=== PATIENT | female | born 1950 | race Caucasian/White ===

== ENCOUNTER → 2019-12-20 11:59 | Outpatient (CLI) | payer OTHER, SELFPAY ==
--- NOTE | ~2019-12-20 | US_ITS ---
US renal BI DATE: 12/20/2019 12:32 INDICATION: Chronic kidney disease stage III. TECHNIQUE: Real-time imaging of kidneys and urinary bladder COMPARISON: 09/01/2014 renal ultrasound examination FINDINGS: The right kidney measures approximately 9.7 cm length, the left kidney 10.8 cm length. No h ydronephrosis of either kidney is evident. There is an up to approximately 12 mm probable right renal cyst. No suspicious renal space occupying mass lesion of either kidney. There is increased echogenicity of the renal parenchyma bilaterally, suggesting bilateral chronic denis al disease. The urinary bladder is not visualized, apparently due to evacuation. IMPRESSION: Bilateral generalized increased renal parenchymal echogenicity, consistent with chronic m edical disease 12 mm probable right renal cyst Reviewed, dictated and finalized at Location [facility]. Reviewed, dictated and finalized at location B. IMPRESSION: Bilateral generalized increased renal parenchymal echogenicity, con sistent with chronic medical disease 12 mm probable right renal cyst
== END ==
PROVIDERS: PCP Family Medicine; Visit Provider Internal Medicine Nephrology
DX: N18.3 Chronic kidney disease, stage 3 (moderate) (principal)
CPT/HCPCS: 76775

== ENCOUNTER → 2020-05-21 09:57 | Outpatient (CLI) | payer OTHER, SELFPAY ==
--- NOTE | ~2020-05-21 | CT_ITS ---
EXAMINATION: CT chest w con DATE: 05/21/2020 10:36 INDICATION: Solitary pulmonary nodule TECHNIQUE: Transaxial computed tomographic images of the chest were obtained after the administration of 75 cc of Omnipaque 350 intravenous contrast. The dose-length product (DLP) was 682.34 mGy-cm. Ite rative reconstruction was used. COMPARISON: 09/12/2018 FINDINGS: An approximately 1.5 x 0.9 cm right perihilar lung nodule on image 52 is not significantly changed in size. Areas of atelectasis in the right middle lobe are unchanged. The lungs are free of a cute opacities. There is no pleural effusion or pneumothorax. The heart size is normal. There is a tr paula pericardial effusion. There is calcified coronary artery atherosclerosis. There are no pathologic ally enlarged thoracic lymph nodes. A stable 2 cm right adrenal mass is consistent with an adenoma. T he gallbladder is surgically absent. There is moderate thoracic spondylosis. IMPRESSION: 1. Stable right middle lobe nodule, probably benign given the lack of interval change. Reviewed, dictated and finalized at location A. NING SUPERVISOR
[2020-05-21 10:24] LABS: Estimated Glomerular Filt Rate 44
== END ==
PROVIDERS: PCP Family Medicine; Visit Provider Nurse Practitioner Family
DX: R91.1 Solitary pulmonary nodule (principal)
CPT/HCPCS: 71260; Q9967

== ENCOUNTER 2020-07-30 17:39 | Observation (INO) | payer OTHER, SELFPAY ==
--- NOTE | ~2020-07-30 | XR_ITS ---
EXAMINATION: XR chest 2V DATE: 07/30/2020 18:51 INDICATION: Left-sided chest pain TECHNIQUE: PA and lateral views of the chest are obtained. COMPARISON: 06/03/2019 FINDINGS: Cardiomegaly is noted. There is a mild diffuse interstitial pattern. No pleural effusion or pneumothorax is identified. No focal airspace opacities are seen. There is moderate thoracic spondyl osis. IMPRESSION: 1. Cardiomegaly with likely mild pulmonary edema. Reviewed, dictated and finalized at location A. TS ATHLETIC TRAINER
--- NOTE | ~2020-07-30 | NM_ITS ---
EXAMINATION: NM hi stress w perfusion EXAM DATE: 07/31/2020 15:28 INDICATION: Chest pain . TECHNIQUE: Rest images were obtained following intravenous administration of 9.8 mCi Tc99m tetrofosmi n (Myoview). The patient was infused intravenously with Lexiscan (regadenoson). Then, 30.9 mCi Tc99m tetrofosmin (Myoview) was administered intravenously, and stress images were obtained. Data was recon structed into short axis and horizontal and vertical long axis SPECT images. Gated SPECT images were also obtained. There is no prior study for comparison. FINDINGS: There is no definite reversible or fixed perfusion abnormality to suggest ischemia or infar ction. There is normal left ventricular wall motion. End diastolic volume: 103 mL. End-systolic volume: 48 mL. Left ventricular ejection fraction: 53%. IMPRESSION: 1. Normal myocardial perfusion at rest and during stress. 2. Left ventricular ejection fraction measuring 53%. Reviewed, dictated and finalized at location A. O INSPECTOR
--- NOTE | 2020-07-30 18:19 | ECG_ITS ---
Measurements Intervals [place] Rate: 82 P: [place]: 0 QRS: -19 QRSD: 78 T: 33 QT: 272 QTc: 319 Interpretive Statements ATRIAL FIBRILLATION LOW QRS VOLTAGE IN PRECORDIAL LEADS POOR R WAVE PROGRESSION, ANTERIOR LEADS BORDERLINE ST ABNORMALITY- HIGH LATERAL LEADS ABNORMAL ECG Electronically Signed On 07-30-2020 19:56:47 SYSTEMS ANALYST DEVELOPER by Lucho Mederos D.O.
[2020-07-30 19:16] VITALS: BP 118/55; PULSE 58; RESP 16; TEMP 36.5; O2SAT 100
[2020-07-30 19:32] LABS: Basophils Absolute Auto 0.1 K/mm3 (0.0-0.1); Basophils Percent Auto 0.7 % (0.2-1.2); Eosinophils Absolute Auto 0.3 K/mm3 (0-0.3); Eosinophils Percent Auto 3.5 % (0-4.4); Hematocrit 40.1 % (37.0-47.0); Hemoglobin 13.5 g/dL (12.0-15.0); Immature Granulocyte Absolute 0.04 K/mm3 (0.00-0.031); Immature Granulocyte Percent A 0.5 % (0-0.5); Lymphocytes Absolute Auto 1.75 K/mm3 (0.9-3.2); Lymphocytes Percent Auto 23.7 % (18.3-44.2); Mean Corpuscular HGB Conc 33.7 g/dl (32-36); Mean Platelet Volume 9.9 fl (7.4-10.4); Monocytes Absolute Auto 0.5 K/mm3 (0.1-0.6); Neutrophils Absolute Auto 4.8 K/mm3 (1.3-6.7); Neutrophils Percent Auto 64.6 % (45.5-73.1); Platelet Count Result 195 k/mm3 (150-375); Red Blood Count 4.22 M/mm3 (4.2-5.4); Red Cell Distribution Width 13.1 % (11.5-14.5); White Blood Count 7.4 K/mm3 (4.5-10.0)
[2020-07-30 19:44] LABS: Anion Gap 3 mmol/L (8-16); Blood Urea Nitrogen 21 mg/dL (7-17); Calcium 8.8 mg/dL (8.4-10.2); Carbon Dioxide 37 mmol/L (22-30); Chloride 99 mmol/L (98-107); Estimated Glomerular Filt Rate 55; Glucose 127 mg/dL (65-105); Potassium 3.3 mmol/L (3.4-5.0); Sodium 139 mmol/L (137-145)
[2020-07-30 19:45] LABS: INR 1.1; Prothrombin Time 15.1 Seconds (11.1-14.7)
[2020-07-30 19:46] LABS: Partial Thromboplastin Time 33.8 SECONDS (22.3-36.8)
[2020-07-30 19:57] LABS: Troponin I 0.013 ng/mL (0.000-0.034)
--- NOTE | 2020-07-30 22:14 | ED.CHESTPAIN ---
HPI - Chest Pain General Chief Complaint: Chest Pain Stated Complaint: CP Time Seen by Provider: 07/30/20 22:13 Source: patient Mode of arrival: ambulatory Limitations: no limitations History of Present Illness HPI narrative: Patient is a 70-year-old female complaining of chest pain, left-sided, tightness, 6 out of 10, nonradiating, started this morning. Patient denies any shortness of breath, abdominal pain, nausea, vomiting, diaphoresis, fever or chills. Related Data Home Medications Medication Instructions Recorded Confirmed aspirin [Adult Low Dose Aspirin] 81 mg PO HS 04/28/19 04/28/20 fluticasone propionate [Flonase 1 spray INTRANASAL DAILY PRN 04/28/19 04/28/20 Allergy Relief] latanoprost 1 drp OPHTHALMIC (EYE) HS 04/28/19 04/28/20 metoprolol succinate 50 mg PO DAILY 04/28/19 04/28/20 ferrous sulfate 324 mg (65 mg 324 mg PO TID tablet 05/14/19 04/28/20 iron) tablet,delayed release diltiazem HCl 120 mg PO DAILY 06/01/19 04/28/20 acetaminophen 500 mg tablet See Rx Instructions PO DAILY 08/22/19 04/28/20 tablet Allergies Allergy/AdvReac Type Severity Reaction Status Date / Time SUZE Inhibitors Allergy Mild Cough Verified 11/13/19 13:27 amoxicillin Allergy Mild Rash Verified 11/13/19 13:27 cat dander Allergy Mild Swelling Verified 11/13/19 13:27 of the Eye clavulanic acid Allergy Mild RASH Verified 11/13/19 13:27 adhesive AdvReac Mild BLISTERS Verified 11/13/19 13:27 Review of Systems Review of Systems: All systems reviewed & are unremarkable except as noted in HPI and below Constitutional: Constitutional: Denies body ache(s), Denies chills, Denies excessive sweating, Denies fatigue, Denies fever(s), Denies headache(s), Denies lethargy, Denies malaise, Denies weakness and Denies weight loss Eyes: Eyes: Denies blurry vision, Denies change in vision and Denies loss of vision ENT: Denies dizziness, Denies ear discharge, Denies headache(s), Denies lip swelling, Denies epistaxis, Denies nasal congestion, Denies neck pain, Denies throat swelling and Denies tongue swelling Cardiovascular: Cardiovascular: Denies diaphoresis, Denies rapid heart rate, Denies edema, Denies irregular heart rhythm, Denies lightheadedness, Denies palpitations, Denies dyspnea and Denies dyspnea on exertion Respiratory: Respiratory: Denies chest congestion, Denies cough, Denies hemoptysis, Denies dyspnea and Denies dyspnea on exertion Gastrointestinal: Gastrointestinal: Denies abdominal pain, Denies melena, Denies hematochezia, Denies diarrhea, Denies nausea, Denies vomiting and Denies hematemesis Musculoskeletal: Musculoskeletal: Denies abnormal gait, Denies deformity, Denies joint swelling, Denies limited range of motion, Denies neck pain and Denies numbness Neurologic: Denies Abnormal speech present, Denies abnormal gait, Denies confusion, Denies dizziness, Denies headache(s), Denies focal weakness, Denies loss of vision, Denies numbness, Denies Other visual disturbances, Denies Sensory deficit (Neuro) and Denies weakness Psychiatric: Psychiatric: Denies confusion, Denies depression, Denies auditory hallucinations, Denies homicidal ideation and Denies suicidal ideation Endocrine: Endocrine: Denies cold intolerance, Denies excessive sweating, Denies fatigue, Denies heat intolerance and Denies palpitations Hematologic/Lymphatic: Hematologic/Lymphatic: Denies easy bleeding and Denies easy bruising Allergic/Immunologic: Allergic/Immunologic: Denies lip swelling, Denies throat swelling and Denies tongue swelling PMFSH Past Medical History Medical History Acute kidney injury Anemia With history of blood transfusion. Aortic stenosis (~2017) Moderate aortic stenosis noted on echocardiogram in December 2017. Arthritis (~2009) Asthma Atrial fibrillation, chronic Bipolar 1 disorder Body mass index (BMI) 45.0-49.9, adult (12/19/18) Body mass index (BMI) of 50-59.9 in adult (02/24/18) Calcifi
[2020-07-30 22:22] VITALS: BP 155/102; PULSE 94; RESP 18; TEMP 36.6; O2SAT 97
[2020-07-30 22:39] VITALS: BP 144/81; PULSE 96; RESP 19; O2SAT 97
[2020-07-30] MEDS: ASPIRIN 81 MG CHEWABLE TABLET 324 MG PO (22:46)
[2020-07-30] MEDS: NITROGLYCERIN SL 0.4 MG TABLET SUBLINGUAL (22:47)
[2020-07-30 23:06] VITALS: BP 151/110; PULSE 93; RESP 24; O2SAT 96
[2020-07-30] MEDS: NITROGLYCERIN OINTMENT 1 INCH DOSE TRANSDERM (23:58)
[2020-07-30] MEDS: POTASSIUM CHLORIDE 20 MEQ PACKET (FOR LIQUID) PO (23:59)
[2020-07-31] VITALS (12 sets, daily range): BP systolic 111–162; BP diastolic 63–99; PULSE 61–107; RESP 16–20; TEMP 36.3–36.7; O2SAT 93–99; BMI 46.3
--- NOTE | 2020-07-31 00:46 | PM.IMHP ---
H&P: HPI History of Present Illness Date/Time: 07/31/20 00:46 Chief Complaint: Chest pain all day yesterday Narrative: This is a pleasant 70 year old morbidly obese Diabetic female with known history of heart failure and chronically anticoagulated on Xarelto secondary to atrial fibrillation and presented to the hospital [facility] with a complaint of left sided chest pain that has been ongoing since yesterday morning. Her chest pain is not positional or exertional in nature. Her chest pain is nonradiating. She denies any associated symptoms of shortness of breath, cough, dizziness, diaphoresis, or vomiting. The patient has had a distant stress test years ago but has never had a cardiac angiogram. She relates that her Liberal Arts Dean, Dr. Shi was considering to do a cardiac angiogram recently but decided to hold off. [facility] her chest pain resolved in the ER with nitroglycerin SL. Routine labs demonstrated hypokalemia. Initial troponin was negative. She has no other symptoms. Review of Systems Review of Systems: All systems reviewed & are unremarkable except as noted in HPI and below [facility] Past Medical History Medical History Acute kidney injury Anemia With history of blood transfusion. Aortic stenosis (~2017) Moderate aortic stenosis noted on echocardiogram in December 2017. Arthritis (~2009) Asthma Atrial fibrillation, chronic Bipolar 1 disorder Body mass index (BMI) 45.0-49.9, adult (12/19/18) Body mass index (BMI) of 50-59.9 in adult (02/24/18) Calcification of left breast on mammography CHF (congestive heart failure) (~2018) Chronic kidney disease, stage 3 (~05/2019) With history of temporary dialysis during lengthy hospitalization. CKD stage 3 due to type 2 diabetes mellitus Diabetic peripheral neuropathy Diastolic congestive heart failure (~2018) On echocardiogram in December 2017. Moderate pulmonary hypertension also noted at that time. Diverticulitis Essential (primary) hypertension GERD without esophagitis Glaucoma Gout H/O: HTN (hypertension) History of angina History of pneumonia Hx: UTI (urinary tract infection) Hypercholesteremia (~2009) Hyperlipidemia (~2009) Hypertensive heart and chronic kidney disease with heart failure and stage 1 through stage 4 chronic kidney disease, or unspecified chronic kidney disease senior care (current) use of insulin Major depressive disorder, recurrent, unspecified Morbid obesity (~2009) BMI 48.9. Obstructive sleep apnea (~2014) Uses a CPAP at nighttime. Paroxysmal atrial fibrillation (~2019) Peripheral neuropathy Postmenopausal Pulmonary nodule Rhinosinusitis Shortness of breath Toe fracture lt great toe fx. Type 2 diabetes mellitus with diabetic nephropathy, with long-term current use of insulin Type 2 diabetes mellitus with diabetic neuropathy Type 2 diabetes mellitus with hyperglycemia, with long-term current use of insulin Unspecified asthma with status asthmaticus Uterine cancer Status post hysterectomy. Vitamin D deficiency Surgical History Surgical History Cataracts, bilateral History of bilateral knee replacement History of total bilateral knee replacement History of tracheostomy After lengthy hospitalization in 2014. Hx of bilateral cataract extraction Status post appendectomy Status post cataract extraction Status post cholecystectomy Status post hysterectomy For uterine cancer. Family History Family History Mother Diabetes mellitus Sibling Family history of malignant neoplasm of thyroid Family history of atrial fibrillation Parkinsons disease Father Family history of congestive heart failure Parkinsons disease Other Asthma Family history of cardiovascular disease Family history of hearing loss Social History Social History Social His
--- NOTE | 2020-07-31 00:56 | ECG_ITS ---
Measurements Intervals [place] Rate: 79 P: [place]: 0 QRS: -21 QRSD: 94 T: 54 QT: 407 QTc: 468 Interpretive Statements ATRIAL FIBRILLATION LOW QRS VOLTAGE IN PRECORDIAL LEADS BORDERLINE R WAVE PROGRESSION, ANTERIOR LEADS BORDERLINE ST-T WAVE ABNORMALITY- HIGH LATERAL LEADS BASELINE ARTIFACT- I, II, III, AVR, AVL, AVF ABNORMAL ECG Electronically Signed On 07-31-2020 7:16:43 MEDICAL MALPRACTICE PARALEGAL by Lucho Mederos D.O.
[2020-07-31 01:49] LABS: Troponin I 0.016 ng/mL (0.000-0.034)
--- NOTE | 2020-07-31 01:54 | ADMGEN ---
This patient, Laurel Rucker, was admitted to IMU Room 201-01 at 0150 on 07/31/2020. Patient/family oriented to hospital policies and general routines including ID bracelet, bed and alarms, visiting hours, pain management, procedures, bathroom and other care routines, personal items, smoking policy, room service/diet, and visiting hours. Information on how to activate the Rapid Response Team has been discussed. Patient/Family are encouraged to report perceived risks to care and to ask questions if they do not understand what they are told or what they should do.
[2020-07-31] MEDS: GABAPENTIN 300 MG CAPSULE 600 MG PO (03:16)
[2020-07-31] MEDS: RIVAROXABAN 15 MG TABLET PO ×2 (03:16→17:30)
[2020-07-31 05:41] LABS: Troponin I < 0.012 ng/mL (0.000-0.034)
[2020-07-31 08:11] LABS: Hematocrit 39.4 % (37.0-47.0); Hemoglobin 12.8 g/dL (12.0-15.0); Mean Corpuscular HGB Conc 32.5 g/dl (32-36); Mean Corpuscular Hemoglobin 31.6 pg (26-34); Mean Corpuscular Volume 97.3 fl (80-100); Mean Platelet Volume 10.3 fl (7.4-10.4); Platelet Count Result 184 k/mm3 (150-375); Red Blood Count 4.05 M/mm3 (4.2-5.4); Red Cell Distribution Width 13.2 % (11.5-14.5); White Blood Count 5.8 K/mm3 (4.5-10.0)
[2020-07-31] MEDS: METOPROLOL SUCCINATE EXT REL 50 MG TABCR PO (08:11)
[2020-07-31] MEDS: FERROUS SULFATE 324 MG TABLET PO ×3 (08:11→17:29)
[2020-07-31] MEDS: GABAPENTIN 300 MG CAPSULE 600 MG BY MOUTH ×3 (08:11→17:30)
[2020-07-31] MEDS: hydrALAZINE HCL 25 MG TABLET PO ×3 (08:12→17:30)
[2020-07-31] MEDS: ACETAMINOPHEN 500 MG TABLET 1000 MG PO (08:12)
[2020-07-31 08:32] LABS: Anion Gap 6 mmol/L (8-16); Blood Urea Nitrogen 22 mg/dL (7-17); Calcium 8.8 mg/dL (8.4-10.2); Carbon Dioxide 35 mmol/L (22-30); Chloride 99 mmol/L (98-107); Estimated CRCL calculation 54 ml/min; Estimated Glomerular Filt Rate 44; Glucose 256 mg/dL (65-105); Magnesium 1.6 mg/dL (1.6-2.3); Potassium 3.3 mmol/L (3.4-5.0); Sodium 140 mmol/L (137-145)
--- NOTE | 2020-07-31 09:23 | PM.CNCAR ---
Assessment and Plan Assessment and plan (1) Chest pain: Qualifiers: Chest pain type: unspecified Qualified Code(s): R07.9 - Chest pain, unspecified Code(s): R07.9 - Chest pain, unspecified Status: Acute Assessment and Plan: Patient presents with chest pain relieved by nitroglycerin. Will order Lexiscan stress test to rule out ischemia. Continue aspirin (2) Atrial fibrillation: Qualifiers: Atrial fibrillation type: unspecified Qualified Code(s): I48.91 - Unspecified atrial fibrillation Code(s): I48.91 - Unspecified atrial fibrillation Status: Chronic Assessment and Plan: Permanent atrial fibrillation rate controlled. Continue metoprolol and diltiazem. Continue Xarelto and aspirin (3) Aortic stenosis: Onset Date: ~2017 Qualifiers: Cardiac valve disease etiology: etiology unspecified Qualified Code(s): I35.0 - Nonrheumatic aortic (valve) stenosis Code(s): I35.0 - Nonrheumatic aortic (valve) stenosis Status: Chronic Assessment and Plan: Moderate aortic stenosis which we will observe for now. History of Present Illness History of Present Illness Consult date/time: 07/31/20 09:23 Requesting physician: Chalo Nevarez MD Consult reason: chest pain Reason For Visit: chest pain/atrial fib Narrative: This is 70-year-old female who follows up with and with past medical history of moderate aortic stenosis, permanent atrial fibrillation with good heart rate control and on anticoagulation, hypertension, hyperlipidemia, diabetes, and CKD. She comes in today because she felt epigastric discomfort that lasted all day and then when she arrived here it was relieved by sublingual nitroglycerin. No radiation and it felt dull ache. Denies a limb edema, shortness of breath, dizziness, syncope, palpitations. Transesophageal echocardiogram June 13, 2020, ejection fraction 55%, severe left atrial enlargement, moderate aortic valve stenosis with aortic valve area 1.2 cm2 RVSP 32. Creatinine on admission was 1 and today 1.2. Troponins x3 negative. Chest x-ray reviewed and analyzed myself shows cardiomegaly and mild vascular congestion. EKG interpreted and analyze myself shows atrial fibrillation with controlled heart rate, left axis deviation, poor R-wave progression Review of Systems Constitutional: Constitutional: Denies chills, Denies fever(s) and Denies poor appetite Eyes: Eyes: Denies eye discharge, Denies loss of vision, Denies eye pain and Denies photophobia ENT: Denies dizziness, Denies epistaxis, Denies nasal congestion and Denies sore throat Cardiovascular: Cardiovascular: Reports chest pain, Denies syncope, Denies pedal edema, Denies leg edema, Denies palpitations, Denies dyspnea, Denies dyspnea on exertion and Denies orthopnea Respiratory: Respiratory: Denies cough, Denies dyspnea, Denies dyspnea on exertion and Denies wheezing Gastrointestinal: Gastrointestinal: Denies abdominal pain, Denies diarrhea, Denies nausea and Denies vomiting Genitourinary: Genitourinary: Denies hematuria, Denies genital lesions and Denies dysuria Musculoskeletal: Musculoskeletal: Denies arthralgias, Denies joint swelling and Denies numbness Integumentary/Breasts: Skin/Breast: Denies pruritus and Denies rash Neurologic: Denies dizziness, Denies syncope, Denies loss of vision and Denies numbness Psychiatric: Psychiatric: Denies anxiety and Denies depression Endocrine: Endocrine: Denies cold intolerance, Denies heat intolerance and Denies palpitations Hematologic/Lymphatic: Hematologic/Lymphatic: Denies easy bleeding and Denies easy bruising Allergic/Immunologic: Allergic/Immunologic: Denies urticaria and Denies wheezing PMFSH Past Medical History Medical History Acute kidney injury Anemia With history of blood transfusion. Aortic stenosis (~2018) Moderate aortic stenosis
--- NOTE | 2020-07-31 09:42 | EST_ITS ---
Patient Info Name: Laurel Rucker Age: 70 years : 1950 Gender: Female Ht: 67 in Wt: 298 lbs BSA: 2.60 m2 Technical Quality: Excellent Exam Date: 07/31/2020 1:33 PM Exam Location: [facility] Stress Patient Status: Inpatient Admit Date: 07/30/2020 Staff Ordering Physician: Dann Majano MD Attending Provider: Arpan Bro MD Exercise Technologist: Marlene Rubio RDCS Exercise Physician: Kylie Wagner MD Exam Type: CA stress hi w NM Study Info Indications R07.9 - Chest pain, unspecified A regadenoson stress test was performed. Summary 1. No abnormal ST-T wave changes with lexiscan. 2. Atrial fibrillation with a mildly increased ventricular rate. 3. Please correlate with nuclear medicine images, reported separately. Protocol: Lexiscan Stress ECG Details Stage: REST Duration (min): 7 min : 36 sec HR (bpm): 92 SBP (mmHg): 130 DBP (mmHg): 84 Stage: REST Duration (min): 9 min : 59 sec HR (bpm): 83 SBP (mmHg): 130 DBP (mmHg): 84 Stage: STAGE 1 Duration (min): 0 min : 59 sec HR (bpm): 99 SBP (mmHg): 130 DBP (mmHg): 84 Stage: RECOVERY Duration (min): 1 min : 0 sec HR (bpm): 98 SBP (mmHg): 111 DBP (mmHg): 82 Stage: RECOVERY Duration (min): 2 min : 0 sec HR (bpm): 109 SBP (mmHg): 111 DBP (mmHg): 82 Stage: RECOVERY Duration (min): 3 min : 0 sec HR (bpm): 96 SBP (mmHg): 117 DBP (mmHg): 82 Stage: RECOVERY Duration (min): 4 min : 0 sec HR (bpm): 108 SBP (mmHg): 117 DBP (mmHg): 82 Stage: RECOVERY Duration (min): 5 min : 0 sec HR (bpm): 88 SBP (mmHg): 202 DBP (mmHg): 115 Stage: RECOVERY Duration (min): 6 min : 0 sec HR (bpm): 108 SBP (mmHg): 202 DBP (mmHg): 115 Stage: RECOVERY Duration (min): 6 min : 19 sec HR (bpm): 101 SBP (mmHg): 122 DBP (mmHg): 86 Rest HR: 83 bpm Peak HR: 116 bpm Rest Sys BP: 130 mmHg Peak Sys BP: 202 mmHg Max Pred HR: 148 bpm % Max Pred HR: 78 % Target HR: 126 bpm Max RPP: 23,432 bpm*mmHg Total Time: 1 min : 0 sec Rest [place] BP: 84 mmHg Peak [place] BP: 115 mmHg Total Dose: 0.4 mg Resting ECG Atrial fibrillation, heart rate 99 at rest. Poor R-wave progression and left anterior hemiblock. Low voltage. Stress ECG No abnormal ST/T wave changes with exercise. Arrhythmias None. Report Signatures
[2020-07-31] MEDS: ACETAMINOPHEN 500 MG TABLET PO ×2 (12:22→17:31)
--- NOTE | 2020-07-31 14:51 | PM.IMPN ---
Progress Note: A&P Assessment and Plan (1) Chest pain: Qualifiers: Chest pain type: unspecified Qualified Code(s): R07.9 - Chest pain, unspecified Code(s): R07.9 - Chest pain, unspecified Status: Acute Assessment and Plan: The patient has been placed in observation status. Chest pain currently resolved. Check another EKG. Monitor for chest pain, telemetry, trend troponin, ASA therapy daily, continue beta nelsy. check lipid panel. Nitroglycerin SL for chest pain. Cardiology consultation in am. 07/31/20 14:51 Patient is 70-year-old morbidly obese female with history of diabetes, atrial fibrillation and anticoagulated with Xarelto, and history of congestive heart failure last echo showed ejection fraction of 55%, presented emergency department with a complaint of chest pain patient stated the pain was persisting from morning will see arrived at the hospital and was given some sublingual nitro which did help with the pain, patient 3 sets of cardiac enzymes are negative there are no acute changes on EKG patient was seen her screener and blender operator to further evaluate patient scheduled to have a Lexiscan test for which he just returned, currently patient states her pain is resolved denies any chest pain shortness of breath palpitation fever or chills. (2) Hypokalemia: Code(s): E87.6 - Hypokalemia Status: Acute Assessment and Plan: KCL given in ER. monitor serum potassium. (3) Atrial fibrillation: Qualifiers: Atrial fibrillation type: unspecified Qualified Code(s): I48.91 - Unspecified atrial fibrillation Code(s): I48.91 - Unspecified atrial fibrillation Status: Chronic Assessment and Plan: rate controlled. Continue Cardizem and Xarelto. 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 Continue home hypoglycemic medications. (5) Diastolic congestive heart failure: Onset Date: ~2018 Qualifiers: Heart failure chronicity: chronic Qualified Code(s): I50.32 - Chronic diastolic (congestive) heart failure Code(s): I50.30 - Unspecified diastolic (congestive) heart failure Status: Chronic Assessment and Plan: Currently compensated. Continue lasix and beta nelsy. (6) CKD stage 3 due to type 2 diabetes mellitus: Code(s): E11.22 - Type 2 diabetes mellitus with diabetic chronic kidney disease; N18.3 - Chronic kidney disease, stage 3 (moderate) Status: Chronic Assessment and Plan: stable. monitor renal function and urine output. (7) Essential (primary) hypertension: Code(s): I10 - Essential (primary) hypertension Status: Chronic Assessment and Plan: Monitor blood pressure. Continue metoprolol. PRN hydralazine w/ parameters. Subjective Date/time seen: 07/31/20 14:51 Patient is 70-year-old morbidly obese female with history of diabetes, atrial fibrillation and anticoagulated with Xarelto, and history of congestive heart failure last echo showed ejection fraction of 55%, presented emergency department with a complaint of chest pain patient stated the pain was persisting from morning will see arrived at the hospital and was given some sublingual nitro which did help with the pain, patient 3 sets of cardiac enzymes are negative there are no acute changes on EKG patient was seen her screener and blender operator to further evaluate patient scheduled to have a Lexiscan test for which he just returned, currently patient states her pain is resolved denies any chest pain shortness of breath palpitation fever or chills. Rev
--- NOTE | 2020-07-31 16:33 | PM.DS ---
DS: Admitting Diagnosis Admitting Diagnosis Admitting Diagnosis: Chief Complaint: Chest pain all day yesterday DS: Discharge Diagnosis Discharge Diagnosis (1) Chest pain: Qualifiers: Chest pain type: unspecified Qualified Code(s): R07.9 - Chest pain, unspecified Code(s): R07.9 - Chest pain, unspecified Status: Acute Assessment and Plan: The patient has been placed in observation status. Chest pain currently resolved. Check another EKG. Monitor for chest pain, telemetry, trend troponin, ASA therapy daily, continue beta nelsy. check lipid panel. Nitroglycerin SL for chest pain. Cardiology consultation in am. 07/31/20 14:51 Patient is 70-year-old morbidly obese female with history of diabetes, atrial fibrillation and anticoagulated with Xarelto, and history of congestive heart failure last echo showed ejection fraction of 55%, presented emergency department with a complaint of chest pain patient stated the pain was persisting from morning will see arrived at the hospital and was given some sublingual nitro which did help with the pain, patient 3 sets of cardiac enzymes are negative there are no acute changes on EKG patient was seen her manager mining to further evaluate patient scheduled to have a Lexiscan test for which he just returned, currently patient states her pain is resolved denies any chest pain shortness of breath palpitation fever or chills. (2) Hypokalemia: Code(s): E87.6 - Hypokalemia Status: Acute Assessment and Plan: KCL given in ER. monitor serum potassium. (3) Atrial fibrillation: Qualifiers: Atrial fibrillation type: unspecified Qualified Code(s): I48.91 - Unspecified atrial fibrillation Code(s): I48.91 - Unspecified atrial fibrillation Status: Chronic Assessment and Plan: rate controlled. Continue Cardizem and Xarelto. 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 Continue home hypoglycemic medications. (5) Diastolic congestive heart failure: Onset Date: ~2019 Qualifiers: Heart failure chronicity: chronic Qualified Code(s): I50.32 - Chronic diastolic (congestive) heart failure Code(s): I50.30 - Unspecified diastolic (congestive) heart failure Status: Chronic Assessment and Plan: Currently compensated. Continue lasix and beta nelsy. (6) CKD stage 3 due to type 2 diabetes mellitus: Code(s): E11.22 - Type 2 diabetes mellitus with diabetic chronic kidney disease; N18.3 - Chronic kidney disease, stage 3 (moderate) Status: Chronic Assessment and Plan: stable. monitor renal function and urine output. (7) Essential (primary) hypertension: Code(s): I10 - Essential (primary) hypertension Status: Chronic Assessment and Plan: Monitor blood pressure. Continue metoprolol. PRN hydralazine w/ parameters. DS: Summary Hospital Course Reason for hospitalization: Chief Complaint: Chest pain all day yesterday Narrative: This is a pleasant 70 year old morbidly obese Diabetic female with known history of heart failure and chronically anticoagulated on Xarelto secondary to atrial fibrillation and presented to the hospital [facility] with a complaint of left sided chest pain that has been ongoing since yesterday morning. Her chest pain is not positional or exertional in nature. Her chest pain is nonradiating. She denies any associated symptoms of shortness of breath, cough, dizziness, diaphoresis, or vomiting. The patient has had a distant stress test years ago but has n
[2020-07-31] MEDS: DULoxetine HCL 30 MG CAPSULE.DR PO (17:32)
== END 2020-07-31 18:00 | disposition home or self-care (01) ==
LOC: ANHED 23:37 → ANHIMU 07-31 02:57
PROVIDERS: Emergency Medicine; Admitting Provider Family Medicine; Emergency Provider Emergency Medicine; PCP Family Medicine; Visit Provider Family Medicine
DX: R07.9 Chest pain, unspecified (principal); E87.6 Hypokalemia; I13.0 Hypertensive heart and chronic kidney disease with heart failure and stage 1 through stage 4 chronic kidney disease, or unspecified chronic kidney disease; N18.30 Chronic kidney disease, stage 3 unspecified; E11.22 Type 2 diabetes mellitus with diabetic chronic kidney disease; I50.32 Chronic diastolic (congestive) heart failure; I48.21 Permanent atrial fibrillation; I25.10 Atherosclerotic heart disease of native coronary artery without angina pectoris; D64.9 Anemia, unspecified; I35.0 Nonrheumatic aortic (valve) stenosis; F31.9 Bipolar disorder, unspecified; E11.42 Type 2 diabetes mellitus with diabetic polyneuropathy; K21.9 Gastro-esophageal reflux disease without esophagitis; M10.9 Gout, unspecified; E78.5 Hyperlipidemia, unspecified; G47.33 Obstructive sleep apnea (adult) (pediatric); E11.21 Type 2 diabetes mellitus with diabetic nephropathy; J45.909 Unspecified asthma, uncomplicated; E55.9 Vitamin D deficiency, unspecified; Z85.42 Personal history of malignant neoplasm of other parts of uterus; Z79.82 Long term (current) use of aspirin; Z79.4 Long term (current) use of insulin; Z79.01 Long term (current) use of anticoagulants; Z79.51 Long term (current) use of inhaled steroids
CPT/HCPCS: 36415; 71046; 78452; 80048; 83735; 84484; 85025; 85027; 85610; 85730; 93005; 93017; 99285; A9270; A9502; G0378; J2785

== ENCOUNTER → 2020-09-13 01:01 | Outpatient (CLI) | payer OTHER, SELFPAY ==
[2020-09-13 19:44] LABS: SARS-CoV-2 RNA PCR Negative
== END ==
PROVIDERS: PCP Family Medicine; Visit Provider Internal Medicine Gastroenterology
DX: Z01.812 Encounter for preprocedural laboratory examination (principal); Z20.822 Contact with and (suspected) exposure to COVID-19
CPT/HCPCS: C9803; U0003; U0005

== ENCOUNTER 2020-09-17 02:49 | Day surgery (SDC) | payer OTHER, SELFPAY ==
[2020-09-04 14:21] VITALS: BMI 99.4
[2020-09-17 07:55] VITALS: BP 123/78; PULSE 70; RESP 20; TEMP 36.8; O2SAT 95; BMI 46.0
[2020-09-17] MEDS: LACTATED RINGERS 1,000 ML 150 ML IV CONT (08:13)
[2020-09-17 08:16] LABS: Glucose Point of Care 175 (65-105)
--- NOTE | 2020-09-17 08:50 | WPDANESEPPF ---
Anes - Initial Pre Proc Eval Procedure: Operation Date: 09/17/20 09:00 Proposed Procedures p Screening Colonoscopy - Delmer Hernandez MD Date/Time: 09/17/20 08:50 Surgeon: Delmer Hernandez MD Pre Op Diagnosis: neoplasm screening Patient Data Age: 70 Gender: F Height: 5 ft 7 in Weight: 133.5 kg Last Vital Signs Temp 98.2 F 09/17/20 07:55 Pulse 70 09/17/20 07:55 Resp 20 09/17/20 07:55 BP 123/78 09/17/20 07:55 Pulse Ox 95 09/17/20 07:55 Allergies Allergy/AdvReac Type Severity Reaction Status Date / Time SUZE Inhibitors Allergy Mild Cough Verified 09/17/20 07:54 amoxicillin Allergy Mild Rash Verified 09/17/20 07:54 cat dander Allergy Mild Swelling Verified 09/17/20 07:54 of the Eye clavulanic acid Allergy Mild RASH Verified 09/17/20 07:54 adhesive AdvReac Mild BLISTERS Verified 09/17/20 07:54 Home Medications Medication Instructions Recorded Confirmed Type aspirin [Adult Low Dose Aspirin] 81 mg PO HS 04/28/19 09/17/20 History fluticasone propionate [Flonase 1 spray INTRANASAL PRN PRN 04/28/19 09/17/20 History Allergy Relief] latanoprost 1 drp OPHTHALMIC (EYE) HS 04/28/19 09/17/20 History metoprolol succinate 50 mg PO DAILY 04/28/19 09/17/20 History ferrous sulfate 324 mg (65 mg 324 mg PO TID tablet 05/14/19 09/17/20 History iron) tablet,delayed release rivaroxaban 15 mg tablet 15 mg PO DAILY #60 tablet 05/16/19 09/17/20 Rx diltiazem HCl 120 mg PO QPM 06/01/19 09/17/20 History albuterol sulfate 90 mcg/actuation 2 puff INHALATION Q4H PRN #18 gm 06/27/19 09/17/20 Rx aerosol inhaler acetaminophen 500 mg tablet See Rx Instructions PO DAILY 08/22/19 09/17/20 History tablet Tresiba FlexTouch U-100 100 14 unit SUB-Q QPM 90 Days #15 ml NS 04/28/20 09/17/20 Rx unit/mL (3 mL) subcutaneous pen montelukast 10 mg tablet See Rx Instructions .ROUTE 06/23/20 09/17/20 Rx .COMPLEX #90 tablet hydralazine 25 mg tablet 25 mg PO TID #270 tablet 07/21/20 09/17/20 Rx furosemide 20 mg tablet See Rx Instructions .ROUTE 07/22/20 09/17/20 Rx .COMPLEX #90 tablet furosemide 40 mg tablet See Rx Instructions .ROUTE 07/22/20 09/17/20 Rx .COMPLEX #180 tablet duloxetine 30 mg PO QPM 07/31/20 09/17/20 History insulin aspart U-100 [Novolog 1 sliding scale dose SUBCUT 07/31/20 09/17/20 History U-100 Insulin aspart] USEASDIRECTD gabapentin 300 mg capsule See Rx Instructions .ROUTE 08/10/20 09/17/20 Rx .COMPLEX #180 cap blood sugar diagnostic #200 ea 08/27/20 09/04/20 Rx lancets #200 ea 08/27/20 09/04/20 Rx rosuvastatin 5 mg tablet 5 mg PO DAILY #90 tablet 08/27/20 09/17/20 Rx Laboratory Tests 09/17/20 08:02 POC Capillary Glucose 175 mg/dl H mg/dl (65-105) Patient hx anesthesia problems: none Family hx anesthesia problems: none PMFSH Past Medical History Medical History Acute kidney injury Anemia With history of blood transfusion. Aortic stenosis (~2017) Moderate aortic stenosis noted on echocardiogram in December 2017. Arthritis (~2009) Asthma Atrial fibrillation, chronic Bipolar 1 disorder Body mass index (BMI) 45.0-49.9, adult (12/19/18) Body mass index (BMI) of 50-59.9 in adult (02/24/18) Calcification of left breast on mammography CHF (congestive heart failure) (~2018) Chronic kidney disease, stage 3 (~05/2019) With history of temporary dialysis during lengthy hospitalization. CKD stage 3 due to type 2 diabetes mellitus Diabetic peripheral neuropathy Diastolic congestive heart failure (~2018) On echocardiogram in December 2017. Moderate pulmonary hypertension also noted at that time. Diverticulitis Essential (primary) hypertension GERD without esophagitis Glaucoma Gout H/O: HTN (hypertension) History of angina History of pneumonia Hx: UTI (urinary tract infection) Hypercholesteremia (~2009) Hyperlipidemia (~2009) Hypertensive heart and chronic kidney disease with heart failure and s
--- NOTE | 2020-09-17 09:03 | PM.HPGS ---
History of Present Illness History of Present Illness Consent: Risks, benefits, and alternatives have been discussed and questions answered. Patient agrees to proceed with procedure. Chief complaint: neoplasm screening Narrative: Laurel Rucker is a 70 year old female with positive cologuard, last colonoscopy 15 years ago Review of Systems Constitutional: Constitutional: Denies headache(s) and Denies weakness Eyes: Eyes: Denies blurry vision ENT: Reports Normal hearing present, Denies headache(s) and Denies neck pain Cardiovascular: Cardiovascular: Denies chest pain and Denies dyspnea Respiratory: Respiratory: Denies dyspnea Gastrointestinal: Gastrointestinal: Reports no additional gastrointestinal complaints Genitourinary: Genitourinary: Denies dysuria Musculoskeletal: Musculoskeletal: Denies neck pain Integumentary/Breasts: Skin/Breast: Denies dry skin Neurologic: Reports Normal hearing present, Denies headache(s) and Denies weakness Psychiatric: Psychiatric: Denies anxiety Endocrine: Endocrine: Denies change in body appearance Hematologic/Lymphatic: Hematologic/Lymphatic: Denies easy bleeding Allergic/Immunologic: Allergic/Immunologic: Denies urticaria PMFSH Past Medical History Medical History Acute kidney injury Anemia With history of blood transfusion. Aortic stenosis (~2017) Moderate aortic stenosis noted on echocardiogram in December 2017. Arthritis (~2009) Asthma Atrial fibrillation, chronic Bipolar 1 disorder Body mass index (BMI) 45.0-49.9, adult (12/19/18) Body mass index (BMI) of 50-59.9 in adult (02/24/18) Calcification of left breast on mammography CHF (congestive heart failure) (~2018) Chronic kidney disease, stage 3 (~05/2019) With history of temporary dialysis during lengthy hospitalization. CKD stage 3 due to type 2 diabetes mellitus Diabetic peripheral neuropathy Diastolic congestive heart failure (~2018) On echocardiogram in December 2017. Moderate pulmonary hypertension also noted at that time. 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 Obstructive sleep apnea (~2014) Uses a CPAP at nighttime. Paroxysmal atrial fibrillation (~2019) Peripheral neuropathy Postmenopausal Pulmonary nodule Rhinosinusitis Shortness of breath Toe fracture lt great toe fx. Type 2 diabetes mellitus with diabetic nephropathy, with long-term current use of insulin Type 2 diabetes mellitus with diabetic neuropathy Type 2 diabetes mellitus with hyperglycemia, with long-term current use of insulin Unspecified asthma with status asthmaticus Uterine cancer Status post hysterectomy. Vitamin D deficiency Surgical History Surgical History Cataracts, bilateral History of bilateral knee replacement History of total bilateral knee replacement History of tracheostomy After lengthy hospitalization in 2014. Hx of bilateral cataract extraction Status post appendectomy Status post cataract extraction Status post cholecystectomy Status post hysterectomy For uterine cancer. Family History Family History Mother Diabetes mellitus Sibling Family history of malignant neoplasm of thyroid Family history of atrial fibrillation Parkinsons disease Father Family history of congestive heart failure Parkinsons disease Other Asthma Family history of cardiovascular disease Family history of he
[2020-09-17 09:44] VITALS: BP 123/81; PULSE 94; RESP 18; O2SAT 98
[2020-09-17 09:54] VITALS: BP 128/77; PULSE 107; RESP 22; O2SAT 98
[2020-09-17 10:04] VITALS: BP 139/95; PULSE 108; RESP 23; O2SAT 99
[2020-09-17 10:08] LABS: Glucose Point of Care 147 (65-105)
== END 2020-09-17 10:21 | disposition home or self-care (01) ==
PROVIDERS: PCP Family Medicine; Visit Provider Internal Medicine Gastroenterology
PROC: 0DJD8ZZ Inspection of Lower Intestinal Tract, Via Natural or Artificial Opening Endoscopic (ICD-10-PCS; CPT 45378; principal; 2020-09-17 09:00)
DX: Z12.11 Encounter for screening for malignant neoplasm of colon (principal); R19.5 Other fecal abnormalities; D12.3 Benign neoplasm of transverse colon; D12.2 Benign neoplasm of ascending colon; D12.4 Benign neoplasm of descending colon; K57.30 Diverticulosis of large intestine without perforation or abscess without bleeding; K64.8 Other hemorrhoids; I13.0 Hypertensive heart and chronic kidney disease with heart failure and stage 1 through stage 4 chronic kidney disease, or unspecified chronic kidney disease; I50.30 Unspecified diastolic (congestive) heart failure; E11.22 Type 2 diabetes mellitus with diabetic chronic kidney disease; E11.42 Type 2 diabetes mellitus with diabetic polyneuropathy; N18.30 Chronic kidney disease, stage 3 unspecified; D64.9 Anemia, unspecified; I48.20 Chronic atrial fibrillation, unspecified; K21.9 Gastro-esophageal reflux disease without esophagitis; M10.9 Gout, unspecified; H40.9 Unspecified glaucoma; F31.9 Bipolar disorder, unspecified; E78.00 Pure hypercholesterolemia, unspecified; G47.33 Obstructive sleep apnea (adult) (pediatric); E78.5 Hyperlipidemia, unspecified; E11.21 Type 2 diabetes mellitus with diabetic nephropathy; J45.909 Unspecified asthma, uncomplicated; E55.9 Vitamin D deficiency, unspecified; Z85.42 Personal history of malignant neoplasm of other parts of uterus; Z79.51 Long term (current) use of inhaled steroids; Z79.82 Long term (current) use of aspirin; Z79.4 Long term (current) use of insulin; E66.01 Morbid (severe) obesity due to excess calories; Z68.42 Body mass index [BMI] 45.0-49.9, adult
CPT/HCPCS: 45385; 82948; 88305; C9803; J2704; J7120; U0003; U0005

== ENCOUNTER 2020-10-02 22:03 | Emergency (ER) | payer OTHER, SELFPAY ==
--- NOTE | ~2020-10-02 | XR_ITS ---
EXAMINATION: XR foot LT min 3V DATE: 10/02/2020 22:25 INDICATION: Left foot pain. TECHNIQUE: 4 views of left foot were obtained. COMPARISON: Left foot radiographs 01/13/2018 FINDINGS: Bone alignment is normal. There is diffuse osteopenia. No acute fracture. There is an old h ealed fracture of base of first proximal phalanx. There is mild osteoarthritis of first metatarsophal angeal joint and some of the interphalangeal joints and midfoot joints. There are enthesophytes at th e posterior and plantar aspects of calcaneal tuberosity. IMPRESSION: 1. Mild polyarticular osteoarthritis. Reviewed, dictated and finalized at location A.
--- NOTE | ~2020-10-02 | XR_ITS ---
EXAMINATION: XR hip LT 2V w AP pelvis DATE: 10/02/2020 22:25 INDICATION: Left hip pain. TECHNIQUE: An anteroposterior view of the pelvis and 2 views of left hip were obtained. COMPARISON: None. FINDINGS: Bone alignment is normal. No fracture. The hip joint spaces are normal. There is severe low er lumbar spondylosis. Osteitis pubis is noted. IMPRESSION: 1. Osteitis pubis. 2. Severe lower lumbar spondylosis. Reviewed, dictated and finalized at location A.
[2020-10-02 22:10] VITALS: BP 147/74; PULSE 58; RESP 17; TEMP 36.3; O2SAT 100
--- NOTE | 2020-10-02 23:09 | ED.LOWEXIN ---
HPI - Extremity Injury (Lower) General Chief Complaint: Extremity Injury, Lower Stated Complaint: LEFT FOOT PAIN POST FALL Time Seen by Provider: 10/02/20 22:24 Source: patient Mode of arrival: EMS Limitations: no limitations History of Present Illness HPI Narrative: 70-year-old with history of diabetes, hypertension was brought in from home with complaints of fall. Patient states that she accidentally tripped on a box and fell. She complains of left foot and left hip pain. She denies any head injuries or loss of consciousness. MD complaint: hip injury (left), foot injury (left) and fall Onset (ago): hour(s) (1) Injury: Left: hip and foot Place: home Severity: moderate Relieving factors: nothing Exacerbating factors: weight bearing and movement Context: fall Other symptoms: none Related Data Home Medications Medication Instructions Recorded Confirmed aspirin [Adult Low Dose Aspirin] 81 mg PO HS 04/28/19 09/17/20 fluticasone propionate [Flonase 1 spray INTRANASAL PRN PRN 04/28/19 09/17/20 Allergy Relief] latanoprost 1 drp OPHTHALMIC (EYE) HS 04/28/19 09/17/20 metoprolol succinate 50 mg PO DAILY 04/28/19 09/17/20 ferrous sulfate 324 mg (65 mg 324 mg PO TID tablet 05/14/19 09/17/20 iron) tablet,delayed release diltiazem HCl 120 mg PO QPM 06/01/19 09/17/20 acetaminophen 500 mg tablet See Rx Instructions PO DAILY 08/22/19 09/17/20 tablet duloxetine 30 mg PO QPM 07/31/20 09/17/20 insulin aspart U-100 [Novolog 1 sliding scale dose SUBCUT 07/31/20 09/17/20 U-100 Insulin aspart] USEASDIRECTD Allergies Allergy/AdvReac Type Severity Reaction Status Date / Time SUZE Inhibitors Allergy Mild Cough Verified 10/02/20 22:14 amoxicillin Allergy Mild Rash Verified 10/02/20 22:14 cat dander Allergy Mild Swelling Verified 10/02/20 22:14 of the Eye clavulanic acid Allergy Mild RASH Verified 10/02/20 22:14 adhesive AdvReac Mild BLISTERS Verified 10/02/20 22:14 Review of Systems Review of Systems: All systems reviewed & are unremarkable except as noted in HPI and below Constitutional: Constitutional: Reports no additional constitutional complaints Eyes: Eyes: Reports no additional eye complaints ENT: Reports system reviewed and no additional complaints, except as documented Cardiovascular: Cardiovascular: Reports no additional cardiovascular complaints Respiratory: Respiratory: Reports no additional respiratory complaints Gastrointestinal: Gastrointestinal: Reports no additional gastrointestinal complaints Musculoskeletal: Musculoskeletal: Reports as per HPI Neurologic: Reports system reviewed and no additional complaints, except as documented [facility] Past Medical History Medical History Acute kidney injury Anemia With history of blood transfusion. Aortic stenosis (~2017) Moderate aortic stenosis noted on echocardiogram in December 2017. Arthritis (~2009) Asthma Atrial fibrillation, chronic Bipolar 1 disorder Body mass index (BMI) 45.0-49.9, adult (12/19/18) Body mass index (BMI) of 50-59.9 in adult (02/24/18) Calcification of left breast on mammography CHF (congestive heart failure) (~2018) Chronic kidney disease, stage 3 (~05/2019) With history of temporary dialysis during lengthy hospitalization. CKD stage 3 due to type 2 diabetes mellitus Diabetic peripheral neuropathy Diastolic congestive heart failure (~2018) On echocardiogram in December 2017. Moderate pulmonary hypertension also noted at that time. 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
[2020-10-02 23:40] VITALS: BP 148/105; PULSE 50; RESP 18; O2SAT 96
== END 2020-10-02 23:40 | disposition home or self-care (01) ==
PROVIDERS: Emergency Provider Family Medicine; PCP Family Medicine
DX: S70.02XA Contusion of left hip, initial encounter (principal); S90.32XA Contusion of left foot, initial encounter; I48.0 Paroxysmal atrial fibrillation; E11.22 Type 2 diabetes mellitus with diabetic chronic kidney disease; I13.0 Hypertensive heart and chronic kidney disease with heart failure and stage 1 through stage 4 chronic kidney disease, or unspecified chronic kidney disease; N18.30 Chronic kidney disease, stage 3 unspecified; I50.30 Unspecified diastolic (congestive) heart failure; E11.43 Type 2 diabetes mellitus with diabetic autonomic (poly)neuropathy; E11.21 Type 2 diabetes mellitus with diabetic nephropathy; G47.33 Obstructive sleep apnea (adult) (pediatric); K21.9 Gastro-esophageal reflux disease without esophagitis; D64.9 Anemia, unspecified; I35.0 Nonrheumatic aortic (valve) stenosis; E78.5 Hyperlipidemia, unspecified; J45.909 Unspecified asthma, uncomplicated; M10.9 Gout, unspecified; E55.9 Vitamin D deficiency, unspecified; F32.9 Major depressive disorder, single episode, unspecified; Z85.42 Personal history of malignant neoplasm of other parts of uterus; Z79.4 Long term (current) use of insulin; Z79.82 Long term (current) use of aspirin; Z79.01 Long term (current) use of anticoagulants; Z98.42 Cataract extraction status, left eye; Z98.41 Cataract extraction status, right eye; Z96.653 Presence of artificial knee joint, bilateral; W22.8XXA Striking against or struck by other objects, initial encounter
CPT/HCPCS: 73502; 73630; 99284

== ENCOUNTER 2020-10-11 00:58 | Inpatient (IN) | payer OTHER, SELFPAY ==
[2020-10-11] VITALS (11 sets, daily range): BP systolic 92–130; BP diastolic 48–81; PULSE 53–93; RESP 14–22; TEMP 36.6–36.8; O2SAT 93–98; BMI 46.0
--- NOTE | ~2020-10-11 | XR_ITS ---
XR foot LT min 3V DATE: 10/11/2020 02:19 INDICATION: Fall. Left foot pain. TECHNIQUE: 4 views COMPARISON: 10/02/2020 left foot FINDINGS: Diffuse osteopenia. Minimal plantar and posterior calcaneal enthesopathy. No recent fracture or dislocation, periosteal reaction or bone destruction. IMPRESSION: No fracture or dislocation Diffuse osteopenia Minimal calcaneal enthesopathy Reviewed, dictated and finalized at location A.
--- NOTE | ~2020-10-11 | CT_ITS ---
EXAMINATION: CT chest abdomen pelvis wo con DATE: 10/11/2020 02:08 INDICATION: Fall. Chest wall pain, back pain, hip pain TECHNIQUE: Computed tomography (CT) of the chest, abdomen, and pelvis was performed without intraveno us contrast. Automated exposure control and iterative reconstruction technique were employed. Exam do se: 1781.61 mGy-cm total exam DLP. COMPARISON: 05/21/2020 CT chest FINDINGS: CHEST CT: Cardiomegaly. Extensive coronary artery calcifications. Aortic valve calcification. Mitral annulus ca lcification Mild pericardial effusion. No pneumothorax. Multifocal subsegmental atelectasis. Mild bronchiectasis of the middle and right up per lobes. No pulmonary mass lesion is evident. ABDOMEN/PELVIS CT: Small sliding hiatal hernia. Status post cholecystectomy. No hepatic, splenic, pancreatic mass lesion. 1.6 x 2.3 cm right adrenal hypoattenuating lesion, likely a small adrenal adenoma. Adrenal glands are otherwise unremarkable. No renal mass lesion or urinary tract calculus or hydroureteronephrosis. Unremarkable urinary bladder . Status post hysterectomy. There is atherosclerotic calcification of the abdominal aorta. No abdominal aortic aneurysm. No intra peritoneal or retroperitoneal or pelvic mass lesion or adenopathy or ascites. Diverticulosis of left and right colon; no CT evidence of diverticulitis. Normal appendix. No bowel obstruction, bowel wall thickening, pneumatosis or intraperitoneal free air . Diffuse idiopathic skeletal hyperostosis of the lower thoracic spine. Multilevel degenerative disc di sease of the lumbar spine. Grade 1 anterolisthesis at L4-5 due to degenerative change at the apophyse al joints. No suspicious osteolytic or osteoblastic lesions are noted. IMPRESSION: Cardiomegaly, coronary atherosclerosis Small sliding hiatal hernia Status post cholecystectomy Small right adrenal adenoma Diverticulosis of the colon; no CT evidence of diverticulitis Normal appendix Reviewed, dictated and finalized at Location [facility]. Reviewed, dictated and finalized at location A.
--- NOTE | ~2020-10-11 | XR_ITS ---
XR knee RT 3V DATE: 10/11/2020 02:19 INDICATION: Fall. Right knee pain TECHNIQUE: 3 views COMPARISON: 03/29/2015 right knee FINDINGS: Status post right total knee arthroplasty with patellar resurfacing. No recent fracture or dislocation. No periosteal reaction or bone destruction. IMPRESSION: Status post right total knee arthroplasty with patellar resurfacing No fracture or dislocation Reviewed, dictated and finalized at location A.
--- NOTE | ~2020-10-11 | XR_ITS ---
XR foot RT min 3V DATE: 10/11/2020 02:19 INDICATION: Fall. Right foot pain. TECHNIQUE: 4 views COMPARISON: None FINDINGS: Diffuse osteopenia. Prominent plantar and minimal posterior calcaneal enthesopathy. Degenerative change of the talonavicular joint. Os tibiale externum. No fracture, dislocation, periosteal reaction or bone destruction is detected. IMPRESSION: No fracture or dislocation Osteopenia Calcaneal enthesopathy Reviewed, dictated and finalized at location A.
--- NOTE | ~2020-10-11 | XR_ITS ---
XR femur RT min 2V DATE: 10/11/2020 09:42 INDICATION: Fall. Right hip and leg pain TECHNIQUE: AP and lateral views of right femur COMPARISON: None FINDINGS: Status post right total knee arthroplasty with patellar resurfacing. Diffuse osteopenia. No fracture or dislocation, periosteal reaction or bone destruction of the right femur. Osteitis pubis. IMPRESSION: No fracture or dislocation right femur Right total knee arthroplasty Reviewed, dictated and finalized at location A.
--- NOTE | ~2020-10-11 | CT_ITS ---
EXAMINATION: CT femur RT wo con EXAM DATE: 10/12/2020 18:15 INDICATION: R/o hematoma of right thigh. Injury. TECHNIQUE: Spiral CT femur RT wo con was performed without contrast. Axial, coronal and sagittal im ages were reviewed. The dose-length product (DLP) for this examination was 1469.02 mGy-cm. The expo sure was tailored according to patient size (auto mA exposure control), and iterative reconstruction (ASIR) was used as additional dose reduction technique. There is no prior study for comparison. FINDINGS: There is heterogeneous region in the vastus intermedius, with more central low density area measuring about 1.8 x 3.0 cm greatest axial dimensions by 7.7 cm in length. Probably an intramuscula r hematoma. Fat planes surrounding this muscle are indistinct, edematous. There are no acute fracture s identified. Artifact from right knee arthroplasty. IMPRESSION: Right vastus intermedius intramuscular hematoma. Reviewed, dictated and finalized at location A.
--- NOTE | ~2020-10-11 | CT_ITS ---
EXAMINATION: CT brain wo con DATE: 10/11/2020 09:50 INDICATION: Fall. Head trauma. TECHNIQUE: Computed tomography (CT) of the head was performed without intravenous contrast. The mA wa s adjusted according to patient size. Iterative reconstruction technique was employed. Exam dose: 60 5.33 mGy-cm total exam DLP. COMPARISON: None FINDINGS: No intracranial mass lesion or hemorrhage or cerebrovascular accident is evident. No midlin e shift or mass effect effect. There is nonspecific diminished attenuation of the cerebral white matter, likely due to chronic small vessel ischemic changes. Prominent bilateral carotid siphon internal carotid artery calcifications a re noted. No subdural or epidural hematoma. No fracture or bone destruction of the cranial vault. The mastoid air cells and included paranasal si nuses are unremarkable. IMPRESSION: Cerebral atherosclerosis and chronic small vessel ischemic changes of the cerebral white matter No acute intracranial finding Reviewed, dictated and finalized at Location [facility]. Reviewed, dictated and finalized at location A.
--- NOTE | ~2020-10-11 | XR_ITS ---
XR hip RT 2V w AP pelvis DATE: 10/11/2020 09:42 INDICATION: Fall. Right hip pain. TECHNIQUE: AP pelvis. AP and lateral views of right hip. COMPARISON: 10/11/2020 right femur 10/02/2020 pelvis and left hip FINDINGS: Diffuse osteopenia. Mild osteitis pubis. The sacroiliac joints are intact No pelvic fracture or bone destruction is detected. No fracture or dislocation, avascular necrosis or bone destruction of the right hip is noted. IMPRESSION: No pelvic or right hip fracture or dislocation Osteopenia Reviewed, dictated and finalized at location A.
--- NOTE | ~2020-10-11 | CT_ITS ---
EXAMINATION: CT cervical spine wo con DATE: 10/11/2020 02:08 INDICATION: Neck pain following fall TECHNIQUE: Computed tomography (CT) of the cervical spine was performed without intravenous contrast. Automated exposure control and iterative reconstruction technique were employed. Exam dose: 564.59 mGy-cm total exam DLP. COMPARISON: None FINDINGS: Mild levoscoliosis. There is straightening of the cervical spine which may be due to positi oning and/or muscle spasm. C1 and C2 are normally aligned and the odontoid process is intact. No fracture or dislocation or locked facet or prevertebral soft tissue swelling. Cervical interspaces are relatively well preserved. There is degenerative change at some of the apophyseal joints. IMPRESSION: Mild levoscoliosis Straightening, which may be due to muscle spasm and/or positioning Mild degenerative change, primarily affecting the facet joints Reviewed, dictated and finalized at Location [facility]. Reviewed, dictated and finalized at location A.
[2020-10-11 02:49] LABS: Basophils Absolute Auto 0.1 K/mm3 (0.0-0.1); Basophils Percent Auto 0.9 % (0.2-1.2); Eosinophils Absolute Auto 0.4 K/mm3 (0-0.3); Eosinophils Percent Auto 5.1 % (0-4.4); Hematocrit 36.2 % (37.0-47.0); Hemoglobin 12.2 g/dL (12.0-15.0); Immature Granulocyte Absolute 0.03 K/mm3 (0.00-0.031); Immature Granulocyte Percent A 0.4 % (0-0.5); Lymphocytes Absolute Auto 1.31 K/mm3 (0.9-3.2); Lymphocytes Percent Auto 18.7 % (18.3-44.2); Mean Corpuscular HGB Conc 33.7 g/dl (32-36); Mean Corpuscular Hemoglobin 31.9 pg (26-34); Mean Corpuscular Volume 94.5 fl (80-100); Mean Platelet Volume 10.2 fl (7.4-10.4); Monocytes Absolute Auto 0.5 K/mm3 (0.1-0.6); Monocytes Percent Auto 6.7 % (2.6-8.5); Neutrophils Absolute Auto 4.8 K/mm3 (1.3-6.7); Neutrophils Percent Auto 68.2 % (45.5-73.1); Platelet Count Result 215 k/mm3 (150-375); Red Blood Count 3.83 M/mm3 (4.2-5.4); Red Cell Distribution Width 13.2 % (11.5-14.5)
[2020-10-11 02:56] LABS: Add Urine Microscopic? YES; Amorphous Sediment Urine Few; Appearance Urine Cloudy (Clear); Bacteria Urine Trace /hpf; Bilirubin Urine Negative (Negative); Blood Urine 1+ (Negative); Color Urine Yellow (Yellow); Glucose Urine UA Negative (Negative); Ketones Urine Negative (Negative); Leukocyte Esterase Ur 3+ LEU/UL (Negative); Mucus Urine Rare /lpf; Nitrate Urine Negative (Negative); Protein Urine 1+ mg/dL (Negative); Squamous Epithelial Cell Urine Few /hpf (Few); Transitional Epi Cells Urine Rare /hpf (None Seen); Urobilinogen Urine Negative mg/dL (<2.0); WBC Urine 51-75 /hpf
[2020-10-11 03:14] LABS: Alanine Aminotransferase 10 U/L (4-35); Albumin Level 3.6 g/dL (3.5-5.1); Alkaline Phosphatase 74 U/L (38-126); Anion Gap 4 mmol/L (8-16); Aspartate Amino Transferase 20 U/L (14-36); Bilirubin,Total 0.7 mg/dL (0.2-1.3); Blood Urea Nitrogen 29 mg/dL (7-17); Carbon Dioxide 34 mmol/L (22-30); Chloride 98 mmol/L (98-107); Estimated CRCL calculation 65 ml/min; Estimated Glomerular Filt Rate 55; Glucose 328 mg/dL (65-105); Potassium 3.4 mmol/L (3.4-5.0); Sodium 136 mmol/L (137-145)
--- NOTE | 2020-10-11 05:14 | ED.GENADULT ---
HPI - General Adult General Chief complaint: Fall Stated complaint: fall with rt hip pain Time Seen by Provider: 10/11/20 01:20 History of Present Illness HPI narrative: Patient 70-year-old female presents the emergency department with chief complaint of fall. Patient reports that she was seen in the emergency department approximately 1 week ago after she had a fall patient reports she is having difficulty ambulating just got a wheeled walker and and started ambulating approximately 2 to 3 days ago. Patient states is having extreme difficult time moving around and tonight was getting up to go to the bathroom and lost control of her wheel walker and rolled the walker over. The patient states that she has pain on her right side and the hip area and reports that whenever she tries to ambulate she has severe pain. Patient reports that she has been at her sister's house as she has been unable to care for self and her sister has been having extreme difficulty with helping her with her activities of daily living. The patient reports that she really needs additional help and may need placement for rehab afterwards. Related Data Home Medications Medication Instructions Recorded Confirmed aspirin [Adult Low Dose Aspirin] 81 mg PO HS 04/28/19 09/17/20 fluticasone propionate [Flonase 1 spray INTRANASAL PRN PRN 04/28/19 09/17/20 Allergy Relief] latanoprost 1 drp OPHTHALMIC (EYE) HS 04/28/19 09/17/20 metoprolol succinate 50 mg PO DAILY 04/28/19 09/17/20 ferrous sulfate 324 mg (65 mg 324 mg PO TID tablet 05/14/19 09/17/20 iron) tablet,delayed release diltiazem HCl 120 mg PO QPM 06/01/19 09/17/20 acetaminophen 500 mg tablet See Rx Instructions PO DAILY 08/22/19 09/17/20 tablet duloxetine 30 mg PO QPM 07/31/20 09/17/20 insulin aspart U-100 [Novolog 1 sliding scale dose SUBCUT 07/31/20 09/17/20 U-100 Insulin aspart] USEASDIRECTD Allergies Allergy/AdvReac Type Severity Reaction Status Date / Time SUZE Inhibitors Allergy Mild Cough Verified 10/11/20 01:09 amoxicillin Allergy Mild Rash Verified 10/11/20 01:09 cat dander Allergy Mild Swelling Verified 10/11/20 01:09 of the Eye clavulanic acid Allergy Mild RASH Verified 10/11/20 01:09 adhesive AdvReac Mild BLISTERS Verified 10/11/20 01:09 Review of Systems Review of Systems: Narrative: A 10 system review of systems was completed on the patient and is negative except for what is stated in the HPI. Nursing and ancillary documentation was reviewed. [facility] Past Medical History Medical History Acute kidney injury Anemia With history of blood transfusion. Aortic stenosis (~2017) Moderate aortic stenosis noted on echocardiogram in December 2017. Arthritis (~2009) Asthma Atrial fibrillation, chronic Bipolar 1 disorder Body mass index (BMI) 45.0-49.9, adult (12/19/18) Body mass index (BMI) of 50-59.9 in adult (02/24/18) Calcification of left breast on mammography CHF (congestive heart failure) (~2018) Chronic kidney disease, stage 3 (~05/2019) With history of temporary dialysis during lengthy hospitalization. CKD stage 3 due to type 2 diabetes mellitus Diabetic peripheral neuropathy Diastolic congestive heart failure (~2018) On echocardiogram in December 2017. Moderate pulmonary hypertension also noted at that time. 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 Obstructive sleep apnea (~2014) Uses a CPAP at nighttime. Paroxysmal atrial fibrillation (~2019) [employer]
[2020-10-11] MEDS: MORPHINE SULFATE (*CRX) 4 MG/ML INJ IV PUSH (05:33)
--- NOTE | 2020-10-11 06:20 | ADMGEN ---
This patient, Laurel Rucker, was admitted to Medical Room 249-01. Patient/family oriented to hospital policies and general routines including ID bracelet, bed and alarms, visiting hours, pain management, procedures, bathroom and other care routines, personal items, smoking policy, room service/diet, and visiting hours. Information on how to activate the Rapid Response Team has been discussed. Patient/Family are encouraged to report perceived risks to care and to ask questions if they do not understand what they are told or what they should do.
--- NOTE | 2020-10-11 07:48 | PM.IMHP ---
H&P: HPI History of Present Illness Date/Time: 10/11/20 07:48 Chief Complaint: Fall Narrative: This is a 70 year old woman with history of Afib on Xarelto, CHF, CKD, HTN, DM with neuropathy, who presented to the ER with complaints of fall. The patient came to the emergency room on 10/02/2020 after she had fallen at home. She had pain to her left side and the emergency room found no fracture in discharge her home. Since then she had been having increased trouble getting around secondary to pain to her left side. She went to go stay with her sister for the last few days to help her out. She woke up in the early head start director of 10/11/2020 to go to the bathroom. She used her walker and while trying to turn to sit on the toilet her walker tipped and she ended up falling into the bathtub injuring her right side. She denies any lightheadedness, dizziness, syncope. She states it was a mechanical fall. She does have pain to her right thigh and right foot, and having trouble bearing weight secondary to pain. She denies any head pain, neck pain, back pain. She does have healing bruises from her prior fall 1 week ago to her chest and left hip abdomen. She denies any urinary symptoms, fevers, chills, nausea, vomiting, abdominal pain, diarrhea, constipation, leg swelling, calf pain, or any other symptoms at this time. Code Status- Full Code POA- Karla Glaser PCP- Dr. Arlette Aldana Review of Systems Review of Systems: All systems reviewed & are unremarkable except as noted in HPI and below [facility] Past Medical History Medical History Acute kidney injury Anemia With history of blood transfusion. Aortic stenosis (~2017) Moderate aortic stenosis noted on echocardiogram in December 2017. Arthritis (~2009) Asthma Atrial fibrillation, chronic Bipolar 1 disorder Body mass index (BMI) 45.0-49.9, adult (12/19/18) Body mass index (BMI) of 50-59.9 in adult (02/24/18) Calcification of left breast on mammography CHF (congestive heart failure) (~2018) Chronic kidney disease, stage 3 (~05/2019) With history of temporary dialysis during lengthy hospitalization. CKD stage 3 due to type 2 diabetes mellitus Diabetic peripheral neuropathy Diastolic congestive heart failure (~2018) On echocardiogram in December 2017. Moderate pulmonary hypertension also noted at that time. 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 Obstructive sleep apnea (~2014) Uses a CPAP at nighttime. Paroxysmal atrial fibrillation (~2019) Peripheral neuropathy Positive colorectal cancer screening using Cologuard test Postmenopausal Pulmonary nodule Rhinosinusitis Shortness of breath Toe fracture lt great toe fx. Type 2 diabetes mellitus with diabetic nephropathy, with long-term current use of insulin Type 2 diabetes mellitus with diabetic neuropathy Type 2 diabetes mellitus with hyperglycemia, with long-term current use of insulin Unspecified asthma with status asthmaticus Uterine cancer Status post hysterectomy. Vitamin D deficiency Surgical History Surgical History Cataracts, bilateral History of bilateral knee replacement History of total bilateral knee replacement History of tracheostomy After lengthy hospitalization in 2014. Hx of bilateral cataract extraction Status post appendectomy Status post cataract extraction Status post cholecystectomy Status post hysterectomy For uterine cancer. Family Histo
[2020-10-11 08:19] LABS: Glucose Point of Care 321 (65-105)
[2020-10-11] MEDS: METOPROLOL SUCCINATE EXT REL 50 MG TABCR PO (08:36)
[2020-10-11] MEDS: ROSUVASTATIN 5 MG TABLET PO (08:36)
[2020-10-11] MEDS: hydrALAZINE HCL 25 MG TABLET PO (08:37)
[2020-10-11] MEDS: FERROUS SULFATE 324 MG TABLET PO ×3 (08:37→17:00)
[2020-10-11] MEDS: DULoxetine HCL 30 MG CAPSULE.DR PO (08:37)
[2020-10-11] MEDS: PANTOPRAZOLE SODIUM IV 40 MG VIAL IV PUSH ×2 (08:38→20:36)
[2020-10-11] MEDS: ACETAMINOPHEN 500 MG TABLET 1000 MG PO (08:38)
[2020-10-11] MEDS: INSULIN ASPART (*BKC) 100 UNITS/ML SUB-Q ×3 (08:43→17:02)
[2020-10-11] MEDS: ENOXAPARIN 60 MG/0.6 ML SYRINGE 50 MG SUB-Q ×2 (09:13→20:42)
[2020-10-11] MEDS: FUROSEMIDE 20 MG TABLET 60 MG PO (09:14)
[2020-10-11] MEDS: GABAPENTIN 300 MG CAPSULE 600 MG PO ×3 (09:14→21:13)
[2020-10-11] MEDS: ENOXAPARIN 80 MG/0.8 ML SYRINGE SUB-Q ×2 (09:14→20:34)
[2020-10-11] MEDS: INSULIN HUMAN NPH (*BKC) 100 UNITS/ML SUB-Q (09:58)
[2020-10-11 10:06] LABS: Glucose Point of Care 388 (65-105)
[2020-10-11] MEDS: ACETAMINOPHEN 500 MG TABLET PO ×2 (13:58→20:34)
[2020-10-11 14:18] LABS: Glucose Point of Care 320 (65-105)
[2020-10-11 17:02] LABS: Glucose Point of Care 333 (65-105)
[2020-10-11] MEDS: ASPIRIN 81 MG ENTERIC TABLET PO (20:34)
[2020-10-11] MEDS: DOCUSATE SODIUM 100 MG CAPSULE PO (20:34)
[2020-10-11] MEDS: LATANOPROST 0.005% OP SOLN 2.5 ML BTL 1 DROP EACH EYE (20:35)
[2020-10-11] MEDS: MONTELUKAST SODIUM 10 MG TABLET PO (20:36)
[2020-10-11] MEDS: INSULIN GLARGINE (*BKC) 100 UNITS/ML 10 UNITS SUB-Q (20:40)
[2020-10-11 21:25] LABS: Glucose Point of Care 351 (65-105)
[2020-10-12] MEDS: HYDROcodone/acetaminophen (*CRX) 7.5-325 MG TABLET 1 TAB PO ×3 (04:57→21:04)
[2020-10-12 05:13] VITALS: BP 104/70; PULSE 82; RESP 16; TEMP 36.8; O2SAT 95
[2020-10-12] MEDS: GABAPENTIN 300 MG CAPSULE 600 MG PO ×3 (05:36→21:05)
[2020-10-12 06:08] LABS: Basophils Absolute Auto 0.1 K/mm3 (0.0-0.1); Basophils Percent Auto 0.6 % (0.2-1.2); Eosinophils Absolute Auto 0.3 K/mm3 (0-0.3); Eosinophils Percent Auto 3.9 % (0-4.4); Hematocrit 29.3 % (37.0-47.0); Hemoglobin 9.7 g/dL (12.0-15.0); Immature Granulocyte Absolute 0.04 K/mm3 (0.00-0.031); Immature Granulocyte Percent A 0.5 % (0-0.5); Lymphocytes Absolute Auto 1.19 K/mm3 (0.9-3.2); Lymphocytes Percent Auto 14.2 % (18.3-44.2); Mean Corpuscular HGB Conc 33.1 g/dl (32-36); Mean Corpuscular Hemoglobin 31.9 pg (26-34); Mean Corpuscular Volume 96.4 fl (80-100); Mean Platelet Volume 10.3 fl (7.4-10.4); Monocytes Absolute Auto 0.6 K/mm3 (0.1-0.6); Monocytes Percent Auto 7.4 % (2.6-8.5); Neutrophils Absolute Auto 6.2 K/mm3 (1.3-6.7); Neutrophils Percent Auto 73.4 % (45.5-73.1); Platelet Count Result 192 k/mm3 (150-375); Red Blood Count 3.04 M/mm3 (4.2-5.4); Red Cell Distribution Width 13.2 % (11.5-14.5); White Blood Count 8.4 K/mm3 (4.5-10.0)
[2020-10-12 06:13] LABS: Hemoglobin A1C 7.9 % (<5.7)
[2020-10-12 06:20] LABS: Anion Gap 5 mmol/L (8-16); Blood Urea Nitrogen 35 mg/dL (7-17); Carbon Dioxide 35 mmol/L (22-30); Chloride 96 mmol/L (98-107); Estimated CRCL calculation 44 ml/min; Estimated Glomerular Filt Rate 34; Glucose 280 mg/dL (65-105); Potassium 3.3 mmol/L (3.4-5.0); Sodium 136 mmol/L (137-145)
[2020-10-12] MEDS: INSULIN ASPART (*BKC) 100 UNITS/ML SUB-Q ×3 (07:32→16:53)
[2020-10-12 08:12] LABS: Glucose Point of Care 285 (65-105)
[2020-10-12] MEDS: polyethylene glycoL 3350 17 GM POWD.PACK PO (08:13)
[2020-10-12] MEDS: DOCUSATE SODIUM 100 MG CAPSULE PO ×2 (08:14→20:49)
[2020-10-12] MEDS: DULoxetine HCL 30 MG CAPSULE.DR PO (08:14)
[2020-10-12] MEDS: ROSUVASTATIN 5 MG TABLET PO (08:14)
[2020-10-12] MEDS: ACETAMINOPHEN 500 MG TABLET 1000 MG PO (08:14)
[2020-10-12 08:15] VITALS: PULSE 82
[2020-10-12] MEDS: RIVAROXABAN 15 MG TABLET PO (08:15)
[2020-10-12] MEDS: METOPROLOL SUCCINATE EXT REL 50 MG TABCR PO (08:15)
[2020-10-12] MEDS: FERROUS SULFATE 324 MG TABLET PO ×3 (08:15→16:52)
[2020-10-12] MEDS: PANTOPRAZOLE SODIUM IV 40 MG VIAL IV PUSH ×2 (08:16→20:50)
[2020-10-12 10:01] LABS: Hematocrit 29.1 % (37.0-47.0); Hemoglobin 9.8 g/dL (12.0-15.0)
[2020-10-12 10:16] LABS: Magnesium 1.9 mg/dL (1.6-2.3)
[2020-10-12] MEDS: POTASSIUM CHLORIDE 20 MEQ TABLET 40 MEQ PO (10:30)
[2020-10-12] MEDS: LACTATED RINGERS 500 ML 100 ML IV CONT (10:31)
[2020-10-12 11:27] LABS: Iron 42 ug/dL (37-170)
[2020-10-12 11:32] LABS: Transferrin 169 mg/dL (206-381)
[2020-10-12 11:37] LABS: Percent Iron Saturation 18 % (20-50)
[2020-10-12 11:43] LABS: Glucose Point of Care 338 (65-105)
[2020-10-12 12:32] LABS: Folic Acid 6.2 ng/mL (2.76->20)
[2020-10-12] MEDS: ACETAMINOPHEN 500 MG TABLET PO ×2 (13:05→20:50)
[2020-10-12 14:00] VITALS: BP 110/57; PULSE 60; RESP 16; TEMP 36.3; O2SAT 97
--- NOTE | 2020-10-12 14:47 | PM.IMPN ---
Progress Note: A&P Assessment and Plan (1) Acute kidney injury superimposed on chronic kidney disease: Code(s): N17.9 - Acute kidney failure, unspecified; N18.9 - Chronic kidney disease, unspecified Status: Acute Assessment and Plan: Acute on chronic CKD, Creatinine 1.0 on arrival, increased to 1.5 today most likely due to restarting her home diuretics and causing some dehydration and her blood pressure to drop. She was asymptomatic with this. Labs recheck this morning showed the elevation in the creatinine so she is started on IV fluids 500 cc of LR, held diuretics at this time. Will continue monitoring fluid status and prevent over hydration. (2) Acute anemia: Code(s): D64.9 - Anemia, unspecified Status: Acute Assessment and Plan: Could be due to increase in creatinine causing worsening anemia, verses hematoma of her right thigh due to increased pain/swelling from restarting anticoagulation with a recent trauma from fall vs GI bleed. Ordering CT right femur to rule hematoma of the thigh Will check iron panel/vitamin B12/folic acid Will check stool occult blood Patient is on PPI twice daily at this time Anticoagulation has been held SCDs have been ordered. Continue monitoring. (3) Acute UTI: Code(s): N39.0 - Urinary tract infection, site not specified Status: Acute Assessment and Plan: Urine culture came back growing E coli which is sensitive to IV ceftriaxone. Will continue on this medication until discharge, then make adjustments to p.o. regimen. Denies any urinary symptoms Continue monitoring (4) Frequent falls: Code(s): R29.6 - Repeated falls Status: Acute Assessment and Plan: Patient has had 2 falls in the last 10 days. Falls could be secondary to acute urinary tract infection. She is having difficulty getting around and walking at this time due to pain. Physical and occupational therapy have been ordered at this time. Will work on discharge planning in the patient may need SNF. Continue monitoring. (5) Atrial fibrillation: Qualifiers: Atrial fibrillation type: unspecified Qualified Code(s): I48.91 - Unspecified atrial fibrillation Code(s): I48.91 - Unspecified atrial fibrillation Status: Chronic Assessment and Plan: Continue on anticoagulation with Xarelto. Rate controlled at this time. Going to hold Xarelto due to drop in her H&H. Will start once stable. 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 Increased glargine 14 units HS. Increased to High Dose sliding scale insulin. Hemoglobin A1c 7.9% Continue monitoring glucose. Sliding scale insulin. Hypoglycemia instructions. Time Spent With Patient Time with patient: 25 - 35 minutes Subjective Date/time seen: 10/12/20 14:47 Interval history: Date of service 10/12/2020: The patient reports increased pain/swelling to her right lateral thigh, which is tender to palpation and with walking. She is having difficulty getting up out of bed on her own, in using lots of assistance from PT/OT. She has been constipated for 4 days, would like something for this. She denies any fevers, chills, chest pain, shortness of breath, cough, nausea, vomiting, abdominal pain, diarrhea, samir
[2020-10-12] MEDS: BISACODYL 10 MG SUPPOSITORY RECTAL (14:53)
[2020-10-12 15:10] LABS: Hematocrit 26.7 % (37.0-47.0); Hemoglobin 8.8 g/dL (12.0-15.0)
[2020-10-12 16:51] LABS: Glucose Point of Care 327 (65-105)
[2020-10-12 17:09] VITALS: BP 127/61; PULSE 90
[2020-10-12] MEDS: ASPIRIN 81 MG ENTERIC TABLET PO (20:49)
[2020-10-12] MEDS: MONTELUKAST SODIUM 10 MG TABLET PO (20:49)
[2020-10-12] MEDS: LATANOPROST 0.005% OP SOLN 2.5 ML BTL 1 DROP EACH EYE (20:50)
[2020-10-12 21:02] LABS: Glucose Point of Care 382 (65-105)
[2020-10-12] MEDS: INSULIN GLARGINE (*BKC) 100 UNITS/ML 14 UNITS SUB-Q (21:04)
[2020-10-12 21:41] VITALS: BP 112/64; PULSE 75; RESP 16; TEMP 36.1; O2SAT 100
[2020-10-13 03:51] LABS: IFOB Positive Control Positive; Immunochemical Fecal Occult Bl Negative (N)
[2020-10-13 05:25] VITALS: BP 113/64; PULSE 88; RESP 16; TEMP 36.1; O2SAT 93
[2020-10-13 05:46] LABS: Basophils Percent Auto 0.5 % (0.2-1.2); Eosinophils Absolute Auto 0.3 K/mm3 (0-0.3); Eosinophils Percent Auto 3.7 % (0-4.4); Hematocrit 25.6 % (37.0-47.0); Hemoglobin 8.4 g/dL (12.0-15.0); Immature Granulocyte Absolute 0.08 K/mm3 (0.00-0.031); Lymphocytes Absolute Auto 1.19 K/mm3 (0.9-3.2); Lymphocytes Percent Auto 15.2 % (18.3-44.2); Mean Corpuscular HGB Conc 32.8 g/dl (32-36); Mean Corpuscular Hemoglobin 31.5 pg (26-34); Mean Corpuscular Volume 95.9 fl (80-100); Mean Platelet Volume 10.3 fl (7.4-10.4); Monocytes Absolute Auto 0.8 K/mm3 (0.1-0.6); Monocytes Percent Auto 9.9 % (2.6-8.5); Neutrophils Absolute Auto 5.5 K/mm3 (1.3-6.7); Neutrophils Percent Auto 69.7 % (45.5-73.1); Platelet Count Result 176 k/mm3 (150-375); Red Blood Count 2.67 M/mm3 (4.2-5.4); Red Cell Distribution Width 13.2 % (11.5-14.5); White Blood Count 7.8 K/mm3 (4.5-10.0)
[2020-10-13] MEDS: GABAPENTIN 300 MG CAPSULE 600 MG PO ×3 (06:13→21:00)
[2020-10-13 06:17] LABS: Anion Gap 3 mmol/L (8-16); Blood Urea Nitrogen 36 mg/dL (7-17); Calcium 8.9 mg/dL (8.4-10.2); Carbon Dioxide 34 mmol/L (22-30); Chloride 97 mmol/L (98-107); Estimated CRCL calculation 50 ml/min; Estimated Glomerular Filt Rate 40; Glucose 286 mg/dL (65-105); Potassium 3.2 mmol/L (3.4-5.0); Sodium 134 mmol/L (137-145)
[2020-10-13] MEDS: INSULIN ASPART (*BKC) 100 UNITS/ML SUB-Q ×3 (08:24→17:41)
[2020-10-13 08:30] VITALS: PULSE 60
[2020-10-13] MEDS: ACETAMINOPHEN 500 MG TABLET 1000 MG PO (08:30)
[2020-10-13] MEDS: ROSUVASTATIN 5 MG TABLET PO (08:30)
[2020-10-13] MEDS: DOCUSATE SODIUM 100 MG CAPSULE PO ×2 (08:30→20:56)
[2020-10-13] MEDS: DULoxetine HCL 30 MG CAPSULE.DR PO (08:30)
[2020-10-13] MEDS: METOPROLOL SUCCINATE EXT REL 50 MG TABCR PO (08:30)
[2020-10-13] MEDS: FERROUS SULFATE 324 MG TABLET PO ×3 (08:31→17:45)
[2020-10-13] MEDS: PANTOPRAZOLE SODIUM IV 40 MG VIAL IV PUSH ×2 (08:32→20:56)
[2020-10-13] MEDS: POTASSIUM CHLORIDE 20 MEQ TABLET 40 MEQ PO (10:27)
[2020-10-13 12:09] LABS: Glucose Point of Care 364 (65-105)
[2020-10-13 13:09] LABS: Glucose Point of Care 286 (65-105)
--- NOTE | 2020-10-13 13:27 | PM.IMPN ---
Progress Note: A&P Assessment and Plan (1) Intramuscular hematoma: Code(s): T14.8XXA - Other injury of unspecified body region, initial encounter Status: Acute Assessment and Plan: Patient H&H dropped From arrival 10/11/2020-10/12/2020 almost 3 points. Patient had increased pain to her right thigh so a CT was ordered showing right vastus intermedius intramuscular hematoma. Patient's anticoagulation has been held at this time, Xarelto Monitoring H&H which has been stable today, 8.11/21 Elmer wrap has been applied her on right-sided try an stop the bleeding Consulted Dr. Peña to see in the hospital for further evaluation, monitoring and ensure she does not develop compartment syndrome. Appreciate input. Put in Neurovascular checks Qshift to monitor for any compartment syndrome symptoms Patient feeling well at this time, no numbness, tingling, weakness or increased uncontrolled pain of her right thigh. Continue monitoring H&H and once stable can be discharged to follow-up with orthopedic surgery. (2) Acute kidney injury superimposed on chronic kidney disease: Code(s): N17.9 - Acute kidney failure, unspecified; N18.9 - Chronic kidney disease, unspecified Status: Acute Assessment and Plan: Acute on chronic CKD, Creatinine 1.0 on arrival, increased to 1.5 10/12/20 most likely due to restarting her home diuretics and causing some dehydration and her blood pressure to drop. She was given IV fluids 500 cc of LR 10/12/20 Cr improved to 1.30/36 today. Will give some more IV fluids at this time, 500 cc/hr. Continue to hold diuretics at this time. Will continue monitoring fluid status and prevent over hydration. (3) Acute anemia: Code(s): D64.9 - Anemia, unspecified Status: Acute Assessment and Plan: Could be due to increase in creatinine causing worsening anemia, verses hematoma of her right thigh due to increased pain/swelling from restarting anticoagulation with a recent trauma from fall vs GI bleed. CT showing intramuscular hematoma of right thigh Iron panel showing anemia of chronic disease, % sat 18. Vitamin B12/folic acid normal Stool occult negative. Patient is on PPI twice daily at this time Anticoagulation has been held SCDs have been ordered. Ortho recommends staying off Anticoagulation for at least 1 week. Continue monitoring. (4) Acute UTI: Code(s): N39.0 - Urinary tract infection, site not specified Status: Acute Assessment and Plan: Urine culture came back growing E coli which is sensitive to IV ceftriaxone. Will continue on this medication until discharge, then make adjustments to p.o. regimen. Denies any urinary symptoms Continue monitoring (5) Frequent falls: Code(s): R29.6 - Repeated falls Status: Acute Assessment and Plan: Patient has had 2 falls in the last 10 days. Falls could be secondary to acute urinary tract infection. She is having difficulty getting around and walking at this time due to pain. Physical and occupational therapy have been ordered at this time. Will work on discharge planning in the patient may need SNF. Continue monitoring. (6) Atrial fibrillation: Qualifiers: Atrial fibrillation type: unspecified Qualified Code(s): I48.91 - Unspecified atrial fibrillation Code(s): I48.91 - Unspecified atrial fibrillation Status: Chronic Assessment and Plan: Continue on anticoagulation with Xarelto. Rate controlled at this time. Going to hold Xarelto due to drop in her H&H. Will start once stable. (7) Type 2 diabetes mellitus with diabetic neuropathy: Qualifiers: Diabetes susana
[2020-10-13 13:36] VITALS: O2SAT 97
[2020-10-13 14:00] VITALS: BP 115/72; PULSE 90; RESP 16; TEMP 36.2; O2SAT 97
[2020-10-13] MEDS: ACETAMINOPHEN 500 MG TABLET PO ×2 (14:03→20:56)
[2020-10-13 14:23] LABS: Hematocrit 25.7 % (37.0-47.0); Hemoglobin 8.6 g/dL (12.0-15.0)
[2020-10-13] MEDS: LACTATED RINGERS 500 ML 100 ML IV CONT (15:17)
[2020-10-13 17:20] LABS: Glucose Point of Care 325 (65-105)
[2020-10-13] MEDS: MONTELUKAST SODIUM 10 MG TABLET PO (20:56)
[2020-10-13] MEDS: LATANOPROST 0.005% OP SOLN 2.5 ML BTL 1 DROP EACH EYE (20:56)
[2020-10-13] MEDS: INSULIN GLARGINE (*BKC) 100 UNITS/ML 14 UNITS SUB-Q (21:01)
[2020-10-13 21:11] LABS: Glucose Point of Care 379 (65-105)
[2020-10-13 22:00] VITALS: BP 142/65; PULSE 80; RESP 18; TEMP 36.6; O2SAT 96
[2020-10-13 22:23] LABS: Hematocrit 22.2 % (37.0-47.0); Hemoglobin 7.5 g/dL (12.0-15.0)
[2020-10-14] MEDS: HYDROcodone/acetaminophen (*CRX) 7.5-325 MG TABLET 1 TAB PO ×2 (04:35→21:44)
[2020-10-14] MEDS: GABAPENTIN 300 MG CAPSULE 600 MG PO ×3 (05:33→21:14)
[2020-10-14 05:44] LABS: Hematocrit 22.2 % (37.0-47.0); Hemoglobin 7.4 g/dL (12.0-15.0)
[2020-10-14 06:00] VITALS: BP 127/62; PULSE 96; RESP 18; TEMP 37.1; O2SAT 94
[2020-10-14 06:04] LABS: Anion Gap 4 mmol/L (8-16); Blood Urea Nitrogen 30 mg/dL (7-17); Calcium 8.7 mg/dL (8.4-10.2); Carbon Dioxide 31 mmol/L (22-30); Chloride 98 mmol/L (98-107); Estimated CRCL calculation 59 ml/min; Estimated Glomerular Filt Rate 49; Glucose 287 mg/dL (65-105); Sodium 133 mmol/L (137-145)
[2020-10-14 07:07] LABS: Potassium 3.7 mmol/L (3.4-5.0)
[2020-10-14 07:49] LABS: Glucose Point of Care 278 (65-105)
[2020-10-14] MEDS: INSULIN ASPART (*BKC) 100 UNITS/ML SUB-Q ×3 (07:50→17:22)
[2020-10-14] MEDS: DOCUSATE SODIUM 100 MG CAPSULE PO ×2 (07:52→21:14)
[2020-10-14] MEDS: DULoxetine HCL 30 MG CAPSULE.DR PO (07:52)
[2020-10-14] MEDS: PANTOPRAZOLE SODIUM IV 40 MG VIAL IV PUSH ×2 (07:53→21:14)
[2020-10-14] MEDS: ACETAMINOPHEN 500 MG TABLET 1000 MG PO (07:53)
[2020-10-14] MEDS: ROSUVASTATIN 5 MG TABLET PO (07:53)
[2020-10-14] MEDS: FERROUS SULFATE 324 MG TABLET PO ×3 (07:53→16:57)
[2020-10-14] MEDS: METOPROLOL SUCCINATE EXT REL 50 MG TABCR PO (09:51)
[2020-10-14 09:53] VITALS: BP 113/60; PULSE 95
[2020-10-14 12:07] LABS: Glucose Point of Care 300 (65-105)
[2020-10-14 13:15] LABS: Hematocrit 23.5 % (37.0-47.0); Hemoglobin 7.8 g/dL (12.0-15.0)
[2020-10-14 14:00] VITALS: BP 116/63; PULSE 78; RESP 18; TEMP 36.5; O2SAT 97
[2020-10-14] MEDS: ACETAMINOPHEN 500 MG TABLET PO ×2 (14:38→21:14)
--- NOTE | 2020-10-14 15:58 | P.PNIM_ITS ---
Progress Note: A&P Assessment and Plan (1) Acute anemia: Code(s): D64.9 - Anemia, unspecified Status: Acute Assessment and Plan: Hemoglobin was normal at presentation and dropped by 3 points following admission. This is felt to be secondary to intramuscular hematoma. Occult blood test negative. Iron panel reviewed which demonstrated anemia of chronic disease. Continued decline in hemoglobin today down to 7.4. * Monitor H&H closely. Continue to monitor q8h. Transfuse as needed with hemoglobin threshold <7.0 * Home Xarelto has been held. Will continue to hold for at least 1 week per ortho recommendations * Hopeful discharge to SNF tomorrow if H&H improves/remains stable (2) Intramuscular hematoma: Code(s): T14.8XXA - Other injury of unspecified body region, initial encounter Status: Acute Assessment and Plan: Patient had increased pain to her right thigh after suffering a fall so a CT was ordered showing right vastus intermedius intramuscular hematoma. * Continue Elmer wrap to right thigh for compression * Orthopedic surgery has been consulted. Appreciate input. * Continue neurovascular checks to ensure he does not develop compartment syndrome or any other concerning symptoms * Continue monitoring H&H as above (3) Acute kidney injury superimposed on chronic kidney disease: Code(s): N17.9 - Acute kidney failure, unspecified; N18.9 - Chronic kidney disease, unspecified Status: Acute Assessment and Plan: Acute on chronic CKD.Creatinine 1.0 on arrival and peaked at 1.5. Suspect pre renal etiology likely due to dehydration and diuretics. Renal function has improved. Creatinine 1.1 today. * IV fluids discontinued given improvement. She has been adequately rehydrated and is tolerating p.o. intake * Continue to hold diuretics at this time. * Monitor renal function closely and volume status (4) Acute UTI: Code(s): N39.0 - Urinary tract infection, site not specified Status: Acute Assessment and Plan: Urine culture with growth of 10,000-49,000 CFU E. Coli. She is afebrile. * Continue IV Rocephin (5) Frequent falls: Code(s): R29.6 - Repeated falls Status: Acute Assessment and Plan: Patient has had 2 falls in the last 10 days. Falls could be secondary to acute urinary tract infection vs overall physical deconditioning. She is having difficulty getting around and walking at this time due to pain. * Appreciate PT/OT eval * Planning for SNF placement * Fall precautions in place (6) Atrial fibrillation: Qualifiers: Atrial fibrillation type: unspecified Qualified Code(s): I48.91 - Unspecified atrial fibrillation Code(s): I48.91 - Unspecified atrial fibrillation Status: Chronic Assessment and Plan: Rate is controlled. 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 Glucose has been elevated in the 200-300s. * Accu-Cheks, high-dose sliding scale insulin, and hypoglycemic protocol * Increase Lantus to 18 units * Monitor glucose trends Subjective
--- NOTE | 2020-10-14 15:58 | PM.IMPN ---
Progress Note: A&P Assessment and Plan (1) Acute anemia: Code(s): D64.9 - Anemia, unspecified Status: Acute Assessment and Plan: Hemoglobin was normal at presentation and dropped by 3 points following admission. This is felt to be secondary to intramuscular hematoma. Occult blood test negative. Iron panel reviewed which demonstrated anemia of chronic disease. Continued decline in hemoglobin today down to 7.4. Monitor H&H closely. Continue to monitor q8h. Transfuse as needed with hemoglobin threshold <7.0 Home Xarelto has been held. Will continue to hold for at least 1 week per ortho recommendations Hopeful discharge to SNF tomorrow if H&H improves/remains stable (2) Intramuscular hematoma: Code(s): T14.8XXA - Other injury of unspecified body region, initial encounter Status: Acute Assessment and Plan: Patient had increased pain to her right thigh after suffering a fall so a CT was ordered showing right vastus intermedius intramuscular hematoma. Continue Elmer wrap to right thigh for compression Orthopedic surgery has been consulted. Appreciate input. Continue neurovascular checks to ensure he does not develop compartment syndrome or any other concerning symptoms Continue monitoring H&H as above (3) Acute kidney injury superimposed on chronic kidney disease: Code(s): N17.9 - Acute kidney failure, unspecified; N18.9 - Chronic kidney disease, unspecified Status: Acute Assessment and Plan: Acute on chronic CKD.Creatinine 1.0 on arrival and peaked at 1.5. Suspect prerenal etiology likely due to dehydration and diuretics. Renal function has improved. Creatinine 1.1 today. IV fluids discontinued given improvement. She has been adequately rehydrated and is tolerating p.o. intake Continue to hold diuretics at this time. Monitor renal function closely and volume status (4) Acute UTI: Code(s): N39.0 - Urinary tract infection, site not specified Status: Acute Assessment and Plan: Urine culture with growth of 10,000-49,000 CFU E. Coli. She is afebrile. Continue IV Rocephin (5) Frequent falls: Code(s): R29.6 - Repeated falls Status: Acute Assessment and Plan: Patient has had 2 falls in the last 10 days. Falls could be secondary to acute urinary tract infection vs overall physical deconditioning. She is having difficulty getting around and walking at this time due to pain. Appreciate PT/OT eval Planning for SNF placement Fall precautions in place (6) Atrial fibrillation: Qualifiers: Atrial fibrillation type: unspecified Qualified Code(s): I48.91 - Unspecified atrial fibrillation Code(s): I48.91 - Unspecified atrial fibrillation Status: Chronic Assessment and Plan: Rate is controlled. Xarelto on hold as above Continue metoprolol (7) Type 2 diabetes mellitus with diabetic neuropathy: Qualifiers: Diabetes mellitus alf insulin use: with alf use Qualified Code(s): E11.40 - Type 2 diabetes mellitus with diabetic neuropathy, unspecified; Z79.4 - snf (current) use of insulin Code(s): E11.40 - Type 2 diabetes mellitus with diabetic neuropathy, unspecified Status: Chronic Assessment and Plan: A1c is 7.9. Glucose has been elevated in the 200-300s. Accu-Cheks, high-dose sliding scale insulin, and hypoglycemic protocol Increase Lantus to 18 units Monitor glucose trends Subjective Date/time seen: 10/14/20 15:58 Interval history: Date of service: 10/14/2020 Laurel Rucker is a 70-year-old female with a history of aortic stenosis, chronic atrial fibrillation, CHF, CKD, diabetes, hypertension, and multiple other comorbidities who is seen in follow-up for intramuscular hematoma of left thigh with associated anemia. She feels very tired today. She rates her leg pain as 7/10 with activity. This time, she is rest
--- NOTE | 2020-10-14 16:00 | PM.CNOR ---
Assessment and Plan Assessment and plan (1) Intramuscular hematoma: Code(s): T14.8XXA - Other injury of unspecified body region, initial encounter Status: Acute Assessment and Plan: CT scan of the right hip reveals an intramuscular hematoma. Discussed condition, nature, etiology and course of natural history. Conservative and operative treatment options reviewed as well as the risks and benefits of each. Patient reports improvement in pain over the last 24 hours. Most recent hemoglobin is 7.8. Xarelto currently on hold. Patient does have tenderness over the lateral aspect of the right hip with palpation and notable swelling. Ecchymosis noted as well over the lateral aspect of the hip and over the right knee. No pain with internal/external rotation of the right hip. No pain with flexion/extension of the right knee. Pain mainly with palpation at this time. She reports improvement pain with use of ice. Recommended continuation of conservative treatment at this time. Recommend heat application. WBAT RLE. ELMER wrap removed as it was not covering her entire thigh and mainly causing swelling above the ELMER wrap. Continue to monitor hemaglobin. NV checks. We will continue to monitor for compartment syndrome in the interim. History of Present Illness HPI Consult date: 10/14/20 Requesting physician: Domonique Fox PA-C Consult reason: other ( Right thigh hematoma) Chief complaint: Frequent falls, UTI Narrative: 70-year-old female admitted August [facility] status post fall into the bathtub at her twin sister's house. She reports multiple falls as of late. She does have a history of right total knee arthroplasty. She reports that she fell onto the right hip area and has increased pain since that time. Radiographs of the hip and femur after the time of injury in the emergency room reveal no evidence of fracture, dislocation or acute abnormalities. CT scan of the right hip and femur revealed an intramuscular hematoma measuring about 1.8 x 3.0 cm greatest axial dimensions by 7.7 cm in length. No acute fractures identified. Orthopedic consult requested by the hospitalist service for evaluation and concern for compartment syndrome. Patient reports improvement in pain over the last day. Her hemoglobin is stable at 7.8 today. She does report pain over the lateral aspect of the right thigh and increased swelling above the applied Elmer wrap. She denies right knee pain. She denies pain with internal and external rotation of the right hip. Mild ecchymosis noted over the lateral aspect of the thigh and right knee. Review of Systems Review of Systems: All systems reviewed & are unremarkable except as noted in HPI and below [facility] Past Medical History Medical History Acute kidney injury Anemia With history of blood transfusion. Aortic stenosis (~2017) Moderate aortic stenosis noted on echocardiogram in December 2017. Arthritis (~2009) Asthma Atrial fibrillation, chronic Bipolar 1 disorder Body mass index (BMI) 45.0-49.9, adult (12/19/18) Body mass index (BMI) of 50-59.9 in adult (02/24/18) Calcification of left breast on mammography CHF (congestive heart failure) (~2018) Chronic kidney disease, stage 3 (~05/2019) With history of temporary dialysis during lengthy hospitalization. CKD stage 3 due to type 2 diabetes mellitus Diabetic peripheral neuropathy Diastolic congestive heart failure (~2018) On echocardiogram in December 2017. Moderate pulmonary hypertension also noted at that time. 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
[2020-10-14 17:19] LABS: Glucose Point of Care 313 mg/dl (65-105)
[2020-10-14] MEDS: MONTELUKAST SODIUM 10 MG TABLET PO (21:14)
[2020-10-14] MEDS: LATANOPROST 0.005% OP SOLN 2.5 ML BTL 1 DROP EACH EYE (21:14)
[2020-10-14] MEDS: INSULIN GLARGINE (*BKC) 100 UNITS/ML 18 UNITS SUB-Q (21:47)
[2020-10-14 21:52] LABS: Glucose Point of Care 352 mg/dl (65-105)
[2020-10-14 22:00] VITALS: BP 115/68; PULSE 74; RESP 16; TEMP 36.4; O2SAT 96
[2020-10-14 22:44] LABS: Hematocrit 22.5 % (37.0-47.0); Hemoglobin 7.3 g/dL (12.0-15.0)
[2020-10-15 05:22] VITALS: BP 130/72; PULSE 60; RESP 18; TEMP 36.5; O2SAT 94
[2020-10-15] MEDS: GABAPENTIN 300 MG CAPSULE 600 MG PO ×2 (05:57→13:20)
[2020-10-15 09:10] LABS: Hematocrit 22.6 % (37.0-47.0); Hemoglobin 7.4 g/dL (12.0-15.0)
[2020-10-15 09:18] LABS: Glucose Point of Care 285 mg/dl (65-105)
[2020-10-15 09:23] LABS: Anion Gap 4 mmol/L (8-16); Blood Urea Nitrogen 33 mg/dL (7-17); Calcium 8.5 mg/dL (8.4-10.2); Carbon Dioxide 34 mmol/L (22-30); Chloride 96 mmol/L (98-107); Estimated CRCL calculation 54 ml/min; Estimated Glomerular Filt Rate 44; Glucose 286 mg/dL (65-105); Potassium 3.7 mmol/L (3.4-5.0); Sodium 134 mmol/L (137-145)
[2020-10-15] MEDS: ACETAMINOPHEN 500 MG TABLET 1000 MG PO (09:26)
[2020-10-15] MEDS: ROSUVASTATIN 5 MG TABLET PO (09:27)
[2020-10-15] MEDS: FERROUS SULFATE 324 MG TABLET PO ×2 (09:27→12:01)
[2020-10-15] MEDS: METOPROLOL SUCCINATE EXT REL 50 MG TABCR PO (09:27)
[2020-10-15] MEDS: DOCUSATE SODIUM 100 MG CAPSULE PO (09:28)
[2020-10-15] MEDS: INSULIN ASPART (*BKC) 100 UNITS/ML SUB-Q ×2 (09:28→12:01)
[2020-10-15] MEDS: PANTOPRAZOLE SODIUM IV 40 MG VIAL IV PUSH (09:28)
[2020-10-15] MEDS: DULoxetine HCL 30 MG CAPSULE.DR PO (09:28)
[2020-10-15] MEDS: polyethylene glycoL 3350 17 GM POWD.PACK PO (11:51)
[2020-10-15 12:31] LABS: Glucose Point of Care 378 mg/dl (65-105)
[2020-10-15] MEDS: ACETAMINOPHEN 500 MG TABLET PO (13:20)
[2020-10-15] MEDS: HYDROcodone/acetaminophen (*CRX) 7.5-325 MG TABLET 1 TAB PO (13:22)
[2020-10-15 14:00] VITALS: BP 106/61; PULSE 84; RESP 18; TEMP 36.7; O2SAT 96
[2020-10-15 14:48] LABS: Hematocrit 24.2 % (37.0-47.0)
--- NOTE | 2020-10-15 14:59 | PM.PNORT ---
Progress Note: A&P Additional Plan s/p right thigh hematoma improving. i think there is very little risk of compartment syndrome or of re bleeding. she may continue with warm compress and she may resume her anticoagulation for her afib and she will f/u as needed if she has any increase in pain. Time Spent With Patient Time with patient: 15 - 25 minutes Subjective Subjective Date/Time Seen: 10/15/20 14:59 patient is doing well with improved pain. her hgb is increasing gradually. she is improving as far as fucntion Exam Extrem: Other: right thigh is for the most part soft and non tender. she has some increased tenderness in the lateral compartment. she is able to flex and extend the knee with minimal pain. she has no sign of increased compartment pressures or compartment syndrome. calf is soft non tender with neg homans sign, and otherwise the extremity is nv intact. Objective Data Vital Signs Vital Signs: Vital Signs - 24 hr 10/14/20 22:00 10/15/20 05:22 10/15/20 14:00 Temperature 36.4 C 36.5 C 36.7 C Pulse Rate 74 60 84 Respiratory Rate 16 18 18 Blood Pressure 115/68 130/72 106/61 Pulse Oximetry 96 94 96 Intake/Output Intake/Output: Intake & Output 10/12/20 10/13/20 10/14/20 10/15/20 23:59 23:59 23:59 23:59 Intake Total 2500 1530 1830 1220 Output Total 1100 3800 1000 Balance 1400 -2270 830 1220 Meds/Results Medications: Active Medications Generic Name Dose Route Start Last Admin Trade Name Freq PRN Reason Stop Dose Admin Acetaminophen 500 mg 10/11/20 14:00 10/15/20 13:20 Acetaminophen 500 Mg Tablet PO 500 mg 1400,2100 KARAN Administration Acetaminophen 1,000 mg 10/11/20 09:00 10/15/20 09:26 Acetaminophen 500 Mg Tablet PO 1,000 mg DAILY KARAN Administration Hydrocodone Bitart/Acetaminophen 1 tab 10/11/20 07:50 Hydrocodone/Acetaminophen (*Crx) 5-325 Mg Tablet PO Q4H PRN Pain Rated 4-6 Hydrocodone Bitart/Acetaminophen 1 tab 10/11/20 07:50 10/15/20 13:22 Hydrocodone/Acetaminophen (*Crx) 7.5-325 Mg Tablet PO 1 tab Q4H PRN Administration Pain Rated 7-10 Albuterol 2 puff 10/11/20 07:33 Albuterol Sulfate (*Sp) Aerosol 1 Puff INHALATION Q4H PRN Shortness Of Breath Aspirin 81 mg 10/11/20 21:00 10/12/20 20:49 Aspirin 81 Mg Enteric Tablet PO 81 mg HS KARAN Administration Dextrose 12.5 gm 10/12/20 14:58 Dextrose 50% 25 Gm/50 Ml Syringe IV PUSH PRN PRN Hypoglycemia Protocol Diltiazem HCl 120 mg 10/11/20 18:00 10/14/20 16:57 Diltiazem Hcl Cd 120 Mg Cap.Sa.24h PO 120 mg QPM KARAN Administration Docusate Sodium 100 mg 10/11/20 21:00 10/15/20 09:28 Docusate Sodium 100 Mg Capsule PO 100 mg Q12HR KARAN Administration Duloxetine HCl 30 mg 10/11/20 09:00 10/15/20 09:28 Duloxetine Hcl 30 Mg Capsule.Dr PO 30 mg DAILY KARAN Administration Ferrous Sulfate 324 mg 10/11/20 08:00 10/15/20 12:01 Ferrous Sulfate 324 Mg Tablet PO 324 mg TIDWM KARAN Administration Fluticasone Propionate 1 spray 10/11/20 07:33 Fluticasone Propionate 0.05% Na Spr 16 Gm Btl (*Bkc) NASAL PRN PRN Nasal Congestion Furosemide 60 mg 10/11/20 09:00 10/11/20 09:14 Furosemide 20 Mg Tablet PO 60 mg QAM KARAN Administration Gabapentin 600 mg 10/11/20 09:00 10/15/20 13:20 Gabapentin 300 Mg Capsule PO 600 mg Q8HR KARAN Administration Glucagon 1 mg 10/12/20 14:58 Glucagon For Inj 1 Mg Vial IM PRN PRN Hypoglycemia Protocol Glucose 15 gm 10/12/20 14:58 Glucose Oral Gel 15 Gm Of Glucse In 37.5 Gm Tube PO PRN PRN Hypoglycemia Protocol Hydralazine HCl 25 mg 10/11/20 17:00 Hydralazine Hcl 25 Mg Tablet PO TID@0000,0900,1700 KARAN Ceftriaxone Sodium/Dextrose 1 gm in 50 mls @ 100 mls/hr 10/12/20 06:00 10/15/20 05:57 Rocephin 1 Gm/D5w 50 Ml IVPB 100 mls/hr Q24H KARAN Administration Dextrose 1,000 mls @ 100 mls/hr 10/12/20 14:58
--- NOTE | 2020-10-15 15:37 | PM.DS ---
DS: Admitting Diagnosis Admitting Diagnosis Admitting Diagnosis: Fall DS: Discharge Diagnosis Discharge Diagnosis (1) Acute anemia: Code(s): D64.9 - Anemia, unspecified Status: Acute Assessment and Plan: Hemoglobin was normal at presentation and dropped by 3 points following admission. Secondary to intramuscular hematoma. Stool occult blood test negative. Iron panel reviewed which demonstrated anemia of chronic disease. Home Xarelto was held. H&H was monitor closely and remained stable. Xarelto resumed at discharge. Repeat H&H on Tuesday, 10/20 (2) Intramuscular hematoma: Code(s): T14.8XXA - Other injury of unspecified body region, initial encounter Status: Acute Assessment and Plan: Patient had increased pain to her right thigh after suffering a fall so a CT was ordered showing right vastus intermedius intramuscular hematoma. She was seen in consultation by Orthopedic surgery. No concerns for compartment syndrome and neurovascular checks were monitored. Supportive care including ice, heat, and compression provided. Follow-up with orthopedic surgery as an outpatient as needed. Analgesics available as needed for pain. (3) Acute kidney injury superimposed on chronic kidney disease: Code(s): N17.9 - Acute kidney failure, unspecified; N18.9 - Chronic kidney disease, unspecified Status: Acute Assessment and Plan: Acute on chronic CKD. Creatinine 1.0 on arrival and peaked at 1.5. Suspect prerenal etiology likely due to dehydration and diuretics. Renal function improved with IV hydration. Diuretics held during stay but will be resumed as an outpatient. Repeat BMP in 1 week. (4) Acute UTI: Code(s): N39.0 - Urinary tract infection, site not specified Status: Acute Assessment and Plan: Urine culture with growth of 10,000-49,000 CFU E. Coli. She remained afebrile. She was treated with IV Rocephin and will continue p.o. cefdinir to complete a total of 7 days of antibiotic therapy. (5) Frequent falls: Code(s): R29.6 - Repeated falls Status: Acute Assessment and Plan: Patient has had 2 falls in the last 10 days. Falls could be secondary to acute urinary tract infection vs overall physical deconditioning. She was evaluated by PT/OT and will continue therapy at SNF. Fall precautions initiated. (6) Atrial fibrillation: Qualifiers: Atrial fibrillation type: unspecified Qualified Code(s): I48.91 - Unspecified atrial fibrillation Code(s): I48.91 - Unspecified atrial fibrillation Status: Chronic Assessment and Plan: Rate was controlled. Continue metoprolol. Xarelto held given acute anemia but will be resumed as an outpatient. (7) Type 2 diabetes mellitus with diabetic neuropathy: Qualifiers: Diabetes mellitus oysterman insulin use: with oysterman use Qualified Code(s): E11.40 - Type 2 diabetes mellitus with diabetic neuropathy, unspecified; Z79.4 - care home (current) use of insulin Code(s): E11.40 - Type 2 diabetes mellitus with diabetic neuropathy, unspecified Status: Chronic Assessment and Plan: A1c is 7.9. Glucose levels were monitored and covered with with sliding scale insulin and home Lantus. DS: Summary Hospital Course Reason for hospitalization: Fall Hospital Course: Date of admission: 10/11/2020 Date of discharge: 10/15/2020 Laurel Rucker is a 70-year-old female with a history of aortic stenosis, chronic atrial fibrillation, CHF, CKD, diabetes, hypertension, and multiple other comorbidities to the emergency department on 10/11/2020 after suffering a ground level fall while using her wheeled walker, stating that her wheel got caught on a rug and hip to the side. She had right leg pain. She denies hitting her head or losing consciousness. Upon presentation to the emergency department, her vital signs were stable, hemoglobin was 12.2 and hematoc
== END 2020-10-15 16:27 | DRG 690 ==
LOC: ANHED 05:19 → ANH2MED 07:04
PROVIDERS: Physician Assistant; Admitting Provider Internal Medicine; Emergency Provider Emergency Medicine; PCP Nurse Practitioner Family; Visit Provider Hospitalist
DX: N39.0 Urinary tract infection, site not specified (principal); I13.0 Hypertensive heart and chronic kidney disease with heart failure and stage 1 through stage 4 chronic kidney disease, or unspecified chronic kidney disease; I50.32 Chronic diastolic (congestive) heart failure; N17.9 Acute kidney failure, unspecified; I48.20 Chronic atrial fibrillation, unspecified; B96.20 Unspecified Escherichia coli [E. coli] as the cause of diseases classified elsewhere; D63.8 Anemia in other chronic diseases classified elsewhere; S70.11XA Contusion of right thigh, initial encounter; W18.2XXA Fall in (into) shower or empty bathtub, initial encounter; R29.6 Repeated falls; E11.42 Type 2 diabetes mellitus with diabetic polyneuropathy; E11.22 Type 2 diabetes mellitus with diabetic chronic kidney disease; N18.30 Chronic kidney disease, stage 3 unspecified; G47.33 Obstructive sleep apnea (adult) (pediatric); I27.20 Pulmonary hypertension, unspecified; F31.9 Bipolar disorder, unspecified; I35.0 Nonrheumatic aortic (valve) stenosis; J45.909 Unspecified asthma, uncomplicated; K21.9 Gastro-esophageal reflux disease without esophagitis; Z79.01 Long term (current) use of anticoagulants; Z79.4 Long term (current) use of insulin; Z79.82 Long term (current) use of aspirin; Z79.899 Other long term (current) drug therapy; Z98.42 Cataract extraction status, left eye; Z98.41 Cataract extraction status, right eye; Z96.653 Presence of artificial knee joint, bilateral
CPT/HCPCS: 36415; 70450; 71250; 72125; 73502; 73552; 73562; 73630; 73700; 74176; 80048; 80053; 81001; 82274; 82607; 82728; 82746; 82948; 83036; 83540; 83550; 83735; 84466; 85014; 85018; 85025; 87077; 87086; 87088; 87186; 96361; 96365; 96366; 96372; 96375; 96376; 97110; 97162; 97165; 97530; 97535; 99285; A9270; C9113; G0378; J0696; J1650; J1815; J2270; J7120

== ENCOUNTER 2020-11-11 11:12 | Observation (INO) | payer OTHER, SELFPAY ==
[2020-11-11] VITALS (11 sets, daily range): BP systolic 95–139; BP diastolic 55–98; PULSE 56–100; RESP 16–20; TEMP 36.4–36.9; O2SAT 89–100; BMI 107.0; BMI 48.9
--- NOTE | ~2020-11-11 | CT_ITS ---
EXAMINATION: CTA chest PE protocol DATE: 11/11/2020 15:25 INDICATION: Shortness of breath with exertion TECHNIQUE: Computed tomography angiography (CTA) of the chest was performed with 100 mL Omnipaque-350 intravenous contrast timed to evaluate the pulmonary arteries. Coronal maximum intensity projection 3D-reconstructions were created by the technologist. Automated exposure control and iterative reconst ruction technique were employed. Exam dose: 1023.39 mGy-cm total exam DLP. COMPARISON: 11/11/2020 PA and lateral chest 10/11/2020 CT chest abdomen pelvis FINDINGS: There is diagnostic contrast enhancement of the pulmonary arteries and no apparent pulmonar y embolism. Evaluation of the more distal pulmonary arteries however is limited due to motion. Cardiomegaly. There is mild pericardial effusion. There are small bilateral pleural effusions, right greater than left. There are patchy groundglass infiltrates throughout both lungs; diffusion diagnosis includes pulmonar y edema and/or pneumonia. 1.9 cm right adrenal adenoma. Status post cholecystectomy. Small sliding hiatal hernia. Degenerative changes of the thoracic and lumbar spine, particularly severe at T9-10.. IMPRESSION: Cardiomegaly Mild pericardial effusion Patchy bilateral groundglass infiltrates throughout both lungs Bilateral mild pleural effusions, right greater than left Congestive heart failure and pulmonary edema are likely. Pneumonia is not excluded. Reviewed, dictated and finalized at [facility]. Reviewed, dictated and finalized at location [facility]. IMPRESSION: Cardiomegaly Mild pericardial effusion Patchy bilateral groundglass infiltrates throughout both lungs Bilateral mild pleural effusions, right greater than left Congestive heart failure and pulmonary edema are likely. Pneumonia is not exclu ded.
--- NOTE | ~2020-11-11 | XR_ITS ---
XR chest 2V 11/11/2020 12:12 Indication: Shortness of breath Procedure: AP and lateral views of the chest Comparison: Comparison to multiple prior studies sequentially, with oldest reviewed study dated 04/01. Findings: Patchy bilateral airspace disease. Cardiomegaly. No pleural effusion. No pneumothorax. No a cute osseous abnormality. Impression: 1: Patchy bilateral airspace disease may represent pneumonia or less likely edema. 2: Cardiomegaly. Reviewed, dictated and finalized at location [facility]. Impression: 1: Patchy bilateral airspace disease may represent pneumonia or less likely ronit ma. 2: Cardiomegaly.
--- NOTE | 2020-11-11 11:30 | ECG_ITS ---
Measurements Intervals [place] Rate: 85 P: [place]: 0 QRS: -19 QRSD: 110 T: 78 QT: 396 QTc: 473 Interpretive Statements ATRIAL FIBRILLATION LOW QRS VOLTAGE IN PRECORDIAL LEADS POOR R WAVE PROGRESSION, ANTERIOR LEADS BORDERLINE ST-T WAVE ABNORMALITY- HIGH LATERAL LEADS BASELINE ARTIFACT- II, III, AVR, AVF, V3-V6 ABNORMAL ECG Electronically Signed On 11-11-2020 12:02:38 CDT by Lucho Mederos D.O.
[2020-11-11 11:40] LABS: Basophils Percent Auto 0.6 % (0.2-1.2); Eosinophils Absolute Auto 0.4 K/mm3 (0-0.3); Eosinophils Percent Auto 5.3 % (0-4.4); Hematocrit 25.6 % (37.0-47.0); Hemoglobin 7.5 g/dL (12.0-15.0); Immature Granulocyte Absolute 0.03 K/mm3 (0.00-0.031); Immature Granulocyte Percent A 0.5 % (0-0.5); Lymphocytes Absolute Auto 0.96 K/mm3 (0.9-3.2); Lymphocytes Percent Auto 14.5 % (18.3-44.2); Mean Corpuscular HGB Conc 29.3 g/dl (32-36); Mean Corpuscular Hemoglobin 33.2 pg (26-34); Mean Corpuscular Volume 113.3 fl (80-100); Mean Platelet Volume 9.6 fl (7.4-10.4); Monocytes Absolute Auto 0.4 K/mm3 (0.1-0.6); Neutrophils Absolute Auto 4.8 K/mm3 (1.3-6.7); Neutrophils Percent Auto 73.1 % (45.5-73.1); Platelet Count Result 238 k/mm3 (150-375); Red Blood Count 2.26 M/mm3 (4.2-5.4); Red Cell Distribution Width 18.3 % (11.5-14.5); White Blood Count 6.6 K/mm3 (4.5-10.0)
[2020-11-11 11:53] LABS: Anion Gap 10 mmol/L (8-16); Blood Urea Nitrogen 19 mg/dL (7-17); Calcium 8.7 mg/dL (8.4-10.2); Carbon Dioxide 29 mmol/L (22-30); Chloride 102 mmol/L (98-107); Estimated CRCL calculation 66 ml/min; Estimated Glomerular Filt Rate 55; Glucose 176 mg/dL (65-105); Platelet Estimate Adequate (Adequate); Potassium 3.7 mmol/L (3.4-5.0); Sodium 141 mmol/L (137-145)
[2020-11-11 11:54] LABS: Anisocytosis 1+ (NORMAL); Hypochromasia 1+ (NORMAL); Macrocytosis 1+ (NORMAL)
--- NOTE | 2020-11-11 11:56 | ED.GENADULT ---
HPI - General Adult General Chief complaint: Shortness of Breath/Dyspnea Stated complaint: sob Time Seen by Provider: 11/11/20 11:23 Source: patient History of Present Illness HPI narrative: Patient is a 70 y/o female complaining of severe SOB starting this morning. She states that walking or any exertion aggravates her SOB. She has no cough or chest pain. She has some leg swelling. Related Data Home Medications Medication Instructions Recorded Confirmed duloxetine 30 mg PO DAILY 07/31/20 10/11/20 insulin aspart U-100 [Novolog 1 sliding scale dose SUBCUT 07/31/20 10/11/20 U-100 Insulin aspart] USEASDIRECTD furosemide 40 mg PO QPM 10/11/20 10/11/20 furosemide 60 mg PO QAM 10/11/20 10/11/20 montelukast 10 mg PO HS 10/11/20 10/11/20 pantoprazole 40 mg PO HS 10/11/20 10/11/20 Allergies Allergy/AdvReac Type Severity Reaction Status Date / Time SUZE Inhibitors Allergy Mild Cough Verified 11/11/20 14:37 amoxicillin Allergy Mild Rash Verified 11/11/20 14:37 cat dander Allergy Mild Swelling Verified 11/11/20 14:37 of the Eye clavulanic acid Allergy Mild RASH Verified 11/11/20 14:37 adhesive AdvReac Mild BLISTERS Verified 11/11/20 14:37 Review of Systems Constitutional: Constitutional: Denies chills, Denies fever(s), Denies headache(s) and Denies weakness Eyes: Eyes: Denies blurry vision ENT: Denies headache(s) and Denies neck pain Cardiovascular: Cardiovascular: Denies chest pain, Reports leg edema and Reports dyspnea Respiratory: Respiratory: Denies cough and Reports dyspnea Gastrointestinal: Gastrointestinal: Denies abdominal pain, Denies diarrhea, Denies nausea and Denies vomiting Genitourinary: Genitourinary: Denies hematuria and Denies dysuria Musculoskeletal: Musculoskeletal: Denies back pain and Denies neck pain Neurologic: Denies headache(s) and Denies weakness [facility] Past Medical History Medical History Acute kidney injury Anemia With history of blood transfusion. Aortic stenosis (~2017) Moderate aortic stenosis noted on echocardiogram in December 2017. Arthritis (~2009) Asthma Atrial fibrillation, chronic Bipolar 1 disorder Body mass index (BMI) 45.0-49.9, adult (12/19/18) Body mass index (BMI) of 50-59.9 in adult (02/24/18) Calcification of left breast on mammography CHF (congestive heart failure) (~2018) Chronic kidney disease, stage 3 (~05/2019) With history of temporary dialysis during lengthy hospitalization. CKD stage 3 due to type 2 diabetes mellitus Diabetic peripheral neuropathy Diastolic congestive heart failure (~2018) On echocardiogram in December 2017. Moderate pulmonary hypertension also noted at that time. 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 Obstructive sleep apnea (~2014) Uses a CPAP at nighttime. Paroxysmal atrial fibrillation (~2019) Peripheral neuropathy Positive colorectal cancer screening using Cologuard test Postmenopausal Pulmonary nodule Rhinosinusitis Shortness of breath Toe fracture lt great toe fx. Type 2 diabetes mellitus with diabetic nephropathy, with long-term current use of insulin Type 2 diabetes mellitus with diabetic neuropathy Type 2 diabetes mellitus with hyperglycemia, with long-term current use of insulin Unspecified asthma with status asthmaticus Uterine cancer Status post hysterectomy. Vitamin D deficiency Surgical History Surgical History Cataracts, bilateral History of bilater
[2020-11-11] MEDS: FUROSEMIDE INJ 40 MG/4 ML VIAL IV PUSH (12:25)
[2020-11-11 13:16] LABS: NT Pro B Type Natriuretic Pept 3280 pg/mL (5-100)
[2020-11-11 13:20] LABS: Troponin I < 0.012 ng/mL (0.000-0.034)
[2020-11-11 13:41] LABS: D Dimer 2.02 ug/mL (<0.48)
[2020-11-11 14:56] LABS: Troponin I < 0.012 ng/mL (0.000-0.034)
--- NOTE | 2020-11-11 17:09 | ADMGEN ---
This patient, Laurel Rucker, was admitted to [facility] Surg Room 321-01. Patient/family oriented to hospital policies and general routines including ID bracelet, bed and alarms, visiting hours, pain management, procedures, bathroom and other care routines, personal items, smoking policy, room service/diet, and visiting hours. Information on how to activate the Rapid Response Team has been discussed. Patient/Family are encouraged to report perceived risks to care and to ask questions if they do not understand what they are told or what they should do.
[2020-11-11 18:11] LABS: Troponin I < 0.012 ng/mL (0.000-0.034)
[2020-11-11 21:11] LABS: Glucose Point of Care 214 mg/dl (65-105)
--- NOTE | 2020-11-11 22:52 | PM.IMHP ---
H&P: HPI History of Present Illness Date/Time: 11/11/20 22:52 Chief Complaint: Shortness of breath Narrative: 70-year-old female with a past medical history of diastolic congestive heart failure, severe aortic stenosis, moderate pulmonary hypertension, obstructive sleep apnea, obesity and diabetes who presented to the ER with shortness of breath. The patient reported shortness of breath acutely worsened this morning. She reports that her shortness of breath is worse with any activity. She reports that her weight prior to her recent rehab stay with down to 296. When she returned home from rehab her weight was at 306 lb In the last 24 hour she has gained almost 4 lb. She had noticed some mild increased swelling of her lower extremities which has improved after Lasix administered in the ER. She thinks that she has been getting her home Lasix. She is unsure if she put her a.m. dose of Lasix in her pill sorter. She reports that she has been compliant with a low-salt diet at home but was not getting a low-salt diet at the rehab facility. She denies any chest pain. She has not been having any cough or congestion. She received both for COVID vaccines with her 2nd dose being in July. She has not had any fevers or chills. She reports that Dr. Bai is monitoring her aortic stenosis closely and she recently had echocardiogram as outpatient. The echo is not available for my review. She has otherwise been feeling her usual self. She was hypoxic with oxygen saturations of 89%. She does not usually use oxygen at home. She does have obstructive sleep apnea but has not used her CPAP since she lost about 100 lb. She reports that her CPAP now seems to give her too much pressure. She was supposed to follow-up with pulmonology regarding a repeat polysomnogram but her appointment was rescheduled. She was Postal follow-up with her primary care provider tomorrow but could not wait and had to come to the ER due to her symptoms. The patient has bilateral lower extremity pain due to had diabetic peripheral neuropathy. She is very upset that she has not received her Neurontin since this morning. Review of Systems Review of Systems: Narrative: 12 systems were reviewed with pertinent positives and negatives per HPI. Except as documented in the HPI, all other systems were reviewed and are negative. [facility] Past Medical History Medical History (Updated 11/12/20 @ 00:47 by Jaclyn Owusu DO) Anemia With history of blood transfusion. Aortic stenosis (~2017) Severe aortic stenosis noted on echocardiogram in April 2020 Arthritis (~2009) Asthma Atrial fibrillation, chronic Bipolar 1 disorder Body mass index (BMI) 45.0-49.9, adult (12/19/18) Calcification of left breast on mammography CKD stage 3 due to type 2 diabetes mellitus (~05/2019) With history of temporary dialysis during lengthy hospitalization Diabetic peripheral neuropathy Diastolic congestive heart failure (~2018) Most recent echo April 2020. Mild LVH. EF 60%. Mild mitral valve regurgitation Diverticulitis Essential (primary) hypertension GERD without esophagitis Glaucoma Gout History of pneumonia Hypercholesteremia (~2009) Hyperlipidemia (~2009) [facility] (current) use of insulin Major depressive disorder, recurrent, unspecified Moderate pulmonary hypertension Obstructive sleep apnea (~2014) Uses a CPAP at nighttime. Peripheral neuropathy Positive colorectal cancer screening using Cologuard test Postmenopausal Pulmonary nodule Rhinosinusitis Toe fracture lt great toe fx. Type 2 diabetes mellitus with diabetic nephropathy, with long-term current use of insulin Unspecified asthma with status asthmaticus Uterine cancer Status post hysterectomy. Vitamin D deficiency Surgical History Surgical History (Updated 11/12/20 @ 00:46 by Jaclyn Owusu DO) History of total bilateral knee replacement History of tracheostomy After lengthy hospitalization in 2014. Hx of bilateral catara
[2020-11-11] MEDS: PANTOPRAZOLE 40 MG TABLET PO (23:31)
[2020-11-11] MEDS: MONTELUKAST SODIUM 10 MG TABLET PO (23:32)
[2020-11-11] MEDS: HYDROcodone/acetaminophen (*CRX) 5-325 MG TABLET 1 TAB PO (23:32)
[2020-11-12] VITALS (13 sets, daily range): BP systolic 103–128; BP diastolic 62–79; PULSE 54–122; RESP 18–20; TEMP 36.2–36.6; O2SAT 85–99
[2020-11-12] MEDS: GABAPENTIN 300 MG CAPSULE 600 MG PO ×4 (00:18→21:14)
[2020-11-12 06:01] LABS: Hematocrit 24.7 % (37.0-47.0); Hemoglobin 7.2 g/dL (12.0-15.0); Mean Corpuscular HGB Conc 29.1 g/dl (32-36); Mean Corpuscular Hemoglobin 33.8 pg (26-34); Mean Platelet Volume 9.6 fl (7.4-10.4); Platelet Count Result 201 k/mm3 (150-375); Red Blood Count 2.13 M/mm3 (4.2-5.4); Red Cell Distribution Width 17.8 % (11.5-14.5); White Blood Count 5.2 K/mm3 (4.5-10.0)
[2020-11-12 06:21] LABS: Anion Gap 8 mmol/L (8-16); Blood Urea Nitrogen 19 mg/dL (7-17); Calcium 8.4 mg/dL (8.4-10.2); Carbon Dioxide 32 mmol/L (22-30); Chloride 103 mmol/L (98-107); Estimated CRCL calculation 56 ml/min; Estimated Glomerular Filt Rate 44; Glucose 152 mg/dL (65-105); Potassium 3.6 mmol/L (3.4-5.0); Sodium 143 mmol/L (137-145)
[2020-11-12 08:02] LABS: Glucose Point of Care 160 mg/dl (65-105)
[2020-11-12] MEDS: hydrALAZINE HCL 25 MG TABLET BY MOUTH ×3 (08:16→17:12)
[2020-11-12] MEDS: ROSUVASTATIN 5 MG TABLET PO (08:16)
[2020-11-12] MEDS: DULoxetine HCL 30 MG CAPSULE.DR PO (08:17)
[2020-11-12] MEDS: FUROSEMIDE INJ 40 MG/4 ML VIAL 60 MG IV PUSH ×2 (08:18→17:12)
[2020-11-12 11:56] LABS: Glucose Point of Care 235 mg/dl (65-105)
[2020-11-12] MEDS: INSULIN ASPART (*BKC) 100 UNITS/ML SUB-Q (12:16)
[2020-11-12] MEDS: METOPROLOL SUCCINATE EXT REL 50 MG TABCR PO (12:19)
[2020-11-12] MEDS: HYDROcodone/acetaminophen (*CRX) 5-325 MG TABLET 1 TAB PO ×2 (14:22→21:14)
--- NOTE | 2020-11-12 16:19 | PM.IMPN ---
Progress Note: A&P Assessment and Plan (1) CHF exacerbation: Qualifiers: Heart failure type: diastolic Qualified Code(s): I50.33 - Acute on chronic diastolic (congestive) heart failure Code(s): I50.9 - Heart failure, unspecified Status: Acute Assessment and Plan: patient presents with complaints of SOB and weight gain. She had a BNP 3280. CXR showing pathcy bilateral airspace disease most consistent with pulmonary edema. Echo ([facility]) in May 2020 showing EF 55-60% and moderate . Started on IV Lasix and clinically feels better. Fluid balance inaccuarate. Continue for one more day. Wean O2 as toelrated. (2) Atrial fibrillation: Qualifiers: Atrial fibrillation type: unspecified chronic Qualified Code(s): I48.20 - Chronic atrial fibrillation, unspecified Code(s): I48.91 - Unspecified atrial fibrillation Status: Acute Assessment and Plan: HR well controlled. Continue tele monitoring. Continue Metoprolol for rate control. Continue Xarelto. Resume Diltiazem when able. (3) Type 2 diabetes mellitus with hyperglycemia, with long-term current use of insulin: Code(s): E11.65 - Type 2 diabetes mellitus with hyperglycemia; Z79.4 - superintendent terminal (current) use of insulin Status: Acute Assessment and Plan: A1c 7.9 last month. The patient's blood glucose was reviewed on 11/12 Glucose remains elevated at times. She is on Novolog as directed at home. Continue AccuCheks covering with sliding scale. Hypoglycemia protocol available as needed. Continue close observation. (4) Aortic stenosis: Onset Date: ~2017 Qualifiers: Cardiac valve disease etiology: etiology unspecified Qualified Code(s): I35.0 - Nonrheumatic aortic (valve) stenosis Code(s): I35.0 - Nonrheumatic aortic (valve) stenosis Status: Chronic Assessment and Plan: Valve area about 1.2cm2 from last echo. Could be contributing to her SOB and/or CHF. Patient to follow up with Cardiology for further monitoring. (5) Anemia: Code(s): D64.9 - Anemia, unspecified Status: Chronic Assessment and Plan: Hgb normal in July but dropped to 7-8 range in September due to intramuscular hematoma. At that time, stool occult blood test negative and iron panel was consistent with anemia of chronic disease; B12/folate normal. Colonoscopy performed in August due to guaiac positive stools. [place] showing diverticulosis and polyps s/p polypectomy. Hgb 7.5 on admission. Will repeat iron studies. (6) Chronic kidney disease, stage 3: Onset Date: ~05/2019 Qualifiers: Chronic kidney disease stage 3 subtype: stage 3b (GFR 30-44) Qualified Code(s): N18.32 - Chronic kidney disease, stage 3b Code(s): N18.3 - Chronic kidney disease, stage 3 (moderate) Status: Chronic Assessment and Plan: Baseline Cr runs 1-1.5 range. Cr 1.0 on admission but may be falsely low related to fluid overload. Continue to monitor on the IV Lasix Subjective Date/time seen: 11/12/20 16:19 Interval history: 70yo female with CHF, pulm HTN, ANNIE, DM, AFib and aortic stenosis here for shortness of breath. Eating okay. No CP. No SOB but having FOX but she recovers quickly. On 1L (RN tried to move to RA but dropped to 85%). She follows with Dr Bai and states she had an Echo 3 months ago but said the valve 'was not ready'. Exam Narrative: Exam Narrative: AF 97.8 103/62 54 18 97% ra Gen - NARD Chest - CTA bilaterally, nml RR CV - irregularly irregular; 2/6 systolic murmur loudest in the RUSB. Tele showing AFib, PVCs Abd - Soft, NT/ND, Positive BS with abd wall edema Ext - trace pedal edema Neuro - Alert and oriented. Nonfocal exam. Psych - Nml mood and affect Skin - Warm and dry; Old bruising to the right upper arm Objective Data Vital Signs Vital Signs: Vital Signs - 24 hr 11/11/20 16:40 11/11/20 17:05 11/11/20 17:32
[2020-11-12 16:59] LABS: Glucose Point of Care 154 mg/dl (65-105)
[2020-11-12] MEDS: RIVAROXABAN 15 MG TABLET PO (17:12)
[2020-11-12] MEDS: PANTOPRAZOLE 40 MG TABLET PO (21:14)
[2020-11-12] MEDS: MONTELUKAST SODIUM 10 MG TABLET PO (21:14)
[2020-11-12] MEDS: LATANOPROST 0.005% OP SOLN 2.5 ML BTL 1 DROP EACH EYE (21:14)
[2020-11-12 23:24] LABS: Glucose Point of Care 117 mg/dl (65-105)
[2020-11-13] VITALS (8 sets, daily range): BP systolic 102–140; BP diastolic 66–83; PULSE 70–95; RESP 18; TEMP 35.9–37.2; O2SAT 91–96
--- NOTE | 2020-11-13 | ECHO_ITS ---
Patient Info Name: Laurel Rucker Age: 70 years : 1950 Gender: Female Ht: 67 in Wt: 311 lbs BSA: 2.66 m2 HR: 95 bpm BP: 102 / 83 mmHg Heart Rhythm: Atrial Fibrillation Technical Quality: Good Exam Date: 11/13/2020 11:34 AM Exam Location: [facility] Pulmonary Exam Room: 321 Patient Status: Inpatient Admit Date: 11/11/2020 Staff Ordering Physician: Christoph Corona MD Anesthesia Tech: Lucy Cash RDCS Attending Provider: Nikhil Horowitz MD Exam Type: CA echo doppler color flow Study Info Indications - chf Complete two-dimensional, color flow and Doppler transthoracic echocardiogram is performed. Summary 1. Complete two-dimensional, color flow and Doppler transthoracic echocardiogram is performed. 2. Normal left ventricular size with moderate concentric hypertrophy. Good systolic function of all segments with ejection fraction of 65-70%, and no focal wall motion abnormalities. Diastolic dysfunction is present. 3. Left atrial chamber dimension is severely enlarged. 4. Right atrial chamber dimension is mildly enlarged. 5. There is severe aortic valve stenosis with a peak velocity of 420 cm/s, mean gradient of 44 mmHg, and aortic valve area of 1.1 cm2. 6. There is mild aortic valve regurgitation. 7. There is mild mitral valve regurgitation. 8. There is mild tricuspid valve regurgitation. 9. Severe pulmonary hypertension, estimated pulmonary arterial systolic pressure is 69 mmHg. 10. Dilated inferior vena cava with >50% collapse upon inspiration consistent with elevated right atrial pressure, 10 mmHg. 11. There is small pericardial effusion. Most of it is near the right atrium measuring 1.6 cm thick at that point but overall fairly small with no evidence of tamponade. 12. Atrial fibrillation. Left Ventricle Left ventricular chamber dimension is normal. Left ventricular systolic function is normal, estimated at 65-70%. There is moderately increased left ventricular wall thickness. Left ventricular septal wall motion is normal. The left ventricular diastolic function is abnormal. Right Ventricle Right ventricular chamber dimension is normal. Right ventricular systolic function is normal. Left Atria Left atrial chamber dimension is severely enlarged. Right Atria Right atrial chamber dimension is mildly enlarged. Aortic Valve The aortic valve is trileaflet. There is no aortic valve sclerosis. There is severe aortic valve stenosis with a peak velocity of 420 cm/s, mean gradient of 44 mmHg, and aortic valve area of 1.1 cm2. There is mild aortic valve regurgitation. There is severe aortic valve calcification. Pulmonic Valve The pulmonic valve is normal. There is no pulmonic valve stenosis. There is no pulmonic regurgitation. Mitral Valve The mitral valve has normal leaflets. There is no mitral valve stenosis. There is mild mitral valve regurgitation. Tricuspid Valve The tricuspid valve leaflets are normal. There is no significant tricuspid valve stenosis. There is mild tricuspid valve regurgitation. Severe pulmonary hypertension, estimated pulmonary arterial systolic pressure is 69 mmHg. Pericardium/Pleural The pericardium appears normal. There is small pericardial effusion. Most of it is near the right atrium measuring 1.6 cm thick at that point but overall fairly small with no evidence of tamponade. Inferior Vena Cava Dilated inferior vena cava with >50% collapse upon inspiration consistent with elevated right atrial pres
[2020-11-13] MEDS: GABAPENTIN 300 MG CAPSULE 600 MG PO ×2 (06:02→14:49)
[2020-11-13] MEDS: HYDROcodone/acetaminophen (*CRX) 5-325 MG TABLET 1 TAB PO ×2 (06:06→14:52)
[2020-11-13 06:10] LABS: Basophils Percent Auto 0.6 % (0.2-1.2); Eosinophils Absolute Auto 0.3 K/mm3 (0-0.3); Eosinophils Percent Auto 6.2 % (0-4.4); Hematocrit 24.8 % (37.0-47.0); Hemoglobin 7.3 g/dL (12.0-15.0); Immature Granulocyte Absolute 0.02 K/mm3 (0.00-0.031); Immature Granulocyte Percent A 0.4 % (0-0.5); Lymphocytes Percent Auto 20.1 % (18.3-44.2); Mean Corpuscular HGB Conc 29.4 g/dl (32-36); Mean Corpuscular Hemoglobin 32.9 pg (26-34); Mean Corpuscular Volume 111.7 fl (80-100); Mean Platelet Volume 9.8 fl (7.4-10.4); Monocytes Absolute Auto 0.4 K/mm3 (0.1-0.6); Monocytes Percent Auto 7.2 % (2.6-8.5); Neutrophils Absolute Auto 3.3 K/mm3 (1.3-6.7); Neutrophils Percent Auto 65.5 % (45.5-73.1); Platelet Count Result 210 k/mm3 (150-375); Red Blood Count 2.22 M/mm3 (4.2-5.4); Red Cell Distribution Width 17.2 % (11.5-14.5)
[2020-11-13 06:22] LABS: Albumin Level 3.1 g/dL (3.5-5.1); Anion Gap 4 mmol/L (8-16); Blood Urea Nitrogen 17 mg/dL (7-17); Calcium 8.4 mg/dL (8.4-10.2); Carbon Dioxide 35 mmol/L (22-30); Chloride 102 mmol/L (98-107); Estimated CRCL calculation 61 ml/min; Estimated Glomerular Filt Rate 49; Glucose 174 mg/dL (65-105); Phosphorus 4.2 mg/dL (2.5-4.5); Potassium 3.6 mmol/L (3.4-5.0); Sodium 141 mmol/L (137-145)
[2020-11-13 07:11] LABS: Iron 41 ug/dL (37-170)
[2020-11-13 07:13] LABS: Macrocytosis 1+ (NORMAL); Platelet Estimate Adequate (Adequate)
[2020-11-13 07:20] LABS: Percent Iron Saturation 16 % (20-50)
[2020-11-13] MEDS: FUROSEMIDE INJ 40 MG/4 ML VIAL 60 MG IV PUSH (08:13)
[2020-11-13] MEDS: hydrALAZINE HCL 25 MG TABLET BY MOUTH ×2 (08:13→12:18)
[2020-11-13] MEDS: METOPROLOL SUCCINATE EXT REL 50 MG TABCR PO (08:13)
[2020-11-13] MEDS: DULoxetine HCL 30 MG CAPSULE.DR PO (08:13)
[2020-11-13] MEDS: ROSUVASTATIN 5 MG TABLET PO (08:13)
[2020-11-13 08:16] LABS: Glucose Point of Care 178 mg/dl (65-105)
[2020-11-13 12:13] LABS: Glucose Point of Care 242 mg/dl (65-105)
[2020-11-13] MEDS: INSULIN ASPART (*BKC) 100 UNITS/ML SUB-Q (12:18)
--- NOTE | 2020-11-13 15:18 | PM.DS ---
DS: Admitting Diagnosis Admitting Diagnosis Admitting Diagnosis: Short of breath DS: Discharge Diagnosis Discharge Diagnosis (1) CHF exacerbation: Qualifiers: Heart failure type: diastolic Qualified Code(s): I50.33 - Acute on chronic diastolic (congestive) heart failure Code(s): I50.9 - Heart failure, unspecified Status: Acute Assessment and Plan: Patient presents with complaints of SOB and weight gain. She had a BNP 3280. CXR showing patchy bilateral airspace disease most consistent with pulmonary edema. Echo ([facility]) in May 2020 showing EF 55-60% and moderate . She was started on IV Lasix and clinically improved. Fluid balance was inaccurate. She normally does well with her current oral dose of Lasix. She was recently at a rehab facility that may have limited her dietary choices. Patient did well and was discharged home on the same Lasix dose with plans for daily weights as described in the discharge instructions. (2) Atrial fibrillation: Qualifiers: Atrial fibrillation type: unspecified chronic Qualified Code(s): I48.20 - Chronic atrial fibrillation, unspecified Code(s): I48.91 - Unspecified atrial fibrillation Status: Acute Assessment and Plan: Heart rate remained well controlled. She was monitored on telemetry. Metoprolol was resumed for rate control and we continued Xarelto. Diltiazem was resumed at discharge. (3) Type 2 diabetes mellitus with hyperglycemia, with long-term current use of insulin: Code(s): E11.65 - Type 2 diabetes mellitus with hyperglycemia; Z79.4 - retirement (current) use of insulin Status: Acute Assessment and Plan: A1c 7.9 last month. The patient's blood glucose was moniotred closely and remained elevated at times. She is on Novolog as directed at home. We monitored with AccuCheks covering with sliding scale. Hypoglycemia protocol was available as needed. (4) Aortic stenosis: Onset Date: ~2017 Qualifiers: Cardiac valve disease etiology: etiology unspecified Qualified Code(s): I35.0 - Nonrheumatic aortic (valve) stenosis Code(s): I35.0 - Nonrheumatic aortic (valve) stenosis Status: Chronic Assessment and Plan: Aortic valve area about 1.2cm2 from last echo. Could be contributing to her SOB and/or CHF. Patient is being followed by Cardiology. (5) Anemia: Code(s): D64.9 - Anemia, unspecified Status: Chronic Assessment and Plan: Hgb normal in July but dropped to 7-8 range in September due to intramuscular hematoma. At that time, stool occult blood test negative and iron panel was consistent with anemia of chronic disease; B12/folate normal. Colonoscopy performed in August due to guaiac positive stools showing diverticulosis and polyps s/p polypectomy. Repeat iron studies showing normal ferritin, iron and TIBC with saturation low at 16%. Hgb 7.5 on admission and remained stable. (6) Chronic kidney disease, stage 3: Onset Date: ~05/2019 Qualifiers: Chronic kidney disease stage 3 subtype: stage 3b (GFR 30-44) Qualified Code(s): N18.32 - Chronic kidney disease, stage 3b Code(s): N18.3 - Chronic kidney disease, stage 3 (moderate) Status: Chronic Assessment and Plan: Baseline Cr runs 1-1.5 range. Cr 1.0 on admission but may be falsely low related to fluid overload. Repeat Cr about the same at 1.1. DS: Summary Hospital Course Reason for hospitalization: 70yo female with CHF, pulm HTN, ANNIE, DM, AFib and aortic stenosis here for shortness of breath. Please see H&P for details. Hospital Course: Please see above for details of hospital course Status at Discharge Cognitive/behavioral status at discharge: Stable Time Spent with Patient Time attestation: Total time spent providing and/or coordinating discharge services: 35 minutes Time spent: Greater than 30 minutes Specific discharge activit
--- NOTE | 2020-11-13 17:47 | PC.NURSE ---
Pt is discharged. Pt's IV was removed, and tele monitor was removed. Pt's discharge instructions were reviewed with pt and pt exhibited good understanding of all discharge instructions. Pt was assisted by wheelchair to the front of the building and out to her sisters car.
--- NOTE | 2020-11-19 11:15 | PC.NURSE ---
Echo report faxed top Dr. Keara Corona aware of ECHO results
== END 2020-11-13 16:50 | disposition home health service (06) ==
LOC: ANHED 15:48 → ANH3MEDSUR 22:26
PROVIDERS: Internal Medicine; Admitting Provider Internal Medicine; Emergency Provider Emergency Medicine; PCP Family Medicine; Visit Provider Internal Medicine
DX: I13.0 Hypertensive heart and chronic kidney disease with heart failure and stage 1 through stage 4 chronic kidney disease, or unspecified chronic kidney disease (principal); I50.33 Acute on chronic diastolic (congestive) heart failure; R09.02 Hypoxemia; I48.0 Paroxysmal atrial fibrillation; I48.20 Chronic atrial fibrillation, unspecified; I35.0 Nonrheumatic aortic (valve) stenosis; I27.20 Pulmonary hypertension, unspecified; N18.30 Chronic kidney disease, stage 3 unspecified; E11.22 Type 2 diabetes mellitus with diabetic chronic kidney disease; E11.42 Type 2 diabetes mellitus with diabetic polyneuropathy; E11.21 Type 2 diabetes mellitus with diabetic nephropathy; E55.9 Vitamin D deficiency, unspecified; E78.5 Hyperlipidemia, unspecified; E78.00 Pure hypercholesterolemia, unspecified; D64.9 Anemia, unspecified; K57.30 Diverticulosis of large intestine without perforation or abscess without bleeding; K21.9 Gastro-esophageal reflux disease without esophagitis; H40.9 Unspecified glaucoma; J45.909 Unspecified asthma, uncomplicated; M10.9 Gout, unspecified; M19.90 Unspecified osteoarthritis, unspecified site; E66.01 Morbid (severe) obesity due to excess calories; G47.33 Obstructive sleep apnea (adult) (pediatric); R91.1 Solitary pulmonary nodule; F31.9 Bipolar disorder, unspecified; Z85.42 Personal history of malignant neoplasm of other parts of uterus; Z79.4 Long term (current) use of insulin; Z96.653 Presence of artificial knee joint, bilateral; Z98.49 Cataract extraction status, unspecified eye; Z90.49 Acquired absence of other specified parts of digestive tract; Z90.710 Acquired absence of both cervix and uterus; Z68.42 Body mass index [BMI] 45.0-49.9, adult
CPT/HCPCS: 36415; 71046; 71275; 77071; 80048; 80069; 82728; 82948; 83540; 83550; 83735; 83880; 84484; 85025; 85027; 85380; 93005; 93306; 96374; 96376; 99291; A9270; G0378; J1815; J1940; Q9967

== ENCOUNTER 2020-12-10 14:02 | Outpatient (CLI) | payer OTHER, SELFPAY ==
[2020-12-10 15:11] LABS: IFOB Positive Control Positive; Immunochemical Fecal Occult Bl Positive (N)
== END 2020-12-10 14:03 | disposition home or self-care (01) ==
PROVIDERS: PCP Family Medicine; Visit Provider Internal Medicine Cardiovascular Disease
DX: D64.9 Anemia, unspecified (principal)
CPT/HCPCS: 82274

== ENCOUNTER → 2021-01-01 10:51 | Outpatient (CLI) | payer OTHER, SELFPAY ==
--- NOTE | ~2021-01-01 | XR_ITS ---
XR foot RT min 3V DATE: 01/01/2021 11:21 INDICATION: Fell 1.5 weeks ago. Right foot pain. TECHNIQUE: 4 views COMPARISON: 10/11/2020 right foot FINDINGS: Diffuse osteopenia. Prominent plantar calcaneal enthesopathy. Os minimal posterior calcaneal enthesopathy. Osteoarthritis at the tibiotalar, talonavicular, first tarsometatarsal joints. No recent fracture or dislocation, periosteal reaction or bone destruction is detected. IMPRESSION: No recent fracture is detected Osteopenia Prominent plantar and minimal posterior calcaneal enthesopathy Polyarticular osteoarthritis Reviewed, dictated and finalized at location [facility].
--- NOTE | ~2021-01-01 | XR_ITS ---
XR knee LT 3V DATE: 01/01/2021 11:20 INDICATION: Fall 1.5 weeks ago. Left knee pain. TECHNIQUE: 3 views COMPARISON: None FINDINGS: Status post left knee arthroplasty. Diffuse osteopenia. No recent fracture or dislocation. No periosteal reaction or bone destruction. IMPRESSION: Left knee replacement Osteopenia No recent fracture or dislocation is evident Reviewed, dictated and finalized at location [facility].
== END ==
PROVIDERS: PCP Family Medicine; Visit Provider Family Medicine
DX: M19.071 Primary osteoarthritis, right ankle and foot (principal); M85.862 Other specified disorders of bone density and structure, left lower leg
CPT/HCPCS: 73562; 73630

== ENCOUNTER 2021-01-16 04:27 | Day surgery (SDC) | payer OTHER, SELFPAY ==
[2020-12-30 14:23] VITALS: BMI 47.2
[2021-01-16 06:42] VITALS: BP 149/94; PULSE 100; RESP 24; TEMP 36.3; O2SAT 96
[2021-01-16] MEDS: LACTATED RINGERS 1,000 ML 150 ML IV CONT (06:45)
[2021-01-16 06:49] LABS: Glucose Point of Care 207 mg/dl (65-105)
--- NOTE | 2021-01-16 07:08 | WPDANESEPPF ---
Anes - Initial Pre Proc Eval Procedure: Operation Date: 01/16/21 07:30 Proposed Procedures p Esophagogastroduodenoscopy - Delmer Hernandez MD s [facility] Capsule Endoscopy - Delmer Hernandez MD Date/Time: 01/16/21 07:08 Surgeon: Delmer Hernandez MD Pre Op Diagnosis: positive occult GI Bleed, anemia Patient Data Age: 70 Gender: F Height: 1.7 m Weight: 134.1 kg Last Vital Signs Temp 36.3 C L 01/16/21 06:42 Pulse 100 01/16/21 06:42 Resp 24 H 01/16/21 06:42 BP 149/94 H 01/16/21 06:42 Pulse Ox 96 01/16/21 06:42 Allergies Allergy/AdvReac Type Severity Reaction Status Date / Time SUZE Inhibitors Allergy Mild Cough Verified 01/16/21 06:38 amoxicillin Allergy Mild Rash Verified 01/16/21 06:38 cat dander Allergy Mild Swelling Verified 01/16/21 06:38 of the Eye clavulanic acid Allergy Mild RASH Verified 01/16/21 06:38 adhesive AdvReac Mild BLISTERS Verified 01/16/21 06:38 Home Medications Medication Instructions Recorded Confirmed Type furosemide 40 mg PO QPM 10/11/20 12/30/20 History furosemide 60 mg PO QAM 10/11/20 12/30/20 History montelukast 10 mg PO 10/11/20 12/30/20 History pantoprazole 40 mg PO 10/11/20 12/30/20 History acetaminophen 650 mg PO ONCE PRN #30 cap 10/15/20 12/30/20 Rx gabapentin 300 mg capsule 600 mg PO Q8H #270 cap 10/20/20 12/30/20 Rx diltiazem HCl 120 mg PO DAILY 11/12/20 12/30/20 History latanoprost 1 drp EACH EYE 11/12/20 12/30/20 History metoprolol succinate 50 mg PO DAILY 11/12/20 12/30/20 History ferrous sulfate 325 mg (65 mg 325 mg PO DAILY #90 tablet 11/21/20 12/30/20 Rx iron) tablet hydralazine 25 mg tablet 25 mg PO TID #270 tablet 11/21/20 12/30/20 Rx potassium chloride 20 mEq 20 meq PO DAILY #90 tablet 11/21/20 12/30/20 Rx tablet,extended release(part/cryst) rivaroxaban 20 mg tablet 20 mg PO DAILY #90 tablet 11/21/20 12/30/20 Rx duloxetine 30 mg capsule,delayed 30 mg PO DAILY #30 cap 12/18/20 12/30/20 Rx release insulin aspart U-100 100 unit/mL See Rx Instructions SUBCUT TID #33 12/29/20 12/30/20 Rx (3 mL) subcutaneous pen ml rosuvastatin 5 mg tablet 5 mg PO DAILY #90 tablet 12/29/20 12/30/20 Rx aspirin 81 mg PO DAILY 12/30/20 12/30/20 History insulin degludec [Tresiba 14 unit SUBCUT HS 12/30/20 12/30/20 History FlexTouch U-100] Laboratory Tests 01/16/21 06:32 POC Capillary Glucose 207 mg/dl H mg/dl (65-105) Patient hx anesthesia problems: none Family hx anesthesia problems: none PMFSH Past Medical History Medical History (Updated 12/31/20 @ 13:40 by Amos Sarah MD) Acute on chronic anemia Adenomatous colon polyp Anemia With history of blood transfusion. Aortic stenosis (~2017) Severe aortic stenosis noted on echocardiogram in April 2020 Arthritis (~2009) Asthma Atrial fibrillation, chronic Bipolar 1 disorder Body mass index (BMI) 45.0-49.9, adult (12/19/18) Calcification of left breast on mammography CKD stage 3 due to type 2 diabetes mellitus (~05/2019) With history of temporary dialysis during lengthy hospitalization Colon, diverticulosis Diabetic peripheral neuropathy Diastolic congestive heart failure (~2018) Most recent echo April 2020. Mild LVH. EF 60%. 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 Occult blood in stools Peripheral neuropathy Positive colorectal cancer screening using Cologuard test Postmenopausal Pulmonary nodule Rhinosinusitis Toe fracture lt great toe fx. Type 2 diabetes mellitus with diabetic nephropathy, with long-term current use of insulin Unspecified asthma with status asthmaticus Uterine cancer Status pos
--- NOTE | 2021-01-16 07:33 | WPDHPUPDATE1 ---
History and Physical Update Update Date/Time: 01/16/21 07:33 History and Physical has been reviewed, including an updated exam of the patient. There are NO changes in the patient's condition. Risks, benefits, and alternatives have been discussed and questions answered. Patient agrees to proceed with procedure.
[2021-01-16] MEDS: BENZOCAINE (*SP) 60 ML SPRAY CAN (HURRICAINE) 1 SPRAY MUCOUS MEM (07:37)
[2021-01-16 07:55] VITALS: BP 127/60; PULSE 78; RESP 22; O2SAT 92
--- NOTE | 2021-01-16 07:55 | SUR.OPER ---
Patient brought to GI Lab. Instructions for patient undergoing Capsule Endoscopy reviewed with patient. Consent form signed. Sensor array applied to patient's abdomen and connected to recorded. Capsule placed with an upper endoscopy scope. Patient instructed they may have clear liquids at 1000 this AM and eat or drink at 1200 this AM. Patient instructed to return to GI Lab at 1500 this afternoon for removal of recording device and to call [phone] or to return to the hospital if any nausea and vomiting or abdominal pain is experienced.
[2021-01-16 08:05] VITALS: BP 124/53; PULSE 75; RESP 21; O2SAT 92
[2021-01-16 08:15] VITALS: BP 115/58; PULSE 73; RESP 25; O2SAT 92
[2021-01-16 08:40] LABS: Glucose Point of Care 194 mg/dl (65-105)
--- NOTE | 2021-01-16 14:16 | SUR.OPER ---
Patient returned to the GI Lab at 1400 for recorder box removal. Patient voiced no complaints. States they have understanding of instructions. Patient left ambulatory.
== END 2021-01-16 08:47 | disposition home or self-care (01) ==
PROVIDERS: PCP Family Medicine; Visit Provider Internal Medicine Gastroenterology
PROC: 0DJ08ZZ Inspection of Upper Intestinal Tract, Via Natural or Artificial Opening Endoscopic (ICD-10-PCS; CPT 43235; principal; 2021-01-16 07:30)
PROC: 0DJ07ZZ Inspection of Upper Intestinal Tract, Via Natural or Artificial Opening (ICD-10-PCS; CPT 91110; 2021-01-16 07:30)
DX: D50.0 Iron deficiency anemia secondary to blood loss (chronic) (principal); K31.819 Angiodysplasia of stomach and duodenum without bleeding; R19.5 Other fecal abnormalities; I13.0 Hypertensive heart and chronic kidney disease with heart failure and stage 1 through stage 4 chronic kidney disease, or unspecified chronic kidney disease; I50.30 Unspecified diastolic (congestive) heart failure; N18.30 Chronic kidney disease, stage 3 unspecified; E11.22 Type 2 diabetes mellitus with diabetic chronic kidney disease; I35.0 Nonrheumatic aortic (valve) stenosis; I34.0 Nonrheumatic mitral (valve) insufficiency; I48.20 Chronic atrial fibrillation, unspecified; F31.9 Bipolar disorder, unspecified; E11.21 Type 2 diabetes mellitus with diabetic nephropathy; E11.42 Type 2 diabetes mellitus with diabetic polyneuropathy; E55.9 Vitamin D deficiency, unspecified; Z85.42 Personal history of malignant neoplasm of other parts of uterus; K57.30 Diverticulosis of large intestine without perforation or abscess without bleeding; Z79.82 Long term (current) use of aspirin; Z79.4 Long term (current) use of insulin; E66.01 Morbid (severe) obesity due to excess calories; Z68.42 Body mass index [BMI] 45.0-49.9, adult
CPT/HCPCS: 43270; 91110; 82948; J2704; J7120

== ENCOUNTER 2021-03-27 11:45 | Emergency (ER) | payer OTHER, SELFPAY ==
[2021-03-27 11:54] VITALS: BP 127/79; PULSE 94; RESP 18; TEMP 36.4; O2SAT 95
--- NOTE | 2021-03-27 12:28 | ED.FEMALEGU ---
HPI - Female Genitourinary General Chief complaint: Urogenital-Female Stated complaint: lt hip pain/radiating to stomach/POS UTI Time Seen by Provider: 03/27/21 12:10 Source: patient, RN notes reviewed and old records reviewed Mode of arrival: ambulatory Limitations: no limitations History of Present Illness HPI Narrative: 71 year old female who presents to [facility] care with complaints of left flank pain radiating to her left side for the past 1.5 weeks and is concerned she may have UTI. Patient denies any pain or burning with her urination, states no increase frequency or urgency with her urination or any foul odor. Patient is concerned that she might have UTI and wants to get treated prior to upcoming heart valve surgery which is planned for first part of next month.. Patient denies any fevers, chills or any sweats, denies any acute body aches has had COVID vaccinations. MD elicited complaint: flank pain (left) Related Data Home Medications Medication Instructions Recorded Confirmed pantoprazole 40 mg PO HS 10/11/20 03/27/21 diltiazem HCl 120 mg PO DAILY 11/12/20 03/27/21 latanoprost 1 drp EACH EYE HS 11/12/20 03/27/21 metoprolol succinate 50 mg PO DAILY 11/12/20 03/27/21 aspirin 81 mg PO DAILY 12/30/20 03/27/21 insulin degludec [Tresiba 14 unit SUBCUT HS 12/30/20 03/27/21 FlexTouch U-100] furosemide 40 mg PO QPM 03/27/21 03/27/21 Allergies Allergy/AdvReac Type Severity Reaction Status Date / Time SUZE Inhibitors Allergy Mild Cough Verified 03/27/21 12:04 amoxicillin Allergy Mild Rash Verified 03/27/21 12:04 cat dander Allergy Mild Swelling Verified 03/27/21 12:04 of the Eye clavulanic acid Allergy Mild RASH Verified 03/27/21 12:04 adhesive AdvReac Mild BLISTERS Verified 03/27/21 12:04 Review of Systems Review of Systems: CONSTITUTIONAL: Denies fever, chills, or sweats. EYES: Denies visual changes, redness, or discharge. ENT: Denies rhinorrhea, congestion, sore throat, or otalgia. CARDIOVASCULAR: Denies chest pain, palpitations, or edema. RESPIRATORY: Denies cough or dyspnea. GASTROINTESTINAL: Denies abdominal pain, nausea, vomiting, or diarrhea. GENITOURINARY: Denies dysuria or hematuria. SKIN: Denies rash or itching. MUSCULOSKELETAL:Positive for left flank pain which radiates to left side, joint pain, or myalgia. NEUROLOGIC: Denies headache, numbness, or weakness. PSYCHIATRIC: Positive for history of anxiety or depression. All systems reviewed & are unremarkable except as noted in HPI and below PMFSH Past Medical History Medical History Acute on chronic anemia Adenomatous colon polyp Anemia With history of blood transfusion. Aortic stenosis (~2017) Severe aortic stenosis noted on echocardiogram in April 2020 Arthritis (~2009) Asthma Atrial fibrillation, chronic Bipolar 1 disorder Body mass index (BMI) 45.0-49.9, adult (12/19/18) Calcification of left breast on mammography CKD stage 3 due to type 2 diabetes mellitus (~05/2019) With history of temporary dialysis during lengthy hospitalization Colon, diverticulosis Diabetic peripheral neuropathy Diastolic congestive heart failure (~2018) Most recent echo April 2020. Mild LVH. EF 60%. 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 Occult blood in stools Peripheral neuropathy Positive colorectal cancer screening using Cologuard test Postmenopausal Pulmonary nodule Rhinosinusitis Toe fracture lt great toe fx. Type 2 diabetes mellitus with diabetic nephropathy, with long-term current use of insulin Unspecified asthma with status asthmaticus Uterine cancer Status post hysterect
== END 2021-03-27 12:56 | disposition home or self-care (01) ==
PROVIDERS: Emergency Provider Registered Nurse; PCP Family Medicine
DX: N39.0 Urinary tract infection, site not specified (principal); D64.9 Anemia, unspecified; I35.0 Nonrheumatic aortic (valve) stenosis; M19.90 Unspecified osteoarthritis, unspecified site; J45.909 Unspecified asthma, uncomplicated; I48.91 Unspecified atrial fibrillation; I13.0 Hypertensive heart and chronic kidney disease with heart failure and stage 1 through stage 4 chronic kidney disease, or unspecified chronic kidney disease; E11.22 Type 2 diabetes mellitus with diabetic chronic kidney disease; N18.30 Chronic kidney disease, stage 3 unspecified; I50.30 Unspecified diastolic (congestive) heart failure; Z79.4 Long term (current) use of insulin; E11.42 Type 2 diabetes mellitus with diabetic polyneuropathy; K21.9 Gastro-esophageal reflux disease without esophagitis; H40.9 Unspecified glaucoma; M10.9 Gout, unspecified; E78.00 Pure hypercholesterolemia, unspecified; G47.33 Obstructive sleep apnea (adult) (pediatric); Z85.42 Personal history of malignant neoplasm of other parts of uterus; Z98.42 Cataract extraction status, left eye; Z98.41 Cataract extraction status, right eye; Z96.1 Presence of intraocular lens; Z96.653 Presence of artificial knee joint, bilateral
CPT/HCPCS: 81003; 87086; 99213; G0463

== ENCOUNTER → 2021-05-11 03:06 | Outpatient (CLI) | payer OTHER, SELFPAY ==
[2021-05-11 19:24] LABS: SARS-CoV-2 RNA PCR Negative
== END ==
PROVIDERS: PCP Family Medicine; Visit Provider Internal Medicine Cardiovascular Disease
DX: R68.89 Other general symptoms and signs (principal); Z20.822 Contact with and (suspected) exposure to COVID-19
CPT/HCPCS: C9803; U0003; U0005

== ENCOUNTER 2021-05-16 07:14 | Emergency (ER) | payer OTHER, SELFPAY ==
[2021-05-16 07:19] VITALS: BP 131/81; PULSE 86; RESP 18; TEMP 36.9; O2SAT 95
--- NOTE | 2021-05-16 08:17 | ED.ALLEREA ---
HPI - Allergic Reaction General Chief complaint: Allergic Reaction Stated complaint: ITCHING AND REDNESS AROUND SURGICAL SITE Time Seen by Provider: 05/16/21 07:51 Source: patient and EMS Mode of arrival: EMS History of Present Illness HPI narrative: Patient presents with itching at the site of a cardiac procedure at the right upper chest started yesterday. Patient also complaining of chronic lower back pain, worsening because because running out of gabapentin, patient also complaining of constipation. Last bowel movement was yesterday after leaving the [facility], after 2 days of hospitalization. Patient is telling me that they did not refill her gabapentin or even give her any Tylenol. Related Data Home Medications Medication Instructions Recorded Confirmed pantoprazole 40 mg PO HS 10/11/20 03/27/21 diltiazem HCl 120 mg PO DAILY 11/12/20 03/27/21 latanoprost 1 drp EACH EYE HS 11/12/20 03/27/21 metoprolol succinate 100 mg PO DAILY 11/12/20 03/27/21 insulin degludec [Tresiba 14 unit SUBCUT HS 12/30/20 03/27/21 FlexTouch U-100] furosemide 40 mg PO QPM 03/27/21 03/27/21 acetaminophen 1,000 mg PO QAM 05/16/21 acetaminophen 500 mg PO BID 05/16/21 apixaban 5 mg PO BID 05/16/21 cyanocobalamin (vitamin B-12) 1,000 mcg PO DAILY 05/16/21 ferrous sulfate 650 mg PO HS 05/16/21 fluticasone propionate [Flonase] 1 spray INTRANASAL DAILY 05/16/21 Allergies Allergy/AdvReac Type Severity Reaction Status Date / Time SUZE Inhibitors Allergy Mild Cough Verified 03/27/21 12:04 amoxicillin Allergy Mild Rash Verified 03/27/21 12:04 cat dander Allergy Mild Swelling Verified 03/27/21 12:04 of the Eye clavulanic acid Allergy Mild RASH Verified 03/27/21 12:04 adhesive AdvReac Mild BLISTERS Verified 03/27/21 12:04 Review of Systems Review of Systems: CONSTITUTIONAL: Denies fever, chills, or sweats. EYES: Denies visual changes, redness, or discharge. ENT: Denies rhinorrhea, congestion, sore throat, or otalgia. CARDIOVASCULAR: Denies chest pain, palpitations, or edema. RESPIRATORY: Denies cough or dyspnea. GASTROINTESTINAL: Denies abdominal pain, nausea, vomiting, or diarrhea. GENITOURINARY: Denies dysuria or hematuria. SKIN: Denies rash or itching. MUSCULOSKELETAL: Denies back pain, joint pain, or myalgia. NEUROLOGIC: Denies headache, numbness, or weakness. PSYCHIATRIC: Denies anxiety or depression. [facility] Past Medical History Medical History Acute on chronic anemia Adenomatous colon polyp Anemia With history of blood transfusion. Aortic stenosis (~2017) Severe aortic stenosis noted on echocardiogram in April 2020 Arthritis (~2009) Asthma Atrial fibrillation, chronic Bipolar 1 disorder Body mass index (BMI) 45.0-49.9, adult (12/19/18) Calcification of left breast on mammography CKD stage 3 due to type 2 diabetes mellitus (~05/2019) With history of temporary dialysis during lengthy hospitalization Colon, diverticulosis Diabetic peripheral neuropathy Diastolic congestive heart failure (~2018) Most recent echo April 2020. Mild LVH. EF 60%. 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 Occult blood in stools Peripheral neuropathy Positive colorectal cancer screening using Cologuard test Postmenopausal Pulmonary nodule Rhinosinusitis Toe fracture lt great toe fx. Type 2 diabetes mellitus with diabetic nephropathy, with long-term current use of insulin Unspecified asthma with status asthmaticus Uterine cancer Status post hysterectomy. Vitamin D deficiency Surgical History Surgical History (Reviewed 05/16/21 @ 08:25 by Dalton Hooper
[2021-05-16] MEDS: ONDANSETRON HCL ODT 4 MG TABLET PO (08:45)
[2021-05-16] MEDS: HYDROmorphone HCL INJ (*CRX) 1 MG/ML SYR IM (08:45)
[2021-05-16] MEDS: TRIAMCINOLONE ACET 0.5% OINT 15 GM TUBE 1 APPLIC TOPICAL (08:45)
[2021-05-16] MEDS: GABAPENTIN 300 MG CAPSULE 600 MG PO (08:45)
[2021-05-16 09:00] VITALS: BP 144/82; PULSE 80; RESP 18; TEMP 36.9; O2SAT 95
== END 2021-05-16 09:01 | disposition home or self-care (01) ==
PROVIDERS: Emergency Provider Emergency Medicine; PCP Family Medicine
DX: T78.40XA Allergy, unspecified, initial encounter (principal); K59.00 Constipation, unspecified; M54.50 Low back pain, unspecified; I48.20 Chronic atrial fibrillation, unspecified; I13.0 Hypertensive heart and chronic kidney disease with heart failure and stage 1 through stage 4 chronic kidney disease, or unspecified chronic kidney disease; E11.22 Type 2 diabetes mellitus with diabetic chronic kidney disease; N18.30 Chronic kidney disease, stage 3 unspecified; I50.30 Unspecified diastolic (congestive) heart failure; Z79.4 Long term (current) use of insulin; Z79.01 Long term (current) use of anticoagulants
CPT/HCPCS: 96372; 99283; A9270; J1170

== ENCOUNTER 2021-05-31 09:23 | Outpatient (CLI) | payer OTHER, SELFPAY ==
--- NOTE | ~2021-05-31 | CT_ITS ---
EXAMINATION: CT soft tissue neck w con DATE: 05/31/2021 11:27 INDICATION: Neck erythema. Sore neck. TECHNIQUE: Computed tomography (CT) of the neck was performed with 75 mL Omnipaque-350 intravenous co ntrast. Automated exposure control and iterative reconstruction technique were employed. The dose-maricel gth product was 616.63 mGy-cm. COMPARISON: CT cervical spine 10/11/2020 FINDINGS: There is mild atelectasis versus scarring in right lung upper lobe. There is bilateral supr aclavicular lymphadenopathy. A left supraclavicular node measures 16 x 15 mm. In the right neck, ther e is soft tissue and fat stranding with surgical clips and small focus of soft tissue gas between the sternocleidomastoid muscle and strap muscles and abutting the right common carotid artery with blurr ing of the fat planes. No drainable fluid collection. There is mild cervical spondylosis. IMPRESSION: 1. Surgical changes in right neck from recent transcatheter aortic valve replacement. 2. Mild bilateral supraclavicular lymphadenopathy, likely reactive. Reviewed, dictated and finalized at location A. ENT CRIMES DETECTIVE IMPRESSION: 1. Surgical changes in right neck from recent transcatheter aortic valve replac ement. 2. Mild bilateral supraclavicular lymphadenopathy, likely reactive.
== END 2021-05-31 09:24 | disposition home or self-care (01) ==
LOC: ANHIMG 09:32
PROVIDERS: PCP Family Medicine; Visit Provider Internal Medicine Cardiovascular Disease
DX: R59.1 Generalized enlarged lymph nodes (principal); L53.9 Erythematous condition, unspecified; Z95.2 Presence of prosthetic heart valve
CPT/HCPCS: 70491; Q9967

== ENCOUNTER 2021-07-17 09:15 | Outpatient (CLI) | payer OTHER, SELFPAY ==
--- NOTE | ~2021-07-17 | MM_ITS ---
EXAMINATION: MM screening florentino BI w tyrel HISTORY: Screening TECHNIQUE: Craniocaudal and mediolateral oblique 3-D tomosynthesis images were obtained and synthetic 2-D images were generated. CAD analysis was submitted and interpreted. COMPARISON: Comparison to multiple prior studies sequentially, with oldest reviewed study dated 06/27. BREAST PARENCHYMAL COMPOSITION: There are scattered areas of fibroglandular density. FINDINGS: There is no evidence of suspicious mass, calcification, or architectural distortion to sugg est malignancy in either breast. There has been no suspicious interval change. IMPRESSION: 1. No mammographic evidence of malignancy. 2. Recommend routine screening mammography in one year. BI-RADS Category 1: Negative Reviewed, dictated and finalized at location A. 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
== END 2021-07-17 09:16 | disposition home or self-care (01) ==
LOC: ANHIMG 09:18
PROVIDERS: PCP Family Medicine; Visit Provider Family Medicine
DX: Z12.31 Encounter for screening mammogram for malignant neoplasm of breast (principal)
CPT/HCPCS: 77063; 77067

== ENCOUNTER 2021-08-31 10:31 | Outpatient (CLI) | payer OTHER, SELFPAY ==
[2021-08-31 10:46] LABS: Basophils Percent Auto 0.6 % (0.2-1.2); Eosinophils Absolute Auto 0.4 K/mm3 (0-0.3); Eosinophils Percent Auto 5.9 % (0-4.4); Hemoglobin 10.5 g/dL (12.0-15.0); Immature Granulocyte Absolute 0.04 K/mm3 (0.00-0.031); Immature Granulocyte Percent A 0.6 % (0-0.5); Lymphocytes Absolute Auto 1.03 K/mm3 (0.9-3.2); Lymphocytes Percent Auto 15.6 % (18.3-44.2); Mean Corpuscular HGB Conc 30.9 g/dl (32-36); Mean Corpuscular Hemoglobin 32.4 pg (26-34); Mean Corpuscular Volume 104.9 fl (80-100); Monocytes Absolute Auto 0.4 K/mm3 (0.1-0.6); Monocytes Percent Auto 6.7 % (2.6-8.5); Neutrophils Absolute Auto 4.7 K/mm3 (1.3-6.7); Neutrophils Percent Auto 70.6 % (45.5-73.1); Platelet Count Result 171 k/mm3 (150-375); Red Blood Count 3.24 M/mm3 (4.2-5.4); Red Cell Distribution Width 14.1 % (11.5-14.5); White Blood Count 6.6 K/mm3 (4.5-10.0)
== END 2021-08-31 10:32 | disposition home or self-care (01) ==
LOC: ANHLAB 10:31
PROVIDERS: PCP Family Medicine; Visit Provider Internal Medicine Hematology & Oncology
DX: D64.9 Anemia, unspecified (principal)
CPT/HCPCS: 36415; 85025

== ENCOUNTER 2021-12-01 11:57 | Outpatient (CLI) | payer OTHER, SELFPAY ==
[2021-12-01 12:09] LABS: Basophils Percent Auto 0.5 % (0.2-1.2); Eosinophils Absolute Auto 0.3 K/mm3 (0-0.3); Eosinophils Percent Auto 4.2 % (0-4.4); Hemoglobin 10.9 g/dL (12.0-15.0); Immature Granulocyte Absolute 0.03 K/mm3 (0.00-0.031); Immature Granulocyte Percent A 0.4 % (0-0.5); Lymphocytes Absolute Auto 1.14 K/mm3 (0.9-3.2); Lymphocytes Percent Auto 15.1 % (18.3-44.2); Mean Corpuscular HGB Conc 31.1 g/dl (32-36); Mean Corpuscular Hemoglobin 31.1 pg (26-34); Mean Corpuscular Volume 99.7 fl (80-100); Mean Platelet Volume 9.7 fl (7.4-10.4); Monocytes Absolute Auto 0.4 K/mm3 (0.1-0.6); Monocytes Percent Auto 5.7 % (2.6-8.5); Neutrophils Absolute Auto 5.6 K/mm3 (1.3-6.7); Neutrophils Percent Auto 74.1 % (45.5-73.1); Platelet Count Result 202 k/mm3 (150-375); Red Blood Count 3.51 M/mm3 (4.2-5.4); Red Cell Distribution Width 13.5 % (11.5-14.5); White Blood Count 7.5 K/mm3 (4.5-10.0)
== END 2021-12-01 11:58 | disposition home or self-care (01) ==
PROVIDERS: PCP Family Medicine; Visit Provider Internal Medicine Hematology & Oncology
DX: D64.9 Anemia, unspecified (principal)
CPT/HCPCS: 36415; 85025

== ENCOUNTER 2022-07-12 13:52 | Outpatient (CLI) | payer OTHER, SELFPAY ==
[2022-07-12 14:08] LABS: Basophils Percent Auto 0.6 % (0.2-1.2); Eosinophils Absolute Auto 0.3 K/mm3 (0-0.3); Eosinophils Percent Auto 4.2 % (0-4.4); Hematocrit 32.8 % (37.0-47.0); Hemoglobin 10.3 g/dL (12.0-15.0); Immature Granulocyte Absolute 0.04 K/mm3 (0.00-0.031); Immature Granulocyte Percent A 0.6 % (0-0.5); Lymphocytes Absolute Auto 1.36 K/mm3 (0.9-3.2); Lymphocytes Percent Auto 20.2 % (18.3-44.2); Mean Corpuscular HGB Conc 31.4 g/dl (32-36); Mean Corpuscular Hemoglobin 30.8 pg (26-34); Mean Corpuscular Volume 98.2 fl (80-100); Mean Platelet Volume 9.5 fl (7.4-10.4); Monocytes Absolute Auto 0.5 K/mm3 (0.1-0.6); Neutrophils Absolute Auto 4.5 K/mm3 (1.3-6.7); Neutrophils Percent Auto 67.4 % (45.5-73.1); Platelet Count Result 218 k/mm3 (150-375); Red Blood Count 3.34 M/mm3 (4.2-5.4); Red Cell Distribution Width 14.3 % (11.5-14.5); White Blood Count 6.7 K/mm3 (4.5-10.0)
[2022-07-12 14:59] LABS: Alanine Aminotransferase 18 U/L (6-35); Albumin Level 3.8 g/dL (3.5-5.1); Alkaline Phosphatase 105 U/L (38-126); Anion Gap 9 mmol/L (8-16); Aspartate Amino Transferase 21 U/L (14-36); Bilirubin,Total 0.4 mg/dL (0.2-1.3); Blood Urea Nitrogen 43 mg/dL (7-17); Calcium 9.1 mg/dL (8.4-10.2); Carbon Dioxide 30 mmol/L (22-30); Chloride 103 mmol/L (98-107); Cholesterol 138 mg/dL (0-200); Estimated Glomerular Filt Rate 34; Glucose 197 mg/dL (65-110); HDL Direct 45 mg/dL; Potassium 3.7 mmol/L (3.4-5.0); Sodium 142 mmol/L (137-145); Triglycerides 149 mg/dL (<150)
[2022-07-12 15:09] LABS: LDL Cholesterol Direct 61 mg/dL
[2022-07-12 15:26] LABS: Iron 51 ug/dL (37-170)
[2022-07-12 15:33] LABS: Vitamin D 25 Hydroxy 48.6 ng/mL
[2022-07-12 15:49] LABS: Percent Iron Saturation 16 % (20-50)
[2022-07-12 18:10] LABS: Hemoglobin A1C 8.2 % (<5.7)
== END 2022-07-12 13:53 | disposition home or self-care (01) ==
LOC: ANHLAB 13:54
PROVIDERS: PCP Family Medicine; Referring Provider Internal Medicine Hematology & Oncology; Visit Provider Nurse Practitioner
DX: D64.9 Anemia, unspecified (principal); I10 Essential (primary) hypertension; E78.5 Hyperlipidemia, unspecified; E55.9 Vitamin D deficiency, unspecified; E53.8 Deficiency of other specified B group vitamins; E11.9 Type 2 diabetes mellitus without complications
CPT/HCPCS: 36415; 80053; 80061; 82306; 82607; 82728; 83036; 83540; 83550; 85025

== ENCOUNTER 2022-07-13 14:03 | Outpatient (CLI) | payer OTHER, SELFPAY ==
--- NOTE | ~2022-07-13 | XR_ITS ---
EXAM: XR thoracic spine 2V DATE: 07/13/2022 14:31 HISTORY: CHRONIC BACK PAIN, HX OF HERNIATED DISC . COMPARISON: X-ray cervical spine 11/10/2016. FINDINGS: The upper thoracic spine is poorly visualized. Stent or valve projecting over the heart. Ch olecystectomy clips. Thoracolumbar scoliosis. Vertebral body alignment intact. Vertebral body heights preserved. Multilevel moderate disc space narrowing and osteophytosis including bridging lateral ost eophytes. No traumatic malalignment or fracture. Visualized lung parenchyma is clear. Atherosclerotic aortic calcifications without evident aneurysm. IMPRESSION: Multilevel moderate degenerative disc disease. Reviewed, dictated and finalized at location K. 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
--- NOTE | ~2022-07-13 | XR_ITS ---
EXAM: XR lumbar spine 2-3V DATE: 07/13/2022 14:32 HISTORY: CHRONIC BACK PAIN, HX OF HERNIATED DISC . COMPARISON: 11/20/2015, CT chest abdomen and pelvis 10/11/2020. FINDINGS: Dystrophic soft tissue calcification overlying the right upper quadrant. Cholecystectomy cl ips. Lumbar scoliosis. 5 nonrib-bearing lumbar-type vertebral bodies. Pedicles intact. 3 mm anterolis thesis at L4-5. Vertebral body heights preserved. Multilevel disc space narrowing and osteophytosis, vacuum phenomenon at L2-3 and L5-S1. Moderate facet sclerosis and hypertrophy. No fracture or disloca tion. Atherosclerotic aortic calcification without evident aneurysm. IMPRESSION: Grade 1 anterolisthesis at L4-5. Multilevel lumbar degenerative disc disease, severe at L 2-3 and L5-S1. Multilevel moderate facet arthropathy. Reviewed, dictated and finalized at location K. GER MOLECULAR IMPRESSION: Grade 1 anterolisthesis at L4-5. Multilevel lumbar degenerative dis c disease, severe at L2-3 and L5-S1. Multilevel moderate facet arthropathy.
== END 2022-07-13 14:04 | disposition home or self-care (01) ==
PROVIDERS: PCP Family Medicine; Visit Provider Nurse Practitioner Family
DX: M51.36 Other intervertebral disc degeneration, lumbar region (principal); M51.37 Other intervertebral disc degeneration, lumbosacral region; M51.34 Other intervertebral disc degeneration, thoracic region
CPT/HCPCS: 72070; 72100

== ENCOUNTER → 2022-08-16 11:50 | Outpatient (CLI) | payer OTHER, SELFPAY ==
--- NOTE | ~2022-08-16 | XR_ITS ---
XR hand LT min 3V DATE: 08/16/2022 12:00 INDICATION: Fall. Fourth digit deformity. Can't straighten the digits. TECHNIQUE: 3 views COMPARISON: None FINDINGS: There is a small cortical avulsion fracture displaced approximately 1.6 mm proximally from the base of the distal phalanx of the fourth digit. No other fracture or dislocation is noted. No erosive change or chondrocalcinosis. There is polyarticular osteoarthritis including first carpometacarpal joint and multiple interphalang eal joints, especially the distal interphalangeal joint of the fifth digit. Osteopenia. IMPRESSION: Dorsal cortical avulsion fracture from the base of the distal phalanx of the fourth digit Polyarticular osteoarthritis Osteopenia Reviewed, dictated and finalized at location B. IMPRESSION: Dorsal cortical avulsion fracture from the base of the distal phala nx of the fourth digit Polyarticular osteoarthritis Osteopenia
== END ==
PROVIDERS: PCP Family Medicine; Visit Provider Nurse Practitioner
DX: M79.642 Pain in left hand (principal); S69.82XA Other specified injuries of left wrist, hand and finger(s), initial encounter; S62.635A Displaced fracture of distal phalanx of left ring finger, initial encounter for closed fracture; M19.042 Primary osteoarthritis, left hand; M85.842 Other specified disorders of bone density and structure, left hand
CPT/HCPCS: 73130

== ENCOUNTER 2022-08-31 17:34 | Emergency (ER) | payer OTHER, SELFPAY ==
--- NOTE | ~2022-08-31 | US_ITS ---
EXAMINATION: US venous doppler LE RT DATE: 08/31/2022 21:30 INDICATION: redness, swelling and pain . TECHNIQUE: Grayscale images without and with compression and Doppler images of the right lower extrem ity veins were obtained. COMPARISON: None FINDINGS: The right common femoral vein, profunda (deep) femoral vein, femoral vein, popliteal vein, peroneal v ein, posterior tibial veins, gastrocnemius vein, and greater saphenous vein are patent. IMPRESSION: 1. Patent right lower extremity veins. No evidence of deep venous thrombosis. Reviewed, dictated and finalized at location K.
[2022-08-31 17:47] VITALS: BP 127/70; PULSE 85; RESP 16; TEMP 36.4; O2SAT 96
--- NOTE | 2022-08-31 18:48 | PC.NURSE ---
Patient up to triage desk to notify this RN that she no longer wanted to wait to be seen. She stated I'm feeling much better now. I just live across the street and I will come back if I need to . Patient encouraged to stay but she declined. Encouraged to return with any new or worsening sx.
--- NOTE | 2022-08-31 18:49 | PC.NURSE ---
PIV that was placed in R AC by EMS removed prior to patient leaving the ED.
--- NOTE | 2022-08-31 23:24 | ED.GENADULT ---
HPI - General Adult General Chief complaint: Fall Stated complaint: Fall Time Seen by Provider: 08/31/22 22:32 History of Present Illness HPI narrative: this is a 72-year-old female on Xarelto for AFib presenting ED after a fall. she was trying to load a walker into a truck when she fell forward and landed on her knees. She did not strike her head, she did not lose consciousness. It was a purely mechanical fall. She came to emergency room to be evaluated for blood clots she has some bruising and swelling to her right lower extremity. Patient has been able to ambulate since the incident, she does not have knee pain. Related Data Home Medications Medication Instructions Recorded Confirmed pantoprazole 40 mg tablet,delayed 40 mg PO HS 10/11/20 08/17/22 release diltiazem HCl 120 mg 120 mg PO DAILY 11/12/20 08/17/22 capsule,extended release 24 hr latanoprost 0.005 % eye drops 1 drp EACH EYE HS 11/12/20 08/17/22 metoprolol succinate 50 mg 100 mg PO DAILY 11/12/20 08/17/22 tablet,extended release 24 hr cyanocobalamin (vitamin B-12) 1,000 mcg PO DAILY 05/16/21 08/17/22 1,000 mcg tablet fluticasone propionate 50 1 spray intranasal DAILY 05/16/21 08/17/22 mcg/actuation nasal spray,suspension rivaroxaban 20 mg tablet 20 mg PO DAILY 05/25/21 08/17/22 acetaminophen 500 mg tablet 500 mg PO QID 11/25/21 08/17/22 insulin aspart U-100 100 unit/mL See Rx Instructions subcut TID PRN 11/25/21 08/17/22 (3 mL) subcutaneous pen (Novolog FlexPen U-100 Insulin aspart) insulin glargine 100 unit/mL (3 20 unit subcut DAILY 11/25/21 08/17/22 mL) subcutaneous pen (Lantus Solostar U-100 Insulin) Allergies Allergy/AdvReac Type Severity Reaction Status Date / Time SUZE Inhibitors Allergy Mild Cough Verified 08/31/22 17:47 amoxicillin Allergy Mild Rash Verified 08/31/22 17:47 cat dander Allergy Mild Swelling Verified 08/31/22 17:47 of the Eye clavulanic acid Allergy Mild RASH Verified 08/31/22 17:47 adhesive AdvReac Mild BLISTERS Verified 08/31/22 17:47 PMFSH Past Medical History Medical History Acute diastolic heart failure Acute kidney injury superimposed on chronic kidney disease Adenomatous colon polyp Aortic stenosis (~2017) Severe aortic stenosis noted on echocardiogram in April 2020 Arthritis (~2009) Asthma Bipolar 1 disorder Calcification of left breast on mammography CHF exacerbation Chronic back pain CKD stage 3 due to type 2 diabetes mellitus (~05/2019) With history of temporary dialysis during lengthy hospitalization Colon, diverticulosis Diastolic congestive heart failure (~2018) Most recent echo April 2020. Mild LVH. EF 60%. Mild mitral valve regurgitation Diverticulitis Essential (primary) hypertension Frequent falls GERD without esophagitis Glaucoma Gout Hyperlipidemia (~2009) Hypertensive heart and chronic kidney disease with heart failure and stage 1 through stage 4 chronic kidney disease, or unspecified chronic kidney disease Intramuscular hematoma Lumbar spondylosis Major depressive disorder, recurrent, unspecified Moderate pulmonary hypertension Obstructive sleep apnea (~2014) Uses a CPAP at nighttime. Osteoporosis Peripheral neuropathy Positive colorectal cancer screening using Cologuard test Postmenopausal Pulmonary nodule Toe fracture lt great toe fx. Type 2 diabetes mellitus with diabetic nephropathy, with long-term current use of insulin Unspecified asthma with status asthmaticus Uterine cancer Status post hysterectomy. Vitamin D deficiency Surgical History Surgical History History of heart surgery 08/2021, heart valve replacement History of total bilateral knee replacement History of tracheostomy After lengthy hospitalization in 2014. Hx of bilateral cataract extraction Status post appendectomy Status post cataract extraction of both eyes with insertion
[2022-08-31] MEDS: HYDROcodone/acetaminophen (*CRX) 5-325 MG TABLET 1 TAB PO (23:54)
[2022-08-31] MEDS: TETANUS,DIPHTHERIA,AC PERTUSSIS ADULT (0.5 ML) BOOSTRIX IM (23:56)
[2022-09-01] MEDS: BACITRACIN ZINC OINTMENT 0.9 GRAM PACKET 1 PACKET TOPICAL
== END 2022-09-01 00:29 | disposition home or self-care (01) ==
PROVIDERS: Emergency Provider Emergency Medicine; PCP Family Medicine
DX: S80.11XA Contusion of right lower leg, initial encounter (principal); S80.02XA Contusion of left knee, initial encounter; S50.12XA Contusion of left forearm, initial encounter; S80.811A Abrasion, right lower leg, initial encounter; Z23 Encounter for immunization; E11.22 Type 2 diabetes mellitus with diabetic chronic kidney disease; N18.30 Chronic kidney disease, stage 3 unspecified; I13.0 Hypertensive heart and chronic kidney disease with heart failure and stage 1 through stage 4 chronic kidney disease, or unspecified chronic kidney disease; I50.9 Heart failure, unspecified; I35.0 Nonrheumatic aortic (valve) stenosis; J45.909 Unspecified asthma, uncomplicated; E11.39 Type 2 diabetes mellitus with other diabetic ophthalmic complication; H42 Glaucoma in diseases classified elsewhere; E11.42 Type 2 diabetes mellitus with diabetic polyneuropathy; E11.21 Type 2 diabetes mellitus with diabetic nephropathy; E78.5 Hyperlipidemia, unspecified; E55.9 Vitamin D deficiency, unspecified; K21.9 Gastro-esophageal reflux disease without esophagitis; G47.33 Obstructive sleep apnea (adult) (pediatric); M10.9 Gout, unspecified; M19.90 Unspecified osteoarthritis, unspecified site; M79.89 Other specified soft tissue disorders; Z85.42 Personal history of malignant neoplasm of other parts of uterus; Z90.710 Acquired absence of both cervix and uterus; Z95.2 Presence of prosthetic heart valve; Z96.653 Presence of artificial knee joint, bilateral; Z98.42 Cataract extraction status, left eye; Z98.41 Cataract extraction status, right eye; Z79.4 Long term (current) use of insulin; Z79.01 Long term (current) use of anticoagulants; W18.39XA Other fall on same level, initial encounter
CPT/HCPCS: 90471; 90715; 93971; 99283; 99284; A9270

== ENCOUNTER 2022-09-11 14:22 | Observation (INO) | payer OTHER, SELFPAY ==
[2022-09-11] VITALS (22 sets, daily range): BP systolic 108–158; BP diastolic 67–86; PULSE 56–132; RESP 12–27; TEMP 36.3–36.6; O2SAT 91–100
--- NOTE | ~2022-09-11 | XR_ITS ---
EXAMINATION: XR knee RT 3V DATE: 09/11/2022 16:18 INDICATION: Right knee pain and swelling TECHNIQUE: Anteroposterior, oblique and crosstable lateral views of the right knee were obtained COMPARISON: None. FINDINGS: Right total knee arthroplasty with patellar resurfacing which appears well seated in near-anatomic al ignment. No periprosthetic lucency to suggest loosening or infection. No fracture. Soft tissue swelli ng with subcutaneous edema anterior to the patella and proximal tibia. No definitive knee joint effus ion. IMPRESSION: 1. Expected appearance of a right total knee arthroplasty with no acute osseous mild to . 2. Nonspecific soft tissue tissue swelling with subcutaneous edema anterior to the right knee. Reviewed, dictated and finalized at location A.
--- NOTE | ~2022-09-11 | XR_ITS ---
EXAMINATION: XR chest 1V portable DATE: 09/11/2022 18:50 INDICATION: Atrial fibrillation with rapid ventricular response. Lower extremity swelling. TECHNIQUE: frontal view of the chest was obtained. COMPARISON: Chest radiograph and CT dated 11/11/2020 FINDINGS: Mildly decreased lung volumes. Cardiomegaly with pulmonary vascular congestion. No definitive airspac e opacities although sensitivity for subtle airspace disease is decreased due to patient body habitus . No pleural effusion or pneumothorax. Cardiac valve repair, likely aortic. IMPRESSION: 1. Cardiac medically with pulmonary vascular congestion. Reviewed, dictated and finalized at location A.
--- NOTE | ~2022-09-11 | US_ITS ---
EXAMINATION: US venous doppler LE RT DATE: 09/11/2022 15:56 INDICATION: Right lower limb swelling, erythema and pain TECHNIQUE: Grayscale ultrasound images without and with compression and Doppler ultrasound images of the right lower extremity veins were obtained. COMPARISON: None. FINDINGS: The visualized portions of right common femoral vein, profunda (deep) femoral vein, femoral vein, pop liteal vein, peroneal trunk, posterior tibial veins, peroneal veins, gastrocnemius vein and greater s aphenous vein outflow are patent. IMPRESSION: 1. No deep venous thrombosis in the right lower limb. Reviewed, dictated and finalized at location A.
--- NOTE | 2022-09-11 15:10 | ECG_ITS ---
Measurements Intervals [place] Rate: 120 P: NH: 0 QRS: -47 QRSD: 92 T: 78 QT: 333 QTc: 471 Interpretive Statements ATRIAL FIBRILLATION WITH RAPID VENTRICULAR RESPONSE LOW QRS VOLTAGE IN PRECORDIAL LEADS [QRS DEFLECTION < 1.0 mV IN CHEST LEADS] LEFT ANTERIOR FASCICULAR BLOCK [QRS AXIS <= -45, QR IN I, RS IN II] POSSIBLE ANTERIOR MYOCARDIAL INFARCTION , PROBABLY OLD [30 ms Q WAVE IN V3/V4, OR R < 0.2 mV IN V4] COMPARED TO ECG 11/11/2020 11:36:03 LEFT ANTERIOR FASCICULAR BLOCK NOW PRESENT Electronically Signed On 09-11-2022 22:19:22 CDT by Kylie Wagner M.D.
--- NOTE | 2022-09-11 15:13 | ED.FALL ---
HPI - Fall General Chief Complaint: Fall <Arielle De Oliveira PA-C - Last Filed: 09/11/22 18:29> Stated Complaint: fall week ago <Arielle De Oliveira PA-C - Last Filed: 09/11/22 18:29> Time Seen by Provider: 09/11/22 14:47 <Arielle De Oliveira PA-C - Last Filed: 09/11/22 18:29> History of Present Illness HPI Narrative: Patient is a 72-year-old female here for evaluation of right lower extremity pain and swelling after she sustained a mechanical fall 1 week ago. Patient states that she was ambulating in her usual state of health when she tripped in a bath mat, causing her to fall and land on her right knee. She was seen and evaluated in the ED at that time, had ultrasound of the leg that was negative and she was discharged home. Patient refused x-rays at that time. She returns today because her pain has become worse and she now has redness and swelling present across her calf. She has been taking gabapentin, Tylenol and [place] with moderate relief of her pain, she is able to ambulate she states it is painful. No fevers or chills, nausea or vomiting, chest pain or shortness of breath. <Arielle De Oliveira PA-C - Last Filed: 09/11/22 18:29> Related Data Home Medications: Home Medications Medication Instructions Recorded Confirmed pantoprazole 40 mg tablet,delayed 40 mg PO HS 10/11/20 09/11/22 release diltiazem HCl 120 mg 120 mg PO DAILY 11/12/20 09/11/22 capsule,extended release 24 hr latanoprost 0.005 % eye drops 1 drp EACH EYE HS 11/12/20 09/11/22 metoprolol succinate 50 mg 100 mg PO DAILY 11/12/20 09/11/22 tablet,extended release 24 hr cyanocobalamin (vitamin B-12) 1,000 mcg PO DAILY 05/16/21 09/11/22 1,000 mcg tablet fluticasone propionate 50 1 spray intranasal DAILY 05/16/21 09/11/22 mcg/actuation nasal spray,suspension rivaroxaban 20 mg tablet 20 mg PO DAILY 05/25/21 09/11/22 acetaminophen 500 mg tablet 500 mg PO QID 11/25/21 09/11/22 insulin aspart U-100 100 unit/mL See Rx Instructions subcut TID PRN 11/25/21 09/11/22 (3 mL) subcutaneous pen (Novolog Hyperglycemia FlexPen U-100 Insulin aspart) gabapentin 300 mg capsule 600 mg PO TID 09/11/22 09/11/22 <JULIAN Lucero Last Filed: 09/11/22 18:29> Allergies/Adverse Reactions: Allergies Allergy/AdvReac Type Severity Reaction Status Date / Time SUZE Inhibitors Allergy Mild Cough Verified 09/11/22 14:48 amoxicillin Allergy Mild Rash Verified 09/11/22 14:48 cat dander Allergy Mild Swelling Verified 09/11/22 14:48 of the Eye clavulanic acid Allergy Mild RASH Verified 09/11/22 14:48 adhesive AdvReac Mild BLISTERS Verified 09/11/22 14:48 <Arielle De Oliveira PA-C - Last Filed: 09/11/22 18:29> Review of Systems Review of Systems: Gen: Denies fevers or chills Eyes: Denies eye pain or visual change ENT: Denies congestion Respiratory: Denies shortness of breath or cough CV: Denies chest pain or palpitations GI: Denies abdominal pain nausea, emesis or diarrhea : denies burning, urgency, frequency or hematuria Musculoskeletal: Reports right lower extremity pain and swelling Neuro: Denies numbness, tingling, weakness or focal weakness Skin: Denies rash Except as documented, all other systems reviewed and negative <JULIAN Lucero Last Filed: 09/11/22 18:29> [facility] Past Medical History Medical History: Medical History Acute diastolic heart failure Acute kidney injury superimposed on chronic kidney disease Adenomatous colon polyp Aortic stenosis (~2017) Severe aortic stenosis noted on echocardiogram in April 2020 Arthritis (~2009) Asthma Bipolar 1 disorder Calcification of left breast on mammography CHF exacerbation Chronic back pain CKD stage 3 due to type 2 diabetes mellitus (~05/2019) With history of temporary dialysis during lengthy hospitalization Colon, diverticulosis Diastolic congestive heart failu
[2022-09-11] MEDS: ceFAZolin 1 GM/NS 50 ML 1 GM/50 ML BAG IVPB ×2 (16:58→23:22)
[2022-09-11 17:14] LABS: Anion Gap 8 mmol/L (8-16); Blood Urea Nitrogen 34 mg/dL (7-17); Calcium 8.7 mg/dL (8.4-10.2); Carbon Dioxide 33 mmol/L (22-30); Chloride 100 mmol/L (98-107); Estimated CRCL calculation 45 ml/min; Estimated Glomerular Filt Rate 37; Glucose 308 mg/dL (65-110); Potassium 3.7 mmol/L (3.4-5.0); Sodium 141 mmol/L (137-145)
[2022-09-11 17:15] LABS: Lactic Acid Reflex 1.3 mmol/L (0.7-2.0)
[2022-09-11 17:16] LABS: CRP 3.1 mg/dL (<1.0)
[2022-09-11 17:34] LABS: Erythrocyte Sedimentation Rate 118 mm/hr (0-20)
[2022-09-11 17:41] LABS: Basophils Percent Auto 0.5 % (0.2-1.2); Eosinophils Absolute Auto 0.3 K/mm3 (0-0.3); Eosinophils Percent Auto 4.3 % (0-4.4); Hematocrit 28.8 % (37.0-47.0); Immature Granulocyte Absolute 0.03 K/mm3 (0.00-0.031); Immature Granulocyte Percent A 0.5 % (0-0.5); Lymphocytes Absolute Auto 0.71 K/mm3 (0.9-3.2); Lymphocytes Percent Auto 11.8 % (18.3-44.2); Mean Corpuscular HGB Conc 31.3 g/dl (32-36); Mean Corpuscular Hemoglobin 31.6 pg (26-34); Mean Corpuscular Volume 101.1 fl (80-100); Monocytes Absolute Auto 0.4 K/mm3 (0.1-0.6); Neutrophils Absolute Auto 4.6 K/mm3 (1.3-6.7); Neutrophils Percent Auto 75.9 % (45.5-73.1); Platelet Count Result 229 k/mm3 (150-375); Red Blood Count 2.85 M/mm3 (4.2-5.4); Red Cell Distribution Width 14.6 % (11.5-14.5)
[2022-09-11] MEDS: HYDROcodone/acetaminophen (*CRX) 5-325 MG TABLET 1 TAB PO (17:52)
[2022-09-11] MEDS: GABAPENTIN 300 MG CAPSULE PO (17:52)
[2022-09-11 18:09] LABS: Glucose Point of Care 236 mg/dl (65-105)
[2022-09-11] MEDS: INSULIN ASPART (*BKC) 100 UNITS/ML 9 UNITS SUB-Q (18:09)
[2022-09-11] MEDS: METOPROLOL TARTRATE INJ 5 MG/5 ML VIAL IV PUSH (18:40)
[2022-09-11] MEDS: SODIUM CHLORIDE 0.9% IV 1,000 ML 999 ML IV CONT (18:40)
--- NOTE | 2022-09-11 19:09 | PC.NURSE ---
Report given to CHACORTA Timmons at this time.
[2022-09-11 19:21] LABS: INR 1.3; Prothrombin Time 15.9 Seconds (11.1-14.7)
--- NOTE | 2022-09-11 19:21 | PC.NURSE ---
Attempted Report at this time and told nurse will call back.
[2022-09-11 19:39] LABS: Partial Thromboplastin Time 32.8 SECONDS (22.3-36.8)
--- NOTE | 2022-09-11 19:56 | PM.IMHP ---
H&P: HPI History of Present Illness Date/Time: 09/11/22 19:56 Chief Complaint: Fall Narrative: This is a 72-year-old diabetic female patient who sustained a mechanical fall approximately 1 week ago. The patient has bruising to both of her lower extremities. The patient stated that she was ambulating in her usual state of health when she tripped over bath mat causing her to fall and she landed on her knees. The patient was evaluated in the emergency room at the time an ultrasound of her leg was found to be negative at that time she was returned back to home. Patient refuses x-rays. The patient has returned back to the emergency room today because of worsened pain swelling and redness to right lower extremity. The patient has been taking gabapentin, Tylenol and [place] with only moderate relief of discomfort. The patient stated that it is too painful to ambulate. She denies any fever chills or any chest pain or shortness of breath. Her H&H is 9.0 in 28.8 which is down from 10.3 and 32.82 months ago. Her ESR is 118. Her BUN is 84 creatinine is 1.4 which is her baseline. Her blood sugars 308 and repeat is 133. The patient was given Ancef insulin, Lopressor IV fluid, and Cardizem in the emergency room. Her heart rate was in the 1 teens and it is down to 56 now. Chest x-ray was read as cardiac medically with pulmonary vascular congestion. Knee x-ray was read as. Expected appearance of a right total knee arthroplasty with no acute osseous mild to . 2. Nonspecific soft tissue tissue swelling with subcutaneous edema anterior to the right knee. Venous Doppler was read as no deep vein thrombosis in the right lower extremity. The patient is being admitted to observation status on the date of service of 09/11/2022. Review of Systems Review of Systems: All systems reviewed & are unremarkable except as noted in HPI and below Constitutional: Constitutional: Reports as per HPI and Reports no additional constitutional complaints Eyes: Eyes: Reports as per HPI and Reports no additional eye complaints ENT: Reports system reviewed and no additional complaints, except as documented and Reports Normal hearing present Cardiovascular: Cardiovascular: Reports no additional cardiovascular complaints Respiratory: Respiratory: Reports no additional respiratory complaints and Reports no additional respiratory complaints Gastrointestinal: Gastrointestinal: Reports as per HPI and Reports no additional gastrointestinal complaints Musculoskeletal: Musculoskeletal: Reports no additional musculoskeletal complaints Integumentary/Breasts: Skin/Breast: Reports system reviewed and no additional complaints, except as docu and Reports as per HPI Neurologic: Reports system reviewed and no additional complaints, except as documented, Reports as per HPI and Reports Normal hearing present Psychiatric: Psychiatric: Reports no additional psychiatric complaints and Reports as per HPI Endocrine: Endocrine: Reports no additional endocrine complaints Hematologic/Lymphatic: Hematologic/Lymphatic: Reports no additional hematologic/lymphatic complaints Allergic/Immunologic: Allergic/Immunologic: Reports no additional allergic/immunologic complaints [facility] Past Medical History Medical History Acute diastolic heart failure Acute kidney injury superimposed on chronic kidney disease Adenomatous colon polyp Aortic stenosis (~2017) Severe aortic stenosis noted on echocardiogram in April 2020 Arthritis (~2009) Asthma Bipolar 1 disorder Calcification of left breast on mammography CHF exacerbation Chronic back pain CKD stage 3 due to type 2 diabetes mellitus (~05/2019) With history of temporary dialysis during lengthy hospitalization Colon, diverticulosis Diastolic congestive heart failure (~2018) Most recent echo April 2020. Mild LVH. EF 60%. Mild mitral valve regurgitation Diverticulitis Essential (primary) hyperte
--- NOTE | 2022-09-11 20:12 | ADMGEN ---
This patient, Laurel Rucker, was admitted to Medical Room 250-01. Patient/family oriented to hospital policies and general routines including ID bracelet, bed and alarms, visiting hours, pain management, procedures, bathroom and other care routines, personal items, smoking policy, room service/diet, and visiting hours. Information on how to activate the Rapid Response Team has been discussed. Patient/Family are encouraged to report perceived risks to care and to ask questions if they do not understand what they are told or what they should do.
[2022-09-11 21:19] LABS: Glucose Point of Care 133 mg/dl (65-105)
[2022-09-12] VITALS (10 sets, daily range): BP systolic 90–108; BP diastolic 45–63; PULSE 60–128; RESP 18; TEMP 36.4–37.3; O2SAT 92–100; BMI 47.7
[2022-09-12] MEDS: HYDROcodone/acetaminophen (*CRX) 7.5-325 MG TABLET 1 TAB PO ×3 (00:03→16:03)
[2022-09-12] MEDS: GABAPENTIN 300 MG CAPSULE 600 MG PO ×4 (00:05→16:03)
[2022-09-12] MEDS: MONTELUKAST SODIUM 10 MG TABLET PO ×2 (00:06→20:53)
[2022-09-12] MEDS: hydrALAZINE HCL 25 MG TABLET PO ×3 (00:06→13:30)
[2022-09-12] MEDS: PANTOPRAZOLE 40 MG TABLET PO ×2 (00:06→20:53)
[2022-09-12] MEDS: LATANOPROST 0.005% OP SOLN 2.5 ML BTL 1 DROP EACH EYE ×2 (00:06→20:53)
[2022-09-12] MEDS: metroNIDAZOLE 500 MG/ISO 100ML 500 MG/100 ML BAG 100 MG IVPB ×4 (00:07→22:01)
[2022-09-12] MEDS: ceFAZolin 1 GM/NS 50 ML 1 GM/50 ML BAG IVPB ×3 (06:27→21:00)
[2022-09-12 06:39] LABS: Basophils Percent Auto 0.6 % (0.2-1.2); Eosinophils Absolute Auto 0.3 K/mm3 (0-0.3); Eosinophils Percent Auto 5.8 % (0-4.4); Hematocrit 28.3 % (37.0-47.0); Hemoglobin 8.6 g/dL (12.0-15.0); Immature Granulocyte Absolute 0.02 K/mm3 (0.00-0.031); Immature Granulocyte Percent A 0.4 % (0-0.5); Lymphocytes Absolute Auto 0.85 K/mm3 (0.9-3.2); Lymphocytes Percent Auto 16.4 % (18.3-44.2); Mean Corpuscular HGB Conc 30.4 g/dl (32-36); Mean Corpuscular Hemoglobin 31.7 pg (26-34); Mean Corpuscular Volume 104.4 fl (80-100); Mean Platelet Volume 9.4 fl (7.4-10.4); Monocytes Absolute Auto 0.4 K/mm3 (0.1-0.6); Monocytes Percent Auto 6.7 % (2.6-8.5); Neutrophils Absolute Auto 3.6 K/mm3 (1.3-6.7); Neutrophils Percent Auto 70.1 % (45.5-73.1); Platelet Count Result 218 k/mm3 (150-375); Red Blood Count 2.71 M/mm3 (4.2-5.4); Red Cell Distribution Width 14.6 % (11.5-14.5); White Blood Count 5.2 K/mm3 (4.5-10.0)
[2022-09-12 07:15] LABS: Alanine Aminotransferase 15 U/L (6-35); Albumin Level 3.4 g/dL (3.5-5.1); Alkaline Phosphatase 67 U/L (38-126); Anion Gap 3 mmol/L (8-16); Aspartate Amino Transferase 19 U/L (14-36); Bilirubin,Total 0.5 mg/dL (0.2-1.3); Blood Urea Nitrogen 31 mg/dL (7-17); Calcium 8.5 mg/dL (8.4-10.2); Carbon Dioxide 34 mmol/L (22-30); Chloride 104 mmol/L (98-107); Estimated CRCL calculation 58 ml/min; Estimated Glomerular Filt Rate 49; Glucose 166 mg/dL (65-110); Potassium 3.9 mmol/L (3.4-5.0); Sodium 141 mmol/L (137-145)
[2022-09-12 07:20] LABS: Magnesium 2.2 mg/dL (1.6-2.3)
[2022-09-12] MEDS: METOPROLOL SUCCINATE EXT REL 50 MG TABCR 100 MG PO (07:56)
[2022-09-12] MEDS: RIVAROXABAN 20 MG TABLET PO (08:00)
[2022-09-12] MEDS: POTASSIUM CHLORIDE 20 MEQ TABLET.ER PO (08:01)
[2022-09-12] MEDS: FUROSEMIDE 40 MG TABLET PO ×2 (08:02→16:03)
[2022-09-12] MEDS: DULoxetine HCL 30 MG CAPSULE.DR BY MOUTH (08:02)
[2022-09-12] MEDS: CYANOCOBALAMIN 1,000 MCG TABLET 1000 MCG PO (08:02)
[2022-09-12] MEDS: FLUTICASONE PROPIONATE 0.05% NA SPR 16 GM BTL (*BKC) 1 SPRAY NASAL (08:03)
[2022-09-12] MEDS: ROSUVASTATIN 5 MG TABLET PO (08:03)
[2022-09-12] MEDS: INSULIN GLARGINE (*BKC) 100 UNITS/ML 20 UNITS SUB-Q (08:13)
[2022-09-12 08:19] LABS: Glucose Point of Care 171 mg/dl (65-105)
[2022-09-12 09:14] LABS: Hemoglobin A1C 7.2 % (<5.7)
--- NOTE | 2022-09-12 11:25 | PM.IMPN ---
Progress Note: A&P Assessment and Plan (1) Cellulitis: Qualifiers: Laterality: right Site of cellulitis: extremity Site of cellulitis of extremity: lower extremity Qualified Code(s): L03.115 - Cellulitis of right lower limb Code(s): L03.90 - Cellulitis, unspecified Status: Acute Assessment and Plan: As per diabetic cellulitis stewardship the patient was started on cefepime, Flagyl vancomycin. Blood cultures are pending. PT OT evaluate international logistics coordinator consult Redness has not moved beyond marker lines. (2) Diastolic congestive heart failure: Onset Date: ~2018 Qualifiers: Heart failure chronicity: chronic Qualified Code(s): I50.32 - Chronic diastolic (congestive) heart failure Code(s): I50.30 - Unspecified diastolic (congestive) heart failure Status: Chronic Assessment and Plan: Last echo was noted on 01/18/2022 with an EF of 73% and grade 3-4 diastolic dysfunction. Continue with metoprolol Continue with Lasix (3) Essential (primary) hypertension: Code(s): I10 - Essential (primary) hypertension Status: Chronic Assessment and Plan: Continue with metoprolol and the patient is on Cardizem for AFib Continue with hydralazine (4) Peripheral neuropathy: Qualifiers: Peripheral neuropathy type: polyneuropathy, unspecified Qualified Code(s): G62.9 - Polyneuropathy, unspecified Code(s): G62.9 - Polyneuropathy, unspecified Status: Chronic Assessment and Plan: Continue with gabapentin and duloxetine (5) Chronic kidney disease, stage 3: Onset Date: ~05/2019 Qualifiers: Chronic kidney disease stage 3 subtype: stage 3b (GFR 30-44) Qualified Code(s): N18.32 - Chronic kidney disease, stage 3b Code(s): N18.3 - Chronic kidney disease, stage 3 (moderate) Status: Chronic Assessment and Plan: The patient is at her base line avoid nephrotoxic medications. (6) Type 2 diabetes mellitus with diabetic neuropathy: Qualifiers: Diabetes mellitus termite treater insulin use: with termite treater use Qualified Code(s): E11.40 - Type 2 diabetes mellitus with diabetic neuropathy, unspecified; Z79.4 - penitentiary (current) use of insulin Code(s): E11.40 - Type 2 diabetes mellitus with diabetic neuropathy, unspecified Status: Chronic Assessment and Plan: Continue with Accu-Cheks AC and HS and hypoglycemic protocol Check A1c Continue with long-acting insulin glargine (7) Atrial fibrillation: Qualifiers: Atrial fibrillation type: unspecified chronic Qualified Code(s): I48.20 - Chronic atrial fibrillation, unspecified Code(s): I48.91 - Unspecified atrial fibrillation Status: Acute Assessment and Plan: Continue anticoagulation and telemetry. (8) Chronic pain of left knee: Code(s): M25.562 - Pain in left knee; G89.29 - Other chronic pain Status: Acute Assessment and Plan: Continue with [place], duloxetine, and gabapentin Subjective Date/time seen: 09/12/22 11:25 Interval history: Patient had a fall due to tripping on her Rollator. Patient has bilateral leg bruising right worse than left. Patient continues to have pain in her lower extremities. Patient also has bruise over right breast that she states is painful as well. Patient denies nausea, vomiting, body aches, chills. Review of Systems Review of Systems: All systems reviewed & are unremarkable except as noted in HPI and below Exam Narrative: GENERAL: Comfortable, no acute distress , morbidly obese HENMT: moist mucous membranes EYES: EOM intact b/l NECK: no lymphadenopathy RESPIRATORY: clear to auscultation CARDIO: RRR GI: soft, nontender, bowel sounds present SKIN: ecchymosis bilaterally to lower extremities right greater than left, ecchymosis on right breast; erythema on right lower extremity that i
[2022-09-12 11:54] LABS: Glucose Point of Care 248 mg/dl (65-105)
[2022-09-12] MEDS: INSULIN ASPART (*BKC) 100 UNITS/ML SUB-Q ×2 (11:57→17:30)
[2022-09-12 12:06] LABS: CRP 2.8 mg/dL (<1.0)
[2022-09-12 17:06] LABS: Glucose Point of Care 247 mg/dl (65-105)
[2022-09-12] MEDS: FERROUS SULFATE 324 MG TABLET PO (20:53)
[2022-09-13] VITALS (10 sets, daily range): BP systolic 106–132; BP diastolic 52–54; PULSE 58–107; RESP 18–20; TEMP 36.4–36.8; O2SAT 92–97
[2022-09-13 05:46] LABS: Hematocrit 26.4 % (37.0-47.0); Hemoglobin 8.1 g/dL (12.0-15.0); Mean Corpuscular HGB Conc 30.7 g/dl (32-36); Mean Corpuscular Hemoglobin 31.5 pg (26-34); Mean Corpuscular Volume 102.7 fl (80-100); Mean Platelet Volume 9.7 fl (7.4-10.4); Platelet Count Result 198 k/mm3 (150-375); Red Blood Count 2.57 M/mm3 (4.2-5.4); Red Cell Distribution Width 14.6 % (11.5-14.5); White Blood Count 6.2 K/mm3 (4.5-10.0)
[2022-09-13] MEDS: metroNIDAZOLE 500 MG/ISO 100ML 500 MG/100 ML BAG 100 MG IVPB ×3 (05:53→21:41)
[2022-09-13 06:00] LABS: Alanine Aminotransferase 14 U/L (6-35); Albumin Level 3.5 g/dL (3.5-5.1); Alkaline Phosphatase 72 U/L (38-126); Anion Gap 6 mmol/L (8-16); Aspartate Amino Transferase 22 U/L (14-36); Bilirubin,Total 0.5 mg/dL (0.2-1.3); Blood Urea Nitrogen 32 mg/dL (7-17); Calcium 8.3 mg/dL (8.4-10.2); Carbon Dioxide 31 mmol/L (22-30); Chloride 99 mmol/L (98-107); Estimated CRCL calculation 46 ml/min; Estimated Glomerular Filt Rate 37; Glucose 214 mg/dL (65-110); Potassium 3.7 mmol/L (3.4-5.0); Sodium 136 mmol/L (137-145)
[2022-09-13] MEDS: ceFAZolin 1 GM/NS 50 ML 1 GM/50 ML BAG IVPB ×3 (06:30→21:15)
[2022-09-13] MEDS: CYANOCOBALAMIN 1,000 MCG TABLET 1000 MCG PO (09:00)
[2022-09-13] MEDS: DULoxetine HCL 30 MG CAPSULE.DR BY MOUTH (09:01)
[2022-09-13] MEDS: GABAPENTIN 300 MG CAPSULE 600 MG PO ×3 (09:01→17:32)
[2022-09-13] MEDS: FLUTICASONE PROPIONATE 0.05% NA SPR 16 GM BTL (*BKC) 1 SPRAY NASAL (09:01)
[2022-09-13] MEDS: FUROSEMIDE 40 MG TABLET PO ×2 (09:01→17:32)
[2022-09-13] MEDS: INSULIN GLARGINE (*BKC) 100 UNITS/ML 20 UNITS SUB-Q (09:02)
[2022-09-13] MEDS: hydrALAZINE HCL 25 MG TABLET PO ×3 (09:02→17:32)
[2022-09-13 09:03] LABS: Glucose Point of Care 175 mg/dl (65-105)
[2022-09-13] MEDS: POTASSIUM CHLORIDE 20 MEQ TABLET.ER PO (09:03)
[2022-09-13] MEDS: METOPROLOL SUCCINATE EXT REL 50 MG TABCR 100 MG PO (09:03)
[2022-09-13] MEDS: ROSUVASTATIN 5 MG TABLET PO (09:04)
[2022-09-13] MEDS: RIVAROXABAN 20 MG TABLET PO (09:04)
--- NOTE | 2022-09-13 11:22 | PM.IMPN ---
Progress Note: A&P Assessment and Plan (1) Cellulitis: Qualifiers: Laterality: right Site of cellulitis: extremity Site of cellulitis of extremity: lower extremity Qualified Code(s): L03.115 - Cellulitis of right lower limb Code(s): L03.90 - Cellulitis, unspecified Status: Acute Assessment and Plan: As per diabetic cellulitis stewardship the patient was started on cefepime, Flagyl vancomycin. Blood cultures no growth to date PT OT evaluate student development coordinator consult Redness has not moved beyond marker lines. Seems to have improved CRP elevated at 3. Continue to trend (2) Diastolic congestive heart failure: Onset Date: ~2018 Qualifiers: Heart failure chronicity: chronic Qualified Code(s): I50.32 - Chronic diastolic (congestive) heart failure Code(s): I50.30 - Unspecified diastolic (congestive) heart failure Status: Chronic Assessment and Plan: Last echo was noted on 01/18/2022 with an EF of 73% and grade 3-4 diastolic dysfunction. Continue with metoprolol Continue with Lasix (3) Essential (primary) hypertension: Code(s): I10 - Essential (primary) hypertension Status: Chronic Assessment and Plan: Continue with metoprolol and the patient is on Cardizem for AFib Continue with hydralazine (4) Peripheral neuropathy: Qualifiers: Peripheral neuropathy type: polyneuropathy, unspecified Qualified Code(s): G62.9 - Polyneuropathy, unspecified Code(s): G62.9 - Polyneuropathy, unspecified Status: Chronic Assessment and Plan: Continue with gabapentin and duloxetine (5) Chronic kidney disease, stage 3: Onset Date: ~05/2019 Qualifiers: Chronic kidney disease stage 3 subtype: stage 3b (GFR 30-44) Qualified Code(s): N18.32 - Chronic kidney disease, stage 3b Code(s): N18.3 - Chronic kidney disease, stage 3 (moderate) Status: Chronic Assessment and Plan: The patient is at her base line, avoid nephrotoxic medications. (6) Type 2 diabetes mellitus with diabetic neuropathy: Qualifiers: Diabetes mellitus residential insulin use: with watermelon harvesting supervisor use Qualified Code(s): E11.40 - Type 2 diabetes mellitus with diabetic neuropathy, unspecified; Z79.4 - terminal makeup operator (current) use of insulin Code(s): E11.40 - Type 2 diabetes mellitus with diabetic neuropathy, unspecified Status: Chronic Assessment and Plan: Continue with Accu-Cheks AC and HS and hypoglycemic protocol Continue with long-acting insulin glargine (7) Atrial fibrillation: Qualifiers: Atrial fibrillation type: unspecified chronic Qualified Code(s): I48.20 - Chronic atrial fibrillation, unspecified Code(s): I48.91 - Unspecified atrial fibrillation Status: Acute Assessment and Plan: Continue anticoagulation and telemetry. (8) Chronic pain of left knee: Code(s): M25.562 - Pain in left knee; G89.29 - Other chronic pain Status: Acute Assessment and Plan: Continue with [place], duloxetine, and gabapentin Subjective Date/time seen: 09/13/22 11:22 Interval history: Patient sitting on the side of the bed stating that she still has pain in her right lower extremity more on the posterior side of the leg. Patient's leg is still bruised and I described to the patient that she will probably be sore for several days due to the extensive bruising. Her cellulitis does seem to have improved mildly. Would like to keep patient 1 more night to monitor the cellulitis. She does have a couple of scrapes/ scabs on the right ankle area that could be source of infection. If it continues to improve patient should be able to discharge tomorrow. Review of Systems Review of Systems: All systems reviewed & are unremarkable except as noted in HPI and below Exam Narrative: GENERAL: C
[2022-09-13 11:51] LABS: Glucose Point of Care 249 mg/dl (65-105)
[2022-09-13] MEDS: INSULIN ASPART (*BKC) 100 UNITS/ML SUB-Q (12:15)
[2022-09-13] MEDS: HYDROcodone/acetaminophen (*CRX) 7.5-325 MG TABLET 1 TAB PO ×2 (14:30→22:55)
[2022-09-13 17:09] LABS: Glucose Point of Care 177 mg/dl (65-105)
[2022-09-13] MEDS: FERROUS SULFATE 324 MG TABLET PO (19:59)
[2022-09-13] MEDS: LATANOPROST 0.005% OP SOLN 2.5 ML BTL 1 DROP EACH EYE (19:59)
[2022-09-13] MEDS: MONTELUKAST SODIUM 10 MG TABLET PO (19:59)
[2022-09-13] MEDS: PANTOPRAZOLE 40 MG TABLET PO (19:59)
[2022-09-13 20:35] LABS: Glucose Point of Care 202 mg/dl (65-105)
[2022-09-14] VITALS: PULSE 69
[2022-09-14 02:21] LABS: Vancomycin Trough 13.3 ug/mL (10.0-20.0)
[2022-09-14 04:00] VITALS: PULSE 71
[2022-09-14 04:59] VITALS: BP 111/63; PULSE 86; RESP 18; TEMP 36.9; O2SAT 93
[2022-09-14 05:26] LABS: Hematocrit 26.5 % (37.0-47.0); Hemoglobin 8.1 g/dL (12.0-15.0); Mean Corpuscular HGB Conc 30.6 g/dl (32-36); Mean Corpuscular Hemoglobin 30.9 pg (26-34); Mean Corpuscular Volume 101.1 fl (80-100); Platelet Count Result 209 k/mm3 (150-375); Red Blood Count 2.62 M/mm3 (4.2-5.4); Red Cell Distribution Width 14.6 % (11.5-14.5); White Blood Count 6.1 K/mm3 (4.5-10.0)
[2022-09-14] MEDS: ceFAZolin 1 GM/NS 50 ML 1 GM/50 ML BAG IVPB (05:26)
[2022-09-14 05:30] LABS: Alanine Aminotransferase 12 U/L (6-35); Albumin Level 3.4 g/dL (3.5-5.1); Alkaline Phosphatase 66 U/L (38-126); Anion Gap 3 mmol/L (8-16); Aspartate Amino Transferase 23 U/L (14-36); Bilirubin,Total 0.6 mg/dL (0.2-1.3); Blood Urea Nitrogen 29 mg/dL (7-17); CRP 2.6 mg/dL (<1.0); Calcium 8.4 mg/dL (8.4-10.2); Carbon Dioxide 34 mmol/L (22-30); Chloride 100 mmol/L (98-107); Estimated CRCL calculation 53 ml/min; Estimated Glomerular Filt Rate 44; Glucose 239 mg/dL (65-110); Potassium 3.7 mmol/L (3.4-5.0); Sodium 137 mmol/L (137-145)
[2022-09-14] MEDS: metroNIDAZOLE 500 MG/ISO 100ML 500 MG/100 ML BAG 100 MG IVPB (06:00)
[2022-09-14 08:00] VITALS: PULSE 76
[2022-09-14] MEDS: INSULIN ASPART (*BKC) 100 UNITS/ML SUB-Q (08:33)
[2022-09-14] MEDS: INSULIN GLARGINE (*BKC) 100 UNITS/ML 20 UNITS SUB-Q (08:33)
[2022-09-14 08:36] LABS: Glucose Point of Care 206 mg/dl (65-105)
[2022-09-14] MEDS: CYANOCOBALAMIN 1,000 MCG TABLET 1000 MCG PO (08:45)
[2022-09-14] MEDS: DULoxetine HCL 30 MG CAPSULE.DR BY MOUTH (08:45)
[2022-09-14] MEDS: ROSUVASTATIN 5 MG TABLET PO (08:45)
[2022-09-14 08:46] VITALS: PULSE 71
[2022-09-14] MEDS: POTASSIUM CHLORIDE 20 MEQ TABLET.ER PO (08:46)
[2022-09-14] MEDS: METOPROLOL SUCCINATE EXT REL 50 MG TABCR 100 MG PO (08:46)
[2022-09-14] MEDS: RIVAROXABAN 20 MG TABLET PO (08:47)
[2022-09-14] MEDS: GABAPENTIN 300 MG CAPSULE 600 MG PO ×2 (08:48→12:26)
[2022-09-14] MEDS: FUROSEMIDE 40 MG TABLET PO (08:48)
[2022-09-14] MEDS: FLUTICASONE PROPIONATE 0.05% NA SPR 16 GM BTL (*BKC) 1 SPRAY NASAL (08:48)
[2022-09-14] MEDS: HYDROcodone/acetaminophen (*CRX) 7.5-325 MG TABLET 1 TAB PO (10:00)
--- NOTE | 2022-09-14 11:20 | P.DS_ITS ---
DS: Admitting Diagnosis Discharge Date 09/14/22 Admitting Diagnosis Right lower extremity cellulitis DS: Discharge Diagnosis Discharge Diagnosis (1) Cellulitis: Qualifiers: Laterality: right Site of cellulitis: extremity Site of cellulitis of extremity: lower extremity Qualified Code(s): L03.115 - Cellulitis of right lower limb Code(s): L03.90 - Cellulitis, unspecified Status: Acute Assessment and Plan: As per diabetic cellulitis stewardship the patient was started on cefepime, Flagyl vancomycin. * Blood cultures no growth to date * PT OT evaluate * real estate services coordinator consult * Redness has not moved beyond marker lines. * Pain and redness have improved. * CRP trending down. (2) Diastolic congestive heart failure: Onset Date: ~2018 Qualifiers: Heart failure chronicity: chronic Qualified Code(s): I50.32 - Chronic diastolic (congestive) heart failure Code(s): I50.30 - Unspecified diastolic (congestive) heart failure Status: Chronic Assessment and Plan: Last echo was noted on 01/18/2022 with an EF of 73% and grade 3-4 diastolic dysfunction. * Continue with metoprolol * Continue with Lasix (3) Essential (primary) hypertension: Code(s): I10 - Essential (primary) hypertension Status: Chronic Assessment and Plan: * Continue with metoprolol and the patient is on Cardizem for AFib * Continue with hydralazine (4) Peripheral neuropathy: Qualifiers: Peripheral neuropathy type: polyneuropathy, unspecified Qualified Code(s): G62.9 - Polyneuropathy, unspecified Code(s): G62.9 - Polyneuropathy, unspecified Status: Chronic Assessment and Plan: * Continue with gabapentin and duloxetine (5) Chronic kidney disease, stage 3: Onset Date: ~05/2019 Qualifiers: Chronic kidney disease stage 3 subtype: stage 3b (GFR 30-44) Qualified Code(s): N18.32 - Chronic kidney disease, stage 3b Code(s): N18.3 - Chronic kidney disease, stage 3 (moderate) Status: Chronic Assessment and Plan: * The patient is at her base line, avoid nephrotoxic medications. (6) Type 2 diabetes mellitus with diabetic neuropathy: Qualifiers: Diabetes mellitus supervisor intermediates insulin use: with supervisor intermediates use Qualified Code(s): E11.40 - Type 2 diabetes mellitus with diabetic neuropathy, unspecified; Z79.4 - [facility] (current) use of insulin Code(s): E11.40 - Type 2 diabetes mellitus with diabetic neuropathy, unspecified Status: Chronic Assessment and Plan: Continue with Accu-Cheks AC and HS and hypoglycemic protocol * Continue with long-acting insulin glargine (7) Atrial fibrillation: Qualifiers: Atrial fibrillation type: unspecified chronic Qualified Code(s): I48.20 - Chronic atrial fibrillation, unspecified Code(s): I48.91 - Unspecified atrial fibrillation Status: Acute Assessment and Plan: Continue anticoagulation and telemetry. (8) Chronic pain of left knee: Code(s): M25.562 - Pain in left knee; G89.29 - Other chronic pain Status: Acute Assessment and Plan: Continue with [place], duloxetine, and gabapentin DS: Summary Hospital Course Reason for hospitalization: Right lower extremity cellulitis Hospital Course: This is a 72-year-old woman with
--- NOTE | 2022-09-14 11:20 | PM.DS ---
DS: Admitting Diagnosis Discharge Date 09/14/22 Admitting Diagnosis Right lower extremity cellulitis DS: Discharge Diagnosis Discharge Diagnosis (1) Cellulitis: Qualifiers: Laterality: right Site of cellulitis: extremity Site of cellulitis of extremity: lower extremity Qualified Code(s): L03.115 - Cellulitis of right lower limb Code(s): L03.90 - Cellulitis, unspecified Status: Acute Assessment and Plan: As per diabetic cellulitis stewardship the patient was started on cefepime, Flagyl vancomycin. Blood cultures no growth to date PT OT evaluate medical front desk coordinator consult Redness has not moved beyond marker lines. Pain and redness have improved. CRP trending down. (2) Diastolic congestive heart failure: Onset Date: ~2018 Qualifiers: Heart failure chronicity: chronic Qualified Code(s): I50.32 - Chronic diastolic (congestive) heart failure Code(s): I50.30 - Unspecified diastolic (congestive) heart failure Status: Chronic Assessment and Plan: Last echo was noted on 01/18/2022 with an EF of 73% and grade 3-4 diastolic dysfunction. Continue with metoprolol Continue with Lasix (3) Essential (primary) hypertension: Code(s): I10 - Essential (primary) hypertension Status: Chronic Assessment and Plan: Continue with metoprolol and the patient is on Cardizem for AFib Continue with hydralazine (4) Peripheral neuropathy: Qualifiers: Peripheral neuropathy type: polyneuropathy, unspecified Qualified Code(s): G62.9 - Polyneuropathy, unspecified Code(s): G62.9 - Polyneuropathy, unspecified Status: Chronic Assessment and Plan: Continue with gabapentin and duloxetine (5) Chronic kidney disease, stage 3: Onset Date: ~05/2019 Qualifiers: Chronic kidney disease stage 3 subtype: stage 3b (GFR 30-44) Qualified Code(s): N18.32 - Chronic kidney disease, stage 3b Code(s): N18.3 - Chronic kidney disease, stage 3 (moderate) Status: Chronic Assessment and Plan: The patient is at her base line, avoid nephrotoxic medications. (6) Type 2 diabetes mellitus with diabetic neuropathy: Qualifiers: Diabetes mellitus laborer marine terminal insulin use: with shelter use Qualified Code(s): E11.40 - Type 2 diabetes mellitus with diabetic neuropathy, unspecified; Z79.4 - long-term (current) use of insulin Code(s): E11.40 - Type 2 diabetes mellitus with diabetic neuropathy, unspecified Status: Chronic Assessment and Plan: Continue with Accu-Cheks AC and HS and hypoglycemic protocol Continue with long-acting insulin glargine (7) Atrial fibrillation: Qualifiers: Atrial fibrillation type: unspecified chronic Qualified Code(s): I48.20 - Chronic atrial fibrillation, unspecified Code(s): I48.91 - Unspecified atrial fibrillation Status: Acute Assessment and Plan: Continue anticoagulation and telemetry. (8) Chronic pain of left knee: Code(s): M25.562 - Pain in left knee; G89.29 - Other chronic pain Status: Acute Assessment and Plan: Continue with [place], duloxetine, and gabapentin DS: Summary Hospital Course Reason for hospitalization: Right lower extremity cellulitis Hospital Course: This is a 72-year-old woman with a past medical history of diabetes, AFib, congestive heart failure, CKD, hyperlipidemia, and hypertension that presented to the ED on 09/11/2022 due to a fall and worsening bilateral lower extremity pain. Patient had been using her Rollator and tripped over a bath mat causing her to fall onto her knees. Patient fell on 08/31/2022 and was evaluated in the ED and they did not find any blood clot or fracture at the time. patient does have worsening swelling and redness to the right lower extremity with scabbing on the lateral ankle. Concern
[2022-09-14 12:00] VITALS: PULSE 74
[2022-09-14 12:17] LABS: Glucose Point of Care 199 mg/dl (65-105)
[2022-09-14] MEDS: hydrALAZINE HCL 25 MG TABLET PO (12:26)
== END 2022-09-14 13:45 | disposition home or self-care (01) ==
LOC: ANHED 18:16 → ANH2MED 19:34
PROVIDERS: Internal Medicine Critical Care Medicine; Nurse Practitioner; Admitting Provider Family Medicine; Emergency Provider Physician Assistant; PCP Family Medicine; Visit Provider Internal Medicine
DX: L03.115 Cellulitis of right lower limb (principal); S80.811A Abrasion, right lower leg, initial encounter; W01.0XXA Fall on same level from slipping, tripping and stumbling without subsequent striking against object, initial encounter; I13.0 Hypertensive heart and chronic kidney disease with heart failure and stage 1 through stage 4 chronic kidney disease, or unspecified chronic kidney disease; E11.22 Type 2 diabetes mellitus with diabetic chronic kidney disease; N18.30 Chronic kidney disease, stage 3 unspecified; I50.30 Unspecified diastolic (congestive) heart failure; E11.42 Type 2 diabetes mellitus with diabetic polyneuropathy; R60.0 Localized edema; Z96.651 Presence of right artificial knee joint; J45.909 Unspecified asthma, uncomplicated; F31.9 Bipolar disorder, unspecified; G89.29 Other chronic pain; M25.562 Pain in left knee; M54.9 Dorsalgia, unspecified; H40.9 Unspecified glaucoma; M10.9 Gout, unspecified; E78.5 Hyperlipidemia, unspecified; M47.816 Spondylosis without myelopathy or radiculopathy, lumbar region; I48.20 Chronic atrial fibrillation, unspecified; I27.20 Pulmonary hypertension, unspecified; I44.4 Left anterior fascicular block; G47.33 Obstructive sleep apnea (adult) (pediatric); Z99.89 Dependence on other enabling machines and devices; M81.0 Age-related osteoporosis without current pathological fracture; E55.9 Vitamin D deficiency, unspecified; Z79.51 Long term (current) use of inhaled steroids; Z79.01 Long term (current) use of anticoagulants; Z79.1 Long term (current) use of non-steroidal anti-inflammatories (NSAID); Z79.4 Long term (current) use of insulin; Z79.899 Other long term (current) drug therapy; Z83.3 Family history of diabetes mellitus; Z82.49 Family history of ischemic heart disease and other diseases of the circulatory system
CPT/HCPCS: 36415; 71045; 73562; 80048; 80053; 80202; 82948; 83036; 83605; 83735; 84443; 85025; 85027; 85610; 85652; 85730; 86140; 87040; 93005; 93971; 96365; 96366; 96367; 97110; 97161; 97165; 99285; A9270; G0378; J0690; J1815; J3370; J7030

== ENCOUNTER 2022-10-02 21:54 | Observation (INO) | payer OTHER, SELFPAY ==
--- NOTE | ~2022-10-02 | CT_ITS ---
EXAMINATION: CT brain wo con DATE: 10/03/2022 00:33 INDICATION: Dizziness. TECHNIQUE: Computed tomography (CT) of the head was performed without intravenous contrast. The mA wa s adjusted according to patient size. Iterative reconstruction technique was employed. The dose-lengt h product was 983.67 mGy-cm. COMPARISON: Head CT 10/11/2020 FINDINGS: There are scattered areas of low attenuation in the cerebral white matter. There is no intr acranial hemorrhage, acute infarction, or abnormal intracranial mass lesion. The ventricles are derrick l in size. There are likely changes of ocular lens replacement surgeries. The paranasal sinuses are c lear. There are trace bilateral mastoid effusions. IMPRESSION: 1. Stable moderate nonspecific cerebral white matter disease, which likely represents chronic small v essel ischemic disease. Reviewed, dictated and finalized at location A. IMPRESSION: 1. Stable moderate nonspecific cerebral white matter disease, which likely repr esents chronic small vessel ischemic disease.
--- NOTE | ~2022-10-02 | XR_ITS ---
EXAMINATION: XR thoracic spine 2V DATE: 10/02/2022 22:44 INDICATION: Back pain. Fall. TECHNIQUE: 3 views of thoracic spine were obtained. COMPARISON: Thoracic spine radiographs 07/13/2022 FINDINGS: Bone alignment is normal. Vertebral body heights are normal. There is severely decreased di sc height from T7-T8 through T9-T10. There is moderately decreased disc height at T10-T11. There are endplate osteophytes at most levels. There is an aortic valve replacement. IMPRESSION: 1. Severe thoracic spondylosis. Reviewed, dictated and finalized at location A.
--- NOTE | ~2022-10-02 | XR_ITS ---
EXAMINATION: XR lumbar spine 2-3V DATE: 10/02/2022 22:44 INDICATION: Low back pain. Fall. TECHNIQUE: 3 views of lumbar spine were obtained. COMPARISON: Lumbar spine radiograph 07/13/2022 FINDINGS: There is 9 degrees dextrocurvature of lumbar spine. There is 3 mm anterolisthesis of L4 on L5. Vertebral body heights are normal. There is mildly decreased disc height at L2-L3, L3-L4, and L4- L5 and severely decreased disc height at L5-S1. There is multilevel facet joint osteoarthritis, sever e in lower lumbar spine. IMPRESSION: 1. Severe lumbar spondylosis. Reviewed, dictated and finalized at location A.
--- NOTE | ~2022-10-02 | XR_ITS ---
EXAMINATION: XR chest 2V DATE: 10/02/2022 22:43 INDICATION: Shortness of breath. TECHNIQUE: Frontal and lateral views of the chest were obtained. COMPARISON: Chest single view 09/11/2022, chest CT 11/11/2020 FINDINGS: There is chronic scarring in right upper lobe. There are mild airspace opacities in the low er lung zones. No pleural effusion or pneumothorax. Cardiomegaly is noted. There are changes of aorti c valve replacement. There is chronic anterior wedging of multiple vertebral bodies. IMPRESSION: 1. Mild airspace opacities in the lower lung zones, consistent with atelectasis versus pneumonia. 2. Cardiomegaly. Reviewed, dictated and finalized at location A.
[2022-10-02 21:54] VITALS: BP 110/49; PULSE 72; RESP 18; O2SAT 94
--- NOTE | 2022-10-02 22:10 | ECG_ITS ---
Measurements Intervals [place] Rate: 77 P: DE: 0 QRS: -27 QRSD: 101 T: 53 QT: 404 QTc: 459 Interpretive Statements ATRIAL FIBRILLATION LOW QRS VOLTAGE IN PRECORDIAL LEADS POOR R WAVE PROGRESSION, ANTERIOR LEADS ABNORMAL ECG COMPARED TO ECG 09/11/2022 15:22:25 HEART RATE HAS DECREASED Electronically Signed On 10-03-2022 7:59:54 CDT by Lucho Mederos D.O.
--- NOTE | 2022-10-02 22:42 | PC.NURSE ---
Patient in xray. Will complete EKG when she returns. Provider made aware of delay in EKG and labs
[2022-10-02 23:33] LABS: Basophils Absolute Auto 0.1 K/mm3 (0.0-0.1); Basophils Percent Auto 0.6 % (0.2-1.2); Eosinophils Absolute Auto 0.3 K/mm3 (0-0.3); Hematocrit 24.8 % (37.0-47.0); Hemoglobin 7.2 g/dL (12.0-15.0); Immature Granulocyte Absolute 0.03 K/mm3 (0.00-0.031); Immature Granulocyte Percent A 0.4 % (0-0.5); Lymphocytes Percent Auto 10.5 % (18.3-44.2); Mean Corpuscular Volume 110.2 fl (80-100); Mean Platelet Volume 10.3 fl (7.4-10.4); Monocytes Absolute Auto 0.6 K/mm3 (0.1-0.6); Monocytes Percent Auto 7.3 % (2.6-8.5); Neutrophils Absolute Auto 6.7 K/mm3 (1.3-6.7); Neutrophils Percent Auto 78.2 % (45.5-73.1); Platelet Count Result 189 k/mm3 (150-375); Red Blood Count 2.25 M/mm3 (4.2-5.4); Red Cell Distribution Width 18.9 % (11.5-14.5); White Blood Count 8.6 K/mm3 (4.5-10.0)
--- NOTE | 2022-10-02 23:37 | ED.GENADULT ---
HPI - General Adult General Chief complaint: Fall Stated complaint: Slid out of bed at 1400, no c/o Time Seen by Provider: 10/02/22 21:57 History of Present Illness HPI narrative: Patient 72-year-old female presents to emergency department with chief complaint of fall from bed. The patient reports that she went home laid on the bed and apparently rolled off of the bed onto the floor. Patient reports she got tangled up in the sheets and reports that due to her weight and weakness of her upper body strength she was unable to get herself up off the floor. The patient reports that she is also been dizzy which she describes as a lightheaded feeling and a rotational symptoms. The patient reports this has been ongoing for some time. Related Data Home Medications Medication Instructions Recorded Confirmed pantoprazole 40 mg tablet,delayed 40 mg PO HS 10/11/20 09/20/22 release diltiazem HCl 120 mg 120 mg PO DAILY 11/12/20 09/20/22 capsule,extended release 24 hr latanoprost 0.005 % eye drops 1 drp EACH EYE HS 11/12/20 09/20/22 metoprolol succinate 50 mg 100 mg PO DAILY 11/12/20 09/20/22 tablet,extended release 24 hr cyanocobalamin (vitamin B-12) 1,000 mcg PO DAILY 05/16/21 09/20/22 1,000 mcg tablet fluticasone propionate 50 1 spray intranasal DAILY 05/16/21 09/20/22 mcg/actuation nasal spray,suspension rivaroxaban 20 mg tablet 20 mg PO DAILY 05/25/21 09/20/22 acetaminophen 500 mg tablet 500 mg PO QID 11/25/21 09/20/22 insulin aspart U-100 100 unit/mL See Rx Instructions subcut TID PRN 11/25/21 09/20/22 (3 mL) subcutaneous pen (Novolog Hyperglycemia FlexPen U-100 Insulin aspart) gabapentin 300 mg capsule 600 mg PO TID 09/11/22 09/20/22 doxycycline hyclate 100 mg capsule 100 mg PO BID 09/20/22 09/20/22 Allergies Allergy/AdvReac Type Severity Reaction Status Date / Time SUZE Inhibitors Allergy Mild Cough Verified 10/03/22 01:17 amoxicillin Allergy Mild Rash Verified 10/03/22 01:17 cat dander Allergy Mild Swelling Verified 10/03/22 01:17 of the Eye clavulanic acid Allergy Mild RASH Verified 10/03/22 01:17 adhesive AdvReac Mild BLISTERS Verified 10/03/22 01:17 [facility] Past Medical History Medical History Acute diastolic heart failure Acute kidney injury superimposed on chronic kidney disease Adenomatous colon polyp Aortic stenosis (~2017) Severe aortic stenosis noted on echocardiogram in April 2020 Arthritis (~2009) Asthma Bipolar 1 disorder Calcification of left breast on mammography CHF exacerbation Chronic back pain CKD stage 3 due to type 2 diabetes mellitus (~05/2019) With history of temporary dialysis during lengthy hospitalization Colon, diverticulosis Diastolic congestive heart failure (~2018) Most recent echo April 2020. Mild LVH. EF 60%. Mild mitral valve regurgitation Diverticulitis Essential (primary) hypertension Frequent falls GERD without esophagitis Glaucoma Gout Hyperlipidemia (~2009) Hypertensive heart and chronic kidney disease with heart failure and stage 1 through stage 4 chronic kidney disease, or unspecified chronic kidney disease Intramuscular hematoma Lumbar spondylosis Major depressive disorder, recurrent, unspecified Moderate pulmonary hypertension Obstructive sleep apnea (~2014) Uses a CPAP at nighttime. Osteoporosis Peripheral neuropathy Positive colorectal cancer screening using Cologuard test Postmenopausal Pulmonary nodule Toe fracture lt great toe fx. Type 2 diabetes mellitus with diabetic nephropathy, with long-term current use of insulin Unspecified asthma with status asthmaticus Uterine cancer Status post hysterectomy. Vitamin D deficiency Surgical History Surgical History H/O colonoscopy with polypectomy History of heart surgery 08/2021, heart valve replacement History of total bilateral knee replacement History of tracheostomy After lengthy h
[2022-10-02 23:45] LABS: Lactic Acid Reflex 1.9 mmol/L (0.7-2.0)
[2022-10-02 23:45] LABS: Alanine Aminotransferase 21 U/L (6-35); Alkaline Phosphatase 73 U/L (38-126); Anion Gap 7 mmol/L (8-16); Aspartate Amino Transferase 27 U/L (14-36); Bilirubin,Total 0.6 mg/dL (0.2-1.3); Blood Urea Nitrogen 35 mg/dL (7-17); Carbon Dioxide 31 mmol/L (22-30); Chloride 104 mmol/L (98-107); Creatine Kinase 44 U/L (30-135); Estimated CRCL calculation 48 ml/min; Estimated Glomerular Filt Rate 40; Glucose 194 mg/dL (65-110); Magnesium 2.2 mg/dL (1.6-2.3); Potassium 3.4 mmol/L (3.4-5.0); Sodium 142 mmol/L (137-145)
[2022-10-02 23:55] LABS: NT Pro B Type Natriuretic Pept 3210 pg/mL (19.9-100); Troponin I < 0.012 ng/mL (0.000-0.034)
[2022-10-03] VITALS (18 sets, daily range): BP systolic 104–140; BP diastolic 45–84; PULSE 60–92; RESP 14–20; TEMP 36.1–36.6; O2SAT 93–99; BMI 47.0
[2022-10-03 00:16] LABS: Hypochromasia 1+ (NORMAL); Macrocytosis 1+ (NORMAL); Platelet Estimate Adequate (Adequate); Schistocytes None Seen (NORMAL)
[2022-10-03] MEDS: ACETAMINOPHEN 500 MG TABLET 1000 MG PO ×2 (01:24→09:31)
[2022-10-03] MEDS: GABAPENTIN 300 MG CAPSULE 600 MG PO ×4 (01:24→16:54)
[2022-10-03 01:57] LABS: Appearance Urine Clear (Clear); Bilirubin Urine Negative (Negative); Blood Urine Negative (Negative); Color Urine Yellow (Yellow); Glucose Urine UA Negative (Negative); Ketones Urine Negative (Negative); Leukocyte Esterase Ur 1+ LEU/UL (Negative); Nitrate Urine Negative (Negative); Protein Urine 1+ mg/dL (Negative); Specific Grav Ur 1.015 (1.001-1.035); Urobilinogen Urine 0.2 mg/dL (<2.0); pH Urine 5.5 (5.0-9.0)
[2022-10-03 02:02] LABS: Add Urine Microscopic? YES
[2022-10-03 02:03] LABS: RBC Urine 0-2 /hpf (0-2); WBC Urine 0-5 /hpf
[2022-10-03 03:42] LABS: Hemoglobin 7.3 g/dL (12.0-15.0)
[2022-10-03 04:03] LABS: Troponin I < 0.012 ng/mL (0.000-0.034)
--- NOTE | 2022-10-03 04:55 | PM.IMHP ---
H&P: HPI History of Present Illness Date/Time: 10/03/22 04:55 Chief Complaint: Fall Narrative: This is a 72-year-old female with past medical history significant for morbid obesity, atrial fibrillation rate control and anticoagulated, insulin-dependent diabetes mellitus, GERD, dyslipidemia. Patient presents to the emergency room after she had a fall when she rolled out of bed remain on the ground for several hours until she was finally able to crawl and get to the front door where she got help from her neighbors patient has been feeling dizzy and short of breath at minimal exertion for the last several weeks, denies any loss of consciousness syncope or near syncope, no chest pain, no leg swelling, no chest pain, no palpitations, no melena no coffee-ground emesis no bright red blood per rectum, no hematemesis. Preliminary workup was significant for hemoglobin of 7 patient is being admitted for further evaluation management and treatment will receive 1 unit of packed red blood cells. A chest x-ray was really was reported as: EXAMINATION: XR chest 2V DATE: 10/02/2022 22:43 INDICATION: Shortness of breath. TECHNIQUE: Frontal and lateral views of the chest were obtained. COMPARISON: Chest single view 09/11/2022, chest CT 11/11/2020 FINDINGS: There is chronic scarring in right upper lobe. There are mild airspace opacities in the lower lung zones. No pleural effusion or pneumothorax. Cardiomegaly is noted. There are changes of aortic valve replacement. There is chronic anterior wedging of multiple vertebral bodies. IMPRESSION: 1. Mild airspace opacities in the lower lung zones, consistent with atelectasis versus pneumonia. 2. Cardiomegaly. Review of Systems Review of Systems: Fall, dizziness, shortness of breath with minimal exertion Constitutional: Constitutional: Denies chills, Reports fatigue, Denies fever(s), Reports lethargy, Denies malaise, Denies night sweats, Denies poor appetite and Denies weakness Eyes: Eyes: Denies change in vision ENT: Denies dysphagia and Denies odynophagia Cardiovascular: Cardiovascular: Denies chest pain, Denies pedal edema, Denies edema, Denies leg edema, Reports lightheadedness, Denies radiating jaw, neck or arm pain, Reports palpitations and Reports dyspnea on exertion Respiratory: Respiratory: Denies chest congestion, Denies cough and Denies excessive phlegm production Gastrointestinal: Gastrointestinal: Denies abdominal pain, Denies melena, Denies hematochezia, Denies change in stool character, Denies coffee ground emesis, Denies dyspepsia, Denies diarrhea, Denies nausea and Denies vomiting Genitourinary: Genitourinary: Denies dysuria Musculoskeletal: Musculoskeletal: Reports back pain Integumentary/Breasts: Skin/Breast: Denies rash Neurologic: Denies focal weakness and Denies Sensory deficit (Neuro) Psychiatric: Psychiatric: Reports no additional psychiatric complaints and Reports as per HPI Endocrine: Endocrine: Denies cold intolerance, Denies flushing, Denies heat intolerance, Denies polyphagia, Denies polydipsia and Denies palpitations Hematologic/Lymphatic: Hematologic/Lymphatic: Reports no additional hematologic/lymphatic complaints and Reports as per HPI Allergic/Immunologic: Allergic/Immunologic: Reports no additional allergic/immunologic complaints and Reports as per HPI PMFSH Past Medical History Medical History (Updated 10/03/22 @ 20:09 by Delmer Hernandez MD) Acute diastolic heart failure Acute kidney injury superimposed on chronic kidney disease Acute on chronic anemia Adenomatous colon polyp Aortic stenosis (~2017) Severe aortic stenosis noted on echocardiogram in April 2020 Arthritis (~2009) Asthma Bipolar 1 disorder Calcification of left breast on mammography CHF exacerbation Chronic anticoagulation Chronic back pain CKD stage 3 due to type 2 diabetes mellitus (~05/2019) With history of temporary dialysis during lengthy hospitalization Colon, di
--- NOTE | 2022-10-03 05:36 | ADMGEN ---
This patient, Laurel Rucker, was admitted to [facility] Surg Room 324-02. Patient/family oriented to hospital policies and general routines including ID bracelet, bed and alarms, visiting hours, pain management, procedures, bathroom and other care routines, personal items, smoking policy, room service/diet, and visiting hours. Information on how to activate the Rapid Response Team has been discussed. Patient/Family are encouraged to report perceived risks to care and to ask questions if they do not understand what they are told or what they should do.
--- NOTE | 2022-10-03 05:40 | PC.NURSE ---
meds in med room
--- NOTE | 2022-10-03 05:43 | PC.NURSE ---
blood not ready yet
--- NOTE | 2022-10-03 07:54 | PM.IMPN ---
Progress Note: A&P Assessment and Plan (1) Symptomatic anemia: Code(s): D64.9 - Anemia, unspecified Status: Acute Assessment and Plan: Hgb 7.2 on admission and dropped 6.6. Transfused 1 unit PRBC. H&H q.6 Transfuse if <7 mg/dL. Serum iron low end of normal, TIBC higher end of normal and ferritin within normal limits. Iron saturation 11%. High immature reticulocyte count. B12 508. folate >20. Homocysteine and MMA pending. Check FOBT GI consult Supportive care (2) Fall: Qualifiers: Encounter type: initial encounter Qualified Code(s): W19.XXXA - Unspecified fall, initial encounter Code(s): W19.XXXA - Unspecified fall, initial encounter Status: Inactive Assessment and Plan: Fall precautions Ambulate with assistance PT/OT evaluation (3) Diastolic congestive heart failure: Onset Date: ~2018 Qualifiers: Heart failure chronicity: chronic Qualified Code(s): I50.32 - Chronic diastolic (congestive) heart failure Code(s): I50.30 - Unspecified diastolic (congestive) heart failure Status: Chronic Assessment and Plan: Monitor intake and output daily Appears euvolemic (4) Obstructive sleep apnea: Onset Date: ~2014 Code(s): G47.33 - Obstructive sleep apnea (adult) (pediatric) Status: Chronic Assessment and Plan: CPAP at nighttime (5) Morbid obesity: Onset Date: ~2009 Code(s): E66.01 - Morbid (severe) obesity due to excess calories Status: Chronic Assessment and Plan: 1800 calorie restricted diet (6) Chronic kidney disease, stage 3: Onset Date: ~05/2019 Qualifiers: Chronic kidney disease stage 3 subtype: stage 3b (GFR 30-44) Qualified Code(s): N18.32 - Chronic kidney disease, stage 3b Code(s): N18.3 - Chronic kidney disease, stage 3 (moderate) Status: Chronic Assessment and Plan: Continue to monitor BUN and creatinine. Appears at baseline. (7) Essential (primary) hypertension: Code(s): I10 - Essential (primary) hypertension Status: Chronic Assessment and Plan: Resume home meds with hold parameters. BP 122/74 off Patient with symptomatic anemia currently Continue to monitor (8) Peripheral neuropathy: Qualifiers: Peripheral neuropathy type: polyneuropathy, unspecified Qualified Code(s): G62.9 - Polyneuropathy, unspecified Code(s): G62.9 - Polyneuropathy, unspecified Status: Chronic Assessment and Plan: Chronic, continue duloxetine and gabapentin. (9) GERD without esophagitis: Code(s): K21.9 - Gastro-esophageal reflux disease without esophagitis Status: Acute Assessment and Plan: PPI IV BID given acute anemia. (10) Aortic stenosis: Onset Date: ~2017 Qualifiers: Cardiac valve disease etiology: etiology unspecified Qualified Code(s): I35.0 - Nonrheumatic aortic (valve) stenosis Code(s): I35.0 - Nonrheumatic aortic (valve) stenosis Status: Chronic Assessment and Plan: Follow-up in outpatient setting (11) Lumbar stenosis without neurogenic claudication: Code(s): M48.061 - Spinal stenosis, lumbar region without neurogenic claudication Status: Chronic Assessment and Plan: Referred to pain management service (12) Type 2 diabetes mellitus with diabetic nephropathy, with long-term current use of insulin: Code(s): E11.21 - Type 2 diabetes mellitus with diabetic nephropathy; Z79.4 - USP (current) use of insulin Status: Chronic Assessment and Plan: Accu-Cheks AC and HS Give half dose lantus tonight as she will be NPO. Hypoglycemia protocol. Check A1c (13) Atrial fibrillation: Qualifiers: Atrial fibrillation type: unspecified chronic Qualified Code(s): I48.20 - Chronic atrial fibrillation, unspecified Code(s): I48.91 - Unspecified atr
[2022-10-03 09:03] LABS: Immature Reticulocyte Fraction 30.9 % (3.0-15.9); Reticulocyte Hemoglobin Conten 31.7 pg (28.2-35.7); Reticulocyte Percent 8.34 % (0.7-4.3); Reticulocytes Absolute 0.17 M/mm3 (0.02-0.1)
[2022-10-03 09:04] LABS: Hemoglobin 6.6 g/dL (12.0-15.0)
[2022-10-03 09:28] LABS: Iron 38 ug/dL (37-170)
[2022-10-03] MEDS: METOPROLOL SUCCINATE EXT REL 50 MG TABCR PO (09:29)
[2022-10-03] MEDS: PANTOPRAZOLE SODIUM IV 40 MG VIAL IV PUSH ×2 (09:29→20:20)
[2022-10-03] MEDS: FERROUS SULFATE 324 MG TABLET PO (09:29)
[2022-10-03] MEDS: FLUTICASONE PROPIONATE 0.05% NA SPR 16 GM BTL (*BKC) 1 SPRAY NASAL (09:30)
[2022-10-03] MEDS: ROSUVASTATIN 5 MG TABLET PO (09:30)
[2022-10-03] MEDS: DULoxetine HCL 30 MG CAPSULE.DR BY MOUTH (09:30)
[2022-10-03] MEDS: SODIUM CHLORIDE 0.9% IV 250 ML 30 ML IV CONT (09:31)
[2022-10-03] MEDS: TUBING, BLOOD PLUM PUMP TUBING 1 EACH XX (09:32)
[2022-10-03 09:38] LABS: Percent Iron Saturation 11 % (20-50)
--- NOTE | 2022-10-03 09:40 | PCPTNOTE ---
Attempted to see for physical therapy evaluation, pt is getting a blood transfusion and was told to hold for now. Will continue to follow.
[2022-10-03 10:48] LABS: Folic Acid > 20.0 ng/mL (2.76->20)
[2022-10-03] MEDS: ACETAMINOPHEN 500 MG TABLET PO ×2 (12:33→16:54)
[2022-10-03 14:55] LABS: Hematocrit 28.1 % (37.0-47.0); Hemoglobin 8.3 g/dL (12.0-15.0)
[2022-10-03 18:37] LABS: Glucose Point of Care 258 mg/dl (65-105)
[2022-10-03] MEDS: INSULIN ASPART (*BKC) 100 UNITS/ML SUB-Q (18:37)
[2022-10-03 19:10] LABS: Hemoglobin A1C 5.8 % (<5.7)
--- NOTE | 2022-10-03 20:05 | WPDGICN ---
Assessment and Plan Assessment and plan (1) Acute on chronic anemia: Code(s): D64.9 - Anemia, unspecified Status: Acute Assessment and Plan: hb down to 6.6, no overt gib baseline hb 8-9 will monitor for signs of bleeding egd and colonoscopy probably on Tuesday (will await another day off xarelto) (2) Type 2 diabetes mellitus with diabetic nephropathy, with long-term current use of insulin: Code(s): E11.21 - Type 2 diabetes mellitus with diabetic nephropathy; Z79.4 - termite exterminator (current) use of insulin Status: Chronic (3) FOX (dyspnea on exertion): Code(s): R06.09 - Other forms of dyspnea Status: Acute Assessment and Plan: from symptomatic anemia (4) Accidental fall from bed: Qualifiers: Encounter type: initial encounter Qualified Code(s): W06.XXXA - Fall from bed, initial encounter Code(s): W06.XXXA - Fall from bed, initial encounter Status: Acute (5) Diastolic congestive heart failure: Onset Date: ~2018 Qualifiers: Heart failure chronicity: chronic Qualified Code(s): I50.32 - Chronic diastolic (congestive) heart failure Code(s): I50.30 - Unspecified diastolic (congestive) heart failure Status: Chronic (6) Morbid obesity: Onset Date: ~2009 Code(s): E66.01 - Morbid (severe) obesity due to excess calories Status: Chronic (7) CKD stage 3 due to type 2 diabetes mellitus: Onset Date: ~05/2019 Code(s): E11.22 - Type 2 diabetes mellitus with diabetic chronic kidney disease; N18.3 - Chronic kidney disease, stage 3 (moderate) Status: Chronic Assessment and Plan: creatinine 1.3 at baseline (8) Chronic anticoagulation: Code(s): Z79.01 - intermediate (current) use of anticoagulants Status: Acute Assessment and Plan: hold AC for now GI Consult Note Consult date/time: 10/03/22 20:05 Reason for consult: symptomatic anemia, fall HPI: Laurel Rucker is a 72 year old female with?history of morbid obesity, atrial fibrillation rate control on chronic anticoagulation, insulin-dependent diabetes mellitus, GERD. She came to the emergency room after she had a fall when she rolled out of bed remain on the ground for several hours until finally her neighbors helped her. She has been feeling dizzy and short of breath at minimal exertion for the last several weeks She denies any syncope, melena or signs of bleeding. She thinks that last colonoscopy about 3 years ago. Blood work was significant for hemoglobin of 7, she received packed red blood cells, comfortable now. Review of Systems Constitutional: Constitutional: Reports fatigue and Reports lethargy Eyes: Eyes: Denies blurry vision ENT: Reports Normal hearing present Cardiovascular: Cardiovascular: Denies chest pain Respiratory: Respiratory: Reports dyspnea on exertion Gastrointestinal: Gastrointestinal: Denies abdominal pain Genitourinary: Genitourinary: Denies flank pain Musculoskeletal: Musculoskeletal: Denies arthralgias Integumentary/Breasts: Skin/Breast: Denies rash Neurologic: Denies Abnormal speech present Psychiatric: Psychiatric: Denies behavioral changes [facility] Past Medical History Medical History (Updated 10/03/22 @ 20:09 by Delmer Hernandez MD) Acute diastolic heart failure Acute kidney injury superimposed on chronic kidney disease Acute on chronic anemia Adenomatous colon polyp Aortic stenosis (~2017) Severe aortic stenosis noted on echocardiogram in April 2020 Arthritis (~2009) Asthma Bipolar 1 disorder Calcification of left breast on mammography CHF exacerbation Chronic anticoagulation Chronic back pain CKD stage 3 due to type 2 diabetes mellitus (~05/2019) With history of temporary dialysis during lengthy hospitalization Colon, diverticulosis Diastolic congestive heart failure (~2018) Most recent echo April 2020. Mild LVH. EF 60%. Mild mitral valve regurgita
[2022-10-03] MEDS: LATANOPROST 0.005% OP SOLN 2.5 ML BTL 1 DROP EACH EYE (20:20)
[2022-10-03] MEDS: INSULIN GLARGINE (*BKC) 100 UNITS/ML 10 UNITS SUB-Q (20:20)
[2022-10-03 20:43] LABS: Glucose Point of Care 232 mg/dl (65-105)
[2022-10-03 21:10] LABS: Hematocrit 27.2 % (37.0-47.0); Hemoglobin 7.8 g/dL (12.0-15.0)
[2022-10-04] VITALS (8 sets, daily range): BP systolic 114–129; BP diastolic 52–76; PULSE 70–101; RESP 14–18; TEMP 35.7–36.9; O2SAT 93–97
[2022-10-04 01:25] LABS: Glucose Point of Care 184 mg/dl (65-105)
[2022-10-04 05:43] LABS: Glucose Point of Care 192 mg/dl (65-105)
--- NOTE | 2022-10-04 06:00 | ECHO_ITS ---
Patient Info Name: Laurel Rucker Age: 72 years : 1950 Gender: Female Ht: 67 in Wt: 300 lbs BSA: 2.61 m2 HR: 73 bpm Heart Rhythm: Atrial Fibrillation Technical Quality: Fair Exam Date: 10/04/2022 2:09 PM Exam Location: [facility] Patient Status: Inpatient Admit Date: 10/03/2022 Staff Ordering Physician: Christoph Cuevas MD Energy Consultant: Adwoa Brooks RDCS Attending Provider: Arlene Monae MD Referring Physician: Mason TRISTAN; Exam Type: CA echo dop color flow w con Study Info Indications R06.00 - Dyspnea, unspecified - ELEVATED BNP Complete two-dimensional, color flow and Doppler transthoracic echocardiogram is performed with contrast to opacify the left ventricle and to improve the deliniation of the left ventricle endocardial borders. Contrast/Agitated Saline Contrast/Ag. Saline: Definity Amount: 4.00 ml Administered By: Adwoa Brooks [facility] Summary 1. Normal left ventricular size with mild concentric hypertrophy. Good systolic function of all segments with no segmental wall motion abnormalities. Ejection fraction is 71%. Diastolic function is indeterminate. 2. Left atrial chamber dimension is severely enlarged. 3. Right atrial chamber dimension is mildly enlarged. 4. There is moderate mitral valve calcification verses annuloplasty repair. Mild mitral regurgitation. 5. There is mild tricuspid valve regurgitation. 6. Mild pulmonary hypertension, estimated pulmonary arterial systolic pressure is 48 mmHg. 7. Mild aortic stenosis with a peak transvalvular velocity of 2.6 m/sec, mean gradient 16 mmHg and area aortic valve area 1.6-2.0 cm2. 8. Aortic root calcification. 9. The underlying rhythm appears to be atrial fibrillation. 10. Technically difficult study, even using IV definity echo contrast. Left Ventricle Left ventricular chamber dimension is normal. Left ventricular systolic function is normal, estimated at 65-70%. There is mildly increased left ventricular wall thickness. Left ventricular septal wall motion is normal. The left ventricular diastolic function is indeterminate. Right Ventricle Right ventricular chamber dimension is normal. Right ventricular systolic function is normal. Left Atria Left atrial chamber dimension is severely enlarged. Right Atria Right atrial chamber dimension is mildly enlarged. Aortic Valve The aortic valve is not well visualized. There is no aortic valve sclerosis. There is mild aortic valve stenosis with a peak velocity of 280.00 cm/s, mean gradient of 11 mmHg, and aortic valve area of 1.62 cm2. There is no aortic valve regurgitation. Pulmonic Valve The pulmonic valve is normal. There is no pulmonic valve stenosis. There is no pulmonic regurgitation. Mitral Valve The mitral valve has normal leaflets. There is no mitral valve stenosis. There is mild mitral valve regurgitation. There is moderate mitral valve calcification verses annuloplasty repair. Mild mitral regurgitation. Tricuspid Valve The tricuspid valve leaflets are normal. There is no significant tricuspid valve stenosis. There is mild tricuspid valve regurgitation. Mild pulmonary hypertension, estimated pulmonary arterial systolic pressure is 48 mmHg. Pericardium/Pleural The pericardium appears normal. There is trivial pericardial effusion. Inferior Vena Cava Normal inferior vena cava with >50% collapse upon inspiration consistent with Empty right atrial pressure, 10 mmHg. Aorta The aortic root size at the sinus of Valsalva is normal. The prox ascending
[2022-10-04 06:29] LABS: Hematocrit 26.2 % (37.0-47.0); Hemoglobin 7.6 g/dL (12.0-15.0); Mean Corpuscular Hemoglobin 32.1 pg (26-34); Mean Corpuscular Volume 110.5 fl (80-100); Mean Platelet Volume 10.2 fl (7.4-10.4); Platelet Count Result 173 k/mm3 (150-375); Red Blood Count 2.37 M/mm3 (4.2-5.4); Red Cell Distribution Width 19.5 % (11.5-14.5)
[2022-10-04 06:34] LABS: INR 1.2; Prothrombin Time 15.6 Seconds (11.1-14.7)
[2022-10-04 06:35] LABS: Alanine Aminotransferase 17 U/L (6-35); Albumin Level 3.3 g/dL (3.5-5.1); Alkaline Phosphatase 55 U/L (38-126); Anion Gap 3 mmol/L (8-16); Aspartate Amino Transferase 21 U/L (14-36); Bilirubin,Total 0.8 mg/dL (0.2-1.3); Blood Urea Nitrogen 27 mg/dL (7-17); Calcium 8.5 mg/dL (8.4-10.2); Carbon Dioxide 34 mmol/L (22-30); Chloride 104 mmol/L (98-107); Estimated CRCL calculation 58 ml/min; Estimated Glomerular Filt Rate 49; Glucose 187 mg/dL (65-110); Potassium 3.4 mmol/L (3.4-5.0); Sodium 141 mmol/L (137-145)
[2022-10-04] MEDS: DULoxetine HCL 30 MG CAPSULE.DR BY MOUTH (09:45)
[2022-10-04] MEDS: ACETAMINOPHEN 500 MG TABLET 1000 MG PO (09:45)
[2022-10-04] MEDS: GABAPENTIN 300 MG CAPSULE 600 MG PO ×3 (09:45→17:44)
[2022-10-04] MEDS: METOPROLOL SUCCINATE EXT REL 50 MG TABCR PO (09:46)
[2022-10-04] MEDS: FERROUS SULFATE 324 MG TABLET PO (09:46)
[2022-10-04] MEDS: FLUTICASONE PROPIONATE 0.05% NA SPR 16 GM BTL (*BKC) 1 SPRAY NASAL (09:46)
[2022-10-04] MEDS: ROSUVASTATIN 5 MG TABLET PO (09:46)
[2022-10-04] MEDS: PANTOPRAZOLE SODIUM IV 40 MG VIAL IV PUSH ×2 (09:47→20:28)
--- NOTE | 2022-10-04 10:31 | PM.IMPN ---
Progress Note: A&P Assessment and Plan (1) Symptomatic anemia: Code(s): D64.9 - Anemia, unspecified Status: Acute Assessment and Plan: Hgb 7.2 on admission and dropped 6.6. Transfused 1 unit PRBC on 10/03/2022. Trend H/H. Transfuse if <7 mg/dL. Serum iron low end of normal, TIBC higher end of normal and ferritin within normal limits. Iron saturation 11%. High immature reticulocyte count. B12 508. folate >20. Homocysteine and MMA pending. Check FOBT GI consult and plan to do endoscopy on Tuesday Supportive care 10/04/22 hgb 7.6 today Holding anticoagulation until GI bleed ruled out (2) Fall: Qualifiers: Encounter type: initial encounter Qualified Code(s): W19.XXXA - Unspecified fall, initial encounter Code(s): W19.XXXA - Unspecified fall, initial encounter Status: Inactive Assessment and Plan: Fall precautions Ambulate with assistance PT/OT evaluation (3) Diastolic congestive heart failure: Onset Date: ~2018 Qualifiers: Heart failure chronicity: chronic Qualified Code(s): I50.32 - Chronic diastolic (congestive) heart failure Code(s): I50.30 - Unspecified diastolic (congestive) heart failure Status: Chronic Assessment and Plan: c/o dyspnea on admission. may be secondary to symptomatic anemia. Monitor intake and output daily Does not appear volume overloaded. Echocardiogram obtained in reading pending. (4) Obstructive sleep apnea: Onset Date: ~2014 Code(s): G47.33 - Obstructive sleep apnea (adult) (pediatric) Status: Chronic Assessment and Plan: CPAP at nighttime (5) Morbid obesity: Onset Date: ~2009 Code(s): E66.01 - Morbid (severe) obesity due to excess calories Status: Chronic Assessment and Plan: Recommend weight loss through lifestyle modification. (6) Chronic kidney disease, stage 3: Onset Date: ~05/2019 Qualifiers: Chronic kidney disease stage 3 subtype: stage 3b (GFR 30-44) Qualified Code(s): N18.32 - Chronic kidney disease, stage 3b Code(s): N18.3 - Chronic kidney disease, stage 3 (moderate) Status: Chronic Assessment and Plan: Continue to monitor BUN and creatinine. Appears at baseline. 10/04 stable. (7) Essential (primary) hypertension: Code(s): I10 - Essential (primary) hypertension Status: Chronic Assessment and Plan: Resume home meds with hold parameters. BP 122/74 off Patient with symptomatic anemia currently Continue to monitor (8) Peripheral neuropathy: Qualifiers: Peripheral neuropathy type: polyneuropathy, unspecified Qualified Code(s): G62.9 - Polyneuropathy, unspecified Code(s): G62.9 - Polyneuropathy, unspecified Status: Chronic Assessment and Plan: Chronic, continue duloxetine and gabapentin. (9) GERD without esophagitis: Code(s): K21.9 - Gastro-esophageal reflux disease without esophagitis Status: Acute Assessment and Plan: PPI IV BID given acute anemia. No epigastric pain. (10) Aortic stenosis: Onset Date: ~2017 Qualifiers: Cardiac valve disease etiology: etiology unspecified Qualified Code(s): I35.0 - Nonrheumatic aortic (valve) stenosis Code(s): I35.0 - Nonrheumatic aortic (valve) stenosis Status: Chronic Assessment and Plan: Follow-up in outpatient setting. Echocardiogram pending. (11) Lumbar stenosis without neurogenic claudication: Code(s): M48.061 - Spinal stenosis, lumbar region without neurogenic claudication Status: Chronic Assessment and Plan: Referred to pain management service (12) Type 2 diabetes mellitus with diabetic nephropathy, with long-term current use of insulin: Code(s): E11.21 - Type 2 diabetes mellitus with diabetic nephropathy; Z79.4 - termite treater (current) use of insulin Status: Chron
[2022-10-04 12:05] LABS: Glucose Point of Care 191 mg/dl (65-105)
[2022-10-04] MEDS: ACETAMINOPHEN 500 MG TABLET PO ×2 (13:33→17:44)
[2022-10-04] MEDS: PERFLUTREN LIPID MICROSPHERES 1.5 ML VIAL DILUTED TO 10 ML TOTAL VOLUME IV PUSH (14:00)
--- NOTE | 2022-10-04 15:33 | WPDGIPROGNO ---
Progress Note: A&P Assessment and Plan (1) Acute on chronic anemia: Code(s): D64.9 - Anemia, unspecified Status: Acute Assessment and Plan: will proceed with egd and colonoscopy no overt gib (2) Chronic anticoagulation: Code(s): Z79.01 - adobe block maker (current) use of anticoagulants Status: Acute Assessment and Plan: on hold for now (3) Type 2 diabetes mellitus with diabetic nephropathy, with long-term current use of insulin: Code(s): E11.21 - Type 2 diabetes mellitus with diabetic nephropathy; Z79.4 - residential (current) use of insulin Status: Chronic Assessment and Plan: ond meds (4) Accidental fall from bed: Qualifiers: Encounter type: initial encounter Qualified Code(s): W06.XXXA - Fall from bed, initial encounter Code(s): W06.XXXA - Fall from bed, initial encounter Status: Acute Subjective Date/time seen: 10/04/22 15:33 Interval history: no new events, doing ok Review of Systems Review of Systems: All systems reviewed & are unremarkable except as noted in HPI and below Exam Const: General: comfortable, no acute distress, well developed, alert and awake Nutritional Appearance: obese morbidly obese Orientation/consciousness: patient oriented x3 HENMT: Head: normal to inspection and normocephalic Ears: hearing grossly normal bilaterally Face/Nose/Sinus: normal facial exam Eyes: General: appearance normal, both eyes and all related structures Neck: Neck: full ROM Resp: Effort & Inspection: normal respiratory effort and able to speak in complete sentences Auscultation: clear to auscultation bilaterally Cardio: Jugular venous distension: no JVD Rate: regular rate Rhythm: regular rhythm GI: Inspection: Pannus present and obesity GI Palp: Yes Soft to palpation and Yes No hepatosplenomegaly present : General: Yes deferred Skin: Rashes: no rashes Neuro: General: patient oriented x3 Cognition (Neuro): normal cognition Speech: normal speech Motor exam (neuro): 5/5 motor strength present throughout Extrem: General: normal to inspection, full ROM and no pedal edema Objective Data Vital Signs Vital Signs: Vital Signs - 24 hr 10/03/22 16:00 10/03/22 21:24 10/03/22 20:00 Temperature 97.8 F Pulse Rate 81 92 73 Respiratory Rate 14 Blood Pressure 105/52 L Pulse Oximetry 94 Oxygen Delivery 10/04/22 00:00 10/04/22 05:28 10/04/22 04:00 Temperature 98.4 F Pulse Rate 101 H 77 83 Respiratory Rate 14 Blood Pressure 114/52 L Pulse Oximetry 93 Oxygen Delivery 10/04/22 08:00 10/04/22 08:00 10/04/22 12:00 Temperature Pulse Rate 77 77 Respiratory Rate Blood Pressure Pulse Oximetry Oxygen Delivery Room Air Intake/Output Intake/Output: Intake & Output 10/01/22 10/02/22 10/03/22 10/04/22 23:59 23:59 23:59 23:59 Intake Total 1290 1230 Balance 1290 1230 Meds/Results Medications: Active Medications Generic Name Dose Route Start Last Admin Trade Name Freq PRN Reason Stop Dose Admin Acetaminophen 1,000 mg 10/03/22 09:00 10/04/22 09:45 Acetaminophen 500 Mg Tablet PO 1,000 mg QAM KARAN Administration Acetaminophen 500 mg 10/03/22 12:00 10/04/22 13:33 Acetaminophen 500 Mg Tablet PO 500 mg 1200,1700 KARAN Administration Bisacodyl 20 mg 10/04/22 18:00 Bisacodyl 5 Mg Tablet Ec PO 10/04/22 18:01 ONCE ONE Dextrose 12.5 gm 10/03/22 17:10 Dextrose 50% 25 Gm/50 Ml Syringe IV PUSH PRN PRN Hypoglycemia Protocol Diltiazem HCl 120 mg 10/03/22 09:00 10/04/22 09:45 Diltiazem Hcl Cd 120 Mg Cap.Sa.24h PO 120 mg DAILY KARAN Administration Duloxetine HCl 30 mg 10/03/22 09:00 10/04/22 09:45 Duloxetine Hcl 30 Mg Capsule.Dr BY MOUTH 30 mg DAILY KARAN Administration Ferrous Sulfate 324 mg 10/03/22 09:00 10/04/22 09:46 Ferrous Sulfate 324 Mg Tablet PO 324 mg DAILY KARAN Administration Flutica
[2022-10-04 17:12] LABS: Glucose Point of Care 172 mg/dl (65-105)
[2022-10-04] MEDS: polyethylene glycoL 3350 238 GM BOTTLE PO (17:43)
[2022-10-04] MEDS: BISACODYL 5 MG TABLET EC 20 MG PO (17:46)
[2022-10-04] MEDS: LATANOPROST 0.005% OP SOLN 2.5 ML BTL 1 DROP EACH EYE (20:28)
[2022-10-04] MEDS: INSULIN GLARGINE (*BKC) 100 UNITS/ML 10 UNITS SUB-Q (20:28)
[2022-10-04 23:28] LABS: Glucose Point of Care 240 mg/dl (65-105)
[2022-10-05] VITALS (8 sets, daily range): BP systolic 128–148; BP diastolic 66–105; PULSE 61–110; RESP 20; TEMP 35.9–36.1; O2SAT 93–100
[2022-10-05 06:47] LABS: Hematocrit 26.9 % (37.0-47.0); Hemoglobin 7.9 g/dL (12.0-15.0); Mean Corpuscular HGB Conc 29.4 g/dl (32-36); Mean Corpuscular Hemoglobin 32.5 pg (26-34); Mean Corpuscular Volume 110.7 fl (80-100); Mean Platelet Volume 9.8 fl (7.4-10.4); Platelet Count Result 160 k/mm3 (150-375); Red Blood Count 2.43 M/mm3 (4.2-5.4); Red Cell Distribution Width 19.3 % (11.5-14.5); White Blood Count 5.5 K/mm3 (4.5-10.0)
--- NOTE | 2022-10-05 06:47 | PC.NURSE ---
Called Dr. Rios due to bowel prep being brown liquid at this time. Orders placed. Will let day shift RN know during report.
[2022-10-05 06:56] LABS: Glucose Point of Care 180 mg/dl (65-105)
[2022-10-05 07:01] LABS: Anion Gap 4 mmol/L (8-16); Blood Urea Nitrogen 22 mg/dL (7-17); Calcium 8.2 mg/dL (8.4-10.2); Carbon Dioxide 31 mmol/L (22-30); Chloride 104 mmol/L (98-107); Estimated CRCL calculation 63 ml/min; Estimated Glomerular Filt Rate 54; Glucose 177 mg/dL (65-110); Potassium 3.4 mmol/L (3.4-5.0); Sodium 139 mmol/L (137-145)
[2022-10-05] MEDS: polyethylene glycoL 3350 238 GM BOTTLE PO (08:24)
[2022-10-05] MEDS: ROSUVASTATIN 5 MG TABLET PO (08:25)
[2022-10-05] MEDS: GABAPENTIN 300 MG CAPSULE 600 MG PO ×3 (08:25→17:33)
[2022-10-05] MEDS: FERROUS SULFATE 324 MG TABLET PO (08:27)
[2022-10-05] MEDS: DULoxetine HCL 30 MG CAPSULE.DR BY MOUTH (08:27)
[2022-10-05] MEDS: ACETAMINOPHEN 500 MG TABLET 1000 MG PO (08:27)
[2022-10-05] MEDS: FLUTICASONE PROPIONATE 0.05% NA SPR 16 GM BTL (*BKC) 1 SPRAY NASAL (08:27)
[2022-10-05 09:02] LABS: Magnesium 2.2 mg/dL (1.6-2.3)
[2022-10-05] MEDS: METOPROLOL SUCCINATE EXT REL 25 MG TABCR 75 MG PO (09:04)
[2022-10-05] MEDS: POTASSIUM CHLORIDE 20 MEQ TABLET.ER 40 MEQ PO (09:05)
[2022-10-05 11:19] LABS: Glucose Point of Care 196 mg/dl (65-105)
[2022-10-05] MEDS: PANTOPRAZOLE SODIUM IV 40 MG VIAL IV PUSH (12:12)
--- NOTE | 2022-10-05 12:22 | PC.NURSE ---
To GI Lab per dylan at 1215, IV saline locked. Report given to CHACORTA Snow.
[2022-10-05 12:30] LABS: Glucose Point of Care 173 mg/dl (65-105)
[2022-10-05] MEDS: LACTATED RINGERS 1,000 ML 150 ML IV CONT (12:36)
--- NOTE | 2022-10-05 12:41 | WPDANESEPPF ---
Anes - Initial Pre Proc Eval Procedure: Operation Date: 10/05/22 13:30 Proposed Procedures p Esophagogastroduodenoscopy & Colonoscopy - Delmer Hernandez MD Date/Time: 10/05/22 12:41 Surgeon: Arlene Monae MD Pre Op Diagnosis: More Dyspnea/Fall From Bed Anemia Patient Data Age: 72 Gender: F Height: 1.7 m Weight: 136.3 kg Last Vital Signs Temp 96.7 F L 10/05/22 12:25 Pulse 61 10/05/22 12:25 Resp 20 10/05/22 12:25 BP 132/76 10/05/22 12:25 Pulse Ox 99 10/05/22 12:25 O2 Del Method Room Air 10/05/22 12:25 Allergies Allergy/AdvReac Type Severity Reaction Status Date / Time SUZE Inhibitors Allergy Mild Cough Verified 10/05/22 12:32 amoxicillin Allergy Mild Rash Verified 10/05/22 12:32 cat dander Allergy Mild Swelling Verified 10/05/22 12:32 of the Eye clavulanic acid Allergy Mild RASH Verified 10/05/22 12:32 adhesive AdvReac Mild BLISTERS Verified 10/05/22 12:32 Home Medications Medication Instructions Recorded Confirmed Type pantoprazole 40 mg tablet,delayed 40 mg PO HS 10/11/20 10/03/22 History release diltiazem HCl 120 mg 120 mg PO DAILY 11/12/20 10/03/22 History capsule,extended release 24 hr latanoprost 0.005 % eye drops 1 drp EACH EYE HS 11/12/20 10/03/22 History metoprolol succinate 50 mg 100 mg PO DAILY 11/12/20 10/03/22 History tablet,extended release 24 hr cyanocobalamin (vitamin B-12) 1,000 mcg PO DAILY 05/16/21 10/03/22 History 1,000 mcg tablet fluticasone propionate 50 1 spray intranasal DAILY 05/16/21 10/03/22 History mcg/actuation nasal spray,suspension rivaroxaban 20 mg tablet 20 mg PO DAILY 05/25/21 10/03/22 History acetaminophen 500 mg tablet 500 mg PO QID 11/25/21 10/05/22 History insulin aspart U-100 100 unit/mL See Rx Instructions subcut TID PRN 11/25/21 10/03/22 History (3 mL) subcutaneous pen (Novolog Hyperglycemia FlexPen U-100 Insulin aspart) montelukast 10 mg tablet 10 mg PO HS #90 tabs 03/25/22 10/03/22 Rx hydralazine 25 mg tablet 25 mg PO TID #270 tabs 04/05/22 10/03/22 Rx potassium chloride 20 mEq 20 meq PO DAILY #90 tabs 06/21/22 10/03/22 Rx tablet,extended release(part/cryst) (Klor-Con M) duloxetine 30 mg capsule,delayed See Rx Instructions .Route 08/02/22 10/03/22 Rx release .COMPLEX #90 caps ferrous sulfate 325 mg (65 mg 650 mg PO HS #90 tabs 08/17/22 10/03/22 Rx iron) tablet furosemide 40 mg tablet 40 mg PO BID #90 tabs 08/23/22 10/03/22 Rx rosuvastatin 5 mg tablet 5 mg PO DAILY #90 tabs 08/25/22 10/03/22 Rx gabapentin 300 mg capsule 600 mg PO TID 09/11/22 10/03/22 History insulin glargine 100 unit/mL (3 20 unit subcut HS 10/03/22 10/03/22 History mL) subcutaneous pen (Basaglar KwikPen U-100 Insulin) Laboratory Tests 10/04/22 10/04/22 10/05/22 16:58 23:26 06:41 WBC 5.5 K/mm3 (4.5-10.0) RBC 2.43 L M/mm3 (4.2-5.4) Hgb 7.9 L g/dL (12.0-15.0) Hct 26.9 L % (37.0-47.0) MCV 110.7 H fl (80-100) MCH 32.5 pg (26-34) MCHC 29.4 L g/dl (32-36) RDW 19.3 H % (11.5-14.5) Plt Count 160 k/mm3 (150-375) MPV 9.8 fl (7.4-10.4) Sodium 139 mmol/L (137-145) Potassium 3.4 mmol/L (3.4-5.0) Chloride 104 mmol/L (98-107) Carbon Dioxide 31 H mmol/L (22-30) Anion Gap 4 L mmol/L (8-16) BUN 22 H mg/dL (7-17) Creatinine 1.00 mg/dL (0.7-1.0) Estim Creat Clear Calc 63 ml/min Estimated GFR 54 L (59 - ) Glucose 177 H mg/dL (65-110) POC Capillary Glucose 172 H mg/dl 240 H mg/dl (65-105) (65-105) Calcium 8.2 L mg/dL (8.4-10.2) Magnesium 2.2 mg/dL (1.6-2.3) 10/05/22 10/05/22 10/05/22 06:48 11:16 12:26 WBC RBC Hgb Hct MCV MCH MCHC RDW Plt
--- NOTE | 2022-10-05 12:59 | SUR.OPER ---
EGD start 1303 end 1306, Colonoscopy start 1312.
--- NOTE | 2022-10-05 14:02 | PC.NURSE ---
Returned from GI Lab at 1400. Report received from CHACORTA Bateman.
[2022-10-05] MEDS: hydrALAZINE HCL 25 MG TABLET PO ×2 (14:33→17:33)
--- NOTE | 2022-10-05 14:49 | PM.DS ---
DS: Admitting Diagnosis Discharge Date 10/05/2022 Admitting Diagnosis Symptomatic anemia Ground level Fall Diastolic congestive heart failure, chronic Obstructive sleep apnea, chronic Morbid obesity, chronic Chronic kidney disease, stage 3 Essential (primary) hypertension Peripheral neuropathy, chronic Hypertensive heart and chronic kidney disease with heart failure and stage 1 through stage 4 chronic kidney disease, or unspecified chronic kidney disease, chronic Atrial fibrillation on chronic anticoagulation, chronic GERD without esophagitis Aortic stenosis, chronic Lumbar stenosis without neurogenic claudication, chronic Type 2 diabetes mellitus with diabetic nephropathy, with long-term current use of insulin DS: Discharge Diagnosis Discharge Diagnosis (1) Symptomatic anemia: Code(s): D64.9 - Anemia, unspecified Status: Acute Assessment and Plan: Hgb 7.2 on admission and dropped 6.6. Transfused 1 unit PRBC on 10/03/2022. Trend H/H. Transfuse if <7 mg/dL. Serum iron low end of normal, TIBC higher end of normal and ferritin within normal limits. Iron saturation 11%. High immature reticulocyte count. B12 508. folate >20. Homocysteine and MMA pending. FOBT ordered but unable to obtain due to stool mixed with urine GI consult and underwent EGD and colonoscopy. No ulcerations or AVMs noted to explain acute blood loss. 10/04/22 hgb 7.6 today Held anticoagulation on admission. Per GI, okay to resume 3 days following polypectomy. Repeat H/H in 2 weeks. (2) Gastritis: Qualifiers: Gastritis type: unspecified gastritis Chronicity: acute Gastritis bleeding: presence of bleeding unspecified Qualified Code(s): K29.00 - Acute gastritis without bleeding Code(s): K29.70 - Gastritis, unspecified, without bleeding Status: Acute Assessment and Plan: Noted on EGD. Moderate erythematous and edematous gastritis. Biopsies taken. Continue daily PPI per GI. (3) Fall: Qualifiers: Encounter type: initial encounter Qualified Code(s): W19.XXXA - Unspecified fall, initial encounter Code(s): W19.XXXA - Unspecified fall, initial encounter Status: Inactive Assessment and Plan: Admitted for ground level fall. Fall precautions PT/OT consulted and no additional therapy needed. (4) Diastolic congestive heart failure: Onset Date: ~2018 Qualifiers: Heart failure chronicity: chronic Qualified Code(s): I50.32 - Chronic diastolic (congestive) heart failure Code(s): I50.30 - Unspecified diastolic (congestive) heart failure Status: Chronic Assessment and Plan: c/o dyspnea on admission. may be secondary to symptomatic anemia. Does not appear to be in acute exacerbation. Chest x-ray negative. Monitor intake and output daily Does not appear volume overloaded. Echocardiogram mild LVH, EF 71%, indeterminant diastolic dysfunction. (2021 Echo with grade 3-4 diastolic dysfunction reported). (5) Obstructive sleep apnea: Onset Date: ~2014 Code(s): G47.33 - Obstructive sleep apnea (adult) (pediatric) Status: Chronic Assessment and Plan: CPAP at nighttime (6) Morbid obesity: Onset Date: ~2009 Code(s): E66.01 - Morbid (severe) obesity due to excess calories Status: Chronic Assessment and Plan: Recommend weight loss through lifestyle modification. (7) Chronic kidney disease, stage 3: Onset Date: ~05/2019 Qualifiers: Chronic kidney disease stage 3 subtype: stage 3b (GFR 30-44) Qualified Code(s): N18.32 - Chronic kidney disease, stage 3b Code(s): N18.3 - Chronic kidney disease, stage 3 (moderate) Status: Chronic Assessment and Plan: Continue to monitor BUN and creatinine. Appears at baseline. 10/04 stable. (8) Essential (primary) hypertension: Code(s): I10 - Essential (primary) hypertension Status: Chroni
[2022-10-05 17:31] LABS: Glucose Point of Care 292 mg/dl (65-105)
[2022-10-05] MEDS: ACETAMINOPHEN 500 MG TABLET PO (17:35)
[2022-10-05] MEDS: INSULIN ASPART (*BKC) 100 UNITS/ML SUB-Q (17:42)
[2022-10-06 19:52] LABS: Homocysteine 8.1 umol/L (<10.4)
[2022-10-07 11:33] LABS: Methylmalonic Acid 361 nmol/L (87-318)
== END 2022-10-05 18:20 | disposition home or self-care (01) ==
LOC: ANHED 10-03 02:58 → ANH3MEDSUR 10-04 15:33
PROVIDERS: Internal Medicine Gastroenterology; Nurse Practitioner Family; Admitting Provider Internal Medicine; Emergency Provider Emergency Medicine; PCP Family Medicine; Visit Provider Student in an Organized Health Care Education/Training Program
PROC: 0DJ08ZZ Inspection of Upper Intestinal Tract, Via Natural or Artificial Opening Endoscopic (ICD-10-PCS; CPT 43235; principal; 2022-10-05 13:30)
DX: D64.9 Anemia, unspecified (principal); K29.70 Gastritis, unspecified, without bleeding; D12.0 Benign neoplasm of cecum; D12.3 Benign neoplasm of transverse colon; K57.30 Diverticulosis of large intestine without perforation or abscess without bleeding; K64.4 Residual hemorrhoidal skin tags; W06.XXXA Fall from bed, initial encounter; I13.0 Hypertensive heart and chronic kidney disease with heart failure and stage 1 through stage 4 chronic kidney disease, or unspecified chronic kidney disease; E11.22 Type 2 diabetes mellitus with diabetic chronic kidney disease; N18.32 Chronic kidney disease, stage 3b; I50.32 Chronic diastolic (congestive) heart failure; R42 Dizziness and giddiness; J45.909 Unspecified asthma, uncomplicated; H40.9 Unspecified glaucoma; E11.21 Type 2 diabetes mellitus with diabetic nephropathy; M10.9 Gout, unspecified; E78.5 Hyperlipidemia, unspecified; M47.816 Spondylosis without myelopathy or radiculopathy, lumbar region; F32.9 Major depressive disorder, single episode, unspecified; G47.33 Obstructive sleep apnea (adult) (pediatric); K21.9 Gastro-esophageal reflux disease without esophagitis; I48.20 Chronic atrial fibrillation, unspecified; Z99.89 Dependence on other enabling machines and devices; M81.0 Age-related osteoporosis without current pathological fracture; R94.31 Abnormal electrocardiogram [ECG] [EKG]; E66.01 Morbid (severe) obesity due to excess calories; Z68.42 Body mass index [BMI] 45.0-49.9, adult; G62.9 Polyneuropathy, unspecified; E55.9 Vitamin D deficiency, unspecified; R06.00 Dyspnea, unspecified; Z79.51 Long term (current) use of inhaled steroids; Z79.01 Long term (current) use of anticoagulants; Z79.1 Long term (current) use of non-steroidal anti-inflammatories (NSAID); Z79.4 Long term (current) use of insulin; Z79.899 Other long term (current) drug therapy; R90.82 White matter disease, unspecified; I35.0 Nonrheumatic aortic (valve) stenosis; M48.061 Spinal stenosis, lumbar region without neurogenic claudication; M47.814 Spondylosis without myelopathy or radiculopathy, thoracic region; R79.89 Other specified abnormal findings of blood chemistry
CPT/HCPCS: 43239; 45385; 36415; 36430; 70450; 71046; 72070; 72100; 80048; 80053; 81001; 82550; 82607; 82728; 82746; 82948; 83036; 83090; 83540; 83550; 83605; 83735; 83880; 83921; 84484; 85014; 85018; 85025; 85027; 85046; 85610; 85730; 86850; 86900; 86901; 86923; 88305; 93005; 96374; 96375; 96376; 97161; 97165; 99285; A9270; C8929; C9113; G0378; J1815; J2704; J7050; J7120; P9016; Q9957

== ENCOUNTER 2022-10-14 01:55 | Day surgery (SDC) | payer OTHER, SELFPAY ==
[2022-10-13 16:17] VITALS: BMI 46.4
--- NOTE | ~2022-10-14 | BM_ITS ---
EXAMINATION: CCL bone marrow asp w bx diag DATE: 10/14/2022 10:04 INDICATION: Chronic anemia. TECHNIQUE: A time-out was performed to verify the patient's name, date of , and procedure to b e performed. The procedure including the risks, benefits, and alternatives was discussed with the pat ient. Risks discussed included bleeding and infection. The patient understood the risks and agreed to proceed. The skin overlying the left ilium was prepped and draped in usual sterile fashion. Anesth etic was administered with 1% lidocaine subcutaneously. 50 mcg fentanyl IV was given for pain control . An 11 gauge needle was inserted into the ilium with fluoroscopic guidance. Bone marrow was aspirat ed. An 8 gauge needle was then inserted into the ilium with fluoroscopic guidance. A core bone marrow biopsy was obtained. There were no immediate complications. Fluoroscopy exposure time was 0.0 minute s. The total number of images was 6. FINDINGS: Real-time fluoroscopy demonstrates a marker overlying the left posterior superior iliac spi ne. IMPRESSION: 1. Fluoro-guided bone marrow aspiration. 2. Fluoro-guided bone marrow core biopsy. Reviewed, dictated and finalized at location A.
[2022-10-14 07:55] VITALS: BP 151/88; PULSE 70; RESP 18; TEMP 36.9; O2SAT 94; BMI 46.6
[2022-10-14 07:59] LABS: Basophils Percent Auto 0.5 % (0.2-1.2); Eosinophils Absolute Auto 0.4 K/mm3 (0-0.3); Eosinophils Percent Auto 5.4 % (0-4.4); Hematocrit 32.2 % (37.0-47.0); Hemoglobin 9.4 g/dL (12.0-15.0); Immature Granulocyte Absolute 0.03 K/mm3 (0.00-0.031); Immature Granulocyte Percent A 0.5 % (0-0.5); Lymphocytes Absolute Auto 0.69 K/mm3 (0.9-3.2); Lymphocytes Percent Auto 10.6 % (18.3-44.2); Mean Corpuscular HGB Conc 29.2 g/dl (32-36); Mean Corpuscular Hemoglobin 31.8 pg (26-34); Mean Corpuscular Volume 108.8 fl (80-100); Mean Platelet Volume 10.2 fl (7.4-10.4); Monocytes Absolute Auto 0.5 K/mm3 (0.1-0.6); Platelet Count Result 199 k/mm3 (150-375); Red Blood Count 2.96 M/mm3 (4.2-5.4); Red Cell Distribution Width 16.5 % (11.5-14.5); White Blood Count 6.5 K/mm3 (4.5-10.0)
[2022-10-14 08:05] LABS: INR 1.1; Prothrombin Time 14.5 Seconds (11.1-14.7)
--- NOTE | 2022-10-14 08:50 | WPDMODSED ---
Moderate Sedation Note-Pt Data Patient Data Diagnosis: Chronic anemia. Present Complaint: Chronic anemia. Procedure to be performed/Plan: Fluoro-guided bone marrow biopsy of ilium. Allergies Allergy/AdvReac Type Severity Reaction Status Date / Time amoxicillin Allergy Mild Rash Verified 10/14/22 07:48 cat dander Allergy Mild Swelling Verified 10/14/22 07:48 of the Eye SUZE Inhibitors AdvReac Mild Cough Verified 10/14/22 07:48 adhesive AdvReac Mild BLISTERS Verified 10/14/22 07:48 other Allergy Intermediate Swelling Uncoded 10/14/22 07:51 Home Medications Medication Instructions Recorded Confirmed Type diltiazem HCl 120 mg 120 mg PO DAILY 11/12/20 10/13/22 History capsule,extended release 24 hr latanoprost 0.005 % eye drops 1 drp EACH EYE HS 11/12/20 10/13/22 History metoprolol succinate 50 mg 100 mg PO DAILY 11/12/20 10/13/22 History tablet,extended release 24 hr cyanocobalamin (vitamin B-12) 1,000 mcg PO DAILY 05/16/21 10/13/22 History 1,000 mcg tablet fluticasone propionate 50 1 spray intranasal DAILY PRN 05/16/21 10/13/22 History mcg/actuation nasal Congestion spray,suspension rivaroxaban 20 mg tablet 20 mg PO DAILY 05/25/21 10/13/22 History acetaminophen 500 mg tablet 500 mg PO QID 11/25/21 10/14/22 History insulin aspart U-100 100 unit/mL See Rx Instructions subcut TID PRN 11/25/21 10/13/22 History (3 mL) subcutaneous pen (Novolog Hyperglycemia FlexPen U-100 Insulin aspart) montelukast 10 mg tablet 10 mg PO HS #90 tabs 03/25/22 10/13/22 Rx hydralazine 25 mg tablet 25 mg PO TID #270 tabs 04/05/22 10/14/22 Rx ferrous sulfate 325 mg (65 mg 650 mg PO HS #90 tabs 08/17/22 10/13/22 Rx iron) tablet rosuvastatin 5 mg tablet 5 mg PO DAILY #90 tabs 08/25/22 10/13/22 Rx gabapentin 300 mg capsule 600 mg PO TID 09/11/22 10/14/22 History insulin glargine 100 unit/mL (3 20 unit subcut HS 10/03/22 10/13/22 History mL) subcutaneous pen (Basaglar KwikPen U-100 Insulin) pantoprazole 40 mg tablet,delayed 40 mg PO DAILY #30 tabs 10/05/22 10/13/22 Rx release duloxetine 30 mg capsule,delayed 30 mg PO DAILY 10/11/22 10/13/22 History release furosemide 40 mg tablet 40 mg PO BID 10/11/22 10/13/22 History ascorbic acid (vitamin C) 1,000 mg 1,000 mg PO DAILY 10/13/22 10/13/22 History tablet (Vitamin C) aspirin 81 mg tablet 81 mg PO DAILY 10/13/22 10/13/22 History calcium carbonate 500 mg calcium 500 mg PO DAILY 10/13/22 10/13/22 History (1,250 mg) tablet cholecalciferol (vitamin D3) 25 1,000 mcg PO DAILY 10/13/22 10/13/22 History mcg (1,000 unit) tablet (Vitamin D3) potassium chloride 20 mEq 20 meq PO DAILY 10/13/22 10/13/22 History tablet,extended release Sedation/Anesthesia: No previous sedation/anesthesia problems (including family history). [facility] Past Medical History Medical History (Updated 10/11/22 @ 16:38 by Amos Sarah MD) Adenomatous colon polyp Aortic stenosis (~2017) Severe aortic stenosis noted on echocardiogram in April 2020 Arthritis (~2009) Asthma Calcification of left breast on mammography Chronic anticoagulation Chronic back pain CKD stage 3 due to type 2 diabetes mellitus (~05/2019) With history of temporary dialysis during lengthy hospitalization Colon, diverticulosis Diastolic congestive heart failure (~2018) Most recent echo April 2020. Mild LVH. EF 60%. Mild mitral valve regurgitation Diverticulitis Essential (primary) hypertension External hemorrhoids without complication Frequent falls GAVE (gastric antral vascular ectasia) Noted on EGD 12/2020 GERD without esophagitis Glaucoma Gout Hyperlipidemia (~2009) Hypertensive heart and chronic kidney disease with heart failure and stage 1 through stage 4 chronic kidney disease, or unspecified chronic kidney disease Intramuscular hematoma Lumbar spondylosis Major depressive disorder, recurrent, unspecified Moderate pulmonary hypertension Obstructive sleep apnea (~2014) Uses a CP
[2022-10-14 09:30] VITALS: BP 149/75; RESP 18; O2SAT 92
[2022-10-14 09:45] VITALS: BP 110/88; PULSE 99; RESP 18; O2SAT 91
[2022-10-14 10:00] VITALS: BP 154/80; PULSE 103; RESP 18; O2SAT 91
[2022-10-14 10:15] VITALS: BP 144/77; PULSE 89; RESP 18; O2SAT 90
[2022-10-14 10:30] VITALS: BP 149/84; PULSE 91; RESP 20; O2SAT 92
== END 2022-10-14 10:40 | disposition home or self-care (01) ==
PROVIDERS: PCP Family Medicine; Referring Provider Internal Medicine Hematology & Oncology; Visit Provider Radiology Diagnostic Radiology
DX: D64.9 Anemia, unspecified (principal); E11.9 Type 2 diabetes mellitus without complications; Z79.4 Long term (current) use of insulin; I48.91 Unspecified atrial fibrillation; Z79.01 Long term (current) use of anticoagulants
CPT/HCPCS: 36415; 38222; 85025; 85610; 88184; 88185; 88305; 88311; 88313; 88341; 88342; 88364; 88365; J1642; J3010; J7040

== ENCOUNTER 2022-10-26 13:36 | Outpatient (CLI) | payer OTHER, SELFPAY ==
[2022-10-26 13:48] LABS: Basophils Absolute Auto 0.1 K/mm3 (0.0-0.1); Basophils Percent Auto 0.8 % (0.2-1.2); Eosinophils Absolute Auto 0.3 K/mm3 (0-0.3); Eosinophils Percent Auto 4.6 % (0-4.4); Hematocrit 35.2 % (37.0-47.0); Hemoglobin 10.6 g/dL (12.0-15.0); Immature Granulocyte Absolute 0.03 K/mm3 (0.00-0.031); Immature Granulocyte Percent A 0.5 % (0-0.5); Lymphocytes Absolute Auto 0.78 K/mm3 (0.9-3.2); Lymphocytes Percent Auto 12.2 % (18.3-44.2); Mean Corpuscular HGB Conc 30.1 g/dl (32-36); Mean Corpuscular Hemoglobin 31.6 pg (26-34); Mean Corpuscular Volume 105.1 fl (80-100); Mean Platelet Volume 9.4 fl (7.4-10.4); Monocytes Absolute Auto 0.4 K/mm3 (0.1-0.6); Monocytes Percent Auto 6.4 % (2.6-8.5); Neutrophils Absolute Auto 4.8 K/mm3 (1.3-6.7); Neutrophils Percent Auto 75.5 % (45.5-73.1); Platelet Count Result 219 k/mm3 (150-375); Red Blood Count 3.35 M/mm3 (4.2-5.4); Red Cell Distribution Width 15.2 % (11.5-14.5); White Blood Count 6.4 K/mm3 (4.5-10.0)
[2022-10-26 16:22] LABS: Iron 46 ug/dL (37-170)
[2022-10-26 16:40] LABS: Alanine Aminotransferase 21 U/L (6-35); Albumin Level 4.1 g/dL (3.5-5.1); Alkaline Phosphatase 79 U/L (38-126); Aspartate Amino Transferase 25 U/L (14-36); Bilirubin,Total 0.7 mg/dL (0.2-1.3); Blood Urea Nitrogen 23 mg/dL (7-17); Calcium 9.2 mg/dL (8.4-10.2); Carbon Dioxide > 40 mmol/L (22-30); Chloride 96 mmol/L (98-107); Estimated Glomerular Filt Rate 44; Glucose 147 mg/dL (65-110); Lactate Dehydrogenase 259 U/L (120-246); Percent Iron Saturation 12 % (20-50); Potassium 4.2 mmol/L (3.4-5.0); Sodium 141 mmol/L (137-145)
[2022-10-26 17:50] LABS: Folic Acid > 20.0 ng/mL (2.76->20)
[2022-10-29 09:44] LABS: Methylmalonic Acid 344 nmol/L (87-318)
== END 2022-10-26 13:37 | disposition home or self-care (01) ==
LOC: ANHLAB 13:38
PROVIDERS: PCP Family Medicine; Visit Provider Internal Medicine Hematology & Oncology
DX: D64.9 Anemia, unspecified (principal)
CPT/HCPCS: 36415; 80053; 82607; 82728; 82746; 83540; 83550; 83615; 83921; 85025

== ENCOUNTER 2022-11-03 11:34 | Outpatient (CLI) | payer OTHER, SELFPAY ==
[2022-11-03 19:24] LABS: Basophils Percent Auto 0.7 % (0.2-1.2); Eosinophils Absolute Auto 0.3 K/mm3 (0-0.3); Eosinophils Percent Auto 5.5 % (0-4.4); Hematocrit 33.6 % (37.0-47.0); Hemoglobin 9.7 g/dL (12.0-15.0); Immature Granulocyte Absolute 0.03 K/mm3 (0.00-0.031); Immature Granulocyte Percent A 0.5 % (0-0.5); Lymphocytes Absolute Auto 0.69 K/mm3 (0.9-3.2); Lymphocytes Percent Auto 11.5 % (18.3-44.2); Mean Corpuscular HGB Conc 28.9 g/dl (32-36); Mean Corpuscular Hemoglobin 30.6 pg (26-34); Mean Platelet Volume 10.7 fl (7.4-10.4); Monocytes Absolute Auto 0.3 K/mm3 (0.1-0.6); Monocytes Percent Auto 5.7 % (2.6-8.5); Neutrophils Absolute Auto 4.6 K/mm3 (1.3-6.7); Neutrophils Percent Auto 76.1 % (45.5-73.1); Platelet Count Result 195 k/mm3 (150-375); Red Blood Count 3.17 M/mm3 (4.2-5.4); Red Cell Distribution Width 15.2 % (11.5-14.5)
[2022-11-03 20:10] LABS: Hypochromasia 2+ (NORMAL); Ovalocytes 1+ (NORMAL); Platelet Estimate Adequate (Adequate); Stomatocytes 1+ (NORMAL)
[2022-11-03 20:11] LABS: Schistocytes None Seen (NORMAL)
[2022-11-03 21:28] LABS: Alanine Aminotransferase 17 U/L (6-35); Albumin Level 3.7 g/dL (3.5-5.1); Alkaline Phosphatase 61 U/L (38-126); Anion Gap 3 mmol/L (8-16); Aspartate Amino Transferase 47 U/L (14-36); Bilirubin,Total 0.7 mg/dL (0.2-1.3); Blood Urea Nitrogen 24 mg/dL (7-17); Calcium 8.7 mg/dL (8.4-10.2); Carbon Dioxide 39 mmol/L (22-30); Chloride 101 mmol/L (98-107); Estimated Glomerular Filt Rate 40; Glucose 138 mg/dL (65-110); Potassium 3.5 mmol/L (3.4-5.0); Sodium 143 mmol/L (137-145)
== END 2022-11-03 11:35 | disposition home or self-care (01) ==
LOC: ANHGOSHLAB 11:35
PROVIDERS: PCP Family Medicine; Visit Provider Nurse Practitioner Family
DX: I12.9 Hypertensive chronic kidney disease with stage 1 through stage 4 chronic kidney disease, or unspecified chronic kidney disease (principal); N18.30 Chronic kidney disease, stage 3 unspecified; R06.09 Other forms of dyspnea
CPT/HCPCS: 36415; 80053; 85025

== ENCOUNTER → 2022-11-03 11:48 | Outpatient (CLI) | payer OTHER, SELFPAY ==
--- NOTE | ~2022-11-03 | XR_ITS ---
Clinical Indication: Shortness of breath PA and lateral views of the chest: Comparison: 10/02/2022 Findings: Mild pulmonary haziness suggests mild pulmonary edema. Questionable nodule opacities right midlung.. Cardiomediastinal silhouette is stable, status post aortic valve replacement. Bones and so ft tissues are unremarkable. Impression: Probable mild pulmonary edema. Questionable small nodular opacity right midlung. Consider CT to confirm or exclude pulmonary nodule. Reviewed, dictated and finalized at [facility]. Impression: Probable mild pulmonary edema. Questionable small nodular opacity right midlung. Consider CT to confirm or exc lude pulmonary nodule.
== END ==
PROVIDERS: PCP Family Medicine; Visit Provider Nurse Practitioner Family
DX: R06.02 Shortness of breath (principal); R91.8 Other nonspecific abnormal finding of lung field
CPT/HCPCS: 71046

== ENCOUNTER 2022-11-16 14:04 | Outpatient (CLI) | payer OTHER, SELFPAY ==
--- NOTE | ~2022-11-16 | CT_ITS ---
CT Scan of the Chest without Contrast: Clinical Indication: Solitary pulmonary nodule Technique: Contiguous sections were acquired throughout the chest without intravenous contrast. Dose reduction technique was used on this scan by utilizing automated exposure control and iterative recon struction technique. The dose-length product (DLP) was 461.75 mGy-cm. COMPARISON: 11/11/2020 Findings: There is no evidence of any significant mediastinal, hilar or axillary lymphadenopathy. There are ath erosclerotic calcifications of the aorta and coronary arteries. Patient is status post aortic valve p lacement. [id number] pericardial effusion present. Small right pleural effusion present. No left pleural effusion. There is mild patchy groundglass opacity bilaterally in the lungs. There is superimposed atelectatic change or scarring at the right upper and middle lobes. Images through the upper abdomen reveal low-density right adrenal nodule, measuring 1.8 cm, compatibl e with adenoma.. Impression: Mild patchy groundglass opacity bilaterally in the lungs. Correlate for mild pulmonary edema, hypoven tilatory change, versus other pulmonary disease. Additional considerations could include hypersensiti vity pneumonitis, bronchiolitis. Stable probable scarring versus atelectatic change in the right middle and upper lobes. Small to moderate pericardial effusion. Small right pleural effusion. Right adrenal adenoma. Reviewed, dictated and finalized at location . Impression: Mild patchy groundglass opacity bilaterally in the lungs. Correlate for mild pu lmonary edema, hypoventilatory change, versus other pulmonary disease. Addition al considerations could include hypersensitivity pneumonitis, bronchiolitis. Stable probable scarring versus atelectatic change in the right middle and uppe r lobes. Small to moderate pericardial effusion. Small right pleural effusion. Right adrenal adenoma.
== END 2022-11-16 14:05 | disposition home or self-care (01) ==
PROVIDERS: PCP Family Medicine; Visit Provider Nurse Practitioner Family
DX: R91.1 Solitary pulmonary nodule (principal); R91.8 Other nonspecific abnormal finding of lung field; J90 Pleural effusion, not elsewhere classified; I31.39 Other pericardial effusion (noninflammatory); D35.01 Benign neoplasm of right adrenal gland
CPT/HCPCS: 71250

== ENCOUNTER 2022-12-05 10:41 | Inpatient (IN) | payer OTHER, SELFPAY ==
[2022-12-05] VITALS (37 sets, daily range): BP systolic 124–175; BP diastolic 73–130; PULSE 66–94; RESP 13–24; TEMP 36.3–36.9; O2SAT 88–100; BMI 47.0
--- NOTE | ~2022-12-05 | XR_ITS ---
EXAMINATION: XR chest 1V portable DATE: 12/05/2022 11:16 INDICATION: Shortness of breath. TECHNIQUE: A single frontal view of the chest was obtained. COMPARISON: Chest 2 views 11/03/2022, chest CT 12/16/2022 FINDINGS: There are chronic reticular opacities with architectural distortion right mid and lower jase g zones, consistent with scarring. There is a small right pleural effusion. No pneumothorax. There is enlargement of the cardiac silhouette. There are changes of aortic valve replacement. IMPRESSION: 1. Mild scarring in right mid and lower lung zones. 2. Small right pleural effusion. 3. Enlargement of the cardiac silhouette, likely a combination of pericardial effusion and cardiomega ly. Reviewed, dictated and finalized at location A. IMPRESSION: 1. Mild scarring in right mid and lower lung zones. 2. Small right pleural effusion. 3. Enlargement of the cardiac silhouette, likely a combination of pericardial e ffusion and cardiomegaly.
--- NOTE | 2022-12-05 10:43 | ECG_ITS ---
Measurements Intervals [place] Rate: 83 P: ME: 0 QRS: -30 QRSD: 110 T: 73 QT: 399 QTc: 471 Interpretive Statements ATRIAL FIBRILLATION LOW QRS VOLTAGE IN PRECORDIAL LEADS POOR R WAVE PROGRESSION, ANTERIOR LEADS BORDERLINE ST-T WAVE ABNORMALITY- HIGH LATERAL LEADS BASELINE ARTIFACT- I, III, AVF ABNORMAL ECG COMPARED TO ECG 10/02/2022 22:52:09 ST-T WAVE ABNORMALITY NOW PRESENT Electronically Signed On 12-05-2022 18:38:20 CDT by Lucho Mederos D.O.
[2022-12-05 11:02] LABS: Basophils Percent Auto 0.6 % (0.2-1.2); Eosinophils Absolute Auto 0.2 K/mm3 (0-0.3); Eosinophils Percent Auto 3.7 % (0-4.4); Hematocrit 31.9 % (37.0-47.0); Hemoglobin 9.6 g/dL (12.0-15.0); Immature Granulocyte Absolute 0.03 K/mm3 (0.00-0.031); Immature Granulocyte Percent A 0.5 % (0-0.5); Lymphocytes Absolute Auto 0.61 K/mm3 (0.9-3.2); Lymphocytes Percent Auto 9.3 % (18.3-44.2); Mean Corpuscular HGB Conc 30.1 g/dl (32-36); Mean Corpuscular Hemoglobin 31.5 pg (26-34); Mean Corpuscular Volume 104.6 fl (80-100); Mean Platelet Volume 9.9 fl (7.4-10.4); Monocytes Absolute Auto 0.4 K/mm3 (0.1-0.6); Monocytes Percent Auto 5.8 % (2.6-8.5); Neutrophils Absolute Auto 5.3 K/mm3 (1.3-6.7); Neutrophils Percent Auto 80.1 % (45.5-73.1); Platelet Count Result 189 k/mm3 (150-375); Red Blood Count 3.05 M/mm3 (4.2-5.4); Red Cell Distribution Width 15.1 % (11.5-14.5); White Blood Count 6.6 K/mm3 (4.5-10.0)
[2022-12-05 11:21] LABS: Alanine Aminotransferase 21 U/L (6-35); Albumin Level 3.9 g/dL (3.5-5.1); Alkaline Phosphatase 79 U/L (38-126); Anion Gap 1 mmol/L (8-16); Aspartate Amino Transferase 34 U/L (14-36); Bilirubin,Total 0.9 mg/dL (0.2-1.3); Blood Urea Nitrogen 30 mg/dL (7-17); Calcium 9.1 mg/dL (8.4-10.2); Carbon Dioxide 37 mmol/L (22-30); Chloride 99 mmol/L (98-107); Estimated CRCL calculation 53 ml/min; Estimated Glomerular Filt Rate 44; Glucose 199 mg/dL (65-110); Potassium 3.6 mmol/L (3.4-5.0); Sodium 137 mmol/L (137-145)
--- NOTE | 2022-12-05 13:07 | ED.SOB ---
HPI - SOB/Dyspnea General Chief Complaint: Shortness of Breath/Dyspnea Stated Complaint: palpitations, SOB Time Seen by Provider: 12/05/22 12:05 History of Present Illness HPI Narrative: Patient is a 72-year-old female with a history of CHF, CKD, A-fib on Eliquis, hypertension, hyperlipidemia, chronic anemia presenting with shortness of breath. Patient states that last night when she laid down to go to sleep she became overwhelmingly short of breath. States that she started to panic and thought she was going to . She was able to sit up and sleep for the night and then she called EMS this morning. She denies chest pain. States that she has gained weight especially in her legs lately. States that she is more swollen than normal. Denies fevers or chills, cough, abdominal pain, vomiting, diarrhea, dysuria, back pain, flank pain, lightheadedness, numbness, weakness. Related Data Home Medications Medication Instructions Recorded Confirmed diltiazem HCl 120 mg 120 mg PO DAILY 11/12/20 12/09/22 capsule,extended release 24 hr latanoprost 0.005 % eye drops 1 drp EACH EYE HS 11/12/20 12/09/22 metoprolol succinate 50 mg 100 mg PO DAILY 11/12/20 12/09/22 tablet,extended release 24 hr cyanocobalamin (vitamin B-12) 1,000 mcg PO DAILY 05/16/21 12/09/22 1,000 mcg tablet fluticasone propionate 50 1 spray intranasal DAILY PRN 05/16/21 12/09/22 mcg/actuation nasal Congestion spray,suspension acetaminophen 500 mg tablet 500 mg PO QID 11/25/21 12/09/22 insulin aspart U-100 100 unit/mL See Rx Instructions subcut TID PRN 11/25/21 12/09/22 (3 mL) subcutaneous pen (Novolog Hyperglycemia FlexPen U-100 Insulin aspart) insulin glargine 100 unit/mL (3 30 unit subcut QAM 10/03/22 12/09/22 mL) subcutaneous pen (Basaglar KwikPen U-100 Insulin) duloxetine 30 mg capsule,delayed 30 mg PO DAILY 10/11/22 12/09/22 release furosemide 40 mg tablet 40 mg PO BID 10/11/22 12/09/22 ascorbic acid (vitamin C) 1,000 mg 1,000 mg PO DAILY 10/13/22 12/09/22 tablet (Vitamin C) aspirin 81 mg tablet 81 mg PO DAILY 10/13/22 12/09/22 calcium carbonate 500 mg calcium 500 mg PO DAILY 10/13/22 12/09/22 (1,250 mg) tablet cholecalciferol (vitamin D3) 25 1,000 mcg PO DAILY 10/13/22 12/09/22 mcg (1,000 unit) tablet (Vitamin D3) potassium chloride 20 mEq 20 meq PO DAILY 10/13/22 12/09/22 tablet,extended release Allergies Allergy/AdvReac Type Severity Reaction Status Date / Time amoxicillin Allergy Mild Rash Verified 12/09/22 16:00 cat dander Allergy Mild Swelling Verified 12/09/22 16:00 of the Eye clavulanic acid Allergy Unknown Rash Unverified 12/09/22 16:00 SUZE Inhibitors AdvReac Mild Cough Verified 12/09/22 16:00 adhesive AdvReac Mild BLISTERS Verified 12/09/22 16:00 surgical glue Allergy Severe Swelling Uncoded 12/09/22 16:00 other Allergy Intermediate Swelling Uncoded 12/09/22 16:00 Review of Systems Review of Systems: All systems reviewed & are unremarkable except as noted in HPI and below PMFSH Past Medical History Medical History Adenomatous colon polyp Aortic stenosis (~2017) Severe aortic stenosis noted on echocardiogram in April 2020 Arthritis (~2009) Asthma Calcification of left breast on mammography Chronic anticoagulation Chronic back pain CKD stage 3 due to type 2 diabetes mellitus (~05/2019) With history of temporary dialysis during lengthy hospitalization Colon, diverticulosis Diastolic congestive heart failure (~2018) Most recent echo April 2020. Mild LVH. EF 60%. Mild mitral valve regurgitation Diverticulitis Essential (primary) hypertension External hemorrhoids without complication Frequent falls GAVE (gastric antral vascular ectasia) Noted on EGD 12/2020 GERD without esophagitis Glaucoma Gout Hyperlipidemia (~2009) Hypertensive heart and chronic kidney disease with heart failure and stage 1 through stage 4 chronic kidney disease, or unspecifie
[2022-12-05 13:38] LABS: INR 1.7; Prothrombin Time 20.6 Seconds (11.1-14.7)
[2022-12-05 13:39] LABS: Partial Thromboplastin Time 37.5 SECONDS (22.3-36.8)
[2022-12-05 13:44] LABS: Lipase 25 U/L (23-300); Magnesium 2.1 mg/dL (1.6-2.3)
[2022-12-05 13:57] LABS: NT Pro B Type Natriuretic Pept 2860 pg/mL (19.9-100); Troponin I < 0.012 ng/mL (0.000-0.034)
[2022-12-05] MEDS: FUROSEMIDE INJ 40 MG/4 ML VIAL IV PUSH (16:31)
--- NOTE | 2022-12-05 16:32 | PM.IMHP ---
H&P: HPI History of Present Illness Date/Time: 12/05/22 16:32 Chief Complaint: Short of breath and body weight gain Narrative: Patient is a 72-year-old female with a history of CHF, CKD, A-fib on Eliquis, hypertension, hyperlipidemia, chronic anemia presenting with shortness of breath.? Patient has been having shortness of breath recently, getting worse gradually. And the patient started has severe dyspnea yesterday evening. Patient denies chest pain, palpitation, cough fever or chills. Patient has gained significant weight recently. Patient denies abdomen pain, nausea vomiting diarrhea dysuria. Patient came to ED for evaluation, in the ED, patient found to have LAD BMP, ICA shows pulmonary congestion, cardiomegaly, and small pleural effusion patient received Lasix and bronchodilators in the ED, patient feels better. We may patient for further evaluation and management [facility] Past Medical History Medical History Adenomatous colon polyp Aortic stenosis (~2017) Severe aortic stenosis noted on echocardiogram in April 2020 Arthritis (~2009) Asthma Calcification of left breast on mammography Chronic anticoagulation Chronic back pain CKD stage 3 due to type 2 diabetes mellitus (~05/2019) With history of temporary dialysis during lengthy hospitalization Colon, diverticulosis Diastolic congestive heart failure (~2018) Most recent echo April 2020. Mild LVH. EF 60%. Mild mitral valve regurgitation Diverticulitis Essential (primary) hypertension External hemorrhoids without complication Frequent falls GAVE (gastric antral vascular ectasia) Noted on EGD 12/2020 GERD without esophagitis Glaucoma Gout Hyperlipidemia (~2009) Hypertensive heart and chronic kidney disease with heart failure and stage 1 through stage 4 chronic kidney disease, or unspecified chronic kidney disease Intramuscular hematoma Lumbar spondylosis Lung nodule seen on imaging study Major depressive disorder, recurrent, unspecified Moderate pulmonary hypertension Obstructive sleep apnea (~2014) Uses a CPAP at nighttime. Osteoporosis Peripheral neuropathy Positive colorectal cancer screening using Cologuard test Postmenopausal Pulmonary nodule Toe fracture lt great toe fx. Type 2 diabetes mellitus with diabetic nephropathy, with long-term current use of insulin Unspecified asthma with status asthmaticus Uterine cancer Status post hysterectomy. Vitamin D deficiency Surgical History Surgical History H/O colonoscopy with polypectomy History of heart surgery 08/2021, heart valve replacement History of total bilateral knee replacement History of tracheostomy After lengthy hospitalization in 2014. Hx of bilateral cataract extraction Status post appendectomy Status post cataract extraction of both eyes with insertion of intraocular lens Status post cholecystectomy Status post hysterectomy For uterine cancer. Family History Family History Mother Diabetes mellitus Sibling Family history of malignant neoplasm of thyroid Family history of atrial fibrillation Parkinsons disease Father Family history of congestive heart failure Parkinsons disease Other Asthma Family history of cardiovascular disease Family history of hearing loss Social History Social History Social History: The patient lives in [place]. She is a lifelong non-smoker. No alcohol or drug use. She has no children she is single. 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 Primary care physician: Dr. Javier Sarah Code status: Full code Surrogate decision maker: Karla (twin sister) Caffeine-diet soda code status full code Smoking status: Never smoker Second hand tobacco smoke exposure: No Alcohol intake: never
[2022-12-05 16:42] LABS: Troponin I < 0.012 ng/mL (0.000-0.034)
--- NOTE | 2022-12-05 17:20 | ADMGEN ---
This patient, Laurel Rucker, was admitted to 2 Medical Room 240-. Patient/family oriented to hospital policies and general routines including ID bracelet, bed and alarms, visiting hours, pain management, procedures, bathroom and other care routines, personal items, smoking policy, room service/diet, and visiting hours. Information on how to activate the Rapid Response Team has been discussed. Patient/Family are encouraged to report perceived risks to care and to ask questions if they do not understand what they are told or what they should do.
[2022-12-05 17:38] LABS: Glucose Point of Care 140 mg/dl (65-105)
[2022-12-05 20:28] LABS: Troponin I < 0.012 ng/mL (0.000-0.034)
[2022-12-05] MEDS: IPRATROPIUM BR 0.02% INH SOLN 0.5 MG/2.5 ML VIAL INHALATION (20:30)
[2022-12-05] MEDS: RIVAROXABAN 15 MG TABLET PO (22:20)
[2022-12-05 22:21] LABS: Glucose Point of Care 166 mg/dl (65-105)
[2022-12-06] VITALS (20 sets, daily range): BP systolic 112–150; BP diastolic 58–85; PULSE 64–80; RESP 14–18; TEMP 36.3–36.5; O2SAT 92–98
[2022-12-06] MEDS: IPRATROPIUM BR 0.02% INH SOLN 0.5 MG/2.5 ML VIAL INHALATION ×4 (02:15→19:54)
[2022-12-06] MEDS: ACETAMINOPHEN 500 MG TABLET PO ×5 (03:15→20:48)
[2022-12-06] MEDS: GABAPENTIN 300 MG CAPSULE 600 MG PO ×4 (03:15→18:01)
--- NOTE | 2022-12-06 07:34 | PM.IMPN ---
Progress Note: A&P Assessment and Plan (1) Acute on chronic diastolic CHF (congestive heart failure): Code(s): I50.33 - Acute on chronic diastolic (congestive) heart failure Status: Acute (2) Acute respiratory failure with hypoxemia: Code(s): J96.01 - Acute respiratory failure with hypoxia Status: Acute (3) Type 2 diabetes mellitus with diabetic nephropathy, with long-term current use of insulin: Code(s): E11.21 - Type 2 diabetes mellitus with diabetic nephropathy; Z79.4 - senior living (current) use of insulin Status: Chronic (4) Hyperlipidemia: Onset Date: ~2009 Qualifiers: Hyperlipidemia type: unspecified Qualified Code(s): E78.5 - Hyperlipidemia, unspecified Code(s): E78.5 - Hyperlipidemia, unspecified Status: Chronic (5) Obstructive sleep apnea: Onset Date: ~2014 Code(s): G47.33 - Obstructive sleep apnea (adult) (pediatric) Status: Chronic (6) Morbid obesity: Onset Date: ~2009 Code(s): E66.01 - Morbid (severe) obesity due to excess calories Status: Chronic (7) Chronic kidney disease, stage 3: Onset Date: ~05/2019 Qualifiers: Chronic kidney disease stage 3 subtype: stage 3b (GFR 30-44) Qualified Code(s): N18.32 - Chronic kidney disease, stage 3b Code(s): N18.3 - Chronic kidney disease, stage 3 (moderate) Status: Chronic (8) GERD without esophagitis: Code(s): K21.9 - Gastro-esophageal reflux disease without esophagitis Status: Acute (9) BMI 45.0-49.9, adult: Code(s): Z68.42 - Body mass index [BMI] 45.0-49.9, adult Status: Acute (10) Atrial fibrillation: Qualifiers: Atrial fibrillation type: unspecified chronic Qualified Code(s): I48.20 - Chronic atrial fibrillation, unspecified Code(s): I48.91 - Unspecified atrial fibrillation Status: Chronic Plan Acute on chronic diastolic heart failure Patient has a worsening shortness of breath recently, getting worse yesterday. Patient has gained significant weight recently Patient is also noted to have pulmonary congestion cardiomegaly, small pleural effusion bilaterally Elevated BMP Echocardiogram September 2022 suggested cardiac diastolic function Started Lasix 40 mg b.i.d. IV push 12/05 hold oral Lasix Fluid restriction Follow-up input output Short of breath is improved Acute respiratory failure with hypoxemia secondary to acute heart failure and obesity related hypoventilation Start O2 therapy to keep pulse ox above 94 BiPAP p.r.n. Morbid obesity and possible Eric Patient has a scheduled appointment for sleep study of patient CKD stage 3 Avoid nephrotoxic medication Follow-up BMP Type 2 diabetes Oral medication, Ozempic IV, Start insulin sliding scale a.c. q.h.s. Chronic AFib Continue Xarelto 15 mg daily p.o., 120 mg daily p.o. Telemetry monitoring Essential hypertension Continue hydralazine 25 mg t.i.d. p.o. Hyperlipidemia continue Crestor 5 mg daily p.o. GERD Continue Protonix 40 mg p.o. Patient may stay more than 2 midnights in the hospital May discharge patient home tomorrow if patient condition continues to improve Subjective Date/time seen: 12/06/22 07:34 Interval history: I saw on exam patient today. Patient feels dyspnea is improving, denies chest pain, abdominal pain, nausea vomiting diarrhea patient is afebrile, hemodynamically stable Exam Narrative: GENERAL: Pleasant, in no acute distress. Well-nourished. Morbid obesity - EYES: EOMI. Anicteric. - HENT: Moist mucous membranes. - LUNGS: Coarse breath sounds bilateral bases, bilaterally, no wheezing, rhonchi, or rales. - CARDIOVASCULAR: Regular rate and rhythm. No murmur. No JVD. - ABDOMEN: Soft, non-tender and non-distended. No palpable masses. - EXTREMITIES: 2+ bilateral lower extremity edema. Peripheral pulses 2+. Non-tender. - NEUROLOGIC: No focal neurological deficits. CN II-XII gr
[2022-12-06 08:27] LABS: Glucose Point of Care 166 mg/dl (65-105)
[2022-12-06] MEDS: ASCORBIC ACID 500 MG TABLET 1000 MG PO (09:01)
[2022-12-06] MEDS: CHOLECALCIFEROL 1,000 UNITS TABLET 1000 UNITS PO (09:02)
[2022-12-06] MEDS: ASPIRIN 81 MG ENTERIC TABLET PO (09:02)
[2022-12-06] MEDS: CYANOCOBALAMIN 1,000 MCG TABLET 1000 MCG PO (09:03)
[2022-12-06] MEDS: DULoxetine HCL 30 MG CAPSULE.DR PO (09:03)
[2022-12-06] MEDS: CALCIUM CARBONATE (OSCAL) 500 MG TABLET PO (09:03)
[2022-12-06] MEDS: hydrALAZINE HCL 25 MG TABLET PO ×3 (09:04→18:03)
[2022-12-06] MEDS: METOPROLOL SUCCINATE EXT REL 100 MG TABCR PO (09:04)
[2022-12-06] MEDS: LORATADINE 10 MG TABLET PO (09:04)
[2022-12-06] MEDS: ROSUVASTATIN 5 MG TABLET PO (09:05)
[2022-12-06] MEDS: POTASSIUM CHLORIDE 20 MEQ ER TABLET PO (09:05)
[2022-12-06] MEDS: TRIAMCINOLONE ACET 0.1% OINT 15 GM TUBE 1 APPLIC TOPICAL ×2 (09:05→18:03)
[2022-12-06] MEDS: PANTOPRAZOLE 40 MG TABLET PO (09:05)
[2022-12-06] MEDS: INSULIN GLARGINE (*BKC) 100 UNITS/ML 25 UNITS SUB-Q (09:06)
[2022-12-06 12:07] LABS: Glucose Point of Care 188 mg/dl (65-105)
[2022-12-06] MEDS: FUROSEMIDE INJ 40 MG/4 ML VIAL 20 MG IV PUSH ×2 (13:35→18:30)
--- NOTE | 2022-12-06 15:35 | ECG_ITS ---
Measurements Intervals [place] Rate: 52 P: [place]: 0 QRS: -9 QRSD: 92 T: 60 QT: 461 QTc: 430 Interpretive Statements ATRIAL FIBRILLATION WITH SLOW VENTRICULAR RESPONSE VENTRICULAR PREMATURE COMPLEX DELAYED PRECORDIAL R/S TRANSITION LOW QRS VOLTAGE IN LIMB LEADS ABNORMAL ECG COMPARED TO ECG 12/05/2022 10:54:39 HEART RATE HAS DECREASED Electronically Signed On 12-06-2022 16:04:16 CDT by Lucho Mederos D.O.
[2022-12-06 17:01] LABS: Glucose Point of Care 129 mg/dl (65-105)
[2022-12-06] MEDS: RIVAROXABAN 15 MG TABLET PO (18:03)
[2022-12-06 20:35] LABS: Glucose Point of Care 230 mg/dl (65-105)
[2022-12-06] MEDS: LATANOPROST 0.005% OP SOLN 2.5 ML BTL 1 DROP EACH EYE (20:49)
[2022-12-06] MEDS: FERROUS SULFATE 324 MG TABLET 648 MG PO (20:49)
[2022-12-06] MEDS: INSULIN ASPART (*BKC) 100 UNITS/ML SUB-Q (20:50)
[2022-12-07] VITALS (19 sets, daily range): BP systolic 113–135; BP diastolic 64–70; PULSE 60–95; RESP 16–18; TEMP 36.2–36.9; O2SAT 93–100
[2022-12-07] MEDS: IPRATROPIUM BR 0.02% INH SOLN 0.5 MG/2.5 ML VIAL INHALATION ×4 (01:58→19:49)
[2022-12-07 05:41] LABS: Hematocrit 31.9 % (37.0-47.0); Hemoglobin 9.2 g/dL (12.0-15.0); Mean Corpuscular HGB Conc 28.8 g/dl (32-36); Mean Corpuscular Hemoglobin 30.6 pg (26-34); Platelet Count Result 184 k/mm3 (150-375); Red Blood Count 3.01 M/mm3 (4.2-5.4); Red Cell Distribution Width 14.4 % (11.5-14.5); White Blood Count 4.6 K/mm3 (4.5-10.0)
[2022-12-07 06:08] LABS: Blood Urea Nitrogen 31 mg/dL (7-17); Calcium 8.7 mg/dL (8.4-10.2); Carbon Dioxide > 40 mmol/L (22-30); Chloride 99 mmol/L (98-107); Estimated CRCL calculation 49 ml/min; Estimated Glomerular Filt Rate 40; Glucose 127 mg/dL (65-110); Potassium 4.2 mmol/L (3.4-5.0); Sodium 137 mmol/L (137-145)
[2022-12-07] MEDS: ASCORBIC ACID 500 MG TABLET 1000 MG PO (08:00)
[2022-12-07] MEDS: LORATADINE 10 MG TABLET PO (08:00)
[2022-12-07] MEDS: CHOLECALCIFEROL 1,000 UNITS TABLET 1000 UNITS PO (08:00)
[2022-12-07] MEDS: CYANOCOBALAMIN 1,000 MCG TABLET 1000 MCG PO (08:00)
[2022-12-07] MEDS: ROSUVASTATIN 5 MG TABLET PO (08:00)
[2022-12-07] MEDS: GABAPENTIN 300 MG CAPSULE 600 MG PO ×3 (08:00→16:54)
[2022-12-07] MEDS: ACETAMINOPHEN 500 MG TABLET PO ×4 (08:00→20:56)
[2022-12-07] MEDS: POTASSIUM CHLORIDE 20 MEQ ER TABLET PO (08:00)
[2022-12-07] MEDS: FUROSEMIDE INJ 40 MG/4 ML VIAL 20 MG IV PUSH ×2 (08:01→16:50)
[2022-12-07] MEDS: ASPIRIN 81 MG ENTERIC TABLET PO (08:01)
[2022-12-07] MEDS: DULoxetine HCL 30 MG CAPSULE.DR PO (08:01)
[2022-12-07] MEDS: hydrALAZINE HCL 25 MG TABLET PO ×3 (08:01→16:54)
[2022-12-07] MEDS: CALCIUM CARBONATE (OSCAL) 500 MG TABLET PO (08:01)
[2022-12-07] MEDS: TRIAMCINOLONE ACET 0.1% OINT 15 GM TUBE 1 APPLIC TOPICAL ×2 (08:02→16:55)
[2022-12-07] MEDS: PANTOPRAZOLE 40 MG TABLET PO (08:02)
[2022-12-07 08:19] LABS: Glucose Point of Care 138 mg/dl (65-105)
[2022-12-07] MEDS: INSULIN GLARGINE (*BKC) 100 UNITS/ML 25 UNITS SUB-Q (08:34)
[2022-12-07 12:05] LABS: Glucose Point of Care 213 mg/dl (65-105)
[2022-12-07] MEDS: INSULIN ASPART (*BKC) 100 UNITS/ML SUB-Q (12:16)
--- NOTE | 2022-12-07 12:53 | PM.IMPN ---
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 (current) use of insulin Status: Chronic (4) Hyperlipidemia: Onset Date: ~2009 Qualifiers: Hyperlipidemia type: unspecified Qualified Code(s): E78.5 - Hyperlipidemia, unspecified Code(s): E78.5 - Hyperlipidemia, unspecified Status: Chronic (5) Obstructive sleep apnea: Onset Date: ~2014 Code(s): G47.33 - Obstructive sleep apnea (adult) (pediatric) Status: Chronic (6) Morbid obesity: Onset Date: ~2009 Code(s): E66.01 - Morbid (severe) obesity due to excess calories Status: Chronic (7) Chronic kidney disease, stage 3: Onset Date: ~05/2019 Qualifiers: Chronic kidney disease stage 3 subtype: stage 3b (GFR 30-44) Qualified Code(s): N18.32 - Chronic kidney disease, stage 3b Code(s): N18.3 - Chronic kidney disease, stage 3 (moderate) Status: Chronic (8) GERD without esophagitis: Code(s): K21.9 - Gastro-esophageal reflux disease without esophagitis Status: Acute (9) BMI 45.0-49.9, adult: Code(s): Z68.42 - Body mass index [BMI] 45.0-49.9, adult Status: Acute (10) Atrial fibrillation: Qualifiers: Atrial fibrillation type: unspecified chronic Qualified Code(s): I48.20 - Chronic atrial fibrillation, unspecified Code(s): I48.91 - Unspecified atrial fibrillation Status: Chronic Plan Acute on chronic diastolic heart failure Patient has a worsening shortness of breath recently, getting worse yesterday. Patient has gained significant weight recently Patient is also noted to have pulmonary congestion cardiomegaly, small pleural effusion bilaterally Elevated BMP Echocardiogram September 2022 suggested cardiac diastolic function Continue lasix 20 mg iv bid Wean off oxygen Acute respiratory failure with hypoxemia secondary to acute heart failure and obesity related hypoventilation Start O2 therapy to keep pulse ox above 94 Morbid obesity and possible ANNIE Patient has a scheduled appointment for sleep study of patient CKD stage 3 Avoid nephrotoxic medication Follow-up BMP Type 2 diabetes Oral medication, Ozempic IV, Start insulin sliding scale a.c. q.h.s. Chronic AFib Continue Xarelto 15 mg daily p.o., 120 mg daily p.o. Telemetry monitoring Essential hypertension Continue hydralazine 25 mg t.i.d. p.o. Hyperlipidemia continue Crestor 5 mg daily p.o. Subjective Date/time seen: 12/07/22 12:53 Interval history: Pt seen and examined ongoing Sob Pt is on 1 liter of oxygen plan to wean off oxygen and have pt ambulate more today Hopeful Dc tomorrow Review of Systems Review of Systems: mild sob, mild swelling in her legs Exam Narrative: GENERAL: Pleasant, in no acute distress. Well-nourished. Morbid obesity - EYES: EOMI. Anicteric. - HENT: Moist mucous membranes. - LUNGS: Coarse breath sounds bilateral bases, bilaterally, no wheezing, rhonchi, or rales. - CARDIOVASCULAR: Regular rate and rhythm. No murmur. No JVD. - ABDOMEN: Soft, non-tender and non-distended. No palpable masses. - EXTREMITIES: 2+ bilateral lower extremity edema. Peripheral pulses 2+. Non-tender. - NEUROLOGIC: No focal neurological deficits. CN II-XII grossly intact. - PSYCHIATRIC: Awake, Alert and oriented x 3. Appropriate mood and affect. - SKIN: No rashes or lesions. Warm. - LYMPH: No cervical lymphadenopathy.
--- NOTE | 2022-12-07 13:10 | PCPTNOTE ---
On 12/07/22, the student, STEVEN Sesay, provided care and completed [facility] documentation on this patient. I have reviewed the student's documentation and agree with the findings.
[2022-12-07] MEDS: RIVAROXABAN 15 MG TABLET PO (16:55)
[2022-12-07 17:03] LABS: Glucose Point of Care 121 mg/dl (65-105)
[2022-12-07 19:35] LABS: Glucose Point of Care 186 mg/dl (65-105)
[2022-12-07] MEDS: LATANOPROST 0.005% OP SOLN 2.5 ML BTL 1 DROP EACH EYE (20:56)
[2022-12-07] MEDS: FERROUS SULFATE 324 MG TABLET 648 MG PO (20:56)
[2022-12-08] VITALS: PULSE 96
[2022-12-08] MEDS: IPRATROPIUM BR 0.02% INH SOLN 0.5 MG/2.5 ML VIAL INHALATION (01:24)
[2022-12-08 01:25] VITALS: PULSE 84; RESP 18
[2022-12-08 01:30] VITALS: PULSE 80; RESP 19
[2022-12-08 04:00] VITALS: PULSE 112
[2022-12-08 05:30] VITALS: BP 142/70; PULSE 66; RESP 18; TEMP 36.7; O2SAT 100
[2022-12-08 08:00] VITALS: PULSE 125
[2022-12-08 08:11] LABS: Glucose Point of Care 133 mg/dl (65-105)
[2022-12-08] MEDS: hydrALAZINE HCL 25 MG TABLET PO (08:49)
[2022-12-08] MEDS: GABAPENTIN 300 MG CAPSULE 600 MG PO (08:49)
[2022-12-08] MEDS: ASPIRIN 81 MG ENTERIC TABLET PO (08:49)
[2022-12-08] MEDS: LORATADINE 10 MG TABLET PO (08:49)
[2022-12-08] MEDS: PANTOPRAZOLE 40 MG TABLET PO (08:49)
[2022-12-08] MEDS: POTASSIUM CHLORIDE 20 MEQ ER TABLET PO (08:49)
[2022-12-08] MEDS: CHOLECALCIFEROL 1,000 UNITS TABLET 1000 UNITS PO (08:50)
[2022-12-08] MEDS: CALCIUM CARBONATE (OSCAL) 500 MG TABLET PO (08:50)
[2022-12-08] MEDS: CYANOCOBALAMIN 1,000 MCG TABLET 1000 MCG PO (08:50)
[2022-12-08] MEDS: DULoxetine HCL 30 MG CAPSULE.DR PO (08:50)
[2022-12-08] MEDS: ASCORBIC ACID 500 MG TABLET 1000 MG PO (08:50)
[2022-12-08] MEDS: ACETAMINOPHEN 500 MG TABLET PO (08:50)
[2022-12-08] MEDS: ROSUVASTATIN 5 MG TABLET PO (08:50)
[2022-12-08] MEDS: FUROSEMIDE INJ 40 MG/4 ML VIAL 20 MG IV PUSH (08:51)
[2022-12-08] MEDS: INSULIN GLARGINE (*BKC) 100 UNITS/ML 25 UNITS SUB-Q (08:53)
--- NOTE | 2022-12-08 09:31 | PM.DS ---
DS: Admitting Diagnosis Discharge Date 12/08/2022 Admitting Diagnosis Short of breath and body weight gain DS: Discharge Diagnosis Discharge Diagnosis (1) Acute on chronic diastolic CHF (congestive heart failure): Code(s): I50.33 - Acute on chronic diastolic (congestive) heart failure Status: Acute Assessment and Plan: See notes below (2) Acute respiratory failure with hypoxemia: Code(s): J96.01 - Acute respiratory failure with hypoxia Status: Acute (3) Type 2 diabetes mellitus with diabetic nephropathy, with long-term current use of insulin: Code(s): E11.21 - Type 2 diabetes mellitus with diabetic nephropathy; Z79.4 - [facility] (current) use of insulin Status: Chronic (4) Hyperlipidemia: Onset Date: ~2009 Qualifiers: Hyperlipidemia type: unspecified Qualified Code(s): E78.5 - Hyperlipidemia, unspecified Code(s): E78.5 - Hyperlipidemia, unspecified Status: Chronic (5) Obstructive sleep apnea: Onset Date: ~2014 Code(s): G47.33 - Obstructive sleep apnea (adult) (pediatric) Status: Chronic (6) Morbid obesity: Onset Date: ~2009 Code(s): E66.01 - Morbid (severe) obesity due to excess calories Status: Chronic (7) Chronic kidney disease, stage 3: Onset Date: ~05/2019 Qualifiers: Chronic kidney disease stage 3 subtype: stage 3b (GFR 30-44) Qualified Code(s): N18.32 - Chronic kidney disease, stage 3b Code(s): N18.3 - Chronic kidney disease, stage 3 (moderate) Status: Chronic (8) GERD without esophagitis: Code(s): K21.9 - Gastro-esophageal reflux disease without esophagitis Status: Acute (9) BMI 45.0-49.9, adult: Code(s): Z68.42 - Body mass index [BMI] 45.0-49.9, adult Status: Acute (10) Atrial fibrillation: Qualifiers: Atrial fibrillation type: unspecified chronic Qualified Code(s): I48.20 - Chronic atrial fibrillation, unspecified Code(s): I48.91 - Unspecified atrial fibrillation Status: Chronic Plan Acute on chronic diastolic heart failure Patient has a worsening shortness of breath recently, getting worse yesterday. Patient has gained significant weight recently Patient is also noted to have pulmonary congestion cardiomegaly, small pleural effusion bilaterally Elevated BMP Echocardiogram September 2022 suggested cardiac diastolic function Pt treated with lasix 20 mg iv bid transition back to oral lasix Pt successfully weaned off oxygen Acute respiratory failure with hypoxemia Secondary to acute heart failure and obesity related hypoventilation Started on O2 therapy and weaned off Morbid obesity and possible ANNIE Patient has a scheduled appointment for sleep study of patient CKD stage 3 Avoid nephrotoxic medication Type 2 diabetes Oral medication Chronic AFib Continue Xarelto 15 mg daily p.o., Cardizem 120 mg daily p.o. Telemetry monitoring Essential hypertension Continue hydralazine 25 mg t.i.d. p.o. Hyperlipidemia continue Crestor 5 mg daily p.o. DS: Summary Hospital Course Hospital Course: 72-year-old female with a history of CHF, CKD, A-fib on Eliquis, hypertension, hyperlipidemia, chronic anemia presenting with shortness of breath.? Patient has been having shortness of breath recently, getting worse gradually.? And the patient started has severe dyspnea yesterday evening.? Patient denies chest pain, palpitation, cough fever or chills.? Patient has gained significant weight recently.? Patient denies abdomen pain, nausea vomiting diarrhea dysuria.? Patient came to ED for evaluation, in the ED, patient found to have LAD BMP, ICA shows pulmonary congestion, cardiomegaly, and small pleural effusion patient received Lasix and bronchodilators in the ED, patient feels better.? Pt treated with iv lasix weaned off to oral lasix ok to discharge. Pt has follow up with cardiology this afternoon. Please note pts pupils
[2022-12-08 12:25] LABS: Glucose Point of Care 241 mg/dl (65-105)
[2022-12-08] MEDS: INSULIN ASPART (*BKC) 100 UNITS/ML SUB-Q (12:29)
== END 2022-12-08 12:50 | disposition home health service (06) | DRG 291 ==
LOC: ANHED 12:05 → ANH2MED 16:48
PROVIDERS: Admitting Provider Hospitalist; Emergency Provider Emergency Medicine; PCP Family Medicine; Visit Provider Family Medicine
DX: I13.0 Hypertensive heart and chronic kidney disease with heart failure and stage 1 through stage 4 chronic kidney disease, or unspecified chronic kidney disease (principal); I50.33 Acute on chronic diastolic (congestive) heart failure; J96.01 Acute respiratory failure with hypoxia; I50.32 Chronic diastolic (congestive) heart failure; Z68.42 Body mass index [BMI] 45.0-49.9, adult; I35.0 Nonrheumatic aortic (valve) stenosis; N18.30 Chronic kidney disease, stage 3 unspecified; E11.22 Type 2 diabetes mellitus with diabetic chronic kidney disease; E11.21 Type 2 diabetes mellitus with diabetic nephropathy; E11.42 Type 2 diabetes mellitus with diabetic polyneuropathy; I27.20 Pulmonary hypertension, unspecified; J45.909 Unspecified asthma, uncomplicated; D64.9 Anemia, unspecified; K57.30 Diverticulosis of large intestine without perforation or abscess without bleeding; K31.819 Angiodysplasia of stomach and duodenum without bleeding; K21.9 Gastro-esophageal reflux disease without esophagitis; E55.9 Vitamin D deficiency, unspecified; E66.01 Morbid (severe) obesity due to excess calories; E78.5 Hyperlipidemia, unspecified; M10.9 Gout, unspecified; M47.816 Spondylosis without myelopathy or radiculopathy, lumbar region; M19.90 Unspecified osteoarthritis, unspecified site; M81.0 Age-related osteoporosis without current pathological fracture; F32.9 Major depressive disorder, single episode, unspecified; Z96.653 Presence of artificial knee joint, bilateral; Z85.42 Personal history of malignant neoplasm of other parts of uterus; Z79.01 Long term (current) use of anticoagulants; Z86.010 Personal history of colon polyps; Z79.4 Long term (current) use of insulin; Z79.82 Long term (current) use of aspirin; Z95.2 Presence of prosthetic heart valve
CPT/HCPCS: 36415; 71045; 80048; 80053; 82948; 83690; 83735; 83880; 84484; 85025; 85027; 85610; 85730; 93005; 94640; 96374; 96376; 97161; 97165; 97530; 97535; 99285; A9270; G0378; J1815; J1940

== ENCOUNTER 2022-12-29 08:54 | Outpatient (CLI) | payer OTHER, SELFPAY ==
[2022-12-29 09:56] LABS: Basophils Percent Auto 0.6 % (0.2-1.2); Eosinophils Absolute Auto 0.3 K/mm3 (0-0.3); Eosinophils Percent Auto 4.7 % (0-4.4); Hematocrit 29.1 % (37.0-47.0); Hemoglobin 8.4 g/dL (12.0-15.0); Immature Granulocyte Absolute 0.03 K/mm3 (0.00-0.031); Immature Granulocyte Percent A 0.5 % (0-0.5); Lymphocytes Absolute Auto 0.57 K/mm3 (0.9-3.2); Mean Corpuscular HGB Conc 28.9 g/dl (32-36); Mean Corpuscular Hemoglobin 31.2 pg (26-34); Mean Corpuscular Volume 108.2 fl (80-100); Mean Platelet Volume 10.4 fl (7.4-10.4); Monocytes Absolute Auto 0.4 K/mm3 (0.1-0.6); Neutrophils Absolute Auto 4.9 K/mm3 (1.3-6.7); Neutrophils Percent Auto 78.2 % (45.5-73.1); Platelet Count Result 169 k/mm3 (150-375); Red Blood Count 2.69 M/mm3 (4.2-5.4); Red Cell Distribution Width 17.1 % (11.5-14.5); White Blood Count 6.3 K/mm3 (4.5-10.0)
[2022-12-29 10:03] LABS: Alanine Aminotransferase 22 U/L (6-35); Albumin Level 3.3 g/dL (3.5-5.1); Alkaline Phosphatase 61 U/L (38-126); Anion Gap 5 mmol/L (8-16); Aspartate Amino Transferase 25 U/L (14-36); Bilirubin,Total 0.4 mg/dL (0.2-1.3); Blood Urea Nitrogen 38 mg/dL (7-17); Calcium 8.4 mg/dL (8.4-10.2); Carbon Dioxide 32 mmol/L (22-30); Chloride 99 mmol/L (98-107); Estimated Glomerular Filt Rate 37; Glucose 160 mg/dL (65-110); Potassium 3.8 mmol/L (3.4-5.0); Sodium 136 mmol/L (137-145)
[2022-12-29 10:08] LABS: NT Pro B Type Natriuretic Pept 4160 pg/mL (19.9-100)
[2022-12-29 10:39] LABS: Hypochromasia 1+ (NORMAL); Macrocytosis 1+ (NORMAL); Platelet Estimate Adequate (Adequate); Schistocytes None Seen (NORMAL)
== END 2022-12-29 08:55 | disposition home or self-care (01) ==
LOC: ANHLAB 08:55
PROVIDERS: PCP Family Medicine; Visit Provider Internal Medicine Cardiovascular Disease
DX: I50.32 Chronic diastolic (congestive) heart failure (principal)
CPT/HCPCS: 36415; 80053; 83880; 85025

== ENCOUNTER 2023-01-06 09:20 | Outpatient (CLI) | payer OTHER, SELFPAY ==
[2023-01-06 09:39] LABS: Basophils Percent Auto 0.6 % (0.2-1.2); Eosinophils Absolute Auto 0.3 K/mm3 (0-0.3); Eosinophils Percent Auto 4.3 % (0-4.4); Hematocrit 32.8 % (37.0-47.0); Hemoglobin 9.8 g/dL (12.0-15.0); Immature Granulocyte Absolute 0.04 K/mm3 (0.00-0.031); Immature Granulocyte Percent A 0.6 % (0-0.5); Lymphocytes Absolute Auto 0.74 K/mm3 (0.9-3.2); Lymphocytes Percent Auto 10.5 % (18.3-44.2); Mean Corpuscular HGB Conc 29.9 g/dl (32-36); Mean Corpuscular Hemoglobin 32.1 pg (26-34); Mean Corpuscular Volume 107.5 fl (80-100); Mean Platelet Volume 9.1 fl (7.4-10.4); Monocytes Absolute Auto 0.5 K/mm3 (0.1-0.6); Monocytes Percent Auto 6.8 % (2.6-8.5); Neutrophils Absolute Auto 5.4 K/mm3 (1.3-6.7); Neutrophils Percent Auto 77.2 % (45.5-73.1); Platelet Count Result 185 k/mm3 (150-375); Red Blood Count 3.05 M/mm3 (4.2-5.4); Red Cell Distribution Width 17.3 % (11.5-14.5)
[2023-01-06 09:44] LABS: Blood Urea Nitrogen 21 mg/dL (8-26); Carbon Dioxide 31 mmol/L (22-30); Chloride 102 mmol/L (98-109); Estimated Glomerular Filt Rate 34; Glucose 87 mg/dL (70-105); Potassium 3.5 mmol/L (3.5-4.9); Sodium 146 mmol/L (138-146)
[2023-01-06 09:45] LABS: Anisocytosis 1+ (NORMAL); Hypochromasia 1+ (NORMAL); Platelet Estimate Adequate (Adequate); Schistocytes None Seen (NORMAL)
== END 2023-01-06 09:21 | disposition home or self-care (01) ==
LOC: ANHLAB 09:23
PROVIDERS: PCP Family Medicine; Visit Provider Internal Medicine Hematology & Oncology
DX: D64.9 Anemia, unspecified (principal)
CPT/HCPCS: 36415; 80047; 85025

== ENCOUNTER 2023-01-13 07:45 | Outpatient (CLI) | payer OTHER, SELFPAY ==
[2023-01-13 07:45] VITALS: PULSE 76; O2SAT 92
[2023-01-13 07:50] VITALS: PULSE 88; O2SAT 86
[2023-01-13 07:55] VITALS: PULSE 87; O2SAT 88
[2023-01-13 08:00] VITALS: PULSE 90; O2SAT 91
[2023-01-13 08:10] VITALS: PULSE 77; O2SAT 91
--- NOTE | 2023-01-13 08:41 | HOMEO2EVAL ---
Evaluation was performed at [facility] Home Oxygen Evaluation RC: Home Oxygen (O2) Evaluation Start: 01/13/23 08:39 Freq: Status: Active Protocol: RPE Activity Type Activity Date Activity User E-sign Co-sign Detail Recorded Client Recorded Date Recorded By Document 01/13/23 07:45 DJO [email or web address] 01/13/23 08:41 DJO Document 01/13/23 07:50 [email or web address] [email or web address] 01/13/23 08:41 DJO Document 01/13/23 07:55 [email or web address] [email or web address] 01/13/23 08:41 DJO Document 01/13/23 08:00 [email or web address] [email or web address] 01/13/23 08:41 DJO Document 01/13/23 08:10 [email or web address] [email or web address] 01/13/23 08:41 DJO 01/13/23 01/13/23 01/13/23 07:45 07:50 07:55 Home O2 Evaluation [Oxygen] -Test Phase Resting Exercise Exercise -Oxygen Delivery Room Air Room Air Nasal Cannula -Oxygen Flow Rate (L/min) 1 [Pulse Oximetry] -Pulse Oximetry (90-100 %) 92 86 L 88 L [Pulse Rate] -Pulse Rate (60-100 beats/min) 76 88 87 [Evaluation] -Activity Tolerance [Charges] -Treatment Charges O2 Evaluation - Outpatient 01/13/23 01/13/23 08:00 08:10 Home O2 Evaluation [Oxygen] -Test Phase Exercise Resting -Oxygen Delivery Nasal Cannula Room Air -Oxygen Flow Rate (L/min) 2 [Pulse Oximetry] -Pulse Oximetry (90-100 %) 91 91 [Pulse Rate] -Pulse Rate (60-100 beats/min) 90 77 [Evaluation] -Activity Tolerance Fair [Charges] -Treatment Charges
--- NOTE | 2023-01-13 12:12 | WPDPFTINT ---
PFT Procedure Performed PFT Procedure Performed Spirometry with Pre/Post Bronchodilator Plethysmography (Lung Vol) Diffusing Cap (DLCO) Flow Vol Loop PFT Interpretation This is a pulmonary function test with pre and post-bronchodilator spirometry, plethysmography and diffusing capacity. The test was performed and results interpreted in accordance with the 2019 and 2005 ATS/ERS Task Force guidelines respectively using the Global Lung Function Initiative-2012 reference equations. Patient demonstrated good effort and cooperation. Reproducibility criteria were met. The quality of the pre bronchodilator spirometry maneuver was Grade A and post bronchodilator spirometry maneuver was Grade A. Findings: Spirometry: The contour the expiratory flow tracing resembles a witch's hat. The contour the inspiratory flow tracing is normal. The pre bronchodilator FVC is 1.18 L, 40% predicted. The pre bronchodilator FEV1 is 0.85 L, 38% predicted. The pre bronchodilator FEV1: FVC ratio 72%. The post bronchodilator FVC is 1.29 L, representing a 9% increase. The post bronchodilator FEV1 is 0.96 L, representing an 110 mL increase which corresponds to a 13% increase. The post bronchodilator FEV1: FVC ratio 75%. Plethysmography: The total lung capacity is 3.65 L, 68% predicted. The functional residual capacity is 1.99 L, 64% predicted. The residual volume is 1.97 L, 83% predicted. Diffusing capacity: The diffusing capacity unadjusted for hemoglobin and carboxyhemoglobin is 10.6, 51% predicted. The diffusing capacity adjusted for alveolar volume is 4.89, 118% predicted. In comparison to previous pulmonary function testing on 01/16/2015 the post bronchodilator FVC has decreased from 2.45 L to 1.29 L. The post bronchodilator FEV1 has decreased from 2.02 L to 0.96 L. The total lung capacity is unchanged from 3.74 L to 3.65 L. The functional residual capacity has increased from 1.48 L to 1.99 L. The residual volume has increased from 1.14 L to 1.97 L. The diffusing capacity unadjusted for hemoglobin and carboxyhemoglobin is decreased from 15.1 to 10.6. The diffusing capacity adjusted for alveolar volume has increased from 4.13 to 4.89. Impression: There is a severe restrictive ventilatory abnormality. The spirometry is normal without evidence of an obstructive abnormality. There is no significant improvement after inhaling a single dose of albuterol as the absolute increase in the FEV1 I was less than 200 mL. The diffusing capacity unadjusted for hemoglobin and carboxyhemoglobin is moderately decreased and normalizes when adjusted for alveolar volume. In comparison to previous pulmonary function testing on 01/16/2015 there has been a greater than anticipated time dependent decrease in the FVC, FEV1 and diffusing capacity unadjusted for hemoglobin and carboxyhemoglobin with a greater than anticipated time dependent increase in the functional residual capacity, residual volume, and diffusing capacity adjusted for alveolar volume with no significant change in the total lung capacity. Clinical correlation is recommended.
== END 2023-01-13 07:46 | disposition home or self-care (01) ==
PROVIDERS: PCP Family Medicine; Visit Provider Physician Assistant
DX: R06.9 Unspecified abnormalities of breathing (principal); I50.33 Acute on chronic diastolic (congestive) heart failure; R94.2 Abnormal results of pulmonary function studies
CPT/HCPCS: 94060; 94618; 94726; 94729

== ENCOUNTER 2023-02-02 16:27 | Emergency (ER) | payer OTHER, SELFPAY ==
[2023-02-02 16:31] VITALS: BP 141/70; PULSE 93; RESP 18; TEMP 36.8; O2SAT 97
--- NOTE | 2023-02-02 16:38 | ED.SKABFB ---
HPI - Skin/Abscess/Foreign Bdy General Chief complaint: Skin/Abscess/Foreign Body Stated complaint: L LEG SWELLING/PAIN & R LEG BLEEDING SPOT Time Seen by Provider: 02/02/23 16:38 Source: patient and RN notes reviewed Mode of arrival: ambulatory Limitations: dementia History of Present Illness HPI narrative: 73-year-old female presents with concern for redness, swelling to her left lower leg. She reports she had cellulitis in November with similar symptoms. She reports she took cephalexin and it resolved. She reports over the last 2 days she noticed the area has become warm, red, slightly tender. She also reports, an unrelated complaint a small cut to her right lower leg for which she has bandaged. MD complaint: other (Redness) Related Data Home Medications Medication Instructions Recorded Confirmed diltiazem HCl 120 mg 120 mg PO DAILY 11/12/20 02/02/23 capsule,extended release 24 hr latanoprost 0.005 % eye drops 1 drp EACH EYE HS 11/12/20 02/02/23 metoprolol succinate 50 mg 100 mg PO DAILY 11/12/20 02/02/23 tablet,extended release 24 hr cyanocobalamin (vitamin B-12) 1,000 mcg PO DAILY 05/16/21 02/02/23 1,000 mcg tablet fluticasone propionate 50 1 spray intranasal DAILY PRN 05/16/21 02/02/23 mcg/actuation nasal Congestion spray,suspension acetaminophen 500 mg tablet 500 mg PO QID 11/25/21 02/02/23 insulin aspart U-100 100 unit/mL See Rx Instructions subcut TID PRN 11/25/21 02/02/23 (3 mL) subcutaneous pen (Novolog Hyperglycemia FlexPen U-100 Insulin aspart) duloxetine 30 mg capsule,delayed 30 mg PO DAILY 10/11/22 02/02/23 release ascorbic acid (vitamin C) 1,000 mg 1,000 mg PO DAILY 10/13/22 02/02/23 tablet (Vitamin C) aspirin 81 mg tablet 81 mg PO DAILY 10/13/22 02/02/23 calcium carbonate 500 mg calcium 500 mg PO DAILY 10/13/22 02/02/23 (1,250 mg) tablet cholecalciferol (vitamin D3) 25 1,000 mcg PO DAILY 10/13/22 02/02/23 mcg (1,000 unit) tablet (Vitamin D3) potassium chloride 20 mEq 20 meq PO DAILY 10/13/22 02/02/23 tablet,extended release insulin glargine U-300 conc 300 35 unit subcut DAILY 02/02/23 02/02/23 unit/mL (1.5 mL) subcutaneous pen (Toujeo SoloStar U-300 Insulin) Allergies Allergy/AdvReac Type Severity Reaction Status Date / Time amoxicillin Allergy Mild Rash Verified 02/02/23 16:38 cat dander Allergy Mild Swelling Verified 02/02/23 16:38 of the Eye clavulanic acid Allergy Unknown Rash Verified 02/02/23 16:38 SUZE Inhibitors AdvReac Mild Cough Verified 02/02/23 16:38 adhesive AdvReac Mild BLISTERS Verified 02/02/23 16:38 surgical glue Allergy Severe Swelling Uncoded 12/21/22 15:09 other Allergy Intermediate Swelling Uncoded 12/21/22 15:09 Review of Systems Review of Systems: CONSTITUTIONAL: Denies malaise, chills, sweats, or fever. EYES: Denies redness, or discharge. ENT: Denies rhinorrhea, congestion, swollen lips, swollen tongue CARDIOVASCULAR: Denies chest pain, palpitations, or edema. RESPIRATORY: Denies cough or dyspnea. GASTROINTESTINAL: Denies abdominal pain, nausea, vomiting SKIN: Reports skin tear on the right lower leg. Reports redness, swelling tenderness of the left lower leg. Denies purulent drainage, vesicles, bullae, numbness, pain beyond proportion MUSCULOSKELETAL: Denies joint pain or myalgia. NEUROLOGIC: Denies headache. All systems reviewed & are unremarkable except as noted in HPI and below PMFSH Past Medical History Medical History (Updated 02/02/23 @ 16:49 by Jazmín Trevino NP) Accidental fall from bed Adenomatous colon polyp Aortic stenosis (~2017) Severe aortic stenosis noted on echocardiogram in April 2020 Arthritis (~2009) Asthma Calcification of left breast on mammography Chronic anticoagulation Chronic back pain CKD stage 3 due to type 2 diabetes mellitus (~05/2019) With history of temporary dialysis during lengthy hospitalization Colon, diverticulosis Diastolic congestive heart failure (~2018) Most recent echo Decemb
== END 2023-02-02 16:53 | disposition home or self-care (01) ==
PROVIDERS: Emergency Provider Nurse Practitioner; PCP Family Medicine
DX: L03.116 Cellulitis of left lower limb (principal); I35.0 Nonrheumatic aortic (valve) stenosis; M19.90 Unspecified osteoarthritis, unspecified site; I13.0 Hypertensive heart and chronic kidney disease with heart failure and stage 1 through stage 4 chronic kidney disease, or unspecified chronic kidney disease; E11.22 Type 2 diabetes mellitus with diabetic chronic kidney disease; N18.30 Chronic kidney disease, stage 3 unspecified; I50.30 Unspecified diastolic (congestive) heart failure; Z79.4 Long term (current) use of insulin; K21.9 Gastro-esophageal reflux disease without esophagitis; E11.39 Type 2 diabetes mellitus with other diabetic ophthalmic complication; H40.9 Unspecified glaucoma; H42 Glaucoma in diseases classified elsewhere; E11.42 Type 2 diabetes mellitus with diabetic polyneuropathy; M10.9 Gout, unspecified; E78.5 Hyperlipidemia, unspecified; M47.816 Spondylosis without myelopathy or radiculopathy, lumbar region; I27.20 Pulmonary hypertension, unspecified; G47.33 Obstructive sleep apnea (adult) (pediatric); M81.0 Age-related osteoporosis without current pathological fracture; J45.909 Unspecified asthma, uncomplicated; E55.9 Vitamin D deficiency, unspecified; Z85.42 Personal history of malignant neoplasm of other parts of uterus; Z96.653 Presence of artificial knee joint, bilateral; Z95.2 Presence of prosthetic heart valve; Z98.42 Cataract extraction status, left eye; Z98.41 Cataract extraction status, right eye; Z96.1 Presence of intraocular lens; Z79.82 Long term (current) use of aspirin
CPT/HCPCS: 99213; G0463

== ENCOUNTER 2023-02-14 20:26 | Emergency (ER) | payer OTHER, SELFPAY ==
--- NOTE | ~2023-02-14 | XR_ITS ---
EXAMINATION: XR chest 1V portable DATE: 02/14/2023 23:25 INDICATION: Shortness of breath. TECHNIQUE: A single frontal view of the chest was obtained. COMPARISON: Chest single view 12/05/2022, chest CT 11/16/2022 FINDINGS: There is mild atelectasis versus scarring in right mid and lower lung zones. No pleural eff usion or pneumothorax. There is enlargement of the cardiac silhouette. There is a prosthetic aortic v alve. There are surgical clips in right neck. IMPRESSION: 1. Mild atelectasis versus scarring in right mid and lower lung zones. 2. Enlarged cardiac silhouette, likely a combination of cardiomegaly and pericardial effusion. Reviewed, dictated and finalized at location E. IMPRESSION: 1. Mild atelectasis versus scarring in right mid and lower lung zones. 2. Enlarged cardiac silhouette, likely a combination of cardiomegaly and perica rdial effusion.
[2023-02-14 20:46] VITALS: BP 121/60; PULSE 102; RESP 20; TEMP 36.4; O2SAT 97
[2023-02-14 23:01] VITALS: RESP 30; O2SAT 95
[2023-02-14 23:09] LABS: Basophils Percent Auto 0.5 % (0.2-1.2); Eosinophils Absolute Auto 0.3 K/mm3 (0-0.3); Eosinophils Percent Auto 4.1 % (0-4.4); Hematocrit 36.8 % (37.0-47.0); Immature Granulocyte Absolute 0.02 K/mm3 (0.00-0.031); Immature Granulocyte Percent A 0.3 % (0-0.5); Lymphocytes Absolute Auto 0.87 K/mm3 (0.9-3.2); Lymphocytes Percent Auto 13.3 % (18.3-44.2); Mean Corpuscular HGB Conc 29.9 g/dl (32-36); Mean Corpuscular Hemoglobin 31.1 pg (26-34); Mean Platelet Volume 10.5 fl (7.4-10.4); Monocytes Absolute Auto 0.4 K/mm3 (0.1-0.6); Monocytes Percent Auto 6.3 % (2.6-8.5); Neutrophils Percent Auto 75.5 % (45.5-73.1); Platelet Count Result 150 k/mm3 (150-375); Red Blood Count 3.54 M/mm3 (4.2-5.4); Red Cell Distribution Width 13.9 % (11.5-14.5); White Blood Count 6.6 K/mm3 (4.5-10.0)
[2023-02-14 23:15] VITALS: PULSE 88; RESP 22; O2SAT 96
[2023-02-14 23:20] LABS: Alanine Aminotransferase 21 U/L (6-35); Albumin Level 3.9 g/dL (3.5-5.1); Alkaline Phosphatase 89 U/L (38-126); Anion Gap 7 mmol/L (8-16); Aspartate Amino Transferase 29 U/L (14-36); Bilirubin,Total 0.5 mg/dL (0.2-1.3); Blood Urea Nitrogen 28 mg/dL (7-17); Calcium 8.9 mg/dL (8.4-10.2); Carbon Dioxide 27 mmol/L (22-30); Chloride 106 mmol/L (98-107); Estimated CRCL calculation 61 ml/min; Estimated Glomerular Filt Rate 54; Glucose 279 mg/dL (65-110); Potassium 3.8 mmol/L (3.4-5.0); Sodium 140 mmol/L (137-145)
[2023-02-14 23:21] LABS: Lactic Acid Reflex 1.6 mmol/L (0.7-2.0)
[2023-02-14 23:29] LABS: Hypochromasia 1+ (NORMAL); NT Pro B Type Natriuretic Pept 2880 pg/mL (19.9-100); Platelet Estimate Adequate (Adequate); Schistocytes None Seen (NORMAL)
[2023-02-14 23:39] VITALS: PULSE 115; RESP 28; O2SAT 96
[2023-02-14 23:47] VITALS: PULSE 120; RESP 18
[2023-02-15] VITALS (8 sets, daily range): PULSE 94–126; RESP 15–26; O2SAT 100
--- NOTE | 2023-02-15 | ECG_ITS ---
Measurements Intervals [place] Rate: 110 P: [place]: 0 QRS: -42 QRSD: 96 T: 76 QT: 352 QTc: 477 Interpretive Statements ATRIAL FIBRILLATION WITH RAPID VENTRICULAR RESPONSE VENTRICULAR PREMATURE COMPLEXES LEFT AXIS DEVIATION POOR R WAVE PROGRESSION, ANTERIOR LEADS BORDERLINE ST-T WAVE ABNORMALITY- HIGH LATERAL LEADS ABNORMAL ECG COMPARED TO ECG 12/06/2022 15:47:17 HEART RATE HAS INCREASED Electronically Signed On 02-15-2023 6:30:01 CDT by Lucho Mederos D.O.
[2023-02-15] MEDS: GABAPENTIN 300 MG CAPSULE 600 MG PO (00:26)
[2023-02-15] MEDS: FUROSEMIDE INJ 40 MG/4 ML VIAL IV PUSH (00:27)
--- NOTE | 2023-02-15 00:27 | ED_ITS ---
HPI - General Adult General Chief complaint: Unspecified Stated complaint: neuropathy, cellulitis, head itches Time Seen by Provider: 02/14/23 22:21 Related Data Home Medications Medication Instructions Recorded Confirmed diltiazem HCl 120 mg 120 mg PO DAILY 11/12/20 02/07/23 capsule,extended release 24 hr latanoprost 0.005 % eye drops 1 drp EACH EYE HS 11/12/20 02/07/23 cyanocobalamin (vitamin B-12) 1,000 mcg PO DAILY 05/16/21 02/07/23 1,000 mcg tablet fluticasone propionate 50 1 spray intranasal DAILY PRN 05/16/21 02/07/23 mcg/actuation nasal Congestion spray,suspension acetaminophen 500 mg tablet 500 mg PO QID 11/25/21 02/07/23 insulin aspart U-100 100 unit/mL See Rx Instructions subcut TID PRN 11/25/21 02/07/23 (3 mL) subcutaneous pen (Novolog Hyperglycemia FlexPen U-100 Insulin aspart) ascorbic acid (vitamin C) 1,000 mg 1,000 mg PO DAILY 10/13/22 02/07/23 tablet (Vitamin C) aspirin 81 mg tablet 81 mg PO DAILY 10/13/22 02/07/23 calcium carbonate 500 mg calcium 500 mg PO DAILY 10/13/22 02/07/23 (1,250 mg) tablet cholecalciferol (vitamin D3) 25 1,000 mcg PO DAILY 10/13/22 02/07/23 mcg (1,000 unit) tablet (Vitamin D3) potassium chloride 20 mEq 20 meq PO DAILY 10/13/22 02/07/23 tablet,extended release insulin glargine U-300 conc 300 35 unit subcut DAILY 02/02/23 02/07/23 unit/mL (1.5 mL) subcutaneous pen (Toujeo SoloStar U-300 Insulin) ferrous sulfate 325 mg (65 mg 975 mg PO HS 02/07/23 02/07/23 iron) tablet metoprolol succinate 200 mg 200 mg PO DAILY 02/07/23 02/07/23 tablet,extended release 24 hr montelukast 10 mg tablet 10 mg PO DAILY 02/07/23 02/07/23 rivaroxaban 20 mg tablet (Xarelto) 20 mg PO DAILY 02/07/23 02/07/23 rosuvastatin 5 mg tablet 5 mg PO QHS 02/07/23 02/07/23 sacubitril 24 mg-valsartan 26 mg 1 tablet PO BID 02/07/23 02/07/23 tablet (Entresto) Allergies Allergy/AdvReac Type Severity Reaction Status Date / Time amoxicillin Allergy Mild Rash Verified 02/14/23 20:50 cat dander Allergy Mild Swelling Verified 02/14/23 20:50 of the Eye clavulanic acid Allergy Unknown Rash Verified 02/14/23 20:50 SUZE Inhibitors AdvReac Mild Cough Verified 02/14/23 20:50 adhesive AdvReac Mild BLISTERS Verified 02/14/23 20:50 surgical glue Allergy Severe Swelling Uncoded 02/07/23 14:37 other Allergy Intermediate Swelling Uncoded 02/07/23 14:37 [facility] Past Medical History Medical History Accidental fall from bed Adenomatous colon polyp Aortic stenosis (~2017) status post aortic valve replacement(09/18) Arthritis (~2009) Asthma Calcification of left breast on mammography Chronic anticoagulation Chronic back pain CKD (chronic kidney disease) stage 3, GFR 30-59 ml/min CKD stage 3 due to type 2 diabetes mellitus (~05/2019) With history of temporary dialysis during lengthy hospitalization Colon, diverticulosis Diastolic congestive heart failure (~2018) Most recent echo April 2020. Mild LVH. EF 60%. Mild mitral valve regurgitation Diverticulitis Essential (primary) hypertension External hemorrhoids without complication Frequent falls GAVE (gastric antral vascular ectasia) Noted on EGD 12/2020 GERD without esophagiti
[2023-02-15] MEDS: diphenhydrAMINE HCl INJ 50 MG/ML VIAL IV PUSH (00:55)
--- NOTE | 2023-02-15 02:20 | PC.NURSE ---
Patient had used the bedside commode multiple times independently.
--- NOTE | 2023-02-16 06:56 | ED.GENADULT ---
HPI - General Adult General Chief complaint: Unspecified Stated complaint: neuropathy, cellulitis, head itches Time Seen by Provider: 02/14/23 22:21 Related Data Home Medications Medication Instructions Recorded Confirmed diltiazem HCl 120 mg 120 mg PO DAILY 11/12/20 02/07/23 capsule,extended release 24 hr latanoprost 0.005 % eye drops 1 drp EACH EYE HS 11/12/20 02/07/23 cyanocobalamin (vitamin B-12) 1,000 mcg PO DAILY 05/16/21 02/07/23 1,000 mcg tablet fluticasone propionate 50 1 spray intranasal DAILY PRN 05/16/21 02/07/23 mcg/actuation nasal Congestion spray,suspension acetaminophen 500 mg tablet 500 mg PO QID 11/25/21 02/07/23 insulin aspart U-100 100 unit/mL See Rx Instructions subcut TID PRN 11/25/21 02/07/23 (3 mL) subcutaneous pen (Novolog Hyperglycemia FlexPen U-100 Insulin aspart) ascorbic acid (vitamin C) 1,000 mg 1,000 mg PO DAILY 10/13/22 02/07/23 tablet (Vitamin C) aspirin 81 mg tablet 81 mg PO DAILY 10/13/22 02/07/23 calcium carbonate 500 mg calcium 500 mg PO DAILY 10/13/22 02/07/23 (1,250 mg) tablet cholecalciferol (vitamin D3) 25 1,000 mcg PO DAILY 10/13/22 02/07/23 mcg (1,000 unit) tablet (Vitamin D3) potassium chloride 20 mEq 20 meq PO DAILY 10/13/22 02/07/23 tablet,extended release insulin glargine U-300 conc 300 35 unit subcut DAILY 02/02/23 02/07/23 unit/mL (1.5 mL) subcutaneous pen (Toujeo SoloStar U-300 Insulin) ferrous sulfate 325 mg (65 mg 975 mg PO HS 02/07/23 02/07/23 iron) tablet metoprolol succinate 200 mg 200 mg PO DAILY 02/07/23 02/07/23 tablet,extended release 24 hr montelukast 10 mg tablet 10 mg PO DAILY 02/07/23 02/07/23 rivaroxaban 20 mg tablet (Xarelto) 20 mg PO DAILY 02/07/23 02/07/23 rosuvastatin 5 mg tablet 5 mg PO QHS 02/07/23 02/07/23 sacubitril 24 mg-valsartan 26 mg 1 tablet PO BID 02/07/23 02/07/23 tablet (Entresto) Allergies Allergy/AdvReac Type Severity Reaction Status Date / Time amoxicillin Allergy Mild Rash Verified 02/14/23 20:50 cat dander Allergy Mild Swelling Verified 02/14/23 20:50 of the Eye clavulanic acid Allergy Unknown Rash Verified 02/14/23 20:50 SUZE Inhibitors AdvReac Mild Cough Verified 02/14/23 20:50 adhesive AdvReac Mild BLISTERS Verified 02/14/23 20:50 surgical glue Allergy Severe Swelling Uncoded 02/07/23 14:37 other Allergy Intermediate Swelling Uncoded 02/07/23 14:37 [facility] Past Medical History Medical History Accidental fall from bed Adenomatous colon polyp Aortic stenosis (~2017) status post aortic valve replacement(09/18) Arthritis (~2009) Asthma Calcification of left breast on mammography Chronic anticoagulation Chronic back pain CKD (chronic kidney disease) stage 3, GFR 30-59 ml/min CKD stage 3 due to type 2 diabetes mellitus (~05/2019) With history of temporary dialysis during lengthy hospitalization Colon, diverticulosis Diastolic congestive heart failure (~2018) Most recent echo April 2020. Mild LVH. EF 60%. Mild mitral valve regurgitation Diverticulitis Essential (primary) hypertension External hemorrhoids without complication Frequent falls GAVE (gastric antral vascular ectasia) Noted on EGD 12/2020 GERD without esophagitis Glaucoma Gout Hyperlipidemia (~2009) Hypertensive heart and chronic kidney disease with heart failure and stage 1 through stage 4 chronic kidney disease, or unspecified chronic kidney disease Intramuscular hematoma Lumbar spondylosis Lung nodule seen on imaging study Major depressive disorder, recurrent, unspecified Moderate pulmonary hypertension Obstructive sleep apnea (~2014) Uses a CPAP at nighttime. Osteoporosis Peripheral neuropathy Positive colorectal cancer screening using Cologuard test Postmenopausal Pulmonary nodule Toe fracture lt great toe fx. Type 2 diabetes mellitus with diabetic nephropathy, with long-term current use of insulin Unspecified asthma with status asthmaticus Uterine cancer
== END 2023-02-15 02:40 | disposition home or self-care (01) ==
PROVIDERS: Emergency Provider Emergency Medicine; PCP Family Medicine
DX: E11.42 Type 2 diabetes mellitus with diabetic polyneuropathy (principal); I87.2 Venous insufficiency (chronic) (peripheral); R09.81 Nasal congestion; E11.22 Type 2 diabetes mellitus with diabetic chronic kidney disease; I13.0 Hypertensive heart and chronic kidney disease with heart failure and stage 1 through stage 4 chronic kidney disease, or unspecified chronic kidney disease; N18.30 Chronic kidney disease, stage 3 unspecified; I50.30 Unspecified diastolic (congestive) heart failure; I35.0 Nonrheumatic aortic (valve) stenosis; I27.20 Pulmonary hypertension, unspecified; E11.39 Type 2 diabetes mellitus with other diabetic ophthalmic complication; H42 Glaucoma in diseases classified elsewhere; J45.909 Unspecified asthma, uncomplicated; M19.90 Unspecified osteoarthritis, unspecified site; M10.9 Gout, unspecified; M81.0 Age-related osteoporosis without current pathological fracture; K21.9 Gastro-esophageal reflux disease without esophagitis; G47.33 Obstructive sleep apnea (adult) (pediatric); Z96.653 Presence of artificial knee joint, bilateral; Z96.1 Presence of intraocular lens; Z85.42 Personal history of malignant neoplasm of other parts of uterus; Z86.010 Personal history of colon polyps; Z90.710 Acquired absence of both cervix and uterus; Z98.42 Cataract extraction status, left eye; Z98.41 Cataract extraction status, right eye; Z90.49 Acquired absence of other specified parts of digestive tract; Z79.4 Long term (current) use of insulin; Z79.82 Long term (current) use of aspirin; Z79.01 Long term (current) use of anticoagulants; I48.91 Unspecified atrial fibrillation; I49.3 Ventricular premature depolarization; R94.31 Abnormal electrocardiogram [ECG] [EKG]
CPT/HCPCS: 36415; 71045; 80053; 83605; 83880; 85025; 93005; 96374; 96375; 99284; A9270; J1200; J1940

== ENCOUNTER 2023-02-22 12:54 | Outpatient (CLI) | payer OTHER, SELFPAY ==
--- NOTE | ~2023-02-22 | CT_ITS ---
EXAMINATION:CT diagnostic chest wo con DATE: 02/22/2023 13:27 INDICATION: Acute respiratory failure with hypoxia. Lung nodule. TECHNIQUE: Computed tomography (CT) of the chest was performed without intravenous contrast. Automate d exposure control and iterative reconstruction technique were employed. The dose-length product (DLP ) was 388.21 mGy-cm. COMPARISON: Chest CT 11/16/2022, 11/11/2020 FINDINGS: There is chronic mild atelectasis in right upper lobe. There is mosaic attenuation in the l ungs, likely small airways disease. There are mild groundglass opacities bilaterally. There is chroni c septal thickening in inferior right lung. No bronchiectasis or honeycombing. There is a stable trac e right pleural effusion. Cardiomegaly is noted. There are coronary artery calcifications. There are changes of aortic valve replacement. There is a moderate-sized pericardial effusion. The central pulm onary arteries are enlarged, consistent with pulmonary arterial hypertension. There are changes of ch olecystectomy. There is a chronic 2.1 cm low-attenuation mass in right adrenal gland, consistent with an adenoma. There is severe thoracic spondylosis. IMPRESSION: 1. Mild chronic lung disease. 2. Cardiomegaly. 3. Chronic moderate-sized pericardial effusion. Reviewed, dictated and finalized at location E.
== END 2023-02-22 12:55 | disposition home or self-care (01) ==
PROVIDERS: PCP Family Medicine; Visit Provider Physician Assistant
DX: R91.1 Solitary pulmonary nodule (principal); J96.01 Acute respiratory failure with hypoxia; J44.9 Chronic obstructive pulmonary disease, unspecified; I51.7 Cardiomegaly; I31.39 Other pericardial effusion (noninflammatory)
CPT/HCPCS: 71250

== ENCOUNTER 2023-03-08 09:02 | Outpatient (CLI) | payer OTHER, SELFPAY ==
--- NOTE | ~2023-03-08 | MM_ITS ---
EXAMINATION: MM screening florentino BI w tyrel HISTORY: Screening mammogram TECHNIQUE: Craniocaudal and mediolateral oblique 3-D tomosynthesis images were obtained and synthetic 2-D images were generated. CAD analysis was submitted and interpreted. COMPARISON: July 17, 2021, August 17, 2018 bilateral screening mammogram examinations BREAST PARENCHYMAL COMPOSITION: There are scattered areas of fibroglandular density. FINDINGS: Scattered bilateral benign calcifications. There is no evidence of suspicious mass, calcifi cation, or architectural distortion to suggest malignancy in either breast. There has been no suspici ous interval change. IMPRESSION: 1. No mammographic evidence of malignancy. 2. Recommend routine screening mammography in one year. BI-RADS Category 1: Negative Reviewed, dictated and finalized at location A.
== END 2023-03-08 09:03 | disposition home or self-care (01) ==
PROVIDERS: PCP Family Medicine; Visit Provider Family Medicine
DX: Z12.31 Encounter for screening mammogram for malignant neoplasm of breast (principal)
CPT/HCPCS: 77063; 77067

== ENCOUNTER 2023-04-05 09:03 | Outpatient (CLI) | payer OTHER, SELFPAY ==
--- NOTE | 2023-04-28 11:52 | WPDSLEEPSTUD ---
Sleep Study Date of Study: 04/05/23 Ordering Provider: DELANEY Moreno Interpreting Physician: Theresa Lynch MD Sleep Study Type: Split Polysomnogram Height: 1.7 m Weight: 136.532 kg Body Mass Index: 47.1 Neck Circumference (inches): 15.5 Sanders: 8 Reason for Sleep Study History of sleep apnea diagnosed 2014, has been off CPAP for years. Daytime hypersomnia; recent increased respiratory problems and diagnosis of CHF *2014 sleep study = moderate sleep apnea with AHI 16, desaturation to 73%, BMI was 51.1., lost weight and quit using, now has increased weight gain, BMI is 47. Sleep History Laurel Rucker is a 73 year old female with history of aortic stenosis, asthma, CKD, diastolic congestive heart failure, hypertension, GERD, glaucoma, dyslipidemia, depression, peripheral neuropathy, type 2 diabetes, history of uterine cancer s/p hysterectomy who presented to the sleep lab for re-evaluation of sleep apnea. She was diagnosed with moderate sleep apnea in 2014 and wore CPAP for a few years, then stopped wearing CPAP after she lost over 100 lb. She occasionally dozes off during the day and wakes up gasping for air at night. She is willing to re-attempt PAP therapy. She never awakens at night with heartburn, belching or cough. She rarely snores and never snores loudly enough that others complain. She occasionally has trouble sleeping when she has a cold. She rarely suddenly wakes up gasping for breath during the night. She rarely has breathing problems at night. She never sweats excessively at night. She occasionally notices her heart pounding or beating irregularly during the night. She occasionally falls asleep during the day. She occasionally falls asleep involuntarily. She never falls asleep while driving. She never experiences loss of muscle tone with strong emotion. She never feels paralyzed on waking or falling asleep. She never experiences vivid dreams upon waking or falling asleep. She occasionally feels afraid of going to sleep. She never has nightmares. She occasionally recalls her dreams. She frequently has thoughts racing through her mind. She occasionally feels sad or depressed. She rarely feels anxiety or worry about things. She occasionally notices parts of her body jerk. She occasionally kicks during the night. She rarely feels crawling or aching feelings in her legs. She rarely feels leg pain at night. She rarely grinds her teeth during sleep and never has morning jaw pain. She constantly feels bothered by pain during the day and is occasionally awakened by pain during the night. She constantly wakes up feeling stiff, sore, and achy in the morning. She frequently wakes with pain in her neck, spine, or joints. Normal bedtime is around 11pm to midnight on the weekdays and same on the weekends, taking about 1 hour to fall asleep. She typically gets about 5 to 6 hours of sleep per night. Her wake up time is anywhere from 6am to 10am on the weekdays and same on the weekends. She typically wakes up around once per night, awake for about 1 hour and she will get on her phone, check emails or [employer]. She either reads or watches TV before falling asleep. She takes naps in the afternoon or evening but often does not feel refreshed after a nap. Habits: Never tobacco smoker. Occasional caffeine use ? diet soda. No alcohol or recreational substances. [facility] Past Medical History Medical History (Updated 04/28/23 @ 12:07 by Theresa Lynch MD) Accidental fall from bed Adenomatous colon polyp Ankle fracture Aortic stenosis (~2017) status post aortic valve replacement(09/18) Arthritis (~2009) Asthma Calcification of left breast on mammography Chronic anticoagulation Chronic back pain CKD (chronic kidney disease) stage 3, GFR 30-59 ml/min CKD stage 3 due to type 2 diabetes mellitus (~05/2019) With history of temporary dialysis during lengthy hospitalization Colon, diverticulosis Diastolic congestive heart failure (~2018) Most r
[2023-04-28 11:55] VITALS: BMI 47.1
== END 2023-04-06 07:23 | disposition home or self-care (01) ==
PROVIDERS: PCP Family Medicine; Visit Provider Physician Assistant
DX: G47.10 Hypersomnia, unspecified (principal); G47.33 Obstructive sleep apnea (adult) (pediatric)
CPT/HCPCS: 95811

== ENCOUNTER 2023-04-11 15:58 | Emergency (ER) | payer OTHER, SELFPAY ==
--- NOTE | 2023-04-11 16:02 | ED.BACK ---
HPI - Back Pain/Injury General Chief Complaint: Back Pain/Injury Stated Complaint: Back pain Time Seen by Provider: 04/11/23 16:01 Source: patient and old records reviewed Mode of arrival: ambulatory Limitations: no limitations History of Present Illness HPI Narrative: Laurel is a 73-year-old female patient presenting to the clinic today with complaints left-sided low back pain for the past 9 days. History of chronic low back pain. She reports she has been having to sleep on a different mattress for the past 9 days and other home as she is having mold cleaned out of the basement of her home. She denies any saddle anesthesia or loss of bowel or bladder. She denies any injury. Related Data Home Medications Medication Instructions Recorded Confirmed diltiazem HCl 120 mg 120 mg PO DAILY 11/12/20 04/11/23 capsule,extended release 24 hr latanoprost 0.005 % eye drops 1 drp EACH EYE HS 11/12/20 04/11/23 cyanocobalamin (vitamin B-12) 1,000 mcg PO DAILY 05/16/21 04/11/23 1,000 mcg tablet fluticasone propionate 50 1 spray intranasal DAILY PRN 05/16/21 04/11/23 mcg/actuation nasal Congestion spray,suspension acetaminophen 500 mg tablet 500 mg PO QID 11/25/21 04/11/23 insulin aspart U-100 100 unit/mL See Rx Instructions subcut TID PRN 11/25/21 04/11/23 (3 mL) subcutaneous pen (Novolog Hyperglycemia FlexPen U-100 Insulin aspart) ascorbic acid (vitamin C) 1,000 mg 1,000 mg PO DAILY 10/13/22 04/11/23 tablet (Vitamin C) aspirin 81 mg tablet 81 mg PO DAILY 10/13/22 04/11/23 calcium carbonate 500 mg calcium 500 mg PO DAILY 10/13/22 04/11/23 (1,250 mg) tablet cholecalciferol (vitamin D3) 25 1,000 mcg PO DAILY 10/13/22 04/11/23 mcg (1,000 unit) tablet (Vitamin D3) insulin glargine U-300 conc 300 35 unit subcut DAILY 02/02/23 04/11/23 unit/mL (1.5 mL) subcutaneous pen (Toujeo SoloStar U-300 Insulin) ferrous sulfate 325 mg (65 mg 975 mg PO HS 02/07/23 04/11/23 iron) tablet metoprolol succinate 200 mg 200 mg PO DAILY 02/07/23 04/11/23 tablet,extended release 24 hr montelukast 10 mg tablet 10 mg PO DAILY 02/07/23 04/11/23 rivaroxaban 20 mg tablet (Xarelto) 20 mg PO DAILY 02/07/23 04/11/23 sacubitril 24 mg-valsartan 26 mg 1 tablet PO BID 02/07/23 04/11/23 tablet (Entresto) Allergies Allergy/AdvReac Type Severity Reaction Status Date / Time amoxicillin Allergy Mild Rash Verified 04/11/23 16:03 cat dander Allergy Mild Swelling Verified 04/11/23 16:03 of the Eye clavulanic acid Allergy Unknown Rash Verified 04/11/23 16:03 SUZE Inhibitors AdvReac Mild Cough Verified 04/11/23 16:03 adhesive AdvReac Mild BLISTERS Verified 04/11/23 16:03 surgical glue Allergy Severe Swelling Uncoded 04/11/23 16:03 other Allergy Intermediate Swelling Uncoded 04/11/23 16:03 Review of Systems Review of Systems: Pertinent positives per HPI. Patient denies any fever, chills, rash, headache, visual changes, dizziness, cough, runny nose, sore throat, shortness of breath, chest pain, palpitations, nausea, vomiting, diarrhea, constipation, abdominal pain, or any urinary issues. [facility] Past Medical History Medical History Accidental fall from bed Adenomatous colon polyp Aortic stenosis (~2017) status post aortic valve replacement(09/18) Arthritis (~2009) Asthma Calcification of left breast on mammography Chronic anticoagulation Chronic back pain CKD (chronic kidney disease) stage 3, GFR 30-59 ml/min CKD stage 3 due to type 2 diabetes mellitus (~05/2019) With history of temporary dialysis during lengthy hospitalization Colon, diverticulosis Diastolic congestive heart failure (~2018) Most recent echo April 2020. Mild LVH. EF 60%. Mild mitral valve regurgitation Diverticulitis Essential (primary) hypertension External hemorrhoids without complication Frequent falls GAVE (gastric antral vascular ectasia) Noted on EGD 12/2020 GERD without esophagitis Glaucoma Gout
[2023-04-11 16:09] VITALS: BP 130/59; PULSE 72; RESP 16; TEMP 37.1; O2SAT 95
[2023-04-11 16:13] VITALS: BP 130/59; PULSE 72; RESP 16; TEMP 37.1; O2SAT 95
== END 2023-04-11 16:21 | disposition home or self-care (01) ==
PROVIDERS: Emergency Provider Nurse Practitioner Family; PCP Family Medicine
DX: M54.50 Low back pain, unspecified (principal); I13.0 Hypertensive heart and chronic kidney disease with heart failure and stage 1 through stage 4 chronic kidney disease, or unspecified chronic kidney disease; E11.22 Type 2 diabetes mellitus with diabetic chronic kidney disease; N18.30 Chronic kidney disease, stage 3 unspecified; I50.30 Unspecified diastolic (congestive) heart failure; Z79.4 Long term (current) use of insulin; K21.9 Gastro-esophageal reflux disease without esophagitis; M10.9 Gout, unspecified; G47.33 Obstructive sleep apnea (adult) (pediatric); E11.42 Type 2 diabetes mellitus with diabetic polyneuropathy; Z85.42 Personal history of malignant neoplasm of other parts of uterus; E55.9 Vitamin D deficiency, unspecified; Z95.2 Presence of prosthetic heart valve; Z96.653 Presence of artificial knee joint, bilateral; Z98.42 Cataract extraction status, left eye; Z98.41 Cataract extraction status, right eye; Z96.1 Presence of intraocular lens; M19.90 Unspecified osteoarthritis, unspecified site; Z79.82 Long term (current) use of aspirin; Z79.01 Long term (current) use of anticoagulants
CPT/HCPCS: 99211; G0463

== ENCOUNTER 2023-04-12 14:52 | Emergency (ER) | payer OTHER, SELFPAY ==
[2023-04-12] VITALS (25 sets, daily range): BP systolic 109–141; BP diastolic 56–101; PULSE 60–96; RESP 13–28; TEMP 36.7; O2SAT 91–98
--- NOTE | ~2023-04-12 | XR_ITS ---
EXAM: XR ankle RT min 3V, XR foot RT min 3V, XR tibia fibula RT 2V DATE: 04/13/2023 16:26 HISTORY: pain . COMPARISON: None available. FINDINGS: Decreased mineralization. Uncomplicated appearing right knee arthroplasty. No fracture or dislocation. No lytic or blastic lesion. Achilles and plantar enthesopathy. Mild degenerative changes at the ankle joint and multiple midfoot joints. No erosion or periosteal change. Scattered vascular calcifications. IMPRESSION: No acute osseous finding in the right tibia/fibula, ankle, or foot. Reviewed, dictated and finalized at location K. LE BATTERY TECHNICIAN IMPRESSION: No acute osseous finding in the right tibia/fibula, ankle, or foot. IMPRESSION: No acute osseous finding in the right tibia/fibula, ankle, or foot.
--- NOTE | ~2023-04-12 | CT_ITS ---
EXAMINATION: CT cervical spine wo con DATE: 04/12/2023 15:42 INDICATION: Head injury. TECHNIQUE: Computed tomography (CT) of the cervical spine was performed without intravenous contrast. Automated exposure control and iterative reconstruction technique were employed. The dose-length pro duct was 324.63 mGy-cm. COMPARISON: None FINDINGS: There is 8 degrees dextrocurvature of cervical spine. There is kyphosis of cervical spine. Vertebral body heights are normal. Intervertebral disc heights are normal. The following disc levels are specifically discussed: C2-C3: There is no uncovertebral joint osteoarthritis. There is moderate and severe left facet joint osteoarthritis. There is mild left neural foraminal stenosis. There is no central canal stenosis. C3-C4: There is no uncovertebral joint osteoarthritis. There is severe right and mild left facet join t osteoarthritis. There is mild right neural foraminal stenosis. There is no central canal stenosis. C4-C5: There is no uncovertebral joint osteoarthritis. There is moderate right facet joint osteoarthr itis. There is no neural foraminal stenosis. There is no central canal stenosis. C5-C6: There is no uncovertebral joint osteoarthritis. There is severe right and mild left facet join t osteoarthritis. There is mild right neural foraminal stenosis. There is no central canal stenosis. C6-C7: There is no uncovertebral joint osteoarthritis. There is no facet joint osteoarthritis. There is no neural foraminal stenosis. There is no central canal stenosis. C7-T1: There is no uncovertebral joint osteoarthritis. There is severe bilateral facet joint osteoart hritis. There is mild bilateral neural foraminal stenosis. There is no central canal stenosis. IMPRESSION: 1. No fracture. 2. Mild cervical spondylosis. Reviewed, dictated and finalized at location A. IC BUSINESS MANAGER
--- NOTE | ~2023-04-12 | CT_ITS ---
EXAMINATION: CT thoracic lumbar wo con DATE: 04/12/2023 18:05 INDICATION: glf, pain . TECHNIQUE: Computed tomography (CT) of the thoracic and lumbar spine was performed without intravenou s contrast. The dose-length product was 2224.81 mGy-cm. COMPARISON: 07/13/2022 FINDINGS: THORACIC SPINE: Vertebral body alignment intact. Vertebral body heights preserved. Multilevel moderate and severe deg fernando of disc space narrowing. No traumatic malalignment or fracture. Considerable motion lungs. Cardi ac valve replacement. LUMBAR SPINE: 5 nonrib-bearing lumbar-type vertebral bodies. Mild lumbar scoliosis. Pedicles intact. Mild grade 1 a nterolisthesis at L4-5 and grade 1 retrolisthesis at L5-S1, unchanged. Otherwise normal vertebral bod y alignment. Vertebral body heights preserved. Multilevel moderate and severe degrees of disc space n arrowing and facet sclerosis/hypertrophy. IMPRESSION: No acute fracture or traumatic malalignment in the thoracic or lumbar spine. Reviewed, dictated and finalized at location K. SWAMPER
--- NOTE | ~2023-04-12 | XR_ITS ---
EXAM: XR hip LT 2V w AP pelvis DATE: 04/12/2023 18:10 HISTORY: glf, pain L prox thigh/hip . COMPARISON: 10/11/2020. FINDINGS: Exam limited by body habitus and portable technique. Degenerative changes in the lumbar spi ne SI joints and hips and pubic symphysis. No definite fracture or dislocation. IMPRESSION: No definite acute osseous finding in the pelvis or left hip. Reviewed, dictated and finalized at location K. HASING AGENT
--- NOTE | ~2023-04-12 | CT_ITS ---
EXAMINATION: CT brain wo con DATE: 04/12/2023 15:41 INDICATION: Head injury. TECHNIQUE: Computed tomography (CT) of the head was performed without intravenous contrast. The mA wa s adjusted according to patient size. Iterative reconstruction technique was employed. The dose-lengt h product was 681.00 mGy-cm. COMPARISON: Head CT 10/03/2022 FINDINGS: There are scattered areas of low attenuation in the cerebral white matter. There is no intr acranial hemorrhage, acute infarction, or abnormal intracranial mass lesion. The ventricles are derrick l in size. There is a right frontal lateral scalp hematoma. There are likely changes of ocular lens r eplacement surgeries. The paranasal sinuses are clear. The mastoid air cells are normal. IMPRESSION: 1. Stable moderate nonspecific cerebral white matter disease, which likely represents chronic small v essel ischemic disease. Reviewed, dictated and finalized at location A. TEACHER IMPRESSION: 1. Stable moderate nonspecific cerebral white matter disease, which likely repr esents chronic small vessel ischemic disease.
--- NOTE | 2023-04-12 18:10 | ED.FALL ---
HPI - Fall General Chief Complaint: Fall Stated Complaint: glf Time Seen by Provider: 04/12/23 17:07 Source: patient Mode of arrival: EMS Limitations: no limitations History of Present Illness HPI Narrative: patient is a 73-year-old female who presents the ED via EMS with report of a fall. Patient lives at home alone. Reports she was walking into her house today and tripped on the steps going into her kitchen. She states her legs just gave out on her. She did hit her head on the crown molding of the door. Denies LOC. She is able to call for 911 through her [employer] watch as she was unable to get up off the ground by herself. Patient complains of pain to her head, mid to lower back, left hip. She does also complain of pain to bilateral feet, but states she typically takes gabapentin and Tylenol for her diabetic peripheral neuropathy and has not taken these today. Denies chest pain, shortness breath, dizziness, lightheadedness, nausea, vomiting, vision changes. Patient is on xarelto. Hx aortic valve replacement. Related Data Home Medications Medication Instructions Recorded Confirmed diltiazem HCl 120 mg 120 mg PO DAILY 11/12/20 04/11/23 capsule,extended release 24 hr latanoprost 0.005 % eye drops 1 drp EACH EYE HS 11/12/20 04/11/23 cyanocobalamin (vitamin B-12) 1,000 mcg PO DAILY 05/16/21 04/11/23 1,000 mcg tablet fluticasone propionate 50 1 spray intranasal DAILY PRN 05/16/21 04/11/23 mcg/actuation nasal Congestion spray,suspension acetaminophen 500 mg tablet 500 mg PO QID 11/25/21 04/11/23 insulin aspart U-100 100 unit/mL See Rx Instructions subcut TID PRN 11/25/21 04/11/23 (3 mL) subcutaneous pen (Novolog Hyperglycemia FlexPen U-100 Insulin aspart) ascorbic acid (vitamin C) 1,000 mg 1,000 mg PO DAILY 10/13/22 04/11/23 tablet (Vitamin C) aspirin 81 mg tablet 81 mg PO DAILY 10/13/22 04/11/23 calcium carbonate 500 mg calcium 500 mg PO DAILY 10/13/22 04/11/23 (1,250 mg) tablet cholecalciferol (vitamin D3) 25 1,000 mcg PO DAILY 10/13/22 04/11/23 mcg (1,000 unit) tablet (Vitamin D3) insulin glargine U-300 conc 300 35 unit subcut DAILY 02/02/23 04/11/23 unit/mL (1.5 mL) subcutaneous pen (Toujeo SoloStar U-300 Insulin) ferrous sulfate 325 mg (65 mg 975 mg PO HS 02/07/23 04/11/23 iron) tablet metoprolol succinate 200 mg 200 mg PO DAILY 02/07/23 04/11/23 tablet,extended release 24 hr montelukast 10 mg tablet 10 mg PO DAILY 02/07/23 04/11/23 rivaroxaban 20 mg tablet (Xarelto) 20 mg PO DAILY 02/07/23 04/11/23 sacubitril 24 mg-valsartan 26 mg 1 tablet PO BID 02/07/23 04/11/23 tablet (Entresto) Allergies Allergy/AdvReac Type Severity Reaction Status Date / Time amoxicillin Allergy Mild Rash Verified 04/11/23 16:03 cat dander Allergy Mild Swelling Verified 04/11/23 16:03 of the Eye clavulanic acid Allergy Unknown Rash Verified 04/11/23 16:03 SUZE Inhibitors AdvReac Mild Cough Verified 04/11/23 16:03 adhesive AdvReac Mild BLISTERS Verified 04/11/23 16:03 surgical glue Allergy Severe Swelling Uncoded 04/11/23 16:03 other Allergy Intermediate Swelling Uncoded 04/11/23 16:03 Review of Systems Review of Systems: CONSTITUTIONAL: Denies fever, chills, or sweats. EENT: Denies vision changes, rhinorrhea, congestion, sore throat. CARDIOVASCULAR: Denies chest pain. RESPIRATORY: Denies dyspnea. GASTROINTESTINAL: Denies abdominal pain, nausea, vomiting. MUSCULOSKELETAL: See HPI. NEUROLOGIC: See HPI. All systems reviewed & are unremarkable except as noted in HPI and below PMFSH Past Medical History Medical History Accidental fall from bed Adenomatous colon polyp Aortic stenosis (~2017) status post aortic valve replacement(09/18) Arthritis (~2009) Asthma Calcification of left breast on mammography Chronic anticoagulation Chronic back pain CKD (chronic kidney disease) stage 3, GFR 30-59 ml/min CKD stage 3 due to type 2 diabet
[2023-04-12] MEDS: ACETAMINOPHEN 500 MG TABLET 1000 MG PO (18:17)
== END 2023-04-12 21:00 | disposition home or self-care (01) ==
PROVIDERS: Emergency Provider Physician Assistant; PCP Family Medicine
DX: S76.012A Strain of muscle, fascia and tendon of left hip, initial encounter (principal); S05.11XA Contusion of eyeball and orbital tissues, right eye, initial encounter; I13.0 Hypertensive heart and chronic kidney disease with heart failure and stage 1 through stage 4 chronic kidney disease, or unspecified chronic kidney disease; E11.22 Type 2 diabetes mellitus with diabetic chronic kidney disease; N18.30 Chronic kidney disease, stage 3 unspecified; I50.30 Unspecified diastolic (congestive) heart failure; Z79.899 Other long term (current) drug therapy; Z79.01 Long term (current) use of anticoagulants; Z79.4 Long term (current) use of insulin; W10.8XXA Fall (on) (from) other stairs and steps, initial encounter; Y92.009 Unspecified place in unspecified non-institutional (private) residence as the place of occurrence of the external cause
CPT/HCPCS: 36415; 70450; 72125; 72128; 72131; 73502; 73590; 73610; 73630; 80048; 82607; 82728; 82746; 83540; 83550; 85025; 99284; A9270; L0140

== ENCOUNTER 2023-04-13 15:04 | Inpatient (IN) | payer OTHER, SELFPAY ==
--- NOTE | ~2023-04-13 | XR_ITS ---
EXAMINATION: XR chest 2V Exam Date/Time: 04/24/2023 13:40 PACKING CLERK HISTORY: sob Comparison: 04/22/2023. RESULT: Lines, tubes, and devices: Cardiac valve replacement. Lungs and pleura: Similar diffuse reticular opacities. Patchy airspace disease in the left medial lakesha ng and right mid and lower lung. Mild right costophrenic angle blunting. Cardiomediastinal silhouette: Stable. Other: No acute osseous or upper abdominal finding. IMPRESSION: Developing patchy airspace disease may reflect atelectasis or focal areas of alveolar edema, overlyin g moderate diffuse interstitial edema. Small right pleural effusion. Infection is not excluded. Reviewed, dictated and finalized at location K. ING CLERK IMPRESSION: Developing patchy airspace disease may reflect atelectasis or focal areas of al veolar edema, overlying moderate diffuse interstitial edema. Small right pleura l effusion. Infection is not excluded.
--- NOTE | ~2023-04-13 | XR_ITS ---
EXAMINATION: XR chest 1V portable DATE: 04/15/2023 12:57 INDICATION: Acute respiratory failure. TECHNIQUE: A single frontal view of the chest was obtained on 2 radiographs. COMPARISON: Chest single view 02/14/2023, thoracic spine CT 04/12/2023 FINDINGS: There is a diffuse interstitial pattern, consistent mild pulmonary edema. No pleural effusi on or pneumothorax. There is enlargement of the cardiac silhouette. There are changes of aortic valve replacement. IMPRESSION: 1. Mild pulmonary edema. 2. Enlargement of the cardiac silhouette, likely a combination of cardiomegaly and pericardial effusi on. Reviewed, dictated and finalized at location A. LIFT DRIVER IMPRESSION: 1. Mild pulmonary edema. 2. Enlargement of the cardiac silhouette, likely a combination of cardiomegaly and pericardial effusion.
--- NOTE | ~2023-04-13 | XR_ITS ---
Portable chest x-ray Comparison: 04/24/2023 Clinical History: Shortness of breath Findings: There is hazy bibasilar airspace disease. Cardiomediastinal silhouette is stable status p ost aortic valve replacement. Bones and soft tissues are unremarkable. Impression: Hazy bibasilar airspace disease, most compatible mild pulmonary edema. Stable enlarged cardiac silhouette. This could reflect cardiomegaly and/or pericardial effusion. Reviewed, dictated and finalized at location . E SHOW MANAGER Impression: Hazy bibasilar airspace disease, most compatible mild pulmonary edema. Stable enlarged cardiac silhouette. This could reflect cardiomegaly and/or renny cardial effusion.
--- NOTE | ~2023-04-13 | MR_ITS ---
EXAMINATION: MR ankle RT wo con DATE: 04/19/2023 09:59 INDICATION: Right ankle sprain with inability to bear weight TECHNIQUE: Magnetic resonance imaging (MRI) of the right ankle was performed without intravenous cont rast. Sequences included sagittal, coronal, and axial proton-density weighted fast spin echo without and with fat saturation. COMPARISON: None. FINDINGS: Medial ankle ligaments: Small amount of heterotopic ossification at the medial malleolar side of the otherwise intact appeari ng deep deltoid ligament, likely sequela of chronic sprain. The superficial deltoid ligaments as well as the spring ligament complex are normal. Lateral ankle ligaments: The anterior and posterior inferior tibiofibular ligaments are normal. The anterior talofibular, calc aneofibular and posterior talofibular ligaments are normal. Tendons: Fusiform thickening of the Achilles tendon tendon centered approximately 5 cm proximal to the calcane al insertion consistent with mild tendinosis without discrete tear. There is small amount of fluid ex tending along the peroneus longus and brevis tendons consistent with mild tenosynovitis. There is mil d tendinopathy and full-thickness longitudinal split tear of the peroneus brevis tendon beginning at the retromalleolar groove approximately 2.5 cm proximal to the tip of the lateral malleolus and exten ding approximately 1.8 cm distal to the level of the tip of the lateral malleolus. The tendon bundles are medially and laterally to either side of the peroneus longus tendon. There is also mil d peroneus longus tendinopathy and small partial-thickness split tear along the anterior margin of th e tendon extending for approximately 2 cm proximal to distal centered at the tip of the lateral malle olus. The tibialis anterior and extensor hallucis longus and extensor digitorum longus tendons are no rmal. The tibialis posterior, flexor digitorum longus and flexor hallucis longus tendons are normal. Plantar fascia: Moderate-sized plantar calcaneal spur with mild enthesopathy without discrete tear at the proximal as pect of the central component of the plantar aponeurosis. No significant associated marrow or soft ti ssue edema to suggest acute plantar fasciitis. Bones/other: Deep oblique coronally oriented nondisplaced intra-articular fracture at the posterior malleolus of t he distal tibia which involves approximately 25% of the articular surface area of the tibial plafond. No evident fracture gap or incongruity along the articular cortex. No other fractures identified. Mi ld tibiotalar osteoarthritis. Moderate osteoarthritis with scattered cortical irregularity and associ ated subarticular edema-like and cystlike changes at the calcaneocuboid joint as well as a few of the tarsal metatarsal joints. Mild osteoarthritis at the remaining joints in the mid and hindfoot. There is increased fluid signal and moderate fatty atrophy of the intrinsic musculature of the foot sugges tive of acute on chronic innervation change as can be seen in the setting of diabetes. Fluid: Small ankle joint effusion. Mild subcutaneous edema about the ankle and visualized foot. IMPRESSION: 1. Nondisplaced intra-articular fracture at the posterior malleolus. No associated acute injury at th e medial lateral malleoli are associated stabilizing ligaments. 2. Peroneal tenosynovitis with mild tendinopathy and longitudinal split tears of both the peroneus lo ngus and brevis tendons. 3. Polyarticular osteoarthritis, moderate severity at the calcaneocuboid and a few tarsal metatarsal joints and mild at the right ankle and remaining joints in the mid and hindfoot. 4. Mild Achilles tendinosis without tear. 5. Mild chronic plantar enthesopathy without tear or acute plantar fasciitis. Reviewed, dictated and finalized at location A. Electronically signed by Chino Mercado
--- NOTE | ~2023-04-13 | US_ITS ---
EXAMINATION: US renal BI DATE: 04/22/2023 11:09 INDICATION: Acute on chronic kidney disease TECHNIQUE: Multiple grayscale and Doppler ultrasound images of the kidneys were obtained. COMPARISON: 12/20/2019 FINDINGS: The right kidney measures 9.2 x 5.3 x 6.4 cm. The left kidney measures 10.7 x 5.0 x 4.6 cm. The kidneys demonstrate normal parenchymal echogenicity. There is no hydronephrosis. The bladder is normal. IMPRESSION: 1. Normal kidneys without hydronephrosis. Reviewed, dictated and finalized at location F. E SHARPENER
--- NOTE | ~2023-04-13 | CT_ITS ---
Non-contrast Head CT History: Dysphasia COMPARISON: 04/12/2023 Technique: Axial non-contrast imaging of the brain was performed. Dose reduction technique was used on this scan by utilizing automated exposure control and iterative reconstruction technique. The dose -length product (DLP) was 681.00 mGy-cm. Findings: There is no evidence of intracranial hemorrhage, mass lesion, or acute infarct. Brain par enchyma appears normal. The ventricles and subarachnoid spaces are normal in size. The calvarium ap pears normal. The visualized paranasal sinuses and mastoid air cells are clear. There is prominent s oft tissue swelling over the right cheek/zygomatic region. Impression: No intracranial abnormality. Prominent soft tissue swelling over the right cheek/right zygomatic region. Reviewed, dictated and finalized at [facility]. HOTHERAPIST COUNSELOR Impression: No intracranial abnormality. Prominent soft tissue swelling over the right cheek/right zygomatic region.
--- NOTE | ~2023-04-13 | XR_ITS ---
EXAMINATION: XR chest 1V portable INDICATION: Hypoxia TECHNIQUE: Portable AP chest at 0551 hours COMPARISON: 04/15/2023 FINDINGS: A mild diffuse interstitial pattern persists without significant change. The cardiac silhou ette remains enlarged but unchanged. No pleural effusion or pneumothorax. Changes of endoluminal madhu fact replacement are noted. IMPRESSION: 1. Mild pulmonary edema without significant change. 2. Persistent enlargement of the cardiac silhouette, consistent with cardiomegaly and/or pericardial effusion. Reviewed, dictated and finalized at location F. OLOGY TEACHER IMPRESSION: 1. Mild pulmonary edema without significant change. 2. Persistent enlargement of the cardiac silhouette, consistent with cardiomega ly and/or pericardial effusion.
[2023-04-13 15:07] VITALS: BP 132/75; PULSE 72; RESP 19; TEMP 36.3; O2SAT 94
[2023-04-13] MEDS: HYDROcodone/acetaminophen (*CRX) 5-325 MG TABLET 1 TAB PO (15:35)
[2023-04-13 16:27] VITALS: BP 132/89; PULSE 68; RESP 15; O2SAT 93
[2023-04-13 16:34] LABS: Basophils Percent Auto 0.4 % (0.2-1.2); Eosinophils Absolute Auto 0.3 K/mm3 (0-0.3); Eosinophils Percent Auto 4.3 % (0-4.4); Hematocrit 28.6 % (37.0-47.0); Hemoglobin 8.4 g/dL (12.0-15.0); Immature Granulocyte Absolute 0.05 K/mm3 (0.00-0.031); Immature Granulocyte Percent A 0.6 % (0-0.5); Lymphocytes Absolute Auto 0.59 K/mm3 (0.9-3.2); Lymphocytes Percent Auto 7.5 % (18.3-44.2); Mean Corpuscular HGB Conc 29.4 g/dl (32-36); Mean Corpuscular Hemoglobin 32.1 pg (26-34); Mean Corpuscular Volume 109.2 fl (80-100); Mean Platelet Volume 10.6 fl (7.4-10.4); Monocytes Absolute Auto 0.6 K/mm3 (0.1-0.6); Monocytes Percent Auto 7.5 % (2.6-8.5); Neutrophils Absolute Auto 6.3 K/mm3 (1.3-6.7); Neutrophils Percent Auto 79.7 % (45.5-73.1); Platelet Count Result 193 k/mm3 (150-375); Red Blood Count 2.62 M/mm3 (4.2-5.4); Red Cell Distribution Width 16.3 % (11.5-14.5); White Blood Count 7.9 K/mm3 (4.5-10.0)
[2023-04-13 16:43] LABS: Alanine Aminotransferase 20 U/L (6-35); Albumin Level 3.9 g/dL (3.5-5.1); Alkaline Phosphatase 67 U/L (38-126); Anion Gap 11 mmol/L (8-16); Aspartate Amino Transferase 25 U/L (14-36); Bilirubin,Total 0.5 mg/dL (0.2-1.3); Blood Urea Nitrogen 46 mg/dL (7-17); Calcium 8.9 mg/dL (8.4-10.2); Carbon Dioxide 27 mmol/L (22-30); Chloride 105 mmol/L (98-107); Creatine Kinase 100 U/L (30-135); Estimated CRCL calculation 46 ml/min; Estimated Glomerular Filt Rate 37; Glucose 259 mg/dL (65-110); Potassium 4.3 mmol/L (3.4-5.0); Sodium 143 mmol/L (137-145)
[2023-04-13 17:05] LABS: Hypochromasia 1+ (NORMAL); Platelet Estimate Adequate (Adequate); Schistocytes None Seen (NORMAL)
[2023-04-13 17:06] LABS: Anisocytosis 2+ (NORMAL); Macrocytosis 1+ (NORMAL)
--- NOTE | 2023-04-13 17:48 | ED.FALL ---
HPI - Fall General Chief Complaint: Fall Stated Complaint: fall hip injury Time Seen by Provider: 04/13/23 15:10 History of Present Illness HPI Narrative: Patient is a 73-year-old female who presents ER with right lower extremity pain. Patient was seen in the ER yesterday after a trip and fall. She had unremarkable imaging and was able to ambulate before being discharged. Patient reports since being home she has had increased pain. She specifically reports pain in her right foot and ankle. Those areas were not imaged. She has been unable to walk since being at home has been lying on the ground and has been soiling herself due to immobility. Patient has no new injury since a previous fall. She reports she has been in touch with her insurance they told her that she qualifies for prison/rehab. Related Data Home Medications Medication Instructions Recorded Confirmed diltiazem HCl 120 mg 120 mg PO DAILY 11/12/20 04/11/23 capsule,extended release 24 hr latanoprost 0.005 % eye drops 1 drp EACH EYE HS 11/12/20 04/11/23 cyanocobalamin (vitamin B-12) 1,000 mcg PO DAILY 05/16/21 04/11/23 1,000 mcg tablet fluticasone propionate 50 1 spray intranasal DAILY PRN 05/16/21 04/11/23 mcg/actuation nasal Congestion spray,suspension acetaminophen 500 mg tablet 500 mg PO QID 11/25/21 04/11/23 insulin aspart U-100 100 unit/mL See Rx Instructions subcut TID PRN 11/25/21 04/11/23 (3 mL) subcutaneous pen (Novolog Hyperglycemia FlexPen U-100 Insulin aspart) ascorbic acid (vitamin C) 1,000 mg 1,000 mg PO DAILY 10/13/22 04/11/23 tablet (Vitamin C) aspirin 81 mg tablet 81 mg PO DAILY 10/13/22 04/11/23 calcium carbonate 500 mg calcium 500 mg PO DAILY 10/13/22 04/11/23 (1,250 mg) tablet cholecalciferol (vitamin D3) 25 1,000 mcg PO DAILY 10/13/22 04/11/23 mcg (1,000 unit) tablet (Vitamin D3) insulin glargine U-300 conc 300 35 unit subcut DAILY 02/02/23 04/11/23 unit/mL (1.5 mL) subcutaneous pen (Toujeo SoloStar U-300 Insulin) ferrous sulfate 325 mg (65 mg 975 mg PO HS 02/07/23 04/11/23 iron) tablet metoprolol succinate 200 mg 200 mg PO DAILY 02/07/23 04/11/23 tablet,extended release 24 hr montelukast 10 mg tablet 10 mg PO DAILY 02/07/23 04/11/23 rivaroxaban 20 mg tablet (Xarelto) 20 mg PO DAILY 02/07/23 04/11/23 sacubitril 24 mg-valsartan 26 mg 1 tablet PO BID 02/07/23 04/11/23 tablet (Entresto) Allergies Allergy/AdvReac Type Severity Reaction Status Date / Time amoxicillin Allergy Mild Rash Verified 04/13/23 15:19 cat dander Allergy Mild Swelling Verified 04/13/23 15:19 of the Eye clavulanic acid Allergy Unknown Rash Verified 04/13/23 15:19 SUZE Inhibitors AdvReac Mild Cough Verified 04/13/23 15:19 adhesive AdvReac Mild BLISTERS Verified 04/13/23 15:19 surgical glue Allergy Severe Swelling Uncoded 04/13/23 15:19 other Allergy Intermediate Swelling Uncoded 04/13/23 15:19 Review of Systems Review of Systems: All systems reviewed & are unremarkable except as noted in HPI and below Constitutional: Constitutional: Denies chills, Denies fatigue and Denies fever(s) Cardiovascular: Cardiovascular: Reports no additional cardiovascular complaints Respiratory: Respiratory: Reports no additional respiratory complaints Gastrointestinal: Gastrointestinal: Reports no additional gastrointestinal complaints Musculoskeletal: Musculoskeletal: Reports arthralgias, Denies joint swelling and Reports muscle cramps Integumentary/Breasts: Skin/Breast: Denies erythema and Denies rash Comments: Scattered bruising PMFSH Past Medical History Medical History Accidental fall from bed Adenomatous colon polyp Aortic stenosis (~2017) status post aortic valve replacement(09/18) Arthritis (~2009) Asthma Calcification of left breast on mammography Chronic anticoagulation Chronic back pain CKD (chronic kidney disease) stage 3, GFR 30-59 ml/min CKD stage
--- NOTE | 2023-04-13 18:00 | PC.NURSE ---
1800-ATTEMPTED TO GET PATIENT UP TO AMBULATE. PATIENT BECAME ANGRY. YELLING AT THIS NURSE, I CAN'T WALK . I PEED MYSELF 12 TIMES AND RUINED BY SOFT . PATIENT STATES MY SISTER CAN CONFIRM I CAN'T WALK . PATIENT STATES THE PAIN IS TO SEVERE AND MAYBE ONCE THE PAIN IS BETTER I MIGHT BE ABLE TO WALK . PATIENT STATES THE LAST TIME THEY TRIED TO WALK ME THEY HAD A NURSE ON EACH SIDE OF ME HOLDING ME UP AND CALLED THAT WALKING . PATIENT STATES I CAN'T GO HOME LIKE THIS . UPDATE TO ERP.
[2023-04-13 18:47] VITALS: BP 146/88; PULSE 78; RESP 20; O2SAT 97
[2023-04-13 19:32] VITALS: BP 146/82; PULSE 87; RESP 19; O2SAT 95
--- NOTE | 2023-04-13 20:23 | ADMGEN ---
This patient, Laurel Rucker, was admitted to 2 Medical Room 244-. Patient/family oriented to hospital policies and general routines including ID bracelet, bed and alarms, visiting hours, pain management, procedures, bathroom and other care routines, personal items, smoking policy, room service/diet, and visiting hours. Information on how to activate the Rapid Response Team has been discussed. Patient/Family are encouraged to report perceived risks to care and to ask questions if they do not understand what they are told or what they should do.
[2023-04-13 20:36] VITALS: BP 128/67; PULSE 83; RESP 18; TEMP 36.7; O2SAT 100
[2023-04-13 20:49] VITALS: BMI 48.1
--- NOTE | 2023-04-13 22:35 | PM.IMHP ---
H&P: HPI History of Present Illness Date/Time: 04/13/23 22:35 Chief Complaint: Foot Pain, Reduction in Mobility Narrative: 73 y/o F presents here with R foot pain and reduced mobility with PMH of aortic stenosis (s/p aortic valve replacement), CKD, diastolic CHF, HTN, GAVE on EGD, GERD, HLD, gout, ANNIE with CPAP use, osteoporosis, peripheral neuropathy, diabetes, uterine cancer (s/p hysterectomy), and vitamin D deficicency. Patient presented to the ED yesterday after she had ground level fall. Reports that she tripped, likely due to her peripheral neuropathy. Trauma workup did not reveal any acute fractures or injuries. Patient did sustain hematoma to right eye extending into right forehead. Patient was ambulated with assistance x2 persons and discharged home. after arrival home patient was unable to ambulate due to right foot pain. Reports that she soiled herself multiple times due to inability to walk. While at home she attempted to contact her insurance company to evaluate if she would be good candidate for rehab or a senior living facility, They recommended she seek care in the ED again for admission and placement. Patient currently lives at home alone and does not receive help on a daily basis, has a crab meat processor once a month. Current complaint is tenderness throughout right ankle. Further imaging was obtained in the emergency department. No acute fractures or injury seen on imaging of right ankle. A/Ox4. Review of Systems Review of Systems: All systems reviewed & are unremarkable except as noted in HPI and below PMFSH Past Medical History Medical History Accidental fall from bed Adenomatous colon polyp Aortic stenosis (~2017) status post aortic valve replacement(09/18) Arthritis (~2009) Asthma Calcification of left breast on mammography Chronic anticoagulation Chronic back pain CKD (chronic kidney disease) stage 3, GFR 30-59 ml/min CKD stage 3 due to type 2 diabetes mellitus (~05/2019) With history of temporary dialysis during lengthy hospitalization Colon, diverticulosis Diastolic congestive heart failure (~2018) Most recent echo April 2020. Mild LVH. EF 60%. Mild mitral valve regurgitation Diverticulitis Essential (primary) hypertension External hemorrhoids without complication Frequent falls GAVE (gastric antral vascular ectasia) Noted on EGD 12/2020 GERD without esophagitis Glaucoma Gout Hyperlipidemia (~2009) Hypertensive heart and chronic kidney disease with heart failure and stage 1 through stage 4 chronic kidney disease, or unspecified chronic kidney disease Intramuscular hematoma Lumbar spondylosis Lung nodule seen on imaging study Major depressive disorder, recurrent, unspecified Moderate pulmonary hypertension Obstructive sleep apnea (~2014) Uses a CPAP at nighttime. Osteoporosis Peripheral neuropathy Positive colorectal cancer screening using Cologuard test Postmenopausal Pulmonary nodule Toe fracture lt great toe fx. Type 2 diabetes mellitus with diabetic nephropathy, with long-term current use of insulin Unspecified asthma with status asthmaticus Uterine cancer Status post hysterectomy. Vitamin D deficiency Surgical History Surgical History H/O colonoscopy with polypectomy History of heart surgery 08/2021, heart valve replacement History of total bilateral knee replacement History of tracheostomy After lengthy hospitalization in 2014. Hx of bilateral cataract extraction Status post appendectomy Status post cataract extraction of both eyes with insertion of intraocular lens Status post cholecystectomy Status post hysterectomy For uterine cancer. Family History Family History Mother Diabetes mellitus Sibling Family history of malignant neoplasm of thyroid Family history of atrial fibrillation [place]
[2023-04-14] VITALS (9 sets, daily range): BP systolic 122–142; BP diastolic 56–69; PULSE 79–125; RESP 14–18; TEMP 36.6–36.8; O2SAT 95–99; BMI 10.0
[2023-04-14 06:05] LABS: Hematocrit 27.7 % (37.0-47.0); Hemoglobin 7.9 g/dL (12.0-15.0); Mean Corpuscular HGB Conc 28.5 g/dl (32-36); Mean Corpuscular Volume 112.1 fl (80-100); Mean Platelet Volume 10.4 fl (7.4-10.4); Platelet Count Result 151 k/mm3 (150-375); Red Blood Count 2.47 M/mm3 (4.2-5.4); White Blood Count 6.6 K/mm3 (4.5-10.0)
[2023-04-14 06:30] LABS: Anion Gap 7 mmol/L (8-16); Blood Urea Nitrogen 39 mg/dL (7-17); Calcium 8.6 mg/dL (8.4-10.2); Carbon Dioxide 30 mmol/L (22-30); Chloride 108 mmol/L (98-107); Estimated CRCL calculation 53 ml/min; Estimated Glomerular Filt Rate 44; Glucose 238 mg/dL (65-110); Potassium 4.2 mmol/L (3.4-5.0); Sodium 145 mmol/L (137-145)
[2023-04-14] MEDS: FLUTICASONE PROP 110 MCG INHALER 12 GM (*SP) 1 PUFF INHALATION ×2 (07:05→20:11)
[2023-04-14 08:18] LABS: Hemoglobin A1C 6.9 % (<5.7)
[2023-04-14 08:44] LABS: Glucose Point of Care 212 mg/dl (65-105)
[2023-04-14] MEDS: INSULIN ASPART (*BKC) 100 UNITS/ML SUB-Q ×4 (09:03→20:30)
[2023-04-14] MEDS: ASPIRIN 81 MG ENTERIC TABLET PO (09:08)
[2023-04-14] MEDS: METOPROLOL SUCCINATE EXT REL 100 MG TABCR 200 MG PO (09:08)
[2023-04-14] MEDS: MONTELUKAST SODIUM 10 MG TABLET PO (09:08)
[2023-04-14] MEDS: LORATADINE 10 MG TABLET PO (09:09)
[2023-04-14] MEDS: CALCIUM CARBONATE (OSCAL) 500 MG TABLET PO (09:09)
[2023-04-14] MEDS: GABAPENTIN 300 MG CAPSULE 600 MG PO ×3 (09:09→16:19)
[2023-04-14] MEDS: POTASSIUM CHLORIDE 20 MEQ ER TABLET PO (09:09)
[2023-04-14] MEDS: FUROSEMIDE 40 MG TABLET PO ×2 (09:09→16:19)
[2023-04-14] MEDS: dilTIAZem HCL CD 120 MG CAP.24HR PO (09:10)
[2023-04-14] MEDS: ASCORBIC ACID 500 MG TABLET 1000 MG PO (09:10)
[2023-04-14] MEDS: hydrALAZINE HCL 25 MG TABLET PO ×3 (09:10→16:19)
[2023-04-14] MEDS: SACUBITRIL/VALSARTAN 24-26 MG TABLET 1 TAB PO ×2 (09:11→20:26)
[2023-04-14] MEDS: CYANOCOBALAMIN 1,000 MCG TABLET 1000 MCG PO (09:11)
[2023-04-14] MEDS: CHOLECALCIFEROL 1,000 UNITS TABLET 1000 UNITS PO (09:11)
[2023-04-14] MEDS: PANTOPRAZOLE 40 MG TABLET PO (09:11)
[2023-04-14] MEDS: TOLNAFTATE 1% POWDER 45 GM BTL 1 APPLIC TOPICAL ×2 (09:12→20:27)
[2023-04-14] MEDS: INSULIN GLARGINE (*BKC) 100 UNITS/ML 35 UNITS SUB-Q (09:16)
[2023-04-14] MEDS: TRIAMCINOLONE ACET 0.1% OINT 15 GM TUBE 1 APPLIC TOPICAL ×2 (09:44→16:20)
--- NOTE | 2023-04-14 11:22 | PC.NURSE ---
On 04/14/23, the student, [Bubba Baker], provided care and completed [facility] documentation on this patient. I have reviewed the student's documentation and agree with the findings.
[2023-04-14 11:43] LABS: Glucose Point of Care 238 mg/dl (65-105)
--- NOTE | 2023-04-14 14:42 | PM.IMPN ---
Progress Note: A&P Assessment and Plan (1) Multiple contusions: Code(s): T07.XXXA - Unspecified multiple injuries, initial encounter Status: Acute (2) CKD (chronic kidney disease) stage 3, GFR 30-59 ml/min: Code(s): N18.30 - Chronic kidney disease, stage 3 unspecified Status: Acute (3) Ambulatory dysfunction: Code(s): R26.2 - Difficulty in walking, not elsewhere classified Status: Acute Plan right foot pain, paula bandage wrap. consider MRI if no improvement in pain or mobility. ankle sprain pt consulted. placement pending Subjective Date/time seen: 04/14/23 14:42 Interval history: NAOE. patient complains of pain of right foot lateral aspect Review of Systems Review of Systems: All systems reviewed & are unremarkable except as noted in HPI and below Exam Const: General: comfortable Eyes: Pupils: Equal, round and reactive pupils present Resp: Effort & Inspection: normal respiratory effort Auscultation: clear to auscultation bilaterally Cardio: Rate: regular rate Rhythm: regular rhythm Heart sounds: no gallops, no murmurs and no rubs GI: GI Palp: Yes Soft to palpation Extrem: General: no edema Objective Data Vital Signs Vital Signs: Vital Signs - 24 hr 04/13/23 15:07 04/13/23 16:27 04/13/23 18:47 Temperature 97.3 F L Pulse Rate 72 68 78 Respiratory Rate 19 15 20 Blood Pressure 132/75 132/89 146/88 H Pulse Oximetry 94 93 97 Oxygen Delivery Nasal Cannula Oxygen Flow Rate 2 04/13/23 19:32 04/13/23 20:36 04/14/23 06:00 Temperature 98.0 F 98.1 F Pulse Rate 87 83 96 Respiratory Rate 19 18 18 Blood Pressure 146/82 H 128/67 142/68 H Pulse Oximetry 95 100 98 Oxygen Delivery Oxygen Flow Rate 04/14/23 07:05 04/14/23 07:05 04/14/23 09:08 Temperature Pulse Rate 79 79 80 Respiratory Rate 18 18 Blood Pressure Pulse Oximetry 98 Oxygen Delivery Nasal Cannula Oxygen Flow Rate 2 04/14/23 09:30 04/14/23 10:47 04/14/23 11:08 Temperature Pulse Rate Respiratory Rate 18 18 Blood Pressure Pulse Oximetry 98 98 Oxygen Delivery Nasal Cannula Nasal Cannula Room Air Oxygen Flow Rate 2 2 04/14/23 14:00 Temperature 98.2 F Pulse Rate 98 Respiratory Rate 14 Blood Pressure 122/56 L Pulse Oximetry 95 Oxygen Delivery Oxygen Flow Rate Intake/Output Intake/Output: Intake & Output 04/11/23 04/12/23 04/13/23 04/14/23 23:59 23:59 23:59 23:59 Intake Total 840 Balance 840 Meds/Results Medications: Active Medications Generic Name Dose Route Start Last Admin Trade Name Freq PRN Reason Stop Dose Admin Acetaminophen 650 mg 04/13/23 18:17 Acetaminophen 325 Mg Tablet PO Q4H PRN Mild Pain (1-3) or Fever Hydrocodone Bitart/Acetaminophen 1 tab 04/13/23 18:17 Hydrocodone/Acetaminophen (*Crx) 5-325 Mg Tablet PO Q4H PRN Pain Rated 4-6 Albuterol 1 - 2 puff 04/14/23 03:38 Albuterol Sulfate (*Sp) Aerosol 1 Puff INHALATION Q4-6H PRN shortness of breath or wheezing Ascorbic Acid 1,000 mg 04/14/23 09:00 04/14/23 09:10 Ascorbic Acid 500 Mg Tablet PO 1,000 mg DAILY KARAN Administration Aspirin 81 mg 04/14/23 09:00 04/14/23 09:08 Aspirin 81 Mg Enteric Tablet PO 81 mg QAM KARAN Administration Calcium Carbonate 500 mg 04/14/23 09:00 04/14/23 09:09 Calcium Carbonate (Oscal) 500 Mg Tablet PO 500 mg DAILY KARAN Administration Cyanocobalamin 1,000 mcg 04/14/23 09:00 04/14/23 09:11 Cyanocobalamin 1,000 Mcg Tablet PO 1,000 mcg DAILY KARAN Administration Dextrose 12.5 gm 04/14/23 03:42 Dextrose 50% 25 Gm/50 Ml Syringe IV PUSH PRN PRN Hypoglycemia Protocol Diltiazem HCl 120 mg 04/14/23 09:00 04/14/23 09:10 Diltiazem Hcl Cd 120 Mg Cap.24hr PO 120 mg DAILY KARAN Administration Ferrous Sulfate 325 mg 04/14/23 21:00 Ferrous Sulfate [address] BY MOUTH HS KARAN Fluticasone Propionate 1 puff
[2023-04-14] MEDS: HYDROcodone/acetaminophen (*CRX) 5-325 MG TABLET 1 TAB PO (15:51)
[2023-04-14] MEDS: RIVAROXABAN 20 MG TABLET PO (16:19)
[2023-04-14 16:48] LABS: Glucose Point of Care 201 mg/dl (65-105)
[2023-04-14] MEDS: ROSUVASTATIN 5 MG TABLET PO (20:26)
[2023-04-14] MEDS: FERROUS SULFATE 325 MG TABLET DR BY MOUTH (20:26)
[2023-04-14] MEDS: LATANOPROST 0.005% OP SOLN 2.5 ML BTL 1 DROP EACH EYE (20:27)
[2023-04-14 20:33] LABS: Glucose Point of Care 251 mg/dl (65-105)
[2023-04-14] MEDS: MORPHINE SULFATE (*CRX) 4 MG/ML INJ 2 MG IV PUSH (23:25)
[2023-04-15] VITALS (27 sets, daily range): BP systolic 91–133; BP diastolic 47–83; PULSE 68–115; RESP 15–20; TEMP 35.8–36.7; O2SAT 91–100
[2023-04-15] MEDS: HYDROcodone/acetaminophen (*CRX) 5-325 MG TABLET 1 TAB PO (00:34)
[2023-04-15 06:13] LABS: Hematocrit 26.1 % (37.0-47.0); Hemoglobin 7.4 g/dL (12.0-15.0); Mean Corpuscular HGB Conc 28.4 g/dl (32-36); Mean Platelet Volume 10.6 fl (7.4-10.4); Platelet Count Result 173 k/mm3 (150-375); Red Blood Count 2.31 M/mm3 (4.2-5.4); Red Cell Distribution Width 15.9 % (11.5-14.5); White Blood Count 7.6 K/mm3 (4.5-10.0)
[2023-04-15 06:22] LABS: Anion Gap 10 mmol/L (8-16); Blood Urea Nitrogen 42 mg/dL (7-17); Calcium 8.4 mg/dL (8.4-10.2); Carbon Dioxide 25 mmol/L (22-30); Chloride 105 mmol/L (98-107); Estimated CRCL calculation 36 ml/min; Estimated Glomerular Filt Rate 27; Glucose 316 mg/dL (65-110); Potassium 5.2 mmol/L (3.4-5.0); Sodium 140 mmol/L (137-145)
[2023-04-15 09:00] LABS: Glucose Point of Care 313 mg/dl (65-105)
[2023-04-15 10:00] LABS: Alveolar/Arterial O2 Gradient 44.5 mmHg; Base Excess ABG 1.1 mEq/l (+/-2.0); Fractional Inspired Oxygen 28 %; HCO3 ABG 28.2 mEq/l (22.0-26.0); Oxygen Saturation ABG 95.1 % (95.0-100.0); Oxyhemoglobin 92.1 % THb (90.0-100.0); PCO2 ABG 59.6 mmHg (35.0-45.0); PO2 ABG 84.8 mmHg (80.0-100.0); PO2 FiO2 Ratio Arterial Blood 3.03 %; Total Hemoglobin 8.4 g/dL (12.0-18.0)
[2023-04-15 10:04] LABS: Device NASAL CANNULA; Site Drawn LEFT BRACHIAL; pH ABG 7.293 (7.350-7.450)
--- NOTE | 2023-04-15 10:35 | PM.IMPN ---
Progress Note: A&P Assessment and Plan (1) CKD (chronic kidney disease) stage 3, GFR 30-59 ml/min: Code(s): N18.30 - Chronic kidney disease, stage 3 unspecified Status: Acute (2) Obstructive sleep apnea: Onset Date: ~2014 Code(s): G47.33 - Obstructive sleep apnea (adult) (pediatric) Status: Chronic (3) Altered mental status: Code(s): R41.82 - Altered mental status, unspecified Status: Acute Plan 73 y/o F presents here with R foot pain and reduced mobility with PMH of aortic stenosis (s/p aortic valve replacement),? CKD, diastolic CHF, HTN, GAVE on EGD, GERD, HLD, gout,? ANNIE non compliant with CPAP, osteoporosis, peripheral neuropathy, diabetes, uterine cancer (s/p hysterectomy), and vitamin D deficiency. 1) acute encephalopathy - admitted A&Ox3, on 04/15 in the AM developed AMS. likely 2/2 to co[address] brain w/o con negative. she is non compliant with CPAP. - bipap, duoneb x1, repeat the BMP and monitor - if she does not improve with lowering of co2 then panworkup will be done. 2) acute hypoxic hypercapnic respiratory failure - ANNIE OHS syndrome. PFT 01/13/23 did not demonstrate obstruction but severe restrictive abnormality along with decreased diffusing capacity. - per pulm office reports she was supposed to be using o2 at home intermittently. this is likely not far off from her baseline. although obviously we should treat her co2 narcosis 3) hypekalemia - mild, give lasix x1, recheck bmp 4) CKD - ctm 5) anemia - monitor HB 6) DM - accuchecks and sliding scale 7) diastolic CHF - compensated, monitor closely given respiratory failure FEN: npo on bipap, d5ns maintenance GI prophylaxis: protonix IV DVT prophylaxis: xarelto Lines: dayna White Code Status: Full Code Dispo: guarded great than 100 minutes spent on rapid response, workup, chart review, communication with nurses Subjective Date/time seen: 04/15/23 10:35 Interval history: pt altered. follows commands intermittently Review of Systems Review of Systems: All systems reviewed & are unremarkable except as noted in HPI and below Exam Const: General: comfortable Other: obese, A&Ox1, somnolent, does wake up to follow commands sometimes Eyes: Pupils: Equal, round and reactive pupils present Neck: Neck: supple Resp: Effort & Inspection: normal respiratory effort Auscultation: clear to auscultation bilaterally Cardio: Rate: regular rate Rhythm: regular rhythm Heart sounds: no gallops, no murmurs and no rubs GI: GI Palp: Yes Soft to palpation Extrem: General: no edema Objective Data Vital Signs Vital Signs: Vital Signs - 24 hr 04/14/23 10:47 04/14/23 11:08 04/14/23 14:00 Temperature 98.2 F Pulse Rate 98 Respiratory Rate 18 14 Blood Pressure 122/56 L Pulse Oximetry 98 95 Oxygen Delivery Nasal Cannula Room Air Oxygen Flow Rate 2 04/14/23 20:37 04/14/23 20:13 04/14/23 20:00 Temperature 97.8 F Pulse Rate 125 H 125 H Respiratory Rate 18 18 Blood Pressure 139/69 Pulse Oximetry 99 98 99 Oxygen Delivery Nasal Cannula Nasal Cannula Oxygen Flow Rate 2 2 04/15/23 05:19 04/15/23 09:51 Temperature 98.0 F 97.6 F Pulse Rate 115 H 87 Respiratory Rate 20 20 Blood Pressure 102/60 118/47 L Pulse Oximetry 95 93 Oxygen Delivery Oxygen Flow Rate Intake/Output Intake/Output: Intake & Output 04/12/23 04/13/23 04/14/23 04/15/23 23:59 23:59 23:59 23:59 Intake Total 1330 Output Total 350 400 Balance 980 -400 Meds/Results Medications: Active Medications Generic Name Dose Route Start Last Admin Trade Name Freq PRN Reason Stop Dose Admin Acetaminophen 650 mg 04/13/23 18:17 Acetaminophen 325 Mg Tablet PO Q4H PRN Mild Pain (1-3) or Fever Hydrocodone Bitart/Acetaminophen 1 tab 04/13/23 18:17 04/15/23 00:34 Hydrocodone/Acetaminophen (*Crx) 5-325 Mg Tablet PO 1 tab Q4H PRN Administration Pain Rated
[2023-04-15] MEDS: IPRATROPIUM BR 0.02% INH SOLN 0.5 MG/2.5 ML VIAL INHALATION ×3 (11:09→20:07)
[2023-04-15] MEDS: ALBUTEROL SULFATE NEB 2.5 MG/3 ML INH INHALATION ×3 (11:09→20:07)
[2023-04-15] MEDS: TRIAMCINOLONE ACET 0.1% OINT 15 GM TUBE 1 APPLIC TOPICAL ×2 (11:15→16:16)
[2023-04-15] MEDS: TOLNAFTATE 1% POWDER 45 GM BTL 1 APPLIC TOPICAL ×2 (11:15→21:14)
[2023-04-15 11:20] LABS: Influenza A QL RT-PCR Negative (Negative); Influenza B QL RT-PCR Negative (Negative); RSV RNA, RT-PCR Negative (Negative); SARS-CoV-2 RNA PCR Negative (Negative)
[2023-04-15 11:48] LABS: Glucose Point of Care 246 mg/dl (65-105)
[2023-04-15] MEDS: SODIUM CHLORIDE 0.9% IV 500 ML 999 ML IV CONT (11:48)
--- NOTE | 2023-04-15 12:04 | PC.NURSE ---
This patient, Laurel Rucker, was received from [facility] on 04/15/23 at 0929. Patient/family oriented to unit policies and routines
[2023-04-15] MEDS: FUROSEMIDE INJ 40 MG/4 ML VIAL 20 MG IV PUSH (12:31)
[2023-04-15] MEDS: SODIUM CHLORIDE 0.9% IV 1,000 ML 83 ML IV CONT (12:31)
--- NOTE | 2023-04-15 13:14 | PCPTNOTE ---
The patient treatment was not able to be completed on 04/15/2023 due to change in medical status, patient transferred from [address] [place] [address] to IMU. PT will follow up.
[2023-04-15 13:34] LABS: Anion Gap 10 mmol/L (8-16); Blood Urea Nitrogen 49 mg/dL (7-17); Calcium 8.8 mg/dL (8.4-10.2); Carbon Dioxide 24 mmol/L (22-30); Chloride 106 mmol/L (98-107); Estimated CRCL calculation 32 ml/min; Estimated Glomerular Filt Rate 24; Glucose 276 mg/dL (65-110); Potassium 5.3 mmol/L (3.4-5.0); Sodium 140 mmol/L (137-145)
[2023-04-15 13:37] LABS: Alveolar/Arterial O2 Gradient 72.1 mmHg; Base Excess ABG 1.8 mEq/l (+/-2.0); Fractional Inspired Oxygen 30 %; HCO3 ABG 28.7 mEq/l (22.0-26.0); Oxygen Content ABG 11.4 %vol (16.0-22.0); Oxygen Saturation ABG 92.8 % (95.0-100.0); Oxyhemoglobin 91.5 % THb (90.0-100.0); PCO2 ABG 58.9 mmHg (35.0-45.0); PO2 ABG 72.6 mmHg (80.0-100.0); PO2 FiO2 Ratio Arterial Blood 2.42 %; Total Hemoglobin 8.8 g/dL (12.0-18.0); pH ABG 7.306 (7.350-7.450)
[2023-04-15 13:38] LABS: Device NON-INVASIVE VENT; Site Drawn LEFT BRACHIAL
[2023-04-15 13:39] LABS: Non-Invasive Expiratory Pressure 7 CMH2O; Non-Invasive Inspiratory Pressure 12 CMH2O; Non-Invasive Vent Rate 12 /MIN
[2023-04-15 13:59] LABS: Appearance Urine Cloudy (Clear); Bacteria Urine None Seen /hpf; Bilirubin Urine Negative (Negative); Blood Urine Trace (Negative); Color Urine Yellow (Yellow); Glucose Urine UA Negative (Negative); Ketones Urine Negative (Negative); Leukocyte Esterase Ur Negative LEU/UL (Negative); Need Manual Microscopic Reviewed; Nitrate Urine Negative (Negative); Protein Urine 1+ mg/dL (Negative); Specific Grav Ur 1.015 (1.001-1.035); Squamous Epithelial Cell Urine Few /hpf (Few); WBC Urine 0-5 /hpf
--- NOTE | 2023-04-15 14:12 | ECG_ITS ---
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
[2023-04-15 14:19] LABS: Add Urine Microscopic? YES
[2023-04-15 14:51] LABS: Lactic Acid Reflex 1.4 mmol/L (0.7-2.0)
[2023-04-15 14:52] LABS: Acetaminophen < 10 ug/mL (10-30); Ammonia < 9 umol/L (9-30); Salicylate < 1.0 mg/dL (2-20)
[2023-04-15 15:11] LABS: NT Pro B Type Natriuretic Pept 16400 pg/mL (19.9-100); Troponin I 0.077 ng/mL (0.000-0.034)
[2023-04-15 15:30] LABS: Amphetamine Screen Urine Negative (Negative); Barbiturate Screen Urine Negative (Negative); Benzodiazepines Screen Urine Negative (Negative); Cannabinoid Screen Urine Negative (Negative); Cocaine Screen Urine Negative (Negative); Methadone Screen Urine Negative (Negative); Opiate Screen Urine Positive (Negative); Phencyclidine Screen Urine Negative (Negative)
[2023-04-15] MEDS: FUROSEMIDE INJ 40 MG/4 ML VIAL IV PUSH ×2 (16:16→17:17)
[2023-04-15 17:26] LABS: Glucose Point of Care 218 mg/dl (65-105)
[2023-04-15] MEDS: INSULIN ASPART (*BKC) 100 UNITS/ML SUB-Q (17:27)
[2023-04-15 19:52] LABS: Troponin I 0.076 ng/mL (0.000-0.034)
[2023-04-15 20:11] LABS: Glucose Point of Care 210 mg/dl (65-105)
[2023-04-15 20:40] LABS: Glucose Point of Care 185 mg/dl (65-105)
[2023-04-15] MEDS: LATANOPROST 0.005% OP SOLN 2.5 ML BTL 1 DROP EACH EYE (20:56)
[2023-04-16] VITALS (29 sets, daily range): BP systolic 100–124; BP diastolic 54–68; PULSE 69–122; RESP 15–22; TEMP 35.8–37.2; O2SAT 90–100
[2023-04-16 00:23] LABS: Glucose Point of Care 184 mg/dl (65-105)
[2023-04-16 01:19] LABS: Anion Gap 7 mmol/L (8-16); Blood Urea Nitrogen 53 mg/dL (7-17); Calcium 8.4 mg/dL (8.4-10.2); Carbon Dioxide 29 mmol/L (22-30); Chloride 105 mmol/L (98-107); Estimated CRCL calculation 26 ml/min; Estimated Glomerular Filt Rate 19; Glucose 203 mg/dL (65-110); Potassium 4.6 mmol/L (3.4-5.0); Sodium 141 mmol/L (137-145)
[2023-04-16 01:49] LABS: Troponin I 0.061 ng/mL (0.000-0.034)
[2023-04-16] MEDS: IPRATROPIUM BR 0.02% INH SOLN 0.5 MG/2.5 ML VIAL INHALATION ×4 (02:07→20:28)
[2023-04-16] MEDS: ALBUTEROL SULFATE NEB 2.5 MG/3 ML INH INHALATION ×4 (02:08→20:28)
[2023-04-16] MEDS: HYDROcodone/acetaminophen (*CRX) 5-325 MG TABLET 1 TAB PO (03:46)
[2023-04-16 04:30] LABS: Alveolar/Arterial O2 Gradient 72.5 mmHg; Base Excess ABG 1.2 mEq/l (+/-2.0); Fractional Inspired Oxygen 30 %; HCO3 ABG 27.7 mEq/l (22.0-26.0); Oxygen Content ABG 13.1 %vol (16.0-22.0); Oxygen Saturation ABG 94.6 % (95.0-100.0); Oxyhemoglobin 93.5 % THb (90.0-100.0); PCO2 ABG 53.7 mmHg (35.0-45.0); PO2 ABG 78.3 mmHg (80.0-100.0); PO2 FiO2 Ratio Arterial Blood 2.61 %; Total Hemoglobin 9.9 g/dL (12.0-18.0)
[2023-04-16 04:32] LABS: Device NON-INVASIVE VENT; Modified Allen's Test Pass; Site Drawn RIGHT RADIAL
[2023-04-16 04:33] LABS: Non-Invasive Expiratory Pressure 7 CMH2O; Non-Invasive Inspiratory Pressure 12 CMH2O; Non-Invasive Vent Rate 12 /MIN
[2023-04-16 07:35] LABS: Basophils Percent Auto 0.5 % (0.2-1.2); Eosinophils Absolute Auto 0.2 K/mm3 (0-0.3); Eosinophils Percent Auto 2.9 % (0-4.4); Hematocrit 25.1 % (37.0-47.0); Hemoglobin 7.1 g/dL (12.0-15.0); Immature Granulocyte Absolute 0.05 K/mm3 (0.00-0.031); Immature Granulocyte Percent A 0.8 % (0-0.5); Lymphocytes Absolute Auto 0.62 K/mm3 (0.9-3.2); Lymphocytes Percent Auto 9.4 % (18.3-44.2); Mean Corpuscular HGB Conc 28.3 g/dl (32-36); Mean Corpuscular Hemoglobin 31.8 pg (26-34); Mean Corpuscular Volume 112.6 fl (80-100); Mean Platelet Volume 10.2 fl (7.4-10.4); Monocytes Absolute Auto 0.6 K/mm3 (0.1-0.6); Monocytes Percent Auto 8.4 % (2.6-8.5); Neutrophils Absolute Auto 5.2 K/mm3 (1.3-6.7); Platelet Count Result 135 k/mm3 (150-375); Red Blood Count 2.23 M/mm3 (4.2-5.4); Red Cell Distribution Width 15.8 % (11.5-14.5); White Blood Count 6.6 K/mm3 (4.5-10.0)
[2023-04-16 07:47] LABS: Anion Gap 7 mmol/L (8-16); Blood Urea Nitrogen 56 mg/dL (7-17); Calcium 8.6 mg/dL (8.4-10.2); Carbon Dioxide 30 mmol/L (22-30); Chloride 104 mmol/L (98-107); Estimated CRCL calculation 26 ml/min; Estimated Glomerular Filt Rate 19; Glucose 203 mg/dL (65-110); Magnesium 2.2 mg/dL (1.6-2.3); Potassium 4.6 mmol/L (3.4-5.0); Sodium 141 mmol/L (137-145)
[2023-04-16] MEDS: FLUTICASONE PROP 110 MCG INHALER 12 GM (*SP) 1 PUFF INHALATION ×2 (08:12→20:28)
[2023-04-16 08:15] LABS: Glucose Point of Care 187 mg/dl (65-105)
[2023-04-16] MEDS: FUROSEMIDE INJ 40 MG/4 ML VIAL IV PUSH ×3 (09:50→16:36)
[2023-04-16] MEDS: INSULIN GLARGINE (*BKC) 100 UNITS/ML 35 UNITS SUB-Q (09:50)
[2023-04-16] MEDS: TRIAMCINOLONE ACET 0.1% OINT 15 GM TUBE 1 APPLIC TOPICAL ×2 (09:51→16:37)
[2023-04-16] MEDS: ASPIRIN 81 MG ENTERIC TABLET PO (09:51)
[2023-04-16] MEDS: TOLNAFTATE 1% POWDER 45 GM BTL 1 APPLIC TOPICAL ×2 (09:51→20:10)
[2023-04-16 09:58] LABS: Anisocytosis 2+ (NORMAL); Hypochromasia 3+ (NORMAL); Schistocytes None Seen (NORMAL)
--- NOTE | 2023-04-16 11:52 | PC.NURSE ---
Held pre-lunch blood sugar due to consumption of late breakfast at 1030am. Will check next blood sugar at 1600.
--- NOTE | 2023-04-16 12:03 | PM.IMPN ---
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 1) acute encephalopathy - admitted A&Ox3, on 04/15 in the AM developed AMS. likely 2/2 to co[address] brain w/o con negative. she is non compliant with CPAP. - improved clinically, PCO2 only coming down from 59.6 to 53.7. she may be a chronic retainer, and in this light: - BIPAP nightly, dupierre scheduled for now. treat CHF 2) acute hypoxic hypercapnic respiratory failure 2/2 ANNIE/OHS/CHF - ANNIE OHS syndrome. PFT 01/13/23 did not demonstrate obstruction but severe restrictive abnormality along with decreased diffusing capacity. per pulm office reports she was supposed to be using o2 at home intermittently. she is now on 4L NC but we can likely wean her as she just came off BIPAP - acute decompensated HFrEF: lasix 40mg IV BID but she did not have much UOP. BNP highly elevated. give another dose of lasix 40mg IV. daily weights with fluid restriction. monitor UOP 3) hypekalemia - mild, resolved after lasix administration 4) ABDIEL on CKD - baseline CKD stage 3 w/ sCR 1.3-1.7. on 04/16 she has sCR 2.5 but the delta is decreasing, suspect we need better diuresis 5) severe macrocytic anemia with thrombocytopenia - review notes from september 2022. she has elevated retic count. consult oncology for further workup - so far now evidence of bleeding aside from her contusions. she had EGD and and colonoscopy in september 2022 and required transfusion. mild gastritis, diverticulosis and hemorrhoids were observed. considering her kidney injury we are going to have to hold off on protonix for now 6) fall at home with contusions of face and right foot pain/sprain - monitor contusions, no evidence of orbital fracture - PT OT and placement. if cannot bear weight on R foot by tuesday will obtain MRI 7) hx of HTN - hold meds considering all of the above. restart as appropriate 8) a fib on coumadin - holding AC in light of anemia - rate controlled. restart BP meds as tolerated 9) DM - accuchecks and sliding scale. FEN: cardiac diabetic diet with fluid restriction. saline lock IV GI prophylaxis: hold protonix for ABDIEL DVT prophylaxis: hold AC for anemia Lines: pIV, mcintosh Code Status:? Full Code Dispo:? guarded More than 35 minutes spent on chart review, patient interaction and assessment and plan. Subjective Date/time seen: 04/16/23 12:03 Interval history: patient fared well overnight, her mental status coming back to norm. she has no complaints and is ready to eat, although she has not put pressure on her right foot yet. Review of Systems Review of Systems: All systems reviewed & are unremarkable except as noted in HPI and below Exam Const: General: comfortable and no acute distress Other: A&ox3, obese Eyes: Pupils: Equal, round and reactive pupils present Neck: Neck: supple Resp: Effort & Inspection: normal respiratory effort Auscultati
--- NOTE | 2023-04-16 12:41 | PCPTNOTE ---
Spoke with hospitalist, pt is okay to continue with current therapy POC.
[2023-04-16] MEDS: GABAPENTIN 300 MG CAPSULE 600 MG PO ×2 (12:56→16:37)
[2023-04-16 13:46] LABS: Iron 15 ug/dL (37-170)
[2023-04-16 13:47] LABS: Lactate Dehydrogenase 227 U/L (120-246)
[2023-04-16 13:56] LABS: Percent Iron Saturation 5 % (20-50)
[2023-04-16 14:29] LABS: Hematocrit 27.7 % (37.0-47.0); Hemoglobin 7.6 g/dL (12.0-15.0); Mean Corpuscular HGB Conc 27.4 g/dl (32-36); Mean Corpuscular Hemoglobin 32.2 pg (26-34); Mean Corpuscular Volume 117.4 fl (80-100); Mean Platelet Volume 10.9 fl (7.4-10.4); Platelet Count Result 139 k/mm3 (150-375); Red Blood Count 2.36 M/mm3 (4.2-5.4); Red Cell Distribution Width 15.5 % (11.5-14.5); White Blood Count 6.6 K/mm3 (4.5-10.0)
[2023-04-16 16:05] LABS: Glucose Point of Care 255 mg/dl (65-105)
[2023-04-16] MEDS: INSULIN ASPART (*BKC) 100 UNITS/ML SUB-Q ×2 (16:35→20:10)
[2023-04-16 19:59] LABS: Glucose Point of Care 214 mg/dl (65-105)
[2023-04-16] MEDS: FERROUS SULFATE 325 MG TABLET DR BY MOUTH (20:09)
[2023-04-16] MEDS: ROSUVASTATIN 5 MG TABLET PO (20:09)
[2023-04-16] MEDS: LATANOPROST 0.005% OP SOLN 2.5 ML BTL 1 DROP EACH EYE (22:00)
[2023-04-17] VITALS (29 sets, daily range): BP systolic 99–137; BP diastolic 55–98; PULSE 94–141; RESP 12–22; TEMP 36.3–37; O2SAT 92–100
[2023-04-17] MEDS: IPRATROPIUM BR 0.02% INH SOLN 0.5 MG/2.5 ML VIAL INHALATION ×4 (01:15→20:20)
[2023-04-17] MEDS: ALBUTEROL SULFATE NEB 2.5 MG/3 ML INH INHALATION ×4 (01:15→20:21)
[2023-04-17 05:25] LABS: Alveolar/Arterial O2 Gradient 81.7 mmHg; Fractional Inspired Oxygen 35 %; HCO3 ABG 27.5 mEq/l (22.0-26.0); Oxygen Content ABG 11.5 %vol (16.0-22.0); Oxygen Saturation ABG 97.3 % (95.0-100.0); Oxyhemoglobin 96.6 % THb (90.0-100.0); PCO2 ABG 54.7 mmHg (35.0-45.0); PO2 ABG 104.3 mmHg (80.0-100.0); PO2 FiO2 Ratio Arterial Blood 2.98 %; Total Hemoglobin 8.3 g/dL (12.0-18.0)
[2023-04-17 05:26] LABS: Modified Allen's Test Pass; Site Drawn RIGHT RADIAL
[2023-04-17 05:43] LABS: Basophils Percent Auto 0.4 % (0.2-1.2); Eosinophils Absolute Auto 0.3 K/mm3 (0-0.3); Hematocrit 24.5 % (37.0-47.0); Hemoglobin 7.1 g/dL (12.0-15.0); Immature Granulocyte Absolute 0.04 K/mm3 (0.00-0.031); Immature Granulocyte Percent A 0.6 % (0-0.5); Lymphocytes Absolute Auto 0.67 K/mm3 (0.9-3.2); Lymphocytes Percent Auto 9.7 % (18.3-44.2); Mean Corpuscular Hemoglobin 32.6 pg (26-34); Mean Corpuscular Volume 112.4 fl (80-100); Mean Platelet Volume 11.2 fl (7.4-10.4); Monocytes Absolute Auto 0.7 K/mm3 (0.1-0.6); Neutrophils Absolute Auto 5.2 K/mm3 (1.3-6.7); Neutrophils Percent Auto 75.3 % (45.5-73.1); Platelet Count Result 152 k/mm3 (150-375); Red Blood Count 2.18 M/mm3 (4.2-5.4); Red Cell Distribution Width 15.1 % (11.5-14.5); White Blood Count 6.9 K/mm3 (4.5-10.0)
[2023-04-17 06:00] LABS: Anion Gap 10 mmol/L (8-16); Blood Urea Nitrogen 68 mg/dL (7-17); Calcium 8.3 mg/dL (8.4-10.2); Carbon Dioxide 27 mmol/L (22-30); Chloride 104 mmol/L (98-107); Estimated CRCL calculation 25 ml/min; Estimated Glomerular Filt Rate 18; Glucose 200 mg/dL (65-110); Magnesium 2.3 mg/dL (1.6-2.3); Potassium 4.4 mmol/L (3.4-5.0); Sodium 141 mmol/L (137-145)
[2023-04-17 06:03] LABS: Device NON-INVASIVE VENT
[2023-04-17 06:06] LABS: pH ABG 7.319 (7.350-7.450)
[2023-04-17 06:13] LABS: Non-Invasive Inspiratory Pressure 12 CMH2O; Non-Invasive Vent Rate 12 /MIN
[2023-04-17 06:14] LABS: Non-Invasive Expiratory Pressure 7 CMH2O
[2023-04-17 07:10] LABS: Hypochromasia 1+ (NORMAL); Platelet Estimate Adequate (Adequate)
[2023-04-17 07:11] LABS: Anisocytosis 1+ (NORMAL); Schistocytes None Seen (NORMAL)
[2023-04-17 08:08] LABS: Glucose Point of Care 188 mg/dl (65-105)
[2023-04-17] MEDS: GABAPENTIN 300 MG CAPSULE 600 MG PO ×3 (08:34→16:34)
[2023-04-17] MEDS: FUROSEMIDE INJ 40 MG/4 ML VIAL IV PUSH (08:34)
[2023-04-17] MEDS: CYANOCOBALAMIN 1,000 MCG TABLET 1000 MCG PO (08:34)
[2023-04-17] MEDS: MONTELUKAST SODIUM 10 MG TABLET PO (08:34)
[2023-04-17] MEDS: ASPIRIN 81 MG ENTERIC TABLET PO (08:34)
[2023-04-17] MEDS: LORATADINE 10 MG TABLET PO (08:34)
[2023-04-17] MEDS: TRIAMCINOLONE ACET 0.1% OINT 15 GM TUBE 1 APPLIC TOPICAL ×2 (08:35→16:35)
[2023-04-17] MEDS: INSULIN GLARGINE (*BKC) 100 UNITS/ML 35 UNITS SUB-Q (08:35)
[2023-04-17] MEDS: TOLNAFTATE 1% POWDER 45 GM BTL 1 APPLIC TOPICAL ×2 (08:36→20:52)
[2023-04-17] MEDS: ACETAMINOPHEN 325 MG TABLET 650 MG PO (08:50)
[2023-04-17] MEDS: INSULIN ASPART (*BKC) 100 UNITS/ML SUB-Q ×2 (11:40→20:52)
[2023-04-17 11:42] LABS: Glucose Point of Care 221 mg/dl (65-105)
--- NOTE | 2023-04-17 12:25 | PM.IMPN ---
Progress Note: A&P Assessment and Plan (1) Altered mental status: Code(s): R41.82 - Altered mental status, unspecified Status: Acute (2) Multiple contusions: Code(s): T07.XXXA - Unspecified multiple injuries, initial encounter Status: Acute (3) CKD (chronic kidney disease) stage 3, GFR 30-59 ml/min: Code(s): N18.30 - Chronic kidney disease, stage 3 unspecified Status: Acute (4) Type 2 diabetes mellitus with diabetic nephropathy, with long-term current use of insulin: Code(s): E11.21 - Type 2 diabetes mellitus with diabetic nephropathy; Z79.4 - residential (current) use of insulin Status: Chronic (5) Obstructive sleep apnea: Onset Date: ~2014 Code(s): G47.33 - Obstructive sleep apnea (adult) (pediatric) Status: Chronic Plan 73 y/o F presents here with R foot pain and reduced mobility with PMH of aortic stenosis s/p TAVR,?a fib on coumadin, external hemorrhoids, CKD stage 3, HFpEF, HTN, GAVE on EGD/gastritis, GERD, HLD, gout, ANNIE non compliant with CPAP, osteoporosis, peripheral neuropathy, diabetes, uterine cancer (s/p hysterectomy), and vitamin D deficiency. 1) acute encephalopathy - admitted A&Ox3, on 04/15 in the AM developed AMS. 2/2 co2 narcosis as it improved after BIPAP use. repeat CT brain w/o con negative. she is non compliant with CPAP. counseled. BIPAP at night. cont duonebs for now as well, slight wheeze. continue to monitor. d/c scheduled ABGs. order as needed. 2) acute hypoxic hypercapnic respiratory failure 2/2 ANNIE/OHS/CHF - ANNIE OHS syndrome. PFT 01/13/23 did not demonstrate obstruction but severe restrictive abnormality along with decreased diffusing capacity. per pulm office reports she was supposed to be using o2 at home intermittently. 4L now weaned down to 2L. cont to wean as tolerated. 3) HFpEF - compensated, in fact we may have diuresed too aggresively so on 04/17 d/c lasix. - pending echo. mention of tamponade on chest imaging. last echo 71% EF with indeterminate diastolic function in 10/19 - cont daily weights with mcintosh for UOP. fluid restriction held temporarily 4) hyperkalemia - mild, resolved after lasix administration 5) ABDIEL on CKD stage 3 - baseline CKD stage 3 w/ sCR 1.3-1.7. worsening, probably due to overdiuresis and hypotensive episode on 04/15. start gentle IVF at 83cc/hr of NS - consult nephrology, appreciate their assistance 6) severe macrocytic anemia -?review notes from september 2022. she has elevated retic count. consult oncology for further workup, pending workup - so far now evidence of bleeding aside from her contusions. she had EGD and and colonoscopy in september 2022 and required transfusion. mild gastritis, diverticulosis and hemorrhoids were observed. considering her kidney injury we are going to have to hold off on protonix for now - she is on aspirin and lovenox, holding. HB 7.1 on 04/07. continue to monitor. check fecal occult 7) thrombocytopenia - resolved on 04/17. ctm 8) fall at home with contusions of face and right foot pain/sprain - monitor contusions, no evidence of orbital fracture - PT OT and placement. 04/17 reports pain is improving. to work with physical therapy to assess ability to bear weight. 9) hx of HTN - restart home meds as appropriate, was held during her hypotensive episode 10) a fib on coumadin - holding AC in light of anemia - rate controlled. restart BP meds as tolerated 11) DM - accuchecks and sliding scale. FEN: cardiac diabetic diet, IVF gentle GI prophylaxis: hold protonix for ABDIEL DVT prophylaxis: hold AC for anemia, SCD's Lines: pIV, keep mcintosh in for strict I/Os Code Status:? Full Code Dispo:? guarded More than 35 minutes spent on chart review, patient interaction and assessment and plan. Subjective Date/time seen: 04/17/23 12:25 Interval history: NAOE. pt complains that the bed is uncomfortable and wants to sit up more but otherwise has no complaints whatsoever. she is certainly much
[2023-04-17] MEDS: SODIUM CHLORIDE 0.9% IV 1,000 ML 83 ML IV CONT (12:52)
[2023-04-17 16:29] LABS: Glucose Point of Care 171 mg/dl (65-105)
[2023-04-17 20:06] LABS: Glucose Point of Care 211 mg/dl (65-105)
[2023-04-17] MEDS: FLUTICASONE PROP 110 MCG INHALER 12 GM (*SP) 1 PUFF INHALATION (20:21)
[2023-04-17] MEDS: FERROUS SULFATE 325 MG TABLET DR BY MOUTH (20:51)
[2023-04-17] MEDS: ROSUVASTATIN 5 MG TABLET PO (20:51)
[2023-04-17] MEDS: LATANOPROST 0.005% OP SOLN 2.5 ML BTL 1 DROP EACH EYE (20:51)
[2023-04-18] VITALS (24 sets, daily range): BP systolic 104–129; BP diastolic 55–92; PULSE 53–130; RESP 16–24; TEMP 36.5–37.5; O2SAT 90–100
--- NOTE | 2023-04-18 | ECHO_ITS ---
Patient Info Name: Laurel Rucker Age: 73 years : 1950 Gender: Female Ht: 67 in Wt: 307 lbs BSA: 2.64 m2 HR: 100 bpm BP: 124 / 68 mmHg Heart Rhythm: Sinus Rhythm Technical Quality: Fair Exam Date: 04/18/2023 12:00 PM Exam Location: Echo Lab Patient Status: Inpatient Admit Date: 04/15/2023 Staff Ordering Physician: Phylicia Maldonado MD Sales And Service Representative: Brenda Valerio RDCS Attending Provider: Radha Couch DO Exam Type: CA echo dop color flow w con Study Info Indications - pericardial effusion Complete two-dimensional, color flow and Doppler transthoracic echocardiogram is performed with contrast to opacify the left ventricle and to improve the deliniation of the left ventricle endocardial borders. Contrast/Agitated Saline Contrast/Ag. Saline: Definity Amount: 2.00 ml Administered By: Brenda Valerio RDCS Existing IV Access: Yes IV Access Condition: patent with no signs of infiltration Summary 1. Technically challenging echocardiogram because of obesity/definity contrast utilized. 2. Left ventricular hypertrophy with hyperdynamic systolic function. 3. Severe left atrial enlargement. 4. Calcified mitral valve annulus. 5. Sclerotic aortic valve which is nonstenotic. 6. Atrial fibrillation. 7. Small circumferential pericardial effusion. Left Ventricle Left ventricular chamber dimension is normal. Left ventricular systolic function is hyperdynamic, estimated at >70%. There is mild concentric increased left ventricular wall thickness. The left ventricular diastolic function is indeterminate. Right Ventricle Right ventricular chamber dimension is normal. Left Atria Left atrial chamber dimension is severely enlarged. Right Atria Right atrial chamber dimension is moderately enlarged. Aortic Valve The aortic valve is trileaflet. There is mild aortic valve sclerosis. There is no aortic valve stenosis. Pulmonic Valve The pulmonic valve is not well visualized. Mitral Valve The mitral valve has normal leaflets. There is trace mitral valve regurgitation. The mitral valve annulus is moderately calcified. Tricuspid Valve The tricuspid valve leaflets are normal. There is trace tricuspid valve regurgitation. Pericardium/Pleural There is small circumferential pericardial effusion. Aorta The aortic root size at the sinus of Valsalva is normal. Left Ventricular Outflow Tract Name Value Normal LVOT 2D LVOT Diameter 2.05 cm LVOT Doppler LVOT Peak Gradient 4 mmHg LVOT Mean Gradient 2 mmHg LVOT VTI 25.14 cm LVOT VTI/AV VTI Ratio 0.52 LVOT Stroke Volume 82.86 ml LVOT CO 2.91 l/min LVOT CI 1.10 L/min/m2 Pulmonic Valve Name Value Normal RVOT Doppler RVOT Peak Gradient
[2023-04-18] MEDS: IPRATROPIUM BR 0.02% INH SOLN 0.5 MG/2.5 ML VIAL INHALATION ×4 (02:20→19:57)
[2023-04-18] MEDS: ALBUTEROL SULFATE NEB 2.5 MG/3 ML INH INHALATION ×4 (02:20→19:57)
[2023-04-18 05:16] LABS: Basophils Percent Auto 0.3 % (0.2-1.2); Eosinophils Absolute Auto 0.3 K/mm3 (0-0.3); Eosinophils Percent Auto 5.4 % (0-4.4); Hematocrit 25.4 % (37.0-47.0); Hemoglobin 7.4 g/dL (12.0-15.0); Immature Granulocyte Absolute 0.03 K/mm3 (0.00-0.031); Immature Granulocyte Percent A 0.5 % (0-0.5); Lymphocytes Absolute Auto 0.54 K/mm3 (0.9-3.2); Lymphocytes Percent Auto 8.5 % (18.3-44.2); Mean Corpuscular HGB Conc 29.1 g/dl (32-36); Mean Corpuscular Hemoglobin 31.9 pg (26-34); Mean Corpuscular Volume 109.5 fl (80-100); Mean Platelet Volume 10.6 fl (7.4-10.4); Monocytes Absolute Auto 0.6 K/mm3 (0.1-0.6); Monocytes Percent Auto 9.6 % (2.6-8.5); Neutrophils Absolute Auto 4.8 K/mm3 (1.3-6.7); Neutrophils Percent Auto 75.7 % (45.5-73.1); Platelet Count Result 152 k/mm3 (150-375); Red Blood Count 2.32 M/mm3 (4.2-5.4); Red Cell Distribution Width 14.8 % (11.5-14.5); White Blood Count 6.4 K/mm3 (4.5-10.0)
[2023-04-18 05:30] LABS: Anion Gap 10 mmol/L (8-16); Blood Urea Nitrogen 67 mg/dL (7-17); Calcium 8.6 mg/dL (8.4-10.2); Carbon Dioxide 27 mmol/L (22-30); Chloride 102 mmol/L (98-107); Estimated CRCL calculation 29 ml/min; Estimated Glomerular Filt Rate 21; Glucose 162 mg/dL (65-110); Potassium 4.4 mmol/L (3.4-5.0); Sodium 139 mmol/L (137-145)
[2023-04-18 06:08] LABS: Procalcitonin 0.7 ng/mL
[2023-04-18 08:30] LABS: Glucose Point of Care 153 mg/dl (65-105)
[2023-04-18] MEDS: MONTELUKAST SODIUM 10 MG TABLET PO (08:47)
[2023-04-18] MEDS: LORATADINE 10 MG TABLET PO (08:47)
[2023-04-18] MEDS: GABAPENTIN 300 MG CAPSULE 600 MG PO ×3 (08:47→17:44)
[2023-04-18] MEDS: CYANOCOBALAMIN 1,000 MCG TABLET 1000 MCG PO (08:47)
[2023-04-18] MEDS: INSULIN GLARGINE (*BKC) 100 UNITS/ML 35 UNITS SUB-Q (08:47)
[2023-04-18] MEDS: FLUTICASONE PROP 110 MCG INHALER 12 GM (*SP) 1 PUFF INHALATION ×2 (09:27→19:58)
[2023-04-18 11:32] LABS: Glucose Point of Care 188 mg/dl (65-105)
--- NOTE | 2023-04-18 11:52 | P.CONNP_ITS ---
Assessment and Plan Assessment and plan (1) Acute kidney injury: Code(s): N17.9 - Acute kidney failure, unspecified Status: Acute Assessment and Plan: * noted worsening on 04/15/23 during hospitalization * creatinine seemed to peak at 2.6mg/dl -- down to 2.3mg/dl today * suspicion falls on hypotension and possible overdiuresis * creatinine doing better with s/p trial of gentle IVFs * follow trend of repeat labs and UOP for now (2) Stage 3b chronic kidney disease: Code(s): N18.32 - Chronic kidney disease, stage 3b Status: Chronic Assessment and Plan: * baseline creatinine runs around 1.1 - 1.6mg/dl since 2019 (if not longer) * felt to be secondary to diabetes, hypertension, vascular disease, ANNIE/pulmonary HTN, chronic CHF + diuretic therapy, and age-related change (3) Status post fall: Code(s): Z91.81 - History of falling Status: Acute Assessment and Plan: * with noted injury of facial contusions and right foot pain * no evidence of orbital fracture by imaging * no evidence of RLE fracture by imaging to date -- however, unable to bear weight on right foot * MRI of right foot ordered * PT/OT as tolerated * may need placement on discharge (4) History of chronic CHF: Code(s): Z86.79 - Personal history of other diseases of the circulatory system Status: Acute Assessment and Plan: * diastolic in nature -- preserved EF by last Echo * appears compensated at this time * concern that overdiuresis may to blame for ABDIEL/ARF * diuretics on hold currently * follow volume and respiratory status (5) Essential (primary) hypertension: Code(s): I10 - Essential (primary) hypertension Status: Chronic Assessment and Plan: * a bit on the soft side * off hydralazine * on metoprolol + diltiazem (but this is more for rate control of her atrial fibrillation) * follow trend of hemodynamics (6) Chronic respiratory failure with hypoxia and hypercapnia: Code(s): J96.11 - Chronic respiratory failure with hypoxia; J96.12 - Chronic respiratory failure with hypercapnia Status: Acute Assessment and Plan: * secondary to ANNIE and OHS * PFTs on 01/13/23 did not demonstrate obstruction but severe restrictive abnormality along with decreased diffusing capacity * supposed to be using oxygen at home intermittently (per Pulmonary) * wean oxygen as tolerated but may need this on discharge as well (7) Type 2 diabetes mellitus with diabetic neuropathy: Qualifiers: Diabetes mellitus director long term care insulin use: with senior living use Qualified Code(s): E11.40 - Type 2 diabetes mellitus with diabetic neuropathy, unspecified; Z79.4 - 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 Thank you for allowing me to participate in the care this patient. History of Present Illness Reason for Consult Consult date: 04/18/23 Reason for consult: acute renal failure (on chronic kidney disease) Chief Complaint Chief complaint: Contusions, Ambulatory Dysfunction, Uncontrolled P History of Present Illness Narrative: The patient is a 73-year-old female with an extensive past medical history as outlined below who presented to [facility] Emergency room for generali
--- NOTE | 2023-04-18 11:52 | PM.CNNEP ---
Assessment and Plan Assessment and plan (1) Acute kidney injury: Code(s): N17.9 - Acute kidney failure, unspecified Status: Acute Assessment and Plan: noted worsening on 04/15/23 during hospitalization creatinine seemed to peak at 2.6mg/dl -- down to 2.3mg/dl today suspicion falls on hypotension and possible overdiuresis creatinine doing better with s/p trial of gentle IVFs follow trend of repeat labs and UOP for now (2) Stage 3b chronic kidney disease: Code(s): N18.32 - Chronic kidney disease, stage 3b Status: Chronic Assessment and Plan: baseline creatinine runs around 1.1 - 1.6mg/dl since 2019 (if not longer) felt to be secondary to diabetes, hypertension, vascular disease, ANNIE/pulmonary HTN, chronic CHF + diuretic therapy, and age-related change (3) Status post fall: Code(s): Z91.81 - History of falling Status: Acute Assessment and Plan: with noted injury of facial contusions and right foot pain no evidence of orbital fracture by imaging no evidence of RLE fracture by imaging to date -- however, unable to bear weight on right foot MRI of right foot ordered PT/OT as tolerated may need placement on discharge (4) History of chronic CHF: Code(s): Z86.79 - Personal history of other diseases of the circulatory system Status: Acute Assessment and Plan: diastolic in nature -- preserved EF by last Echo appears compensated at this time concern that overdiuresis may to blame for ABDIEL/ARF diuretics on hold currently follow volume and respiratory status (5) Essential (primary) hypertension: Code(s): I10 - Essential (primary) hypertension Status: Chronic Assessment and Plan: a bit on the soft side off hydralazine on metoprolol + diltiazem (but this is more for rate control of her atrial fibrillation) follow trend of hemodynamics (6) Chronic respiratory failure with hypoxia and hypercapnia: Code(s): J96.11 - Chronic respiratory failure with hypoxia; J96.12 - Chronic respiratory failure with hypercapnia Status: Acute Assessment and Plan: secondary to ANNIE and OHS PFTs on 01/13/23 did not demonstrate obstruction but severe restrictive abnormality along with decreased diffusing capacity supposed to be using oxygen at home intermittently (per Pulmonary) wean oxygen as tolerated but may need this on discharge as well (7) Type 2 diabetes mellitus with diabetic neuropathy: Qualifiers: Diabetes mellitus snf insulin use: with snf use Qualified Code(s): E11.40 - Type 2 diabetes mellitus with diabetic neuropathy, unspecified; 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 Thank you for allowing me to participate in the care this patient. History of Present Illness Reason for Consult Consult date: 04/18/23 Reason for consult: acute renal failure (on chronic kidney disease) Chief Complaint Chief complaint: Contusions, Ambulatory Dysfunction, Uncontrolled P History of Present Illness Narrative: The patient is a 73-year-old female with an extensive past medical history as outlined below who presented to [facility] Emergency room for generalized weakness and inability to walk. The patient initially presented to [facility] Emergency room the day before admission after sustaining a ground level fall. She reports that she tripped without realizing it secondary to her peripheral neuropathy. Subsequent evaluation at that time did not demonstrate any acute fractures or injuries although she did sustain a significant facial hematoma to the right eye and e
[2023-04-18] MEDS: PERFLUTREN LIPID MICROSPHERES 1.5 ML VIAL DILUTED TO 10 ML TOTAL VOLUME IV PUSH (12:44)
[2023-04-18] MEDS: TRIAMCINOLONE ACET 0.1% OINT 15 GM TUBE 1 APPLIC TOPICAL ×2 (13:16→17:52)
[2023-04-18] MEDS: TOLNAFTATE 1% POWDER 45 GM BTL 1 APPLIC TOPICAL ×2 (13:16→21:10)
--- NOTE | 2023-04-18 13:55 | PDONCCN ---
HPI - Date of Consult Date/Time: 04/18/23 18:21 <Víctor Vences - 04/18/23 18:23> 04/18/23 13:55 <Ailyn Faria - 04/18/23 14:07> Requesting Physician: Radha Couch DO <Víctor Vences - 04/18/23 18:23> Radha Couch DO <Ailyn Faria - 04/18/23 14:07> Primary Care Provider: Javier Sarah MD <Víctor Vences - 04/18/23 18:23> Javier Sarah MD <Ailyn Faria - 04/18/23 14:07> - Consult Narrative Reason for consult: Anemia <Ailyn Faria - 04/18/23 14:07> Narrative: Laurel Rucker is a 73 year old female <Víctor Vences - 04/18/23 18:23> Laurel Rucker is a 73 year old female with multiple comorbidities that include Afib, DM, CKD stage 3-4, uterine cancer, hemorrhoids, and osteoporosis, consulted for anemia. She was admitted to the hospital after a fall at home with facial contusions without evidence of facial fractures and a R foot sprain. Most recent labs show Hgb, MCV 102.5, Creatinine 2.30. We have been following Laurel's macrocytic anemia in office. Patient had a bone marrow biospy done on October 14, 2022 that showed no evidence of lymphoma, high grade neoplasm, or dysplasia with a normal karyotype. Her last EGD and colonoscopy showed gastritis, diverticulosis, and external hemorrhoids. Patient denies any recent blood in her stool or urine. Denies any lightheaded or dizziness prior to her fall. Denies any abnormal bleeding or bruising. No other complaints. <Ailyn Fraia - 04/18/23 14:07> Review of Systems - Review of Systems All systems reviewed & are unremarkable except as noted in HPI and bel <Ailyn Faria - 04/18/23 14:07> [facility] Medical History: Medical History (Last Reviewed 04/14/23 @ 03:32 by Devi E. Tiffany, VOLUNTEER ASSISTANT) Accidental fall from bed Adenomatous colon polyp Aortic stenosis Onset Date: ~2017 status post aortic valve replacement(09/18) Arthritis Onset Date: ~2009 Asthma Calcification of left breast on mammography Chronic anticoagulation Chronic back pain CKD (chronic kidney disease) stage 3, GFR 30-59 ml/min CKD stage 3 due to type 2 diabetes mellitus Onset Date: ~05/2019 With history of temporary dialysis during lengthy hospitalization Colon, diverticulosis Diastolic congestive heart failure Onset Date: ~2018 Most recent echo April 2020. Mild LVH. EF 60%. Mild mitral valve regurgitation Diverticulitis Essential (primary) hypertension External hemorrhoids without complication Frequent falls GAVE (gastric antral vascular ectasia) Noted on EGD 12/2020 GERD without esophagitis Glaucoma Gout Hyperlipidemia Onset Date: ~2009 Hypertensive heart and chronic kidney disease with heart failure and stage 1 through stage 4 chronic kidney disease, or unspecified chronic kidney disease Intramuscular hematoma Lumbar spondylosis Lung nodule seen on imaging study Major depressive disorder, recurrent, unspecified Moderate pulmonary hypertension Obstructive sleep apnea Onset Date: ~2014 Uses a CPAP at nighttime. Osteoporosis Peripheral neuropathy Positive colorectal cancer screening using Cologuard test Postmenopausal Pulmonary nodule Toe fracture lt great toe fx. Type 2 diabetes mellitus with diabetic nephropathy, with long-term current use of insulin Unspecified asthma with status asthmaticus Uterine cancer Status post hysterectomy. Vitamin D deficiency <Víctor Vences - 04/18/23 18:23> Medical History (Last Reviewed 04/14/23 @ 03:32 by Devi Allen APRN) Accidental fall from bed Adenomatous colon polyp Aortic stenosis Onset Date: ~2017 status post aortic valve replacement(09/18) Arthritis Onset Date: ~2009 Asthma Calcification of left breast on mammography Chronic anticoagulation Chronic back pain CKD (chronic kidney disease) stage 3, GFR 30-59 ml/min CKD stage 3 due to type 2 diabetes mellitus Onset Date: ~05/2019 With history of temporary dialysis during lengt
--- NOTE | 2023-04-18 15:10 | PM.IMPN ---
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 1) acute encephalopathy, resolved. - admitted A&Ox3, on 04/15 in the AM developed AMS. 2/2 co2 narcosis as it improved after BIPAP use. repeat CT brain w/o con negative. she is non compliant with CPAP. counseled. BIPAP at night. cont duonebs as well. continue to monitor. d/c scheduled ABGs. order as needed. 2) acute hypoxic hypercapnic respiratory failure 2/2 ANNIE/OHS/CHF - ANNIE OHS syndrome. PFT 01/13/23 did not demonstrate obstruction but severe restrictive abnormality along with decreased diffusing capacity. per pulm office reports she was supposed to be using o2 at home intermittently. cont to wean as tolerated. she may need this ongoing 3) HFpEF - compensated, in fact we may have diuresed too aggresively so on 04/17 d/c lasix. - pending echo. mention of tamponade on chest imaging. last echo 71% EF with indeterminate diastolic function in 10/19 - cont daily weights. fluid restriction held temporarily as her kidney function improved with fluid resuscitation. monitor this closely 4) hyperkalemia - mild, resolved after lasix administration 5) ABDIEL on CKD stage 3 - baseline CKD stage 3 w/ sCR 1.3-1.7. worsened after diuresis - now improving after gently fluids on 04/17. so on 04/18 we will continue that and trend bmp in morning. she did also have hypotensive episode on 04/15 when she was altered. - consult nephrology, appreciate their assistance 6) severe macrocytic anemia -?reviewed notes from september 2022. she has elevated retic count. oncology consulted. she had been following as outpatient and had bone marrow biopsy 10/14/22. appreciate their recs. procrit being given so this should help. - so far now evidence of bleeding aside from her contusions. she had EGD and and colonoscopy in september 2022 and required transfusion. mild gastritis, diverticulosis and hemorrhoids were observed. considering her kidney injury we are going to have to hold off on protonix for now - she is on aspirin and lovenox, but holding now. consider restart tomorrow as HB 7.1 to 7.4 today. - fecal occult pending 7) thrombocytopenia - resolved on 04/17. ctm 8) fall at home with contusions of face and right foot pain/sprain - monitor contusions, no evidence of orbital fracture - PT OT and placement. - 04/18 unable to bear any weight on R foot, ordered MRI w/o contrast to assess for soft tissue injury 9) hx of HTN - restart home meds as appropriate, was held during her hypotensive episode 10) a fib on coumadin - holding AC in light of anemia. consider restart tomorrow if HB stable again - rate controlled. restart BP meds as tolerated 11) DM - accuchecks and sliding scale. FEN: cardiac diabetic diet, IVF gentle GI prophylaxis: hold protonix for ABDIEL DVT prophylaxis: hold AC for anemia, SCD's Lines: pIV, d/c mcintosh on 04/18 Code Status:? Full Code Dispo:? stable, but guarded More than 35 minutes spent on chart review, patient interaction and assessment and plan. Subj
--- NOTE | 2023-04-18 15:27 | IVDEFINITY ---
Prior to administration of IV Definity the patient was educated on the risks and benefits of the imaging enhancing agent including potential adverse side effects. The patient verbalized understanding. Allergies were verified. No exclusion criteria were identified and at least one of the following inclusion criteria were met: 1) physician request, 2) patient technically difficult to image (per the [place] [employer] guidelines of two or more segments not discernable within the apical view), or 3) questionable left ventricular function. ?
[2023-04-18] MEDS: EPOETIN ALFA-EPBX 20,000 UNITS/ML VIAL 20000 UNITS SUB-Q (16:02)
[2023-04-18] MEDS: SODIUM CHLORIDE 0.9% IV 1,000 ML 83 ML IV CONT (16:02)
[2023-04-18 16:53] LABS: Glucose Point of Care 194 mg/dl (65-105)
[2023-04-18] MEDS: FERROUS SULFATE 325 MG TABLET DR PO (17:44)
[2023-04-18 20:12] LABS: Glucose Point of Care 230 mg/dl (65-105)
[2023-04-18] MEDS: ROSUVASTATIN 5 MG TABLET PO (20:47)
[2023-04-18] MEDS: ACETAMINOPHEN 325 MG TABLET 650 MG PO (20:53)
[2023-04-18] MEDS: INSULIN ASPART (*BKC) 100 UNITS/ML SUB-Q (21:07)
[2023-04-18] MEDS: LATANOPROST 0.005% OP SOLN 2.5 ML BTL 1 DROP EACH EYE (22:19)
[2023-04-19] VITALS (19 sets, daily range): BP systolic 90–145; BP diastolic 45–90; PULSE 72–138; RESP 17–24; TEMP 36–37; O2SAT 90–100
[2023-04-19] MEDS: ALBUTEROL SULFATE NEB 2.5 MG/3 ML INH INHALATION ×4 (02:10→19:59)
[2023-04-19] MEDS: IPRATROPIUM BR 0.02% INH SOLN 0.5 MG/2.5 ML VIAL INHALATION ×4 (02:10→19:59)
[2023-04-19] MEDS: SODIUM CHLORIDE 0.9% IV 1,000 ML 83 ML IV CONT ×2 (03:05→23:46)
[2023-04-19 05:20] LABS: Hematocrit 24.5 % (37.0-47.0); Mean Corpuscular HGB Conc 28.6 g/dl (32-36); Mean Corpuscular Hemoglobin 31.4 pg (26-34); Mean Corpuscular Volume 109.9 fl (80-100); Mean Platelet Volume 10.6 fl (7.4-10.4); Platelet Count Result 147 k/mm3 (150-375); Red Blood Count 2.23 M/mm3 (4.2-5.4); Red Cell Distribution Width 14.6 % (11.5-14.5); White Blood Count 5.4 K/mm3 (4.5-10.0)
--- NOTE | 2023-04-19 05:21 | PC.NURSE ---
Spoke to Dr. Monae regarding patients heart rate sustaining 120's, frequently 130's and more. One time dose of patient's home metoprolol dose that is on hold ordered.
[2023-04-19 05:32] LABS: Anion Gap 8 mmol/L (8-16); Blood Urea Nitrogen 70 mg/dL (7-17); Calcium 8.2 mg/dL (8.4-10.2); Carbon Dioxide 27 mmol/L (22-30); Chloride 103 mmol/L (98-107); Estimated CRCL calculation 32 ml/min; Estimated Glomerular Filt Rate 23; Glucose 183 mg/dL (65-110); Potassium 4.4 mmol/L (3.4-5.0); Sodium 138 mmol/L (137-145)
[2023-04-19] MEDS: METOPROLOL SUCCINATE EXT REL 100 MG TABCR 200 MG PO (06:36)
[2023-04-19 08:04] LABS: Glucose Point of Care 171 mg/dl (65-105)
[2023-04-19] MEDS: FLUTICASONE PROP 110 MCG INHALER 12 GM (*SP) 1 PUFF INHALATION ×2 (08:23→20:00)
--- NOTE | 2023-04-19 09:15 | PCOTNOTE ---
Patient out of the room at this time. Patient having a MRI of her Right foot.
--- NOTE | 2023-04-19 10:15 | PM.PNNEP ---
Progress Note: A&P Assessment and Plan (1) Acute kidney injury: Code(s): N17.9 - Acute kidney failure, unspecified Status: Acute Assessment and Plan: noted worsening on 04/15/23 during hospitalization creatinine seemed to peak at 2.6mg/dl -- down to 2.3mg/dl today suspicion falls on hypotension and possible overdiuresis creatinine doing better with s/p trial of gentle IVFs follow trend of repeat labs and UOP for now (2) Stage 3b chronic kidney disease: Code(s): N18.32 - Chronic kidney disease, stage 3b Status: Chronic Assessment and Plan: baseline creatinine runs around 1.1 - 1.6mg/dl since 2019 (if not longer) felt to be secondary to diabetes, hypertension, vascular disease, ANNIE/pulmonary HTN, chronic CHF + diuretic therapy, and age-related change (3) Status post fall: Code(s): Z91.81 - History of falling Status: Acute Assessment and Plan: with noted injury of facial contusions and right foot pain no evidence of orbital fracture by imaging no evidence of RLE fracture by x-ray imaging to date -- however, unable to bear weight on right foot MRI of right foot results noted (see #4) PT/OT as tolerated may need placement on discharge (4) Ankle fracture: Qualifiers: Encounter type: initial encounter Fracture type: closed Laterality: right Qualified Code(s): S82.891A - Other fracture of right lower leg, initial encounter for closed fracture Code(s): S82.899A - Other fracture of unspecified lower leg, initial encounter for closed fracture Status: Acute Assessment and Plan: as noted by right ankle MRI Orthopedic consulted (5) History of chronic CHF: Code(s): Z86.79 - Personal history of other diseases of the circulatory system Status: Acute Assessment and Plan: diastolic in nature -- preserved EF by last Echo appears compensated at this time concern that overdiuresis may to blame for ABDIEL/ARF diuretics on hold currently follow volume and respiratory status (6) Essential (primary) hypertension: Code(s): I10 - Essential (primary) hypertension Status: Chronic Assessment and Plan: still a bit on the soft side off hydralazine on metoprolol + diltiazem (but this is more for rate control of her atrial fibrillation) follow trend of hemodynamics (7) Chronic respiratory failure with hypoxia and hypercapnia: Code(s): J96.11 - Chronic respiratory failure with hypoxia; J96.12 - Chronic respiratory failure with hypercapnia Status: Acute Assessment and Plan: secondary to ANNIE and OHS PFTs on 01/13/23 did not demonstrate obstruction but severe restrictive abnormality along with decreased diffusing capacity supposed to be using oxygen at home intermittently (per Pulmonary) wean oxygen as tolerated but may need this on discharge as well (8) Type 2 diabetes mellitus with diabetic neuropathy: Qualifiers: Diabetes mellitus prison insulin use: with prison use Qualified Code(s): E11.40 - Type 2 diabetes mellitus with diabetic neuropathy, unspecified; 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 Subjective Date/time seen: 04/19/23 10:15 Interval history: Follow-up for acute kidney injury/acute renal failure on chronic kidney disease. Creatinine/renal function improving at this time; results of right ankle MRI noted and Orthopedics consulted; no apparent distress noted; no issues overnight or earlier this morning. Exam Narrative: General: Large female in NAD Heart: normal S1 and S2; no rub Lungs: distant breath sounds, decreased at bases Abdomen: soft, nontender, nondistended, positive bowel sounds Extremities: no
--- NOTE | 2023-04-19 10:15 | P.PNNP_ITS ---
Progress Note: A&P Assessment and Plan (1) Acute kidney injury: Code(s): N17.9 - Acute kidney failure, unspecified Status: Acute Assessment and Plan: * noted worsening on 04/15/23 during hospitalization * creatinine seemed to peak at 2.6mg/dl -- down to 2.3mg/dl today * suspicion falls on hypotension and possible overdiuresis * creatinine doing better with s/p trial of gentle IVFs * follow trend of repeat labs and UOP for now (2) Stage 3b chronic kidney disease: Code(s): N18.32 - Chronic kidney disease, stage 3b Status: Chronic Assessment and Plan: * baseline creatinine runs around 1.1 - 1.6mg/dl since 2019 (if not longer) * felt to be secondary to diabetes, hypertension, vascular disease, ANNIE/pulmonary HTN, chronic CHF + diuretic therapy, and age-related change (3) Status post fall: Code(s): Z91.81 - History of falling Status: Acute Assessment and Plan: * with noted injury of facial contusions and right foot pain * no evidence of orbital fracture by imaging * no evidence of RLE fracture by x-ray imaging to date -- however, unable to bear weight on right foot * MRI of right foot results noted (see #4) * PT/OT as tolerated * may need placement on discharge (4) Ankle fracture: Qualifiers: Encounter type: initial encounter Fracture type: closed Laterality: right Qualified Code(s): S82.891A - Other fracture of right lower leg, initial encounter for closed fracture Code(s): S82.899A - Other fracture of unspecified lower leg, initial encounter for closed fracture Status: Acute Assessment and Plan: * as noted by right ankle MRI * Orthopedic consulted (5) History of chronic CHF: Code(s): Z86.79 - Personal history of other diseases of the circulatory system Status: Acute Assessment and Plan: * diastolic in nature -- preserved EF by last Echo * appears compensated at this time * concern that overdiuresis may to blame for ABDIEL/ARF * diuretics on hold currently * follow volume and respiratory status (6) Essential (primary) hypertension: Code(s): I10 - Essential (primary) hypertension Status: Chronic Assessment and Plan: * still a bit on the soft side * off hydralazine * on metoprolol + diltiazem (but this is more for rate control of her atrial fibrillation) * follow trend of hemodynamics (7) Chronic respiratory failure with hypoxia and hypercapnia: Code(s): J96.11 - Chronic respiratory failure with hypoxia; J96.12 - Chronic respiratory failure with hypercapnia Status: Acute Assessment and Plan: * secondary to ANNIE and OHS * PFTs on 01/13/23 did not demonstrate obstruction but severe restrictive abnormality along with decreased diffusing capacity * supposed to be using oxygen at home intermittently (per Pulmonary) * wean oxygen as tolerated but may need this on discharge as well (8) Type 2 diabetes mellitus with diabetic neuropathy: Qualifiers: Diabetes mellitus longterm insulin use: with meterman use Qualified Code(s): E11.40 - Type 2 diabetes mellitus with diabetic neuropathy, unspeci fied; Z79.4 - 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 Subjective Date/time seen: 04/19/23 10:15 Interval history: Follow-up for acute kidney injury/acute renal
[2023-04-19] MEDS: ACETAMINOPHEN 325 MG TABLET 650 MG PO ×2 (10:49→22:30)
[2023-04-19] MEDS: MONTELUKAST SODIUM 10 MG TABLET PO (10:49)
[2023-04-19] MEDS: GABAPENTIN 300 MG CAPSULE 600 MG PO ×3 (10:49→17:26)
[2023-04-19] MEDS: LORATADINE 10 MG TABLET PO (10:49)
[2023-04-19] MEDS: FERROUS SULFATE 325 MG TABLET DR PO ×3 (10:50→17:27)
[2023-04-19] MEDS: IRON SUCROSE COMPLEX 500 MG in SODIUM CHLORIDE 0.9% IV 250 ML 78.57 MG IVPB (10:50)
[2023-04-19] MEDS: TRIAMCINOLONE ACET 0.1% OINT 15 GM TUBE 1 APPLIC TOPICAL ×2 (10:50→17:27)
[2023-04-19] MEDS: CYANOCOBALAMIN 1,000 MCG TABLET 1000 MCG PO (10:50)
[2023-04-19] MEDS: INSULIN GLARGINE (*BKC) 100 UNITS/ML 35 UNITS SUB-Q (10:50)
[2023-04-19] MEDS: TOLNAFTATE 1% POWDER 45 GM BTL 1 APPLIC TOPICAL ×2 (10:50→20:18)
[2023-04-19 12:04] LABS: Glucose Point of Care 201 mg/dl (65-105)
[2023-04-19] MEDS: INSULIN ASPART (*BKC) 100 UNITS/ML SUB-Q (12:43)
--- NOTE | 2023-04-19 13:14 | PM.CNOR ---
Assessment and Plan Assessment and plan (1) Ankle fracture: Qualifiers: Encounter type: initial encounter Fracture type: closed Laterality: right Qualified Code(s): S82.891A - Other fracture of right lower leg, initial encounter for closed fracture <SHAD Beltre - Last Filed: 04/19/23 16:26> Code(s): S82.899A - Other fracture of unspecified lower leg, initial encounter for closed fracture <SHAD Beltre - Last Filed: 04/19/23 16:26> Status: Acute <SHAD Beltre - Last Filed: 04/19/23 16:26> Assessment and Plan: History, exam, radiographs and MRI reviewed. MRI of the right ankle reveals a nondisplaced intra-articular fracture at the posterior malleolus. The fracture type and injury as well as radiographs discussed with the patient and family. Operative and nonoperative treatment options reviewed. Recommended non operative treatment at this time. Risk of nonunion, malunion or late displacement discussed. Stiffness, pain and possible dysfunction of the joint discussed. Fracture precautions and activity restrictions reviewed. The patient verbalizes understanding. Patient to be fit with cam walker boot. PT/OT. WBAT RLE with boot in place. Walker. HIGH FALL RISK. Patient would likely benefit from [facility] or SNF at discharge for further rehabilitation given multiple recent falls. Pain control. Ice. Elevate. Will plan for follow up in the outpatient orthopedic clinic in 6 weeks for repeat radiographs. Thank you for allowing us to assist in the care of this patient. <SHAD Beltre - Last Filed: 04/19/23 16:26> Assessment and Plan: History, radiographs, MRI, consultation note reviewed. Injury approximately a week ago. Persistent right ankle pain despite negative x-rays. On MRI found to have occult fracture posterior malleolus. Nondisplaced. Indicated for non operative treatment with fracture boot. With follow-up with radiographs in 3-4 weeks. Discussed surgical indications for displacement of the fracture. <Chivo Crawford MD - Last Filed: 04/19/23 16:27> History of Present Illness HPI Consult date: 04/19/23 <SHAD Beltre - Last Filed: 04/19/23 16:26> 04/19/23 <Chivo Crawford MD - Last Filed: 04/19/23 16:27> Chief complaint: Contusions, Ambulatory Dysfunction, Uncontrolled P <SHAD Beltre - Last Filed: 04/19/23 16:26> Narrative: 73-year-old female who was seen in the emergency room on April 11, April 12 and subsequently admitted on April 13. The patient had a fall on April 12 which prompted her arrival to the emergency room. Initial trauma radiographs did not reveal any acute fractures or abnormalities. She did sustain an extensive hematoma to the right forehead and eye. After the initial fall, she was discharged home and was unable to bear weight on the right lower extremity which prompted her arrival back to the emergency room for admission for further assistance. MRI of the right foot reveals a nondisplaced intra-articular fracture at the posterior malleolus. Orthopedic consult requested for further recommendations. <SHAD Beltre - Last Filed: 04/19/23 16:26> Review of Systems Review of Systems: All systems reviewed & are unremarkable except as noted in HPI and below <SHAD Beltre - Last Filed: 04/19/23 16:26> [facility] Past Medical History Medical History: Medical History (Updated 04/19/23 @ 16:20 by SHAD Beltre) Accidental fall from bed Adenomatous colon polyp Ankle fracture Aortic stenosis (~2017) status post aortic valve replacement(09/18) Arthritis (~2009) Asthma Calcification of left breast on mammography Chronic anticoagulation Chronic back pain CKD (chronic kidney disease) stage 3, GFR 30-59 ml/min CKD stage 3 due to type 2 diabetes mellitus (~05/2019) With history of temporary dialysis during lengthy hospitalization Colon, diverticulosis
[2023-04-19 17:02] LABS: Glucose Point of Care 164 mg/dl (65-105)
[2023-04-19 17:28] LABS: Glucose Point of Care 155 mg/dl (65-105)
--- NOTE | 2023-04-19 19:46 | PM.IMPN ---
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 Status: Acute (6) Ankle fracture: Qualifiers: Encounter type: initial encounter Fracture type: closed Laterality: right Qualified Code(s): S82.891A - Other fracture of right lower leg, initial encounter for closed fracture Code(s): S82.899A - Other fracture of unspecified lower leg, initial encounter for closed fracture Status: Acute (7) Lumbar stenosis without neurogenic claudication: Code(s): M48.061 - Spinal stenosis, lumbar region without neurogenic claudication Status: Chronic (8) Morbid obesity: Onset Date: ~2009 Code(s): E66.01 - Morbid (severe) obesity due to excess calories Status: Chronic Plan 73 y/o F presents here with R foot pain and reduced mobility after a ground level fall with PMH of aortic stenosis s/p TAVR,?a fib on coumadin, external hemorrhoids, CKD stage 3, HFpEF, HTN, GAVE on EGD/gastritis, GERD, HLD, gout, ANNIE non compliant with CPAP, osteoporosis, peripheral neuropathy, diabetes, uterine cancer (s/p hysterectomy), and vitamin D deficiency. 1) right ankle fracture: - patient is a confirmed right ankle fracture based on MRI - orthopedic consult given who evaluated the patient and gave surgical/nonsurgical options - patient in favor nonsurgical intervention at this time - Follow up closely as per Orthopedics for further recommendations - she would require to be repeated with the cam walker boot upon discharge - PT/OT evaluation ordered - care coordination to assist with DC planning and procurement of cam walker boot 2) acute hypoxic hypercapnic respiratory failure 2/2 ANNIE/OHS/CHF - ANNIE OHS syndrome. PFT 01/13/23 did not demonstrate obstruction but severe restrictive abnormality along with decreased diffusing capacity. per pulm office reports she was supposed to be using o2 at home intermittently. - cont to wean off Oxygen as tolerated, keeping O2 sats between 90-94%. she may need this ongoing 3) HFpEF - compensated, in fact we may have diuresed too aggresively so on 04/17 d/c lasix. - pending echo. mention of tamponade on chest imaging. last echo 71% EF with indeterminate diastolic function in 10/19 - cont daily weights. fluid restriction held temporarily as her kidney function improved with fluid resuscitation. monitor this closely 4) hyperkalemia - mild, resolved after lasix administration 5) ABDIEL on CKD stage 3 - baseline CKD stage 3 w/ sCR 1.3-1.7. worsened after diuresis - now improving after gently fluids on 04/17. so on 04/18 we will continue that and trend bmp in morning. she did also have hypotensive episode on 04/15 when she was altered. - consult nephrology, appreciate their assistance _ Monitor labs closely for renal functions 6) severe macrocytic anemia -?reviewed notes from september 2022. she has elevated retic count. oncology consulted. she had been following as outpatient and had bone marrow biopsy 10/14/22. appreciate their recs. procrit being given so this should help. - so far now evidence of bleeding aside from her contusions. she had EGD and and colonoscopy in september 2022 and required transfusion. mild gastritis, diverticulosis and hemorrhoids were observed. considering her kidney injury we are going to have to hold off on protonix for now - she is on aspirin and lovenox, but holding now. - fecal occult pending -
[2023-04-19] MEDS: LATANOPROST 0.005% OP SOLN 2.5 ML BTL 1 DROP EACH EYE (20:18)
[2023-04-19] MEDS: ROSUVASTATIN 5 MG TABLET PO (20:18)
[2023-04-19 22:21] LABS: Glucose Point of Care 145 mg/dl (65-105)
[2023-04-20] VITALS (20 sets, daily range): BP systolic 90–122; BP diastolic 45–62; PULSE 74–110; RESP 16–22; TEMP 36.3–37.2; O2SAT 95–98
[2023-04-20] MEDS: ALBUTEROL SULFATE NEB 2.5 MG/3 ML INH INHALATION ×3 (02:11→20:20)
[2023-04-20] MEDS: IPRATROPIUM BR 0.02% INH SOLN 0.5 MG/2.5 ML VIAL INHALATION ×3 (02:12→20:21)
[2023-04-20 06:15] LABS: Basophils Absolute Auto 0.1 K/mm3 (0.0-0.1); Basophils Percent Auto 0.9 % (0.2-1.2); Eosinophils Absolute Auto 0.4 K/mm3 (0-0.3); Eosinophils Percent Auto 6.6 % (0-4.4); Hematocrit 25.7 % (37.0-47.0); Hemoglobin 7.4 g/dL (12.0-15.0); Immature Granulocyte Absolute 0.05 K/mm3 (0.00-0.031); Immature Granulocyte Percent A 0.9 % (0-0.5); Lymphocytes Absolute Auto 0.52 K/mm3 (0.9-3.2); Mean Corpuscular HGB Conc 28.8 g/dl (32-36); Mean Corpuscular Hemoglobin 31.6 pg (26-34); Mean Corpuscular Volume 109.8 fl (80-100); Monocytes Absolute Auto 0.5 K/mm3 (0.1-0.6); Monocytes Percent Auto 8.3 % (2.6-8.5); Neutrophils Absolute Auto 4.3 K/mm3 (1.3-6.7); Neutrophils Percent Auto 74.3 % (45.5-73.1); Platelet Count Result 159 k/mm3 (150-375); Red Blood Count 2.34 M/mm3 (4.2-5.4); Red Cell Distribution Width 14.6 % (11.5-14.5); White Blood Count 5.8 K/mm3 (4.5-10.0)
[2023-04-20 06:30] LABS: Anion Gap 9 mmol/L (8-16); Blood Urea Nitrogen 69 mg/dL (7-17); Calcium 8.6 mg/dL (8.4-10.2); Carbon Dioxide 27 mmol/L (22-30); Chloride 103 mmol/L (98-107); Estimated CRCL calculation 31 ml/min; Estimated Glomerular Filt Rate 22; Glucose 140 mg/dL (65-110); Potassium 4.3 mmol/L (3.4-5.0); Sodium 139 mmol/L (137-145)
[2023-04-20 07:00] LABS: Anisocytosis 1+ (NORMAL); Hypochromasia 1+ (NORMAL); Platelet Estimate Adequate (Adequate); Schistocytes None Seen (NORMAL)
[2023-04-20] MEDS: FLUTICASONE PROP 110 MCG INHALER 12 GM (*SP) 1 PUFF INHALATION ×2 (07:06→20:21)
[2023-04-20 08:30] LABS: Glucose Point of Care 140 mg/dl (65-105)
[2023-04-20] MEDS: MONTELUKAST SODIUM 10 MG TABLET PO (09:16)
[2023-04-20] MEDS: LORATADINE 10 MG TABLET PO (09:16)
[2023-04-20] MEDS: INSULIN GLARGINE (*BKC) 100 UNITS/ML 35 UNITS SUB-Q (09:16)
[2023-04-20] MEDS: FERROUS SULFATE 325 MG TABLET DR PO ×3 (09:16→17:38)
[2023-04-20] MEDS: CYANOCOBALAMIN 1,000 MCG TABLET 1000 MCG PO (09:16)
[2023-04-20] MEDS: GABAPENTIN 300 MG CAPSULE 600 MG PO ×3 (09:16→17:38)
[2023-04-20] MEDS: TRIAMCINOLONE ACET 0.1% OINT 15 GM TUBE 1 APPLIC TOPICAL ×2 (09:17→17:39)
[2023-04-20] MEDS: TOLNAFTATE 1% POWDER 45 GM BTL 1 APPLIC TOPICAL ×2 (09:17→21:22)
[2023-04-20] MEDS: IRON SUCROSE COMPLEX 500 MG in SODIUM CHLORIDE 0.9% IV 250 ML 78.57 MG IVPB (10:36)
[2023-04-20] MEDS: ACETAMINOPHEN 325 MG TABLET 650 MG PO ×2 (11:15→21:16)
[2023-04-20 11:40] LABS: Glucose Point of Care 205 mg/dl (65-105)
--- NOTE | 2023-04-20 11:59 | PCOTNOTE ---
Patient refused to participate for A.M. treatment session.
[2023-04-20] MEDS: INSULIN ASPART (*BKC) 100 UNITS/ML SUB-Q (12:20)
--- NOTE | 2023-04-20 12:37 | PM.PNNEP ---
Progress Note: A&P Assessment and Plan (1) Acute kidney injury: Code(s): N17.9 - Acute kidney failure, unspecified Status: Acute Assessment and Plan: noted worsening on 04/15/23 during hospitalization creatinine seemed to peak at 2.6mg/dl -- down to 2.3mg/dl today suspicion falls on hypotension and possible overdiuresis creatinine doing better with s/p trial of gentle IVFs follow trend of repeat labs and UOP for now (2) Stage 3b chronic kidney disease: Code(s): N18.32 - Chronic kidney disease, stage 3b Status: Chronic Assessment and Plan: baseline creatinine runs around 1.1 - 1.6mg/dl since 2019 (if not longer) felt to be secondary to diabetes, hypertension, vascular disease, ANNIE/pulmonary HTN, chronic CHF + diuretic therapy, and age-related change (3) Status post fall: Code(s): Z91.81 - History of falling Status: Acute Assessment and Plan: with noted injury of facial contusions and right foot pain no evidence of orbital fracture by imaging no evidence of RLE fracture by x-ray imaging to date -- however, unable to bear weight on right foot MRI of right foot results noted (see #4) PT/OT as tolerated may need placement on discharge (4) Ankle fracture: Qualifiers: Encounter type: initial encounter Fracture type: closed Laterality: right Qualified Code(s): S82.891A - Other fracture of right lower leg, initial encounter for closed fracture Code(s): S82.899A - Other fracture of unspecified lower leg, initial encounter for closed fracture Status: Acute Assessment and Plan: as noted by right ankle MRI Orthopedic consulted (5) History of chronic CHF: Code(s): Z86.79 - Personal history of other diseases of the circulatory system Status: Acute Assessment and Plan: diastolic in nature -- preserved EF by last Echo appears compensated at this time concern that overdiuresis may to blame for ABDIEL/ARF diuretics on hold currently follow volume and respiratory status (6) Anemia: Qualifiers: Anemia type: due to chronic kidney disease Code(s): D64.9 - Anemia, unspecified Status: Acute Assessment and Plan: due to ABDIEL, CKD, and iron deficiency on oral iron and IV venofer s/p Epogen dosing Hematology following folllow trend of H/H (7) Essential (primary) hypertension: Code(s): I10 - Essential (primary) hypertension Status: Chronic Assessment and Plan: still a bit on the soft side off hydralazine on metoprolol + diltiazem (but this is more for rate control of her atrial fibrillation) follow trend of hemodynamics (8) Chronic respiratory failure with hypoxia and hypercapnia: Code(s): J96.11 - Chronic respiratory failure with hypoxia; J96.12 - Chronic respiratory failure with hypercapnia Status: Acute Assessment and Plan: secondary to ANNIE and OHS PFTs on 01/13/23 did not demonstrate obstruction but severe restrictive abnormality along with decreased diffusing capacity supposed to be using oxygen at home intermittently (per Pulmonary) wean oxygen as tolerated but may need this on discharge as well (9) Type 2 diabetes mellitus with diabetic neuropathy: Qualifiers: Diabetes mellitus fdc insulin use: with 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 Subjective Date/time seen: 04/20/23 12:37 Interval history: Follow-up for acute kidney injury/acute renal failure on chronic kidney disease. Renal function/creatinine about the same if not a tad worse by AM labs today; no other acute i
--- NOTE | 2023-04-20 12:37 | P.PNNP_ITS ---
Progress Note: A&P Assessment and Plan (1) Acute kidney injury: Code(s): N17.9 - Acute kidney failure, unspecified Status: Acute Assessment and Plan: * noted worsening on 04/15/23 during hospitalization * creatinine seemed to peak at 2.6mg/dl -- down to 2.3mg/dl today * suspicion falls on hypotension and possible overdiuresis * creatinine doing better with s/p trial of gentle IVFs * follow trend of repeat labs and UOP for now (2) Stage 3b chronic kidney disease: Code(s): N18.32 - Chronic kidney disease, stage 3b Status: Chronic Assessment and Plan: * baseline creatinine runs around 1.1 - 1.6mg/dl since 2019 (if not longer) * felt to be secondary to diabetes, hypertension, vascular disease, ANNIE/pulmonary HTN, chronic CHF + diuretic therapy, and age-related change (3) Status post fall: Code(s): Z91.81 - History of falling Status: Acute Assessment and Plan: * with noted injury of facial contusions and right foot pain * no evidence of orbital fracture by imaging * no evidence of RLE fracture by x-ray imaging to date -- however, unable to bear weight on right foot * MRI of right foot results noted (see #4) * PT/OT as tolerated * may need placement on discharge (4) Ankle fracture: Qualifiers: Encounter type: initial encounter Fracture type: closed Laterality: right Qualified Code(s): S82.891A - Other fracture of right lower leg, initial encounter for closed fracture Code(s): S82.899A - Other fracture of unspecified lower leg, initial encounter for closed fracture Status: Acute Assessment and Plan: * as noted by right ankle MRI * Orthopedic consulted (5) History of chronic CHF: Code(s): Z86.79 - Personal history of other diseases of the circulatory system Status: Acute Assessment and Plan: * diastolic in nature -- preserved EF by last Echo * appears compensated at this time * concern that overdiuresis may to blame for ABDIEL/ARF * diuretics on hold currently * follow volume and respiratory status (6) Anemia: Qualifiers: Anemia type: due to chronic kidney disease Code(s): D64.9 - Anemia, unspecified Status: Acute Assessment and Plan: * due to ABDIEL, CKD, and iron deficiency * on oral iron and IV venofer * s/p Epogen dosing * Hematology following * folllow trend of H/H (7) Essential (primary) hypertension: Code(s): I10 - Essential (primary) hypertension Status: Chronic Assessment and Plan: * still a bit on the soft side * off hydralazine * on metoprolol + diltiazem (but this is more for rate control of her atrial fibrillation) * follow trend of hemodynamics (8) Chronic respiratory failure with hypoxia and hypercapnia: Code(s): J96.11 - Chronic respiratory failure with hypoxia; J96.12 - Chronic respiratory failure with hypercapnia Status: Acute Assessment and Plan: * secondary to ANNIE and OHS * PFTs on 01/13/23 did not demonstrate obstruction but severe restrictive abnormality along with decreased diffusing capacity * supposed to be using oxygen at home intermittently (per Pulmonary) * wean oxygen as tolerated but may need this on discharge as well (9) Type 2 diabetes mellitus with diabetic neuropathy: Qualifiers: Diabetes mellitus [facility] insulin use: with watermaster use Qualified Code(s): E11.40 - Type 2 diabetes mellitus with diabetic neuropathy, unspecified; Z79.4 - nursing home (current) use of insulin Code(s): E11.40 - Typ
--- NOTE | 2023-04-20 13:46 | PM.IMPN ---
Progress Note: A&P Assessment and Plan (1) Altered mental status: Qualifiers: Altered mental status type: disorientation Qualified Code(s): R41.0 - Disorientation, unspecified Code(s): R41.82 - Altered mental status, unspecified Status: Acute (2) Multiple contusions: Code(s): T07.XXXA - Unspecified multiple injuries, initial encounter Status: Acute (3) Ambulatory dysfunction: Code(s): R26.2 - Difficulty in walking, not elsewhere classified Status: Acute (4) CKD (chronic kidney disease) stage 3, GFR 30-59 ml/min: Code(s): N18.30 - Chronic kidney disease, stage 3 unspecified Status: Acute (5) Chronic anticoagulation: Code(s): Z79.01 - shelter (current) use of anticoagulants Status: Acute (6) Ankle fracture: Qualifiers: Encounter type: initial encounter Fracture type: closed Laterality: right Qualified Code(s): S82.891A - Other fracture of right lower leg, initial encounter for closed fracture Code(s): S82.899A - Other fracture of unspecified lower leg, initial encounter for closed fracture Status: Acute (7) Lumbar stenosis without neurogenic claudication: Code(s): M48.061 - Spinal stenosis, lumbar region without neurogenic claudication Status: Chronic (8) Morbid obesity: Onset Date: ~2009 Code(s): E66.01 - Morbid (severe) obesity due to excess calories Status: Chronic Plan 73 y/o F presents here with R foot pain and reduced mobility after a ground level fall with PMH of aortic stenosis s/p TAVR,?a fib on coumadin, external hemorrhoids, CKD stage 3, HFpEF, HTN, GAVE on EGD/gastritis, GERD, HLD, gout, ANNIE non compliant with CPAP, osteoporosis, peripheral neuropathy, diabetes, uterine cancer (s/p hysterectomy), and vitamin D deficiency. Awaiting nursing/rehab placement. 1) right ankle fracture: - patient is a confirmed right ankle fracture based on MRI - orthopedic consult given who evaluated the patient and gave surgical/nonsurgical options - patient in favor nonsurgical intervention at this time - Follow up closely as per Orthopedics for further recommendations - she would require to be repeated with the cam walker boot upon discharge - PT/OT evaluation ordered - care coordination to assist with DC planning and procurement of cam walker boot 2) acute hypoxic hypercapnic respiratory failure 2/2 ANNIE/OHS/CHF - ANNIE OHS syndrome. PFT 01/13/23 did not demonstrate obstruction but severe restrictive abnormality along with decreased diffusing capacity. per pulm office reports she was supposed to be using o2 at home intermittently. - cont to wean off Oxygen as tolerated, keeping O2 sats between 90-94%. she may need this ongoing 3) HFpEF - compensated, in fact we may have diuresed too aggresively so on 04/17 d/c lasix. - pending echo. mention of tamponade on chest imaging. last echo 71% EF with indeterminate diastolic function in 10/19 - cont daily weights. fluid restriction held temporarily as her kidney function improved with fluid resuscitation. monitor this closely 4) hyperkalemia - mild, resolved after lasix administration 5) ABDIEL on CKD stage 3 - baseline CKD stage 3 w/ sCR 1.3-1.7. worsened after diuresis - now improving after gently fluids on 04/17. so on 04/18 we will continue that and trend bmp in morning. she did also have hypotensive episode on 04/15 when she was altered. - consult nephrology, appreciate their assistance _ Monitor labs closely for renal functions 6) severe macrocytic anemia -?reviewed notes from september 2022. she has elevated retic count. oncology consulted. she had been following as outpatient and had bone marrow biopsy 10/14/22. appreciate their recs. procrit being given so this should help. - so far now evidence of bleeding aside from her contusions. she had EGD and and colonoscopy in september 2022 and required transfusion. mild gastritis, diverticulosis and hemorrhoids were observed. c
[2023-04-20 17:05] LABS: Glucose Point of Care 173 mg/dl (65-105)
[2023-04-20 20:11] LABS: Haptoglobin 212 mg/dL (43-212)
[2023-04-20 21:07] LABS: Glucose Point of Care 168 mg/dl (65-105)
[2023-04-20] MEDS: ROSUVASTATIN 5 MG TABLET PO (21:16)
[2023-04-20] MEDS: SODIUM CHLORIDE 0.9% IV 1,000 ML 83 ML IV CONT (21:21)
[2023-04-21] VITALS (21 sets, daily range): BP systolic 103–138; BP diastolic 53–86; PULSE 75–121; RESP 16–24; TEMP 36.1–37.6; O2SAT 90–99
[2023-04-21] MEDS: ALBUTEROL SULFATE NEB 2.5 MG/3 ML INH INHALATION ×4 (02:00→20:07)
[2023-04-21] MEDS: IPRATROPIUM BR 0.02% INH SOLN 0.5 MG/2.5 ML VIAL INHALATION ×4 (02:00→20:07)
[2023-04-21] MEDS: ACETAMINOPHEN 325 MG TABLET 650 MG PO ×3 (06:17→21:02)
[2023-04-21 08:17] LABS: Glucose Point of Care 141 mg/dl (65-105)
[2023-04-21] MEDS: GABAPENTIN 300 MG CAPSULE 600 MG PO ×3 (08:37→17:07)
[2023-04-21] MEDS: CYANOCOBALAMIN 1,000 MCG TABLET 1000 MCG PO (08:38)
[2023-04-21] MEDS: MONTELUKAST SODIUM 10 MG TABLET PO (08:38)
[2023-04-21] MEDS: METOPROLOL TARTRATE 25 MG TABLET PO ×2 (08:38→21:00)
[2023-04-21] MEDS: FERROUS SULFATE 325 MG TABLET DR PO ×3 (08:38→17:07)
[2023-04-21] MEDS: LORATADINE 10 MG TABLET PO (08:38)
[2023-04-21] MEDS: INSULIN GLARGINE (*BKC) 100 UNITS/ML 35 UNITS SUB-Q (08:40)
[2023-04-21] MEDS: dilTIAZem HCL CD 120 MG CAP.24HR PO (08:40)
[2023-04-21] MEDS: FLUTICASONE PROP 110 MCG INHALER 12 GM (*SP) 1 PUFF INHALATION (08:41)
[2023-04-21] MEDS: TOLNAFTATE 1% POWDER 45 GM BTL 1 APPLIC TOPICAL ×2 (08:44→21:03)
[2023-04-21] MEDS: TRIAMCINOLONE ACET 0.1% OINT 15 GM TUBE 1 APPLIC TOPICAL (08:45)
--- NOTE | 2023-04-21 09:11 | PM.PNORT ---
Progress Note: A&P Assessment and Plan (1) Fracture of posterior malleolus of right tibia: Qualifiers: Encounter type: subsequent encounter Fracture type: closed Fracture healing: with routine healing Qualified Code(s): S82.391D - Other fracture of lower end of right tibia, subsequent encounter for closed fracture with routine healing Code(s): S82.391A - Other fracture of lower end of right tibia, initial encounter for closed fracture Status: Acute Assessment and Plan: right ankle posterior malleolus fracture. Fracture boot in room. PT/OT with fracture boot on, weight-bearing as tolerated. Placement. Subjective Subjective Date/Time Seen: 04/21/23 09:11 Principal diagnosis: RT ankle fx Interval history: 1 week status post ground level fall. Mental status changes with confusion. Right ankle pain. Exam HENMT: Head: hematoma right occipital and right temporal Mouth: Yes moist mucous membranes Eyes: General: appearance normal, both eyes and all related structures Neck: Neck: supple and no JVD Extrem: Right lower extremity: foot Details: normal capillary refill, toes with normal ROM, no edema, ecchymosis, vascular exam Details: dorsalis pedis pulse present, tendon exam Details: active flexion normal and motor-sensory exam Details: two point discrimination normal and light-touch normal; no unusual warmth and no crepitus Psych: Affect: normal affect Objective Data Vital Signs Vital Signs: Vital Signs - 24 hr 04/20/23 10:11 04/20/23 09:17 04/20/23 12:00 Temperature 99.0 F Pulse Rate 107 H 102 H Respiratory Rate 16 Blood Pressure 122/62 Pulse Oximetry 96 96 Oxygen Delivery Nasal Cannula Oxygen Flow Rate 2 Fraction of Inspired Oxygen 04/20/23 13:00 04/20/23 13:10 04/20/23 16:31 Temperature 97.3 F L Pulse Rate 81 83 100 Respiratory Rate 18 18 16 Blood Pressure 111/62 Pulse Oximetry 97 Oxygen Delivery Oxygen Flow Rate Fraction of Inspired Oxygen 04/20/23 16:00 04/20/23 19:24 04/20/23 20:21 Temperature 97.8 F Pulse Rate 96 105 H 80 Respiratory Rate 18 18 Blood Pressure 110/61 Pulse Oximetry 96 Oxygen Delivery Oxygen Flow Rate Fraction of Inspired Oxygen 04/20/23 20:36 04/20/23 23:35 04/21/23 00:00 Temperature 99.6 F Pulse Rate 78 101 H 77 Respiratory Rate 20 19 18 Blood Pressure 118/86 Pulse Oximetry 98 93 Oxygen Delivery BiPAP Oxygen Flow Rate Fraction of Inspired Oxygen 04/21/23 02:01 04/21/23 02:04 04/20/23 20:00 Temperature Pulse Rate 75 110 H 110 H Respiratory Rate 18 22 H 22 H Blood Pressure Pulse Oximetry 97 97 Oxygen Delivery BiPAP BiPAP Oxygen Flow Rate Fraction of Inspired Oxygen 30 04/21/23 04:00 04/20/23 20:00 04/21/23 00:00 Temperature 97.9 F Pulse Rate 78 103 H 98 Respiratory Rate 18 Blood Pressure 116/59 L Pulse Oximetry 93 Oxygen Delivery Oxygen Flow Rate Fraction of Inspired Oxygen 04/21/23 04:00 04/21/23 08:33 04/21/23 08:38 Temperature Pulse Rate 111 H 115 H 120 H Respiratory Rate Blood Pressure 103/53 L Pulse Oximetry 96 Oxygen Delivery Oxygen Flow Rate Fraction of Inspired Oxygen 04/21/23 08:44 04/21/23 08:44 04/21/23 09:00 Temperature Pulse Rate 121 H 119 H Respiratory Rate 22 H 22 H Blood Pressure Pulse Oximetry 99 Oxygen Delivery Nasal Cannula Oxygen Flow Rate 2 Fraction of Inspired Oxygen Intake/Output Intake/Output: Intake & Output 04/18/23 04/19/23 04/20/23 04/21/23 23:59 23:59 23:59 23:59 Intake Total 1780 3575 2460 Output Total 4562 367 7231 1050 Balance 530 3175 560 -1050 Meds/Results Medications: Active Medications Generic Name Dose Route Start Last Admin Trade Name Freq PRN Reason Stop Dose Admin Acetaminophen 650 mg 04/13/23 18:17 04/21/23 06:17 Acetaminophen 325 Mg Tablet PO 650 mg Q4H PRN Administration Mild Pain (1-
[2023-04-21 09:38] LABS: Basophils Percent Auto 0.5 % (0.2-1.2); Eosinophils Absolute Auto 0.3 K/mm3 (0-0.3); Eosinophils Percent Auto 4.1 % (0-4.4); Hematocrit 24.9 % (37.0-47.0); Hemoglobin 7.3 g/dL (12.0-15.0); Immature Granulocyte Absolute 0.06 K/mm3 (0.00-0.031); Immature Granulocyte Percent A 0.9 % (0-0.5); Lymphocytes Absolute Auto 0.53 K/mm3 (0.9-3.2); Lymphocytes Percent Auto 8.3 % (18.3-44.2); Mean Corpuscular HGB Conc 29.3 g/dl (32-36); Mean Corpuscular Hemoglobin 31.9 pg (26-34); Mean Corpuscular Volume 108.7 fl (80-100); Mean Platelet Volume 10.5 fl (7.4-10.4); Monocytes Absolute Auto 0.4 K/mm3 (0.1-0.6); Monocytes Percent Auto 6.9 % (2.6-8.5); Neutrophils Absolute Auto 5.1 K/mm3 (1.3-6.7); Neutrophils Percent Auto 79.3 % (45.5-73.1); Platelet Count Result 192 k/mm3 (150-375); Red Blood Count 2.29 M/mm3 (4.2-5.4); Red Cell Distribution Width 14.6 % (11.5-14.5); White Blood Count 6.4 K/mm3 (4.5-10.0)
[2023-04-21 09:49] LABS: Alanine Aminotransferase 34 U/L (6-35); Albumin Level 3.2 g/dL (3.5-5.1); Alkaline Phosphatase 67 U/L (38-126); Anion Gap 10 mmol/L (8-16); Aspartate Amino Transferase 25 U/L (14-36); Bilirubin,Total 0.5 mg/dL (0.2-1.3); Blood Urea Nitrogen 67 mg/dL (7-17); Calcium 8.5 mg/dL (8.4-10.2); Carbon Dioxide 26 mmol/L (22-30); Chloride 103 mmol/L (98-107); Estimated CRCL calculation 31 ml/min; Estimated Glomerular Filt Rate 22; Glucose 183 mg/dL (65-110); Potassium 4.3 mmol/L (3.4-5.0); Sodium 139 mmol/L (137-145)
[2023-04-21 09:56] LABS: Anisocytosis 2+ (NORMAL); Hypochromasia 1+ (NORMAL); Platelet Estimate Adequate (Adequate); Schistocytes None Seen (NORMAL)
[2023-04-21 10:15] LABS: Iron 82 ug/dL (37-170)
[2023-04-21 10:24] LABS: Percent Iron Saturation 30 % (20-50)
[2023-04-21 10:54] LABS: Folic Acid 13.7 ng/mL (2.76->20)
--- NOTE | 2023-04-21 12:01 | P.PNNP_ITS ---
Progress Note: A&P Assessment and Plan (1) Acute kidney injury: Code(s): N17.9 - Acute kidney failure, unspecified Status: Acute Assessment and Plan: * noted worsening on 04/15/23 during hospitalization * creatinine seemed to peak at 2.6mg/dl -- down to 2.2mg/dl * new baseline creatinine? * check urine studies again * suspicion falls on hypotension and possible overdiuresis * on low dose IVFs * follow trend of repeat labs and UOP (2) Stage 3b chronic kidney disease: Code(s): N18.32 - Chronic kidney disease, stage 3b Status: Chronic Assessment and Plan: * baseline creatinine runs around 1.1 - 1.6mg/dl since 2019 (if not longer) * felt to be secondary to diabetes, hypertension, vascular disease, ANNIE/pulmonary HTN, chronic CHF + diuretic therapy, and age-related change (3) Status post fall: Code(s): Z91.81 - History of falling Status: Acute Assessment and Plan: * with noted injury of facial contusions and right foot pain * no evidence of orbital fracture by imaging * no evidence of RLE fracture by x-ray imaging to date -- however, unable to bear weight on right foot * MRI of right foot results noted (see #4) * PT/OT as tolerated * may need placement on discharge (4) Ankle fracture: Qualifiers: Encounter type: initial encounter Fracture type: closed Laterality: right Qualified Code(s): S82.891A - Other fracture of right lower leg, initial encounter for closed fracture Code(s): S82.899A - Other fracture of unspecified lower leg, initial encounter for closed fracture Status: Acute Assessment and Plan: * as noted by right ankle MRI * Orthopedic following * patient has opted for non-surgical treatment (5) History of chronic CHF: Code(s): Z86.79 - Personal history of other diseases of the circulatory system Status: Acute Assessment and Plan: * diastolic in nature -- preserved EF by last Echo * appears compensated at this time * concern that overdiuresis may to blame for ABDIEL/ARF * diuretics on hold currently * follow volume and respiratory status (6) Anemia: Qualifiers: Anemia type: due to chronic kidney disease Code(s): D64.9 - Anemia, unspecified Status: Acute Assessment and Plan: * due to ABDIEL, CKD, and iron deficiency * on oral iron and IV venofer * s/p Epogen dosing * Hematology following * folllow trend of H/H (7) Essential (primary) hypertension: Code(s): I10 - Essential (primary) hypertension Status: Chronic Assessment and Plan: * still a bit on the soft side * off hydralazine * on metoprolol + diltiazem (but this is more for rate control of her atrial fibrillation) * follow trend of hemodynamics (8) Chronic respiratory failure with hypoxia and hypercapnia: Code(s): J96.11 - Chronic respiratory failure with hypoxia; J96.12 - Chronic respiratory failure with hypercapnia Status: Acute Assessment and Plan: * secondary to ANNIE and OHS * PFTs on 01/13/23 did not demonstrate obstruction but severe restrictive abnormality along with decreased diffusing capacity * supposed to be using oxygen at home intermittently (per Pulmonary) * wean oxygen as tolerated but may need this on discharge as well (9) Type 2 diabetes mellitus with diabetic neuropathy: Qualifiers: Diabetes mellitus adjunct faculty for medical terminology insulin use: with adjunct faculty for medical terminology use Qualified Code(s): E11.40 - Type 2 diabetes mellitus with diabetic neuropathy, unspecified; Z79.4 - L
--- NOTE | 2023-04-21 12:01 | PM.PNNEP ---
Progress Note: A&P Assessment and Plan (1) Acute kidney injury: Code(s): N17.9 - Acute kidney failure, unspecified Status: Acute Assessment and Plan: noted worsening on 04/15/23 during hospitalization creatinine seemed to peak at 2.6mg/dl -- down to 2.2mg/dl new baseline creatinine? check urine studies again suspicion falls on hypotension and possible overdiuresis on low dose IVFs follow trend of repeat labs and UOP (2) Stage 3b chronic kidney disease: Code(s): N18.32 - Chronic kidney disease, stage 3b Status: Chronic Assessment and Plan: baseline creatinine runs around 1.1 - 1.6mg/dl since 2019 (if not longer) felt to be secondary to diabetes, hypertension, vascular disease, ANNIE/pulmonary HTN, chronic CHF + diuretic therapy, and age-related change (3) Status post fall: Code(s): Z91.81 - History of falling Status: Acute Assessment and Plan: with noted injury of facial contusions and right foot pain no evidence of orbital fracture by imaging no evidence of RLE fracture by x-ray imaging to date -- however, unable to bear weight on right foot MRI of right foot results noted (see #4) PT/OT as tolerated may need placement on discharge (4) Ankle fracture: Qualifiers: Encounter type: initial encounter Fracture type: closed Laterality: right Qualified Code(s): S82.891A - Other fracture of right lower leg, initial encounter for closed fracture Code(s): S82.899A - Other fracture of unspecified lower leg, initial encounter for closed fracture Status: Acute Assessment and Plan: as noted by right ankle MRI Orthopedic following patient has opted for non-surgical treatment (5) History of chronic CHF: Code(s): Z86.79 - Personal history of other diseases of the circulatory system Status: Acute Assessment and Plan: diastolic in nature -- preserved EF by last Echo appears compensated at this time concern that overdiuresis may to blame for ABDIEL/ARF diuretics on hold currently follow volume and respiratory status (6) Anemia: Qualifiers: Anemia type: due to chronic kidney disease Code(s): D64.9 - Anemia, unspecified Status: Acute Assessment and Plan: due to ABDIEL, CKD, and iron deficiency on oral iron and IV venofer s/p Epogen dosing Hematology following folllow trend of H/H (7) Essential (primary) hypertension: Code(s): I10 - Essential (primary) hypertension Status: Chronic Assessment and Plan: still a bit on the soft side off hydralazine on metoprolol + diltiazem (but this is more for rate control of her atrial fibrillation) follow trend of hemodynamics (8) Chronic respiratory failure with hypoxia and hypercapnia: Code(s): J96.11 - Chronic respiratory failure with hypoxia; J96.12 - Chronic respiratory failure with hypercapnia Status: Acute Assessment and Plan: secondary to ANNIE and OHS PFTs on 01/13/23 did not demonstrate obstruction but severe restrictive abnormality along with decreased diffusing capacity supposed to be using oxygen at home intermittently (per Pulmonary) wean oxygen as tolerated but may need this on discharge as well (9) Type 2 diabetes mellitus with diabetic neuropathy: Qualifiers: Diabetes mellitus senior care insulin use: 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 Subjective Date/time seen: 04/21/23 12:01 Interval history: Follow-up for acute kidney injury/acute renal failure on chronic kidney disease. Creatinine/renal function remains the sa
[2023-04-21 12:05] LABS: Glucose Point of Care 176 mg/dl (65-105)
--- NOTE | 2023-04-21 12:43 | P.PNIM_ITS ---
Progress Note: A&P Assessment and Plan (1) Altered mental status: Qualifiers: Altered mental status type: disorientation Qualified Code(s): R41.0 - Disorientation, unspecified Code(s): R41.82 - Altered mental status, unspecified Status: Acute (2) Multiple contusions: Code(s): T07.XXXA - Unspecified multiple injuries, initial encounter Status: Acute (3) Ambulatory dysfunction: Code(s): R26.2 - Difficulty in walking, not elsewhere classified Status: Acute (4) CKD (chronic kidney disease) stage 3, GFR 30-59 ml/min: Code(s): N18.30 - Chronic kidney disease, stage 3 unspecified Status: Acute (5) Chronic anticoagulation: Code(s): 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 Status: Acute (6) Ankle fracture: Qualifiers: Encounter type: initial encounter Fracture type: closed Laterality: right Qualified Code(s): S82.891A - Other fracture of right lower leg, initial encounter for closed fracture Code(s): S82.899A - Other fracture of unspecified lower leg, initial encounter for closed fracture Status: Acute (7) Lumbar stenosis without neurogenic claudication: Code(s): M48.061 - Spinal stenosis, lumbar region without neurogenic claudication Status: Chronic (8) Morbid obesity: Onset Date: ~2009 Code(s): E66.01 - Morbid (severe) obesity due to excess calories Status: Chronic Plan 73 y/o F presents here with R foot pain and reduced mobility after a ground level fall with PMH of aortic stenosis s/p TAVR,?a fib on coumadin, external hemorrhoids, CKD stage 3, HFpEF, HTN, GAVE on EGD/gastritis, GERD, HLD, gout, ANNIE non compliant with CPAP, osteoporosis, peripheral neuropathy, diabetes, uterine cancer (s/p hysterectomy), and vitamin D deficiency. Awaiting nursing/rehab placement. 1) right ankle fracture: - patient is a confirmed right ankle fracture based on MRI - orthopedic consult given who evaluated the patient and gave surgical/nonsurgical options - patient in favor nonsurgical intervention at this time - Follow up closely as per Orthopedics for further recommendations - she would require to be repeated with the cam walker boot upon discharge - PT/OT evaluation - care coordination to assist with DC planning and procurement of cam walker boot 2) acute hypoxic hypercapnic respiratory failure 2/2 ANNIE/OHS/CHF - ANNIE OHS syndrome. PFT 01/13/23 did not demonstrate obstruction but severe restrictive abnormality along with decreased diffusing capacity. per pulm office reports she was supposed to be using o2 at home intermittently. - cont to wean off Oxygen as tolerated, keeping O2 sats between 90-94%. she may need this ongoing 3) HFpEF - compensated, in fact we may have diuresed too aggresively so on 04/17 d/c lasix. - pending echo. mention of tamponade on chest imaging. last echo 71% EF with indeterminate diastolic function in 10/19 - cont daily weights. fluid restriction held temporarily as her kidney function improved with fluid resuscitation. monitor this closely 4) hyperkalemia - mild, resolved after lasix administration 5) ABDIEL on CKD stage 3 - baseline CKD stage 3 w/ sCR 1.3-1.7. worsened after diuresis - now improving after gently fluids on 04/17. so on 04/18 we will continue that and trend bmp in morning. she did also have hypotensive episode on 04/15 when she was altered. - consult nephrology, appreciate their assistance _ Monitor labs closely for renal functions 6) severe macrocytic anemia -?reviewed notes from september 2022. she has elevated retic count. oncol
[2023-04-21] MEDS: SODIUM CHLORIDE 0.9% IV 1,000 ML 83 ML IV CONT (13:04)
[2023-04-21 17:22] LABS: Glucose Point of Care 150 mg/dl (65-105)
[2023-04-21] MEDS: ROSUVASTATIN 5 MG TABLET PO (21:02)
[2023-04-21] MEDS: LATANOPROST 0.005% OP SOLN 2.5 ML BTL 1 DROP EACH EYE (21:31)
[2023-04-21 21:34] LABS: Glucose Point of Care 176 mg/dl (65-105)
[2023-04-22] VITALS (19 sets, daily range): BP systolic 115–130; BP diastolic 64–74; PULSE 64–108; RESP 16–21; TEMP 36.2–36.7; O2SAT 90–98
[2023-04-22] MEDS: SODIUM CHLORIDE 0.9% IV 1,000 ML 83 ML IV CONT (01:07)
[2023-04-22] MEDS: ALBUTEROL SULFATE NEB 2.5 MG/3 ML INH INHALATION ×4 (01:13→20:33)
[2023-04-22] MEDS: IPRATROPIUM BR 0.02% INH SOLN 0.5 MG/2.5 ML VIAL INHALATION ×4 (01:13→20:33)
[2023-04-22 06:05] LABS: Basophils Percent Auto 0.5 % (0.2-1.2); Eosinophils Absolute Auto 0.4 K/mm3 (0-0.3); Eosinophils Percent Auto 6.3 % (0-4.4); Hematocrit 26.3 % (37.0-47.0); Hemoglobin 7.5 g/dL (12.0-15.0); Immature Granulocyte Absolute 0.03 K/mm3 (0.00-0.031); Immature Granulocyte Percent A 0.5 % (0-0.5); Lymphocytes Absolute Auto 0.54 K/mm3 (0.9-3.2); Lymphocytes Percent Auto 9.7 % (18.3-44.2); Mean Corpuscular HGB Conc 28.5 g/dl (32-36); Mean Corpuscular Hemoglobin 31.5 pg (26-34); Mean Corpuscular Volume 110.5 fl (80-100); Mean Platelet Volume 10.4 fl (7.4-10.4); Monocytes Absolute Auto 0.6 K/mm3 (0.1-0.6); Monocytes Percent Auto 10.2 % (2.6-8.5); Neutrophils Absolute Auto 4.1 K/mm3 (1.3-6.7); Neutrophils Percent Auto 72.8 % (45.5-73.1); Platelet Count Result 221 k/mm3 (150-375); Red Blood Count 2.38 M/mm3 (4.2-5.4); Red Cell Distribution Width 14.9 % (11.5-14.5); White Blood Count 5.6 K/mm3 (4.5-10.0)
[2023-04-22 06:16] LABS: Lactic Acid Reflex 0.7 mmol/L (0.7-2.0)
[2023-04-22 06:18] LABS: Alanine Aminotransferase 29 U/L (6-35); Albumin Level 3.2 g/dL (3.5-5.1); Alkaline Phosphatase 65 U/L (38-126); Anion Gap 10 mmol/L (8-16); Aspartate Amino Transferase 21 U/L (14-36); Bilirubin,Total 0.5 mg/dL (0.2-1.3); Blood Urea Nitrogen 71 mg/dL (7-17); Calcium 8.5 mg/dL (8.4-10.2); Carbon Dioxide 24 mmol/L (22-30); Chloride 104 mmol/L (98-107); Estimated CRCL calculation 31 ml/min; Estimated Glomerular Filt Rate 22; Glucose 138 mg/dL (65-110); Potassium 4.1 mmol/L (3.4-5.0); Sodium 138 mmol/L (137-145)
[2023-04-22] MEDS: FLUTICASONE PROP 110 MCG INHALER 12 GM (*SP) 1 PUFF INHALATION ×2 (08:27→20:33)
[2023-04-22 08:30] LABS: Glucose Point of Care 137 mg/dl (65-105)
[2023-04-22] MEDS: FERROUS SULFATE 325 MG TABLET DR PO ×3 (08:35→17:10)
[2023-04-22] MEDS: GABAPENTIN 300 MG CAPSULE 600 MG PO ×3 (08:35→17:10)
[2023-04-22] MEDS: dilTIAZem HCL CD 120 MG CAP.24HR PO (08:36)
[2023-04-22] MEDS: LORATADINE 10 MG TABLET PO (08:36)
[2023-04-22] MEDS: INSULIN GLARGINE (*BKC) 100 UNITS/ML 35 UNITS SUB-Q (08:36)
[2023-04-22] MEDS: CYANOCOBALAMIN 1,000 MCG TABLET 1000 MCG PO (08:36)
[2023-04-22] MEDS: MONTELUKAST SODIUM 10 MG TABLET PO (08:36)
[2023-04-22] MEDS: TOLNAFTATE 1% POWDER 45 GM BTL 1 APPLIC TOPICAL ×2 (08:42→20:27)
[2023-04-22] MEDS: METOPROLOL TARTRATE 25 MG TABLET PO ×2 (08:42→20:27)
[2023-04-22] MEDS: TRIAMCINOLONE ACET 0.1% OINT 15 GM TUBE 1 APPLIC TOPICAL ×2 (08:43→17:10)
[2023-04-22] MEDS: ACETAMINOPHEN 325 MG TABLET 650 MG PO (08:47)
--- NOTE | 2023-04-22 09:40 | PCOTNOTE ---
Patient unavailable to be seen at this time. Patient having a kidney ultrasound. Will check back later.
--- NOTE | 2023-04-22 10:46 | PM.PNNEP ---
Progress Note: A&P Assessment and Plan (1) Acute kidney injury: Code(s): N17.9 - Acute kidney failure, unspecified Status: Acute Assessment and Plan: noted worsening on 04/15/23 during hospitalization creatinine seemed to peak at 2.6mg/dl -- down to 2.2mg/dl forthe last several days new baseline creatinine? check urine studies again suspicion falls on hypotension and possible overdiuresis was low dose IVFs but given recent CXR findings, will d/c CVF follow trend of repeat labs and UOP (2) Stage 3b chronic kidney disease: Code(s): N18.32 - Chronic kidney disease, stage 3b Status: Chronic Assessment and Plan: baseline creatinine runs around 1.1 - 1.6mg/dl since 2019 (if not longer) felt to be secondary to diabetes, hypertension, vascular disease, ANNIE/pulmonary HTN, chronic CHF + diuretic therapy, and age-related change (3) Status post fall: Code(s): Z91.81 - History of falling Status: Acute Assessment and Plan: with noted injury of facial contusions and right foot pain no evidence of orbital fracture by imaging no evidence of RLE fracture by x-ray imaging to date -- however, unable to bear weight on right foot MRI of right foot results noted (see #4) PT/OT as tolerated may need placement on discharge (4) Ankle fracture: Qualifiers: Encounter type: initial encounter Fracture type: closed Laterality: right Qualified Code(s): S82.891A - Other fracture of right lower leg, initial encounter for closed fracture Code(s): S82.899A - Other fracture of unspecified lower leg, initial encounter for closed fracture Status: Acute Assessment and Plan: as noted by right ankle MRI Orthopedic following patient has opted for non-surgical treatment (5) History of chronic CHF: Code(s): Z86.79 - Personal history of other diseases of the circulatory system Status: Acute Assessment and Plan: diastolic in nature -- preserved EF by last Echo appears compensated at this time concern that overdiuresis may to blame for ABDIEL/ARF diuretics on hold currently - may need to resume soon follow volume and respiratory status (6) Anemia: Qualifiers: Anemia type: due to chronic kidney disease Code(s): D64.9 - Anemia, unspecified Status: Acute Assessment and Plan: due to ABDIEL, CKD, and iron deficiency on oral iron and IV venofer s/p Epogen dosing Hematology following folllow trend of H/H (7) Essential (primary) hypertension: Code(s): I10 - Essential (primary) hypertension Status: Chronic Assessment and Plan: still a bit on the soft side off hydralazine on metoprolol + diltiazem (but this is more for rate control of her atrial fibrillation) follow trend of hemodynamics (8) Chronic respiratory failure with hypoxia and hypercapnia: Code(s): J96.11 - Chronic respiratory failure with hypoxia; J96.12 - Chronic respiratory failure with hypercapnia Status: Acute Assessment and Plan: secondary to ANNIE and OHS PFTs on 01/13/23 did not demonstrate obstruction but severe restrictive abnormality along with decreased diffusing capacity supposed to be using oxygen at home intermittently (per Pulmonary) wean oxygen as tolerated but may need this on discharge as well (9) Type 2 diabetes mellitus with diabetic neuropathy: Qualifiers: Diabetes mellitus usp insulin use: 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 Subjective Date/time seen: 04/22/23 10:46 Interval history: Follow-up for acute kidney i
--- NOTE | 2023-04-22 10:46 | P.PNNP_ITS ---
Progress Note: A&P Assessment and Plan (1) Acute kidney injury: Code(s): N17.9 - Acute kidney failure, unspecified Status: Acute Assessment and Plan: * noted worsening on 04/15/23 during hospitalization * creatinine seemed to peak at 2.6mg/dl -- down to 2.2mg/dl forthe last several days * new baseline creatinine? * check urine studies again * suspicion falls on hypotension and possible overdiuresis * was low dose IVFs but given recent CXR findings, will d/c CVF * follow trend of repeat labs and UOP (2) Stage 3b chronic kidney disease: Code(s): N18.32 - Chronic kidney disease, stage 3b Status: Chronic Assessment and Plan: * baseline creatinine runs around 1.1 - 1.6mg/dl since 2019 (if not longer) * felt to be secondary to diabetes, hypertension, vascular disease, ANNIE/pulmonary HTN, chronic CHF + diuretic therapy, and age-related change (3) Status post fall: Code(s): Z91.81 - History of falling Status: Acute Assessment and Plan: * with noted injury of facial contusions and right foot pain * no evidence of orbital fracture by imaging * no evidence of RLE fracture by x-ray imaging to date -- however, unable to bear weight on right foot * MRI of right foot results noted (see #4) * PT/OT as tolerated * may need placement on discharge (4) Ankle fracture: Qualifiers: Encounter type: initial encounter Fracture type: closed Laterality: right Qualified Code(s): S82.891A - Other fracture of right lower leg, initial encounter for closed fracture Code(s): S82.899A - Other fracture of unspecified lower leg, initial encounter for closed fracture Status: Acute Assessment and Plan: * as noted by right ankle MRI * Orthopedic following * patient has opted for non-surgical treatment (5) History of chronic CHF: Code(s): Z86.79 - Personal history of other diseases of the circulatory system Status: Acute Assessment and Plan: * diastolic in nature -- preserved EF by last Echo * appears compensated at this time * concern that overdiuresis may to blame for ABDIEL/ARF * diuretics on hold currently - may need to resume soon * follow volume and respiratory status (6) Anemia: Qualifiers: Anemia type: due to chronic kidney disease Code(s): D64.9 - Anemia, unspecified Status: Acute Assessment and Plan: * due to ABDIEL, CKD, and iron deficiency * on oral iron and IV venofer * s/p Epogen dosing * Hematology following * folllow trend of H/H (7) Essential (primary) hypertension: Code(s): I10 - Essential (primary) hypertension Status: Chronic Assessment and Plan: * still a bit on the soft side * off hydralazine * on metoprolol + diltiazem (but this is more for rate control of her atrial fibrillation) * follow trend of hemodynamics (8) Chronic respiratory failure with hypoxia and hypercapnia: Code(s): J96.11 - Chronic respiratory failure with hypoxia; J96.12 - Chronic respiratory failure with hypercapnia Status: Acute Assessment and Plan: * secondary to ANNIE and OHS * PFTs on 01/13/23 did not demonstrate obstruction but severe restrictive abnormality along with decreased diffusing capacity * supposed to be using oxygen at home intermittently (per Pulmonary) * wean oxygen as tolerated but may need this on discharge as well (9) Type 2 diabetes mellitus with diabetic neuropathy: Qualifiers: Diabetes mellitus snf insulin use: 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
--- NOTE | 2023-04-22 11:50 | PCNWS ---
Weekly nutritional screen. Patient is tolerating current diet with adequate intake. No weight loss reported. No nutritional needs at this time.
[2023-04-22] MEDS: polyethylene glycoL 3350 17 GM POWD.PACK PO (12:42)
--- NOTE | 2023-04-22 12:48 | PC.NURSE ---
Pt blood sugar was 167 at 12:30pm. Blood sugar not uploading to [employer].
[2023-04-22 12:59] LABS: Glucose Point of Care 167 mg/dl (65-105)
--- NOTE | 2023-04-22 14:56 | PM.IMPN ---
Progress Note: A&P Assessment and Plan (1) Altered mental status: Qualifiers: Altered mental status type: disorientation Qualified Code(s): R41.0 - Disorientation, unspecified Code(s): R41.82 - Altered mental status, unspecified Status: Acute Assessment and Plan: resolved (2) Multiple contusions: Code(s): T07.XXXA - Unspecified multiple injuries, initial encounter Status: Acute (3) Ambulatory dysfunction: Code(s): R26.2 - Difficulty in walking, not elsewhere classified Status: Acute (4) CKD (chronic kidney disease) stage 3, GFR 30-59 ml/min: Code(s): N18.30 - Chronic kidney disease, stage 3 unspecified Status: Acute (5) Chronic anticoagulation: Code(s): 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 Status: Acute (6) Ankle fracture: Qualifiers: Encounter type: initial encounter Fracture type: closed Laterality: right Qualified Code(s): S82.891A - Other fracture of right lower leg, initial encounter for closed fracture Code(s): S82.899A - Other fracture of unspecified lower leg, initial encounter for closed fracture Status: Acute (7) Lumbar stenosis without neurogenic claudication: Code(s): M48.061 - Spinal stenosis, lumbar region without neurogenic claudication Status: Chronic (8) Morbid obesity: Onset Date: ~2009 Code(s): E66.01 - Morbid (severe) obesity due to excess calories Status: Chronic Plan 73 y/o F presents here with R foot pain and reduced mobility after a ground level fall with PMH of aortic stenosis s/p TAVR,?a fib on coumadin, external hemorrhoids, CKD stage 3, HFpEF, HTN, GAVE on EGD/gastritis, GERD, HLD, gout, ANNIE non compliant with CPAP, osteoporosis, peripheral neuropathy, diabetes, uterine cancer (s/p hysterectomy), and vitamin D deficiency. Awaiting nursing/rehab placement. 1) right ankle fracture: - patient is a confirmed right ankle fracture based on MRI - patient in favor nonsurgical intervention at this time - Follow up closely as per Orthopedics for further recommendations - she would require to be repeated with the cam walker boot upon discharge - PT/OT evaluation - care coordination to assist with DC planning and procurement of cam walker boot ortho following and recommends non surgical intervention awaiting placement 2) acute hypoxic hypercapnic respiratory failure 2/2 ANNIE/OHS/CHF - ANNIE OHS syndrome. PFT 01/13/23 did not demonstrate obstruction but severe restrictive abnormality along with decreased diffusing capacity. per pulm office reports she was supposed to be using o2 at home intermittently. - cont to wean off Oxygen as tolerated, keeping O2 sats between 90-94%. she may need this ongoing 3) HFpEF - compensated, in fact we may have diuresed too aggresively so on 04/17 d/c lasix. - pending echo. mention of tamponade on chest imaging. last echo 71% EF with indeterminate diastolic function in 10/19 - cont daily weights. fluid restriction held temporarily as her kidney function improved with fluid resuscitation. monitor this closely - restarting lasix per nephrology 4) hyperkalemia - mild, resolved after lasix administration 5) ABDIEL on CKD stage 3 - baseline CKD stage 3 w/ sCR 1.3-1.7. worsened after diuresis - now improving after gently fluids on 04/17. so on 04/18 we will continue that and trend bmp in morning. she did also have hypotensive episode on 04/15 when she was altered. Nephrology on board and considering if 2.2 creatinine is the new normal 6) severe macrocytic anemia -?reviewed notes from september 2022. she has elevated retic count. oncology consulted. she had been following as outpatient and had bone marrow biopsy 10/14/22. appreciate their recs. procrit being given so this should help. - so far now evidence of bleeding aside from her contusions. she had EGD and and colonoscopy in september 2022 and required transfusion. mild gastritis, diverticulos
[2023-04-22 17:04] LABS: Glucose Point of Care 136 mg/dl (65-105)
[2023-04-22 17:29] LABS: Appearance Urine Cloudy (Clear); Bacteria Urine 4+ /hpf; Bilirubin Urine Negative (Negative); Blood Urine 3+ (Negative); Color Urine Yellow (Yellow); Glucose Urine UA Negative (Negative); Ketones Urine Negative (Negative); Leukocyte Esterase Ur 3+ LEU/UL (Negative); Nitrate Urine Negative (Negative); Protein Urine 2+ mg/dL (Negative); Squamous Epithelial Cell Urine None seen /hpf (Few); Urobilinogen Urine 0.2 mg/dL (<2.0); WBC Urine >100 /hpf; pH Urine 5.5 (5.0-9.0)
[2023-04-22 17:35] LABS: Add Urine Microscopic? YES
[2023-04-22 17:38] LABS: Creatinine Urine 58.3 mg/dL; Total Protein Urine Random 75 mg/dL; Ur Ttl Prot Creatinine Ratio 1.29 mg/mg (0-0.20); Urea Random Urine 489 MG/DL
[2023-04-22 17:46] LABS: Sodium Urine Random 16 meq/L
[2023-04-22 18:59] LABS: Eosinophil Urine None Seen % (None Seen); Urine Eos QC 2nd Tech Confirmed
[2023-04-22] MEDS: ROSUVASTATIN 5 MG TABLET PO (20:27)
[2023-04-22] MEDS: LATANOPROST 0.005% OP SOLN 2.5 ML BTL 1 DROP EACH EYE (20:28)
[2023-04-22 22:33] LABS: Glucose Point of Care 158 mg/dl (65-105)
[2023-04-23] VITALS (24 sets, daily range): BP systolic 99–122; BP diastolic 48–76; PULSE 74–118; RESP 16–23; TEMP 36.2–37.1; O2SAT 92–100
[2023-04-23] MEDS: IPRATROPIUM BR 0.02% INH SOLN 0.5 MG/2.5 ML VIAL INHALATION ×4 (01:52→21:30)
[2023-04-23] MEDS: ALBUTEROL SULFATE NEB 2.5 MG/3 ML INH INHALATION ×4 (01:52→21:30)
[2023-04-23 06:12] LABS: Basophils Percent Auto 0.5 % (0.2-1.2); Eosinophils Absolute Auto 0.3 K/mm3 (0-0.3); Hemoglobin 7.1 g/dL (12.0-15.0); Immature Granulocyte Absolute 0.03 K/mm3 (0.00-0.031); Immature Granulocyte Percent A 0.5 % (0-0.5); Lymphocytes Absolute Auto 0.66 K/mm3 (0.9-3.2); Lymphocytes Percent Auto 10.6 % (18.3-44.2); Mean Corpuscular HGB Conc 28.4 g/dl (32-36); Mean Corpuscular Hemoglobin 31.1 pg (26-34); Mean Corpuscular Volume 109.6 fl (80-100); Mean Platelet Volume 10.1 fl (7.4-10.4); Monocytes Absolute Auto 0.6 K/mm3 (0.1-0.6); Monocytes Percent Auto 9.3 % (2.6-8.5); Neutrophils Absolute Auto 4.6 K/mm3 (1.3-6.7); Neutrophils Percent Auto 74.1 % (45.5-73.1); Platelet Count Result 233 k/mm3 (150-375); Red Blood Count 2.28 M/mm3 (4.2-5.4); White Blood Count 6.2 K/mm3 (4.5-10.0)
[2023-04-23 06:23] LABS: Alanine Aminotransferase 23 U/L (6-35); Albumin Level 3.1 g/dL (3.5-5.1); Alkaline Phosphatase 64 U/L (38-126); Anion Gap 9 mmol/L (8-16); Aspartate Amino Transferase 20 U/L (14-36); Bilirubin,Total 0.4 mg/dL (0.2-1.3); Blood Urea Nitrogen 68 mg/dL (7-17); Calcium 8.6 mg/dL (8.4-10.2); Carbon Dioxide 23 mmol/L (22-30); Chloride 108 mmol/L (98-107); Creatine Kinase 69 U/L (30-135); Estimated CRCL calculation 35 ml/min; Estimated Glomerular Filt Rate 24; Glucose 108 mg/dL (65-110); Magnesium 2.5 mg/dL (1.6-2.3); Phosphorus 4.3 mg/dL (2.5-4.5); Potassium 4.3 mmol/L (3.4-5.0); Sodium 140 mmol/L (137-145)
[2023-04-23 06:44] LABS: Anisocytosis 1+ (NORMAL); Hypochromasia 2+ (NORMAL); Macrocytosis 1+ (NORMAL); Platelet Estimate Adequate (Adequate)
[2023-04-23 06:45] LABS: Schistocytes None Seen (NORMAL)
[2023-04-23] MEDS: FLUTICASONE PROP 110 MCG INHALER 12 GM (*SP) 1 PUFF INHALATION ×2 (07:58→21:30)
[2023-04-23 08:28] LABS: Glucose Point of Care 96 mg/dl (65-105)
[2023-04-23] MEDS: CYANOCOBALAMIN 1,000 MCG TABLET 1000 MCG PO (09:09)
[2023-04-23] MEDS: dilTIAZem HCL CD 120 MG CAP.24HR PO (09:09)
[2023-04-23] MEDS: GABAPENTIN 300 MG CAPSULE 600 MG PO ×3 (09:11→17:52)
[2023-04-23] MEDS: FERROUS SULFATE 325 MG TABLET DR PO ×3 (09:11→17:53)
[2023-04-23] MEDS: LORATADINE 10 MG TABLET PO (09:12)
[2023-04-23] MEDS: METOPROLOL TARTRATE 25 MG TABLET PO ×2 (09:12→20:11)
[2023-04-23] MEDS: TOLNAFTATE 1% POWDER 45 GM BTL 1 APPLIC TOPICAL ×2 (09:13→20:11)
[2023-04-23] MEDS: MONTELUKAST SODIUM 10 MG TABLET PO (09:13)
[2023-04-23] MEDS: TRIAMCINOLONE ACET 0.1% OINT 15 GM TUBE 1 APPLIC TOPICAL ×2 (09:14→17:53)
[2023-04-23] MEDS: polyethylene glycoL 3350 17 GM POWD.PACK PO (09:14)
[2023-04-23 11:51] LABS: Glucose Point of Care 154 mg/dl (65-105)
[2023-04-23] MEDS: ACETAMINOPHEN 325 MG TABLET 650 MG PO ×2 (12:48→20:18)
--- NOTE | 2023-04-23 13:13 | PCOTNOTE ---
Attempted to see for OT treatment this afternoon. Per RN patient needing bipap at this time. Will continue to attempt.
--- NOTE | 2023-04-23 14:22 | P.PNNP_ITS ---
Progress Note: A&P Assessment and Plan (1) Acute kidney injury: Code(s): N17.9 - Acute kidney failure, unspecified Status: Acute Assessment and Plan: * noted worsening on 04/15/23 during hospitalization * creatinine seemed to peak at 2.6mg/dl -- down to 2.2mg/dl until today down to 2.0. * Her former baseline was 1.2-1.5. * Hopefully will continue to wonder down there. * Her urine sodium is low. * She is eating well so I do not think we need to give her IV fluids , especially since her creatinine fell a little bit. * Hold off on diuretics. Hold off on IV fluids. * Repeat labs in the morning. (2) Stage 3b chronic kidney disease: Code(s): N18.32 - Chronic kidney disease, stage 3b Status: Chronic Assessment and Plan: * baseline creatinine runs around 1.1 - 1.6mg/dl since 2019 (if not longer) * felt to be secondary to diabetes, hypertension, vascular disease, ANNIE/pulmonary HTN, chronic CHF + diuretic therapy, and age-related change (3) Status post fall: Code(s): Z91.81 - History of falling Status: Acute Assessment and Plan: * with noted injury of facial contusions and right foot pain * no evidence of orbital fracture by imaging * no evidence of RLE fracture by x-ray imaging to date -- however, unable to bear weight on right foot * MRI of right foot results noted (see #4) * PT/OT as tolerated (4) Ankle fracture: Qualifiers: Encounter type: initial encounter Fracture type: closed Laterality: right Qualified Code(s): S82.891A - Other fracture of right lower leg, initial encounter for closed fracture Code(s): S82.899A - Other fracture of unspecified lower leg, initial encounter for closed fracture Status: Acute Assessment and Plan: * as noted by right ankle MRI * Orthopedic following * patient has opted for non-surgical treatment (5) History of chronic CHF: Code(s): Z86.79 - Personal history of other diseases of the circulatory system Status: Acute Assessment and Plan: * diastolic in nature -- preserved EF by last Echo * appears compensated at this time * Continue holding diuretics. (6) Anemia: Qualifiers: Anemia type: due to chronic kidney disease Code(s): D64.9 - Anemia, unspecified Status: Acute Assessment and Plan: * due to ABDIEL, CKD, and iron deficiency * on oral iron and IV venofer * s/p Epogen dosing * Latest T sat 30. * Hematology following (7) Essential (primary) hypertension: Code(s): I10 - Essential (primary) hypertension Status: Chronic Assessment and Plan: * still a bit on the soft side * off hydralazine * on metoprolol + diltiazem (but this is more for rate control of her atrial fibrillation) * follow trend of hemodynamics (8) Chronic respiratory failure with hypoxia and hypercapnia: Code(s): J96.11 - Chronic respiratory failure with hypoxia; J96.12 - Chronic respiratory failure with hypercapnia Status: Acute Assessment and Plan: * secondary to ANNIE and OHS * PFTs on 01/13/23 did not demonstrate obstruction but severe restrictive abnormality along with decreased diffusing capacity * supposed to be using oxygen at home intermittently (per Pulmonary) (9) Type 2 diabetes mellitus with diabetic neuropathy: 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
--- NOTE | 2023-04-23 14:22 | PM.PNNEP ---
Progress Note: A&P Assessment and Plan (1) Acute kidney injury: Code(s): N17.9 - Acute kidney failure, unspecified Status: Acute Assessment and Plan: noted worsening on 04/15/23 during hospitalization creatinine seemed to peak at 2.6mg/dl -- down to 2.2mg/dl until today down to 2.0. Her former baseline was 1.2-1.5. Hopefully will continue to wonder down there. Her urine sodium is low. She is eating well so I do not think we need to give her IV fluids , especially since her creatinine fell a little bit. Hold off on diuretics. Hold off on IV fluids. Repeat labs in the morning. (2) Stage 3b chronic kidney disease: Code(s): N18.32 - Chronic kidney disease, stage 3b Status: Chronic Assessment and Plan: baseline creatinine runs around 1.1 - 1.6mg/dl since 2019 (if not longer) felt to be secondary to diabetes, hypertension, vascular disease, ANNIE/pulmonary HTN, chronic CHF + diuretic therapy, and age-related change (3) Status post fall: Code(s): Z91.81 - History of falling Status: Acute Assessment and Plan: with noted injury of facial contusions and right foot pain no evidence of orbital fracture by imaging no evidence of RLE fracture by x-ray imaging to date -- however, unable to bear weight on right foot MRI of right foot results noted (see #4) PT/OT as tolerated (4) Ankle fracture: Qualifiers: Encounter type: initial encounter Fracture type: closed Laterality: right Qualified Code(s): S82.891A - Other fracture of right lower leg, initial encounter for closed fracture Code(s): S82.899A - Other fracture of unspecified lower leg, initial encounter for closed fracture Status: Acute Assessment and Plan: as noted by right ankle MRI Orthopedic following patient has opted for non-surgical treatment (5) History of chronic CHF: Code(s): Z86.79 - Personal history of other diseases of the circulatory system Status: Acute Assessment and Plan: diastolic in nature -- preserved EF by last Echo appears compensated at this time Continue holding diuretics. (6) Anemia: Qualifiers: Anemia type: due to chronic kidney disease Code(s): D64.9 - Anemia, unspecified Status: Acute Assessment and Plan: due to ABDIEL, CKD, and iron deficiency on oral iron and IV venofer s/p Epogen dosing Latest T sat 30. Hematology following (7) Essential (primary) hypertension: Code(s): I10 - Essential (primary) hypertension Status: Chronic Assessment and Plan: still a bit on the soft side off hydralazine on metoprolol + diltiazem (but this is more for rate control of her atrial fibrillation) follow trend of hemodynamics (8) Chronic respiratory failure with hypoxia and hypercapnia: Code(s): J96.11 - Chronic respiratory failure with hypoxia; J96.12 - Chronic respiratory failure with hypercapnia Status: Acute Assessment and Plan: secondary to ANNIE and OHS PFTs on 01/13/23 did not demonstrate obstruction but severe restrictive abnormality along with decreased diffusing capacity supposed to be using oxygen at home intermittently (per Pulmonary) (9) Type 2 diabetes mellitus with diabetic neuropathy: Qualifiers: Diabetes mellitus correction insulin use: with correction use Qualified Code(s): E11.40 - Type 2 diabetes mellitus with diabetic neuropathy, unspecified; 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 Less short of breath. She uses a BiPAP machine for summer. Exam Narrative: General: Large female in [facility]
[2023-04-23 17:37] LABS: Glucose Point of Care 134 mg/dl (65-105)
[2023-04-23] MEDS: ROSUVASTATIN 5 MG TABLET PO (20:11)
[2023-04-23] MEDS: LATANOPROST 0.005% OP SOLN 2.5 ML BTL 1 DROP EACH EYE (20:12)
[2023-04-23 23:17] LABS: Glucose Point of Care 164 mg/dl (65-105)
[2023-04-24] VITALS (20 sets, daily range): BP systolic 114–138; BP diastolic 61–90; PULSE 63–111; RESP 16–20; TEMP 36.1–36.8; O2SAT 91–99
[2023-04-24] MEDS: IPRATROPIUM BR 0.02% INH SOLN 0.5 MG/2.5 ML VIAL INHALATION ×3 (02:10→20:15)
[2023-04-24] MEDS: ALBUTEROL SULFATE NEB 2.5 MG/3 ML INH INHALATION ×3 (02:10→20:15)
[2023-04-24 05:40] LABS: Basophils Percent Auto 0.6 % (0.2-1.2); Eosinophils Absolute Auto 0.3 K/mm3 (0-0.3); Eosinophils Percent Auto 6.5 % (0-4.4); Hematocrit 26.3 % (37.0-47.0); Hemoglobin 7.4 g/dL (12.0-15.0); Immature Granulocyte Absolute 0.03 K/mm3 (0.00-0.031); Immature Granulocyte Percent A 0.6 % (0-0.5); Lymphocytes Absolute Auto 0.54 K/mm3 (0.9-3.2); Lymphocytes Percent Auto 10.3 % (18.3-44.2); Mean Corpuscular HGB Conc 28.1 g/dl (32-36); Mean Corpuscular Hemoglobin 31.2 pg (26-34); Monocytes Absolute Auto 0.5 K/mm3 (0.1-0.6); Monocytes Percent Auto 9.9 % (2.6-8.5); Neutrophils Absolute Auto 3.8 K/mm3 (1.3-6.7); Neutrophils Percent Auto 72.1 % (45.5-73.1); Platelet Count Result 239 k/mm3 (150-375); Red Blood Count 2.37 M/mm3 (4.2-5.4); Red Cell Distribution Width 15.3 % (11.5-14.5); White Blood Count 5.3 K/mm3 (4.5-10.0)
[2023-04-24] MEDS: ACETAMINOPHEN 325 MG TABLET 650 MG PO (05:42)
[2023-04-24 05:50] LABS: Alanine Aminotransferase 21 U/L (6-35); Albumin Level 3.1 g/dL (3.5-5.1); Alkaline Phosphatase 71 U/L (38-126); Anion Gap 6 mmol/L (8-16); Aspartate Amino Transferase 22 U/L (14-36); Bilirubin,Total 0.5 mg/dL (0.2-1.3); Blood Urea Nitrogen 66 mg/dL (7-17); Calcium 8.7 mg/dL (8.4-10.2); Carbon Dioxide 28 mmol/L (22-30); Chloride 107 mmol/L (98-107); Estimated CRCL calculation 35 ml/min; Estimated Glomerular Filt Rate 24; Glucose 132 mg/dL (65-110); Phosphorus 4.2 mg/dL (2.5-4.5); Potassium 4.5 mmol/L (3.4-5.0); Sodium 141 mmol/L (137-145)
[2023-04-24 06:18] LABS: Anisocytosis 1+ (NORMAL); Hypochromasia 1+ (NORMAL); Macrocytosis 1+ (NORMAL); Platelet Estimate Adequate (Adequate); Schistocytes None Seen (NORMAL)
[2023-04-24 08:00] LABS: Glucose Point of Care 144 mg/dl (65-105)
--- NOTE | 2023-04-24 08:19 | P.PNIM_ITS ---
Progress Note: A&P Assessment and Plan (1) Altered mental status: Qualifiers: Altered mental status type: disorientation Qualified Code(s): R41.0 - Disorientation, unspecified Code(s): R41.82 - Altered mental status, unspecified Status: Acute Assessment and Plan: resolved (2) Multiple contusions: Code(s): T07.XXXA - Unspecified multiple injuries, initial encounter Status: Acute (3) Ambulatory dysfunction: Code(s): R26.2 - Difficulty in walking, not elsewhere classified Status: Acute (4) CKD (chronic kidney disease) stage 3, GFR 30-59 ml/min: Code(s): N18.30 - Chronic kidney disease, stage 3 unspecified Status: Acute (5) Chronic anticoagulation: Code(s): Z79.01 - skilled nursing (current) use of anticoagulants Status: Acute (6) Ankle fracture: Qualifiers: Encounter type: initial encounter Fracture type: closed Laterality: right Qualified Code(s): S82.891A - Other fracture of right lower leg, initial encounter for closed fracture Code(s): S82.899A - Other fracture of unspecified lower leg, initial encounter for closed fracture Status: Acute (7) Lumbar stenosis without neurogenic claudication: Code(s): M48.061 - Spinal stenosis, lumbar region without neurogenic claudication Status: Chronic (8) Morbid obesity: Onset Date: ~2009 Code(s): E66.01 - Morbid (severe) obesity due to excess calories Status: Chronic Plan 73 y/o F presents here with R foot pain and reduced mobility after a ground level fall with PMH of aortic stenosis s/p TAVR,?a fib on coumadin, external hemorrhoids, CKD stage 3, HFpEF, HTN, GAVE on EGD/gastritis, GERD, HLD, gout, ANNIE non compliant with CPAP, osteoporosis, peripheral neuropathy, diabetes, uterine cancer (s/p hysterectomy), and vitamin D deficiency. Awaiting nursing/rehab placement. 1) right ankle fracture: - patient is a confirmed right ankle fracture based on MRI - patient in favor nonsurgical intervention at this time - Follow up closely as per Orthopedics for further recommendations - she would require to be repeated with the cam walker boot upon discharge - PT/OT evaluation - care coordination to assist with DC planning and procurement of cam walker boot ortho following and recommends non surgical intervention awaiting placement 2) acute hypoxic hypercapnic respiratory failure 2/2 ANNIE/OHS/CHF - ANNIE OHS syndrome. PFT 01/13/23 did not demonstrate obstruction but severe restrictive abnormality along with decreased diffusing capacity. per pulm office reports she was supposed to be using o2 at home intermittently. - cont to wean off Oxygen as tolerated, keeping O2 sats between 90-94%. she may need this ongoing 3) HFpEF - compensated, in fact we may have diuresed too aggresively so on 04/17 d/c lasix. - pending echo. mention of tamponade on chest imaging. last echo 71% EF with indeterminate diastolic function in 10/19 - cont daily weights. fluid restriction held temporarily as her kidney function improved with fluid resuscitation. monitor this closely - restarting lasix per nephrology 4) hyperkalemia - mild, resolved after lasix administration 5) ABDIEL on CKD stage 3 - baseline CKD stage 3 w/ sCR 1.3-1.7. worsened after diuresis now improving after received gently fluids on 04/17. she did also have hypotensive episode on 04/15 when she was altered. Nephrology on board Renal function stable 6) severe macrocytic anemia -?reviewed notes from september 2022. she has elevated retic count. oncology consult
[2023-04-24] MEDS: dilTIAZem HCL CD 120 MG CAP.24HR PO (08:43)
[2023-04-24] MEDS: FERROUS SULFATE 325 MG TABLET DR PO ×3 (08:43→17:38)
[2023-04-24] MEDS: GABAPENTIN 300 MG CAPSULE 600 MG PO ×3 (08:43→17:38)
[2023-04-24] MEDS: CYANOCOBALAMIN 1,000 MCG TABLET 1000 MCG PO (08:43)
[2023-04-24] MEDS: METOPROLOL TARTRATE 25 MG TABLET PO ×2 (08:44→20:59)
[2023-04-24] MEDS: MONTELUKAST SODIUM 10 MG TABLET PO (08:44)
[2023-04-24] MEDS: polyethylene glycoL 3350 17 GM POWD.PACK PO (08:44)
[2023-04-24] MEDS: LORATADINE 10 MG TABLET PO (08:44)
[2023-04-24] MEDS: TRIAMCINOLONE ACET 0.1% OINT 15 GM TUBE 1 APPLIC TOPICAL ×2 (08:45→17:38)
[2023-04-24] MEDS: TOLNAFTATE 1% POWDER 45 GM BTL 1 APPLIC TOPICAL ×2 (08:45→20:59)
[2023-04-24] MEDS: INSULIN GLARGINE (*BKC) 100 UNITS/ML 35 UNITS SUB-Q (08:47)
[2023-04-24] MEDS: FLUTICASONE PROP 110 MCG INHALER 12 GM (*SP) 1 PUFF INHALATION ×2 (09:13→20:31)
--- NOTE | 2023-04-24 11:37 | P.PNNP_ITS ---
Progress Note: A&P Assessment and Plan (1) Acute kidney injury: Code(s): N17.9 - Acute kidney failure, unspecified Status: Acute Assessment and Plan: * noted worsening on 04/15/23 during hospitalization * creatinine seemed to peak at 2.6mg/dl -- down to 2.2mg/dl until today down to 2.0. * Her former baseline was 1.2-1.5. * Hopefully will continue to wonder down there. * Her urine sodium is low. * She is eating well so I do not think we need to give her IV fluids , especially since her creatinine fell a little bit. * Patient is getting neither IV fluids no diuretics. * She is eating okay. * Creatinine is about the same at 2.0. * Continue watching the creatinine. (2) Stage 3b chronic kidney disease: Code(s): N18.32 - Chronic kidney disease, stage 3b Status: Chronic Assessment and Plan: * baseline creatinine runs around 1.1 - 1.6mg/dl since 2019 (if not longer) * felt to be secondary to diabetes, hypertension, vascular disease, ANNIE/pulmonary HTN, chronic CHF + diuretic therapy, and age-related change (3) Status post fall: Code(s): Z91.81 - History of falling Status: Acute Assessment and Plan: * with noted injury of facial contusions and right foot pain * no evidence of orbital fracture by imaging * no evidence of RLE fracture by x-ray imaging to date -- however, unable to bear weight on right foot * MRI of right foot showed an ankle fracture. * PT/OT as tolerated (4) Ankle fracture: Qualifiers: Encounter type: initial encounter Fracture type: closed Laterality: right Qualified Code(s): S82.891A - Other fracture of right lower leg, initial encounter for closed fracture Code(s): S82.899A - Other fracture of unspecified lower leg, initial encounter for closed fracture Status: Acute Assessment and Plan: * as noted by right ankle MRI * Orthopedic following * patient has opted for non-surgical treatment (5) History of chronic CHF: Code(s): Z86.79 - Personal history of other diseases of the circulatory system Status: Acute Assessment and Plan: * diastolic in nature -- preserved EF by last Echo * appears compensated at this time * Continue holding diuretics. * Lungs sound pretty good and not much swelling. * Patient does have a little bit of fluid by chest x-ray. Is not short of breath. * Will check another chest x-ray in the morning (6) Anemia: Qualifiers: Anemia type: due to chronic kidney disease Code(s): D64.9 - Anemia, unspecified Status: Acute Assessment and Plan: * due to ABDIEL, CKD, and iron deficiency * on oral iron. She is on no IV Venofer currently. * s/p Epogen dosing * Latest T sat 30. * Hematology on the case (7) Essential (primary) hypertension: Code(s): I10 - Essential (primary) hypertension Status: Chronic Assessment and Plan: * Systolic running 99-115. * off hydralazine * on metoprolol + diltiazem (but this is more for rate control of her atrial fibrillation) * Pulse 70-103. (8) Chronic respiratory failure with hypoxia and hypercapnia: Code(s): J96.11 - Chronic respiratory failure with hypoxia; J96.12 - Chronic respiratory failure with hypercapnia Status: Acute Assessment and Plan: * secondary to ANNIE and OHS * PFTs on 01/13/23 did not demonstrate obstruction but severe restrictive abnormality along with decreased diffusing capacity * supposed to be using oxygen at home intermittently (per Pulm
--- NOTE | 2023-04-24 11:37 | PM.PNNEP ---
Progress Note: A&P Assessment and Plan (1) Acute kidney injury: Code(s): N17.9 - Acute kidney failure, unspecified Status: Acute Assessment and Plan: noted worsening on 04/15/23 during hospitalization creatinine seemed to peak at 2.6mg/dl -- down to 2.2mg/dl until today down to 2.0. Her former baseline was 1.2-1.5. Hopefully will continue to wonder down there. Her urine sodium is low. She is eating well so I do not think we need to give her IV fluids , especially since her creatinine fell a little bit. Patient is getting neither IV fluids no diuretics. She is eating okay. Creatinine is about the same at 2.0. Continue watching the creatinine. (2) Stage 3b chronic kidney disease: Code(s): N18.32 - Chronic kidney disease, stage 3b Status: Chronic Assessment and Plan: baseline creatinine runs around 1.1 - 1.6mg/dl since 2019 (if not longer) felt to be secondary to diabetes, hypertension, vascular disease, ANNIE/pulmonary HTN, chronic CHF + diuretic therapy, and age-related change (3) Status post fall: Code(s): Z91.81 - History of falling Status: Acute Assessment and Plan: with noted injury of facial contusions and right foot pain no evidence of orbital fracture by imaging no evidence of RLE fracture by x-ray imaging to date -- however, unable to bear weight on right foot MRI of right foot showed an ankle fracture. PT/OT as tolerated (4) Ankle fracture: Qualifiers: Encounter type: initial encounter Fracture type: closed Laterality: right Qualified Code(s): S82.891A - Other fracture of right lower leg, initial encounter for closed fracture Code(s): S82.899A - Other fracture of unspecified lower leg, initial encounter for closed fracture Status: Acute Assessment and Plan: as noted by right ankle MRI Orthopedic following patient has opted for non-surgical treatment (5) History of chronic CHF: Code(s): Z86.79 - Personal history of other diseases of the circulatory system Status: Acute Assessment and Plan: diastolic in nature -- preserved EF by last Echo appears compensated at this time Continue holding diuretics. Lungs sound pretty good and not much swelling. Patient does have a little bit of fluid by chest x-ray. Is not short of breath. Will check another chest x-ray in the morning (6) Anemia: Qualifiers: Anemia type: due to chronic kidney disease Code(s): D64.9 - Anemia, unspecified Status: Acute Assessment and Plan: due to ABDIEL, CKD, and iron deficiency on oral iron. She is on no IV Venofer currently. s/p Epogen dosing Latest T sat 30. Hematology on the case (7) Essential (primary) hypertension: Code(s): I10 - Essential (primary) hypertension Status: Chronic Assessment and Plan: Systolic running 99-115. off hydralazine on metoprolol + diltiazem (but this is more for rate control of her atrial fibrillation) Pulse 70-103. (8) Chronic respiratory failure with hypoxia and hypercapnia: Code(s): J96.11 - Chronic respiratory failure with hypoxia; J96.12 - Chronic respiratory failure with hypercapnia Status: Acute Assessment and Plan: secondary to ANNIE and OHS PFTs on 01/13/23 did not demonstrate obstruction but severe restrictive abnormality along with decreased diffusing capacity supposed to be using oxygen at home intermittently (per Pulmonary) Using BiPAP machine for slumber. 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
[2023-04-24 11:54] LABS: Glucose Point of Care 166 mg/dl (65-105)
[2023-04-24 16:59] LABS: Glucose Point of Care 143 mg/dl (65-105)
--- NOTE | 2023-04-24 17:06 | PCRCNOTE ---
Pt not given 1400 tx because OC was in room.
[2023-04-24] MEDS: SENNA/DOCUSATE SODIUM TABLET 1 TAB PO (17:38)
[2023-04-24 20:50] LABS: Glucose Point of Care 182 mg/dl (65-105)
[2023-04-24] MEDS: ROSUVASTATIN 5 MG TABLET PO (20:59)
[2023-04-24] MEDS: LATANOPROST 0.005% OP SOLN 2.5 ML BTL 1 DROP EACH EYE (20:59)
[2023-04-25] VITALS (23 sets, daily range): BP systolic 99–145; BP diastolic 50–83; PULSE 65–126; RESP 17–24; TEMP 36.3–37.5; O2SAT 90–98
[2023-04-25] MEDS: IPRATROPIUM BR 0.02% INH SOLN 0.5 MG/2.5 ML VIAL INHALATION ×4 (02:02→20:27)
[2023-04-25] MEDS: ALBUTEROL SULFATE NEB 2.5 MG/3 ML INH INHALATION ×4 (02:02→20:27)
[2023-04-25 05:36] LABS: Basophils Percent Auto 0.7 % (0.2-1.2); Eosinophils Absolute Auto 0.3 K/mm3 (0-0.3); Eosinophils Percent Auto 4.5 % (0-4.4); Hematocrit 29.1 % (37.0-47.0); Hemoglobin 8.3 g/dL (12.0-15.0); Immature Granulocyte Absolute 0.03 K/mm3 (0.00-0.031); Immature Granulocyte Percent A 0.5 % (0-0.5); Lymphocytes Absolute Auto 0.24 K/mm3 (0.9-3.2); Lymphocytes Percent Auto 4.3 % (18.3-44.2); Mean Corpuscular HGB Conc 28.5 g/dl (32-36); Mean Corpuscular Volume 112.4 fl (80-100); Monocytes Absolute Auto 0.4 K/mm3 (0.1-0.6); Neutrophils Absolute Auto 4.7 K/mm3 (1.3-6.7); Platelet Count Result 267 k/mm3 (150-375); Red Blood Count 2.59 M/mm3 (4.2-5.4); Red Cell Distribution Width 15.1 % (11.5-14.5); White Blood Count 5.6 K/mm3 (4.5-10.0)
[2023-04-25 05:40] LABS: Alanine Aminotransferase 20 U/L (6-35); Albumin Level 3.6 g/dL (3.5-5.1); Alkaline Phosphatase 80 U/L (38-126); Anion Gap 9 mmol/L (8-16); Aspartate Amino Transferase 22 U/L (14-36); Bilirubin,Total 0.6 mg/dL (0.2-1.3); Blood Urea Nitrogen 60 mg/dL (7-17); Calcium 9.2 mg/dL (8.4-10.2); Carbon Dioxide 22 mmol/L (22-30); Chloride 108 mmol/L (98-107); Estimated CRCL calculation 43 ml/min; Estimated Glomerular Filt Rate 31; Glucose 155 mg/dL (65-110); Phosphorus 3.8 mg/dL (2.5-4.5); Potassium 5.1 mmol/L (3.4-5.0); Sodium 139 mmol/L (137-145)
[2023-04-25 06:13] LABS: Anisocytosis 1+ (NORMAL); Macrocytosis 1+ (NORMAL); Platelet Estimate Adequate (Adequate); Poikilocytosis 1+ (NORMAL); Schistocytes None Seen (NORMAL)
[2023-04-25] MEDS: FLUTICASONE PROP 110 MCG INHALER 12 GM (*SP) 1 PUFF INHALATION ×2 (07:30→20:32)
--- NOTE | 2023-04-25 08:24 | PM.IMPN ---
Progress Note: A&P Assessment and Plan (1) Altered mental status: Qualifiers: Altered mental status type: disorientation Qualified Code(s): R41.0 - Disorientation, unspecified Code(s): R41.82 - Altered mental status, unspecified Status: Acute Assessment and Plan: resolved (2) Multiple contusions: Code(s): T07.XXXA - Unspecified multiple injuries, initial encounter Status: Acute (3) Ambulatory dysfunction: Code(s): R26.2 - Difficulty in walking, not elsewhere classified Status: Acute (4) CKD (chronic kidney disease) stage 3, GFR 30-59 ml/min: Code(s): N18.30 - Chronic kidney disease, stage 3 unspecified Status: Acute (5) Chronic anticoagulation: Code(s): Z79.01 - [facility] (current) use of anticoagulants Status: Acute (6) Ankle fracture: Qualifiers: Encounter type: initial encounter Fracture type: closed Laterality: right Qualified Code(s): S82.891A - Other fracture of right lower leg, initial encounter for closed fracture Code(s): S82.899A - Other fracture of unspecified lower leg, initial encounter for closed fracture Status: Acute (7) Lumbar stenosis without neurogenic claudication: Code(s): M48.061 - Spinal stenosis, lumbar region without neurogenic claudication Status: Chronic (8) Morbid obesity: Onset Date: ~2009 Code(s): E66.01 - Morbid (severe) obesity due to excess calories Status: Chronic Plan 73 y/o F presents here with R foot pain and reduced mobility after a ground level fall with PMH of aortic stenosis s/p TAVR,?a fib on coumadin, external hemorrhoids, CKD stage 3, HFpEF, HTN, GAVE on EGD/gastritis, GERD, HLD, gout, ANNIE non compliant with CPAP, osteoporosis, peripheral neuropathy, diabetes, uterine cancer (s/p hysterectomy), and vitamin D deficiency. Awaiting nursing/rehab placement. 1) right ankle fracture: - patient is a confirmed right ankle fracture based on MRI - patient in favor nonsurgical intervention at this time - Follow up closely as per Orthopedics for further recommendations - she would require to be repeated with the cam walker boot upon discharge - PT/OT evaluation - care coordination to assist with DC planning and procurement of cam walker boot ortho following and recommends non surgical intervention awaiting placement 2) acute hypoxic hypercapnic respiratory failure 2/2 ANNIE/OHS/CHF - ANNIE OHS syndrome. PFT 01/13/23 did not demonstrate obstruction but severe restrictive abnormality along with decreased diffusing capacity. per pulm office reports she was supposed to be using o2 at home intermittently. - cont to wean off Oxygen as tolerated, keeping O2 sats between 90-94%. she may need this ongoing 3) HFpEF - compensated, in fact we may have diuresed too aggresively so on 04/17 d/c lasix. - pending echo. mention of tamponade on chest imaging. last echo 71% EF with indeterminate diastolic function in 10/19 - cont daily weights. fluid restriction held temporarily as her kidney function improved with fluid resuscitation. monitor this closely - restarting lasix per nephrology 4) hyperkalemia - mild, resolved after lasix administration 5) ABDIEL on CKD stage 3 - baseline CKD stage 3 w/ sCR 1.3-1.7. worsened after diuresis now improving after received gently fluids on 04/17. she did also have hypotensive episode on 04/15 when she was altered. Nephrology on board Renal function stable 6) severe macrocytic anemia -?reviewed notes from september 2022. she has elevated retic count. oncology consulted. she had been following as outpatient and had bone marrow biopsy 10/14/22. Haptoglobin within normal limit . she had EGD and and colonoscopy in september 2022 and required transfusion. mild gastritis, diverticulosis and hemorrhoids were observed. considering her kidney injury we are going to have to hold off on protonix for now - she is on aspirin and lovenox, but holding
[2023-04-25] MEDS: MONTELUKAST SODIUM 10 MG TABLET PO (08:44)
[2023-04-25] MEDS: GABAPENTIN 300 MG CAPSULE 600 MG PO ×3 (08:44→17:55)
[2023-04-25] MEDS: polyethylene glycoL 3350 17 GM POWD.PACK PO (08:45)
[2023-04-25] MEDS: METOPROLOL TARTRATE 25 MG TABLET PO ×2 (08:45→21:20)
[2023-04-25] MEDS: TOLNAFTATE 1% POWDER 45 GM BTL 1 APPLIC TOPICAL ×2 (08:45→21:20)
[2023-04-25] MEDS: TRIAMCINOLONE ACET 0.1% OINT 15 GM TUBE 1 APPLIC TOPICAL ×2 (08:45→17:56)
[2023-04-25] MEDS: LORATADINE 10 MG TABLET PO (08:45)
[2023-04-25] MEDS: SENNA/DOCUSATE SODIUM TABLET 1 TAB PO ×2 (08:45→17:55)
[2023-04-25] MEDS: CYANOCOBALAMIN 1,000 MCG TABLET 1000 MCG PO (08:45)
[2023-04-25] MEDS: FERROUS SULFATE 325 MG TABLET DR PO ×3 (08:45→17:55)
[2023-04-25] MEDS: dilTIAZem HCL CD 120 MG CAP.24HR PO (08:45)
[2023-04-25 08:55] LABS: Glucose Point of Care 139 mg/dl (65-105)
[2023-04-25] MEDS: INSULIN GLARGINE (*BKC) 100 UNITS/ML 35 UNITS SUB-Q (08:55)
--- NOTE | 2023-04-25 11:02 | PM.PNORT ---
Progress Note: A&P Assessment and Plan (1) Fracture of posterior malleolus of right tibia: Qualifiers: Encounter type: subsequent encounter Fracture type: closed Fracture healing: with routine healing Qualified Code(s): S82.391D - Other fracture of lower end of right tibia, subsequent encounter for closed fracture with routine healing Code(s): S82.391A - Other fracture of lower end of right tibia, initial encounter for closed fracture Status: Acute Assessment and Plan: Right ankle posterior malleolus fracture. Fracture boot in room. PT/OT with fracture boot on, weight-bearing as tolerated. Placement. Subjective Subjective Date/Time Seen: 04/25/23 11:02 Interval history: Patient sitting up on the bedside at time of exam, naked. Somewhat confused but answering questions appropriately. Attempting to get her gown back on. Asking to go to the bathroom. Experiencing jerking type movements which she states she was also having at home. Patient repositioned, gowned. Put on bedpan with assist of PCT. Review of Systems Review of Systems: All systems reviewed & are unremarkable except as noted in HPI and below Exam Const: General: uncomfortable HENMT: Head: hematoma right occipital and right temporal Mouth: Yes moist mucous membranes Eyes: General: appearance normal, both eyes and all related structures Neck: Neck: supple and no JVD Resp: Other: shortness of breath. Readministered NC O2. GI: GI Palp: Yes Soft to palpation Extrem: Right lower extremity: foot Details: normal capillary refill, toes with normal ROM, no edema, ecchymosis, vascular exam Details: dorsalis pedis pulse present, tendon exam Details: active flexion normal and motor-sensory exam Details: two point discrimination normal and light-touch normal; no unusual warmth and no crepitus Objective Data Vital Signs Vital Signs: Vital Signs - 24 hr 04/24/23 12:44 04/24/23 12:00 04/24/23 17:22 Temperature 36.2 C L Pulse Rate 87 90 103 H Respiratory Rate 16 Blood Pressure 116/68 Pulse Oximetry 97 Oxygen Delivery Oxygen Flow Rate 04/24/23 16:00 04/24/23 16:00 04/24/23 19:54 Temperature 36.2 C L 36.8 C Pulse Rate 84 103 H 104 H Respiratory Rate 18 18 Blood Pressure 138/76 118/90 Pulse Oximetry 97 97 Oxygen Delivery Oxygen Flow Rate 04/24/23 20:15 04/24/23 20:15 04/24/23 20:26 Temperature Pulse Rate 111 H 111 H 104 H Respiratory Rate 20 20 Blood Pressure Pulse Oximetry 97 Oxygen Delivery Nasal Cannula Oxygen Flow Rate 2 04/24/23 20:59 04/24/23 20:00 04/24/23 23:14 Temperature Pulse Rate 104 H 106 H 104 H Respiratory Rate 19 Blood Pressure Pulse Oximetry 98 Oxygen Delivery BiPAP Oxygen Flow Rate 04/25/23 00:00 04/25/23 00:00 04/25/23 02:02 Temperature 37.5 C Pulse Rate 65 92 108 H Respiratory Rate 18 20 Blood Pressure 124/69 Pulse Oximetry 94 Oxygen Delivery Oxygen Flow Rate 04/25/23 03:14 04/25/23 02:10 04/25/23 04:00 Temperature 36.3 C L Pulse Rate 108 H 105 H 104 H Respiratory Rate 20 20 18 Blood Pressure 99/51 L Pulse Oximetry 97 96 Oxygen Delivery BiPAP Oxygen Flow Rate 04/25/23 04:00 04/25/23 05:00 04/25/23 07:33 Temperature 36.3 C L Pulse Rate 107 H 114 H Respiratory Rate 18 Blood Pressure 124/60 Pulse Oximetry 90 94 Oxygen Delivery Nasal Cannula Oxygen Flow Rate 3 04/25/23 07:33 04/25/23 07:44 04/25/23 08:00 Temperature 36.8 C Pulse Rate 102 H 104 H 122 H Respiratory Rate 20 20 21 H Blood Pressure 143/83 H Pulse Oximetry 91 Oxygen Delivery Oxygen Flow Rate 04/25/23 08:45 Temperature Pulse Rate 120 H Respiratory Rate Blood Pressure Pulse Oximetry Oxygen Delivery Oxygen Flow Rate Intake/Output Intake/Output: Intake & Output 04/22/23 04/23/23 04/24/23 04/25/23 23:59 23:59 23:59 23:59 Intake Total 2670 1330 1190 240 Output T
--- NOTE | 2023-04-25 11:48 | PM.PNNEP ---
Progress Note: A&P Assessment and Plan (1) Acute kidney injury: Code(s): N17.9 - Acute kidney failure, unspecified Status: Acute Assessment and Plan: noted worsening on 04/15/23 during hospitalization creatinine seemed to peak at 2.6mg/dl skow improvement noted holding IVFs and diuretic therapy follow trend of repeat labs and UOP (2) Stage 3b chronic kidney disease: Code(s): N18.32 - Chronic kidney disease, stage 3b Status: Chronic Assessment and Plan: baseline creatinine runs around 1.1 - 1.6mg/dl since 2019 (if not longer) felt to be secondary to diabetes, hypertension, vascular disease, ANNIE/pulmonary HTN, chronic CHF + diuretic therapy, and age-related change (3) Status post fall: Code(s): Z91.81 - History of falling Status: Acute Assessment and Plan: with noted injury of facial contusions and right foot pain no evidence of orbital fracture by imaging no evidence of RLE fracture by x-ray imaging to date -- however, unable to bear weight on right foot MRI of right foot showed an ankle fracture PT/OT as tolerated (4) Ankle fracture: Qualifiers: Encounter type: initial encounter Fracture type: closed Laterality: right Qualified Code(s): S82.891A - Other fracture of right lower leg, initial encounter for closed fracture Code(s): S82.899A - Other fracture of unspecified lower leg, initial encounter for closed fracture Status: Acute Assessment and Plan: as noted by right ankle MRI Orthopedic following patient has opted for non-surgical treatment (5) History of chronic CHF: Code(s): Z86.79 - Personal history of other diseases of the circulatory system Status: Acute Assessment and Plan: diastolic in nature -- preserved EF by last Echo appears compensated at this time respiratory status stable and not much swelling/edema diuretics currently on hold follow clinical exam and CXR findings (6) Anemia: Qualifiers: Anemia type: due to chronic kidney disease Code(s): D64.9 - Anemia, unspecified Status: Acute Assessment and Plan: due to ABDIEL, CKD, and iron deficiency on oral iron s/p Epogen dosing Hematology following (7) Essential (primary) hypertension: Code(s): I10 - Essential (primary) hypertension Status: Chronic Assessment and Plan: still on the soft side on metoprolol + diltiazem (but this is more for rate control of her atrial fibrillation) follow trend of hemodynamics (8) Chronic respiratory failure with hypoxia and hypercapnia: Code(s): J96.11 - Chronic respiratory failure with hypoxia; J96.12 - Chronic respiratory failure with hypercapnia Status: Acute Assessment and Plan: secondary to ANNIE and OHS PFTs on 01/13/23 did not demonstrate obstruction but severe restrictive abnormality along with decreased diffusing capacity supposed to be using oxygen at home intermittently (per Pulmonary) Using BiPAP machine for sleep (9) Type 2 diabetes mellitus with diabetic neuropathy: Qualifiers: Diabetes mellitus ad terminal makeup operator insulin use: with [facility] use Qualified Code(s): E11.40 - Type 2 diabetes mellitus with diabetic neuropathy, unspecified; Z79.4 - intermediate (current) use of insulin Code(s): E11.40 - Type 2 diabetes mellitus with diabetic neuropathy, unspecified Status: Chronic Assessment and Plan: follow accu-cheks glycemic control per hospitalists Will continue to follow. Subjective Date/time seen: 04/25/23 11:48 Interval history: Follow-up for acute kidney injury/acute renal failure on chronic kidney disease. Overall, seems to be doing reasonably well; no apparent distress noted; no acute issues or events overnight or earlier this morning; feels better in general as well. Exam Narrative: General: Large female in NAD Heart: normal S1 and S2; no
--- NOTE | 2023-04-25 11:48 | P.PNNP_ITS ---
Progress Note: A&P Assessment and Plan (1) Acute kidney injury: Code(s): N17.9 - Acute kidney failure, unspecified Status: Acute Assessment and Plan: * noted worsening on 04/15/23 during hospitalization * creatinine seemed to peak at 2.6mg/dl * skow improvement noted * holding IVFs and diuretic therapy * follow trend of repeat labs and UOP (2) Stage 3b chronic kidney disease: Code(s): N18.32 - Chronic kidney disease, stage 3b Status: Chronic Assessment and Plan: * baseline creatinine runs around 1.1 - 1.6mg/dl since 2019 (if not longer) * felt to be secondary to diabetes, hypertension, vascular disease, ANNIE/pulmonary HTN, chronic CHF + diuretic therapy, and age-related change (3) Status post fall: Code(s): Z91.81 - History of falling Status: Acute Assessment and Plan: * with noted injury of facial contusions and right foot pain * no evidence of orbital fracture by imaging * no evidence of RLE fracture by x-ray imaging to date -- however, unable to bear weight on right foot * MRI of right foot showed an ankle fracture * PT/OT as tolerated (4) Ankle fracture: Qualifiers: Encounter type: initial encounter Fracture type: closed Laterality: right Qualified Code(s): S82.891A - Other fracture of right lower leg, initial encounter for closed fracture Code(s): S82.899A - Other fracture of unspecified lower leg, initial encounter for closed fracture Status: Acute Assessment and Plan: * as noted by right ankle MRI * Orthopedic following * patient has opted for non-surgical treatment (5) History of chronic CHF: Code(s): Z86.79 - Personal history of other diseases of the circulatory system Status: Acute Assessment and Plan: * diastolic in nature -- preserved EF by last Echo * appears compensated at this time * respiratory status stable and not much swelling/edema * diuretics currently on hold * follow clinical exam and CXR findings (6) Anemia: Qualifiers: Anemia type: due to chronic kidney disease Code(s): D64.9 - Anemia, unspecified Status: Acute Assessment and Plan: * due to ABDIEL, CKD, and iron deficiency * on oral iron * s/p Epogen dosing * Hematology following (7) Essential (primary) hypertension: Code(s): I10 - Essential (primary) hypertension Status: Chronic Assessment and Plan: * still on the soft side * on metoprolol + diltiazem (but this is more for rate control of her atrial fibrillation) * follow trend of hemodynamics (8) Chronic respiratory failure with hypoxia and hypercapnia: Code(s): J96.11 - Chronic respiratory failure with hypoxia; J96.12 - Chronic respiratory failure with hypercapnia Status: Acute Assessment and Plan: * secondary to ANNEI and OHS * PFTs on 01/13/23 did not demonstrate obstruction but severe restrictive abnormality along with decreased diffusing capacity * supposed to be using oxygen at home intermittently (per Pulmonary) * Using BiPAP machine for sleep (9) Type 2 diabetes mellitus with diabetic neuropathy: Qualifiers: Diabetes mellitus skilled nursing insulin use: with skilled nursing use Qualified Code(s): E11.40 - Type 2 diabetes mellitus with diabetic neuropathy, unspecified; Z79.4 - manager long term care (current) use of insulin Code(s): E11.40 - Type 2 diabetes mellitus with diabetic neuropathy, unspecified Status: Chronic Assessment and Plan: * follow accu-cheks * glycemic control per hos
[2023-04-25 12:17] LABS: Glucose Point of Care 194 mg/dl (65-105)
[2023-04-25 13:37] LABS: IFOB Positive Control Positive; Immunochemical Fecal Occult Bl Negative (N)
--- NOTE | 2023-04-25 14:20 | PCOTNOTE ---
Addendum entered by GIL Ro 04/26/23 07:35: Communication with Patient RN at 14:15 that patient had her oxygen off upon arrival for OT treatment. Original Note: Communication with Patient RN at 14:15 that patient had her oxygen off upon arrival for OT treatment. Suggested adding O2 monitor to residential monitor to avoid patient O2 dropping.
[2023-04-25 15:57] LABS: Alveolar/Arterial O2 Gradient 119.1 mmHg; Base Excess ABG -0.1 mEq/l (+/-2.0); Fractional Inspired Oxygen 32 %; HCO3 ABG 26.3 mEq/l (22.0-26.0); Oxygen Content ABG 10.4 %vol (16.0-22.0); PCO2 ABG 51.7 mmHg (35.0-45.0); PO2 FiO2 Ratio Arterial Blood 1.52 %; Total Hemoglobin 9.1 g/dL (12.0-18.0); pH ABG 7.324 (7.350-7.450)
[2023-04-25 16:10] LABS: PO2 ABG 57.1 mmHg (80.0-100.0)
[2023-04-25 16:15] LABS: Oxygen Saturation ABG 87.7 % (95.0-100.0)
[2023-04-25 16:16] LABS: Device NASAL CANNULA; Modified Allen's Test Pass; Oxyhemoglobin 87.3 % THb (90.0-100.0); Site Drawn RIGHT RADIAL
--- NOTE | 2023-04-25 16:51 | WPDGICN ---
Assessment and Plan Assessment and plan (1) Acute on chronic anemia: Code(s): D64.9 - Anemia, unspecified Status: Resolved Assessment and Plan: probably multifactorial had egd and colonoscopy earlier this year holding anticoagulation - had fall with significant trauma in face (2) Chronic respiratory failure with hypoxia and hypercapnia: Code(s): J96.11 - Chronic respiratory failure with hypoxia; J96.12 - Chronic respiratory failure with hypercapnia Status: Acute Assessment and Plan: given current condition I do not think that she is candidate for another egd (had GAVE that was treated in the past with apc but no signs of active gib), still some respiratory issues (3) Status post fall: Code(s): Z91.81 - History of falling Status: Acute (4) Ankle fracture: Qualifiers: Encounter type: initial encounter Fracture type: closed Laterality: right Qualified Code(s): S82.891A - Other fracture of right lower leg, initial encounter for closed fracture Code(s): S82.899A - Other fracture of unspecified lower leg, initial encounter for closed fracture Status: Acute (5) Multiple contusions: Code(s): T07.XXXA - Unspecified multiple injuries, initial encounter Status: Acute (6) Chronic anticoagulation: Code(s): Z79.01 - marketing engineer (current) use of anticoagulants Status: Acute Assessment and Plan: on hold (7) Type 2 diabetes mellitus with diabetic nephropathy, with long-term current use of insulin: Code(s): E11.21 - Type 2 diabetes mellitus with diabetic nephropathy; Z79.4 - marketing engineer (current) use of insulin Status: Chronic GI Consult Note Consult date/time: 04/25/23 16:51 Reason for consult: acute on chronic anemia HPI: Laurel Rucker is a 73 year old female with history of morbid obesity, atrial fibrillation on chronic anticoagulation, insulin-dependent diabetes mellitus, uterine cancer s/p hysterectomy and chronic anemia (I saw her 09/2022 when she presented with symptomatic anemia- egd with gastritis- also had GAVE treated in the past with APC- colonoscopy with TA polyps), then had BM biopsy and apparently no major findings, also seeing foreclosure paralegal. ?She was admitted several days ago after had ground level fall, she still has extensive hematoma to right face and has been in the hospital since. She has required cpap and oxygen, no report of overt gib. Consult because ongoing anemia. Review of Systems Constitutional: Constitutional: Reports fatigue Eyes: Eyes: Denies no additional eye complaints ENT: Reports Normal hearing present Cardiovascular: Cardiovascular: Denies chest pain Respiratory: Respiratory: Reports cough Gastrointestinal: Gastrointestinal: Denies abdominal pain Musculoskeletal: Musculoskeletal: Reports arthralgias Integumentary/Breasts: Comments: hematoma Neurologic: Reports confusion [facility] Past Medical History Medical History (Updated 04/21/23 @ 17:33 by Meenu Dwyer MD) Accidental fall from bed Adenomatous colon polyp Ankle fracture Aortic stenosis (~2017) status post aortic valve replacement(09/18) Arthritis (~2009) Asthma Calcification of left breast on mammography Chronic anticoagulation Chronic back pain CKD (chronic kidney disease) stage 3, GFR 30-59 ml/min CKD stage 3 due to type 2 diabetes mellitus (~05/2019) With history of temporary dialysis during lengthy hospitalization Colon, diverticulosis Diastolic congestive heart failure (~2018) Most recent echo April 2020. Mild LVH. EF 60%. Mild mitral valve regurgitation Diverticulitis Essential (primary) hypertension External hemorrhoids without complication Fracture of posterior malleolus of right tibia Frequent falls GAVE (gastric antral vascular ectasia) Noted on EGD 12/2020 GERD without esophagitis Glaucoma Gout Hyperlipidemia (~2009) Hypertensive heart and chronic kidney disease with heart failure
[2023-04-25 17:22] LABS: Glucose Point of Care 157 mg/dl (65-105)
[2023-04-25 20:22] LABS: Glucose Point of Care 141 mg/dl (65-105)
[2023-04-25] MEDS: LATANOPROST 0.005% OP SOLN 2.5 ML BTL 1 DROP EACH EYE (21:20)
[2023-04-25] MEDS: ROSUVASTATIN 5 MG TABLET PO (21:20)
[2023-04-26] VITALS (32 sets, daily range): BP systolic 97–158; BP diastolic 56–90; PULSE 83–109; RESP 14–28; TEMP 36.1–37.1; O2SAT 92–100
[2023-04-26] MEDS: ALBUTEROL SULFATE NEB 2.5 MG/3 ML INH INHALATION ×4 (02:50→21:00)
[2023-04-26] MEDS: IPRATROPIUM BR 0.02% INH SOLN 0.5 MG/2.5 ML VIAL INHALATION ×4 (02:50→21:00)
[2023-04-26 06:02] LABS: Basophils Percent Auto 0.5 % (0.2-1.2); Eosinophils Absolute Auto 0.1 K/mm3 (0-0.3); Hematocrit 25.4 % (37.0-47.0); Hemoglobin 7.2 g/dL (12.0-15.0); Immature Granulocyte Absolute 0.03 K/mm3 (0.00-0.031); Immature Granulocyte Percent A 0.7 % (0-0.5); Lymphocytes Absolute Auto 0.37 K/mm3 (0.9-3.2); Lymphocytes Percent Auto 8.4 % (18.3-44.2); Mean Corpuscular HGB Conc 28.3 g/dl (32-36); Mean Corpuscular Volume 112.9 fl (80-100); Mean Platelet Volume 9.6 fl (7.4-10.4); Monocytes Absolute Auto 0.5 K/mm3 (0.1-0.6); Monocytes Percent Auto 10.7 % (2.6-8.5); Neutrophils Absolute Auto 3.4 K/mm3 (1.3-6.7); Neutrophils Percent Auto 77.7 % (45.5-73.1); Platelet Count Result 226 k/mm3 (150-375); Red Blood Count 2.25 M/mm3 (4.2-5.4); Red Cell Distribution Width 15.5 % (11.5-14.5); White Blood Count 4.4 K/mm3 (4.5-10.0)
[2023-04-26 06:24] LABS: Alanine Aminotransferase 19 U/L (6-35); Albumin Level 3.1 g/dL (3.5-5.1); Alkaline Phosphatase 73 U/L (38-126); Anion Gap 7 mmol/L (8-16); Aspartate Amino Transferase 23 U/L (14-36); Bilirubin,Total 0.5 mg/dL (0.2-1.3); Blood Urea Nitrogen 51 mg/dL (7-17); Calcium 8.6 mg/dL (8.4-10.2); Carbon Dioxide 25 mmol/L (22-30); Chloride 108 mmol/L (98-107); Estimated CRCL calculation 43 ml/min; Estimated Glomerular Filt Rate 31; Glucose 127 mg/dL (65-110); Potassium 4.8 mmol/L (3.4-5.0); Sodium 140 mmol/L (137-145)
[2023-04-26 06:40] LABS: Anisocytosis 2+ (NORMAL); Hypochromasia 1+ (NORMAL); Platelet Estimate Adequate (Adequate); Poikilocytosis 1+ (NORMAL); Schistocytes None Seen (NORMAL)
[2023-04-26] MEDS: FLUTICASONE PROP 110 MCG INHALER 12 GM (*SP) 1 PUFF INHALATION (07:32)
[2023-04-26 08:31] LABS: Glucose Point of Care 107 mg/dl (65-105)
[2023-04-26] MEDS: INSULIN GLARGINE (*BKC) 100 UNITS/ML 35 UNITS SUB-Q (09:54)
[2023-04-26] MEDS: MONTELUKAST SODIUM 10 MG TABLET PO (09:55)
[2023-04-26] MEDS: METOPROLOL TARTRATE 25 MG TABLET PO ×2 (09:55→20:34)
[2023-04-26] MEDS: GABAPENTIN 300 MG CAPSULE 600 MG PO ×3 (09:55→17:52)
[2023-04-26] MEDS: dilTIAZem HCL CD 120 MG CAP.24HR PO (09:56)
[2023-04-26] MEDS: LORATADINE 10 MG TABLET PO (09:56)
[2023-04-26] MEDS: FERROUS SULFATE 325 MG TABLET DR PO ×3 (09:56→17:52)
[2023-04-26] MEDS: CYANOCOBALAMIN 1,000 MCG TABLET 1000 MCG PO (09:56)
[2023-04-26] MEDS: polyethylene glycoL 3350 17 GM POWD.PACK PO (09:56)
[2023-04-26] MEDS: TRIAMCINOLONE ACET 0.1% OINT 15 GM TUBE 1 APPLIC TOPICAL ×2 (09:57→17:53)
[2023-04-26] MEDS: TOLNAFTATE 1% POWDER 45 GM BTL 1 APPLIC TOPICAL ×2 (09:57→20:34)
[2023-04-26] MEDS: SENNA/DOCUSATE SODIUM TABLET 1 TAB PO ×2 (09:57→17:53)
[2023-04-26 12:08] LABS: Glucose Point of Care 165 mg/dl (65-105)
--- NOTE | 2023-04-26 12:56 | PM.IMPN ---
Progress Note: A&P Assessment and Plan (1) Altered mental status: Qualifiers: Altered mental status type: disorientation Qualified Code(s): R41.0 - Disorientation, unspecified Code(s): R41.82 - Altered mental status, unspecified Status: Acute Assessment and Plan: resolved (2) Multiple contusions: Code(s): T07.XXXA - Unspecified multiple injuries, initial encounter Status: Acute (3) Ambulatory dysfunction: Code(s): R26.2 - Difficulty in walking, not elsewhere classified Status: Acute (4) CKD (chronic kidney disease) stage 3, GFR 30-59 ml/min: Code(s): N18.30 - Chronic kidney disease, stage 3 unspecified Status: Acute (5) Chronic anticoagulation: Code(s): Z79.01 - FPC (current) use of anticoagulants Status: Acute (6) Ankle fracture: Qualifiers: Encounter type: initial encounter Fracture type: closed Laterality: right Qualified Code(s): S82.891A - Other fracture of right lower leg, initial encounter for closed fracture Code(s): S82.899A - Other fracture of unspecified lower leg, initial encounter for closed fracture Status: Acute (7) Lumbar stenosis without neurogenic claudication: Code(s): M48.061 - Spinal stenosis, lumbar region without neurogenic claudication Status: Chronic (8) Morbid obesity: Onset Date: ~2009 Code(s): E66.01 - Morbid (severe) obesity due to excess calories Status: Chronic Plan 73 y/o F presents here with R foot pain and reduced mobility after a ground level fall with PMH of aortic stenosis s/p TAVR,?a fib on coumadin, external hemorrhoids, CKD stage 3, HFpEF, HTN, GAVE on EGD/gastritis, GERD, HLD, gout, ANNIE non compliant with CPAP, osteoporosis, peripheral neuropathy, diabetes, uterine cancer (s/p hysterectomy), and vitamin D deficiency. Awaiting nursing/rehab placement. 1) right ankle fracture: - patient is a confirmed right ankle fracture based on MRI - patient in favor nonsurgical intervention at this time - Follow up closely as per Orthopedics for further recommendations - she would require to be repeated with the cam walker boot upon discharge - PT/OT evaluation - care coordination to assist with DC planning and procurement of cam walker boot ortho following and recommends non surgical intervention awaiting placement 2) acute hypoxic hypercapnic respiratory failure 2/2 ANNIE/OHS/CHF - ANNIE OHS syndrome. PFT 01/13/23 did not demonstrate obstruction but severe restrictive abnormality along with decreased diffusing capacity. per pulm office reports she was supposed to be using o2 at home intermittently. - cont to wean off Oxygen as tolerated, keeping O2 sats between 90-94%. she may need this ongoing - pt is on 3 liters of oxygen and cpap at night 3) HFpEF - compensated, in fact we may have diuresed too aggresively so on 04/17 d/c lasix. - pending echo. mention of tamponade on chest imaging. last echo 71% EF with indeterminate diastolic function in 10/19 - cont daily weights. fluid restriction held temporarily as her kidney function improved with fluid resuscitation. monitor this closely - restarting lasix per nephrology 4) hyperkalemia - mild, resolved after lasix administration 5) ABDIEL on CKD stage 3 - baseline CKD stage 3 w/ sCR 1.3-1.7. worsened after diuresis now improving after received gently fluids on 04/17. she did also have hypotensive episode on 04/15 when she was altered. Nephrology on board Renal function stable 6) severe macrocytic anemia -?reviewed notes from september 2022. she has elevated retic count. oncology consulted. she had been following as outpatient and had bone marrow biopsy 10/14/22. Haptoglobin within normal limit . she had EGD and and colonoscopy in september 2022 and required transfusion. mild gastritis, diverticulosis and hemorrhoids were observed. considering her kidney injury we are going to have to hold off on protonix for
[2023-04-26] MEDS: ACETAMINOPHEN 325 MG TABLET 650 MG PO (14:48)
--- NOTE | 2023-04-26 15:24 | WPDGIPROGNO ---
Progress Note: A&P Assessment and Plan (1) Acute on chronic anemia: Code(s): D64.9 - Anemia, unspecified Status: Resolved Assessment and Plan: h/h stable she has seeing hematology- macrocytic anemia earlier this year had scopes had gave in the past anticoagulation on hold since she has large hematoma in face after recent fall no need to repeat scope unless any change (2) Chronic respiratory failure with hypoxia and hypercapnia: Code(s): J96.11 - Chronic respiratory failure with hypoxia; J96.12 - Chronic respiratory failure with hypercapnia Status: Acute Assessment and Plan: improved, stable (3) Multiple contusions: Code(s): T07.XXXA - Unspecified multiple injuries, initial encounter Status: Acute (4) Ankle fracture: Qualifiers: Encounter type: initial encounter Fracture type: closed Laterality: right Qualified Code(s): S82.891A - Other fracture of right lower leg, initial encounter for closed fracture Code(s): S82.899A - Other fracture of unspecified lower leg, initial encounter for closed fracture Status: Acute Assessment and Plan: treated medically (5) Status post fall: Code(s): Z91.81 - History of falling Status: Acute (6) CKD (chronic kidney disease) stage 3, GFR 30-59 ml/min: Code(s): N18.30 - Chronic kidney disease, stage 3 unspecified Status: Acute (7) GAVE (gastric antral vascular ectasia): Code(s): K31.819 - Angiodysplasia of stomach and duodenum without bleeding Status: Acute Subjective Date/time seen: 04/26/23 15:24 Interval history: she is having a better day today, hoping to go to rehab soon Review of Systems Review of Systems: All systems reviewed & are unremarkable except as noted in HPI and below Exam Const: Other: using oxygen, chronically ill appearing HENMT: Face/Nose/Sinus: Normal nares present Eyes: Sclera: sclerae normal Other: hematoma rt face Neck: Neck: supple Resp: Auscultation: no wheezes Cardio: Rate: regular rate GI: GI Palp: Yes Soft to palpation and No Tenderness to palpation present (GI) Other: obese Skin: Other: hematoma face Neuro: Speech: normal speech Other: awake and alert, fully oriented today Extrem: General: pedal edema Psych: Attitude: not belligerent Objective Data Vital Signs Vital Signs: Vital Signs - 24 hr 04/25/23 16:12 04/25/23 16:36 04/25/23 16:00 Temperature 98.1 F Pulse Rate 116 H 103 H 107 H Respiratory Rate 17 23 H Blood Pressure 120/67 Pulse Oximetry 90 98 Oxygen Delivery BiPAP Oxygen Flow Rate Fraction of Inspired Oxygen 04/25/23 20:00 04/25/23 20:29 04/25/23 20:33 Temperature Pulse Rate 104 H 103 H 103 H Respiratory Rate 20 19 Blood Pressure Pulse Oximetry 96 Oxygen Delivery BiPAP Oxygen Flow Rate Fraction of Inspired Oxygen 04/25/23 20:36 04/25/23 20:37 04/25/23 21:20 Temperature Pulse Rate 104 H 101 H Respiratory Rate 20 Blood Pressure Pulse Oximetry 96 Oxygen Delivery BiPAP Oxygen Flow Rate Fraction of Inspired Oxygen 30 04/25/23 20:00 04/26/23 00:00 04/26/23 00:00 Temperature 98.7 F 97.7 F Pulse Rate 95 95 101 H Respiratory Rate 20 18 Blood Pressure 118/50 L 118/57 L Pulse Oximetry 97 95 Oxygen Delivery Oxygen Flow Rate Fraction of Inspired Oxygen 04/26/23 02:50 04/26/23 03:00 04/26/23 03:33 Temperature Pulse Rate 99 101 H 100 Respiratory Rate 20 20 28 H Blood Pressure Pulse Oximetry 97 Oxygen Delivery BiPAP Oxygen Flow Rate Fraction of Inspired Oxygen 04/26/23 04:00 04/26/23 04:00 04/26/23 07:29 Temperature 98.5 F Pulse Rate 99 97 Respiratory Rate 20 Blood Pressure 138/63 Pulse Oximetry 98 97 Oxygen Delivery Nasal Cannula Oxygen Flow Rate 3 Fraction of Inspired Oxygen 32 04/26/23 07:29 04/26/23 07:46 04/26/23 09:54
[2023-04-26 17:03] LABS: Glucose Point of Care 144 mg/dl (65-105)
[2023-04-26] MEDS: ROSUVASTATIN 5 MG TABLET PO (20:34)
[2023-04-26] MEDS: LATANOPROST 0.005% OP SOLN 2.5 ML BTL 1 DROP EACH EYE (20:34)
[2023-04-27] VITALS (12 sets, daily range): BP systolic 90–105; BP diastolic 44–67; PULSE 72–110; RESP 18–21; TEMP 36.2–36.5; O2SAT 92–98
[2023-04-27 00:07] LABS: Hematocrit 31.5 % (37.0-47.0); Hemoglobin 8.9 g/dL (12.0-15.0)
[2023-04-27] MEDS: IPRATROPIUM BR 0.02% INH SOLN 0.5 MG/2.5 ML VIAL INHALATION ×3 (02:31→14:54)
[2023-04-27] MEDS: ALBUTEROL SULFATE NEB 2.5 MG/3 ML INH INHALATION ×3 (02:31→14:54)
[2023-04-27 02:39] LABS: Glucose Point of Care 173 mg/dl (65-105)
[2023-04-27 07:01] LABS: Basophils Percent Auto 0.7 % (0.2-1.2); Eosinophils Absolute Auto 0.3 K/mm3 (0-0.3); Eosinophils Percent Auto 7.7 % (0-4.4); Hematocrit 32.2 % (37.0-47.0); Hemoglobin 9.3 g/dL (12.0-15.0); Immature Granulocyte Percent A 2.3 % (0-0.5); Lymphocytes Absolute Auto 0.53 K/mm3 (0.9-3.2); Mean Corpuscular HGB Conc 28.9 g/dl (32-36); Mean Corpuscular Hemoglobin 31.4 pg (26-34); Mean Corpuscular Volume 108.8 fl (80-100); Monocytes Absolute Auto 0.5 K/mm3 (0.1-0.6); Neutrophils Absolute Auto 2.9 K/mm3 (1.3-6.7); Neutrophils Percent Auto 65.3 % (45.5-73.1); Platelet Count Result 233 k/mm3 (150-375); Red Blood Count 2.96 M/mm3 (4.2-5.4); Red Cell Distribution Width 17.3 % (11.5-14.5); White Blood Count 4.4 K/mm3 (4.5-10.0)
[2023-04-27 07:07] LABS: Alanine Aminotransferase 21 U/L (6-35); Alkaline Phosphatase 77 U/L (38-126); Anion Gap 7 mmol/L (8-16); Aspartate Amino Transferase 27 U/L (14-36); Bilirubin,Total 0.6 mg/dL (0.2-1.3); Blood Urea Nitrogen 52 mg/dL (7-17); Calcium 8.5 mg/dL (8.4-10.2); Carbon Dioxide 25 mmol/L (22-30); Chloride 107 mmol/L (98-107); Estimated CRCL calculation 43 ml/min; Estimated Glomerular Filt Rate 31; Glucose 139 mg/dL (65-110); Potassium 4.8 mmol/L (3.4-5.0); Sodium 139 mmol/L (137-145)
[2023-04-27] MEDS: FLUTICASONE PROP 110 MCG INHALER 12 GM (*SP) 1 PUFF INHALATION (07:32)
[2023-04-27 08:15] LABS: Glucose Point of Care 137 mg/dl (65-105)
[2023-04-27] MEDS: FERROUS SULFATE 325 MG TABLET DR PO ×2 (08:53→12:51)
[2023-04-27] MEDS: MONTELUKAST SODIUM 10 MG TABLET PO (08:53)
[2023-04-27] MEDS: dilTIAZem HCL CD 120 MG CAP.24HR PO (08:53)
[2023-04-27] MEDS: GABAPENTIN 300 MG CAPSULE 600 MG PO ×2 (08:53→12:51)
[2023-04-27] MEDS: SENNA/DOCUSATE SODIUM TABLET 1 TAB PO (08:53)
[2023-04-27] MEDS: CYANOCOBALAMIN 1,000 MCG TABLET 1000 MCG PO (08:54)
[2023-04-27] MEDS: METOPROLOL TARTRATE 25 MG TABLET PO (08:54)
[2023-04-27] MEDS: ACETAMINOPHEN 325 MG TABLET 650 MG PO (08:54)
[2023-04-27] MEDS: polyethylene glycoL 3350 17 GM POWD.PACK PO (08:54)
[2023-04-27] MEDS: LORATADINE 10 MG TABLET PO (08:54)
[2023-04-27] MEDS: TOLNAFTATE 1% POWDER 45 GM BTL 1 APPLIC TOPICAL (08:56)
[2023-04-27] MEDS: INSULIN GLARGINE (*BKC) 100 UNITS/ML 35 UNITS SUB-Q (08:56)
[2023-04-27] MEDS: TRIAMCINOLONE ACET 0.1% OINT 15 GM TUBE 1 APPLIC TOPICAL (08:58)
[2023-04-27 11:17] LABS: Glucose Point of Care 186 mg/dl (65-105)
--- NOTE | 2023-04-27 11:36 | PCPTNOTE ---
Attempted to see patient for PT, however patient was working with OT.
--- NOTE | 2023-04-27 12:51 | PM.DS ---
DS: Admitting Diagnosis Discharge Date 04/27/2023 Admitting Diagnosis Foot Pain, Reduction in Mobility DS: Discharge Diagnosis Discharge Diagnosis (1) Altered mental status: Qualifiers: Altered mental status type: disorientation Qualified Code(s): R41.0 - Disorientation, unspecified Code(s): R41.82 - Altered mental status, unspecified Status: Acute Assessment and Plan: Resolved (2) Multiple contusions: Code(s): T07.XXXA - Unspecified multiple injuries, initial encounter Status: Acute (3) Ambulatory dysfunction: Code(s): R26.2 - Difficulty in walking, not elsewhere classified Status: Acute (4) CKD (chronic kidney disease) stage 3, GFR 30-59 ml/min: Code(s): N18.30 - Chronic kidney disease, stage 3 unspecified Status: Acute (5) Chronic anticoagulation: Code(s): Z79.01 - cable cutter and swager (current) use of anticoagulants Status: Acute (6) Ankle fracture: Qualifiers: Encounter type: initial encounter Fracture type: closed Laterality: right Qualified Code(s): S82.891A - Other fracture of right lower leg, initial encounter for closed fracture Code(s): S82.899A - Other fracture of unspecified lower leg, initial encounter for closed fracture Status: Acute (7) Lumbar stenosis without neurogenic claudication: Code(s): M48.061 - Spinal stenosis, lumbar region without neurogenic claudication Status: Chronic (8) Morbid obesity: Onset Date: ~2009 Code(s): E66.01 - Morbid (severe) obesity due to excess calories Status: Chronic Plan 73 y/o F presents here with R foot pain and reduced mobility after a ground level fall with PMH of aortic stenosis s/p TAVR,?a fib on coumadin, external hemorrhoids, CKD stage 3, HFpEF, HTN, GAVE on EGD/gastritis, GERD, HLD, gout, ANNIE non compliant with CPAP, osteoporosis, peripheral neuropathy, diabetes, uterine cancer (s/p hysterectomy), and vitamin D deficiency. 1) right ankle fracture: - patient is a confirmed right ankle fracture based on MRI - patient in favor nonsurgical intervention at this time - Follow up closely as per Orthopedics for further recommendations - she would require to be repeated with the cam walker boot upon discharge - PT/OT evaluation - care coordination to assist with DC planning and procurement of cam walker boot ortho following and recommends non surgical intervention awaiting placement 2) acute hypoxic hypercapnic respiratory failure 2/2 ANNIE/OHS/CHF - ANNIE OHS syndrome. PFT 01/13/23 did not demonstrate obstruction but severe restrictive abnormality along with decreased diffusing capacity. per pulm office reports she was supposed to be using o2 at home intermittently. - cont to wean off Oxygen as tolerated, keeping O2 sats between 90-94%. she may need this ongoing - pt is on 3 liters of oxygen and cpap at night 3) HFpEF - compensated, in fact we may have diuresed too aggresively so on 04/17 d/c lasix. - pending echo. mention of tamponade on chest imaging. last echo 71% EF with indeterminate diastolic function in 10/19 - cont daily weights. fluid restriction held temporarily as her kidney function improved with fluid resuscitation. monitor this closely - restarting lasix per nephrology 4) hyperkalemia - mild, resolved after lasix administration 5) ABDIEL on CKD stage 3 - baseline CKD stage 3 w/ sCR 1.3-1.7. worsened after diuresis now improving after received gently fluids on 04/17. she did also have hypotensive episode on 04/15 when she was altered. Nephrology on board Renal function stable 6) severe macrocytic anemia -?reviewed notes from september 2022. she has elevated retic count. oncology consulted. she had been following as outpatient and had bone marrow biopsy 10/14/22. Haptoglobin within normal limit . she had EGD and and colonoscopy in september 2022 and required transfusion. mild gastritis, diverticulosis and hemorrhoids were observed.
--- NOTE | 2023-04-27 14:31 | PCPTNOTE ---
Attempted to see patient for PT, however patient declined due to discharge and R foot pain at 8.
== END 2023-04-27 15:35 | DRG 563 ==
LOC: ANHED 18:08 → ANH3MEDSUR 19:07 → ANH2MED 19:49 → ANHIMU 04-15 09:31 → ANH2MED 04-27 12:50 → ANHIMU 04-28 08:53
PROVIDERS: Family Medicine; General Practice; Hospitalist; Internal Medicine; Internal Medicine Hematology & Oncology; Internal Medicine Nephrology; Student in an Organized Health Care Education/Training Program; Admitting Provider Student in an Organized Health Care Education/Training Program; Emergency Provider Emergency Medicine; PCP Family Medicine; Visit Provider Family Medicine
DX: S82.891A Other fracture of right lower leg, initial encounter for closed fracture (principal); I13.0 Hypertensive heart and chronic kidney disease with heart failure and stage 1 through stage 4 chronic kidney disease, or unspecified chronic kidney disease; G93.40 Encephalopathy, unspecified; I50.32 Chronic diastolic (congestive) heart failure; N17.9 Acute kidney failure, unspecified; J96.11 Chronic respiratory failure with hypoxia; J96.12 Chronic respiratory failure with hypercapnia; Z68.42 Body mass index [BMI] 45.0-49.9, adult; S00.11XA Contusion of right eyelid and periocular area, initial encounter; W19.XXXA Unspecified fall, initial encounter; E11.22 Type 2 diabetes mellitus with diabetic chronic kidney disease; K21.9 Gastro-esophageal reflux disease without esophagitis; D63.1 Anemia in chronic kidney disease; D69.6 Thrombocytopenia, unspecified; E87.5 Hyperkalemia; E66.01 Morbid (severe) obesity due to excess calories; E55.9 Vitamin D deficiency, unspecified; E11.42 Type 2 diabetes mellitus with diabetic polyneuropathy; E78.5 Hyperlipidemia, unspecified; G89.29 Other chronic pain; G47.33 Obstructive sleep apnea (adult) (pediatric); H40.9 Unspecified glaucoma; I48.91 Unspecified atrial fibrillation; K31.819 Angiodysplasia of stomach and duodenum without bleeding; M81.0 Age-related osteoporosis without current pathological fracture; M54.9 Dorsalgia, unspecified; M48.061 Spinal stenosis, lumbar region without neurogenic claudication; M47.816 Spondylosis without myelopathy or radiculopathy, lumbar region; M10.9 Gout, unspecified; N18.32 Chronic kidney disease, stage 3b; Z91.199 Patient's noncompliance with other medical treatment and regimen due to unspecified reason; Z20.822 Contact with and (suspected) exposure to COVID-19; Z79.85 Long-term (current) use of injectable non-insulin antidiabetic drugs; Z79.4 Long term (current) use of insulin; Z99.89 Dependence on other enabling machines and devices; Z79.82 Long term (current) use of aspirin; Z79.01 Long term (current) use of anticoagulants; Z90.710 Acquired absence of both cervix and uterus; Z85.42 Personal history of malignant neoplasm of other parts of uterus; Z95.4 Presence of other heart-valve replacement; Z96.653 Presence of artificial knee joint, bilateral; Z98.41 Cataract extraction status, right eye; Z98.42 Cataract extraction status, left eye; Z90.49 Acquired absence of other specified parts of digestive tract; Z96.1 Presence of intraocular lens
CPT/HCPCS: 36415; 36430; 36600; 70450; 71045; 71046; 73590; 73610; 73630; 73721; 76775; 80048; 80053; 80307; 81001; 81050; 82140; 82274; 82550; 82570; 82607; 82728; 82746; 82805; 82948; 83010; 83036; 83540; 83550; 83605; 83615; 83735; 83880; 84100; 84145; 84156; 84300; 84484; 84540; 85014; 85018; 85025; 85027; 85999; 86850; 86880; 86900; 86901; 86923; 87040; 87086; 87088; 87637; 93005; 94002; 94003; 94640; 97110; 97161; 97166; 97530; 97535; 99285; A9270; C8929; J1756; J1815; J1940; J2270; J7030; J7050; P9016; Q5106; Q9957

== ENCOUNTER 2023-10-07 08:52 | Inpatient (IN) | payer MEDICARE, SELFPAY ==
[2023-10-07] VITALS (32 sets, daily range): BP systolic 114–171; BP diastolic 75–129; PULSE 86–139; RESP 16–28; TEMP 36.1–36.5; O2SAT 84–99
--- NOTE | ~2023-10-07 | US_ITS ---
EXAMINATION: US thoracentesis DATE: 10/10/2023 15:17 INDICATION: pleural effusion TECHNIQUE: The procedure and its risks, benefits, and alternatives were discussed with the patient. P otential risks discussed included bleeding, infection, and pneumothorax. The patient understood the r isks and agreed to proceed. The skin was prepped and draped in sterile fashion. 1% lidocaine was used for local anesthesia. Under ultrasound guidance, a 5 Fr catheter with trochar was advanced into the right pleural effusion. Fluid was aspirated. The catheter was removed, and a dressing was applied. Th ere were no immediate complications. FINDINGS: Ultrasound images demonstrate a right pleural effusion and the catheter within the fluid. IMPRESSION: 1. Successful ultrasound-guided thoracentesis yielding 1000 mL of kavita-colored fluid. Reviewed, dictated and finalized at location A. IMPRESSION: 1. Successful ultrasound-guided thoracentesis yielding 1000 mL of kavita-colore d fluid.
--- NOTE | ~2023-10-07 | CT_ITS ---
EXAMINATION:CT diagnostic chest wo con DATE: 10/07/2023 11:07 INDICATION: Shortness of breath. TECHNIQUE: Computed tomography (CT) of the chest was performed without intravenous contrast. Automate d exposure control and iterative reconstruction technique were employed. The dose-length product (DLP ) was 986.11 mGy-cm. COMPARISON: Chest CT 02/22/2023 FINDINGS: There are airspace opacities in the lungs with a dependent predominance, likely atelectasis . There is mild groundglass opacities in the lungs with smooth septal thickening, consistent with mil d pulmonary edema. There are moderate-sized right and small left pleural effusions. Cardiomegaly is n oted. There are changes of aortic valve replacement. There are coronary artery calcifications. There is a moderate-sized pericardial effusion. There are changes of cholecystectomy. There are healing henry ateral rib fractures. There is severe thoracic spondylosis. IMPRESSION: 1. Mild pulmonary edema. 2. Moderate-sized right and small left pleural effusions. 3. Cardiomegaly. 4. Chronic moderate-sized pericardial effusion. Reviewed, dictated and finalized at location A.
--- NOTE | ~2023-10-07 | US_ITS ---
EXAMINATION: US renal BI DATE: 10/15/2023 16:47 INDICATION: ABDIEL on CKD TECHNIQUE: Multiple grayscale and Doppler ultrasound images of the kidneys were obtained. COMPARISON: 04/22/2023 FINDINGS: The right kidney measures 12.2 x 6.0 x 5.9 cm. The left kidney measures 11.7 x 5.2 x 4.7 cm. Somewhat limited visualization of the right kidney. The kidneys demonstrate increased parenchymal echogenicit y. 1 cm simple left renal cyst There is no hydronephrosis. The bladder is not visualized. Small volum e right upper quadrant fluid. IMPRESSION: Medical renal disease. Small volume right upper quadrant ascites. Reviewed, dictated and finalized at location K.
--- NOTE | ~2023-10-07 | XR_ITS ---
EXAMINATION: XR chest 1V portable DATE: 10/18/2023 13:42 INDICATION: Congestive heart failure TECHNIQUE: frontal view of the chest was obtained. COMPARISON: Chest radiograph dated 10/15/2023 FINDINGS: Airspace opacities in the bilateral mid and lower lung zones consistent with moderate to large right and ykbcq-of-bxhlynhk left pleural effusions with associated atelectasis and/or pneumonia. No pneumot horax. Cardiomegaly. Aortic valve repair.. IMPRESSION: 1. Moderate to large right and ajuwj-lx-lqvzeiwz left pleural effusions with associated atelectasis a nd/or pneumonia in the mid and lower lung zones. 2. Cardiomegaly. Reviewed, dictated and finalized at location A. IMPRESSION: 1. Moderate to large right and kegpk-qe-gmxenglp left pleural effusions with as sociated atelectasis and/or pneumonia in the mid and lower lung zones. 2. Cardiomegaly.
--- NOTE | ~2023-10-07 | XR_ITS ---
EXAMINATION: XR chest 1V portable DATE: 10/15/2023 05:46 INDICATION: Congestive heart failure. TECHNIQUE: A single frontal view of the chest was obtained. COMPARISON: Chest single view 10/10/2023, chest CT 10/07/2023 FINDINGS: There are small pleural effusions. There are airspace opacities in the mid and lower lung z ones. No pneumothorax. There is enlargement of the cardiac silhouette. There are changes of aortic va lve replacement. IMPRESSION: 1. Stable airspace opacities in the mid and lower lung zones, consistent with atelectasis versus pneu monia. 2. Stable small pleural effusions. 3. Enlargement of the cardiac silhouette, likely a combination of cardiomegaly and pericardial effusi on. Reviewed, dictated and finalized at location A. IMPRESSION: 1. Stable airspace opacities in the mid and lower lung zones, consistent with a telectasis versus pneumonia. 2. Stable small pleural effusions. 3. Enlargement of the cardiac silhouette, likely a combination of cardiomegaly and pericardial effusion.
--- NOTE | ~2023-10-07 | XR_ITS ---
EXAMINATION: XR chest 1V portable DATE: 10/07/2023 10:13 INDICATION: Shortness of breath. TECHNIQUE: A single frontal view of the chest was obtained. COMPARISON: Chest single view 04/27/2023, thoracic spine CT 04/12/2023 FINDINGS: There are airspace opacities in the mid and lower lung zones. There are moderate-sized righ t and small left pleural effusions. No pneumothorax. There is enlargement of the cardiac silhouette. There are changes of aortic valve replacement. IMPRESSION: 1. Airspace opacities in the mid and lower lung zones with worsening on the right, consistent with at electasis versus pneumonia. 2. Moderate-sized right and small left pleural effusions with worsening on the right. 3. Enlargement of the cardiac silhouette, likely a combination of cardiomegaly and pericardial effusi on. Reviewed, dictated and finalized at location A. IMPRESSION: 1. Airspace opacities in the mid and lower lung zones with worsening on the rig ht, consistent with atelectasis versus pneumonia. 2. Moderate-sized right and small left pleural effusions with worsening on the right. 3. Enlargement of the cardiac silhouette, likely a combination of cardiomegaly and pericardial effusion.
--- NOTE | ~2023-10-07 | CT_ITS ---
EXAMINATION: CT brain wo con DATE: 10/07/2023 10:19 INDICATION: Transient alteration of awareness. Hallucinations. TECHNIQUE: Computed tomography (CT) of the head was performed without intravenous contrast. The mA wa s adjusted according to patient size. Iterative reconstruction technique was employed. The dose-lengt h product was 1437.67 mGy-cm. COMPARISON: Head CT 04/15/2023 FINDINGS: There is an old infarct in the left caudate nucleus. There are scattered areas of low atten uation in the cerebral white matter. There is no intracranial hemorrhage, acute infarction, or abnorm al intracranial mass lesion. The ventricles are normal in size. There are likely changes of ocular le ns replacement surgeries. The paranasal sinuses are clear. There are small bilateral mastoid effusion s. IMPRESSION: 1. 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 2. Stable moderate nonspecific cerebral white matter disease, which likely represents chronic small v essel ischemic disease. Reviewed, dictated and finalized at location A. IMPRESSION: 1. 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 2. Stable moderate nonspecific cerebral white matter disease, which likely repr esents chronic small vessel ischemic disease.
--- NOTE | ~2023-10-07 | XR_ITS ---
Portable chest x-ray Comparison: 10/19/2023 Clinical History: CHF, hypoxia Findings: Moderate right pleural effusion and uuwqs-og-ipfyjhyl left pleural effusion are present. T here is extensive probable right middle and lower lobe atelectasis. There is probable left lower lobe atelectatic change. There is mild to moderate pulmonary edema. Cardiomediastinal silhouette is stab le. Bones and soft tissues are unremarkable. Impression: Moderate right pleural effusion and vlxkh-qg-imoraizy left pleural effusion. Extensive bibasilar atelectasis, as above, and mild to moderate pulmonary edema. Stable cardiomegaly with aortic valve replacement. Pericardial effusion not excluded. Reviewed, dictated and finalized at location M. Impression: Moderate right pleural effusion and mmyqq-kk-imqrrfer left pleural effusion. Extensive bibasilar atelectasis, as above, and mild to moderate pulmonary edema . Stable cardiomegaly with aortic valve replacement. Pericardial effusion not exc luded.
--- NOTE | ~2023-10-07 | XR_ITS ---
Portable chest x-ray Comparison: 10/18/2023 Clinical History: CHF Findings: Moderate bilateral pleural effusions are present. There is moderate pulmonary edema patter n and bibasilar atelectasis. Cardiomediastinal silhouette is stable. Bones and soft tissues are unre markable. Impression: Moderate pleural effusions with moderate pulmonary edema pattern and bibasilar atelectasis. Stable probable cardiomegaly. Pericardial effusion not excluded. Reviewed, dictated and finalized at location M. Impression: Moderate pleural effusions with moderate pulmonary edema pattern and bibasilar atelectasis. Stable probable cardiomegaly. Pericardial effusion not excluded.
--- NOTE | ~2023-10-07 | XR_ITS ---
XR chest 2V DATE: 10/09/2023 12:53 INDICATION: Acute respiratory failure TECHNIQUE: 2 views COMPARISON: 10/07/2023 portable AP chest 5. Slight 02/2024 CT chest FINDINGS: Prominent enlargement of the cardiac silhouette due to cardiomegaly and small pericardial e ffusion documented on 10/07/2023 CT examination. There is pulmonary vascular congestion and redistribution. There are bilateral pulmonary infiltrates, with central and basilar predominance, greater on the right.. There is suggestion of moderate right and small left pleural effusion. No pneumothorax. Osteopenia. IMPRESSION: Congestive heart failure, pulmonary edema, pleural effusions, right greater than left Pneumonia and aspiration are not excluded Reviewed, dictated and finalized at location A.
--- NOTE | ~2023-10-07 | XR_ITS ---
EXAMINATION: [id number] DATE: 10/10/2023 15:23 INDICATION: Right pleural effusion status post thoracentesis. TECHNIQUE: A single frontal view of the chest was obtained. COMPARISON: Chest 2 views 10/09/2023 FINDINGS: There is a diffuse interstitial pattern, consistent with mild pulmonary edema. There are ai rspace opacities at the lung bases. There are small pleural effusions. No pneumothorax. There is enla rgement of the cardiac silhouette. There are changes of aortic valve replacement. IMPRESSION: 1. Small pleural effusions with improvement on the right status post thoracentesis. 2. Mild pulmonary edema. 3. Airspace opacities at the lung bases, consistent with atelectasis versus pneumonia. 4. Cardiomegaly. Reviewed, dictated and finalized at location A. IMPRESSION: 1. Small pleural effusions with improvement on the right status post thoracente sis. 2. Mild pulmonary edema. 3. Airspace opacities at the lung bases, consistent with atelectasis versus pne umonia. 4. Cardiomegaly.
--- NOTE | 2023-10-07 08:59 | ECG_ITS ---
SEE SCANNED COPY FOR CONFIRMED REPORT MTDD
--- NOTE | 2023-10-07 09:22 | ED.AMS ---
HPI - Altered Mental Status General Chief Complaint: Altered Mental Status <Lizzette Avalos PA-C - Last Filed: 10/07/23 19:20> Stated Complaint: confusion and hallucinations <JULIAN De Leon Last Filed: 10/07/23 19:20> Time Seen by Provider: 10/07/23 08:59 <JULIAN De Leon Last Filed: 10/07/23 19:20> Source: patient and old records reviewed <JULIAN De Leon Last Filed: 10/07/23 19:20> Mode of arrival: EMS <JULIAN De Leon Last Filed: 10/07/23 19:20> Limitations: no limitations <JULIAN De Leon Last Filed: 10/07/23 19:20> History of Present Illness HPI narrative: Patient is a 73 y/o female, with PMH of AFIB on Xarelto, COPD, CHF, pulmonary HTN, DM, who presents to the ED via EMS with report of SOB. Patient is a resident of [facility]. She reports she was recently diagnosed with RSV or COVID and has been in isolation at the [facility]. She has been feeling increasingly short of breath since then. Had increased oxygen demand at [facility] today. Typically wears 2L NC, was increased to 5L today. Patient states she has not been wearing her BiPAP at night lately because the staff does not put it on her. Per [facility] report, the patient has been confused and hallucinating over the last few days. Denies fever. Patient denies chest pain. Denies urinary complaints. <JULIAN De Leon Last Filed: 10/07/23 19:20> Related Data Home Medications: Home Medications Medication Instructions Recorded Confirmed diltiazem HCl 120 mg 180 mg PO DAILY 11/12/20 10/07/23 capsule,extended release 24 hr latanoprost 0.005 % eye drops 1 drp EACH EYE HS 11/12/20 10/07/23 cyanocobalamin (vitamin B-12) 1,000 mcg PO DAILY 05/16/21 10/07/23 1,000 mcg tablet fluticasone propionate 50 1 spray intranasal DAILY PRN 05/16/21 10/07/23 mcg/actuation nasal Congestion spray,suspension insulin aspart U-100 100 unit/mL See Rx Instructions subcut TID PRN 11/25/21 10/07/23 (3 mL) subcutaneous pen (Novolog Hyperglycemia FlexPen U-100 Insulin aspart) ascorbic acid (vitamin C) 1,000 mg 1,000 mg PO DAILY 10/13/22 10/07/23 tablet (Vitamin C) aspirin 81 mg tablet 81 mg PO DAILY 10/13/22 10/07/23 calcium carbonate 500 mg PO DAILY 10/13/22 10/07/23 cholecalciferol (vitamin D3) 25 1,000 mcg PO DAILY 10/13/22 10/07/23 mcg (1,000 unit) tablet (Vitamin D3) ferrous sulfate 325 mg (65 mg 325 mg PO HS 02/07/23 10/07/23 iron) tablet metoprolol succinate 200 mg 100 mg PO DAILY 02/07/23 10/07/23 tablet,extended release 24 hr montelukast 10 mg tablet 10 mg PO DAILY 02/07/23 10/07/23 rivaroxaban 20 mg tablet (Xarelto) 20 mg PO HS 02/07/23 10/07/23 sacubitril 24 mg-valsartan 26 mg 1 tablet PO BID 02/07/23 10/07/23 tablet (Entresto) Saccharomyces boulardii 250 mg 250 mg PO BID 10/07/23 10/07/23 capsule acetaminophen 325 mg tablet 650 mg PO Q6H PRN Pain 10/07/23 10/07/23 albuterol sulfate 90 mcg/actuation 2 puff inhalation Q4H PRN 10/07/23 10/07/23 aerosol inhaler shortness of breath or wheezing atorvastatin 10 mg tablet 10 mg PO HS 10/07/23 10/07/23 bisacodyl 10 mg rectal suppository 10 mg RECTAL DAILY PRN Constipation 10/07/23 10/07/23 buspirone 7.5 mg tablet 7.5 mg PO BID 10/07/23 10/07/23 dapagliflozin propanediol 5 mg 5 mg PO DAILY 10/07/23 10/07/23 tablet dulaglutide 1.5 mg/0.5 mL 0.5 mg subcut DAILY 10/07/23 10/07/23 [facility] duloxetine 30 mg capsule,delayed 30 mg PO DAILY 10/07/23 10/07/23 release sprinkle fluticasone fur. 100 mcg-umeclid 1 inh inhalation DAILY 10/07/23 10/07/23 62.5 mcg-vilant 25 mcg inhalat.powder (Trelegy Ellipta) furosemide 40 mg tablet 40 mg PO DAILY 10/07/23 10/07/23 guaifenesin 100 mg/5 mL oral liquid 200 mg PO Q4H PRN Cough 10/07/23 10/07/23 loperamide 2 mg capsule 2 mg PO Q4H PRN loose stools 10/07/23 10/07/23 magnesium citrate (Citrate of 300 ml PO DAILY PRN constipatioi
[2023-10-07 09:44] LABS: Basophils Percent Auto 0.4 % (0.2-1.2); Eosinophils Absolute Auto 0.1 K/mm3 (0-0.3); Eosinophils Percent Auto 1.7 % (0-4.4); Hematocrit 33.8 % (37.0-47.0); Hemoglobin 9.9 g/dL (12.0-15.0); Immature Granulocyte Absolute 0.09 K/mm3 (0.00-0.031); Immature Granulocyte Percent A 1.2 % (0-0.5); Lymphocytes Absolute Auto 0.45 K/mm3 (0.9-3.2); Lymphocytes Percent Auto 5.9 % (18.3-44.2); Mean Corpuscular HGB Conc 29.3 g/dl (32-36); Mean Corpuscular Hemoglobin 32.1 pg (26-34); Mean Corpuscular Volume 109.7 fl (80-100); Mean Platelet Volume 11.2 fl (7.4-10.4); Monocytes Absolute Auto 0.5 K/mm3 (0.1-0.6); Neutrophils Absolute Auto 6.4 K/mm3 (1.3-6.7); Neutrophils Percent Auto 83.8 % (45.5-73.1); Platelet Count Result 171 k/mm3 (150-375); Red Blood Count 3.08 M/mm3 (4.2-5.4); White Blood Count 7.6 K/mm3 (4.5-10.0)
[2023-10-07 09:54] LABS: Alanine Aminotransferase 16 U/L (6-35); Albumin Level 3.8 g/dL (3.5-5.1); Alkaline Phosphatase 93 U/L (38-126); Anion Gap 8 mmol/L (4-12); Aspartate Amino Transferase 23 U/L (14-36); Bilirubin,Total 0.6 mg/dL (0.2-1.3); Blood Urea Nitrogen 46 mg/dL (7-17); Calcium 9.2 mg/dL (8.4-10.2); Carbon Dioxide 32 mmol/L (22-30); Chloride 99 mmol/L (98-107); Estimated CRCL calculation 34 ml/min; Estimated Glomerular Filt Rate 26; Glucose 180 mg/dL (65-110); Lactic Acid Reflex 1.4 mmol/L (0.7-2.0); Potassium 3.8 mmol/L (3.4-5.0); Sodium 139 mmol/L (137-145)
[2023-10-07 09:55] LABS: Alveolar/Arterial O2 Gradient 156.6 mmHg; Base Excess ABG 3.1 mEq/l (+/-2.0); Carboxyhemoglobin 1.3 % THb (0-2.0); Fractional Inspired Oxygen 40 %; HCO3 ABG 30.2 mEq/l (22.0-26.0); Methemoglobin ABG 0.3 %THb (0-1.5); Oxygen Saturation ABG 88.6 % (95.0-100.0); PCO2 ABG 59.4 mmHg (35.0-45.0); PO2 ABG 60.3 mmHg (80.0-100.0); PO2 FiO2 Ratio Arterial Blood 1.51 %; Reduced Hemoglobin 10.4 %THb (0-5.0); Total Hemoglobin 10.5 g/dL (12.0-18.0); pH ABG 7.324 (7.350-7.450)
[2023-10-07 09:56] LABS: Device NASAL CANNULA; Modified Allen's Test Pass; Site Drawn RIGHT RADIAL
[2023-10-07 09:56] LABS: INR 2.1; Partial Thromboplastin Time 37.1 Seconds (22.3-36.8); Prothrombin Time 24.6 Seconds (11.1-14.7)
[2023-10-07 10:05] LABS: NT Pro B Type Natriuretic Pept 7610 pg/mL (19.9-100); Troponin I 0.016 ng/mL (0.000-0.034)
[2023-10-07 10:06] LABS: Appearance Urine Turbid (Clear); Bacteria Urine 4+ /hpf; Bilirubin Urine Negative (Negative); Blood Urine 2+ (Negative); Color Urine Yellow (Yellow); Glucose Urine UA Negative (Negative); Ketones Urine Negative (Negative); Leukocyte Esterase Ur 3+ LEU/UL (Negative); Need Manual Microscopic Reviewed; Nitrate Urine Positive (Negative); Protein Urine 1+ mg/dL (Negative); Specific Grav Ur 1.016 (1.001-1.035); Squamous Epithelial Cell Urine Many /hpf (Few); Urobilinogen Urine 0.2 mg/dL (<2.0); WBC Urine >100 /hpf (0-3)
[2023-10-07 10:08] LABS: Add Urine Microscopic? YES
[2023-10-07 10:12] LABS: Anisocytosis 1+; Hypochromasia 1+; Macrocytosis 1+ (NORMAL); Platelet Estimate Adequate (Adequate); Schistocytes None Seen
[2023-10-07 10:28] LABS: Amphetamine Screen Urine Negative (Negative); Barbiturate Screen Urine Negative (Negative); Benzodiazepines Screen Urine Negative (Negative); Cannabinoid Screen Urine Negative (Negative); Cocaine Screen Urine Negative (Negative); Methadone Screen Urine Negative (Negative); Opiate Screen Urine Negative (Negative); Phencyclidine Screen Urine Negative (Negative)
[2023-10-07 10:30] LABS: Influenza A QL RT-PCR Negative (Negative); Influenza B QL RT-PCR Negative (Negative); RSV RNA, RT-PCR Negative (Negative); SARS-CoV-2 RNA PCR Negative (Negative)
[2023-10-07] MEDS: METOPROLOL TARTRATE INJ 5 MG/5 ML VIAL IV PUSH (10:30)
[2023-10-07] MEDS: FUROSEMIDE INJ 40 MG/4 ML VIAL IV PUSH ×2 (11:36→21:27)
[2023-10-07] MEDS: dilTIAZem HCl INJ 25 MG/5 ML VIAL 10 MG IV PUSH (11:38)
[2023-10-07] MEDS: ACETAMINOPHEN 500 MG TABLET 1000 MG PO (11:50)
[2023-10-07] MEDS: dilTIAZem 100 MG/100 ML 100 MG/100 ML BAG IV CONT (12:26)
--- NOTE | 2023-10-07 12:47 | PC.NURSE ---
Spoke with US who states that per their physician, pt's INR too high for thoracentesis. States pt will need to hold xarelto x 24 hours and INR less than 1.85 for them to move forward with procedure. Constance Tian) states that pt's sister is their point of contact for updates per pt request. Pt is normally able to sign for herself and does not have official mPOA.
--- NOTE | 2023-10-07 14:11 | PC.NURSE ---
This patient, Laurel Rucker, was admitted to IMU Room 206-01. Patient/family oriented to hospital policies and general routines including ID bracelet, bed and alarms, visiting hours, pain management, procedures, bathroom and other care routines, personal items, smoking policy, room service/diet, and visiting hours. Information on how to activate the Rapid Response Team has been discussed. Patient/Family are encouraged to report perceived risks to care and to ask questions if they do not understand what they are told or what they should do.
[2023-10-07] MEDS: dilTIAZem 100 MG/100 ML 100 MG/100 ML BAG 10 MG IV CONT ×2 (14:40→21:27)
[2023-10-07 15:03] LABS: Base Excess ABG 4.1 mEq/l (+/-2.0); Fractional Inspired Oxygen 25 %; Modified Allen's Test Pass; Oxygen Content ABG 13.7 %vol (16.0-22.0); Oxygen Saturation ABG 93.6 % (95.0-100.0); Oxyhemoglobin 92.3 % THb (90.0-100.0); PCO2 ABG 51.6 mmHg (35.0-45.0); Site Drawn LEFT RADIAL; Total Hemoglobin 10.5 g/dL (12.0-18.0); pH ABG 7.382 (7.350-7.450)
[2023-10-07 15:04] LABS: Device NON-INVASIVE VENT; Non-Invasive Expiratory Pressure 6 CMH2O; Non-Invasive Inspiratory Pressure 12 CMH2O
[2023-10-07 16:35] LABS: Amylase 54 U/L (30-110); Bilirubin,Total 0.7 mg/dL (0.2-1.3); Cholesterol 97 mg/dL (0-200); Glucose 176 mg/dL (65-110); Lactate Dehydrogenase 234 U/L (120-246)
[2023-10-07 16:46] LABS: Troponin I 0.015 ng/mL (0.000-0.034)
--- NOTE | 2023-10-07 21:31 | PM.IMHP ---
H&P: HPI History of Present Illness Date/Time: 10/07/23 23:00 Chief Complaint: Hallucinations, Hypoxia Narrative: 73 y/o F presents here with hallucinations and hypoxia with PMH of AFib on Xarelto, COPD/asthma, diabetes, CHF, pulmonary hypertension, CKD stage 3, HTN, and ANNIE. Patient presented here via EMS from [facility] for further evaluation of hallucinations and hypoxia. Per EMS report to the ED, patient was recently diagnosed with RSV and has been in isolation. Has reportedly been feeling more short of breath. Patient requires 2 L nasal cannula at baseline, however was requiring 5 L nasal cannula to maintain saturations today. Patient also has history of ANNIE and has been prescribed a CPAP. Reports the facility has not been putting it on her at night so she has been noncompliant with it. residential reported to the EMS crew that she has been increasingly confused and hallucinating over the last 2-3 days. Patient currently not endorsing any complaints. Denying dysuria, urinary frequency, hematuria, or odor. Initial VS at presentation: 97.7? F, HR 101, RR 28, 84% on RA. Placed on nasal cannula and was titrated up to 5 L, now requiring BiPAP. ED workup showed: No leukocytosis, hemoglobin 9.9 (at baseline), INR 2.1, creatinine 1.9 and GFR 26 (previously 1.6 and GFR 31 on 04/27/2023), BNP 7610. UA consistent with UTI. UDS negative. Viral PCR negative for flu, RSV, COVID. CXR showed airspace opacities, moderate right and small left pleural effusions, enlargement of the cardiac silhouette. Head CT showed chronic findings and age related changes. Chest CT showed mild pulmonary edema, moderate right sided pleural effusion, small left-sided pleural effusion, cardiomegaly, and chronic moderate sized pericardial effusion. Review of Systems Review of Systems: All systems reviewed & are unremarkable except as noted in HPI and below PMFSH Past Medical History Medical History Accidental fall from bed Adenomatous colon polyp Ankle fracture Aortic stenosis (~2017) status post aortic valve replacement(09/18) Arthritis (~2009) Asthma Calcification of left breast on mammography Chronic anticoagulation Chronic back pain CKD (chronic kidney disease) stage 3, GFR 30-59 ml/min CKD stage 3 due to type 2 diabetes mellitus (~05/2019) With history of temporary dialysis during lengthy hospitalization Colon, diverticulosis Diastolic congestive heart failure (~2018) Most recent echo April 2020. Mild LVH. EF 60%. Mild mitral valve regurgitation Diverticulitis Essential (primary) hypertension External hemorrhoids without complication Fracture of posterior malleolus of right tibia Frequent falls GAVE (gastric antral vascular ectasia) Noted on EGD 12/2020 GERD without esophagitis Glaucoma Gout Hyperlipidemia (~2009) Hypertensive heart and chronic kidney disease with heart failure and stage 1 through stage 4 chronic kidney disease, or unspecified chronic kidney disease Intramuscular hematoma Lumbar spondylosis Lung nodule seen on imaging study Major depressive disorder, recurrent, unspecified Moderate pulmonary hypertension Obstructive sleep apnea (~2014) Osteoporosis Peripheral neuropathy Positive colorectal cancer screening using Cologuard test Postmenopausal Pulmonary nodule Toe fracture lt great toe fx. Type 2 diabetes mellitus with diabetic nephropathy, with long-term current use of insulin Unspecified asthma with status asthmaticus Uterine cancer Status post hysterectomy. Vitamin D deficiency Surgical History Surgical History H/O colonoscopy with polypectomy History of heart surgery 08/2021, heart valve replacement History of total bilateral knee replacement History of tracheostomy After lengthy hospitalization in 2014. Hx of bilateral cataract extraction Status post appendectomy Status post cataract e
[2023-10-07 22:23] LABS: Glucose Point of Care 197 mg/dl (65-105)
[2023-10-08] VITALS (25 sets, daily range): BP systolic 100–152; BP diastolic 56–97; PULSE 70–128; RESP 16–24; TEMP 36.1–37.1; O2SAT 88–100
[2023-10-08] MEDS: MEROPENEM 2 GM in SODIUM CHLORIDE 0.9% IV 100 ML IVPB ×2 (00:16→13:23)
[2023-10-08] MEDS: ACETAMINOPHEN 325 MG TABLET 650 MG PO ×2 (02:37→18:11)
[2023-10-08 03:53] LABS: Hemoglobin A1C 5.6 % (<5.7)
[2023-10-08 04:41] LABS: Basophils Absolute Auto 0.1 K/mm3 (0.0-0.1); Basophils Percent Auto 0.9 % (0.2-1.2); Eosinophils Absolute Auto 0.2 K/mm3 (0-0.3); Eosinophils Percent Auto 2.7 % (0-4.4); Hemoglobin 8.9 g/dL (12.0-15.0); Immature Granulocyte Absolute 0.07 K/mm3 (0.00-0.031); Immature Granulocyte Percent A 1.3 % (0-0.5); Lymphocytes Absolute Auto 0.51 K/mm3 (0.9-3.2); Lymphocytes Percent Auto 9.2 % (18.3-44.2); Mean Corpuscular HGB Conc 28.7 g/dl (32-36); Mean Corpuscular Hemoglobin 31.3 pg (26-34); Mean Corpuscular Volume 109.2 fl (80-100); Mean Platelet Volume 10.8 fl (7.4-10.4); Monocytes Absolute Auto 0.6 K/mm3 (0.1-0.6); Neutrophils Absolute Auto 4.1 K/mm3 (1.3-6.7); Neutrophils Percent Auto 74.9 % (45.5-73.1); Platelet Count Result 149 k/mm3 (150-375); Red Blood Count 2.84 M/mm3 (4.2-5.4); Red Cell Distribution Width 17.2 % (11.5-14.5); White Blood Count 5.5 K/mm3 (4.5-10.0)
[2023-10-08 04:51] LABS: INR 1.6; Prothrombin Time 19.6 Seconds (11.1-14.7)
[2023-10-08 04:53] LABS: Partial Thromboplastin Time 34.2 Seconds (22.3-36.8)
[2023-10-08 04:55] LABS: Alanine Aminotransferase 12 U/L (6-35); Albumin Level 3.2 g/dL (3.5-5.1); Alkaline Phosphatase 76 U/L (38-126); Anion Gap 2 mmol/L (4-12); Aspartate Amino Transferase 18 U/L (14-36); Bilirubin,Total 0.6 mg/dL (0.2-1.3); Blood Urea Nitrogen 42 mg/dL (7-17); Calcium 8.8 mg/dL (8.4-10.2); Carbon Dioxide 35 mmol/L (22-30); Chloride 102 mmol/L (98-107); Estimated CRCL calculation 36 ml/min; Estimated Glomerular Filt Rate 27; Glucose 166 mg/dL (65-110); Potassium 3.5 mmol/L (3.4-5.0); Sodium 139 mmol/L (137-145)
[2023-10-08 05:10] LABS: Anisocytosis 1+; Hypochromasia 1+; Platelet Estimate Adequate (Adequate); Schistocytes None Seen
[2023-10-08 08:17] LABS: Glucose Point of Care 178 mg/dl (65-105)
[2023-10-08] MEDS: dilTIAZem 100 MG/100 ML 100 MG/100 ML BAG 10 MG IV CONT (08:45)
[2023-10-08] MEDS: FLUTICASONE/UMECLIDIN/VILANTER 100-62.5-25 MCG ELLIPTA 1 PUFF INHALATION (09:17)
[2023-10-08] MEDS: MULTIVITAMINS THERAPEUTIC TAB (*BKC) 1 TABLET PO (09:39)
[2023-10-08] MEDS: CYANOCOBALAMIN 1,000 MCG TABLET 1000 MCG PO (09:39)
[2023-10-08] MEDS: DULoxetine HCL 30 MG CAPSULE.DR PO (09:39)
[2023-10-08] MEDS: METOPROLOL SUCCINATE EXT REL 100 MG TABCR PO (09:39)
[2023-10-08] MEDS: PANTOPRAZOLE 40 MG TABLET PO (09:39)
[2023-10-08] MEDS: ASCORBIC ACID 500 MG TABLET 1000 MG PO (09:40)
[2023-10-08] MEDS: MONTELUKAST SODIUM 10 MG TABLET PO (09:40)
[2023-10-08] MEDS: TAMSULOSIN HCL 0.4 MG CAPSULE PO (09:40)
[2023-10-08] MEDS: ASPIRIN 81 MG ENTERIC TABLET PO (09:40)
[2023-10-08] MEDS: SACUBITRIL/VALSARTAN 24-26 MG TABLET 1 TAB PO ×2 (09:41→21:21)
[2023-10-08] MEDS: CALCIUM CARBONATE (OSCAL) 500 MG TABLET PO (09:41)
[2023-10-08] MEDS: SACCHAROMYCES BOULARDII 250 MG CAPSULE PO ×2 (09:41→17:56)
[2023-10-08] MEDS: busPIRone HCL 2.5 MG TABLET 7.5 MG PO ×2 (09:44→17:57)
[2023-10-08] MEDS: FUROSEMIDE INJ 40 MG/4 ML VIAL IV PUSH ×2 (09:45→21:21)
[2023-10-08] MEDS: CHOLECALCIFEROL 1,000 UNITS TABLET 1000 UNITS PO (09:45)
[2023-10-08] MEDS: TRIAMCINOLONE ACET 0.1% OINT 15 GM TUBE 1 APPLIC TOPICAL ×2 (10:00→17:57)
[2023-10-08 11:45] LABS: Glucose Point of Care 228 mg/dl (65-105)
[2023-10-08 14:21] LABS: Glucose Point of Care 180 mg/dl (65-105)
--- NOTE | 2023-10-08 16:42 | PM.IMPN ---
Progress Note: A&P Assessment and Plan (1) Acute on chronic respiratory failure with hypoxia and hypercapnia: Code(s): J96.21 - Acute and chronic respiratory failure with hypoxia; J96.22 - Acute and chronic respiratory failure with hypercapnia Status: Acute Assessment and Plan: 10/07/23: - CXR: 1. Airspace opacities in the mid and lower lung zones with worsening on the right, consistent with atelectasis versus pneumonia. 2.. Moderate-sized right and small left pleural effusions with worsening on the right. 3. Enlargement of the cardiac silhouette, likely a combination of cardiomegaly and pericardial effusion. - CT chest: - ABG, initial: pH 7.324, pCO2 59.4, pO2 60.3, HCO3 30.2, O2 sat 88.6% on 5L NC. - ABG, repeat: pH 7.382, pCO2 51.6, pO2 70, HCO3 30, O2 sat 93.6% on BiPAP. - placed on BiPAP in ED, continuing - continue home inhalers: Albuterol and Trelegy - plan for diagnostic thoracentesis of the right moderate pleural effusion, holding Xarelto for 24-48 hours prior to procedure. SCDs started in lieu of anticoagulation. - DDx: CHF exacerbation, worsening pleural effusion, PNA. suspect CHF exacerbation/worsening pleural effusion in combination with recent viral illness. 10/08/23: Continue with current treatment plan (2) Altered mental status: Qualifiers: Altered mental status type: disorientation Qualified Code(s): R41.0 - Disorientation, unspecified Code(s): R41.82 - Altered mental status, unspecified Status: Acute Assessment and Plan: 10/07/23: - CT head: 1. 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 2. Stable moderate nonspecific cerebral white matter disease, which likely represents chronic small vessel ischemic disease. - UA consistent with UTI - CO2 initially 59.4, improving on BiPAP and currently 51.6 - suspect ulceration is multifactorial, i.e. UTI, hypoxia, hypercapnia. treat underlying pathologies. - neuro checks Q shift 10/08/23: Continue neuro checks Currently alert oriented x3 (3) Atrial fibrillation with rapid ventricular response: Code(s): I48.91 - Unspecified atrial fibrillation Status: Acute Assessment and Plan: 5/10/24: - hx of pAFib - continue metoprolol 100 mg ER daily. hold dilt 120 mg ER PO daily and Xarelto 20 mg daily (due to plan for thoracentesis). - started on diltiazem gtt, currently at 10 mg/hr - SCDs - telemetry monitoring 10/08/23: Continue Cardizem drip, orders to increase to 15mg/hr Continue IMU status (4) Acute exacerbation of CHF (congestive heart failure): Qualifiers: Heart failure type: unspecified Qualified Code(s): I50.9 - Heart failure, unspecified Code(s): I50.9 - Heart failure, unspecified Status: Acute Assessment and Plan: 10/07/23: - BNP 7610 - most recent echo (03/2023): 1. Technically challenging echocardiogram because of obesity/definity contrast utilized. 2. Left ventricular hypertrophy with hyperdynamic systolic function. 3. Severe left atrial enlargement. 4. Calcified mitral valve annulus. 5. Sclerotic aortic valve which is nonstenotic. 6. Atrial fibrillation. 7. Small circumferential pericardial effusion. - update echo - currently on: Lasix 40 mg PO daily, continue as 40 IVP BID - daily weights - monitor I&Os - trend renal function 10/08/23: Continue IV Lasix 40 mg b.i.d. Will recheck BNP in the morning No change to current treatment plan (5) UTI (urinary tract infection): Qualifiers: Hematuria presence: with hematuria Urinary tract infection type: acute cystitis Qualified Code(s): N30.01 - Acute cystitis with hematuria Code(s): N39.0 - Urinary tract infection, site not specified Status: Acute Assessment and Plan: 10/07/23: - UA: Turbid, 1+ protein, 2+ blood, positive nitrates, 3+ leuks, 6-10 RBC, greater than 100 WBC, many epithelial cells, 4+ bacteria. May be contaminated. - UC obtained on 10/06
[2023-10-08] MEDS: LOPERAMIDE HCL 2 MG CAPSULE PO (17:57)
[2023-10-08] MEDS: dilTIAZem 100 MG/100 ML 100 MG/100 ML BAG 15 MG IV CONT (18:04)
[2023-10-08] MEDS: SALINE 0.65% NAS SOLN 44 ML BTL 1 SPRAY NASAL (18:15)
[2023-10-08 18:19] LABS: Glucose Point of Care 214 mg/dl (65-105)
[2023-10-08 18:34] LABS: Glucose Point of Care 209 mg/dl (65-105)
[2023-10-08 19:36] LABS: Glucose Point of Care 185 mg/dl (65-105)
[2023-10-08] MEDS: ATORVASTATIN 10 MG TABLET PO (21:21)
[2023-10-08] MEDS: FERROUS SULFATE 325 MG TABLET DR PO (21:21)
[2023-10-08] MEDS: LATANOPROST 0.005% OP SOLN 2.5 ML BTL 1 DROP EACH EYE (21:21)
[2023-10-09] VITALS (33 sets, daily range): BP systolic 102–139; BP diastolic 61–84; PULSE 81–129; RESP 16–24; TEMP 36.4–37.1; O2SAT 90–96
[2023-10-09] MEDS: MEROPENEM 2 GM in SODIUM CHLORIDE 0.9% IV 100 ML IVPB (00:02)
[2023-10-09] MEDS: dilTIAZem 100 MG/100 ML 100 MG/100 ML BAG 15 MG IV CONT ×4 (01:11→22:26)
[2023-10-09] MEDS: ACETAMINOPHEN 325 MG TABLET 650 MG PO ×2 (04:24→21:22)
[2023-10-09 04:34] LABS: Basophils Percent Auto 0.5 % (0.2-1.2); Eosinophils Absolute Auto 0.2 K/mm3 (0-0.3); Eosinophils Percent Auto 2.4 % (0-4.4); Hematocrit 30.4 % (37.0-47.0); Immature Granulocyte Absolute 0.07 K/mm3 (0.00-0.031); Immature Granulocyte Percent A 1.1 % (0-0.5); Lymphocytes Absolute Auto 0.56 K/mm3 (0.9-3.2); Lymphocytes Percent Auto 8.5 % (18.3-44.2); Mean Corpuscular HGB Conc 29.6 g/dl (32-36); Mean Corpuscular Hemoglobin 32.3 pg (26-34); Mean Platelet Volume 10.5 fl (7.4-10.4); Monocytes Absolute Auto 0.7 K/mm3 (0.1-0.6); Monocytes Percent Auto 10.2 % (2.6-8.5); Neutrophils Absolute Auto 5.1 K/mm3 (1.3-6.7); Neutrophils Percent Auto 77.3 % (45.5-73.1); Platelet Count Result 151 k/mm3 (150-375); Red Blood Count 2.79 M/mm3 (4.2-5.4); Red Cell Distribution Width 17.2 % (11.5-14.5); White Blood Count 6.6 K/mm3 (4.5-10.0)
[2023-10-09 04:50] LABS: Alanine Aminotransferase 11 U/L (6-35); Alkaline Phosphatase 69 U/L (38-126); Anion Gap 3 mmol/L (4-12); Aspartate Amino Transferase 16 U/L (14-36); Bilirubin,Total 0.6 mg/dL (0.2-1.3); Blood Urea Nitrogen 42 mg/dL (7-17); Calcium 8.7 mg/dL (8.4-10.2); Carbon Dioxide 33 mmol/L (22-30); Chloride 105 mmol/L (98-107); Estimated CRCL calculation 40 ml/min; Estimated Glomerular Filt Rate 31; Glucose 179 mg/dL (65-110); Potassium 3.4 mmol/L (3.4-5.0); Sodium 141 mmol/L (137-145)
[2023-10-09 04:52] LABS: INR 1.2
[2023-10-09 04:55] LABS: Macrocytosis 1+ (NORMAL); Platelet Estimate Adequate (Adequate)
[2023-10-09 04:56] LABS: Schistocytes None Seen
[2023-10-09 04:57] LABS: NT Pro B Type Natriuretic Pept 4810 pg/mL (19.9-100)
[2023-10-09 05:09] LABS: Hemoglobin A1C 5.6 % (<5.7)
[2023-10-09 08:33] LABS: Glucose Point of Care 179 mg/dl (65-105)
[2023-10-09] MEDS: FLUTICASONE/UMECLIDIN/VILANTER 100-62.5-25 MCG ELLIPTA 1 PUFF INHALATION (09:01)
[2023-10-09] MEDS: SACUBITRIL/VALSARTAN 24-26 MG TABLET 1 TAB PO ×2 (10:02→21:23)
[2023-10-09] MEDS: DULoxetine HCL 30 MG CAPSULE.DR PO (10:02)
[2023-10-09] MEDS: TAMSULOSIN HCL 0.4 MG CAPSULE PO (10:02)
[2023-10-09] MEDS: METOPROLOL SUCCINATE EXT REL 100 MG TABCR PO (10:02)
[2023-10-09] MEDS: ASPIRIN 81 MG ENTERIC TABLET PO (10:02)
[2023-10-09] MEDS: CYANOCOBALAMIN 1,000 MCG TABLET 1000 MCG PO (10:02)
[2023-10-09] MEDS: SACCHAROMYCES BOULARDII 250 MG CAPSULE PO ×2 (10:02→18:09)
[2023-10-09] MEDS: MULTIVITAMINS THERAPEUTIC TAB (*BKC) 1 TABLET PO (10:02)
[2023-10-09] MEDS: ASCORBIC ACID 500 MG TABLET 1000 MG PO (10:02)
[2023-10-09] MEDS: CALCIUM CARBONATE (OSCAL) 500 MG TABLET PO (10:02)
[2023-10-09] MEDS: CHOLECALCIFEROL 1,000 UNITS TABLET 1000 UNITS PO (10:02)
[2023-10-09] MEDS: PANTOPRAZOLE 40 MG TABLET PO (10:03)
[2023-10-09] MEDS: FUROSEMIDE INJ 40 MG/4 ML VIAL IV PUSH ×2 (10:03→21:23)
[2023-10-09] MEDS: TRIAMCINOLONE ACET 0.1% OINT 15 GM TUBE 1 APPLIC TOPICAL ×2 (10:03→18:09)
[2023-10-09] MEDS: busPIRone HCL 2.5 MG TABLET 7.5 MG PO ×2 (10:03→18:09)
[2023-10-09] MEDS: MONTELUKAST SODIUM 10 MG TABLET PO (10:03)
[2023-10-09 11:10] LABS: Glucose Point of Care 227 mg/dl (65-105)
--- NOTE | 2023-10-09 12:57 | PM.IMPN ---
Progress Note: A&P Assessment and Plan (1) Acute on chronic respiratory failure with hypoxia and hypercapnia: Code(s): J96.21 - Acute and chronic respiratory failure with hypoxia; J96.22 - Acute and chronic respiratory failure with hypercapnia Status: Acute Assessment and Plan: Suspect multifactorial due to exacerbation of CHF and possible pneumonia -CT chest shows mild pulmonary edema and moderate right and small left pleural effusions with moderate size pericardial effusion -repeat chest x-ray done today, right side looks a little worse -will continue Lasix 40 mg IV b.i.d. (she takes 40 mg at home orally). will add daily potassium -patient is incontinent, unable to estimate intake and output -will consult Cardiology due to acute exacerbation of CHF and pericardial effusion -continue home oxygen to keep oxygen greater than 90 -utilize BiPAP while sleeping -patient states she has a recent history of viral illness (RSV) although are viral panel was negative. Due to her history, possible secondary bacterial pneumonia could be playing a part. Will stop meropenem (was on for UTI) and start ceftriaxone and azithromycin -thoracentesis ordered, check procalcitonin (2) Altered mental status: Qualifiers: Altered mental status type: disorientation Qualified Code(s): R41.0 - Disorientation, unspecified Code(s): R41.82 - Altered mental status, unspecified Status: Acute Assessment and Plan: 10/09/23-resolved 10/07/23: - CT head: 1. 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 2. Stable moderate nonspecific cerebral white matter disease, which likely represents chronic small vessel ischemic disease. - UA consistent with UTI - CO2 initially 59.4, improving on BiPAP and currently 51.6 - suspect ulceration is multifactorial, i.e. UTI, hypoxia, hypercapnia. treat underlying pathologies. - neuro checks Q shift 10/08/23: Continue neuro checks Currently alert oriented x3 (3) Atrial fibrillation with rapid ventricular response: Code(s): I48.91 - Unspecified atrial fibrillation Status: Acute Assessment and Plan: 10/09/23-Improving, although still has a heart rate of high end of normal -consult cardiology -continue diltiazem drip and telemetry monitoring -Eliquis held due to thoracentesis tomorrow, will restart once this is complete 10/07/23: - hx of pAFib - continue metoprolol 100 mg ER daily. hold dilt 120 mg ER PO daily and Xarelto 20 mg daily (due to plan for thoracentesis). - started on diltiazem gtt, currently at 10 mg/hr - SCDs - telemetry monitoring 10/08/23: Continue Cardizem drip, orders to increase to 15mg/hr Continue IMU status (4) Acute exacerbation of CHF (congestive heart failure): Qualifiers: Heart failure type: unspecified Qualified Code(s): I50.9 - Heart failure, unspecified Code(s): I50.9 - Heart failure, unspecified Status: Acute Assessment and Plan: 10/09/23: -As above 10/07/23: - BNP 7610 on admission and improving - most recent echo (03/2023): 1. Technically challenging echocardiogram because of obesity/definity contrast utilized. 2. Left ventricular hypertrophy with hyperdynamic systolic function. 3. Severe left atrial enlargement. 4. Calcified mitral valve annulus. 5. Sclerotic aortic valve which is nonstenotic. 6. Atrial fibrillation. 7. Small circumferential pericardial effusion. - update echo - currently on: Lasix 40 mg PO daily, continue as 40 IVP BID - daily weights - monitor I&Os - trend renal function 10/08/23: Continue IV Lasix 40 mg b.i.d. Will recheck BNP in the morning No change to current treatment plan (5) UTI (urinary tract infection): Qualifiers: Hematuria presence: with hematuria Urinary tract infection type: acute cystitis Qualified Code(s): N30.01 - Acute cystitis with hematuria Code(s): N39.0 - Urinary tract infection, site not specified
[2023-10-09] MEDS: INSULIN ASPART (*BKC) 100 UNITS/ML SUB-Q ×2 (13:24→18:09)
[2023-10-09] MEDS: AZITHROMYCIN 500 MG/NS 250 ML 500 MG/250 ML BAG 250 MG IVPB (13:25)
[2023-10-09] MEDS: LOPERAMIDE HCL 2 MG CAPSULE PO (13:25)
[2023-10-09] MEDS: POTASSIUM CHLORIDE 20 MEQ ER TABLET PO (13:37)
[2023-10-09 17:58] LABS: Glucose Point of Care 220 mg/dl (65-105)
[2023-10-09 20:22] LABS: Glucose Point of Care 212 mg/dl (65-105)
[2023-10-09] MEDS: FLUTICASONE PROPIONATE 0.05% NA SPR 16 GM BTL (*BKC) 1 SPRAY NASAL (21:23)
[2023-10-09] MEDS: FERROUS SULFATE 325 MG TABLET DR PO (21:23)
[2023-10-09] MEDS: ATORVASTATIN 10 MG TABLET PO (21:23)
[2023-10-09] MEDS: LATANOPROST 0.005% OP SOLN 2.5 ML BTL 1 DROP EACH EYE (21:23)
[2023-10-10] VITALS (33 sets, daily range): BP systolic 92–125; BP diastolic 52–88; PULSE 60–101; RESP 17–20; TEMP 36.1–36.8; O2SAT 88–100
[2023-10-10 04:54] LABS: Basophils Percent Auto 0.5 % (0.2-1.2); Eosinophils Absolute Auto 0.3 K/mm3 (0-0.3); Eosinophils Percent Auto 3.2 % (0-4.4); Hematocrit 34.4 % (37.0-47.0); Hemoglobin 9.8 g/dL (12.0-15.0); Immature Granulocyte Absolute 0.05 K/mm3 (0.00-0.031); Immature Granulocyte Percent A 0.6 % (0-0.5); Lymphocytes Absolute Auto 0.57 K/mm3 (0.9-3.2); Lymphocytes Percent Auto 7.3 % (18.3-44.2); Mean Corpuscular HGB Conc 28.5 g/dl (32-36); Mean Corpuscular Hemoglobin 31.5 pg (26-34); Mean Corpuscular Volume 110.6 fl (80-100); Mean Platelet Volume 10.4 fl (7.4-10.4); Monocytes Absolute Auto 0.9 K/mm3 (0.1-0.6); Monocytes Percent Auto 10.9 % (2.6-8.5); Neutrophils Percent Auto 77.5 % (45.5-73.1); Platelet Count Result 150 k/mm3 (150-375); Red Blood Count 3.11 M/mm3 (4.2-5.4); Red Cell Distribution Width 17.2 % (11.5-14.5); White Blood Count 7.8 K/mm3 (4.5-10.0)
[2023-10-10 05:12] LABS: Alanine Aminotransferase 11 U/L (6-35); Albumin Level 3.3 g/dL (3.5-5.1); Alkaline Phosphatase 71 U/L (38-126); Anion Gap 6 mmol/L (4-12); Aspartate Amino Transferase 16 U/L (14-36); Bilirubin,Total 0.5 mg/dL (0.2-1.3); Blood Urea Nitrogen 39 mg/dL (7-17); Calcium 8.9 mg/dL (8.4-10.2); Carbon Dioxide 34 mmol/L (22-30); Chloride 103 mmol/L (98-107); Estimated CRCL calculation 38 ml/min; Estimated Glomerular Filt Rate 29; Glucose 173 mg/dL (65-110); Potassium 3.5 mmol/L (3.4-5.0); Sodium 143 mmol/L (137-145)
[2023-10-10 05:21] LABS: Platelet Estimate Adequate (Adequate)
[2023-10-10 05:23] LABS: Hypochromasia 1+
[2023-10-10 05:24] LABS: Anisocytosis 1+; Macrocytosis 1+ (NORMAL); Schistocytes None Seen
[2023-10-10] MEDS: dilTIAZem 100 MG/100 ML 100 MG/100 ML BAG 15 MG IV CONT ×3 (05:36→21:36)
[2023-10-10 05:38] LABS: Procalcitonin 0.2 ng/mL
[2023-10-10] MEDS: FLUTICASONE/UMECLIDIN/VILANTER 100-62.5-25 MCG ELLIPTA 1 PUFF INHALATION (07:47)
[2023-10-10 08:19] LABS: Glucose Point of Care 166 mg/dl (65-105)
[2023-10-10] MEDS: ACETAMINOPHEN 325 MG TABLET 650 MG PO ×3 (09:14→21:34)
[2023-10-10] MEDS: MULTIVITAMINS THERAPEUTIC TAB (*BKC) 1 TABLET PO (09:15)
[2023-10-10] MEDS: CALCIUM CARBONATE (OSCAL) 500 MG TABLET PO (09:15)
[2023-10-10] MEDS: CHOLECALCIFEROL 1,000 UNITS TABLET 1000 UNITS PO (09:15)
[2023-10-10] MEDS: PANTOPRAZOLE 40 MG TABLET PO (09:15)
[2023-10-10] MEDS: busPIRone HCL 2.5 MG TABLET 7.5 MG PO ×2 (09:15→17:57)
[2023-10-10] MEDS: ASPIRIN 81 MG ENTERIC TABLET PO (09:15)
[2023-10-10] MEDS: METOPROLOL SUCCINATE EXT REL 100 MG TABCR PO (09:15)
[2023-10-10] MEDS: TAMSULOSIN HCL 0.4 MG CAPSULE PO (09:15)
[2023-10-10] MEDS: MONTELUKAST SODIUM 10 MG TABLET PO (09:15)
[2023-10-10] MEDS: PREGABALIN (*CRX) 50 MG CAPSULE PO (09:16)
[2023-10-10] MEDS: SACCHAROMYCES BOULARDII 250 MG CAPSULE PO ×2 (09:16→17:57)
[2023-10-10] MEDS: DULoxetine HCL 30 MG CAPSULE.DR PO (09:16)
[2023-10-10] MEDS: SACUBITRIL/VALSARTAN 24-26 MG TABLET 1 TAB PO ×2 (09:16→21:34)
[2023-10-10] MEDS: TRIAMCINOLONE ACET 0.1% OINT 15 GM TUBE 1 APPLIC TOPICAL ×2 (09:16→17:57)
[2023-10-10] MEDS: CYANOCOBALAMIN 1,000 MCG TABLET 1000 MCG PO (09:16)
[2023-10-10] MEDS: ASCORBIC ACID 500 MG TABLET 1000 MG PO (09:16)
[2023-10-10] MEDS: FUROSEMIDE INJ 40 MG/4 ML VIAL IV PUSH ×2 (09:16→21:34)
[2023-10-10] MEDS: POTASSIUM CHLORIDE 20 MEQ ER TABLET PO (09:16)
--- NOTE | 2023-10-10 09:38 | PM.IMPN ---
Progress Note: A&P Assessment and Plan (1) Acute on chronic respiratory failure with hypoxia and hypercapnia: Code(s): J96.21 - Acute and chronic respiratory failure with hypoxia; J96.22 - Acute and chronic respiratory failure with hypercapnia Status: Acute Assessment and Plan: 10/07/23: - CXR: 1. Airspace opacities in the mid and lower lung zones with worsening on the right, consistent with atelectasis versus pneumonia. 2.. Moderate-sized right and small left pleural effusions with worsening on the right. 3. Enlargement of the cardiac silhouette, likely a combination of cardiomegaly and pericardial effusion. - CT chest: - ABG, initial: pH 7.324, pCO2 59.4, pO2 60.3, HCO3 30.2, O2 sat 88.6% on 5L NC. - ABG, repeat: pH 7.382, pCO2 51.6, pO2 70, HCO3 30, O2 sat 93.6% on BiPAP. - placed on BiPAP in ED, continuing - continue home inhalers: Albuterol and Trelegy - plan for diagnostic thoracentesis of the right moderate pleural effusion, holding Xarelto for 24-48 hours prior to procedure.? SCDs started in lieu of anticoagulation. - DDx: CHF exacerbation, worsening pleural effusion, PNA. suspect CHF exacerbation/worsening pleural effusion in combination with recent viral illness. 10/08/23: Continue with current treatment plan 10/09/23: Suspect multifactorial due to exacerbation of CHF and possible pneumonia -CT chest shows mild pulmonary edema and moderate right and small left pleural effusions with moderate size pericardial effusion -repeat chest x-ray done today, right side looks a little worse -will continue Lasix 40 mg IV b.i.d. (she takes 40 mg at home orally). will add daily potassium -patient is incontinent, unable to estimate intake and output -will consult Cardiology due to acute exacerbation of CHF and pericardial effusion -continue home oxygen to keep oxygen greater than 90 -utilize BiPAP while sleeping -patient states she has a recent history of viral illness (RSV) although are viral panel was negative. Due to her history, possible secondary bacterial pneumonia could be playing a part. Will stop meropenem (was on for UTI) and start ceftriaxone and azithromycin -thoracentesis ordered, check procalcitonin 10/10/23: Continue Lasix 40 mg IV b.i.d. Cardiology consulted Continue Rocephin and azithromycin IV today and then switch over to cefdinir and azithromycin oral tomorrow Thoracentesis today Patient was refusing echocardiogram today (2) Pneumonia: Code(s): J18.9 - Pneumonia, unspecified organism Status: Inactive Assessment and Plan: 10/10/23: Chest x-ray from 10/09/2023 showing congestive heart failure, pulmonary edema, pleural effusion with the right being greater than the left, bilateral pulmonary infiltrates with central and basilar predominance greater on the right Patient started on Rocephin and azithromycin yesterday we will switch to oral cefdinir and azithromycin tomorrow due to NPO status Cardiology following Plan for thoracentesis today (3) Atrial fibrillation with rapid ventricular response: Code(s): I48.91 - Unspecified atrial fibrillation Status: Acute Assessment and Plan: 10/07/23: - hx of pAFib - continue metoprolol 100 mg ER daily. hold dilt 120 mg ER PO daily and Xarelto 20 mg daily (due to plan for thoracentesis). - started on diltiazem gtt, currently at 10 mg/hr - SCDs - telemetry monitoring 10/08/23: Continue Cardizem drip, orders to increase to 15mg/hr Continue IMU status 10/09/23 -Improving, although still has a heart rate of high end of normal -consult cardiology -continue diltiazem drip and telemetry monitoring -Eliquis held due to thoracentesis tomorrow, will restart once this is complete 10/10/23: Heart rate controlled in the upper 80s to 90s Currently still on Cardizem drip Continue IMU status Cardiology following Eliquis remains on hold for thoracentesis today (4) Acute exacerbation of CHF (congestive heart failure):
--- NOTE | 2023-10-10 10:12 | PM.CNCAR ---
Assessment and Plan Assessment and plan (1) Atrial fibrillation with rapid ventricular response: Code(s): I48.91 - Unspecified atrial fibrillation Status: Acute Assessment and Plan: History of atrial fibrillation rate controlled and on anticoagulation. Having AF with RVR now, rate intermittently controlled Continuous diltiazem gtt, but decrease to 10mg/hr. Hope to wean this off and use metoprolol alone. Increase metoprolol to 50mg q8h She is anticoagulated with Xarelto which is being held for thoracentesis. Resume after thora Continue telemetry (2) Acute exacerbation of CHF (congestive heart failure): Qualifiers: Heart failure type: unspecified Qualified Code(s): I50.9 - Heart failure, unspecified Code(s): I50.9 - Heart failure, unspecified Status: Acute Assessment and Plan: Acute on chronic diastolic heart failure. Improving with IV diuresis. Continue furosemide 40mg bid for now Thoracentesis today Daily weights Monitor intake & output (3) CKD (chronic kidney disease): Qualifiers: Chronic kidney disease stage: unspecified stage Qualified Code(s): N18.9 - Chronic kidney disease, unspecified Code(s): N18.9 - Chronic kidney disease, unspecified Status: Chronic Assessment and Plan: Stable (4) Hypertension: Code(s): I10 - Essential (primary) hypertension Status: Chronic Assessment and Plan: At goal. Continue current medical regimen. History of Present Illness History of Present Illness Consult date/time: 10/10/23 10:12 Requesting physician: Lizzette Salmon PA-C Consult reason: congestive heart failure Reason For Visit: Acute Hypoxic/Hypercapnic Resp Failure/CHF/UTI Narrative: Laurel Rucker is a 73-year-old female with severe , status post TAVR, heart failure with preserved ejection fraction, atrial fibrillation, hypertension, dyslipidemia, and chronic kidney disease. This is a patient who is followed in our office by Dr. Bai. She was seen for routine follow-up visit 5 02/17/2024 at which time she reported dyspnea with any physical exertion. Her diuretic had recently been decreased by a provider at her skilled rehab facility because of concerns about her renal function. Overall, she appeared to be stable and she was instructed to continue her medical regimen without change. She was brought to the emergency department after staff at her nursing facility noted her to be short of breath and apparently was experiencing hallucinations and confusion. [facility] Past Medical History Medical History Accidental fall from bed Adenomatous colon polyp Ankle fracture Aortic stenosis (~2017) status post aortic valve replacement(09/18) Arthritis (~2009) Asthma Calcification of left breast on mammography Chronic anticoagulation Chronic back pain CKD (chronic kidney disease) stage 3, GFR 30-59 ml/min CKD stage 3 due to type 2 diabetes mellitus (~05/2019) With history of temporary dialysis during lengthy hospitalization Colon, diverticulosis Diastolic congestive heart failure (~2018) Most recent echo April 2020. Mild LVH. EF 60%. Mild mitral valve regurgitation Diverticulitis Essential (primary) hypertension External hemorrhoids without complication Fracture of posterior malleolus of right tibia Frequent falls GAVE (gastric antral vascular ectasia) Noted on EGD 12/2020 GERD without esophagitis Glaucoma Gout Hyperlipidemia (~2009) Hypertensive heart and chronic kidney disease with heart failure and stage 1 through stage 4 chronic kidney disease, or unspecified chronic kidney disease Intramuscular hematoma Lumbar spondylosis Lung nodule seen on imaging study Major depressive disorder, recurrent, unspecified Moderate pulmonary hypertension Obstructive sleep apnea (~2014) Osteoporosis Peripheral neuropathy Positive colorectal cancer screening using [place]
[2023-10-10 10:19] LABS: INR 1.1
[2023-10-10] MEDS: AZITHROMYCIN 500 MG/NS 250 ML 500 MG/250 ML BAG 250 MG IVPB (10:59)
[2023-10-10 12:24] LABS: Glucose Point of Care 188 mg/dl (65-105)
--- NOTE | 2023-10-10 12:37 | PC.NURSE ---
Patient refused to have Echo completed today. GIGI Santamaria aware, will notify cardiology.
[2023-10-10 16:40] LABS: Glucose Point of Care 189 mg/dl (65-105)
[2023-10-10 20:58] LABS: Glucose Point of Care 272 mg/dl (65-105)
[2023-10-10] MEDS: METOPROLOL TARTRATE 50 MG TAB PO (21:34)
[2023-10-10] MEDS: FERROUS SULFATE 325 MG TABLET DR PO (21:34)
[2023-10-10] MEDS: ATORVASTATIN 10 MG TABLET PO (21:34)
[2023-10-10] MEDS: INSULIN ASPART (*BKC) 100 UNITS/ML SUB-Q (21:35)
[2023-10-10] MEDS: LATANOPROST 0.005% OP SOLN 2.5 ML BTL 1 DROP EACH EYE (21:38)
[2023-10-11] VITALS (29 sets, daily range): BP systolic 92–113; BP diastolic 42–90; PULSE 70–111; RESP 16–20; TEMP 36.1–36.6; O2SAT 91–98
[2023-10-11] MEDS: dilTIAZem 100 MG/100 ML 100 MG/100 ML BAG 15 MG IV CONT (03:30)
[2023-10-11 04:34] LABS: Basophils Percent Auto 0.3 % (0.2-1.2); Eosinophils Absolute Auto 0.2 K/mm3 (0-0.3); Eosinophils Percent Auto 3.6 % (0-4.4); Hematocrit 30.1 % (37.0-47.0); Hemoglobin 8.8 g/dL (12.0-15.0); Immature Granulocyte Absolute 0.06 K/mm3 (0.00-0.031); Immature Platelet Fraction Pct 4.9 % (0.9-11.2); Lymphocytes Absolute Auto 0.45 K/mm3 (0.9-3.2); Lymphocytes Percent Auto 7.3 % (18.3-44.2); Mean Corpuscular HGB Conc 29.2 g/dl (32-36); Mean Corpuscular Hemoglobin 32.4 pg (26-34); Mean Corpuscular Volume 110.7 fl (80-100); Mean Platelet Volume 10.8 fl (7.4-10.4); Monocytes Absolute Auto 0.7 K/mm3 (0.1-0.6); Monocytes Percent Auto 11.5 % (2.6-8.5); Neutrophils Absolute Auto 4.7 K/mm3 (1.3-6.7); Neutrophils Percent Auto 76.3 % (45.5-73.1); Platelet Count Result 130 k/mm3 (150-375); Red Blood Count 2.72 M/mm3 (4.2-5.4); White Blood Count 6.2 K/mm3 (4.5-10.0)
[2023-10-11 04:46] LABS: Alanine Aminotransferase 9 U/L (6-35); Albumin Level 2.8 g/dL (3.5-5.1); Alkaline Phosphatase 58 U/L (38-126); Anion Gap 1 mmol/L (4-12); Aspartate Amino Transferase 16 U/L (14-36); Bilirubin,Total 0.4 mg/dL (0.2-1.3); Blood Urea Nitrogen 46 mg/dL (7-17); Calcium 8.6 mg/dL (8.4-10.2); Carbon Dioxide 34 mmol/L (22-30); Chloride 104 mmol/L (98-107); Estimated CRCL calculation 36 ml/min; Estimated Glomerular Filt Rate 27; Glucose 173 mg/dL (65-110); Sodium 139 mmol/L (137-145)
[2023-10-11 05:14] LABS: Platelet Estimate Decreased (Adequate)
[2023-10-11 05:15] LABS: Anisocytosis 1+; Hypochromasia 1+; Macrocytosis 1+ (NORMAL); Schistocytes None Seen; Stomatocytes 1+
[2023-10-11] MEDS: METOPROLOL TARTRATE 50 MG TAB PO ×3 (05:39→21:02)
[2023-10-11] MEDS: FLUTICASONE/UMECLIDIN/VILANTER 100-62.5-25 MCG ELLIPTA 1 PUFF INHALATION (08:09)
[2023-10-11 08:29] LABS: Glucose Point of Care 186 mg/dl (65-105)
[2023-10-11] MEDS: TAMSULOSIN HCL 0.4 MG CAPSULE PO (09:26)
[2023-10-11] MEDS: PANTOPRAZOLE 40 MG TABLET PO (09:26)
[2023-10-11] MEDS: DULoxetine HCL 30 MG CAPSULE.DR PO (09:26)
[2023-10-11] MEDS: SACUBITRIL/VALSARTAN 24-26 MG TABLET 1 TAB PO ×2 (09:26→20:37)
[2023-10-11] MEDS: FUROSEMIDE INJ 40 MG/4 ML VIAL IV PUSH ×2 (09:26→20:37)
[2023-10-11] MEDS: CALCIUM CARBONATE (OSCAL) 500 MG TABLET PO (09:26)
[2023-10-11] MEDS: CEFDINIR 300 MG CAPSULE PO ×2 (09:26→20:37)
[2023-10-11] MEDS: ASPIRIN 81 MG ENTERIC TABLET PO (09:26)
[2023-10-11] MEDS: ASCORBIC ACID 500 MG TABLET 1000 MG PO (09:26)
[2023-10-11] MEDS: CYANOCOBALAMIN 1,000 MCG TABLET 1000 MCG PO (09:26)
[2023-10-11] MEDS: SACCHAROMYCES BOULARDII 250 MG CAPSULE PO ×2 (09:26→17:14)
[2023-10-11] MEDS: POTASSIUM CHLORIDE 20 MEQ ER TABLET PO (09:26)
[2023-10-11] MEDS: MONTELUKAST SODIUM 10 MG TABLET PO (09:26)
[2023-10-11] MEDS: busPIRone HCL 2.5 MG TABLET 7.5 MG PO ×2 (09:26→17:14)
[2023-10-11] MEDS: CHOLECALCIFEROL 1,000 UNITS TABLET 1000 UNITS PO (09:27)
[2023-10-11] MEDS: PREGABALIN (*CRX) 50 MG CAPSULE PO (09:27)
[2023-10-11] MEDS: MULTIVITAMINS THERAPEUTIC TAB (*BKC) 1 TABLET PO (09:27)
[2023-10-11] MEDS: ACETAMINOPHEN 325 MG TABLET 650 MG PO ×3 (09:27→20:37)
[2023-10-11] MEDS: TRIAMCINOLONE ACET 0.1% OINT 15 GM TUBE 1 APPLIC TOPICAL ×2 (09:28→17:14)
--- NOTE | 2023-10-11 09:41 | PM.PNCARD ---
Progress Note: A&P Assessment and Plan (1) Atrial fibrillation with rapid ventricular response: Code(s): I48.91 - Unspecified atrial fibrillation Status: Acute Assessment and Plan: History of atrial fibrillation rate controlled and on anticoagulation. Having AF with RVR now, rate intermittently controlled Discontinue diltiazem today Continue metoprolol 50mg q8h. Id rate remains controlled, can shift back to ToprolXL tomorrow She is anticoagulated with Xarelto. This should be resumed. Continue telemetry (2) Acute exacerbation of CHF (congestive heart failure): Qualifiers: Heart failure type: unspecified Qualified Code(s): I50.9 - Heart failure, unspecified Code(s): I50.9 - Heart failure, unspecified Status: Acute Assessment and Plan: Acute on chronic diastolic heart failure. Improved with IV diuresis and thoracentesis Will shift to p.o. furosemide today Thoracentesis yesterday with 1L fluid removed Daily weights Monitor intake & output (3) CKD (chronic kidney disease): Qualifiers: Chronic kidney disease stage: unspecified stage Qualified Code(s): N18.9 - Chronic kidney disease, unspecified Code(s): N18.9 - Chronic kidney disease, unspecified Status: Chronic Assessment and Plan: Stable (4) Hypertension: Code(s): I10 - Essential (primary) hypertension Status: Chronic Assessment and Plan: At goal. Continue current medical regimen. Subjective Date/time seen: 10/11/23 09:41 Interval history: Cardiology follow up for CHF, AFib Date of service 10/11/2023: Feeling much better following thoracentesis. Breathing significantly improved. Rate is controlled today. Exam Const: General: comfortable, no acute distress, alert and awake Orientation/consciousness: patient oriented x3 HENMT: Head: normal to inspection Eyes: General: appearance normal, both eyes and all related structures Pupils: Equal, round and reactive pupils present Neck: Neck: normal visual inspection and supple Carotids: normal carotid upstroke Other: Unable to assess for JVD due to body habitus Resp: Effort & Inspection: normal respiratory effort Auscultation: not clear to auscultation bilaterally and rales Cardio: Rate: regular rate Rhythm: abnormal rhythm irregularly irregular Heart sounds: S1 normal heart sound present, S2 normal heart sound present and Murmur heart sound present systolic GI: Auscultation: normal bowel sounds Skin: General skin exam: normal color Neuro: General: patient oriented x3 Cranial nerves: Yes Equal, round and reactive pupils present Extrem: General: abnormal to inspection Other: Edema Psych: Appearance: grossly normal Mental Status: mental status grossly normal Objective Data Vital Signs Vital Signs: Vital Signs - 24 hr 10/10/23 10:00 10/10/23 10:30 10/10/23 10:00 Temperature 36.4 C Pulse Rate 60 60 93 Respiratory Rate 18 Blood Pressure 105/54 L 105/54 L Pulse Oximetry 92 Oxygen Delivery Oxygen Flow Rate Fraction of Inspired Oxygen 10/10/23 12:00 10/10/23 12:33 10/10/23 12:34 Temperature 36.4 C L Pulse Rate 90 90 90 Respiratory Rate 20 Blood Pressure 97/62 L 97/62 L 97/62 L Pulse Oximetry 91 Oxygen Delivery Oxygen Flow Rate Fraction of Inspired Oxygen 10/10/23 14:00 10/10/23 14:30 10/10/23 12:00 Temperature 36.6 C Pulse Rate 98 98 96 Respiratory Rate 20 Blood Pressure 109/68 109/68 Pulse Oximetry 99 Oxygen Delivery Oxygen Flow Rate Fraction of Inspired Oxygen 10/10/23 14:00 10/10/23 12:00 10/10/23 16:00 Temperature 36.8 C Pulse Rate 90 90 Respiratory Rate 20 Blood Pressure 94/57 L Pulse Oximetry 91 98 Oxygen Delivery Nasal Cannula Oxygen Flow Rate 5 Fraction of Inspired Oxygen 10/10/23 16:00 10/10/23 18:00 10/10/23 16:00 Temperature Pulse Rate 84 75 Respiratory Rate
--- NOTE | 2023-10-11 10:41 | PM.IMPN ---
Progress Note: A&P Assessment and Plan (1) Acute on chronic respiratory failure with hypoxia and hypercapnia: Code(s): J96.21 - Acute and chronic respiratory failure with hypoxia; J96.22 - Acute and chronic respiratory failure with hypercapnia Status: Acute (2) Atrial fibrillation with rapid ventricular response: Code(s): I48.91 - Unspecified atrial fibrillation Status: Acute (3) Acute exacerbation of CHF (congestive heart failure): Qualifiers: Heart failure type: unspecified Qualified Code(s): I50.9 - Heart failure, unspecified Code(s): I50.9 - Heart failure, unspecified Status: Acute Plan (1) Acute on chronic respiratory failure with hypoxia and hypercapnia: ?Code(s): J96.21 - Acute and chronic respiratory failure with hypoxia; J96.22 - Acute and chronic respiratory failure with hypercapnia ?Status:?Acute ?Assessment and Plan: 10/07/23: - CXR: 1. Airspace opacities in the mid and lower lung zones with worsening on the right, consistent with atelectasis versus pneumonia. 2.. Moderate-sized right and small left pleural effusions with worsening on the right. 3. Enlargement of the cardiac silhouette, likely a combination of cardiomegaly and pericardial effusion. - CT chest: - ABG, initial: pH 7.324, pCO2 59.4, pO2 60.3, HCO3 30.2, O2 sat 88.6% on 5L NC. - ABG, repeat: pH 7.382, pCO2 51.6, pO2 70, HCO3 30, O2 sat 93.6% on BiPAP. - placed on BiPAP in ED, continuing - continue home inhalers: Albuterol and Trelegy - plan for diagnostic thoracentesis of the right moderate pleural effusion, holding Xarelto for 24-48 hours prior to procedure.? SCDs started in lieu of anticoagulation. - DDx: CHF exacerbation, worsening pleural effusion, PNA. suspect CHF exacerbation/worsening pleural effusion in combination with recent viral illness. 10/08/23: Continue with current treatment plan 10/09/23: Suspect multifactorial due to exacerbation of CHF and possible pneumonia -CT chest shows mild pulmonary edema and moderate right and small left pleural effusions with moderate size pericardial effusion -repeat chest x-ray done today, right side looks a little worse -will continue Lasix 40 mg IV b.i.d. (she takes 40 mg at home orally). will add daily potassium -patient is incontinent, unable to estimate intake and output -will consult Cardiology due to acute exacerbation of CHF and pericardial effusion -continue home oxygen to keep oxygen greater than 90 -utilize BiPAP while sleeping -patient states she has a recent history of viral illness (RSV) although are viral panel was negative.? Due to her history, possible secondary bacterial pneumonia could be playing a part.? Will stop meropenem (was on for UTI) and start ceftriaxone and azithromycin -thoracentesis ordered, check procalcitonin 10/10/23: Continue Lasix 40 mg IV b.i.d. Cardiology consulted Continue Rocephin and azithromycin IV today and then switch over to cefdinir and azithromycin oral tomorrow Thoracentesis today Patient was refusing echocardiogram today (2) Pneumonia: ?Code(s): J18.9 - Pneumonia, unspecified organism ?Status:?Inactive ?Assessment and Plan: 10/10/23: Chest x-ray from 10/09/2023 showing congestive heart failure, pulmonary edema, pleural effusion with the right being greater than the left, bilateral pulmonary infiltrates with central and basilar predominance greater on the right Patient started on Rocephin and azithromycin yesterday we will switch to oral cefdinir and azithromycin tomorrow due to NPO status Cardiology following Plan for thoracentesis today(3) Atrial fibrillation with rapid ventricular response: ?Code(s): I48.91 - Unspecified atrial fibrillation ?Status:?Acute ?Assessment and Plan: 10/07/23: - hx of pAFib - continue metoprolol 100 mg ER daily.? hold dilt 120 mg ER PO daily and Xarelto 20 mg daily (due to plan for thoracentesis). - started on diltiazem [place]
[2023-10-11] MEDS: INSULIN ASPART (*BKC) 100 UNITS/ML SUB-Q ×3 (12:19→21:02)
[2023-10-11 12:22] LABS: Glucose Point of Care 240 mg/dl (65-105)
[2023-10-11] MEDS: VANCOMYCIN 1,250 MG/NS 250 ML 1,250 MG/250 ML BAG 166.67 MG IVPB ×2 (12:23→14:36)
--- NOTE | 2023-10-11 13:29 | PM.CNPUL ---
Assessment and Plan Assessment and plan (1) Acute on chronic respiratory failure with hypoxia and hypercapnia: Code(s): J96.21 - Acute and chronic respiratory failure with hypoxia; J96.22 - Acute and chronic respiratory failure with hypercapnia Status: Acute Assessment and Plan: A 73-year-old female patient with morbid obesity and obstructive sleep apnea, who has been non-compliant with her BiPAP support, was admitted with symptoms of shortness of breath, bilateral pleural effusion, mild pulmonary edema, and acute on chronic hypercapnic respiratory failure. The patient appears to be responding to the current treatment plan, which includes ventilatory support with BiPAP, supplemental oxygen, and diuretics. She has also undergone a thoracentesis, although no fluid analysis is currently available. The patient's current hospitalization was triggered by congestive heart failure along with bilateral pleural effusions. She has a known history of sleep apnea and secondary pulmonary hypertension. Her untreated sleep apnea is also a contributing factor to her congestive heart failure. Treatment Plan: I am in agreement with the current BiPAP support using pressures of 16/8, which is slightly lower than the pressures recommended by her sleep study (BiPAP 17/12). I propose maintaining the current pressures of 16/8, along with supplemental oxygen, and gradually increasing the BiPAP pressures to 17/12 over the next few days. This will help the patient acclimate to the therapeutic BiPAP pressures needed for her sleep apnea. I will consider conducting an ApneaLink study before she is discharged. I had an extensive discussion with the patient and her sister, who was present at her bedside, about the importance of using BiPAP support at night due to her severe sleep apnea. I will continue to monitor the patient's respiratory status in conjunction with you. (2) Acute exacerbation of CHF (congestive heart failure): Qualifiers: Heart failure type: unspecified Qualified Code(s): I50.9 - Heart failure, unspecified Code(s): I50.9 - Heart failure, unspecified Status: Acute (3) Chronic respiratory failure with hypoxia and hypercapnia: Code(s): J96.11 - Chronic respiratory failure with hypoxia; J96.12 - Chronic respiratory failure with hypercapnia Status: Acute (4) History of chronic CHF: Code(s): Z86.79 - Personal history of other diseases of the circulatory system Status: Acute (5) Type 2 diabetes mellitus with diabetic nephropathy, with long-term current use of insulin: Code(s): E11.21 - Type 2 diabetes mellitus with diabetic nephropathy; 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 Status: Chronic (6) Diastolic congestive heart failure: Onset Date: ~2018 Qualifiers: Heart failure chronicity: chronic Qualified Code(s): I50.32 - Chronic diastolic (congestive) heart failure Code(s): I50.30 - Unspecified diastolic (congestive) heart failure Status: Chronic (7) Aortic stenosis: Onset Date: ~2017 Qualifiers: Cardiac valve disease etiology: etiology unspecified Qualified Code(s): I35.0 - Nonrheumatic aortic (valve) stenosis Code(s): I35.0 - Nonrheumatic aortic (valve) stenosis Status: Chronic (8) Obstructive sleep apnea: Onset Date: ~2014 Code(s): G47.33 - Obstructive sleep apnea (adult) (pediatric) Status: Chronic (9) Morbid obesity: Onset Date: ~2009 Code(s): E66.01 - Morbid (severe) obesity due to excess calories Status: Chronic (10) Chronic kidney disease, stage 3: Onset Date: ~05/2019 Qualifiers: Chronic kidney disease stage 3 subtype: stage 3b (GFR 30-44) Qualified Code(s): N18.32 - Chronic kidney disease, stage 3b Code(s): N18.3 - Chronic kidney disease, stage 3 (moderate) Status: Chronic History of Present Illness History of Present Illness Consult
[2023-10-11 14:00] LABS: MRSA (PCR) NOT DETECTED (NOT DETECTE)
[2023-10-11 16:37] LABS: Glucose Point of Care 227 mg/dl (65-105)
[2023-10-11] MEDS: FERROUS SULFATE 325 MG TABLET DR PO (20:37)
[2023-10-11] MEDS: ATORVASTATIN 10 MG TABLET PO (20:37)
[2023-10-11] MEDS: LATANOPROST 0.005% OP SOLN 2.5 ML BTL 1 DROP EACH EYE (20:39)
[2023-10-11 20:42] LABS: Glucose Point of Care 238 mg/dl (65-105)
[2023-10-12] VITALS (24 sets, daily range): BP systolic 87–127; BP diastolic 47–93; PULSE 71–114; RESP 16–20; TEMP 36.1–36.6; O2SAT 94–98
[2023-10-12 04:21] LABS: Basophils Percent Auto 0.4 % (0.2-1.2); Eosinophils Absolute Auto 0.3 K/mm3 (0-0.3); Eosinophils Percent Auto 3.8 % (0-4.4); Hematocrit 31.7 % (37.0-47.0); Hemoglobin 9.1 g/dL (12.0-15.0); Immature Granulocyte Absolute 0.05 K/mm3 (0.00-0.031); Immature Granulocyte Percent A 0.7 % (0-0.5); Immature Platelet Fraction Pct 6.3 % (0.9-11.2); Lymphocytes Absolute Auto 0.35 K/mm3 (0.9-3.2); Lymphocytes Percent Auto 5.1 % (18.3-44.2); Mean Corpuscular HGB Conc 28.7 g/dl (32-36); Mean Corpuscular Hemoglobin 32.2 pg (26-34); Monocytes Absolute Auto 0.6 K/mm3 (0.1-0.6); Monocytes Percent Auto 9.2 % (2.6-8.5); Neutrophils Absolute Auto 5.5 K/mm3 (1.3-6.7); Neutrophils Percent Auto 80.8 % (45.5-73.1); Platelet Count Result 132 k/mm3 (150-375); Red Blood Count 2.83 M/mm3 (4.2-5.4); Red Cell Distribution Width 16.5 % (11.5-14.5); White Blood Count 6.8 K/mm3 (4.5-10.0)
[2023-10-12 04:32] LABS: Alanine Aminotransferase 9 U/L (6-35); Albumin Level 2.7 g/dL (3.5-5.1); Alkaline Phosphatase 67 U/L (38-126); Anion Gap 1 mmol/L (4-12); Aspartate Amino Transferase 20 U/L (14-36); Bilirubin,Total 0.3 mg/dL (0.2-1.3); Blood Urea Nitrogen 51 mg/dL (7-17); Calcium 8.3 mg/dL (8.4-10.2); Carbon Dioxide 35 mmol/L (22-30); Chloride 102 mmol/L (98-107); Estimated CRCL calculation 27 ml/min; Estimated Glomerular Filt Rate 20; Glucose 204 mg/dL (65-110); Potassium 4.1 mmol/L (3.4-5.0); Sodium 138 mmol/L (137-145)
[2023-10-12 04:44] LABS: Anisocytosis 1+; Platelet Estimate Decreased (Adequate)
[2023-10-12 04:45] LABS: Hypochromasia 1+; Ovalocytes 1+; Schistocytes None Seen
[2023-10-12] MEDS: ACETAMINOPHEN 325 MG TABLET 650 MG PO ×4 (05:39→20:20)
[2023-10-12] MEDS: METOPROLOL TARTRATE 50 MG TAB PO ×2 (05:39→20:19)
[2023-10-12] MEDS: FLUTICASONE/UMECLIDIN/VILANTER 100-62.5-25 MCG ELLIPTA 1 PUFF INHALATION (08:05)
[2023-10-12 08:15] LABS: Glucose Point of Care 192 mg/dl (65-105)
[2023-10-12] MEDS: FUROSEMIDE INJ 40 MG/4 ML VIAL IV PUSH (08:51)
[2023-10-12] MEDS: TAMSULOSIN HCL 0.4 MG CAPSULE PO (08:54)
[2023-10-12] MEDS: AZITHROMYCIN 250 MG TABLET 500 MG PO (08:54)
[2023-10-12] MEDS: DULoxetine HCL 30 MG CAPSULE.DR PO (08:54)
[2023-10-12] MEDS: CALCIUM CARBONATE (OSCAL) 500 MG TABLET PO (08:54)
[2023-10-12] MEDS: busPIRone HCL 2.5 MG TABLET 7.5 MG PO ×2 (08:54→16:48)
[2023-10-12] MEDS: SACCHAROMYCES BOULARDII 250 MG CAPSULE PO ×2 (08:55→16:46)
[2023-10-12] MEDS: MONTELUKAST SODIUM 10 MG TABLET PO (08:55)
[2023-10-12] MEDS: ASCORBIC ACID 500 MG TABLET 1000 MG PO (08:55)
[2023-10-12] MEDS: ASPIRIN 81 MG ENTERIC TABLET PO (08:55)
[2023-10-12] MEDS: POTASSIUM CHLORIDE 20 MEQ ER TABLET PO (08:55)
[2023-10-12] MEDS: PANTOPRAZOLE 40 MG TABLET PO (08:55)
[2023-10-12] MEDS: SACUBITRIL/VALSARTAN 24-26 MG TABLET 1 TAB PO ×2 (08:55→20:19)
[2023-10-12] MEDS: CYANOCOBALAMIN 1,000 MCG TABLET 1000 MCG PO (08:56)
[2023-10-12] MEDS: CHOLECALCIFEROL 1,000 UNITS TABLET 1000 UNITS PO (08:56)
[2023-10-12] MEDS: MULTIVITAMINS THERAPEUTIC TAB (*BKC) 1 TABLET PO (08:56)
[2023-10-12] MEDS: CEFDINIR 300 MG CAPSULE PO ×2 (08:56→20:19)
[2023-10-12] MEDS: TRIAMCINOLONE ACET 0.1% OINT 15 GM TUBE 1 APPLIC TOPICAL ×2 (09:12→16:51)
--- NOTE | 2023-10-12 09:46 | PM.IMPN ---
Progress Note: A&P Assessment and Plan (1) Acute on chronic respiratory failure with hypoxia and hypercapnia: Code(s): J96.21 - Acute and chronic respiratory failure with hypoxia; J96.22 - Acute and chronic respiratory failure with hypercapnia Status: Acute (2) Atrial fibrillation with rapid ventricular response: Code(s): I48.91 - Unspecified atrial fibrillation Status: Acute (3) Acute exacerbation of CHF (congestive heart failure): Qualifiers: Heart failure type: unspecified Qualified Code(s): I50.9 - Heart failure, unspecified Code(s): I50.9 - Heart failure, unspecified Status: Acute Plan (1) Acute on chronic respiratory failure with hypoxia and hypercapnia: ?Code(s): J96.21 - Acute and chronic respiratory failure with hypoxia; J96.22 - Acute and chronic respiratory failure with hypercapnia ?Status:?Acute ?Assessment and Plan: 10/07/23: - CXR: 1. Airspace opacities in the mid and lower lung zones with worsening on the right, consistent with atelectasis versus pneumonia. 2.. Moderate-sized right and small left pleural effusions with worsening on the right. 3. Enlargement of the cardiac silhouette, likely a combination of cardiomegaly and pericardial effusion. - CT chest: - ABG, initial: pH 7.324, pCO2 59.4, pO2 60.3, HCO3 30.2, O2 sat 88.6% on 5L NC. - ABG, repeat: pH 7.382, pCO2 51.6, pO2 70, HCO3 30, O2 sat 93.6% on BiPAP. - placed on BiPAP in ED, continuing - continue home inhalers: Albuterol and Trelegy - plan for diagnostic thoracentesis of the right moderate pleural effusion, holding Xarelto for 24-48 hours prior to procedure.? SCDs started in lieu of anticoagulation. - DDx: CHF exacerbation, worsening pleural effusion, PNA. suspect CHF exacerbation/worsening pleural effusion in combination with recent viral illness. 10/08/23: Continue with current treatment plan 10/09/23: Suspect multifactorial due to exacerbation of CHF and possible pneumonia -CT chest shows mild pulmonary edema and moderate right and small left pleural effusions with moderate size pericardial effusion -repeat chest x-ray done today, right side looks a little worse -will continue Lasix 40 mg IV b.i.d. (she takes 40 mg at home orally). will add daily potassium -patient is incontinent, unable to estimate intake and output -will consult Cardiology due to acute exacerbation of CHF and pericardial effusion -continue home oxygen to keep oxygen greater than 90 -utilize BiPAP while sleeping -patient states she has a recent history of viral illness (RSV) although are viral panel was negative.? Due to her history, possible secondary bacterial pneumonia could be playing a part.? Will stop meropenem (was on for UTI) and start ceftriaxone and azithromycin -thoracentesis ordered, check procalcitonin 10/10/23: Continue Lasix 40 mg IV b.i.d. Cardiology consulted Continue Rocephin and azithromycin IV today and then switch over to cefdinir and azithromycin oral tomorrow Thoracentesis today Patient was refusing echocardiogram today 10/11: Holding Lasix with creatinine bump to 2.4 Cardiology following, recs appreciated On cefdinir and azithromycin for possible pneumonia Thoracentesis yesterday with 1 L removed. Strict I&O ordered Weight 158.5 kg up from 155 kilos yesterday (2) Pneumonia: ?Code(s): J18.9 - Pneumonia, unspecified organism ?Status:?Inactive ?Assessment and Plan: 10/10/23: Chest x-ray from 10/09/2023 showing congestive heart failure, pulmonary edema, pleural effusion with the right being greater than the left, bilateral pulmonary infiltrates with central and basilar predominance greater on the right Patient started on Rocephin and azithromycin yesterday we will switch to oral cefdinir and azithromycin tomorrow due to NPO status Cardiology following Plan for thoracentesis today 10/11: Thoracentesis Yesterday with 1 L removed. Awaiting fluid culture Cont
[2023-10-12 11:57] LABS: Glucose Point of Care 250 mg/dl (65-105)
[2023-10-12] MEDS: INSULIN ASPART (*BKC) 100 UNITS/ML SUB-Q (11:59)
--- NOTE | 2023-10-12 13:29 | PM.PNCARD ---
Progress Note: A&P Assessment and Plan (1) Atrial fibrillation with rapid ventricular response: Code(s): I48.91 - Unspecified atrial fibrillation Status: Acute Assessment and Plan: History of atrial fibrillation rate controlled and on anticoagulation. Decrease metoprolol back to 50mg b.i.d. Will shift back to ToprolXL She is anticoagulated with Xarelto. Continue telemetry Cardiology will sign off. Please call with questions. (2) Acute exacerbation of CHF (congestive heart failure): Qualifiers: Heart failure type: unspecified Qualified Code(s): I50.9 - Heart failure, unspecified Code(s): I50.9 - Heart failure, unspecified Status: Acute Assessment and Plan: Acute on chronic diastolic heart failure. Improved with IV diuresis and thoracentesis Holding furosemide for the time being becaise of bump in BUN and SCr Thoracentesis 10/10 with 1L fluid removed Daily weights Monitor intake & output Will need to resume furosemide p.o. when renal function improves (3) CKD (chronic kidney disease): Qualifiers: Chronic kidney disease stage: unspecified stage Qualified Code(s): N18.9 - Chronic kidney disease, unspecified Code(s): N18.9 - Chronic kidney disease, unspecified Status: Chronic Assessment and Plan: As above. Avoid nephrotoxic agents (4) Hypertension: Code(s): I10 - Essential (primary) hypertension Status: Chronic Assessment and Plan: At goal. Continue current medical regimen. Subjective Date/time seen: 10/12/23 13:29 Interval history: Cardiology follow up for CHF, AFib Date of service 10/11/2023: Feeling much better following thoracentesis. Breathing significantly improved. Rate is controlled today. Date of service 10/12/23: Complaining of hip pain today. No shortness of breath, palpitations, or chest pain. Exam Const: General: comfortable, no acute distress, alert and awake Orientation/consciousness: patient oriented x3 HENMT: Head: normal to inspection Eyes: General: appearance normal, both eyes and all related structures Pupils: Equal, round and reactive pupils present Neck: Neck: normal visual inspection and supple Carotids: normal carotid upstroke Other: Unable to assess for JVD due to body habitus Resp: Effort & Inspection: normal respiratory effort Auscultation: not clear to auscultation bilaterally and rales Cardio: Rate: regular rate and tachycardic Rhythm: abnormal rhythm irregularly irregular Heart sounds: S1 normal heart sound present, S2 normal heart sound present and Murmur heart sound present systolic GI: Auscultation: normal bowel sounds Skin: General skin exam: normal color Neuro: General: patient oriented x3 Cranial nerves: Yes Equal, round and reactive pupils present Extrem: General: abnormal to inspection Other: Edema Psych: Appearance: grossly normal Mental Status: mental status grossly normal Objective Data Vital Signs Vital Signs: Vital Signs - 24 hr 10/11/23 14:31 10/11/23 14:36 10/11/23 14:00 Temperature Pulse Rate 111 H 111 H 92 Respiratory Rate Blood Pressure 107/89 Pulse Oximetry Oxygen Delivery Oxygen Flow Rate Fraction of Inspired Oxygen 10/11/23 15:35 10/11/23 16:00 10/11/23 16:00 Temperature 36.2 C L Pulse Rate 95 97 Respiratory Rate 16 Blood Pressure 97/63 L Pulse Oximetry 98 98 Oxygen Delivery Nasal Cannula Oxygen Flow Rate 5 Fraction of Inspired Oxygen 10/11/23 18:00 10/11/23 20:22 10/11/23 21:02 Temperature 36.2 C L Pulse Rate 81 83 80 Respiratory Rate 16 Blood Pressure 108/90 Pulse Oximetry 95 Oxygen Delivery Oxygen Flow Rate Fraction of Inspired Oxygen 10/11/23 20:20 10/11/23 20:00 10/11/23 20:00 Temperature Pulse Rate 91 78 80 Respiratory Rate 18 16 Blood Pressure Pulse Oximetry 97 95 Oxygen Delivery BiPAP BiPAP Oxygen Flow
--- NOTE | 2023-10-12 13:34 | PM.PNPUL ---
Progress Note: A&P Assessment and Plan (1) Acute on chronic respiratory failure with hypoxia and hypercapnia: Code(s): J96.21 - Acute and chronic respiratory failure with hypoxia; J96.22 - Acute and chronic respiratory failure with hypercapnia Status: Acute Assessment and Plan: A 73-year-old female patient with morbid obesity and obstructive sleep apnea, who has been non-compliant with her BiPAP support, was admitted with symptoms of shortness of breath, bilateral pleural effusion, mild pulmonary edema, and acute on chronic hypercapnic respiratory failure. The patient appears to be responding to the current treatment plan, which includes ventilatory support with BiPAP, supplemental oxygen, and diuretics. She has also undergone a thoracentesis, although no fluid analysis is currently available. The patient's current hospitalization was triggered by congestive heart failure along with bilateral pleural effusions. She has a known history of sleep apnea and secondary pulmonary hypertension. Her untreated sleep apnea is also a contributing factor to her congestive heart failure. Patient did not have pleural fluid analysis done. On pleural fluid culture the preliminary report indicated rare Gram-positive cocci. Patient is currently on 3 antibiotics. I doubt the patient has empyema. In view of rising creatinine I would hold vancomycin at this point. Initial chest CT showed bilateral pleural effusions related to congestive heart failure with associated atelectasis. She has no signs of lower respiratory tract infection such as cough sputum production or leukocytosis on admission. I would continue with current BiPAP support supplemental oxygen and in view of rising creatinine I will stop vancomycin. You may continue with cephalosporin despite while waiting final pleural fluid culture. (2) Atrial fibrillation with rapid ventricular response: Code(s): I48.91 - Unspecified atrial fibrillation Status: Acute (3) Acute exacerbation of CHF (congestive heart failure): Qualifiers: Heart failure type: unspecified Qualified Code(s): I50.9 - Heart failure, unspecified Code(s): I50.9 - Heart failure, unspecified Status: Acute (4) Acute kidney injury: Code(s): N17.9 - Acute kidney failure, unspecified Status: Acute (5) Chronic respiratory failure with hypoxia and hypercapnia: Code(s): J96.11 - Chronic respiratory failure with hypoxia; J96.12 - Chronic respiratory failure with hypercapnia Status: Acute (6) Obstructive sleep apnea: Onset Date: ~2014 Code(s): G47.33 - Obstructive sleep apnea (adult) (pediatric) Status: Chronic (7) Morbid obesity: Onset Date: ~2009 Code(s): E66.01 - Morbid (severe) obesity due to excess calories Status: Chronic Subjective Date/time seen: 10/12/23 13:34 Interval history: Patient has no new respiratory symptoms. She stated that her breathing has gotten better. She used BiPAP support last night. Afebrile. Shortness of breath about baseline. Review of Systems Review of Systems: All systems reviewed & are unremarkable except as noted in HPI and below (HPI and below) Exam Narrative: GENERAL APPEARANCE: Well developed, well nourished, alert and cooperative, morbidly obese who appears to be in mild respiratory distress while on supplemental oxygen, sitting in a chair a SKIN: Inspection of the skin reveals no rashes, ulcerations or petechiae. HEENT: Sclerae anicteric and conjunctivae pink and moist. Extraocular movements were intact and pupils were equal, round, and reactive to light. The oral mucosa, hard and soft palate, tongue and posterior pharynx were normal. NECK: Supple. There was no thyroid enlargement, and no tenderness, or masses were felt. LUNGS: Dullness to percussion decreased breath sounds at right base posteriorly CARDIAC: Irregular heart rhythm, systolic murmur the apex ABDOMEN: Obese bowel
[2023-10-12] MEDS: RIVAROXABAN 20 MG TABLET PO (16:46)
[2023-10-12 18:32] LABS: Glucose Point of Care 190 mg/dl (65-105)
[2023-10-12] MEDS: FERROUS SULFATE 325 MG TABLET DR PO (20:19)
[2023-10-12] MEDS: ATORVASTATIN 10 MG TABLET PO (20:19)
[2023-10-12] MEDS: LATANOPROST 0.005% OP SOLN 2.5 ML BTL 1 DROP EACH EYE (20:21)
[2023-10-12 20:52] LABS: Glucose Point of Care 176 mg/dl (65-105)
[2023-10-13] VITALS (19 sets, daily range): BP systolic 95–111; BP diastolic 47–61; PULSE 78–98; RESP 16–25; TEMP 36.2–36.8; O2SAT 91–99
[2023-10-13] MEDS: ACETAMINOPHEN 325 MG TABLET 650 MG PO ×4 (00:11→21:09)
[2023-10-13] MEDS: PREGABALIN (*CRX) 50 MG CAPSULE PO ×2 (00:11→21:09)
[2023-10-13 04:33] LABS: Sodium Urine Random 17 meq/L
[2023-10-13 05:00] LABS: Basophils Percent Auto 0.5 % (0.2-1.2); Eosinophils Absolute Auto 0.3 K/mm3 (0-0.3); Eosinophils Percent Auto 4.9 % (0-4.4); Hematocrit 30.6 % (37.0-47.0); Hemoglobin 8.8 g/dL (12.0-15.0); Immature Granulocyte Absolute 0.05 K/mm3 (0.00-0.031); Immature Granulocyte Percent A 0.8 % (0-0.5); Immature Platelet Fraction Pct 7.1 % (0.9-11.2); Lymphocytes Absolute Auto 0.47 K/mm3 (0.9-3.2); Lymphocytes Percent Auto 7.1 % (18.3-44.2); Mean Corpuscular HGB Conc 28.8 g/dl (32-36); Mean Corpuscular Hemoglobin 31.9 pg (26-34); Mean Corpuscular Volume 110.9 fl (80-100); Mean Platelet Volume 11.3 fl (7.4-10.4); Monocytes Absolute Auto 0.6 K/mm3 (0.1-0.6); Monocytes Percent Auto 9.3 % (2.6-8.5); Neutrophils Absolute Auto 5.1 K/mm3 (1.3-6.7); Neutrophils Percent Auto 77.4 % (45.5-73.1); Platelet Count Result 128 k/mm3 (150-375); Red Blood Count 2.76 M/mm3 (4.2-5.4); Red Cell Distribution Width 16.2 % (11.5-14.5); White Blood Count 6.6 K/mm3 (4.5-10.0)
[2023-10-13 05:11] LABS: Alanine Aminotransferase 10 U/L (6-35); Alkaline Phosphatase 69 U/L (38-126); Anion Gap 6 mmol/L (4-12); Aspartate Amino Transferase 18 U/L (14-36); Bilirubin,Total 0.4 mg/dL (0.2-1.3); Blood Urea Nitrogen 58 mg/dL (7-17); Calcium 8.3 mg/dL (8.4-10.2); Carbon Dioxide 30 mmol/L (22-30); Chloride 101 mmol/L (98-107); Estimated CRCL calculation 25 ml/min; Estimated Glomerular Filt Rate 18; Glucose 212 mg/dL (65-110); Potassium 4.5 mmol/L (3.4-5.0); Sodium 137 mmol/L (137-145)
[2023-10-13 05:29] LABS: Hypochromasia 1+; Macrocytosis 1+ (NORMAL); Platelet Estimate Slightly Decreased (Adequate); Schistocytes None Seen
[2023-10-13] MEDS: FLUTICASONE/UMECLIDIN/VILANTER 100-62.5-25 MCG ELLIPTA 1 PUFF INHALATION (08:51)
[2023-10-13] MEDS: TRIAMCINOLONE ACET 0.1% OINT 15 GM TUBE 1 APPLIC TOPICAL ×2 (09:10→16:12)
[2023-10-13] MEDS: PANTOPRAZOLE 40 MG TABLET PO (09:11)
[2023-10-13] MEDS: busPIRone HCL 2.5 MG TABLET 7.5 MG PO ×2 (09:11→16:11)
[2023-10-13] MEDS: SACUBITRIL/VALSARTAN 24-26 MG TABLET 1 TAB PO ×2 (09:11→21:08)
[2023-10-13] MEDS: DULoxetine HCL 30 MG CAPSULE.DR PO (09:11)
[2023-10-13] MEDS: CEFDINIR 300 MG CAPSULE PO ×2 (09:11→21:09)
[2023-10-13] MEDS: FUROSEMIDE 40 MG TABLET PO (09:11)
[2023-10-13] MEDS: CHOLECALCIFEROL 1,000 UNITS TABLET 1000 UNITS PO (09:12)
[2023-10-13] MEDS: CALCIUM CARBONATE (OSCAL) 500 MG TABLET PO (09:12)
[2023-10-13] MEDS: METOPROLOL TARTRATE 50 MG TAB PO ×2 (09:12→21:09)
[2023-10-13] MEDS: AZITHROMYCIN 250 MG TABLET 500 MG PO (09:12)
[2023-10-13] MEDS: POTASSIUM CHLORIDE 20 MEQ ER TABLET PO (09:12)
[2023-10-13] MEDS: TAMSULOSIN HCL 0.4 MG CAPSULE PO (09:12)
[2023-10-13] MEDS: ASCORBIC ACID 500 MG TABLET 1000 MG PO (09:12)
[2023-10-13] MEDS: ASPIRIN 81 MG ENTERIC TABLET PO (09:13)
[2023-10-13] MEDS: SACCHAROMYCES BOULARDII 250 MG CAPSULE PO ×2 (09:13→16:12)
[2023-10-13] MEDS: MULTIVITAMINS THERAPEUTIC TAB (*BKC) 1 TABLET PO (09:13)
[2023-10-13] MEDS: MONTELUKAST SODIUM 10 MG TABLET PO (09:13)
[2023-10-13] MEDS: CYANOCOBALAMIN 1,000 MCG TABLET 1000 MCG PO (09:13)
[2023-10-13 09:16] LABS: Glucose Point of Care 183 mg/dl (65-105)
--- NOTE | 2023-10-13 10:24 | PM.PNPUL ---
Progress Note: A&P Assessment and Plan (1) Acute on chronic respiratory failure with hypoxia and hypercapnia: Code(s): J96.21 - Acute and chronic respiratory failure with hypoxia; J96.22 - Acute and chronic respiratory failure with hypercapnia Status: Acute Assessment and Plan: A 73-year-old female patient with morbid obesity and obstructive sleep apnea, who has been non-compliant with her BiPAP support, was admitted with symptoms of shortness of breath, bilateral pleural effusion, mild pulmonary edema, and acute on chronic hypercapnic respiratory failure. The patient appears to be responding to the current treatment plan, which includes ventilatory support with BiPAP, supplemental oxygen, and diuretics. She has also undergone a thoracentesis, although no fluid analysis is currently available. The patient's current hospitalization was triggered by congestive heart failure along with bilateral pleural effusions. She has a known history of sleep apnea and secondary pulmonary hypertension. Her untreated sleep apnea is also a contributing factor to her congestive heart failure. Patient did not have pleural fluid analysis done. On pleural fluid culture the preliminary anaerobic bilateral report indicated rare Gram-positive cocci. Vancomycin has been discontinued as patient has no evidence of ongoing infection. Creatinine still trending higher. Overall respiratory status stable over the last 24 hours. Plan: Continue with BiPAP support at night supplemental oxygen out of bed to chair. EPAP pressure increased to 10. Await final pleural fluid culture report. (2) Atrial fibrillation with rapid ventricular response: Code(s): I48.91 - Unspecified atrial fibrillation Status: Acute (3) Acute exacerbation of CHF (congestive heart failure): Qualifiers: Heart failure type: unspecified Qualified Code(s): I50.9 - Heart failure, unspecified Code(s): I50.9 - Heart failure, unspecified Status: Acute (4) Acute kidney injury: Code(s): N17.9 - Acute kidney failure, unspecified Status: Acute (5) Chronic respiratory failure with hypoxia and hypercapnia: Code(s): J96.11 - Chronic respiratory failure with hypoxia; J96.12 - Chronic respiratory failure with hypercapnia Status: Acute (6) Obstructive sleep apnea: Onset Date: ~2014 Code(s): G47.33 - Obstructive sleep apnea (adult) (pediatric) Status: Chronic (7) Morbid obesity: Onset Date: ~2009 Code(s): E66.01 - Morbid (severe) obesity due to excess calories Status: Chronic Subjective Date/time seen: 10/13/23 10:24 Interval history: Patient has no new respiratory symptoms. Shortness of breath unchanged over the last 24 hours. Using BiPAP support at night. Has had some hoarse voice but no fever cough or sputum production Review of Systems Review of Systems: All systems reviewed & are unremarkable except as noted in HPI and below (HPI and below) Exam Narrative: GENERAL APPEARANCE: Well developed, well nourished, alert and cooperative, morbidly obese who appears to be in mild respiratory distress while on supplemental oxygen, sitting in a chair a SKIN: Inspection of the skin reveals no rashes, ulcerations or petechiae. HEENT: Sclerae anicteric and conjunctivae pink and moist. Extraocular movements were intact and pupils were equal, round, and reactive to light. The oral mucosa, hard and soft palate, tongue and posterior pharynx were normal. NECK: Supple. There was no thyroid enlargement, and no tenderness, or masses were felt. LUNGS: Dullness to percussion decreased breath sounds at right base posteriorly CARDIAC: Irregular heart rhythm, systolic murmur the apex ABDOMEN: Obese bowel sounds present no organomegaly EXTREMITIES: No cyanosis, clubbing; chronic stasis dermatitis lower extremities bilaterally. NEUROLOGIC: Alert and oriented x 3. Normal affect. Objective Data Vital Signs
[2023-10-13] MEDS: INSULIN ASPART (*BKC) 100 UNITS/ML SUB-Q ×2 (16:11→21:10)
[2023-10-13] MEDS: RIVAROXABAN 20 MG TABLET PO (16:12)
[2023-10-13 16:26] LABS: Glucose Point of Care 215 mg/dl (65-105)
[2023-10-13 20:27] LABS: Glucose Point of Care 237 mg/dl (65-105)
[2023-10-13 20:54] LABS: Glucose Point of Care 227 mg/dl (65-105)
[2023-10-13] MEDS: ATORVASTATIN 10 MG TABLET PO (21:08)
[2023-10-13] MEDS: FERROUS SULFATE 325 MG TABLET DR PO (21:09)
[2023-10-13] MEDS: LATANOPROST 0.005% OP SOLN 2.5 ML BTL 1 DROP EACH EYE (21:11)
[2023-10-14] VITALS (11 sets, daily range): BP systolic 93–126; BP diastolic 56–72; PULSE 74–92; RESP 16–34; TEMP 36.2–36.7; O2SAT 90–99
[2023-10-14 05:12] LABS: Alanine Aminotransferase 10 U/L (6-35); Albumin Level 3.1 g/dL (3.5-5.1); Alkaline Phosphatase 70 U/L (38-126); Anion Gap 5 mmol/L (4-12); Aspartate Amino Transferase 18 U/L (14-36); Bilirubin,Total 0.3 mg/dL (0.2-1.3); Blood Urea Nitrogen 63 mg/dL (7-17); Calcium 8.4 mg/dL (8.4-10.2); Carbon Dioxide 31 mmol/L (22-30); Chloride 101 mmol/L (98-107); Estimated CRCL calculation 24 ml/min; Estimated Glomerular Filt Rate 16; Glucose 179 mg/dL (65-110); Potassium 4.9 mmol/L (3.4-5.0); Sodium 137 mmol/L (137-145)
[2023-10-14 05:33] LABS: Basophils Percent Auto 0.5 % (0.2-1.2); Eosinophils Absolute Auto 0.3 K/mm3 (0-0.3); Eosinophils Percent Auto 5.4 % (0-4.4); Hematocrit 31.7 % (37.0-47.0); Hemoglobin 9.2 g/dL (12.0-15.0); Immature Granulocyte Absolute 0.04 K/mm3 (0.00-0.031); Immature Granulocyte Percent A 0.7 % (0-0.5); Lymphocytes Percent Auto 9.1 % (18.3-44.2); Mean Corpuscular Hemoglobin 32.3 pg (26-34); Mean Corpuscular Volume 111.2 fl (80-100); Mean Platelet Volume 11.1 fl (7.4-10.4); Monocytes Absolute Auto 0.6 K/mm3 (0.1-0.6); Monocytes Percent Auto 10.3 % (2.6-8.5); Neutrophils Absolute Auto 4.1 K/mm3 (1.3-6.7); Platelet Count Result 133 k/mm3 (150-375); Red Blood Count 2.85 M/mm3 (4.2-5.4); Red Cell Distribution Width 15.8 % (11.5-14.5); White Blood Count 5.5 K/mm3 (4.5-10.0)
[2023-10-14 06:37] LABS: Anisocytosis 1+; Platelet Estimate Slightly Decreased (Adequate); Schistocytes None Seen
[2023-10-14] MEDS: FLUTICASONE/UMECLIDIN/VILANTER 100-62.5-25 MCG ELLIPTA 1 PUFF INHALATION (08:17)
[2023-10-14 08:23] LABS: Glucose Point of Care 169 mg/dl (65-105)
[2023-10-14 09:05] LABS: Creatinine Urine 305.4 mg/dL
[2023-10-14] MEDS: DULoxetine HCL 30 MG CAPSULE.DR PO (09:05)
[2023-10-14] MEDS: busPIRone HCL 2.5 MG TABLET 7.5 MG PO ×2 (09:05→16:34)
[2023-10-14] MEDS: CALCIUM CARBONATE (OSCAL) 500 MG TABLET PO (09:05)
[2023-10-14] MEDS: AZITHROMYCIN 250 MG TABLET 500 MG PO (09:06)
[2023-10-14] MEDS: CEFDINIR 300 MG CAPSULE PO ×2 (09:07→20:27)
[2023-10-14] MEDS: MULTIVITAMINS THERAPEUTIC TAB (*BKC) 1 TABLET PO (09:07)
[2023-10-14] MEDS: ASCORBIC ACID 500 MG TABLET 1000 MG PO (09:08)
[2023-10-14] MEDS: PANTOPRAZOLE 40 MG TABLET PO (09:08)
[2023-10-14] MEDS: POTASSIUM CHLORIDE 20 MEQ ER TABLET PO (09:08)
[2023-10-14] MEDS: SACUBITRIL/VALSARTAN 24-26 MG TABLET 1 TAB PO (09:08)
[2023-10-14] MEDS: METOPROLOL TARTRATE 50 MG TAB PO ×2 (09:09→20:27)
[2023-10-14] MEDS: SACCHAROMYCES BOULARDII 250 MG CAPSULE PO ×2 (09:09→16:34)
[2023-10-14] MEDS: MONTELUKAST SODIUM 10 MG TABLET PO (09:09)
[2023-10-14] MEDS: ASPIRIN 81 MG ENTERIC TABLET PO (09:10)
[2023-10-14] MEDS: CHOLECALCIFEROL 1,000 UNITS TABLET 1000 UNITS PO (09:10)
[2023-10-14] MEDS: FUROSEMIDE 40 MG TABLET PO (09:10)
[2023-10-14] MEDS: TAMSULOSIN HCL 0.4 MG CAPSULE PO (09:11)
[2023-10-14] MEDS: TRIAMCINOLONE ACET 0.1% OINT 15 GM TUBE 1 APPLIC TOPICAL ×2 (09:11→16:36)
[2023-10-14] MEDS: CYANOCOBALAMIN 1,000 MCG TABLET 1000 MCG PO (09:11)
--- NOTE | 2023-10-14 10:15 | PC.NURSE ---
Report given to CHACORTA Espinal.
--- NOTE | 2023-10-14 10:32 | PM.PNPUL ---
Progress Note: A&P Assessment and Plan (1) Acute on chronic respiratory failure with hypoxia and hypercapnia: Code(s): J96.21 - Acute and chronic respiratory failure with hypoxia; J96.22 - Acute and chronic respiratory failure with hypercapnia Status: Acute Assessment and Plan: A 73-year-old female patient with morbid obesity and obstructive sleep apnea, who has been non-compliant with her BiPAP support, was admitted with symptoms of shortness of breath, bilateral pleural effusion, mild pulmonary edema, and acute on chronic hypercapnic respiratory failure. The patient appears to be responding to the current treatment plan, which includes ventilatory support with BiPAP, supplemental oxygen, and diuretics. She has also undergone a thoracentesis, although no fluid analysis is currently available. The patient's current hospitalization was triggered by congestive heart failure along with bilateral pleural effusions. She has a known history of sleep apnea and secondary pulmonary hypertension. Her untreated sleep apnea is also a contributing factor to her congestive heart failure. Patient did not have pleural fluid analysis done. On pleural fluid culture the preliminary anaerobic bilateral report indicated rare Gram-positive cocci. Anaerobic bottle negative so far. Vancomycin has been discontinued as patient has no evidence of ongoing infection. Creatinine still trending higher. Overall respiratory status stable over the last 24 hours. Tolerated higher EPAP pressure last night. Plan: Continue with current regimen of BiPAP support, supplemental oxygen, out of bed to chair. Repeat chest x-ray in a.m. (2) Atrial fibrillation with rapid ventricular response: Code(s): I48.91 - Unspecified atrial fibrillation Status: Acute (3) Acute exacerbation of CHF (congestive heart failure): Qualifiers: Heart failure type: unspecified Qualified Code(s): I50.9 - Heart failure, unspecified Code(s): I50.9 - Heart failure, unspecified Status: Acute (4) Acute kidney injury: Code(s): N17.9 - Acute kidney failure, unspecified Status: Acute (5) Chronic respiratory failure with hypoxia and hypercapnia: Code(s): J96.11 - Chronic respiratory failure with hypoxia; J96.12 - Chronic respiratory failure with hypercapnia Status: Acute (6) Obstructive sleep apnea: Onset Date: ~2014 Code(s): G47.33 - Obstructive sleep apnea (adult) (pediatric) Status: Chronic (7) Morbid obesity: Onset Date: ~2010 Code(s): E66.01 - Morbid (severe) obesity due to excess calories Status: Chronic Subjective Date/time seen: 10/14/23 10:32 Interval history: Patient without any new respiratory symptoms. Used BiPAP support last night. Currently on supplemental oxygen. Continues to have some hoarse voice. Creatinine remains elevated. Review of Systems Review of Systems: All systems reviewed & are unremarkable except as noted in HPI and below (HPI and below) Exam Narrative: GENERAL APPEARANCE: Well developed, well nourished, alert and cooperative, morbidly obese who appears to be in mild respiratory distress while on supplemental oxygen, sitting in a chair a SKIN: Inspection of the skin reveals no rashes, ulcerations or petechiae. HEENT: Sclerae anicteric and conjunctivae pink and moist. Extraocular movements were intact and pupils were equal, round, and reactive to light. The oral mucosa, hard and soft palate, tongue and posterior pharynx were normal. NECK: Supple. There was no thyroid enlargement, and no tenderness, or masses were felt. LUNGS: Dullness to percussion decreased breath sounds at right base posteriorly CARDIAC: Irregular heart rhythm, systolic murmur the apex ABDOMEN: Obese bowel sounds present no organomegaly EXTREMITIES: No cyanosis, clubbing; chronic stasis dermatitis lower extremities bilaterally. NEUROLOGIC: Alert and oriented x 3. Normal affect.
--- NOTE | 2023-10-14 10:34 | PCNWS ---
Weekly nutritional screen. Patient is tolerating current diet with adequate intake, 50-100% on heart healthy. Mostly 100% intakes seen. No weight loss reported. Pt is being diuresed. No nutritional needs at this time.
[2023-10-14] MEDS: INSULIN ASPART (*BKC) 100 UNITS/ML SUB-Q ×3 (12:31→20:39)
--- NOTE | 2023-10-14 12:57 | PC.NURSE ---
This patient, Laurel Rucker, was received from IMU on 10/14/23 at 1257. Patient/family oriented to unit policies and routines
--- NOTE | 2023-10-14 14:13 | P.CONNP_ITS ---
Assessment and Plan Assessment and plan (1) Acute kidney injury: Code(s): N17.9 - Acute kidney failure, unspecified Status: Acute Assessment and Plan: * suspect secondary to need for diuretic therapy to attain relative euvolemia * urine electrolytes suggest prerenal azotemia * agree with trial of IVFs and holding diuretics + Entresto * check renal ultrasound and CPK * follow trend of repeat labs and UOP (2) Stage 3b chronic kidney disease: Code(s): N18.32 - Chronic kidney disease, stage 3b Status: Chronic Assessment and Plan: * baseline creatinine usually runs ~ 1.1 - 1.6 mg/dL * secondary to her diabetes, hypertension, vascular disease, obstructive sleep apnea/pulmonary hypertension, and chronic CHF with the necessity for diuretic therapy along with age-related change (3) Acute on chronic respiratory failure with hypoxia and hypercapnia: Code(s): J96.21 - Acute and chronic respiratory failure with hypoxia; J96.22 - Acute and chronic respiratory failure with hypercapnia Status: Acute Assessment and Plan: * felt to be due to a combination of volume overload/CHF and pneumonia * Cardiology and Pulmonary following * see #4 and #5 (4) Pneumonia: Code(s): J18.9 - Pneumonia, unspecified organism Status: Acute Assessment and Plan: * as suggested by admission imaging * on antibiotics * BiPAP support as needed * continue supplemental oxygen * s/p thoracentesis (on 10/09) * Pulmonary following (5) Acute exacerbation of CHF (congestive heart failure): Qualifiers: Heart failure type: unspecified Qualified Code(s): I50.9 - Heart failure, unspecified Code(s): I50.9 - Heart failure, unspecified Status: Acute Assessment and Plan: * as evidenced by findings on admission * last Echo noted * was on IV diuretic therpy * currently on hold due to #1 * follow I/Os, daily weights, and respiratory status * Cardiology following (6) UTI (urinary tract infection): Code(s): N39.0 - Urinary tract infection, site not specified Status: Acute Assessment and Plan: * as suggested by admission UA * urine culture with Proteus mirabilis * completed treatment (7) Hypertension: Code(s): I10 - Essential (primary) hypertension Status: Chronic Assessment and Plan: * running a bit on the soft side * BP medications with parameters * follow trend of hemodynamics (8) Type 2 diabetes mellitus with diabetic nephropathy, with long-term current use of insulin: Code(s): E11.21 - Type 2 diabetes mellitus with diabetic nephropathy; Z79.4 - custodial (current) use of insulin Status: Chronic Assessment and Plan: * follow accu-cheks * glycemic control per hospitalists I will continue to follow the patient with you while she remains hospitalized and make further recommendations as deemed necessary. Thank you for allowing me to see in the care of this patient. History of Present Illness Reason for Consult Consult date: 10/14/23 Reason for consult: acute renal failure (on chronic kidney disease) Chief Complaint Chief complaint: Acute Hypoxic/Hypercapnic Resp Failure/CHF/UTI History of Present Illness Narrative: The patient is a 73-year-old female with extensive past medical history as outlined below who presented to [facility] Room via EMS from her nursing facility for further evaluation of hypoxia in association with hallucinations. Apparently, the
--- NOTE | 2023-10-14 14:13 | PM.CNNEP ---
Assessment and Plan Assessment and plan (1) Acute kidney injury: Code(s): N17.9 - Acute kidney failure, unspecified Status: Acute Assessment and Plan: suspect secondary to need for diuretic therapy to attain relative euvolemia urine electrolytes suggest prerenal azotemia agree with trial of IVFs and holding diuretics + Entresto check renal ultrasound and CPK follow trend of repeat labs and UOP (2) Stage 3b chronic kidney disease: Code(s): N18.32 - Chronic kidney disease, stage 3b Status: Chronic Assessment and Plan: baseline creatinine usually runs ~ 1.1 - 1.6 mg/dL secondary to her diabetes, hypertension, vascular disease, obstructive sleep apnea/pulmonary hypertension, and chronic CHF with the necessity for diuretic therapy along with age-related change (3) Acute on chronic respiratory failure with hypoxia and hypercapnia: Code(s): J96.21 - Acute and chronic respiratory failure with hypoxia; J96.22 - Acute and chronic respiratory failure with hypercapnia Status: Acute Assessment and Plan: felt to be due to a combination of volume overload/CHF and pneumonia Cardiology and Pulmonary following see #4 and #5 (4) Pneumonia: Code(s): J18.9 - Pneumonia, unspecified organism Status: Acute Assessment and Plan: as suggested by admission imaging on antibiotics BiPAP support as needed continue supplemental oxygen s/p thoracentesis (on 10/09) Pulmonary following (5) Acute exacerbation of CHF (congestive heart failure): Qualifiers: Heart failure type: unspecified Qualified Code(s): I50.9 - Heart failure, unspecified Code(s): I50.9 - Heart failure, unspecified Status: Acute Assessment and Plan: as evidenced by findings on admission last Echo noted was on IV diuretic therpy currently on hold due to #1 follow I/Os, daily weights, and respiratory status Cardiology following (6) UTI (urinary tract infection): Code(s): N39.0 - Urinary tract infection, site not specified Status: Acute Assessment and Plan: as suggested by admission UA urine culture with Proteus mirabilis completed treatment (7) Hypertension: Code(s): I10 - Essential (primary) hypertension Status: Chronic Assessment and Plan: running a bit on the soft side BP medications with parameters follow trend of hemodynamics (8) Type 2 diabetes mellitus with diabetic nephropathy, with long-term current use of insulin: Code(s): E11.21 - Type 2 diabetes mellitus with diabetic nephropathy; 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 Thank you for allowing me to see in the care of this patient. History of Present Illness Reason for Consult Consult date: 10/14/23 Reason for consult: acute renal failure (on chronic kidney disease) Chief Complaint Chief complaint: Acute Hypoxic/Hypercapnic Resp Failure/CHF/UTI History of Present Illness Narrative: The patient is a 73-year-old female with extensive past medical history as outlined below who presented to [facility] Emergency Room via EMS from her nursing facility for further evaluation of hypoxia in association with hallucinations. Apparently, the patient was recently diagnosed with RSV and has been in isolation at her nursing facility. Since this diagnosis was made, she has been reportedly feeling more short of breath than usual. She is known to require 2 L of supplemental oxygen by nasal cannula at baseline. However, more recently, her oxygen requirements have been slowly increasing to the point where she was up to 5 L on the day of presentation. This has been further complicated by the fact t
[2023-10-14 14:29] LABS: Osmolality, Urine 532 mOsm/kg (50-1200)
--- NOTE | 2023-10-14 15:10 | PCOTNOTE ---
Patient declined OT treatment this afternoon.
[2023-10-14] MEDS: RIVAROXABAN 20 MG TABLET PO (16:34)
[2023-10-14] MEDS: ACETAMINOPHEN 325 MG TABLET 650 MG PO ×2 (16:34→20:37)
[2023-10-14 16:41] LABS: Glucose Point of Care 267 mg/dl (65-105)
[2023-10-14 17:31] LABS: Glucose Point of Care 233 mg/dl (65-105)
--- NOTE | 2023-10-14 17:34 | PM.IMPN ---
Progress Note: A&P Assessment and Plan (1) Acute on chronic respiratory failure with hypoxia and hypercapnia: Code(s): J96.21 - Acute and chronic respiratory failure with hypoxia; J96.22 - Acute and chronic respiratory failure with hypercapnia Status: Acute (2) Atrial fibrillation with rapid ventricular response: Code(s): I48.91 - Unspecified atrial fibrillation Status: Acute (3) Acute exacerbation of CHF (congestive heart failure): Qualifiers: Heart failure type: unspecified Qualified Code(s): I50.9 - Heart failure, unspecified Code(s): I50.9 - Heart failure, unspecified Status: Acute Plan (1) Acute on chronic respiratory failure with hypoxia and hypercapnia: ?Code(s): J96.21 - Acute and chronic respiratory failure with hypoxia; J96.22 - Acute and chronic respiratory failure with hypercapnia ?Status:?Acute ?Assessment and Plan: 10/07/23: - CXR: 1. Airspace opacities in the mid and lower lung zones with worsening on the right, consistent with atelectasis versus pneumonia. 2.. Moderate-sized right and small left pleural effusions with worsening on the right. 3. Enlargement of the cardiac silhouette, likely a combination of cardiomegaly and pericardial effusion. - CT chest: - ABG, initial: pH 7.324, pCO2 59.4, pO2 60.3, HCO3 30.2, O2 sat 88.6% on 5L NC. - ABG, repeat: pH 7.382, pCO2 51.6, pO2 70, HCO3 30, O2 sat 93.6% on BiPAP. - placed on BiPAP in ED, continuing - continue home inhalers: Albuterol and Trelegy - plan for diagnostic thoracentesis of the right moderate pleural effusion, holding Xarelto for 24-48 hours prior to procedure.? SCDs started in lieu of anticoagulation. - DDx: CHF exacerbation, worsening pleural effusion, PNA. suspect CHF exacerbation/worsening pleural effusion in combination with recent viral illness. 10/08/23: Continue with current treatment plan 10/09/23: Suspect multifactorial due to exacerbation of CHF and possible pneumonia -CT chest shows mild pulmonary edema and moderate right and small left pleural effusions with moderate size pericardial effusion -repeat chest x-ray done today, right side looks a little worse -will continue Lasix 40 mg IV b.i.d. (she takes 40 mg at home orally). will add daily potassium -patient is incontinent, unable to estimate intake and output -will consult Cardiology due to acute exacerbation of CHF and pericardial effusion -continue home oxygen to keep oxygen greater than 90 -utilize BiPAP while sleeping -patient states she has a recent history of viral illness (RSV) although are viral panel was negative.? Due to her history, possible secondary bacterial pneumonia could be playing a part.? Will stop meropenem (was on for UTI) and start ceftriaxone and azithromycin -thoracentesis ordered, check procalcitonin 10/10/23: Continue Lasix 40 mg IV b.i.d. Cardiology consulted Continue Rocephin and azithromycin IV today and then switch over to cefdinir and azithromycin oral tomorrow Thoracentesis today Patient was refusing echocardiogram today 10/11: Holding Lasix with creatinine bump to 2.4 Cardiology following, recs appreciated On cefdinir and azithromycin for possible pneumonia Thoracentesis yesterday with 1 L removed. Strict I&O ordered Weight 158.5 kg up from 155 kilos yesterday 10/12: 160.4 kilos Lasix was restarted today 10/13: 159.4 kg holding lasix, entresto small 500 cc bolus ordered nephrology consulted, recs appreciated (2) Pneumonia: ?Code(s): J18.9 - Pneumonia, unspecified organism ?Status:?Inactive ?Assessment and Plan: 10/10/23: Chest x-ray from 10/09/2023 showing congestive heart failure, pulmonary edema, pleural effusion with the right being greater than the left, bilateral pulmonary infiltrates with central and basilar predominance greater on the right Patient started on Rocephin and azithromycin yesterday we will switch to oral cefdinir and azith
[2023-10-14] MEDS: SODIUM CHLORIDE 0.9% IV 500 ML 100 ML IV CONT (18:16)
[2023-10-14] MEDS: ATORVASTATIN 10 MG TABLET PO (20:27)
[2023-10-14] MEDS: FERROUS SULFATE 325 MG TABLET DR PO (20:27)
[2023-10-14] MEDS: MELATONIN 5 MG TABLET PO (20:37)
[2023-10-14] MEDS: INSULIN GLARGINE (*BKC) 100 UNITS/ML 12 UNITS SUB-Q (20:39)
[2023-10-14] MEDS: LATANOPROST 0.005% OP SOLN 2.5 ML BTL 1 DROP EACH EYE (20:40)
[2023-10-14 20:48] LABS: Glucose Point of Care 224 mg/dl (65-105)
[2023-10-15] VITALS (12 sets, daily range): BP systolic 112–131; BP diastolic 77–96; PULSE 81–108; RESP 20–22; TEMP 36.2–36.8; O2SAT 93–98
[2023-10-15] MEDS: ACETAMINOPHEN 325 MG TABLET 650 MG PO ×4 (00:34→21:11)
[2023-10-15 01:19] LABS: Sodium Urine Random 9 meq/L
[2023-10-15 01:19] LABS: Appearance Urine Clear (Clear); Bacteria Urine None Seen /hpf; Bilirubin Urine Negative (Negative); Blood Urine Negative (Negative); Color Urine Yellow (Yellow); Glucose Urine UA Negative (Negative); Ketones Urine Trace mg/dL (Negative); Leukocyte Esterase Ur 2+ LEU/UL (Negative); Need Manual Microscopic Reviewed; Nitrate Urine Negative (Negative); Protein Urine Trace mg/dL (Negative); Specific Grav Ur 1.017 (1.001-1.035); Squamous Epithelial Cell Urine Occasional /hpf (Few); Urobilinogen Urine 0.2 mg/dL (<2.0); WBC Urine 21-50 /hpf (0-3)
[2023-10-15 01:21] LABS: Add Urine Microscopic? YES
[2023-10-15 01:30] LABS: Creatinine Urine 133.7 mg/dL
[2023-10-15 03:05] LABS: Eosinophil Urine None Seen % (None Seen); Urine Eos QC 2nd Tech Confirmed
[2023-10-15 07:23] LABS: Glucose Point of Care 160 mg/dl (65-105)
[2023-10-15 07:34] LABS: Basophils Percent Auto 0.5 % (0.2-1.2); Eosinophils Absolute Auto 0.4 K/mm3 (0-0.3); Eosinophils Percent Auto 5.4 % (0-4.4); Hematocrit 32.2 % (37.0-47.0); Hemoglobin 9.2 g/dL (12.0-15.0); Immature Granulocyte Absolute 0.05 K/mm3 (0.00-0.031); Immature Granulocyte Percent A 0.8 % (0-0.5); Lymphocytes Absolute Auto 0.52 K/mm3 (0.9-3.2); Mean Corpuscular HGB Conc 28.6 g/dl (32-36); Mean Corpuscular Hemoglobin 31.4 pg (26-34); Mean Corpuscular Volume 109.9 fl (80-100); Mean Platelet Volume 10.9 fl (7.4-10.4); Monocytes Absolute Auto 0.6 K/mm3 (0.1-0.6); Monocytes Percent Auto 9.7 % (2.6-8.5); Neutrophils Absolute Auto 4.9 K/mm3 (1.3-6.7); Neutrophils Percent Auto 75.6 % (45.5-73.1); Platelet Count Result 144 k/mm3 (150-375); Red Blood Count 2.93 M/mm3 (4.2-5.4); Red Cell Distribution Width 15.6 % (11.5-14.5); White Blood Count 6.5 K/mm3 (4.5-10.0)
[2023-10-15 07:48] LABS: Alanine Aminotransferase 10 U/L (6-35); Albumin Level 3.3 g/dL (3.5-5.1); Alkaline Phosphatase 71 U/L (38-126); Anion Gap 3 mmol/L (4-12); Aspartate Amino Transferase 19 U/L (14-36); Bilirubin,Total 0.4 mg/dL (0.2-1.3); Blood Urea Nitrogen 71 mg/dL (7-17); Calcium 8.6 mg/dL (8.4-10.2); Carbon Dioxide 34 mmol/L (22-30); Chloride 98 mmol/L (98-107); Creatine Kinase 60 U/L (30-135); Estimated CRCL calculation 23 ml/min; Estimated Glomerular Filt Rate 16; Glucose 164 mg/dL (65-110); Potassium 4.9 mmol/L (3.4-5.0); Sodium 135 mmol/L (137-145)
[2023-10-15] MEDS: CEFDINIR 300 MG CAPSULE PO (08:42)
[2023-10-15] MEDS: CHOLECALCIFEROL 1,000 UNITS TABLET 1000 UNITS PO (08:42)
[2023-10-15] MEDS: DULoxetine HCL 30 MG CAPSULE.DR PO (08:42)
[2023-10-15] MEDS: METOPROLOL TARTRATE 50 MG TAB PO ×2 (08:42→21:05)
[2023-10-15] MEDS: CYANOCOBALAMIN 1,000 MCG TABLET 1000 MCG PO (08:42)
[2023-10-15] MEDS: MULTIVITAMINS THERAPEUTIC TAB (*BKC) 1 TABLET PO (08:42)
[2023-10-15] MEDS: SACCHAROMYCES BOULARDII 250 MG CAPSULE PO ×2 (08:42→16:17)
[2023-10-15] MEDS: TAMSULOSIN HCL 0.4 MG CAPSULE PO (08:42)
[2023-10-15] MEDS: ASPIRIN 81 MG ENTERIC TABLET PO (08:42)
[2023-10-15] MEDS: busPIRone HCL 2.5 MG TABLET 7.5 MG PO ×2 (08:42→16:16)
[2023-10-15] MEDS: PANTOPRAZOLE 40 MG TABLET PO (08:42)
[2023-10-15] MEDS: POTASSIUM CHLORIDE 20 MEQ ER TABLET PO (08:43)
[2023-10-15] MEDS: AZITHROMYCIN 250 MG TABLET 500 MG PO (08:43)
[2023-10-15] MEDS: TRIAMCINOLONE ACET 0.1% OINT 15 GM TUBE 1 APPLIC TOPICAL ×2 (08:43→16:17)
[2023-10-15] MEDS: ASCORBIC ACID 500 MG TABLET 1000 MG PO (08:43)
[2023-10-15] MEDS: CALCIUM CARBONATE (OSCAL) 500 MG TABLET PO (08:43)
[2023-10-15] MEDS: MONTELUKAST SODIUM 10 MG TABLET PO (08:43)
[2023-10-15] MEDS: FLUTICASONE/UMECLIDIN/VILANTER 100-62.5-25 MCG ELLIPTA 1 PUFF INHALATION (08:48)
[2023-10-15 10:39] LABS: Anisocytosis 1+; Basophilic Stippling 1+; Platelet Estimate Adequate (Adequate); Polychromasia 1+; Schistocytes None Seen
--- NOTE | 2023-10-15 10:50 | PM.PNPUL ---
Progress Note: A&P Assessment and Plan (1) Acute on chronic respiratory failure with hypoxia and hypercapnia: Code(s): J96.21 - Acute and chronic respiratory failure with hypoxia; J96.22 - Acute and chronic respiratory failure with hypercapnia Status: Acute Assessment and Plan: A 73-year-old female patient with morbid obesity and obstructive sleep apnea, who has been non-compliant with her BiPAP support, was admitted with symptoms of shortness of breath, bilateral pleural effusion, mild pulmonary edema, and acute on chronic hypercapnic respiratory failure. The patient appears to be responding to the current treatment plan, which includes ventilatory support with BiPAP, supplemental oxygen, and diuretics. She has also undergone a thoracentesis, although no fluid analysis is currently available. The patient's current hospitalization was triggered by congestive heart failure along with bilateral pleural effusions. She has a known history of sleep apnea and secondary pulmonary hypertension. Her untreated sleep apnea is also a contributing factor to her congestive heart failure. Patient did not have pleural fluid analysis done. On pleural fluid culture the preliminary anaerobic bilateral report indicated rare Gram-positive cocci. Anaerobic bottle negative so far. Vancomycin has been discontinued as patient has no evidence of ongoing infection. Creatinine still trending higher. Overall respiratory status stable over the last 24 hours. Chest x-ray done earlier today showed bilateral pleural effusions unchanged from prior studies. There was cardiomegaly which could be due to the increasing pericardial effusion as per the allergy report. The patient's creatinine is still rising. Diuretics have been held, she continues to be fluid positive. Plan: Continue with current regimen of BiPAP support, supplemental oxygen, out of bed to chair. I will probably discontinue antibiotics as I see no evidence of respiratory tract infection. Case was discussed with the hospitalist. (2) Atrial fibrillation with rapid ventricular response: Code(s): I48.91 - Unspecified atrial fibrillation Status: Acute (3) Acute exacerbation of CHF (congestive heart failure): Qualifiers: Heart failure type: unspecified Qualified Code(s): I50.9 - Heart failure, unspecified Code(s): I50.9 - Heart failure, unspecified Status: Acute (4) Acute kidney injury: Code(s): N17.9 - Acute kidney failure, unspecified Status: Acute (5) Chronic respiratory failure with hypoxia and hypercapnia: Code(s): J96.11 - Chronic respiratory failure with hypoxia; J96.12 - Chronic respiratory failure with hypercapnia Status: Acute (6) Obstructive sleep apnea: Onset Date: ~2014 Code(s): G47.33 - Obstructive sleep apnea (adult) (pediatric) Status: Chronic (7) Morbid obesity: Onset Date: ~2009 Code(s): E66.01 - Morbid (severe) obesity due to excess calories Status: Chronic Subjective Date/time seen: 10/15/23 10:50 Interval history: Patient has no new respiratory symptoms. Tolerating BiPAP support at night with no issues. Afebrile. Complains of some generalized weakness. Underwent a chest x-ray earlier today. Creatinine is still trending higher. Exam Narrative: GENERAL APPEARANCE: Well developed, well nourished, alert and cooperative, morbidly obese who appears to be in mild respiratory distress while on supplemental oxygen, sitting in a chair a SKIN: Inspection of the skin reveals no rashes, ulcerations or petechiae. HEENT: Sclerae anicteric and conjunctivae pink and moist. Extraocular movements were intact and pupils were equal, round, and reactive to light. The oral mucosa, hard and soft palate, tongue and posterior pharynx were normal. NECK: Supple. There was no thyroid enlargement, and no tenderness, or masses were felt. LUNGS: Dullness to percussion decreased breath sounds at
[2023-10-15 11:44] LABS: Glucose Point of Care 231 mg/dl (65-105)
--- NOTE | 2023-10-15 12:25 | P.PNNP_ITS ---
Progress Note: A&P Assessment and Plan (1) Acute kidney injury: Code(s): N17.9 - Acute kidney failure, unspecified Status: Acute Assessment and Plan: * suspect secondary to need for diuretic therapy to attain relative euvolemia with contributions from previous UTI and relative hypotension * evaluation to date noted: * urine electrolytes suggest prerenal azotemia * renal u/s consistent with CKD * urine eosinophils negative * CPK okay * follow trend of repeat labs and UOP (2) Stage 3b chronic kidney disease: Code(s): N18.32 - Chronic kidney disease, stage 3b Status: Chronic Assessment and Plan: * baseline creatinine usually runs ~ 1.1 - 1.6 mg/dL * secondary to her diabetes, hypertension, vascular disease, obstructive sleep apnea/pulmonary hypertension, and chronic CHF with the necessity for diuretic therapy along with age-related change (3) Acute on chronic respiratory failure with hypoxia and hypercapnia: Code(s): J96.21 - Acute and chronic respiratory failure with hypoxia; J96.22 - Acute and chronic respiratory failure with hypercapnia Status: Acute Assessment and Plan: * felt to be due to a combination of volume overload/CHF and pneumonia * Cardiology and Pulmonary following * see #4 and #5 (4) Pneumonia: Code(s): J18.9 - Pneumonia, unspecified organism Status: Acute Assessment and Plan: * as suggested by admission imaging * on antibiotics * BiPAP support as needed * continue supplemental oxygen * s/p thoracentesis (on 10/09) * Pulmonary following (5) Acute exacerbation of CHF (congestive heart failure): Qualifiers: Heart failure type: unspecified Qualified Code(s): I50.9 - Heart failure, unspecified Code(s): I50.9 - Heart failure, unspecified Status: Acute Assessment and Plan: * as evidenced by findings on admission * last Echo noted * given CXR findings and respiratory status -- resume diuretic therapy * follow I/Os, daily weights, and respiratory status * Cardiology following (6) UTI (urinary tract infection): Code(s): N39.0 - Urinary tract infection, site not specified Status: Acute Assessment and Plan: * as suggested by admission UA * urine culture with Proteus mirabilis * completed treatment (7) Hypertension: Code(s): I10 - Essential (primary) hypertension Status: Chronic Assessment and Plan: * running a bit on the soft side * BP medications with parameters * follow trend of hemodynamics (8) Type 2 diabetes mellitus with diabetic nephropathy, with long-term current use of insulin: Code(s): E11.21 - Type 2 diabetes mellitus with diabetic nephropathy; Z79.4 - intermediate (current) use of insulin Status: Chronic Assessment and Plan: * follow accu-cheks * glycemic control per hospitalists Will continue to follow. Subjective Date/time seen: 10/15/23 12:25 Interval history: Follow-up for acute kidney injruy/acute renal failure on chronic kidney disease. Renal function continues to worsen; respiratory status also appears tenuous as well with patient complaining of worsening shortness of breath and dyspnea with any exertional activity; also reports generalized weakness as well. Exam Narrative: General: large and somewhat ill appearing female in mild respiratory distress Heart: normal S1 and S2; no rub Lungs: coarse through out with bibasilar crackles Abdomen: s
--- NOTE | 2023-10-15 12:25 | PM.PNNEP ---
Progress Note: A&P Assessment and Plan (1) Acute kidney injury: Code(s): N17.9 - Acute kidney failure, unspecified Status: Acute Assessment and Plan: suspect secondary to need for diuretic therapy to attain relative euvolemia with contributions from previous UTI and relative hypotension evaluation to date noted: urine electrolytes suggest prerenal azotemia renal u/s consistent with CKD urine eosinophils negative CPK okay follow trend of repeat labs and UOP (2) Stage 3b chronic kidney disease: Code(s): N18.32 - Chronic kidney disease, stage 3b Status: Chronic Assessment and Plan: baseline creatinine usually runs ~ 1.1 - 1.6 mg/dL secondary to her diabetes, hypertension, vascular disease, obstructive sleep apnea/pulmonary hypertension, and chronic CHF with the necessity for diuretic therapy along with age-related change (3) Acute on chronic respiratory failure with hypoxia and hypercapnia: Code(s): J96.21 - Acute and chronic respiratory failure with hypoxia; J96.22 - Acute and chronic respiratory failure with hypercapnia Status: Acute Assessment and Plan: felt to be due to a combination of volume overload/CHF and pneumonia Cardiology and Pulmonary following see #4 and #5 (4) Pneumonia: Code(s): J18.9 - Pneumonia, unspecified organism Status: Acute Assessment and Plan: as suggested by admission imaging on antibiotics BiPAP support as needed continue supplemental oxygen s/p thoracentesis (on 10/09) Pulmonary following (5) Acute exacerbation of CHF (congestive heart failure): Qualifiers: Heart failure type: unspecified Qualified Code(s): I50.9 - Heart failure, unspecified Code(s): I50.9 - Heart failure, unspecified Status: Acute Assessment and Plan: as evidenced by findings on admission last Echo noted given CXR findings and respiratory status -- resume diuretic therapy follow I/Os, daily weights, and respiratory status Cardiology following (6) UTI (urinary tract infection): Code(s): N39.0 - Urinary tract infection, site not specified Status: Acute Assessment and Plan: as suggested by admission UA urine culture with Proteus mirabilis completed treatment (7) Hypertension: Code(s): I10 - Essential (primary) hypertension Status: Chronic Assessment and Plan: running a bit on the soft side BP medications with parameters follow trend of hemodynamics (8) Type 2 diabetes mellitus with diabetic nephropathy, with long-term current use of insulin: Code(s): E11.21 - Type 2 diabetes mellitus with diabetic nephropathy; Z79.4 - skilled nursing (current) use of insulin Status: Chronic Assessment and Plan: follow accu-cheks glycemic control per hospitalists Will continue to follow. Subjective Date/time seen: 10/15/23 12:25 Interval history: Follow-up for acute kidney injruy/acute renal failure on chronic kidney disease. Renal function continues to worsen; respiratory status also appears tenuous as well with patient complaining of worsening shortness of breath and dyspnea with any exertional activity; also reports generalized weakness as well. Exam Narrative: General: large and somewhat ill appearing female in mild respiratory distress Heart: normal S1 and S2; no rub Lungs: coarse through out with bibasilar crackles Abdomen: soft, nontender, nondistended, positive bowel sounds Extremities: no cyanosis or clubbing; 2+ edema Skin: warm and dry Objective Data Vital Signs Vital Signs: Vital Signs Temp Pulse Resp BP Pulse Ox O2 Del Method O2 Flow Rate 10/15/23 12:00 97.2 F L 87 22 H 112/77 94 10/15/23 08:00 85 10/15/23 08:00 93 Nasal Cannula 3 10/15/23 08:51 93 Nasal Cannula 3 10/15/23 05:12 98.2 F 83 22 H 131/84 94 10/15/23 04:00 81 10/15/23 00:00
[2023-10-15] MEDS: INSULIN ASPART (*BKC) 100 UNITS/ML SUB-Q ×3 (13:37→21:05)
[2023-10-15] MEDS: SACUBITRIL/VALSARTAN 24-26 MG TABLET 1 TAB PO (13:38)
[2023-10-15] MEDS: FUROSEMIDE 40 MG TABLET PO (13:38)
[2023-10-15] MEDS: acetaZOLAMIDE TAB 250 MG TABLET PO (16:16)
[2023-10-15] MEDS: RIVAROXABAN 20 MG TABLET PO (16:17)
--- NOTE | 2023-10-15 16:30 | PM.IMPN ---
Progress Note: A&P Assessment and Plan (1) Acute on chronic respiratory failure with hypoxia and hypercapnia: Code(s): J96.21 - Acute and chronic respiratory failure with hypoxia; J96.22 - Acute and chronic respiratory failure with hypercapnia Status: Acute (2) Atrial fibrillation with rapid ventricular response: Code(s): I48.91 - Unspecified atrial fibrillation Status: Acute (3) Acute exacerbation of CHF (congestive heart failure): Qualifiers: Heart failure type: unspecified Qualified Code(s): I50.9 - Heart failure, unspecified Code(s): I50.9 - Heart failure, unspecified Status: Acute Plan (1) Acute on chronic respiratory failure with hypoxia and hypercapnia: ?Code(s): J96.21 - Acute and chronic respiratory failure with hypoxia; J96.22 - Acute and chronic respiratory failure with hypercapnia ?Status:?Acute ?Assessment and Plan: 10/07/23: - CXR: 1. Airspace opacities in the mid and lower lung zones with worsening on the right, consistent with atelectasis versus pneumonia. 2.. Moderate-sized right and small left pleural effusions with worsening on the right. 3. Enlargement of the cardiac silhouette, likely a combination of cardiomegaly and pericardial effusion. - CT chest: - ABG, initial: pH 7.324, pCO2 59.4, pO2 60.3, HCO3 30.2, O2 sat 88.6% on 5L NC. - ABG, repeat: pH 7.382, pCO2 51.6, pO2 70, HCO3 30, O2 sat 93.6% on BiPAP. - placed on BiPAP in ED, continuing - continue home inhalers: Albuterol and Trelegy - plan for diagnostic thoracentesis of the right moderate pleural effusion, holding Xarelto for 24-48 hours prior to procedure.? SCDs started in lieu of anticoagulation. - DDx: CHF exacerbation, worsening pleural effusion, PNA. suspect CHF exacerbation/worsening pleural effusion in combination with recent viral illness. 10/08/23: Continue with current treatment plan 10/09/23: Suspect multifactorial due to exacerbation of CHF and possible pneumonia -CT chest shows mild pulmonary edema and moderate right and small left pleural effusions with moderate size pericardial effusion -repeat chest x-ray done today, right side looks a little worse -will continue Lasix 40 mg IV b.i.d. (she takes 40 mg at home orally). will add daily potassium -patient is incontinent, unable to estimate intake and output -will consult Cardiology due to acute exacerbation of CHF and pericardial effusion -continue home oxygen to keep oxygen greater than 90 -utilize BiPAP while sleeping -patient states she has a recent history of viral illness (RSV) although are viral panel was negative.? Due to her history, possible secondary bacterial pneumonia could be playing a part.? Will stop meropenem (was on for UTI) and start ceftriaxone and azithromycin -thoracentesis ordered, check procalcitonin 10/10/23: Continue Lasix 40 mg IV b.i.d. Cardiology consulted Continue Rocephin and azithromycin IV today and then switch over to cefdinir and azithromycin oral tomorrow Thoracentesis today Patient was refusing echocardiogram today 10/11: Holding Lasix with creatinine bump to 2.4 Cardiology following, recs appreciated On cefdinir and azithromycin for possible pneumonia Thoracentesis yesterday with 1 L removed. Strict I&O ordered Weight 158.5 kg up from 155 kilos yesterday 10/12: 160.4 kilos Lasix was restarted today 10/13: 159.4 kg holding lasix, entresto small 500 cc bolus ordered nephrology consulted, recs appreciated 10/14: 159.8 kg restart lasix and entresto pulmonology had recommended possible ECHO to assess pericardial effusion--which was already ordered this admission and patient refused. XR seems unchanged from previous. (2) Pneumonia: ?Code(s): J18.9 - Pneumonia, unspecified organism ?Status:?Inactive ?Assessment and Plan: 10/10/23: Chest x-ray from 10/09/2023 showing congestive heart failure, pulmonary edema, pleural effusion with the
[2023-10-15 16:41] LABS: Glucose Point of Care 226 mg/dl (65-105)
[2023-10-15] MEDS: LATANOPROST 0.005% OP SOLN 2.5 ML BTL 1 DROP EACH EYE (21:00)
[2023-10-15] MEDS: ATORVASTATIN 10 MG TABLET PO (21:04)
[2023-10-15] MEDS: FERROUS SULFATE 325 MG TABLET DR PO (21:05)
[2023-10-15] MEDS: INSULIN GLARGINE (*BKC) 100 UNITS/ML 15 UNITS SUB-Q (21:05)
[2023-10-15 21:10] LABS: Glucose Point of Care 206 mg/dl (65-105)
[2023-10-16] VITALS (15 sets, daily range): BP systolic 114–141; BP diastolic 59–96; PULSE 76–105; RESP 20–24; TEMP 36.4–36.7; O2SAT 90–99
[2023-10-16 06:32] LABS: Alanine Aminotransferase 10 U/L (6-35); Alkaline Phosphatase 60 U/L (38-126); Anion Gap 5 mmol/L (4-12); Aspartate Amino Transferase 20 U/L (14-36); Basophils Absolute Auto 0.1 K/mm3 (0.0-0.1); Bilirubin,Total 0.3 mg/dL (0.2-1.3); Blood Urea Nitrogen 65 mg/dL (7-17); Calcium 8.7 mg/dL (8.4-10.2); Carbon Dioxide 30 mmol/L (22-30); Chloride 101 mmol/L (98-107); Eosinophils Absolute Auto 0.3 K/mm3 (0-0.3); Eosinophils Percent Auto 5.9 % (0-4.4); Estimated CRCL calculation 22 ml/min; Estimated Glomerular Filt Rate 15; Glucose 156 mg/dL (65-110); Hematocrit 31.3 % (37.0-47.0); Immature Granulocyte Absolute 0.06 K/mm3 (0.00-0.031); Immature Granulocyte Percent A 1.1 % (0-0.5); Lymphocytes Absolute Auto 0.46 K/mm3 (0.9-3.2); Lymphocytes Percent Auto 8.8 % (18.3-44.2); Mean Corpuscular HGB Conc 28.8 g/dl (32-36); Mean Corpuscular Hemoglobin 31.5 pg (26-34); Mean Corpuscular Volume 109.4 fl (80-100); Mean Platelet Volume 10.9 fl (7.4-10.4); Monocytes Absolute Auto 0.5 K/mm3 (0.1-0.6); Monocytes Percent Auto 10.3 % (2.6-8.5); Neutrophils Absolute Auto 3.8 K/mm3 (1.3-6.7); Neutrophils Percent Auto 72.9 % (45.5-73.1); Platelet Count Result 134 k/mm3 (150-375); Potassium 5.1 mmol/L (3.4-5.0); Red Blood Count 2.86 M/mm3 (4.2-5.4); Red Cell Distribution Width 15.6 % (11.5-14.5); Sodium 136 mmol/L (137-145); White Blood Count 5.3 K/mm3 (4.5-10.0)
[2023-10-16 07:13] LABS: Anisocytosis 1+; Basophilic Stippling 1+; Platelet Estimate Adequate (Adequate); Schistocytes None Seen
[2023-10-16 07:32] LABS: Glucose Point of Care 154 mg/dl (65-105)
[2023-10-16] MEDS: busPIRone HCL 2.5 MG TABLET 7.5 MG PO ×2 (08:07→16:11)
[2023-10-16] MEDS: MULTIVITAMINS THERAPEUTIC TAB (*BKC) 1 TABLET PO (08:08)
[2023-10-16] MEDS: acetaZOLAMIDE TAB 250 MG TABLET PO (08:08)
[2023-10-16] MEDS: ASCORBIC ACID 500 MG TABLET 1000 MG PO (08:08)
[2023-10-16] MEDS: PANTOPRAZOLE 40 MG TABLET PO (08:08)
[2023-10-16] MEDS: ASPIRIN 81 MG ENTERIC TABLET PO (08:08)
[2023-10-16] MEDS: DULoxetine HCL 30 MG CAPSULE.DR PO (08:08)
[2023-10-16] MEDS: CYANOCOBALAMIN 1,000 MCG TABLET 1000 MCG PO (08:08)
[2023-10-16] MEDS: SACCHAROMYCES BOULARDII 250 MG CAPSULE PO ×2 (08:08→16:11)
[2023-10-16] MEDS: FUROSEMIDE 40 MG TABLET PO (08:09)
[2023-10-16] MEDS: METOPROLOL TARTRATE 50 MG TAB PO ×2 (08:09→20:21)
[2023-10-16] MEDS: CALCIUM CARBONATE (OSCAL) 500 MG TABLET PO (08:09)
[2023-10-16] MEDS: MONTELUKAST SODIUM 10 MG TABLET PO (08:09)
[2023-10-16] MEDS: CHOLECALCIFEROL 1,000 UNITS TABLET 1000 UNITS PO (08:09)
[2023-10-16] MEDS: SACUBITRIL/VALSARTAN 24-26 MG TABLET 1 TAB PO ×2 (08:09→20:22)
[2023-10-16] MEDS: TAMSULOSIN HCL 0.4 MG CAPSULE PO (08:09)
[2023-10-16] MEDS: POTASSIUM CHLORIDE 20 MEQ ER TABLET PO (08:09)
[2023-10-16] MEDS: FLUTICASONE/UMECLIDIN/VILANTER 100-62.5-25 MCG ELLIPTA 1 PUFF INHALATION (08:11)
--- NOTE | 2023-10-16 08:12 | PM.IMPN ---
Progress Note: A&P Assessment and Plan (1) Acute on chronic respiratory failure with hypoxia and hypercapnia: Code(s): J96.21 - Acute and chronic respiratory failure with hypoxia; J96.22 - Acute and chronic respiratory failure with hypercapnia Status: Acute (2) Atrial fibrillation with rapid ventricular response: Code(s): I48.91 - Unspecified atrial fibrillation Status: Acute (3) Acute exacerbation of CHF (congestive heart failure): Qualifiers: Heart failure type: unspecified Qualified Code(s): I50.9 - Heart failure, unspecified Code(s): I50.9 - Heart failure, unspecified Status: Acute Plan (1) Acute on chronic respiratory failure with hypoxia and hypercapnia: ?Code(s): J96.21 - Acute and chronic respiratory failure with hypoxia; J96.22 - Acute and chronic respiratory failure with hypercapnia ?Status:?Acute ?Assessment and Plan: 10/07/23: - CXR: 1. Airspace opacities in the mid and lower lung zones with worsening on the right, consistent with atelectasis versus pneumonia. 2.. Moderate-sized right and small left pleural effusions with worsening on the right. 3. Enlargement of the cardiac silhouette, likely a combination of cardiomegaly and pericardial effusion. - CT chest: - ABG, initial: pH 7.324, pCO2 59.4, pO2 60.3, HCO3 30.2, O2 sat 88.6% on 5L NC. - ABG, repeat: pH 7.382, pCO2 51.6, pO2 70, HCO3 30, O2 sat 93.6% on BiPAP. - placed on BiPAP in ED, continuing - continue home inhalers: Albuterol and Trelegy - plan for diagnostic thoracentesis of the right moderate pleural effusion, holding Xarelto for 24-48 hours prior to procedure.? SCDs started in lieu of anticoagulation. - DDx: CHF exacerbation, worsening pleural effusion, PNA. suspect CHF exacerbation/worsening pleural effusion in combination with recent viral illness. 10/08/23: Continue with current treatment plan 10/09/23: Suspect multifactorial due to exacerbation of CHF and possible pneumonia -CT chest shows mild pulmonary edema and moderate right and small left pleural effusions with moderate size pericardial effusion -repeat chest x-ray done today, right side looks a little worse -will continue Lasix 40 mg IV b.i.d. (she takes 40 mg at home orally). will add daily potassium -patient is incontinent, unable to estimate intake and output -will consult Cardiology due to acute exacerbation of CHF and pericardial effusion -continue home oxygen to keep oxygen greater than 90 -utilize BiPAP while sleeping -patient states she has a recent history of viral illness (RSV) although are viral panel was negative.? Due to her history, possible secondary bacterial pneumonia could be playing a part.? Will stop meropenem (was on for UTI) and start ceftriaxone and azithromycin -thoracentesis ordered, check procalcitonin 10/10/23: Continue Lasix 40 mg IV b.i.d. Cardiology consulted Continue Rocephin and azithromycin IV today and then switch over to cefdinir and azithromycin oral tomorrow Thoracentesis today Patient was refusing echocardiogram today 10/11: Holding Lasix with creatinine bump to 2.4 Cardiology following, recs appreciated On cefdinir and azithromycin for possible pneumonia Thoracentesis yesterday with 1 L removed. Strict I&O ordered Weight 158.5 kg up from 155 kilos yesterday 10/12: 160.4 kilos Lasix was restarted today 10/13: 159.4 kg holding lasix, entresto small 500 cc bolus ordered nephrology consulted, recs appreciated 10/14: 159.8 kg restart lasix and entresto pulmonology had recommended possible ECHO to assess pericardial effusion--which was already ordered this admission and patient refused. XR seems unchanged from previous. 10/15: 163.8 kg Lasix 40 mg PO daily---will see how her breathing is today. She may need increased lasix dose. Continues on BiPAP at night tolerating settings 14/03 with a rate of 14 Nasal cannula 3 L. Titrate to maintain SpO2 greater than 90
[2023-10-16] MEDS: TRIAMCINOLONE ACET 0.1% OINT 15 GM TUBE 1 APPLIC TOPICAL ×2 (08:21→16:28)
[2023-10-16] MEDS: SODIUM ZIRCONIUM CYCLOSILICATE 5 GM POWD.PACK PO (08:22)
[2023-10-16] MEDS: ACETAMINOPHEN 325 MG TABLET 650 MG PO ×3 (08:46→16:11)
--- NOTE | 2023-10-16 10:25 | PM.PNPUL ---
Progress Note: A&P Assessment and Plan (1) Acute on chronic respiratory failure with hypoxia and hypercapnia: Code(s): J96.21 - Acute and chronic respiratory failure with hypoxia; J96.22 - Acute and chronic respiratory failure with hypercapnia Status: Acute Assessment and Plan: A 73-year-old female patient with morbid obesity and obstructive sleep apnea, who has been non-compliant with her BiPAP support, was admitted with symptoms of shortness of breath, bilateral pleural effusion, mild pulmonary edema, and acute on chronic hypercapnic respiratory failure. The patient appears to be responding to the current treatment plan, which includes ventilatory support with BiPAP, supplemental oxygen, and diuretics. She has also undergone a thoracentesis, although no fluid analysis is currently available. The patient's current hospitalization was triggered by congestive heart failure along with bilateral pleural effusions. She has a known history of sleep apnea and secondary pulmonary hypertension. Her untreated sleep apnea is also a contributing factor to her congestive heart failure. Patient did not have pleural fluid analysis done. On pleural fluid culture the preliminary anaerobic bilateral report indicated rare Gram-positive cocci. Anaerobic bottle negative so far. Vancomycin has been discontinued as patient has no evidence of ongoing infection. Creatinine still trending higher. Overall respiratory status stable over the last 24 hours. Chest x-ray done yesterday showed bilateral pleural effusions unchanged from prior studies. There was cardiomegaly which could be due to the increasing pericardial effusion as per the radiology report. The patient's creatinine is still rising. Diuretic restarted. Abdominal ultrasound showed ascites. Plan: Continue with current regimen of BiPAP support, supplemental oxygen, out of bed to chair. Will continue to monitor the respiratory status. Case was discussed with the hospitalist. (2) Atrial fibrillation with rapid ventricular response: Code(s): I48.91 - Unspecified atrial fibrillation Status: Acute (3) Acute exacerbation of CHF (congestive heart failure): Qualifiers: Heart failure type: unspecified Qualified Code(s): I50.9 - Heart failure, unspecified Code(s): I50.9 - Heart failure, unspecified Status: Acute (4) Acute kidney injury: Code(s): N17.9 - Acute kidney failure, unspecified Status: Acute (5) Chronic respiratory failure with hypoxia and hypercapnia: Code(s): J96.11 - Chronic respiratory failure with hypoxia; J96.12 - Chronic respiratory failure with hypercapnia Status: Acute (6) Obstructive sleep apnea: Onset Date: ~2014 Code(s): G47.33 - Obstructive sleep apnea (adult) (pediatric) Status: Chronic (7) Morbid obesity: Onset Date: ~2009 Code(s): E66.01 - Morbid (severe) obesity due to excess calories Status: Chronic Subjective Date/time seen: 10/16/23 10:25 Interval history: Patient reports no new respiratory symptoms. Using BiPAP support every night. Creatinine trending higher. Review of Systems Review of Systems: All systems reviewed & are unremarkable except as noted in HPI and below (HPI and below) Exam Narrative: GENERAL APPEARANCE: Well developed, well nourished, alert and cooperative, morbidly obese who appears to be in mild respiratory distress while on supplemental oxygen, sitting in a chair a SKIN: Inspection of the skin reveals no rashes, ulcerations or petechiae. HEENT: Sclerae anicteric and conjunctivae pink and moist. Extraocular movements were intact and pupils were equal, round, and reactive to light. The oral mucosa, hard and soft palate, tongue and posterior pharynx were normal. NECK: Supple. There was no thyroid enlargement, and no tenderness, or masses were felt. LUNGS: Dullness to percussion decreased breath sounds at right base posteriorly CARDIAC
[2023-10-16 11:40] LABS: Glucose Point of Care 190 mg/dl (65-105)
--- NOTE | 2023-10-16 12:23 | P.PNNP_ITS ---
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 * follow trend of repeat labs and UOP (2) Stage 3b chronic kidney disease: Code(s): N18.32 - Chronic kidney disease, stage 3b Status: Chronic Assessment and Plan: * baseline creatinine usually runs ~ 1.1 - 1.6 mg/dL * secondary to her diabetes, hypertension, vascular disease, obstructive sleep apnea/pulmonary hypertension, and chronic CHF with the necessity for diuretic therapy along with age-related change (3) Acute on chronic respiratory failure with hypoxia and hypercapnia: Code(s): J96.21 - Acute and chronic respiratory failure with hypoxia; J96.22 - Acute and chronic respiratory failure with hypercapnia Status: Acute Assessment and Plan: * felt to be due to a combination of volume overload/CHF and pneumonia * Cardiology and Pulmonary following * see #4 and #5 (4) Pneumonia: Code(s): J18.9 - Pneumonia, unspecified organism Status: Acute Assessment and Plan: * as suggested by admission imaging * on antibiotics * BiPAP support as needed * continue supplemental oxygen * s/p thoracentesis (on 10/09) * Pulmonary following (5) Acute exacerbation of CHF (congestive heart failure): Qualifiers: Heart failure type: unspecified Qualified Code(s): I50.9 - Heart failure, unspecified Code(s): I50.9 - Heart failure, unspecified Status: Acute Assessment and Plan: * as evidenced by findings on admission * last Echo noted * back on diuretic therapy * follow I/Os, daily weights, and respiratory status * Cardiology following (6) UTI (urinary tract infection): Code(s): N39.0 - Urinary tract infection, site not specified Status: Acute Assessment and Plan: * as suggested by admission UA * urine culture with Proteus mirabilis * completed treatment (7) Hypertension: Code(s): I10 - Essential (primary) hypertension Status: Chronic Assessment and Plan: * running a bit on the soft side * BP medications with parameters * follow trend of hemodynamics (8) Type 2 diabetes mellitus with diabetic nephropathy, with long-term current use of insulin: Code(s): E11.21 - Type 2 diabetes mellitus with diabetic nephropathy; 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 Subjective Date/time seen: 10/16/23 12:23 Interval history: Follow-up for acute kidney injruy/acute renal failure on chronic kidney disease. Breathing/respiratory status seems about the same -- no worse but not really any better; reports better breathing while sitting up in chair as opposed to laying in bed; feels that LE edema may be a bit worse today; renal function a bit worse by AM labs as well. Exam Narrative: General: large and somewhat ill appearing fe
--- NOTE | 2023-10-16 12:23 | PM.PNNEP ---
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 follow trend of repeat labs and UOP (2) Stage 3b chronic kidney disease: Code(s): N18.32 - Chronic kidney disease, stage 3b Status: Chronic Assessment and Plan: baseline creatinine usually runs ~ 1.1 - 1.6 mg/dL secondary to her diabetes, hypertension, vascular disease, obstructive sleep apnea/pulmonary hypertension, and chronic CHF with the necessity for diuretic therapy along with age-related change (3) Acute on chronic respiratory failure with hypoxia and hypercapnia: Code(s): J96.21 - Acute and chronic respiratory failure with hypoxia; J96.22 - Acute and chronic respiratory failure with hypercapnia Status: Acute Assessment and Plan: felt to be due to a combination of volume overload/CHF and pneumonia Cardiology and Pulmonary following see #4 and #5 (4) Pneumonia: Code(s): J18.9 - Pneumonia, unspecified organism Status: Acute Assessment and Plan: as suggested by admission imaging on antibiotics BiPAP support as needed continue supplemental oxygen s/p thoracentesis (on 10/09) Pulmonary following (5) Acute exacerbation of CHF (congestive heart failure): Qualifiers: Heart failure type: unspecified Qualified Code(s): I50.9 - Heart failure, unspecified Code(s): I50.9 - Heart failure, unspecified Status: Acute Assessment and Plan: as evidenced by findings on admission last Echo noted back on diuretic therapy follow I/Os, daily weights, and respiratory status Cardiology following (6) UTI (urinary tract infection): Code(s): N39.0 - Urinary tract infection, site not specified Status: Acute Assessment and Plan: as suggested by admission UA urine culture with Proteus mirabilis completed treatment (7) Hypertension: Code(s): I10 - Essential (primary) hypertension Status: Chronic Assessment and Plan: running a bit on the soft side BP medications with parameters follow trend of hemodynamics (8) Type 2 diabetes mellitus with diabetic nephropathy, with long-term current use of insulin: Code(s): E11.21 - Type 2 diabetes mellitus with diabetic nephropathy; Z79.4 - MCFP (current) use of insulin Status: Chronic Assessment and Plan: follow accu-cheks glycemic control per hospitalists Will continue to follow. Subjective Date/time seen: 10/16/23 12:23 Interval history: Follow-up for acute kidney injruy/acute renal failure on chronic kidney disease. Breathing/respiratory status seems about the same -- no worse but not really any better; reports better breathing while sitting up in chair as opposed to laying in bed; feels that LE edema may be a bit worse today; renal function a bit worse by AM labs as well. Exam Narrative: General: large and somewhat ill appearing female in NAD Heart: normal S1 and S2; no rub Lungs: coarse throughout with bibasilar crackles Abdomen: soft, nontender, nondistended, positive bowel sounds Extremities: no cyanosis or clubbing; 2+ edema Skin: warm and intact Objective Data Vital Signs Vital Signs: Vital Signs Temp Pulse Resp BP Pulse Ox O2 Del Method O2 Flow Rate 10/16/23 12:00 97.5 F L 95 22 H 114/59 L 92 10/16/23 08:00 93 10/16/23 08:00 93 Nasal Cannula 4 10/16/23 08:44 9
[2023-10-16 16:07] LABS: Glucose Point of Care 176 mg/dl (65-105)
[2023-10-16] MEDS: RIVAROXABAN 20 MG TABLET PO (16:11)
--- NOTE | 2023-10-16 16:34 | PC.NURSE ---
Respiratory at bedside drawing ABG's.
[2023-10-16 17:01] LABS: Alveolar/Arterial O2 Gradient 147.3 mmHg; Base Excess ABG -0.3 mEq/l (+/-2.0); Carboxyhemoglobin 1.3 % THb (0-2.0); Fractional Inspired Oxygen 36 %; HCO3 ABG 28.1 mEq/l (22.0-26.0); Methemoglobin ABG 0.3 %THb (0-1.5); Oxygen Content ABG 8.3 %vol (16.0-22.0); PO2 FiO2 Ratio Arterial Blood 0.89 %; Reduced Hemoglobin 42.1 %THb (0-5.0); Total Hemoglobin 10.5 g/dL (12.0-18.0)
[2023-10-16 17:09] LABS: pH ABG 7.243 (7.350-7.450)
[2023-10-16 17:10] LABS: PCO2 ABG 66.5 mmHg (35.0-45.0); PO2 ABG 32.2 mmHg (80.0-100.0)
[2023-10-16 17:11] LABS: Oxygen Saturation ABG 50.4 % (95.0-100.0)
[2023-10-16 17:12] LABS: Device NASAL CANNULA; Modified Allen's Test Pass; Oxyhemoglobin 56.3 % THb (90.0-100.0); Site Drawn LEFT RADIAL
[2023-10-16 18:24] LABS: Alveolar/Arterial O2 Gradient 119.8 mmHg; Base Excess ABG 1.3 mEq/l (+/-2.0); Carboxyhemoglobin 1.2 % THb (0-2.0); Fractional Inspired Oxygen 35 %; HCO3 ABG 27.9 mEq/l (22.0-26.0); Methemoglobin ABG 0.3 %THb (0-1.5); Oxygen Content ABG 13.4 %vol (16.0-22.0); Oxygen Saturation ABG 91.6 % (95.0-100.0); Oxyhemoglobin 91.4 % THb (90.0-100.0); PCO2 ABG 54.3 mmHg (35.0-45.0); PO2 ABG 66.6 mmHg (80.0-100.0); Reduced Hemoglobin 7.1 %THb (0-5.0); Total Hemoglobin 10.4 g/dL (12.0-18.0); pH ABG 7.329 (7.350-7.450)
[2023-10-16 18:25] LABS: Device BIPAP; Expiratory Pressure 10 cmH2O; Inspiratory Pressure 16 cmH2O; Modified Allen's Test Pass; Site Drawn RIGHT RADIAL
[2023-10-16] MEDS: ATORVASTATIN 10 MG TABLET PO (20:21)
[2023-10-16] MEDS: FERROUS SULFATE 325 MG TABLET DR PO (20:21)
[2023-10-16] MEDS: LATANOPROST 0.005% OP SOLN 2.5 ML BTL 1 DROP EACH EYE (20:23)
[2023-10-16] MEDS: INSULIN GLARGINE (*BKC) 100 UNITS/ML 15 UNITS SUB-Q (20:29)
[2023-10-16 21:17] LABS: Glucose Point of Care 179 mg/dl (65-105)
[2023-10-17] VITALS (10 sets, daily range): BP systolic 96–137; BP diastolic 64–89; PULSE 73–110; RESP 16–26; TEMP 35.9–36.6; O2SAT 93–99; BMI 10.0
[2023-10-17 07:41] LABS: Glucose Point of Care 141 mg/dl (65-105)
[2023-10-17] MEDS: FLUTICASONE/UMECLIDIN/VILANTER 100-62.5-25 MCG ELLIPTA 1 PUFF INHALATION (08:04)
[2023-10-17 08:20] LABS: Basophils Percent Auto 0.8 % (0.2-1.2); Eosinophils Absolute Auto 0.3 K/mm3 (0-0.3); Eosinophils Percent Auto 6.3 % (0-4.4); Hemoglobin 9.4 g/dL (12.0-15.0); Immature Granulocyte Absolute 0.03 K/mm3 (0.00-0.031); Immature Granulocyte Percent A 0.6 % (0-0.5); Lymphocytes Absolute Auto 0.47 K/mm3 (0.9-3.2); Lymphocytes Percent Auto 9.6 % (18.3-44.2); Mean Corpuscular HGB Conc 29.4 g/dl (32-36); Mean Corpuscular Hemoglobin 31.4 pg (26-34); Mean Platelet Volume 10.9 fl (7.4-10.4); Monocytes Absolute Auto 0.6 K/mm3 (0.1-0.6); Monocytes Percent Auto 12.6 % (2.6-8.5); Neutrophils Absolute Auto 3.4 K/mm3 (1.3-6.7); Neutrophils Percent Auto 70.1 % (45.5-73.1); Platelet Count Result 147 k/mm3 (150-375); Red Blood Count 2.99 M/mm3 (4.2-5.4); Red Cell Distribution Width 15.6 % (11.5-14.5); White Blood Count 4.9 K/mm3 (4.5-10.0)
--- NOTE | 2023-10-17 08:28 | P.PNIM_ITS ---
Progress Note: A&P Assessment and Plan (1) Acute on chronic respiratory failure with hypoxia and hypercapnia: Code(s): J96.21 - Acute and chronic respiratory failure with hypoxia; J96.22 - Acute and chronic respiratory failure with hypercapnia Status: Acute (2) Atrial fibrillation with rapid ventricular response: Code(s): I48.91 - Unspecified atrial fibrillation Status: Acute (3) Acute exacerbation of CHF (congestive heart failure): Qualifiers: Heart failure type: unspecified Qualified Code(s): I50.9 - Heart failure, unspecified Code(s): I50.9 - Heart failure, unspecified Status: Acute Plan (1) Acute on chronic respiratory failure with hypoxia and hypercapnia: ?Code(s): J96.21 - Acute and chronic respiratory failure with hypoxia; J96.22 - Acute and chronic respiratory failure with hypercapnia ?Status:?Acute ?Assessment and Plan: 10/07/23: - CXR: 1. Airspace opacities in the mid and lower lung zones with worsening on the right, consistent with atelectasis versus pneumonia. 2.. Moderate-sized right and small left pleural effusions with worsening on the right. 3. Enlargement of the cardiac silhouette, likely a combination of cardiomegaly and pericardial effusion. - CT chest: - ABG, initial: pH 7.324, pCO2 59.4, pO2 60.3, HCO3 30.2, O2 sat 88.6% on 5L NC. - ABG, repeat: pH 7.382, pCO2 51.6, pO2 70, HCO3 30, O2 sat 93.6% on BiPAP. - placed on BiPAP in ED, continuing - continue home inhalers: Albuterol and Trelegy - plan for diagnostic thoracentesis of the right moderate pleural effusion, holding Xarelto for 24-48 hours prior to procedure.? SCDs started in lieu of anticoagulation. - DDx: CHF exacerbation, worsening pleural effusion, PNA. suspect CHF exacerbation/worsening pleural effusion in combination with recent viral illness. 10/08/23: * Continue with current treatment plan 10/09/23: Suspect multifactorial due to exacerbation of CHF and possible pneumonia -CT chest shows mild pulmonary edema and moderate right and small left pleural effusions with moderate size pericardial effusion -repeat chest x-ray done today, right side looks a little worse -will continue Lasix 40 mg IV b.i.d. (she takes 40 mg at home orally). will add daily potassium -patient is incontinent, unable to estimate intake and output -will consult Cardiology due to acute exacerbation of CHF and pericardial effus ion -continue home oxygen to keep oxygen greater than 90 -utilize BiPAP while sleeping -patient states she has a recent history of viral illness (RSV) although are viral panel was negative.? Due to her history, possible secondary bacterial pneumonia could be playing a part.? Will stop meropenem (was on for UTI) and start ceftriaxone and azithromycin -thoracentesis ordered, check procalcitonin 10/10/23: * Continue Lasix 40 mg IV b.i.d. * Cardiology consulted * Continue Rocephin and azithromycin IV today and then switch over to cefdinir and azithromycin oral tomorrow * Thoracentesis today * Patient was refusing echocardiogram today 10/11: * Holding Lasix with creatinine bump to 2.4 * Cardiology following, recs appreciated * On cefdinir and azithromycin for possible pneumonia * Thoracentesis yesterday with 1 L removed. * Strict I&O ordered * Weight 158.5 kg up from 155 kilos yesterday 10/12: * 160.4 kilos * Lasix was restarted today 10/13: * 159.4 kg * holding lasix, entresto * small 500 cc bolus ordered * nephrology consulted, recs appreciated 10/14: * 159.8 kg * restart lasix and entresto
[2023-10-17 08:30] LABS: Alanine Aminotransferase 11 U/L (6-35); Albumin Level 3.3 g/dL (3.5-5.1); Alkaline Phosphatase 62 U/L (38-126); Anion Gap 4 mmol/L (4-12); Aspartate Amino Transferase 18 U/L (14-36); Bilirubin,Total 0.5 mg/dL (0.2-1.3); Blood Urea Nitrogen 63 mg/dL (7-17); Carbon Dioxide 32 mmol/L (22-30); Chloride 101 mmol/L (98-107); Estimated CRCL calculation 24 ml/min; Estimated Glomerular Filt Rate 16; Glucose 136 mg/dL (65-110); Potassium 5.1 mmol/L (3.4-5.0); Sodium 137 mmol/L (137-145)
[2023-10-17 08:45] LABS: Anisocytosis 1+; Hypochromasia 1+; Platelet Estimate Slightly Decreased (Adequate); Schistocytes None Seen
[2023-10-17] MEDS: PANTOPRAZOLE 40 MG TABLET PO (09:00)
[2023-10-17] MEDS: CYANOCOBALAMIN 1,000 MCG TABLET 1000 MCG PO (09:00)
[2023-10-17] MEDS: ASPIRIN 81 MG ENTERIC TABLET PO (09:00)
[2023-10-17] MEDS: METOPROLOL TARTRATE 50 MG TAB PO ×2 (09:01→20:04)
[2023-10-17] MEDS: DULoxetine HCL 30 MG CAPSULE.DR PO (09:01)
[2023-10-17] MEDS: ASCORBIC ACID 500 MG TABLET 1000 MG PO (09:01)
[2023-10-17] MEDS: MONTELUKAST SODIUM 10 MG TABLET PO (09:01)
[2023-10-17] MEDS: CALCIUM CARBONATE (OSCAL) 500 MG TABLET PO (09:01)
[2023-10-17] MEDS: SACCHAROMYCES BOULARDII 250 MG CAPSULE PO ×2 (09:01→17:18)
[2023-10-17] MEDS: busPIRone HCL 2.5 MG TABLET 7.5 MG PO ×2 (09:01→17:17)
[2023-10-17] MEDS: CHOLECALCIFEROL 1,000 UNITS TABLET 1000 UNITS PO (09:01)
[2023-10-17] MEDS: acetaZOLAMIDE TAB 250 MG TABLET PO (09:01)
[2023-10-17] MEDS: TAMSULOSIN HCL 0.4 MG CAPSULE PO (09:01)
[2023-10-17] MEDS: MULTIVITAMINS THERAPEUTIC TAB (*BKC) 1 TABLET PO (09:02)
[2023-10-17] MEDS: SACUBITRIL/VALSARTAN 24-26 MG TABLET 1 TAB PO ×2 (09:02→20:05)
[2023-10-17] MEDS: FUROSEMIDE 40 MG TABLET PO ×2 (09:02→17:18)
[2023-10-17 09:10] LABS: NT Pro B Type Natriuretic Pept 8320 pg/mL (19.9-100)
[2023-10-17 09:21] LABS: Free T4 Free Thyroxine 1.04 ng/mL (0.78-2.19)
[2023-10-17] MEDS: SODIUM ZIRCONIUM CYCLOSILICATE 5 GM POWD.PACK PO (09:40)
[2023-10-17] MEDS: TRIAMCINOLONE ACET 0.1% OINT 15 GM TUBE 1 APPLIC TOPICAL ×2 (09:41→18:00)
[2023-10-17] MEDS: ACETAMINOPHEN 325 MG TABLET 650 MG PO ×3 (09:43→18:00)
--- NOTE | 2023-10-17 10:17 | PM.PNNEP ---
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 follow trend of repeat labs and UOP (2) Stage 3b chronic kidney disease: Code(s): N18.32 - Chronic kidney disease, stage 3b Status: Chronic Assessment and Plan: baseline creatinine usually runs ~ 1.1 - 1.6 mg/dL secondary to her diabetes, hypertension, vascular disease, obstructive sleep apnea/pulmonary hypertension, and chronic CHF with the necessity for diuretic therapy along with age-related change (3) Acute on chronic respiratory failure with hypoxia and hypercapnia: Code(s): J96.21 - Acute and chronic respiratory failure with hypoxia; J96.22 - Acute and chronic respiratory failure with hypercapnia Status: Acute Assessment and Plan: felt to be due to a combination of volume overload/CHF and pneumonia Cardiology and Pulmonary following see #4 and #5 (4) Pneumonia: Code(s): J18.9 - Pneumonia, unspecified organism Status: Acute Assessment and Plan: as suggested by admission imaging on antibiotics BiPAP support as needed continue supplemental oxygen s/p thoracentesis (on 10/09) Pulmonary following (5) Acute exacerbation of CHF (congestive heart failure): Qualifiers: Heart failure type: unspecified Qualified Code(s): I50.9 - Heart failure, unspecified Code(s): I50.9 - Heart failure, unspecified Status: Acute Assessment and Plan: as evidenced by findings on admission last Echo noted back on diuretic therapy (lasix and acetazolamide) follow I/Os, daily weights, and respiratory status Cardiology following (6) UTI (urinary tract infection): Code(s): N39.0 - Urinary tract infection, site not specified Status: Acute Assessment and Plan: as suggested by admission UA urine culture with Proteus mirabilis completed treatment (7) Hypertension: Code(s): I10 - Essential (primary) hypertension Status: Chronic Assessment and Plan: running a bit on the soft side BP medications with parameters follow trend of hemodynamics (8) Type 2 diabetes mellitus with diabetic nephropathy, with long-term current use of insulin: Code(s): E11.21 - Type 2 diabetes mellitus with diabetic nephropathy; 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 Subjective Date/time seen: 10/17/23 10:17 Interval history: Follow-up for acute kidney injruy/acute renal failure on chronic kidney disease. Breathing/respiratory status seems stable if not a bit better; creatinine also slightly better with increased urine output noted in the last 24 hours (but BNP is higher today); LE edema/swelling appears about the same. Exam Narrative: General: large and somewhat ill appearing female in NAD Heart: normal S1 and S2; no rub Lungs: coarse throughout with bibasilar crackles Abdomen: soft, nontender, nondistended, positive bowel sounds Extremities: no cyanosis or clubbing; 2+ edema Skin: no rash Objective Data Vital Signs Vital Signs: Vital Signs Temp Pulse Resp BP Pulse Ox O2 Del Method O2 Flow Rate 10/17/23 08:00 Autopap 10/17/23 08:56 Nasal Cannula 4 10/17/23 09:01 99 10/17/23 08:01 73 16 97 BiPAP 10/17/23 06:00 97.7 F 98 24 H
--- NOTE | 2023-10-17 10:17 | P.PNNP_ITS ---
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 * follow trend of repeat labs and UOP (2) Stage 3b chronic kidney disease: Code(s): N18.32 - Chronic kidney disease, stage 3b Status: Chronic Assessment and Plan: * baseline creatinine usually runs ~ 1.1 - 1.6 mg/dL * secondary to her diabetes, hypertension, vascular disease, obstructive sleep apnea/pulmonary hypertension, and chronic CHF with the necessity for diuretic therapy along with age-related change (3) Acute on chronic respiratory failure with hypoxia and hypercapnia: Code(s): J96.21 - Acute and chronic respiratory failure with hypoxia; J96.22 - Acute and chronic respiratory failure with hypercapnia Status: Acute Assessment and Plan: * felt to be due to a combination of volume overload/CHF and pneumonia * Cardiology and Pulmonary following * see #4 and #5 (4) Pneumonia: Code(s): J18.9 - Pneumonia, unspecified organism Status: Acute Assessment and Plan: * as suggested by admission imaging * on antibiotics * BiPAP support as needed * continue supplemental oxygen * s/p thoracentesis (on 10/09) * Pulmonary following (5) Acute exacerbation of CHF (congestive heart failure): Qualifiers: Heart failure type: unspecified Qualified Code(s): I50.9 - Heart failure, unspecified Code(s): I50.9 - Heart failure, unspecified Status: Acute Assessment and Plan: * as evidenced by findings on admission * last Echo noted * back on diuretic therapy (lasix and acetazolamide) * follow I/Os, daily weights, and respiratory status * Cardiology following (6) UTI (urinary tract infection): Code(s): N39.0 - Urinary tract infection, site not specified Status: Acute Assessment and Plan: * as suggested by admission UA * urine culture with Proteus mirabilis * completed treatment (7) Hypertension: Code(s): I10 - Essential (primary) hypertension Status: Chronic Assessment and Plan: * running a bit on the soft side * BP medications with parameters * follow trend of hemodynamics (8) Type 2 diabetes mellitus with diabetic nephropathy, with long-term current use of insulin: Code(s): E11.21 - Type 2 diabetes mellitus with diabetic nephropathy; Z79.4 - roasterman (current) use of insulin Status: Chronic Assessment and Plan: * follow accu-cheks * glycemic control per hospitalists Will continue to follow. Subjective Date/time seen: 10/17/23 10:17 Interval history: Follow-up for acute kidney injruy/acute renal failure on chronic kidney disease. Breathing/respiratory status seems stable if not a bit better; creatinine also slightly better with increased urine output noted in the last 24 hours (but BNP is higher today); LE edema/swelling appears about the same. Exam Narrative: General: large and somewhat ill appearing female in NAD He
--- NOTE | 2023-10-17 10:43 | PM.PNPUL ---
Progress Note: A&P Assessment and Plan (1) Acute on chronic respiratory failure with hypoxia and hypercapnia: Code(s): J96.21 - Acute and chronic respiratory failure with hypoxia; J96.22 - Acute and chronic respiratory failure with hypercapnia Status: Acute Assessment and Plan: A 73-year-old female patient with morbid obesity and obstructive sleep apnea, who has been non-compliant with her BiPAP support, was admitted with symptoms of shortness of breath, bilateral pleural effusion, mild pulmonary edema, and acute on chronic hypercapnic respiratory failure. The patient appears to be responding to the current treatment plan, which includes ventilatory support with BiPAP, supplemental oxygen, and diuretics. She has also undergone a thoracentesis, although no fluid analysis is currently available. The patient's current hospitalization was triggered by congestive heart failure along with bilateral pleural effusions. She has a known history of sleep apnea and secondary pulmonary hypertension. Her untreated sleep apnea is also a contributing factor to her congestive heart failure. Patient did not have pleural fluid analysis done. On pleural fluid culture the preliminary anaerobic bilateral report indicated rare Gram-positive cocci. Anaerobic bottle negative so far. Vancomycin has been discontinued as patient has no evidence of ongoing infection. Creatinine still trending higher. Overall respiratory status stable over the last 24 hours. Chest x-ray done yesterday showed bilateral pleural effusions unchanged from prior studies. There was cardiomegaly which could be due to the increasing pericardial effusion as per the radiology report. The patient's creatinine is still rising. Diuretic restarted. Abdominal ultrasound showed ascites. Plan: Continue with current regimen of BiPAP support, supplemental oxygen, out of bed to chair. Will continue to monitor the respiratory status. Case was discussed with the hospitalist. 10/16/23? 10:25 Interval history: Patient reports no new respiratory symptoms.? Using BiPAP support every night.? Creatinine trending higher. ABG on 4 L 7.//33. patient was placed on BiPAP 16/10 and 35% FiO2 and 2 hours later blood gas was 7.33/54/67. 10/17/23: overall patient denies shortness of breath while sitting in the chair. She has minimal cough. When I enter the room she was on 5 L nasal cannula saturation 98%. I decreased her to 3 L nasal cannula her saturations were 95%. She states she is tolerating the hospital BiPAP with a rate of 14 and presure 16/10 with 35% FiO2. Her creatinine is 2.80. Her BUN is 63. Her BNP has increased from 4810 on 10/08 to 8320 today. Her weight today is 166.5 kg with an admission weight of 158 kg. Ins and outs demonstrate a cumulative positive 6.6 L. Patient does Lasix [address]day [address] a [address] zone amide 250 mg p.o. q.a.m. Plan: Patient has obesity hypoventilation syndrome with blood gas during the day of . on 4 L nasal cannula. She would benefit from noninvasive ventilation to prevent further deterioration and subsequent hospitalizations. (2) Obesity hypoventilation syndrome: Code(s): E66.2 - Morbid (severe) obesity with alveolar hypoventilation Status: Acute Assessment and Plan: A 73-year-old female patient with morbid obesity (BMI 67.1) and obstructive sleep apnea, who has been non-compliant with her BiPAP support, was admitted with symptoms of shortness of breath, bilateral pleural effusion, mild pulmonary edema, and acute on chronic hypercapnic respiratory failure. The patient appears to be responding to the current treatment plan, which includes ventilatory support with BiPAP, supplemental oxygen, and diuretics. She has also undergone a thoracentesis, although no fluid analysis is currently available. The patient's current hospitalization was triggered by congestive heart failure along with bilateral pleural effusions. She has a known hist
[2023-10-17 11:23] LABS: Glucose Point of Care 146 mg/dl (65-105)
[2023-10-17] MEDS: hydrOXYzine HCL 25 MG TABLET PO (15:09)
[2023-10-17 16:44] LABS: Glucose Point of Care 176 mg/dl (65-105)
[2023-10-17] MEDS: RIVAROXABAN 20 MG TABLET PO (17:17)
[2023-10-17] MEDS: PREGABALIN (*CRX) 50 MG CAPSULE PO (17:19)
[2023-10-17] MEDS: metOLazone 5 MG TABLET PO (18:00)
[2023-10-17] MEDS: ATORVASTATIN 10 MG TABLET PO (20:05)
[2023-10-17] MEDS: FERROUS SULFATE 325 MG TABLET DR PO (20:05)
[2023-10-17] MEDS: LATANOPROST 0.005% OP SOLN 2.5 ML BTL 1 DROP EACH EYE (20:05)
[2023-10-17] MEDS: INSULIN GLARGINE (*BKC) 100 UNITS/ML 15 UNITS SUB-Q (20:10)
[2023-10-17 20:33] LABS: Glucose Point of Care 184 mg/dl (65-105)
[2023-10-17] MEDS: MELATONIN 5 MG TABLET PO (22:22)
[2023-10-18] VITALS (17 sets, daily range): BP systolic 91–109; BP diastolic 54–64; PULSE 66–112; RESP 16–27; TEMP 36.4–36.8; O2SAT 93–98
[2023-10-18 06:22] LABS: Alveolar/Arterial O2 Gradient 93.9 mmHg; Base Excess ABG 4.5 mEq/l (+/-2.0); Fractional Inspired Oxygen 36 %; HCO3 ABG 31.8 mEq/l (22.0-26.0); Oxygen Content ABG 12.2 %vol (16.0-22.0); Oxygen Saturation ABG 95.7 % (95.0-100.0); Oxyhemoglobin 95.1 % THb (90.0-100.0); PO2 ABG 88.1 mmHg (80.0-100.0); PO2 FiO2 Ratio Arterial Blood 2.45 %; pH ABG 7.311 (7.350-7.450)
[2023-10-18 06:25] LABS: Device NON-INVASIVE VENT; Modified Allen's Test Pass; Non-Invasive Vent Rate 14 /MIN; PCO2 ABG 64.4 mmHg (35.0-45.0); Site Drawn LEFT RADIAL
[2023-10-18 06:26] LABS: Non-Invasive Expiratory Pressure 10 CMH2O; Non-Invasive Inspiratory Pressure 20 CMH2O
[2023-10-18 06:42] LABS: Basophils Percent Auto 0.9 % (0.2-1.2); Eosinophils Absolute Auto 0.4 K/mm3 (0-0.3); Eosinophils Percent Auto 7.9 % (0-4.4); Hematocrit 28.2 % (37.0-47.0); Hemoglobin 8.3 g/dL (12.0-15.0); Immature Granulocyte Absolute 0.04 K/mm3 (0.00-0.031); Immature Granulocyte Percent A 0.9 % (0-0.5); Immature Platelet Fraction Pct 5.8 % (0.9-11.2); Lymphocytes Absolute Auto 0.57 K/mm3 (0.9-3.2); Lymphocytes Percent Auto 12.9 % (18.3-44.2); Mean Corpuscular HGB Conc 29.4 g/dl (32-36); Mean Corpuscular Hemoglobin 31.8 pg (26-34); Mean Platelet Volume 11.2 fl (7.4-10.4); Monocytes Absolute Auto 0.6 K/mm3 (0.1-0.6); Neutrophils Absolute Auto 2.8 K/mm3 (1.3-6.7); Neutrophils Percent Auto 63.4 % (45.5-73.1); Platelet Count Result 141 k/mm3 (150-375); Red Blood Count 2.61 M/mm3 (4.2-5.4); Red Cell Distribution Width 15.3 % (11.5-14.5); White Blood Count 4.4 K/mm3 (4.5-10.0)
[2023-10-18 06:59] LABS: Alanine Aminotransferase 10 U/L (6-35); Albumin Level 2.8 g/dL (3.5-5.1); Alkaline Phosphatase 52 U/L (38-126); Anion Gap 0 mmol/L (4-12); Aspartate Amino Transferase 19 U/L (14-36); Bilirubin,Total 0.3 mg/dL (0.2-1.3); Blood Urea Nitrogen 63 mg/dL (7-17); Calcium 8.9 mg/dL (8.4-10.2); Carbon Dioxide 35 mmol/L (22-30); Chloride 100 mmol/L (98-107); Estimated CRCL calculation 25 ml/min; Estimated Glomerular Filt Rate 17; Glucose 114 mg/dL (65-110); Potassium 4.8 mmol/L (3.4-5.0); Sodium 135 mmol/L (137-145)
[2023-10-18 07:36] LABS: Glucose Point of Care 122 mg/dl (65-105)
[2023-10-18] MEDS: ACETAMINOPHEN 325 MG TABLET 650 MG PO ×2 (08:56→20:21)
[2023-10-18] MEDS: MONTELUKAST SODIUM 10 MG TABLET PO (08:57)
[2023-10-18] MEDS: acetaZOLAMIDE TAB 250 MG TABLET PO (08:57)
[2023-10-18] MEDS: FUROSEMIDE 40 MG TABLET PO (08:57)
[2023-10-18] MEDS: CALCIUM CARBONATE (OSCAL) 500 MG TABLET PO (08:57)
[2023-10-18] MEDS: PANTOPRAZOLE 40 MG TABLET PO (08:57)
[2023-10-18] MEDS: busPIRone HCL 2.5 MG TABLET 7.5 MG PO ×2 (08:57→17:38)
[2023-10-18] MEDS: SACUBITRIL/VALSARTAN 24-26 MG TABLET 1 TAB PO ×2 (08:57→20:16)
[2023-10-18] MEDS: DULoxetine HCL 30 MG CAPSULE.DR PO (08:57)
[2023-10-18] MEDS: TAMSULOSIN HCL 0.4 MG CAPSULE PO (08:57)
[2023-10-18] MEDS: CYANOCOBALAMIN 1,000 MCG TABLET 1000 MCG PO (08:58)
[2023-10-18] MEDS: SACCHAROMYCES BOULARDII 250 MG CAPSULE PO ×2 (08:58→17:39)
[2023-10-18] MEDS: ASPIRIN 81 MG ENTERIC TABLET PO (08:58)
[2023-10-18] MEDS: CHOLECALCIFEROL 1,000 UNITS TABLET 1000 UNITS PO (08:58)
[2023-10-18] MEDS: ASCORBIC ACID 500 MG TABLET 1000 MG PO (08:58)
[2023-10-18] MEDS: MULTIVITAMINS THERAPEUTIC TAB (*BKC) 1 TABLET PO (08:58)
[2023-10-18] MEDS: METOPROLOL TARTRATE 50 MG TAB PO ×2 (08:58→20:16)
[2023-10-18] MEDS: metOLazone 5 MG TABLET PO (08:59)
[2023-10-18] MEDS: TRIAMCINOLONE ACET 0.1% OINT 15 GM TUBE 1 APPLIC TOPICAL ×2 (09:00→17:39)
[2023-10-18] MEDS: SODIUM ZIRCONIUM CYCLOSILICATE 5 GM POWD.PACK PO (09:18)
[2023-10-18] MEDS: FUROSEMIDE INJ 40 MG/4 ML VIAL IV PUSH (09:18)
[2023-10-18 09:21] LABS: NT Pro B Type Natriuretic Pept 7920 pg/mL (19.9-100)
--- NOTE | 2023-10-18 10:36 | PM.PNPUL ---
Progress Note: A&P Assessment and Plan (1) Obesity hypoventilation syndrome: Code(s): E66.2 - Morbid (severe) obesity with alveolar hypoventilation Status: Acute Assessment and Plan: A 73-year-old female patient with morbid obesity (BMI 67.1) and obstructive sleep apnea, who has been non-compliant with her BiPAP support, was admitted with symptoms of shortness of breath, bilateral pleural effusion, mild pulmonary edema, and acute on chronic hypercapnic respiratory failure. The patient appears to be responding to the current treatment plan, which includes ventilatory support with BiPAP, supplemental oxygen, and diuretics. She has also undergone a thoracentesis, although no fluid analysis is currently available. The patient's current hospitalization was triggered by congestive heart failure along with bilateral pleural effusions. She has a known history of sleep apnea and secondary pulmonary hypertension. Her untreated sleep apnea is also a contributing factor to her congestive heart failure. Patient did not have pleural fluid analysis done. On pleural fluid culture the preliminary anaerobic bilateral report indicated rare Gram-positive bacilli. Anaerobic bottle negative so far. Vancomycin has been discontinued as patient has no evidence of ongoing infection. Creatinine still trending higher. Overall respiratory status stable over the last 24 hours. Chest x-ray done yesterday showed bilateral pleural effusions unchanged from prior studies. There was cardiomegaly which could be due to the increasing pericardial effusion as per the radiology report. The patient's creatinine is still rising. Diuretic restarted. Abdominal ultrasound showed ascites. Plan: Continue with current regimen of BiPAP support, supplemental oxygen, out of bed to chair. Will continue to monitor the respiratory status. Case was discussed with the hospitalist. 10/16/23? 10:25 Interval history: Patient reports no new respiratory symptoms.? Using BiPAP support every night.? Creatinine trending higher. ABG on 4 L 7.//33. patient was placed on BiPAP 16/10 and 35% FiO2 and 2 hours later blood gas was 7.33/54/67. 10/17/23: overall patient denies shortness of breath while sitting in the chair. She has minimal cough. When I enter the room she was on 5 L nasal cannula saturation 98%. I decreased her to 3 L nasal cannula her saturations were 95%. She states she is tolerating the hospital BiPAP with a rate of 14 and presure 16/10 with 35% FiO2. Her creatinine is 2.80. Her BUN is 63. Her BNP has increased from 4810 on 10/08 to 8320 today. Her weight today is 166.5 kg with an admission weight of 158 kg. Ins and outs demonstrate a cumulative positive 6.6 L. Patient does Lasix 40 p.o. q.day and acetozolamide 250 mg p.o. q.a.m. Patient has obesity hypoventilation syndrome (BMI 67.1) with blood gas during the day of 7. on 4 L nasal cannula. She would benefit from noninvasive ventilation to prevent further deterioration and subsequent hospitalizations. TSH 2.77 and free T4 1.04 on 10/17/2023. She has diastolic dysfunction and diuresis has been initiated but is limited by chronic renal insufficiency. She has pulmonary hypertension dating back to 02/27/2018 with a PASP of 50. Plan: Patient would benefit from noninvasive ventilation to prevent further deterioration and subsequent hospitalizations. Current plans are for her to return to [facility] as [facility] resident versus SNF. Patient's blood gas on BiPAP 14/03 and 35% FiO2 was 7.33/. I will increase her IPAP pressure to 20 and increase her FiO2 to 36% and perform an overnight oximetry an ABG prior to removal. Patient has no history of asthma or COPD. She is a never smoker. In the Pulmonary Clinic on 03/16/2023 she was given a trial of Flovent for possible small airways disease seen on a CT scan. She states that her current bronchodilators provide her no benefit. I will discontin
--- NOTE | 2023-10-18 11:08 | PM.PNNEP ---
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 follow trend of repeat labs and UOP (2) Stage 3b chronic kidney disease: Code(s): N18.32 - Chronic kidney disease, stage 3b Status: Chronic Assessment and Plan: baseline creatinine usually runs ~ 1.1 - 1.6 mg/dL secondary to her diabetes, hypertension, vascular disease, obstructive sleep apnea/pulmonary hypertension, and chronic CHF with the necessity for diuretic therapy along with age-related change (3) Acute on chronic respiratory failure with hypoxia and hypercapnia: Code(s): J96.21 - Acute and chronic respiratory failure with hypoxia; J96.22 - Acute and chronic respiratory failure with hypercapnia Status: Acute Assessment and Plan: felt to be due to a combination of volume overload/CHF and pneumonia Cardiology and Pulmonary following see #4 and #5 (4) Pneumonia: Code(s): J18.9 - Pneumonia, unspecified organism Status: Acute Assessment and Plan: as suggested by admission imaging on antibiotics BiPAP support as needed continue supplemental oxygen s/p thoracentesis (on 10/09) Pulmonary following (5) Acute exacerbation of CHF (congestive heart failure): Qualifiers: Heart failure type: unspecified Qualified Code(s): I50.9 - Heart failure, unspecified Code(s): I50.9 - Heart failure, unspecified Status: Acute Assessment and Plan: as evidenced by findings on admission last Echo noted back on diuretic therapy (loop diuretics and acetazolamide) follow I/Os, daily weights, and respiratory status Cardiology following (6) UTI (urinary tract infection): Code(s): N39.0 - Urinary tract infection, site not specified Status: Acute Assessment and Plan: as suggested by admission UA urine culture with Proteus mirabilis completed treatment (7) Hypertension: Code(s): I10 - Essential (primary) hypertension Status: Chronic Assessment and Plan: running a bit on the soft side BP medications with parameters follow trend of hemodynamics (8) Type 2 diabetes mellitus with diabetic nephropathy, with long-term current use of insulin: Code(s): E11.21 - Type 2 diabetes mellitus with diabetic nephropathy; Z79.4 - watermaster (current) use of insulin Status: Chronic Assessment and Plan: follow accu-cheks glycemic control per hospitalists Will continue to follow. Subjective Date/time seen: 10/18/23 11:08 Interval history: Follow-up for acute kidney injruy/acute renal failure on chronic kidney disease. Renal function remains relatively stable inspite of ongoing diuresis; breathing/respiratory status also seems to be slowly improving as well; fluctuating urine output noted but clinically seems better in general. Exam Narrative: General: large and somewhat ill appearing female in NAD Heart: normal S1 and S2; no rub Lungs: coarse throughout with decreased breath sounds at bases Abdomen: soft, nontender, nondistended, positive bowel sounds Extremities: no cyanosis or clubbing; 2+ edema Skin: no nodules Objective Data Vital Signs Vital Signs: Vital Signs Temp Pulse Resp BP Pulse Ox O2 Del Method O2 Flow Rate 10/18/23 08:58 100 10/18/23 06:00 97.8 F 71 16 91/54 L 97 10/18/23 04:32 73 21 H 97 BiPAP 10/18/23 04:03
--- NOTE | 2023-10-18 11:08 | P.PNNP_ITS ---
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 * follow trend of repeat labs and UOP (2) Stage 3b chronic kidney disease: Code(s): N18.32 - Chronic kidney disease, stage 3b Status: Chronic Assessment and Plan: * baseline creatinine usually runs ~ 1.1 - 1.6 mg/dL * secondary to her diabetes, hypertension, vascular disease, obstructive sleep apnea/pulmonary hypertension, and chronic CHF with the necessity for diuretic therapy along with age-related change (3) Acute on chronic respiratory failure with hypoxia and hypercapnia: Code(s): J96.21 - Acute and chronic respiratory failure with hypoxia; J96.22 - Acute and chronic respiratory failure with hypercapnia Status: Acute Assessment and Plan: * felt to be due to a combination of volume overload/CHF and pneumonia * Cardiology and Pulmonary following * see #4 and #5 (4) Pneumonia: Code(s): J18.9 - Pneumonia, unspecified organism Status: Acute Assessment and Plan: * as suggested by admission imaging * on antibiotics * BiPAP support as needed * continue supplemental oxygen * s/p thoracentesis (on 10/09) * Pulmonary following (5) Acute exacerbation of CHF (congestive heart failure): Qualifiers: Heart failure type: unspecified Qualified Code(s): I50.9 - Heart failure, unspecified Code(s): I50.9 - Heart failure, unspecified Status: Acute Assessment and Plan: * as evidenced by findings on admission * last Echo noted * back on diuretic therapy (loop diuretics and acetazolamide) * follow I/Os, daily weights, and respiratory status * Cardiology following (6) UTI (urinary tract infection): Code(s): N39.0 - Urinary tract infection, site not specified Status: Acute Assessment and Plan: * as suggested by admission UA * urine culture with Proteus mirabilis * completed treatment (7) Hypertension: Code(s): I10 - Essential (primary) hypertension Status: Chronic Assessment and Plan: * running a bit on the soft side * BP medications with parameters * follow trend of hemodynamics (8) Type 2 diabetes mellitus with diabetic nephropathy, with long-term current use of insulin: Code(s): E11.21 - Type 2 diabetes mellitus with diabetic nephropathy; Z79.4 - joint terminal attack controller (current) use of insulin Status: Chronic Assessment and Plan: * follow accu-cheks * glycemic control per hospitalists Will continue to follow. Subjective Date/time seen: 10/18/23 11:08 Interval history: Follow-up for acute kidney injruy/acute renal failure on chronic kidney disease. Renal function remains relatively stable inspite of ongoing diuresis; dariusz athing/respiratory status also seems to be slowly improving as well; fluctuating urine output noted but clinically seems better in general. Exam Narrative: General: large and somewhat ill appearing
[2023-10-18 11:20] LABS: Glucose Point of Care 134 mg/dl (65-105)
[2023-10-18 15:41] LABS: INR 1.3; Prothrombin Time 16.8 Seconds (11.1-14.7)
[2023-10-18 15:42] LABS: Partial Thromboplastin Time 32.7 Seconds (22.3-36.8)
[2023-10-18] MEDS: BUMETANIDE INJ 1 MG/4 ML VIAL 2 MG IV PUSH (16:32)
[2023-10-18 16:59] LABS: Glucose Point of Care 116 mg/dl (65-105)
[2023-10-18] MEDS: RIVAROXABAN 20 MG TABLET PO (17:39)
[2023-10-18] MEDS: ATORVASTATIN 10 MG TABLET PO (20:16)
[2023-10-18] MEDS: FAMOTIDINE 20 MG/2 ML VIAL IV PUSH (20:17)
[2023-10-18] MEDS: FERROUS SULFATE 325 MG TABLET DR PO (20:17)
[2023-10-18] MEDS: MELATONIN 5 MG TABLET PO (20:21)
[2023-10-18] MEDS: hydrOXYzine HCL 25 MG TABLET PO (20:21)
[2023-10-18] MEDS: LATANOPROST 0.005% OP SOLN 2.5 ML BTL 1 DROP EACH EYE (20:22)
[2023-10-18 20:29] LABS: Glucose Point of Care 101 mg/dl (65-105)
[2023-10-18] MEDS: INSULIN GLARGINE (*BKC) 100 UNITS/ML 15 UNITS SUB-Q (20:32)
[2023-10-19] VITALS (12 sets, daily range): BP systolic 101–108; BP diastolic 51–70; PULSE 65–100; RESP 14–22; TEMP 36.1–37.2; O2SAT 92–99; BMI 10.0
[2023-10-19 05:14] LABS: Alveolar/Arterial O2 Gradient 99.5 mmHg; Base Excess ABG 7.5 mEq/l (+/-2.0); Device NON-INVASIVE VENT; Fractional Inspired Oxygen 32 %; HCO3 ABG 33.2 mEq/l (22.0-26.0); Modified Allen's Test Pass; Oxygen Content ABG 11.2 %vol (16.0-22.0); Oxygen Saturation ABG 92.9 % (95.0-100.0); PCO2 ABG 53.5 mmHg (35.0-45.0); PO2 ABG 66.1 mmHg (80.0-100.0); PO2 FiO2 Ratio Arterial Blood 2.07 %; Site Drawn RIGHT RADIAL; Total Hemoglobin 8.7 g/dL (12.0-18.0)
[2023-10-19 05:15] LABS: Non-Invasive Expiratory Pressure 10 CMH2O; Non-Invasive Inspiratory Pressure 22 CMH2O; Non-Invasive Vent Rate 20 /MIN
[2023-10-19 07:49] LABS: Glucose Point of Care 73 mg/dl (65-105)
[2023-10-19] MEDS: ACETAMINOPHEN 325 MG TABLET 650 MG PO ×2 (08:07→14:53)
[2023-10-19] MEDS: PANTOPRAZOLE 40 MG TABLET PO (08:07)
[2023-10-19] MEDS: MULTIVITAMINS THERAPEUTIC TAB (*BKC) 1 TABLET PO (08:08)
[2023-10-19] MEDS: SACCHAROMYCES BOULARDII 250 MG CAPSULE PO ×2 (08:08→17:03)
[2023-10-19] MEDS: ASCORBIC ACID 500 MG TABLET 1000 MG PO (08:08)
[2023-10-19] MEDS: CYANOCOBALAMIN 1,000 MCG TABLET 1000 MCG PO (08:08)
[2023-10-19] MEDS: METOPROLOL TARTRATE 50 MG TAB PO ×2 (08:08→20:35)
[2023-10-19] MEDS: hydrOXYzine HCL 25 MG TABLET PO ×2 (08:08→14:53)
[2023-10-19] MEDS: SACUBITRIL/VALSARTAN 24-26 MG TABLET 1 TAB PO ×2 (08:08→20:35)
[2023-10-19] MEDS: CALCIUM CARBONATE (OSCAL) 500 MG TABLET PO (08:08)
[2023-10-19] MEDS: busPIRone HCL 2.5 MG TABLET 7.5 MG PO ×2 (08:09→17:03)
[2023-10-19] MEDS: ASPIRIN 81 MG ENTERIC TABLET PO (08:09)
[2023-10-19] MEDS: TAMSULOSIN HCL 0.4 MG CAPSULE PO (08:09)
[2023-10-19] MEDS: DULoxetine HCL 30 MG CAPSULE.DR PO (08:09)
[2023-10-19] MEDS: CHOLECALCIFEROL 1,000 UNITS TABLET 1000 UNITS PO (08:09)
[2023-10-19] MEDS: metOLazone 5 MG TABLET PO (08:09)
[2023-10-19] MEDS: acetaZOLAMIDE TAB 250 MG TABLET PO (08:09)
[2023-10-19] MEDS: TRIAMCINOLONE ACET 0.1% OINT 15 GM TUBE 1 APPLIC TOPICAL ×2 (08:10→17:03)
[2023-10-19] MEDS: FAMOTIDINE 20 MG/2 ML VIAL IV PUSH (08:16)
[2023-10-19 09:08] LABS: Glucose Point of Care 127 mg/dl (65-105)
--- NOTE | 2023-10-19 09:45 | P.PNPL_ITS ---
Progress Note: A&P Assessment and Plan (1) Obesity hypoventilation syndrome: Code(s): E66.2 - Morbid (severe) obesity with alveolar hypoventilation Status: Acute Assessment and Plan: A 73-year-old female patient with morbid obesity (BMI 67.1) and obstructive sleep apnea, who has been non-compliant with her BiPAP support, was admitted with symptoms of shortness of breath, bilateral pleural effusion, mild pulmonary edema, and acute on chronic hypercapnic respiratory failure. The patient appears to be responding to the current treatment plan, which includes ventilatory support with BiPAP, supplemental oxygen, and diuretics. She has also undergone a thoracentesis, although no fluid analysis is currently available. The patient's current hospitalization was triggered by congestive heart failure along with bilateral pleural effusions. She has a known history of sleep apnea and secondary pulmonary hypertension. Her untreated sleep apnea is also a contributing factor to her congestive heart failure. Patient did not have pleural fluid analysis done. On pleural fluid culture the preliminary anaerobic bilateral report indicated rare Gram-positive bacilli. Anaerobic bottle negative so far. Vancomycin has been discontinued as patient has no evidence of ongoing infection. Creatinine still trending higher. Overall respiratory status stable over the last 24 hours. Chest x-ray done yesterday showed bilateral pleural effusions unchanged from prior studies. There was cardiomegaly which could be due to the increasing pericardial effusion as per the radiology report. The patient's creatinine is still rising. Diuretic restarted. Abdominal ultrasound showed ascites. Plan: Continue with current regimen of BiPAP support, supplemental oxygen, out of bed to chair. Will continue to monitor the respiratory status. Case was discussed with the hospitalist. 10/16/23? 10:25 Interval history: Patient reports no new respiratory symptoms.? Using BiPAP support every night.? Creatinine trending higher. ABG on 4 L 7.//33. patient was placed on BiPAP 16/10 and 35% FiO2 and 2 hours later blood gas was 7.33/54/67. 10/17/23: overall patient denies shortness of breath while sitting in the chair. She has minimal cough. When I enter the room she was on 5 L nasal cannula saturation 98%. I decreased her to 3 L nasal cannula her saturations were 95%. She states she is tolerating the hospital BiPAP with a rate of 14 and presure 16/10 with 35% FiO2. Her creatinine is 2.80. Her BUN is 63. Her BNP has increased from 4810 on 10/08 to 8320 today. Her weight today is 166.5 kg with an admission weight of 158 kg. Ins and outs demonstrate a cumulative positive 6.6 L. Patient does Lasix 40 p.o. q.day and acetozolamide 250 mg p.o. q.a.m. Patient has obesity hypoventilation syndrome (BMI 67.1) with blood gas during the day of 7. on 4 L nasal cannula. She would benefit from noninvasive ventilation to prevent further deterioration and subsequent hospitalizations. TSH 2.77 and free T4 1.04 on 10/17/2023. She has diastolic dysfunction and diuresis has been initiated but is limited by chronic renal insufficiency. She has pulmonary hypertension dating back to 02/27/2018 with a PASP of 50. Plan: Patient would benefit from noninvasive ventilation to prevent further deterioration and subsequent hospitalizations. Current plans are for her to return to [facility] as residential resident versus SNF. Patient's blood gas on BiPAP 14/03 and 35% FiO2 was 7.33/. I will increase her IPAP pressure to 20 and increase her FiO2 to 36% and perform an overnight oximetry an ABG prior to removal. Patient has no history of asthma or COPD. She is a never smok
[2023-10-19 11:38] LABS: Glucose Point of Care 140 mg/dl (65-105)
--- NOTE | 2023-10-19 12:56 | PM.PNNEP ---
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 in the near future follow trend of repeat labs and UOP (2) Stage 3b chronic kidney disease: Code(s): N18.32 - Chronic kidney disease, stage 3b Status: Chronic Assessment and Plan: baseline creatinine usually runs ~ 1.1 - 1.6 mg/dL secondary to her diabetes, hypertension, vascular disease, obstructive sleep apnea/pulmonary hypertension, and chronic CHF with the necessity for diuretic therapy along with age-related change (3) Acute on chronic respiratory failure with hypoxia and hypercapnia: Code(s): J96.21 - Acute and chronic respiratory failure with hypoxia; J96.22 - Acute and chronic respiratory failure with hypercapnia Status: Acute Assessment and Plan: felt to be due to a combination of volume overload/CHF and pneumonia complicated by her ANNIE/OHS Cardiology and Pulmonary following see #4 and #5 (4) Pneumonia: Code(s): J18.9 - Pneumonia, unspecified organism Status: Acute Assessment and Plan: as suggested by admission imaging on antibiotics BiPAP support as needed continue supplemental oxygen s/p thoracentesis (on 10/09) Pulmonary following (5) Acute exacerbation of CHF (congestive heart failure): Qualifiers: Heart failure type: unspecified Qualified Code(s): I50.9 - Heart failure, unspecified Code(s): I50.9 - Heart failure, unspecified Status: Acute Assessment and Plan: as evidenced by findings on admission last Echo noted back on diuretic therapy (loop diuretics and acetazolamide) follow I/Os, daily weights, and respiratory status Cardiology following (6) UTI (urinary tract infection): Code(s): N39.0 - Urinary tract infection, site not specified Status: Acute Assessment and Plan: as suggested by admission UA urine culture with Proteus mirabilis completed treatment (7) Hypertension: Code(s): I10 - Essential (primary) hypertension Status: Chronic Assessment and Plan: running a bit on the soft side BP medications with parameters follow trend of hemodynamics (8) Type 2 diabetes mellitus with diabetic nephropathy, with long-term current use of insulin: Code(s): E11.21 - Type 2 diabetes mellitus with diabetic nephropathy; Z79.4 - retirement (current) use of insulin Status: Chronic Assessment and Plan: follow accu-cheks glycemic control per hospitalists Will continue to follow. Subjective Date/time seen: 10/19/23 12:56 Interval history: Follow-up for acute kidney injruy/acute renal failure on chronic kidney disease. Breathing/respiratory status as well as renal function/creatinine appear relatively stable at this time; she denies any shortness of breath at the time of my visit; she feels LE edema is stable if not improving as well; no apparent distress noted. Exam Narrative: General: large and somewhat ill appearing female in NAD Heart: normal S1 and S2; no rub Lungs: coarse throughout with decreased breath sounds at bases Abdomen: soft, nontender, nondistended, positive bowel sounds Extremities: no cyanosis or clubbing; 1+ edema Skin: warm and dry Objective Data Vital Signs Vital Signs: Vital Signs Temp Pulse Resp BP Pulse Ox O2 Del Method FiO2 10/19/23 12:00 98.9 F 65 18 108/56 L 99 10/19/23 08:00 72 14 9
--- NOTE | 2023-10-19 12:56 | P.PNNP_ITS ---
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22 - Acute and chronic respiratory failure with hypercapnia Status: Acute Assessment and Plan: * felt to be due to a combination of volume overload/CHF and pneumonia complicated by her ANNIE/OHS * Cardiology and Pulmonary following * see #4 and #5 (4) Pneumonia: Code(s): J18.9 - Pneumonia, unspecified organism Status: Acute Assessment and Plan: * as suggested by admission imaging * on antibiotics * BiPAP support as needed * continue supplemental oxygen * s/p thoracentesis (on 10/09) * Pulmonary following (5) Acute exacerbation of CHF (congestive heart failure): Qualifiers: Heart failure type: unspecified Qualified Code(s): I50.9 - Heart failure, unspecified Code(s): I50.9 - Heart failure, unspecified Status: Acute Assessment and Plan: * as evidenced by findings on admission * last Echo noted * back on diuretic therapy (loop diuretics and acetazolamide) * follow I/Os, daily weights, and respiratory status * Cardiology following (6) UTI (urinary tract infection): Code(s): N39.0 - Urinary tract infection, site not specified Status: Acute Assessment and Plan: * as suggested by admission UA * urine culture with Proteus mirabilis * completed treatment (7) Hypertension: Code(s): I10 - Essential (primary) hypertension Status: Chronic Assessment and Plan: * running a bit on the soft side * BP medications with parameters * follow trend of hemodynamics (8) Type 2 diabetes mellitus with diabetic nephropathy, with long-term current use of insulin: Code(s): E11.21 - Type 2 diabetes mellitus with diabetic nephropathy; Z79.4 - prison (current) use of insulin Status: Chronic Assessment and Plan: * follow accu-cheks * glycemic control per hospitalists Will continue to follow. Subjective Date/time seen: 10/19/23 12:56 Interval history: Follow-up for acute kidney injruy/acute renal failure on chronic kidney disease. Breathing/respiratory status as well as renal function/creatinine appear relatively stable at this time; she denies any shortness of breath at the time of my visit; she feels LE edema is stable if not improving as well; no apparent distress noted. Exam Narr
[2023-10-19] MEDS: SODIUM ZIRCONIUM CYCLOSILICATE 5 GM POWD.PACK PO (14:46)
[2023-10-19 15:20] LABS: Basophils Percent Auto 0.7 % (0.2-1.2); Eosinophils Absolute Auto 0.3 K/mm3 (0-0.3); Eosinophils Percent Auto 4.5 % (0-4.4); Hematocrit 29.9 % (37.0-47.0); Hemoglobin 8.7 g/dL (12.0-15.0); Immature Granulocyte Absolute 0.04 K/mm3 (0.00-0.031); Immature Granulocyte Percent A 0.7 % (0-0.5); Mean Corpuscular HGB Conc 29.1 g/dl (32-36); Mean Corpuscular Hemoglobin 31.5 pg (26-34); Mean Corpuscular Volume 108.3 fl (80-100); Mean Platelet Volume 11.6 fl (7.4-10.4); Monocytes Absolute Auto 0.5 K/mm3 (0.1-0.6); Monocytes Percent Auto 8.4 % (2.6-8.5); Neutrophils Absolute Auto 4.5 K/mm3 (1.3-6.7); Neutrophils Percent Auto 78.7 % (45.5-73.1); Platelet Count Result 157 k/mm3 (150-375); Red Blood Count 2.76 M/mm3 (4.2-5.4); Red Cell Distribution Width 15.2 % (11.5-14.5); White Blood Count 5.7 K/mm3 (4.5-10.0)
[2023-10-19 15:40] LABS: Alanine Aminotransferase 12 U/L (6-35); Alkaline Phosphatase 61 U/L (38-126); Anion Gap 4 mmol/L (4-12); Aspartate Amino Transferase 24 U/L (14-36); Bilirubin,Total 0.4 mg/dL (0.2-1.3); Blood Urea Nitrogen 66 mg/dL (7-17); Calcium 8.7 mg/dL (8.4-10.2); Carbon Dioxide 34 mmol/L (22-30); Chloride 97 mmol/L (98-107); Estimated CRCL calculation 24 ml/min; Estimated Glomerular Filt Rate 16; Glucose 140 mg/dL (65-110); Magnesium 2.1 mg/dL (1.6-2.3); Potassium 4.1 mmol/L (3.4-5.0); Sodium 135 mmol/L (137-145)
--- NOTE | 2023-10-19 16:29 | PM.IMPN ---
Progress Note: A&P Assessment and Plan (1) Acute on chronic respiratory failure with hypoxia and hypercapnia: Code(s): J96.21 - Acute and chronic respiratory failure with hypoxia; J96.22 - Acute and chronic respiratory failure with hypercapnia Status: Acute (2) Atrial fibrillation with rapid ventricular response: Code(s): I48.91 - Unspecified atrial fibrillation Status: Acute (3) Acute exacerbation of CHF (congestive heart failure): Qualifiers: Heart failure type: unspecified Qualified Code(s): I50.9 - Heart failure, unspecified Code(s): I50.9 - Heart failure, unspecified Status: Acute Plan (1) Acute on chronic respiratory failure with hypoxia and hypercapnia: 10/07/23: - CXR: 1. Airspace opacities in the mid and lower lung zones with worsening on the right, consistent with atelectasis versus pneumonia. 2.. Moderate-sized right and small left pleural effusions with worsening on the right. 3. Enlargement of the cardiac silhouette, likely a combination of cardiomegaly and pericardial effusion. - CT chest: - ABG, initial: pH 7.324, pCO2 59.4, pO2 60.3, HCO3 30.2, O2 sat 88.6% on 5L NC. - ABG, repeat: pH 7.382, pCO2 51.6, pO2 70, HCO3 30, O2 sat 93.6% on BiPAP. - placed on BiPAP in ED, continuing - continue home inhalers: Albuterol and Trelegy - plan for diagnostic thoracentesis of the right moderate pleural effusion, holding Xarelto for 24-48 hours prior to procedure.? SCDs started in lieu of anticoagulation. - DDx: CHF exacerbation, worsening pleural effusion, PNA. suspect CHF exacerbation/worsening pleural effusion in combination with recent viral illness. 10/08/23: Continue with current treatment plan 10/09/23: Suspect multifactorial due to exacerbation of CHF and possible pneumonia -CT chest shows mild pulmonary edema and moderate right and small left pleural effusions with moderate size pericardial effusion -repeat chest x-ray done today, right side looks a little worse -will continue Lasix 40 mg IV b.i.d. (she takes 40 mg at home orally). will add daily potassium -patient is incontinent, unable to estimate intake and output -will consult Cardiology due to acute exacerbation of CHF and pericardial effusion -continue home oxygen to keep oxygen greater than 90 -utilize BiPAP while sleeping -patient states she has a recent history of viral illness (RSV) although are viral panel was negative.? Due to her history, possible secondary bacterial pneumonia could be playing a part.? Will stop meropenem (was on for UTI) and start ceftriaxone and azithromycin -thoracentesis ordered, check procalcitonin 10/10/23: Continue Lasix 40 mg IV b.i.d. Cardiology consulted Continue Rocephin and azithromycin IV today and then switch over to cefdinir and azithromycin oral tomorrow Thoracentesis today Patient was refusing echocardiogram today 10/11: Holding Lasix with creatinine bump to 2.4 Cardiology following, recs appreciated On cefdinir and azithromycin for possible pneumonia Thoracentesis yesterday with 1 L removed. Strict I&O ordered Weight 158.5 kg up from 155 kilos yesterday 10/12: 160.4 kilos Lasix was restarted today 10/13: 159.4 kg holding lasix, entresto small 500 cc bolus ordered nephrology consulted, recs appreciated 10/14: 159.8 kg restart lasix and entresto pulmonology had recommended possible ECHO to assess pericardial effusion--which was already ordered this admission and patient refused. XR seems unchanged from previous. 10/15: 163.8 kg Lasix 40 mg PO daily---will see how her breathing is today. She may need increased lasix dose. Continues on BiPAP at night tolerating settings 16/10 with a rate of 14 Nasal cannula 3 L. Titrate to maintain SpO2 greater than 90 % 10/16: 166.5 kg Appears she had some increase drowsiness and was sating 90% on 4 L NC yesterday evening. ABG was drawn and showed compensated respiratory acidosis Placed on BiPAP b
[2023-10-19 16:33] LABS: Glucose Point of Care 152 mg/dl (65-105)
[2023-10-19] MEDS: RIVAROXABAN 20 MG TABLET PO (17:03)
[2023-10-19 19:13] LABS: Hypochromasia 1+; Macrocytosis 1+ (NORMAL); Platelet Estimate Adequate (Adequate); Schistocytes None Seen
[2023-10-19 19:14] LABS: Anisocytosis 2+
[2023-10-19 20:18] LABS: Glucose Point of Care 149 mg/dl (65-105)
[2023-10-19] MEDS: ATORVASTATIN 10 MG TABLET PO (20:35)
[2023-10-19] MEDS: FERROUS SULFATE 325 MG TABLET DR PO (20:35)
[2023-10-19] MEDS: FAMOTIDINE 20 MG TABLET PO (20:36)
[2023-10-19] MEDS: LATANOPROST 0.005% OP SOLN 2.5 ML BTL 1 DROP EACH EYE (20:36)
[2023-10-19] MEDS: INSULIN GLARGINE (*BKC) 100 UNITS/ML 15 UNITS SUB-Q (20:40)
[2023-10-20] VITALS (15 sets, daily range): BP systolic 84–125; BP diastolic 48–77; PULSE 78–103; RESP 16–30; TEMP 35.9–36.4; O2SAT 77–96
[2023-10-20 06:19] LABS: Basophils Percent Auto 0.8 % (0.2-1.2); Eosinophils Absolute Auto 0.4 K/mm3 (0-0.3); Eosinophils Percent Auto 8.3 % (0-4.4); Hematocrit 29.2 % (37.0-47.0); Hemoglobin 8.6 g/dL (12.0-15.0); Immature Granulocyte Absolute 0.02 K/mm3 (0.00-0.031); Immature Granulocyte Percent A 0.4 % (0-0.5); Lymphocytes Absolute Auto 0.55 K/mm3 (0.9-3.2); Lymphocytes Percent Auto 11.1 % (18.3-44.2); Mean Corpuscular HGB Conc 29.5 g/dl (32-36); Mean Corpuscular Hemoglobin 31.4 pg (26-34); Mean Corpuscular Volume 106.6 fl (80-100); Mean Platelet Volume 11.8 fl (7.4-10.4); Monocytes Absolute Auto 0.6 K/mm3 (0.1-0.6); Monocytes Percent Auto 11.1 % (2.6-8.5); Neutrophils Absolute Auto 3.4 K/mm3 (1.3-6.7); Neutrophils Percent Auto 68.3 % (45.5-73.1); Platelet Count Result 145 k/mm3 (150-375); Red Blood Count 2.74 M/mm3 (4.2-5.4); Red Cell Distribution Width 15.1 % (11.5-14.5); White Blood Count 4.9 K/mm3 (4.5-10.0)
[2023-10-20 06:32] LABS: Alanine Aminotransferase 11 U/L (6-35); Alkaline Phosphatase 62 U/L (38-126); Anion Gap 3 mmol/L (4-12); Aspartate Amino Transferase 24 U/L (14-36); Bilirubin,Total 0.4 mg/dL (0.2-1.3); Blood Urea Nitrogen 66 mg/dL (7-17); Calcium 8.8 mg/dL (8.4-10.2); Carbon Dioxide 36 mmol/L (22-30); Chloride 99 mmol/L (98-107); Estimated CRCL calculation 23 ml/min; Estimated Glomerular Filt Rate 16; Glucose 106 mg/dL (65-110); Magnesium 2.2 mg/dL (1.6-2.3); Sodium 138 mmol/L (137-145)
[2023-10-20 07:36] LABS: Platelet Estimate Slightly Decreased (Adequate); Schistocytes None Seen
[2023-10-20 07:37] LABS: Anisocytosis 1+; Hypochromasia 1+; Macrocytosis 1+ (NORMAL)
[2023-10-20 07:43] LABS: Folic Acid 18.3 ng/mL (2.76->20); Vitamin B12 > 1000.0 pg/mL (239-931)
[2023-10-20 07:48] LABS: Glucose Point of Care 112 mg/dl (65-105)
[2023-10-20] MEDS: hydrOXYzine HCL 25 MG TABLET PO ×2 (07:52→15:59)
[2023-10-20] MEDS: CYANOCOBALAMIN 1,000 MCG TABLET 1000 MCG PO (07:52)
[2023-10-20] MEDS: busPIRone HCL 2.5 MG TABLET 7.5 MG PO ×2 (07:53→15:58)
[2023-10-20] MEDS: ASCORBIC ACID 500 MG TABLET 1000 MG PO (07:53)
[2023-10-20] MEDS: SACUBITRIL/VALSARTAN 24-26 MG TABLET 1 TAB PO ×2 (07:54→20:04)
[2023-10-20] MEDS: metOLazone 5 MG TABLET PO (07:54)
[2023-10-20] MEDS: MULTIVITAMINS THERAPEUTIC TAB (*BKC) 1 TABLET PO (07:54)
[2023-10-20] MEDS: ASPIRIN 81 MG ENTERIC TABLET PO (07:55)
[2023-10-20] MEDS: acetaZOLAMIDE TAB 250 MG TABLET PO (07:55)
[2023-10-20] MEDS: TAMSULOSIN HCL 0.4 MG CAPSULE PO (07:55)
[2023-10-20] MEDS: DULoxetine HCL 30 MG CAPSULE.DR PO (07:55)
[2023-10-20] MEDS: CHOLECALCIFEROL 1,000 UNITS TABLET 1000 UNITS PO (07:55)
[2023-10-20] MEDS: SACCHAROMYCES BOULARDII 250 MG CAPSULE PO ×2 (07:55→15:58)
[2023-10-20] MEDS: CALCIUM CARBONATE (OSCAL) 500 MG TABLET PO (07:56)
[2023-10-20] MEDS: METOPROLOL TARTRATE 50 MG TAB PO ×2 (07:56→20:04)
[2023-10-20] MEDS: FAMOTIDINE 20 MG TABLET PO ×2 (07:56→20:04)
[2023-10-20] MEDS: TRIAMCINOLONE ACET 0.1% OINT 15 GM TUBE 1 APPLIC TOPICAL ×2 (07:57→15:58)
[2023-10-20] MEDS: PANTOPRAZOLE 40 MG TABLET PO (09:00)
[2023-10-20] MEDS: SODIUM ZIRCONIUM CYCLOSILICATE 5 GM POWD.PACK PO (10:57)
[2023-10-20 11:13] LABS: Glucose Point of Care 176 mg/dl (65-105)
[2023-10-20] MEDS: TOLNAFTATE 1% POWDER 45 GM BTL 1 APPLIC TOPICAL ×2 (13:00→20:05)
--- NOTE | 2023-10-20 13:30 | P.PNNP_ITS ---
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 MANAGEMENT SPECIALIST/dialysis in the near future * follow trend of repeat labs and UOP (2) Stage 3b chronic kidney disease: Code(s): N18.32 - Chronic kidney disease, stage 3b Status: Chronic Assessment and Plan: * baseline creatinine usually runs ~ 1.1 - 1.6 mg/dL * secondary to her diabetes, hypertension, vascular disease, obstructive sleep apnea/pulmonary hypertension, and chronic CHF with the necessity for diuretic therapy along with age-related change (3) Acute on chronic respiratory failure with hypoxia and hypercapnia: Code(s): J96.21 - Acute and chronic respiratory failure with hypoxia; J96.22 - Acute and chronic respiratory failure with hypercapnia Status: Acute Assessment and Plan: * felt to be due to a combination of volume overload/CHF and pneumonia complicated by her ANNIE/OHS * Cardiology and Pulmonary following * see #4 and #5 (4) Pneumonia: Code(s): J18.9 - Pneumonia, unspecified organism Status: Acute Assessment and Plan: * as suggested by admission imaging * on antibiotics * BiPAP support as needed * continue supplemental oxygen * s/p thoracentesis (on 10/09) * Pulmonary following (5) Acute exacerbation of CHF (congestive heart failure): Qualifiers: Heart failure type: unspecified Qualified Code(s): I50.9 - Heart failure, unspecified Code(s): I50.9 - Heart failure, unspecified Status: Acute Assessment and Plan: * as evidenced by findings on admission * last Echo noted * back on diuretic therapy (loop diuretics and acetazolamide) * follow I/Os, daily weights, and respiratory status * Cardiology following (6) UTI (urinary tract infection): Code(s): N39.0 - Urinary tract infection, site not specified Status: Acute Assessment and Plan: * as suggested by admission UA * urine culture with Proteus mirabilis * completed treatment (7) Hypertension: Code(s): I10 - Essential (primary) hypertension Status: Chronic Assessment and Plan: * running a bit on the soft side * BP medications with parameters * follow trend of hemodynamics (8) Type 2 diabetes mellitus with diabetic nephropathy, with long-term current use of insulin: Code(s): E11.21 - Type 2 diabetes mellitus with diabetic nephropathy; Z79.4 - snf (current) use of insulin Status: Chronic Assessment and Plan: * follow accu-cheks * glycemic control per hospitalists Will continue to follow. Subjective Date/time seen: 10/20/23 13:30 Interval history: Follow-up for acute kidney injruy/acute renal failure on chronic kidney disease. Overall, continues to do reasonably well; renal function remains stable; breathing/respiratory status contineus to improve if not remain stable as well; tolerating diuretic therapy; only real complaint is that it is difficult to get comfortable in bed. Exam
--- NOTE | 2023-10-20 13:30 | PM.PNNEP ---
Progress Note: A&P Assessment and Plan (1) Acute kidney injury: Code(s): N17.9 - Acute kidney failure, unspecified Status: Acute Assessment and Plan: suspect secondary to need for diuretic therapy to attain relative euvolemia with contributions from previous UTI and relative hypotension evaluation to date noted: urine electrolytes suggest prerenal azotemia renal u/s consistent with CKD urine eosinophils negative CPK okay this maybe a situation where we have to accept a higher creatinine to maintain her volume status she remains at risk for BEATER OUT/dialysis in the near future follow trend of repeat labs and UOP (2) Stage 3b chronic kidney disease: Code(s): N18.32 - Chronic kidney disease, stage 3b Status: Chronic Assessment and Plan: baseline creatinine usually runs ~ 1.1 - 1.6 mg/dL secondary to her diabetes, hypertension, vascular disease, obstructive sleep apnea/pulmonary hypertension, and chronic CHF with the necessity for diuretic therapy along with age-related change (3) Acute on chronic respiratory failure with hypoxia and hypercapnia: Code(s): J96.21 - Acute and chronic respiratory failure with hypoxia; J96.22 - Acute and chronic respiratory failure with hypercapnia Status: Acute Assessment and Plan: felt to be due to a combination of volume overload/CHF and pneumonia complicated by her ANNIE/OHS Cardiology and Pulmonary following see #4 and #5 (4) Pneumonia: Code(s): J18.9 - Pneumonia, unspecified organism Status: Acute Assessment and Plan: as suggested by admission imaging on antibiotics BiPAP support as needed continue supplemental oxygen s/p thoracentesis (on 10/09) Pulmonary following (5) Acute exacerbation of CHF (congestive heart failure): Qualifiers: Heart failure type: unspecified Qualified Code(s): I50.9 - Heart failure, unspecified Code(s): I50.9 - Heart failure, unspecified Status: Acute Assessment and Plan: as evidenced by findings on admission last Echo noted back on diuretic therapy (loop diuretics and acetazolamide) follow I/Os, daily weights, and respiratory status Cardiology following (6) UTI (urinary tract infection): Code(s): N39.0 - Urinary tract infection, site not specified Status: Acute Assessment and Plan: as suggested by admission UA urine culture with Proteus mirabilis completed treatment (7) Hypertension: Code(s): I10 - Essential (primary) hypertension Status: Chronic Assessment and Plan: running a bit on the soft side BP medications with parameters follow trend of hemodynamics (8) Type 2 diabetes mellitus with diabetic nephropathy, with long-term current use of insulin: Code(s): E11.21 - Type 2 diabetes mellitus with diabetic nephropathy; Z79.4 - half-way (current) use of insulin Status: Chronic Assessment and Plan: follow accu-cheks glycemic control per hospitalists Will continue to follow. Subjective Date/time seen: 10/20/23 13:30 Interval history: Follow-up for acute kidney injruy/acute renal failure on chronic kidney disease. Overall, continues to do reasonably well; renal function remains stable; breathing/respiratory status contineus to improve if not remain stable as well; tolerating diuretic therapy; only real complaint is that it is difficult to get comfortable in bed. Exam Narrative: General: large and somewhat ill appearing female in NAD Heart: normal S1 and S2; no rub Lungs: coarse throughout with decreased breath sounds at bases Abdomen: soft, nontender, nondistended, positive bowel sounds Extremities: no cyanosis or clubbing; 1+ edema Skin: warm and intact Objective Data Vital Signs Vital Signs: Vital Signs Temp Pulse Resp BP Pulse Ox O2 Del Method O2 Flow Rate 10/20/23 12:00 80 10/20/23 08:00 95 09/28
--- NOTE | 2023-10-20 14:11 | P.PNIM_ITS ---
Progress Note: A&P Assessment and Plan (1) Acute on chronic respiratory failure with hypoxia and hypercapnia: Code(s): J96.21 - Acute and chronic respiratory failure with hypoxia; J96.22 - Acute and chronic respiratory failure with hypercapnia Status: Acute (2) Atrial fibrillation with rapid ventricular response: Code(s): I48.91 - Unspecified atrial fibrillation Status: Acute (3) Acute exacerbation of CHF (congestive heart failure): Qualifiers: Heart failure type: unspecified Qualified Code(s): I50.9 - Heart failure, unspecified Code(s): I50.9 - Heart failure, unspecified Status: Acute Plan (1) Acute on chronic respiratory failure with hypoxia and hypercapnia: 10/07/23: - CXR: 1. Airspace opacities in the mid and lower lung zones with worsening on the right, consistent with atelectasis versus pneumonia. 2.. Moderate-sized right and small left pleural effusions with worsening on the right. 3. Enlargement of the cardiac silhouette, likely a combination of cardiomegaly and pericardial effusion. - CT chest: - ABG, initial: pH 7.324, pCO2 59.4, pO2 60.3, HCO3 30.2, O2 sat 88.6% on 5L NC. - ABG, repeat: pH 7.382, pCO2 51.6, pO2 70, HCO3 30, O2 sat 93.6% on BiPAP. - placed on BiPAP in ED, continuing - continue home inhalers: Albuterol and Trelegy - plan for diagnostic thoracentesis of the right moderate pleural effusion, holding Xarelto for 24-48 hours prior to procedure.? SCDs started in lieu of anticoagulation. - DDx: CHF exacerbation, worsening pleural effusion, PNA. suspect CHF exacerbation/worsening pleural effusion in combination with recent viral illness. 10/08/23: * Continue with current treatment plan 10/09/23: Suspect multifactorial due to exacerbation of CHF and possible pneumonia -CT chest shows mild pulmonary edema and moderate right and small left pleural effusions with moderate size pericardial effusion -repeat chest x-ray done today, right side looks a little worse -will continue Lasix 40 mg IV b.i.d. (she takes 40 mg at home orally). will add daily potassium -patient is incontinent, unable to estimate intake and output -will consult Cardiology due to acute exacerbation of CHF and pericardial effusion -continue home oxygen to keep oxygen greater than 90 -utilize BiPAP while sleeping -patient states she has a recent history of viral illness (RSV) although are viral panel was negative.? Due to her history, possible secondary bacterial pneumonia could be playing a part.? Will stop meropenem (was on for UTI) and start ceftriaxone and azithromycin -thoracentesis ordered, check procalcitonin 10/10/23: * Continue Lasix 40 mg IV b.i.d. * Cardiology consulted * Continue Rocephin and azithromycin IV today and then switch over to cefdinir and azithromycin oral tomorrow * Thoracentesis today * Patient was refusing echocardiogram today 10/11: * Holding Lasix with creatinine bump to 2.4 * Cardiology following, recs appreciated * On cefdinir and azithromycin for possible pneumonia * Thoracentesis yesterday with 1 L removed. * Strict I&O ordered * Weight 158.5 kg up from 155 kilos yesterday 10/12: * 160.4 kilos * Lasix was restarted today 10/13: * 159.4 kg * holding lasix, entresto * small 500 cc bolus ordered * nephrology consulted, recs appreciated 10/14: * 159.8 kg * restart lasix and entresto * pulmonology had recommended possible ECHO to assess pericardial effusion--which was already ordered this admission and patient refused. XR seems unchanged from previous. 10/15: * 163.8 kg * La
[2023-10-20] MEDS: RIVAROXABAN 20 MG TABLET PO (15:58)
[2023-10-20] MEDS: ACETAMINOPHEN 325 MG TABLET 650 MG PO ×2 (16:00→20:09)
[2023-10-20] MEDS: BUMETANIDE INJ 1 MG/4 ML VIAL IV PUSH (16:06)
[2023-10-20 16:39] LABS: Glucose Point of Care 191 mg/dl (65-105)
[2023-10-20 19:57] LABS: Glucose Point of Care 202 mg/dl (65-105)
[2023-10-20] MEDS: ATORVASTATIN 10 MG TABLET PO (20:04)
[2023-10-20] MEDS: FERROUS SULFATE 325 MG TABLET DR PO (20:04)
[2023-10-20] MEDS: BUMETANIDE 1 MG TABLET PO (20:05)
[2023-10-20] MEDS: MELATONIN 5 MG TABLET PO (20:10)
[2023-10-20] MEDS: LATANOPROST 0.005% OP SOLN 2.5 ML BTL 1 DROP EACH EYE (20:12)
[2023-10-20] MEDS: INSULIN GLARGINE (*BKC) 100 UNITS/ML 15 UNITS SUB-Q (20:15)
[2023-10-21] VITALS (9 sets, daily range): BP systolic 97–108; BP diastolic 51–84; PULSE 62–89; RESP 18–22; TEMP 35.8–36.6; O2SAT 95–99; BMI 10.0
[2023-10-21 06:17] LABS: Basophils Percent Auto 0.8 % (0.2-1.2); Eosinophils Absolute Auto 0.4 K/mm3 (0-0.3); Eosinophils Percent Auto 7.2 % (0-4.4); Hematocrit 27.6 % (37.0-47.0); Hemoglobin 8.1 g/dL (12.0-15.0); Immature Granulocyte Absolute 0.02 K/mm3 (0.00-0.031); Immature Granulocyte Percent A 0.4 % (0-0.5); Lymphocytes Absolute Auto 0.52 K/mm3 (0.9-3.2); Lymphocytes Percent Auto 10.8 % (18.3-44.2); Mean Corpuscular HGB Conc 29.3 g/dl (32-36); Mean Corpuscular Hemoglobin 31.4 pg (26-34); Mean Platelet Volume 11.7 fl (7.4-10.4); Monocytes Absolute Auto 0.6 K/mm3 (0.1-0.6); Neutrophils Absolute Auto 3.3 K/mm3 (1.3-6.7); Neutrophils Percent Auto 68.8 % (45.5-73.1); Platelet Count Result 139 k/mm3 (150-375); Red Blood Count 2.58 M/mm3 (4.2-5.4); Red Cell Distribution Width 15.1 % (11.5-14.5); White Blood Count 4.8 K/mm3 (4.5-10.0)
[2023-10-21 06:23] LABS: Alanine Aminotransferase 10 U/L (6-35); Albumin Level 2.9 g/dL (3.5-5.1); Alkaline Phosphatase 55 U/L (38-126); Anion Gap 6 mmol/L (4-12); Aspartate Amino Transferase 18 U/L (14-36); Bilirubin,Total 0.4 mg/dL (0.2-1.3); Blood Urea Nitrogen 68 mg/dL (7-17); Calcium 8.5 mg/dL (8.4-10.2); Carbon Dioxide 32 mmol/L (22-30); Chloride 99 mmol/L (98-107); Estimated CRCL calculation 24 ml/min; Estimated Glomerular Filt Rate 16; Glucose 106 mg/dL (65-110); Magnesium 2.2 mg/dL (1.6-2.3); Potassium 3.8 mmol/L (3.4-5.0); Sodium 137 mmol/L (137-145)
[2023-10-21 08:11] LABS: Glucose Point of Care 110 mg/dl (65-105)
--- NOTE | 2023-10-21 09:12 | PCNWS ---
Weekly nutritional screen. Patient is tolerating current diet with adequate intake, 50-100, mostly 100%. No weight loss reported. No nutritional needs at this time.
[2023-10-21] MEDS: PANTOPRAZOLE 40 MG TABLET PO (09:21)
[2023-10-21] MEDS: TAMSULOSIN HCL 0.4 MG CAPSULE PO (09:21)
[2023-10-21] MEDS: SACUBITRIL/VALSARTAN 24-26 MG TABLET 1 TAB PO (09:22)
[2023-10-21] MEDS: BUMETANIDE 1 MG TABLET PO (09:22)
[2023-10-21] MEDS: acetaZOLAMIDE TAB 250 MG TABLET PO (09:22)
[2023-10-21] MEDS: busPIRone HCL 2.5 MG TABLET 7.5 MG PO (09:22)
[2023-10-21] MEDS: ASPIRIN 81 MG ENTERIC TABLET PO (09:22)
[2023-10-21] MEDS: SACCHAROMYCES BOULARDII 250 MG CAPSULE PO (09:22)
[2023-10-21] MEDS: CYANOCOBALAMIN 1,000 MCG TABLET 1000 MCG PO (09:22)
[2023-10-21] MEDS: FAMOTIDINE 20 MG TABLET PO (09:22)
[2023-10-21] MEDS: METOPROLOL TARTRATE 50 MG TAB PO (09:22)
[2023-10-21] MEDS: DULoxetine HCL 30 MG CAPSULE.DR PO (09:22)
[2023-10-21] MEDS: MULTIVITAMINS THERAPEUTIC TAB (*BKC) 1 TABLET PO (09:22)
[2023-10-21] MEDS: CHOLECALCIFEROL 1,000 UNITS TABLET 1000 UNITS PO (09:23)
[2023-10-21] MEDS: ASCORBIC ACID 500 MG TABLET 1000 MG PO (09:23)
[2023-10-21] MEDS: metOLazone 5 MG TABLET PO (09:23)
[2023-10-21] MEDS: CALCIUM CARBONATE (OSCAL) 500 MG TABLET PO (09:23)
[2023-10-21] MEDS: TRIAMCINOLONE ACET 0.1% OINT 15 GM TUBE 1 APPLIC TOPICAL ×2 (09:24→16:27)
[2023-10-21] MEDS: TOLNAFTATE 1% POWDER 45 GM BTL 1 APPLIC TOPICAL (09:24)
[2023-10-21] MEDS: SODIUM ZIRCONIUM CYCLOSILICATE 5 GM POWD.PACK PO (09:25)
[2023-10-21] MEDS: ACETAMINOPHEN 325 MG TABLET 650 MG PO ×2 (09:27→15:58)
--- NOTE | 2023-10-21 10:01 | P.PNNP_ITS ---
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 * follow trend of repeat labs and UOP (2) Stage 3b chronic kidney disease: Code(s): N18.32 - Chronic kidney disease, stage 3b Status: Chronic Assessment and Plan: * baseline creatinine usually runs ~ 1.1 - 1.6 mg/dL * secondary to her diabetes, hypertension, vascular disease, obstructive sleep apnea/pulmonary hypertension, and chronic CHF with the necessity for diuretic therapy along with age-related change (3) Acute on chronic respiratory failure with hypoxia and hypercapnia: Code(s): J96.21 - Acute and chronic respiratory failure with hypoxia; J96.22 - Acute and chronic respiratory failure with hypercapnia Status: Acute Assessment and Plan: * felt to be due to a combination of volume overload/CHF and pneumonia complicated by her ANNIE/OHS * Cardiology and Pulmonary following * see #4 and #5 (4) Pneumonia: Code(s): J18.9 - Pneumonia, unspecified organism Status: Acute Assessment and Plan: * as suggested by admission imaging * on antibiotics * BiPAP support as needed * continue supplemental oxygen * s/p thoracentesis (on 10/09) * Pulmonary following (5) Acute exacerbation of CHF (congestive heart failure): Qualifiers: Heart failure type: unspecified Qualified Code(s): I50.9 - Heart failure, unspecified Code(s): I50.9 - Heart failure, unspecified Status: Acute Assessment and Plan: * as evidenced by findings on admission * last Echo noted * back on diuretic therapy (loop diuretics and acetazolamide) * follow I/Os, daily weights, and respiratory status * Cardiology following (6) UTI (urinary tract infection): Code(s): N39.0 - Urinary tract infection, site not specified Status: Acute Assessment and Plan: * as suggested by admission UA * urine culture with Proteus mirabilis * completed treatment (7) Hypertension: Code(s): I10 - Essential (primary) hypertension Status: Chronic Assessment and Plan: * running a bit on the soft side * BP medications with parameters * follow trend of hemodynamics (8) Type 2 diabetes mellitus with diabetic nephropathy, with long-term current use of insulin: Code(s): E11.21 - Type 2 diabetes mellitus with diabetic nephropathy; Z79.4 - correction (current) use of insulin Status: Chronic Assessment and Plan: * follow accu-cheks * glycemic control per hospitalists Will continue to follow. Subjective Date/time seen: 10/21/23 10:01 Interval history: Follow-up for acute kidney injruy/acute renal failure on chronic kidney disease. Renal function/creatinine as well as respiratory status remain stable at this time; no apparent distress voiced at the time of my visit; no other acute complaints voiced; no issues/events overnight or earlier this morning. Exam Narrative: General:
--- NOTE | 2023-10-21 10:01 | PM.PNNEP ---
Progress Note: A&P Assessment and Plan (1) Acute kidney injury: Code(s): N17.9 - Acute kidney failure, unspecified Status: Acute Assessment and Plan: suspect secondary to need for diuretic therapy to attain relative euvolemia with contributions from previous UTI and relative hypotension evaluation to date noted: urine electrolytes suggest prerenal azotemia renal u/s consistent with CKD urine eosinophils negative CPK okay this maybe a situation where we have to accept a higher creatinine to maintain her volume status she remains at risk for [facility]EN[employer]/dialysis in the near future follow trend of repeat labs and UOP (2) Stage 3b chronic kidney disease: Code(s): N18.32 - Chronic kidney disease, stage 3b Status: Chronic Assessment and Plan: baseline creatinine usually runs ~ 1.1 - 1.6 mg/dL secondary to her diabetes, hypertension, vascular disease, obstructive sleep apnea/pulmonary hypertension, and chronic CHF with the necessity for diuretic therapy along with age-related change (3) Acute on chronic respiratory failure with hypoxia and hypercapnia: Code(s): J96.21 - Acute and chronic respiratory failure with hypoxia; J96.22 - Acute and chronic respiratory failure with hypercapnia Status: Acute Assessment and Plan: felt to be due to a combination of volume overload/CHF and pneumonia complicated by her ANNIE/OHS Cardiology and Pulmonary following see #4 and #5 (4) Pneumonia: Code(s): J18.9 - Pneumonia, unspecified organism Status: Acute Assessment and Plan: as suggested by admission imaging on antibiotics BiPAP support as needed continue supplemental oxygen s/p thoracentesis (on 10/09) Pulmonary following (5) Acute exacerbation of CHF (congestive heart failure): Qualifiers: Heart failure type: unspecified Qualified Code(s): I50.9 - Heart failure, unspecified Code(s): I50.9 - Heart failure, unspecified Status: Acute Assessment and Plan: as evidenced by findings on admission last Echo noted back on diuretic therapy (loop diuretics and acetazolamide) follow I/Os, daily weights, and respiratory status Cardiology following (6) UTI (urinary tract infection): Code(s): N39.0 - Urinary tract infection, site not specified Status: Acute Assessment and Plan: as suggested by admission UA urine culture with Proteus mirabilis completed treatment (7) Hypertension: Code(s): I10 - Essential (primary) hypertension Status: Chronic Assessment and Plan: running a bit on the soft side BP medications with parameters follow trend of hemodynamics (8) Type 2 diabetes mellitus with diabetic nephropathy, with long-term current use of insulin: Code(s): E11.21 - Type 2 diabetes mellitus with diabetic nephropathy; Z79.4 - intermediate (current) use of insulin Status: Chronic Assessment and Plan: follow accu-cheks glycemic control per hospitalists Will continue to follow. Subjective Date/time seen: 10/21/23 10:01 Interval history: Follow-up for acute kidney injruy/acute renal failure on chronic kidney disease. Renal function/creatinine as well as respiratory status remain stable at this time; no apparent distress voiced at the time of my visit; no other acute complaints voiced; no issues/events overnight or earlier this morning. Exam Narrative: General: large and somewhat ill appearing female in NAD Heart: normal S1 and S2; no rub Lungs: coarse throughout with decreased breath sounds at bases Abdomen: soft, nontender, nondistended, positive bowel sounds Extremities: no cyanosis or clubbing; 1+ edema Skin: no rash or nodules Objective Data Vital Signs Vital Signs: Vital Signs Temp Pulse Resp BP Pulse Ox O2 Del Method O2 Flow Rate 10/21/23 09:22 70 10/21/23 08:50 95 Nasal Cannula 2 10/21/23 06:00 9
--- NOTE | 2023-10-21 10:35 | PC.NURSE ---
automotive service technician called to inform me that Pt is very combative. Dr. Corona was called at [phone] and message was vm was left.
[2023-10-21 13:02] LABS: Glucose Point of Care 176 mg/dl (65-105)
[2023-10-21] MEDS: hydrOXYzine HCL 25 MG TABLET PO (13:17)
--- NOTE | 2023-10-21 14:23 | PM.DS ---
DS: Admitting Diagnosis Discharge Date 10/21/23 Admitting Diagnosis Hallucination and hypoxia DS: Discharge Diagnosis Discharge Diagnosis (1) Acute on chronic respiratory failure with hypoxia and hypercapnia: Code(s): J96.21 - Acute and chronic respiratory failure with hypoxia; J96.22 - Acute and chronic respiratory failure with hypercapnia Status: Acute (2) Atrial fibrillation with rapid ventricular response: Code(s): I48.91 - Unspecified atrial fibrillation Status: Acute (3) Acute exacerbation of CHF (congestive heart failure): Qualifiers: Heart failure type: unspecified Qualified Code(s): I50.9 - Heart failure, unspecified Code(s): I50.9 - Heart failure, unspecified Status: Acute (4) Hypertension: Code(s): I10 - Essential (primary) hypertension Status: Chronic (5) Type 2 diabetes mellitus with diabetic neuropathy: Qualifiers: 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 Qualified Code(s): E11.40 - Type 2 diabetes mellitus with diabetic neuropathy, unspecified; Z79.4 - termite technician (current) use of insulin Code(s): E11.40 - Type 2 diabetes mellitus with diabetic neuropathy, unspecified Status: Chronic (6) Obstructive sleep apnea: Onset Date: Code(s): G47.33 - Obstructive sleep apnea (adult) (pediatric) Status: Chronic (7) Obesity hypoventilation syndrome: Code(s): E66.2 - Morbid (severe) obesity with alveolar hypoventilation Status: Acute (8) CKD (chronic kidney disease): Qualifiers: Chronic kidney disease stage: unspecified stage Qualified Code(s): N18.9 - Chronic kidney disease, unspecified Code(s): N18.9 - Chronic kidney disease, unspecified Status: Chronic (9) UTI (urinary tract infection): Qualifiers: Hematuria presence: with hematuria Urinary tract infection type: acute cystitis Qualified Code(s): N30.01 - Acute cystitis with hematuria Code(s): N39.0 - Urinary tract infection, site not specified Status: Acute (10) Acute kidney injury: Code(s): N17.9 - Acute kidney failure, unspecified Status: Acute (11) Pneumonia: Code(s): J18.9 - Pneumonia, unspecified organism Status: Inactive DS: Summary Hospital Course Reason for hospitalization: 73yo female with DM, AFib on Xarelto, CHF, pHTN, CKD, ANNIE and obesity/hypovent syndrome here for hallucination and hypoxia. Please see H&P for details. Hospital Course: Patient presents with hallucinations felt related to hypoxia. Chest x-ray shows airspace opacities in the mid and lower lung zones as well as small-moderate effusions. ABG showed pH of 7.32 with a CO2 of 59. CT of the chest showed mild pulmonary edema and moderate right and small left pleural effusion. Moderate size pericardial effusion noted. She was started on IV Lasix. Cardiology and Nephrology were consulted. Viral panel was negative. She was started on antibiotics. Thoracentesis was performed with removal of 1 L. no studies were performed. Echocardiogram ordered but patient refused. Pulmonary was consulted. BiPAP settings were optimized and ABG improved. Was felt her symptoms were related to obesity-hypoventilation syndrome and acute CHF. She completed a course of antibiotics for her pneumonia. Patient had atrial fibrillation with RVR requiring diltiazem drip. Heart rate became better controlled and she was transitioned back to home medications. We continued her Xarelto. She refused echo cardiogram here. Last echocardiogram showed that she probably has acute on chronic diastolic CHF. Probably with right-sided failure as well. Patient had UTI growing Proteus mirabilis. She completed a course of antibiotics. Patient has CKD with creatinine down to 1.7. She developed acute kidney injury with creatinine up into the high 2 range. Nephrology was following. They felt that this may be
[2023-10-21 16:28] LABS: SARS-CoV-2 RNA PCR Negative (Negative)
[2023-10-21 17:13] LABS: Glucose Point of Care 213 mg/dl (65-105)
--- NOTE | 2023-10-21 17:28 | PC.NURSE ---
1700 MEDS Weren't given because pt wanted to get them at her facility. Adwoa WHATLEY at [facility] was informed.
--- NOTE | 2023-11-11 08:41 | PC.NURSE ---
Body fluid cx is negatie. Fungal cx is negative. Dr. Chloe kenney.
--- NOTE | 2023-11-25 09:58 | PC.NURSE ---
AFB cx shows no growth. Dr. Chloe kenney.
== END 2023-10-21 17:20 | DRG 291 ==
LOC: ANHED 10:43 → ANHIMU 12:55 → ANH3MEDSUR 10-21 14:44 → ANHIMU 10-25 08:20
PROVIDERS: Internal Medicine Nephrology; Internal Medicine Pulmonary Disease; Nurse Practitioner Acute Care; Physician Assistant; Student in an Organized Health Care Education/Training Program; Admitting Provider Hospitalist; Emergency Provider Physician Assistant; PCP Family Medicine; Visit Provider Internal Medicine
DX: I13.0 Hypertensive heart and chronic kidney disease with heart failure and stage 1 through stage 4 chronic kidney disease, or unspecified chronic kidney disease (principal); I50.33 Acute on chronic diastolic (congestive) heart failure; J96.21 Acute and chronic respiratory failure with hypoxia; J96.22 Acute and chronic respiratory failure with hypercapnia; J18.9 Pneumonia, unspecified organism; E66.2 Morbid (severe) obesity with alveolar hypoventilation; Z68.44 Body mass index [BMI] 60.0-69.9, adult; N39.0 Urinary tract infection, site not specified; J90 Pleural effusion, not elsewhere classified; N17.9 Acute kidney failure, unspecified; R44.2 Other hallucinations; J44.0 Chronic obstructive pulmonary disease with (acute) lower respiratory infection; B96.4 Proteus (mirabilis) (morganii) as the cause of diseases classified elsewhere; Z91.199 Patient's noncompliance with other medical treatment and regimen due to unspecified reason; E11.22 Type 2 diabetes mellitus with diabetic chronic kidney disease; K21.9 Gastro-esophageal reflux disease without esophagitis; M81.0 Age-related osteoporosis without current pathological fracture; E11.42 Type 2 diabetes mellitus with diabetic polyneuropathy; M47.816 Spondylosis without myelopathy or radiculopathy, lumbar region; K31.819 Angiodysplasia of stomach and duodenum without bleeding; H40.9 Unspecified glaucoma; E78.5 Hyperlipidemia, unspecified; K57.90 Diverticulosis of intestine, part unspecified, without perforation or abscess without bleeding; M19.90 Unspecified osteoarthritis, unspecified site; J45.909 Unspecified asthma, uncomplicated; N18.32 Chronic kidney disease, stage 3b; I35.0 Nonrheumatic aortic (valve) stenosis; I48.91 Unspecified atrial fibrillation; Z20.822 Contact with and (suspected) exposure to COVID-19; Z85.42 Personal history of malignant neoplasm of other parts of uterus; Z90.710 Acquired absence of both cervix and uterus; Z95.2 Presence of prosthetic heart valve; Z96.1 Presence of intraocular lens; Z96.653 Presence of artificial knee joint, bilateral; Z90.49 Acquired absence of other specified parts of digestive tract; Z98.42 Cataract extraction status, left eye; Z98.41 Cataract extraction status, right eye; Z79.01 Long term (current) use of anticoagulants; Z79.4 Long term (current) use of insulin
CPT/HCPCS: 32555; 36415; 36600; 70450; 71045; 71046; 71250; 76775; 80053; 80307; 81001; 82040; 82150; 82247; 82375; 82465; 82550; 82570; 82607; 82746; 82805; 82947; 82948; 83036; 83050; 83605; 83615; 83735; 83880; 83935; 84145; 84155; 84300; 84311; 84439; 84443; 84484; 85025; 85055; 85610; 85730; 85999; 87015; 87040; 87070; 87075; 87077; 87086; 87088; 87102; 87116; 87186; 87205; 87206; 87635; 87637; 87641; 88108; 88305; 93005; 94002; 94003; 94640; 94762; 96365; 96367; 96375; 97110; 97161; 97166; 97530; 97535; 99285; A9270; G0378; J0456; J0696; J1815; J1939; J1940; J2185; J3370; J7040

== ENCOUNTER 2023-10-25 13:22 | Outpatient (CLI) | payer OTHER, MEDICARE, SELFPAY ==
[2023-10-25 13:41] LABS: Basophils Absolute Auto 0.1 K/mm3 (0.0-0.1); Basophils Percent Auto 0.7 % (0.2-1.2); Eosinophils Absolute Auto 0.4 K/mm3 (0-0.3); Eosinophils Percent Auto 6.4 % (0-4.4); Hematocrit 27.9 % (37.0-47.0); Hemoglobin 8.4 g/dL (12.0-15.0); Immature Granulocyte Absolute 0.03 K/mm3 (0.00-0.031); Immature Granulocyte Percent A 0.4 % (0-0.5); Lymphocytes Absolute Auto 0.43 K/mm3 (0.9-3.2); Lymphocytes Percent Auto 6.4 % (18.3-44.2); Mean Corpuscular HGB Conc 30.1 g/dl (32-36); Mean Corpuscular Hemoglobin 31.9 pg (26-34); Mean Corpuscular Volume 106.1 fl (80-100); Mean Platelet Volume 10.1 fl (7.4-10.4); Monocytes Absolute Auto 0.5 K/mm3 (0.1-0.6); Monocytes Percent Auto 7.9 % (2.6-8.5); Neutrophils Absolute Auto 5.2 K/mm3 (1.3-6.7); Neutrophils Percent Auto 78.2 % (45.5-73.1); Platelet Count Result 156 k/mm3 (150-375); Red Blood Count 2.63 M/mm3 (4.2-5.4); White Blood Count 6.7 K/mm3 (4.5-10.0)
[2023-10-25 13:46] LABS: Blood Urea Nitrogen 53 mg/dL (8-26); Carbon Dioxide 35 mmol/L (22-30); Chloride 93 mmol/L (98-109); Estimated Glomerular Filt Rate 16; Glucose 191 mg/dL (70-105); Ionized Calcium (POC) 1.19 mmol/L (1.11-1.31); Sodium 141 mmol/L (138-146)
[2023-10-25 17:22] LABS: Iron 42 ug/dL (37-170)
[2023-10-25 17:30] LABS: Alanine Aminotransferase 12 U/L (6-35); Albumin Level 3.3 g/dL (3.5-5.1); Alkaline Phosphatase 73 U/L (38-126); Anion Gap 7 mmol/L (4-12); Aspartate Amino Transferase 17 U/L (14-36); Bilirubin,Total 0.4 mg/dL (0.2-1.3); Blood Urea Nitrogen 58 mg/dL (7-17); Calcium 8.7 mg/dL (8.4-10.2); Carbon Dioxide 35 mmol/L (22-30); Chloride 97 mmol/L (98-107); Estimated Glomerular Filt Rate 18; Glucose 184 mg/dL (65-110); Sodium 139 mmol/L (137-145)
[2023-10-25 17:35] LABS: Percent Iron Saturation 14 % (20-50)
[2023-10-25 18:53] LABS: Vitamin B12 > 1000.0 pg/mL (239-931)
== END 2023-10-25 13:23 | disposition home or self-care (01) ==
LOC: ANHLAB 13:27
PROVIDERS: PCP Family Medicine; Visit Provider Internal Medicine Hematology & Oncology
DX: D64.9 Anemia, unspecified (principal)
CPT/HCPCS: 36415; 80047; 80053; 82607; 82728; 82746; 83540; 83550; 85025